=== PATIENT | female | born 1965 | race Caucasian/White ===

== ENCOUNTER 2017-12-08 08:32 | Emergency (ER) | payer OTHER ==
[2017-12-08] MEDS ORDERED: PROMETHAZINE 25 MG/ML VIAL ONE (09:28)
[2017-12-08] MEDS ORDERED: KETOROLAC 30 MG/ML INJ ONE (09:29)
--- NOTE | 2017-12-08 10:26 | EDPHYS ---
Physician Documentation [facility] Name: Maribel Soto Age: 52 yrs Sex: Female : 1965 Arrival Date: 12/08/2017 Time: 08:35 Bed 8 Private MD: out of town, doctor ED Physician Zaki Serra HPI: 12/08 09:43 This 52 yrs old Female presents to ER via Ambulatory with complaints of snw Headache. 09:43 The patient complains of pain to the right eye. The patient describes the headache as snw aching, pounding. Onset: The symptoms/episode began/occurred gradually, 5 day(s) ago, and became persistent. Associated signs and symptoms: Pertinent positives: malaise, Photophobia Pertinent negatives: fever, neck stiffness. Severity of symptoms: At its worst the pain was moderate, severe. Headache History: Other pt states this headache is more localized behind right eye than other migraines. Has used sumatriptan 2 times in past 24 hours. The patient has experienced similar episodes in the past. It is unknown whether or not the patient has recently seen a physician. sees Dr. Teixeira, pt with hx of lupus. 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 - Irregular menses hj Historical: - Allergies: 08:53 BACLOFEN; iw 08:53 Opana; iw 08:53 PENICILLINS; iw 08:53 Zofran; iw - Home Meds: 08:53 fentanyl 50 mcg/hr Topical pt72 1 patch every 72 hours [Active]; BuSpar 100mg Oral iw three times a day [Active]; lithium carbonate 450 mg Oral TbER 2 tabs nightly [Active]; Phenergan Oral 50 mg every 6 hours [Active]; sumatriptan succinate 6 mg/0.5 mL Sub-Q syrg as needed [Active]; gabapentin oral oral 3 times per day [Active]; naratriptan oral oral daily [Active]; Seroquel Oral [Active]; - PMHx: 08:53 Anxiety; Asthma; Chronic pain; Diverticulitis; Fibromyalgia; Lupus; Migraines; Ulcers; iw Bryce; - PSHx: 08:54 Unable to obtain; hj - Immunization history:: Adult Immunizations up to date. - Ebola Screening: : Patient negative for fever greater than or equal to 101.5 degrees Fahrenheit, and additional compatible Ebola Virus Disease symptoms Patient denies exposure to infectious person Patient denies travel to an Ebola-affected area in the 21 days before illness onset No symptoms or risks identified at this time. - Social history:: Smoking status: Patient uses tobacco products, Patient/guardian denies using alcohol. ROS: 09:42 Constitutional: Negative for fever, chills, and weight loss, Eyes: Negative for injury, snw pain, redness, and discharge, ENT: Negative for injury, pain, and discharge, Neck: Negative for injury, pain, and swelling, Cardiovascular: Negative for chest pain, palpitations, and edema, Respiratory: Negative for shortness of breath, cough, wheezing, and pleuritic chest pain, Abdomen/GI: Negative for abdominal pain, nausea, vomiting, diarrhea, and constipation, Back: Negative for injury and pain, : Negative for injury, bleeding, discharge, and swelling, MS/Extremity: Negative for injury and deformity, Skin: Negative for injury, rash, and discoloration. 09:42 Neuro: Positive for headache. Exam: 09:42 Constitutional: This is a well developed, well nourished patient who is awake, alert, snw and in no acute distress. 09:42 Eyes: Pupils equal round and reactive to light, extra-ocular motions intact. Lids and lashes normal. Conjunctiva and sclera are non-icteric and not injected. Cornea within normal limits. Periorbital areas with no swelling, redness, or edema. ENT: Nares patent. No nasal discharge, no septal abnormalities noted. Tympanic membranes are normal and external auditory canals are clear. Oropharynx with no redness, swelling, or masses, exudates, or evidence of obstruction, uvula midline. Mucous membranes moist. Neck: Trachea midline, no thyromegaly or masses palpated, and no cervical lymphadenopathy. Supple, full range of motion without nuchal rigidity, or vertebral point tenderness. No Meningismus. Chest/axilla: Normal chest wall appearance and motion. Nontender with no deformity. No lesions are appreciated. Cardiovascular: Regular rate and rhythm with a normal S1 and S2. No gallops, murmurs, or rubs. Normal PMI, no JVD. No pulse deficits. Respiratory: Lungs have equal breath sounds bilaterally, clear to auscultation and percussion. No rales, rhonchi or wheezes noted. No increased work of breathing, no retractions or nasal flaring. Abdomen/GI: Soft, non-tender, with normal bowel sounds. No distension or tympany. No guarding or rebound. No evidence of tenderness throughout. Back: No spinal tenderness. No costovertebral tenderness. Full range of motion. Skin: Warm, dry with normal turgor. Normal color with no rashes, no lesions, and no evidence of cellulitis. MS/ Extremity: Pulses equal, no cyanosis. Neurovascular intact. Full, normal range of motion. Psych: Awake, alert, with orientation to person, place and time. Behavior, mood, and affect are within normal limits. 09:42 Head/face: Noted is pallor. 09:42 Neuro: Orientation: is normal, Mentation: is normal, Motor: is normal, Sensation: is normal, seizure activity, is not displayed by the patient. Vital Signs: 08:55 BP 92 / 71; Pulse 84; Resp 16; Temp 98.2(O); Pulse Ox 98% on R/A; iw 10:06 BP 112 / 97; Pulse 80; Resp 18; Pulse Ox 98% on R/A; hj 10:24 BP 118 / 95; Pulse 75; Resp 18; Pulse Ox 100% on R/A; hj MDM: 08:45 Patient medically screened. [facility] 12/08 08:45 Order name: Urine Culture [facility] 12/08 08:45 Order name: Urine Microscopic Only [facility] 12/08 09:31 Order name: Urine Dipstick--Ancillary (enter results) 12/08 08:45 Order name: Urine Dipstick-Ancillary (obtain specimen); Complete Time: 09:31 snw Administered Medications: 08:52 CANCELLED (Duplicate Order): fentaNYL (PF) 50 mcg IM once snw 09:33 Drug: TORadol 60 mg Route: IM; Site: left deltoid; hj 10:31 Follow up: Response: No adverse reaction; Pain is decreased 09:33 Drug: Phenergan 25 mg Route: IM; Site: right deltoid; hj 10:31 Follow up: Response: No adverse reaction hj Disposition: 12/08/17 10:25 Discharged to Home. Impression: Migraine, unspecified, not intractable. - Condition is Stable. - Discharge Instructions: Migraine Headache, Rehydration, Adult. - Prescriptions for Diclofenac Sodium 75 mg Oral Tablet Sustained Release - take 1 tablet by ORAL route 2 times per day; 30 tablet. promethazine 25 mg Oral Tablet - take 1 tablet by ORAL route every 6 hours As needed; 20 tablet. - Medication Reconciliation Form, Thank You Letter, Antibiotic Education, Prescription Opioid Use form. - Follow up: Private Physician; When: 1 - 2 days; Reason: Recheck today's complaints, Continuance of care, Re-evaluation by your physician. Follow up: Emergency Department; When: As needed; Reason: Worsening of condition. Addendum: 12/11/2017 06:15 Co-signature as Attending Physician, Zaki Serra MD. g s Signatures: Dispatcher [employer] EDMS Yaima Izquierdo, ALIGNMENT MECHANIC-C ALIGNMENT MECHANIC-Csnw Hina Torrez, RN RN Art Martin RN RN Zaki Albarado MD MD gs Corrections: (The following items were deleted from the chart) 12/08 08:52 08:50 fentaNYL (PF) 50 mcg IM once ordered. snw snw 10:31 10:25 12/08/2017 10:25 Discharged to Home. Impression: Migraine, unspecified, not hj intractable. Condition is Stable. Forms are Medication Reconciliation Form, Thank You Letter, Antibiotic Education, Prescription Opioid Use. Follow up: Private Physician; When: 1 - 2 days; Reason: Recheck today's complaints, Continuance of care, Re-evaluation by your physician. Follow up: Emergency Department; When: As needed; Reason: Worsening of condition. snw
--- NOTE | 2017-12-08 10:26 | ER ---
Nurse's Notes [facility] Name: Maribel Soto Age: 52 yrs Sex: Female : 1965 Arrival Date: 12/08/2017 Time: 08:35 Bed 8 Private MD: out of town, doctor Diagnosis: Migraine, unspecified, not intractable Presentation: 12/08 08:54 Presenting complaint: Patient states: has had migraine since , +hx of iw migraines, has been taking home meds with no relief. Transition of care: patient was not received from another setting of care. Onset of symptoms was December 04, 2017. Risk Assessment: Do you want to hurt yourself or someone else? Patient reports no desire to harm self or others. Initial Sepsis Screen: Does the patient meet any 2 criteria? No. Patient's initial sepsis screen is negative. Does the patient have a suspected source of infection? No. Patient's initial sepsis screen is negative. Care prior to arrival: None. 08:54 Method Of Arrival: Ambulatory iw 08:54 Acuity: LILIAN 3 iw Triage Assessment: 08:54 General: Appears in no apparent distress. uncomfortable, Behavior is calm, cooperative, hj appropriate for age. Pain: Complains of pain in head Pain currently is 10 out of 10 on a pain scale. Pain began Also complains of nausea. EENT: No signs and/or symptoms were reported regarding the EENT system. Neuro: Level of Consciousness is awake, alert, obeys commands, Oriented to person, place, time, situation, Appropriate for age. Cardiovascular: Denies chest pain, Heart tones S1 S2 present Capillary refill < 3 seconds Patient's skin is warm and dry. Respiratory: Airway is patent Respiratory effort is even, unlabored, Respiratory pattern is regular, symmetrical. GI: No signs and/or symptoms were reported involving the gastrointestinal system. : No signs and/or symptoms were reported regarding the genitourinary system. Derm: No signs and/or symptoms reported regarding the dermatologic system. Musculoskeletal: No signs and/or symptoms reported regarding the musculoskeletal system. 08:54 Headache History: The patient has had previous headaches. 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 - Irregular menses hj Historical: - Allergies: 08:53 BACLOFEN; iw 08:53 Opana; iw 08:53 PENICILLINS; iw 08:53 Zofran; iw - Home Meds: 08:53 fentanyl 50 mcg/hr Topical pt72 1 patch every 72 hours [Active]; BuSpar 100mg Oral iw three times a day [Active]; lithium carbonate 450 mg Oral TbER 2 tabs nightly [Active]; Phenergan Oral 50 mg every 6 hours [Active]; sumatriptan succinate 6 mg/0.5 mL Sub-Q syrg as needed [Active]; gabapentin oral oral 3 times per day [Active]; naratriptan oral oral daily [Active]; Seroquel Oral [Active]; - PMHx: 08:53 Anxiety; Asthma; Chronic pain; Diverticulitis; Fibromyalgia; Lupus; Migraines; Ulcers; iw Bryce; - PSHx: 08:54 Unable to obtain; hj - Immunization history:: Adult Immunizations up to date. - Ebola Screening: : Patient negative for fever greater than or equal to 101.5 degrees Fahrenheit, and additional compatible Ebola Virus Disease symptoms Patient denies exposure to infectious person Patient denies travel to an Ebola-affected area in the 21 days before illness onset No symptoms or risks identified at this time. - Social history:: Smoking status: Patient uses tobacco products, Patient/guardian denies using alcohol. Screenin:54 Abuse screen: Denies threats or abuse. Denies injuries from another. Nutritional hj screening: No deficits noted. Tuberculosis screening: No symptoms or risk factors identified. Fall Risk None identified. Assessment: 09:00 Reassessment: see triage for assessment;. hj 09:53 Reassessment: Patient and/or family updated on plan of care and expected duration. Pain hj level reassessed. Patient is alert, oriented x 3, equal unlabored respirations, skin warm/dry/pink. Patient states feeling better. Patient states symptoms have improved. 10:30 Reassessment: Patient and/or family updated on plan of care and expected duration. Pain hj level reassessed. Vital Signs: 08:55 BP 92 / 71; Pulse 84; Resp 16; Temp 98.2(O); Pulse Ox 98% on R/A; iw 10:06 BP 112 / 97; Pulse 80; Resp 18; Pulse Ox 98% on R/A; hj 10:24 BP 118 / 95; Pulse 75; Resp 18; Pulse Ox 100% on R/A; hj ED Course: 08:35 Patient arrived in ED. mr 08:36 out of town, doctor is Private Physician. mr 08:43 Yaima Izquierdo FNP-C is [facility]. snw 08:43 Zaki Serra MD is Attending Physician. snw 08:54 Patient has correct armband on for positive identification. Bed in low position. Call hj light in reach. Side rails up X 1. 08:55 Triage completed. iw 08:55 Arm band placed on. iw 09:31 Urine collected: clean catch specimen, clear, claude colored. jb1 09:39 Art Garland, RN is Primary Nurse. hj 10:29 No provider procedures requiring assistance completed. Patient did not have IV access hj during this emergency room visit. Administered Medications: 08:52 CANCELLED (Duplicate Order): fentaNYL (PF) 50 mcg IM once snw 09:33 Drug: TORadol 60 mg Route: IM; Site: left deltoid; hj 10:31 Follow up: Response: No adverse reaction; Pain is decreased hj 09:33 Drug: Phenergan 25 mg Route: IM; Site: right deltoid; hj 10:31 Follow up: Response: No adverse reaction hj Outcome: 10:25 Discharge ordered by MD. snw 10:29 Discharged to home ambulatory. hj 10:29 Condition: stable 10:29 Discharge instructions given to patient, Instructed on discharge instructions, follow up and referral plans. medication usage, Demonstrated understanding of instructions, follow-up care, medications, Prescriptions given X 2. 10:31 Patient left the ED. hj Signatures: Jose Phillips jb1 Yaima Izquierdo FNP-C FNP-Venkat Adelia Schreiber Hina Torrez, RN RN iw Art Garland, RN RN
[2017-12-08 10:47] VITALS: TEMP 98.2
[2017-12-08 10:50] VITALS: BP 118/95; O2SAT 100
[2017-12-08 10:59] LABS: Urine Bacteria 20-50 /HPF (<20); Urine Culture Reflex Order NOT NEEDED; Urine RBC <5 /HPF (NONE SEEN)
[2017-12-08 15:45] LABS: Urine Blood NEGATIVE (NEG); Urine Glucose NEGATIVE (NEG); Urine Protein 1+ (NEG)
== END 2017-12-08 10:31 | disposition home or self-care (01) ==
LOC: ER 08:32
DX: G43.909 Migraine, unspecified, not intractable, without status migrainosus (principal); J45.909 Unspecified asthma, uncomplicated; M32.9 Systemic lupus erythematosus, unspecified; Z88.6 Allergy status to analgesic agent; Z88.0 Allergy status to penicillin; Z88.8 Allergy status to other drugs, medicaments and biological substances
CPT/HCPCS: 87086; 87088; 96372; 99283; J2550; 81003; 81015

== ENCOUNTER 2018-02-10 08:44 | Emergency (ER) | payer OTHER ==
--- NOTE | 2018-02-10 09:19 | EDPHYS ---
Physician Documentation [facility] Name: Maribel Soto Age: 52 yrs Sex: Female : 1965 Arrival Date: 02/10/2018 Time: 08:45 Bed 18 Private MD: Valeria Sawant ED Physician Kavon Mack HPI: 02/10 08:57 This 52 yrs old Female presents to ER via Unassigned with complaints of Fall jr8 Injury - FOOT. 08:57 Details of fall: The patient fell from an upright position. Onset: The symptoms/episode jr8 began/occurred acutely, 2 day(s) ago. Associated injuries: The patient sustained left foot. Severity of symptoms: At their worst the symptoms were moderate, in the emergency department the symptoms are unchanged. It is unknown whether or not the patient has had similar symptoms in the past. The patient has not recently seen a physician. Patient with history of seizures. Stated that she had one on Friday causing her to hurt her left foot. Pain since then that is not getting better . 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 - Hysterectomy sv Historical: - Allergies: 08:58 BACLOFEN; sv 08:58 Opana; sv 08:58 PENICILLINS; sv 08:58 Zofran; sv - Home Meds: 08:58 BuSpar 100mg Oral three times a day [Active]; fentanyl 50 mcg/hr Topical pt72 1 patch sv every 72 hours [Active]; gabapentin Oral 3 times per day [Active]; lithium carbonate 450 mg Oral TbER 2 tabs nightly [Active]; naratriptan Oral daily [Active]; Phenergan Oral 50 mg every 6 hours [Active]; Seroquel Oral [Active]; sumatriptan succinate 6 mg/0.5 mL Sub-Q syrg as needed [Active]; - PMHx: 08:58 Anxiety; Asthma; Chronic pain; Diverticulitis; Fibromyalgia; Bryce; Lupus; sv Migraines; Ulcers; - PSHx: 08:58 abdominal; sv - Immunization history:: Adult Immunizations unknown. - Social history:: Smoking status: unknown. - Ebola Screening: : No symptoms or risks identified at this time. ROS: 08:57 Eyes: Negative for injury, pain, redness, and discharge, ENT: Negative for injury, jr8 pain, and discharge, Neck: Negative for injury, pain, and swelling, Cardiovascular: Negative for chest pain, palpitations, and edema, Respiratory: Negative for shortness of breath, cough, wheezing, and pleuritic chest pain, Abdomen/GI: Negative for abdominal pain, nausea, vomiting, diarrhea, and constipation, Back: Negative for injury and pain, Skin: Negative for injury, rash, and discoloration, Neuro: Negative for headache, weakness, numbness, tingling, and seizure. 08:57 MS/extremity: Positive for abrasion, swelling, tenderness, of the left foot, blister. Exam: 08:57 Head/Face: Normocephalic, atraumatic. Eyes: Pupils equal round and reactive to light, jr8 extra-ocular motions intact. Lids and lashes normal. Conjunctiva and sclera are non-icteric and not injected. Cornea within normal limits. Periorbital areas with no swelling, redness, or edema. ENT: Nares patent. No nasal discharge, no septal abnormalities noted. Tympanic membranes are normal and external auditory canals are clear. Oropharynx with no redness, swelling, or masses, exudates, or evidence of obstruction, uvula midline. Mucous membranes moist. Neck: Trachea midline, no thyromegaly or masses palpated, and no cervical lymphadenopathy. Supple, full range of motion without nuchal rigidity, or vertebral point tenderness. No Meningismus. Chest/axilla: Normal chest wall appearance and motion. Nontender with no deformity. No lesions are appreciated. Cardiovascular: Regular rate and rhythm with a normal S1 and S2. No gallops, murmurs, or rubs. Normal PMI, no JVD. No pulse deficits. Respiratory: Lungs have equal breath sounds bilaterally, clear to auscultation and percussion. No rales, rhonchi or wheezes noted. No increased work of breathing, no retractions or nasal flaring. Abdomen/GI: Soft, non-tender, with normal bowel sounds. No distension or tympany. No guarding or rebound. No evidence of tenderness throughout. Back: No spinal tenderness. No costovertebral tenderness. Full range of motion. Skin: Warm, dry with normal turgor. Normal color with no rashes, no lesions, and no evidence of cellulitis. Neuro: Awake and alert, GCS 15, oriented to person, place, time, and situation. Cranial nerves II-XII grossly intact. Motor strength 5/5 in all extremities. Sensory grossly intact. Cerebellar exam normal. Normal gait. 08:57 Musculoskeletal/extremity: Extremities: grossly normal except: noted in the left foot: Patient has abrasion and tenderness to the MTP of the first toe. On lateral aspect of first toe is a blister with mild erythema present. Tender to palpation. No other trauma noted . Vital Signs: 08:59 BP 117 / 84; Pulse 103; Resp 20; Temp 97; Pulse Ox 98% ; Weight 92.99 kg; Height 5 ft. sv 9 in. (175.26 cm); Pain 8/10; 08:59 Body Mass Index 30.27 (92.99 kg, 175.26 cm) sv MDM: 08:56 Patient medically screened. jr8 09:17 Data reviewed: vital signs, nurses notes, radiologic studies, plain films, and as a jr8 result, I will discharge patient. Data interpreted: Pulse oximetry: on room air is 98 %. Interpretation: normal. Counseling: I had a detailed discussion with the patient and/or guardian regarding: the historical points, exam findings, and any diagnostic results supporting the discharge/admit diagnosis, radiology results, the need for outpatient follow up, a database marketing analyst, to return to the emergency department if symptoms worsen or persist or if there are any questions or concerns that arise at home. ED course: No acute fracture identified. Erythema noted where blister is. Will cover with antibiotics . 02/10 08:57 Order name: XRAY Foot LEFT 3 View jr8 02/10 08:57 Order name: Wound Care; Complete Time: 09:23 jr8 Administered Medications: No medications were administered Disposition: 10:06 Co-signature as Attending Physician, Kavon Mack MD. rn Disposition: 02/10/18 09:19 Discharged to Home. Impression: Contusion of left foot, Blister (nonthermal) of foot. - Condition is Stable. - Discharge Instructions: Foot Contusion. - Prescriptions for Keflex 500 mg Oral Capsule - take 1 capsule by ORAL route every 6 hours for 5 days; 20 capsule. - Medication Reconciliation Form, Thank You Letter, Antibiotic Education, Prescription Opioid Use form. - Follow up: Private Physician; When: 2 - 3 days; Reason: Recheck today's complaints, Continuance of care, Re-evaluation by your physician. - Problem is new. - Symptoms have improved. Signatures: Dispatcher [employer] Courtney Cancino RN RN Kavon Gonzáles MD MD rn Roszak, Josh, PA PA jr8 Juliana Childers RN RN ph Corrections: (The following items were deleted from the chart) 09:48 09:19 02/10/2018 09:19 Discharged to Home. Impression: Contusion of left foot; Blister ph (nonthermal) of foot. Condition is Stable. Forms are Medication Reconciliation Form, Thank You Letter, Antibiotic Education, Prescription Opioid Use. Follow up: Private Physician; When: 2 - 3 days; Reason: Recheck today's complaints, Continuance of care, Re-evaluation by your physician. Problem is new. Symptoms have improved. jr8
--- NOTE | 2018-02-10 09:19 | ER ---
Nurse's Notes [facility] Name: Maribel Soto Age: 52 yrs Sex: Female : 1965 Arrival Date: 02/10/2018 Time: 08:45 Bed 18 Private MD: Valeria Sawant Diagnosis: Contusion of left foot;Blister (nonthermal) of foot Presentation: 02/10 08:50 Presenting complaint: Patient states: fall onto gravel after a seizure on Friday. c/o sv left foot pain. Reports she attempted to take out the gravel of her left foot. Care prior to arrival: None. Mechanism of Injury: Fall from standing position. Trauma event details: Injury occurred in the [facility], Injury occurred: at home. Injury occurred: February 08, 2018. 08:50 Acuity: LILIAN 3 sv 08:50 Method Of Arrival: Wheelchair sv 08:50 Transition of care: patient was not received from another setting of care. Onset of sv symptoms was February 08, 2018. Risk Assessment: Do you want to hurt yourself or someone else? Patient reports no desire to harm self or others. 09:00 Initial Sepsis Screen: Does the patient meet any 2 criteria? No. Patient's initial ph sepsis screen is negative. Does the patient have a suspected source of infection? No. Patient's initial sepsis screen is negative. Triage Assessment: 19:28 General: Appears. 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 N/A - Hysterectomy sv Trauma Activation: Not Applicable Physician: ED Physician; Name: ; Notified At: ; Arrived At: Physician: General Surgeon; Name: ; Notified At: ; Arrived At: Physician: Radiology; Name: ; Notified At: ; Arrived At: Physician: Respiratory; Name: ; Notified At: ; Arrived At: Physician: Lab; Name: ; Notified At: ; Arrived At: Historical: - Allergies: 08:58 BACLOFEN; sv 08:58 Opana; sv 08:58 PENICILLINS; sv 08:58 Zofran; sv - Home Meds: 08:58 BuSpar 100mg Oral three times a day [Active]; fentanyl 50 mcg/hr Topical pt72 1 patch sv every 72 hours [Active]; gabapentin Oral 3 times per day [Active]; lithium carbonate 450 mg Oral TbER 2 tabs nightly [Active]; naratriptan Oral daily [Active]; Phenergan Oral 50 mg every 6 hours [Active]; Seroquel Oral [Active]; sumatriptan succinate 6 mg/0.5 mL Sub-Q syrg as needed [Active]; - PMHx: 08:58 Anxiety; Asthma; Chronic pain; Diverticulitis; Fibromyalgia; Bryce; Lupus; sv Migraines; Ulcers; - PSHx: 08:58 abdominal; sv - Immunization history:: Adult Immunizations unknown. - Social history:: Smoking status: unknown. - Ebola Screening: : No symptoms or risks identified at this time. Screenin:00 Abuse screen: Denies threats or abuse. Denies injuries from another. Nutritional ph screening: No deficits noted. Tuberculosis screening: No symptoms or risk factors identified. Fall Risk None identified. Assessment: 09:00 General: Appears in no apparent distress. comfortable, Behavior is calm, cooperative, ph appropriate for age. Pain: Complains of pain in left foot. Neuro: Level of Consciousness is awake, alert, obeys commands, Oriented to person, place, time, situation. Cardiovascular: Capillary refill < 3 seconds Patient's skin is warm and dry. Pulses are palpable in right dorsalis pedis artery and left dorsalis pedis artery. Respiratory: Airway is patent Respiratory effort is even, unlabored. GI: No signs and/or symptoms were reported involving the gastrointestinal system. Derm: Skin is healthy with good turgor, Skin is pink, warm \T\ dry. Musculoskeletal: Circulation, motion, and sensation intact. Range of motion: intact in all extremities. Injury Description: Abrasion sustained to left first toe and medial aspect of left toes. Vital Signs: 08:59 BP 117 / 84; Pulse 103; Resp 20; Temp 97; Pulse Ox 98% ; Weight 92.99 kg; Height 5 ft. sv 9 in. (175.26 cm); Pain 8/10; 08:59 Body Mass Index 30.27 (92.99 kg, 175.26 cm) sv ED Course: 08:45 Patient arrived in ED. sb2 08:46 Valeria Sawant MD is Private Physician. sb2 08:48 [facility] jr8 08:48 Kavon Mack MD is Attending Physician. jr8 08:50 Arm band placed on right wrist. Patient placed in an exam room, on a stretcher. sv 08:55 Nurse Practitioner and/or Physician Faucets Assembler to see patient. sv 08:57 Triage completed. sv 09:00 Patient has correct armband on for positive identification. Bed in low position. Call light in reach. 09:06 Juliana Childers, RN is Primary Nurse. ph 09:10 X-ray completed. Portable x-ray completed in exam room. jr1 09:10 XRAY Foot LEFT 3 View In Process Unspecified. EDMS 09:48 No provider procedures requiring assistance completed. Patient did not have IV access ph during this emergency room visit. Administered Medications: No medications were administered Outcome: 09:19 Discharge ordered by . jr8 09:48 Patient left the ED. ph 09:48 Discharged to home ambulatory. ph 09:48 Condition: good 09:48 Discharge instructions given to patient, Instructed on discharge instructions, follow up and referral plans. medication usage, Demonstrated understanding of instructions, follow-up care, medications, Prescriptions given X 1. Signatures: Dispatcher [employer] EDIN Courtney Hong, RN RN Chyna Herrera jr1 Federico Francois PA PA jr8 Juliana Childers, RN RN Susannah Arnett sb2
[2018-02-10 10:02] VITALS: BP 117/84; TEMP 97; O2SAT 98
--- NOTE | 2018-02-10 10:08 | RAD REPORT ---
EXAM DESCRIPTION: RAD - Foot Left 3 View - 02/10/2018 9:14 am CLINICAL HISTORY: Fall, foot pain, possible retained foreign bodies COMPARISON: None. FINDINGS: No fracture, dislocation or periosteal reaction. No acute or destructive bony process. Fa int lucency along the medial base fifth proximal phalanx on the AP projection is believed be volume a veraging affect rather than fracture. Small plantar spur is present. Mild degenerative change seen at the first MTP joint. Metatarsal head is slightly flattened with minimal spurring along the articular margins. No radiopaque foreign body is identifiable. No air in the soft tissues. IMPRESSION: No acute bone or joint finding. Minimal degenerative change at the first MTP joint. No identifiable foreign body.
== END 2018-02-10 09:48 | disposition home or self-care (01) ==
LOC: ER 08:44
DX: S90.32XA Contusion of left foot, initial encounter (principal); S90.822A Blister (nonthermal), left foot, initial encounter; W19.XXXA Unspecified fall, initial encounter; Y93.9 Activity, unspecified; Y92.9 Unspecified place or not applicable; Z88.0 Allergy status to penicillin; Z88.1 Allergy status to other antibiotic agents; Z88.8 Allergy status to other drugs, medicaments and biological substances; F41.9 Anxiety disorder, unspecified
CPT/HCPCS: 99283

== ENCOUNTER 2018-11-24 09:56 | Emergency (ER) | payer OTHER ==
--- NOTE | 2018-11-24 10:55 | EKG ---
Test Date: 2018-11-24 Test Time: 10:34:03 Nitroglycerin Separator Operator: ACE MEASUREMENT RESULTS: Intervals: Rate: 80 [place]: 178 QRSD: 86 QT: 384 QTc: 442 [place]: P: 41 [place]: 178 QRS: 23 T: 55 INTERPRETIVE STATEMENTS: Normal sinus rhythm Low voltage QRS Borderline ECG Compared to ECG 01/16/2016 10:13:16 Low QRS voltage now present Electronically Signed On 11-24-18 10:54:26 CDT by Tom Johnston
[2018-11-24] MEDS ORDERED: KETOROLAC 30 MG/ML INJ ONE (11:05)
[2018-11-24] MEDS ORDERED: dexAMETHasone 10 MG/ML VIAL ONE (11:05)
[2018-11-24 11:14] LABS: Basophils % 0.3 % (0-1.3); Eosinophils % 0.2 % (0-4.4); Hematocrit 45.6 % (36.0-45.0); Lymphocytes % 11.5 % (15.3-44.8); MPV 6.7 fL (7.6-11.3); Monocytes % 3.6 % (3.3-12.3); RBC Red Blood Cell Count 5.49 M/uL (3.86-4.86)
--- NOTE | 2018-11-24 11:15 | RAD REPORT ---
EXAM DESCRIPTION: RAD - Chest Single View - 11/24/2018 11:09 am CLINICAL HISTORY: CHEST PAIN Chest pain. COMPARISON: CHEST SINGLE VIEW dated 05/27/2015; CHEST PA AND LAT 2 VIEW dated 06/08/2014; CHEST SINGLE VIEW dated 09/03/2013; CHEST SINGLE VIEW dated 04/03/2013 FINDINGS: Portable technique limits examination quality. The lungs are grossly clear. The heart is normal in size. No displaced fractures.Left-sided port cath eter its tip in the SVC. IMPRESSION: No acute intrathoracic process suspected.
[2018-11-24 11:17] LABS: Protime INR 0.96
[2018-11-24] MEDS ORDERED: PROMETHAZINE 25 MG/ML VIAL ONE (11:23)
[2018-11-24 11:46] LABS: ALT/SGPT 16 U/L (12-78); AST/SGOT 11 U/L (15-37); Albumin 4.4 g/dL (3.4-5.0); Alkaline Phosphatase ND U/L (45-117); BUN Blood Urea Nitrogen 18 mg/dL (7-18); Bicarbonate 24 mmol/L (21-32); Bilirubin Direct 0.1 mg/dL (0-0.2); Bilirubin Total 0.5 mg/dL (0.2-1.0); Glucose Level 121 mg/dL (74-106); Magnesium 2.3 mg/dL (1.8-2.4); NT PRO-BNP 90 pg/mL (<125); Potassium 4.4 mmol/L (3.5-5.1); Protein, Total 8.2 g/dL (6.4-8.2); Sodium Level 138 mmol/L (136-145); Troponin (Emerg Dept Use Only) < 0.02 ng/mL (0.0-0.045)
[2018-11-24] MEDS ORDERED: PROMETHAZINE 12.5 MG/SUPP PR ONE (11:48)
--- NOTE | 2018-11-24 12:13 | EDPHYS ---
Physician Documentation [facility] Name: Maribel Soto Age: 53 yrs Sex: Female : 1965 Arrival Date: 11/24/2018 Time: 09:58 Bed 24 Private MD: ED Physician Baljit Rey HPI: 11/24 11:00 This 53 yrs old Female presents to ER via Wheelchair with complaints of jr8 Vomiting, Palpitations. 11:00 The patient presents to the emergency department with nausea, vomiting, abdominal pain, jr8 of the right upper quadrant and left upper quadrant. Onset: The symptoms/episode began/occurred gradually, 2 day(s) ago, and became worse and became persistent. Possible causes: unknown. The symptoms are aggravated by nothing. The symptoms are alleviated by nothing. Associated signs and symptoms: Pertinent positives: chest pain. Severity of symptoms: At their worst the symptoms were moderate in the emergency department the symptoms are unchanged. The patient has experienced similar episodes in the past, multiple times, chronically. The patient has not recently seen a physician. Patient with chronic pain, lupus, and fibromyalgia. History of n/v and chest pain amongst headaches and other musculoskeletal pain. Stated that she is having a flare up with worsening of pain. Has been taking her medications as prescribed . Historical: - Allergies: 10:20 BACLOFEN; sg 10:20 Opana; sg 10:20 PENICILLINS; sg 10:20 Zofran; sg - PMHx: 10:20 Anxiety; Asthma; Chronic pain; Diverticulitis; Fibromyalgia; Bryce; Lupus; sg Migraines; Ulcers; - PSHx: 10:20 abdominal; sg - Immunization history:: Adult Immunizations unknown. - Social history:: Smoking status: Patient/guardian denies using tobacco. - Ebola Screening: : Patient negative for fever greater than or equal to 101.5 degrees Fahrenheit, and additional compatible Ebola Virus Disease symptoms Patient denies exposure to infectious person Patient denies travel to an Ebola-affected area in the 21 days before illness onset No symptoms or risks identified at this time. ROS: 11:00 Eyes: Negative for injury, pain, redness, and discharge, ENT: Negative for injury, jr8 pain, and discharge, Respiratory: Negative for shortness of breath, cough, wheezing, and pleuritic chest pain, Back: Negative for injury and pain, MS/Extremity: Negative for injury and deformity, Skin: Negative for injury, rash, and discoloration, Neuro: Negative for headache, weakness, numbness, tingling, and seizure. 11:00 Neck: Positive for pain with movement, pain at rest, tenderness, Negative for bony tenderness. 11:00 Cardiovascular: Positive for chest pain, Negative for edema, orthopnea, palpitations, paroxysmal nocturnal dyspnea. 11:00 Abdomen/GI: Positive for abdominal pain, nausea and vomiting, Negative for diarrhea, constipation, abdominal cramps, abdominal distension, anorexia, dysphagia, hematemesis, black/tarry stool, rectal pain, rectal bleeding, bowel incontinence, flatulence. Exam: 11:00 Eyes: Pupils equal round and reactive to light, extra-ocular motions intact. Lids and jr8 lashes normal. Conjunctiva and sclera are non-icteric and not injected. Cornea within normal limits. Periorbital areas with no swelling, redness, or edema. ENT: Nares patent. No nasal discharge, no septal abnormalities noted. Tympanic membranes are normal and external auditory canals are clear. Oropharynx with no redness, swelling, or masses, exudates, or evidence of obstruction, uvula midline. Mucous membranes moist. Neck: Trachea midline, no thyromegaly or masses palpated, and no cervical lymphadenopathy. Supple, full range of motion without nuchal rigidity, or vertebral point tenderness. No Meningismus. Cardiovascular: Regular rate and rhythm with a normal S1 and S2. No gallops, murmurs, or rubs. Normal PMI, no JVD. No pulse deficits. Respiratory: Lungs have equal breath sounds bilaterally, clear to auscultation and percussion. No rales, rhonchi or wheezes noted. No increased work of breathing, no retractions or nasal flaring. Abdomen/GI: Soft, non-tender, with normal bowel sounds. No distension or tympany. No guarding or rebound. No evidence of tenderness throughout. Back: No spinal tenderness. No costovertebral tenderness. Full range of motion. Skin: Warm, dry with normal turgor. Normal color with no rashes, no lesions, and no evidence of cellulitis. MS/ Extremity: Pulses equal, no cyanosis. Neurovascular intact. Full, normal range of motion. Neuro: Awake and alert, GCS 15, oriented to person, place, time, and situation. Cranial nerves II-XII grossly intact. Motor strength 5/5 in all extremities. Sensory grossly intact. Cerebellar exam normal. Normal gait. 11:00 Chest/axilla: Inspection: normal, Palpation: tenderness, that is moderate, of the anterior aspect of left upper chest. Vital Signs: 10:19 BP 156 / 79; Pulse 92; Resp 17; Temp 97.6; Pulse Ox 100% on R/A; Weight 104.33 kg (R); sg Height 5 ft. 9 in. (175.26 cm); Pain 7/10; 12:13 BP 120 / 70; Pulse 84; Resp 16; Pulse Ox 100% on R/A; aj 10:19 Body Mass Index 33.96 (104.33 kg, 175.26 cm) sg MDM: 10:11 Patient medically screened. [facility] 12:11 Data reviewed: vital signs, nurses notes, lab test result(s), EKG, radiologic studies, [facility] plain films. Data interpreted: Pulse oximetry: on room air is 100 %. Interpretation: normal. Counseling: I had a detailed discussion with the patient and/or guardian regarding: the historical points, exam findings, and any diagnostic results supporting the discharge/admit diagnosis, lab results, radiology results, the need for outpatient follow up, a family practitioner, a electrostatic painter, to return to the emergency department if symptoms worsen or persist or if there are any questions or concerns that arise at home. Response to treatment: the patient's symptoms have markedly improved after treatment. ED course: No acute finding on labs, imagine, or ecg. Pain more then likely a sequela of her chronic pain. Recommended f/u with PCP. If worse to come back. Patient good with this plan . 11/24 10:35 Order name: Basic Metabolic Panel [facility] 11/24 10:35 Order name: CBC with Diff 11/24 10:35 Order name: LFT's; Complete Time: 11:48 [facility] 11/24 10:35 Order name: Magnesium; Complete Time: 11:48 [facility] 11/24 10:35 Order name: NT PRO-BNP; Complete Time: 11:48 [facility] 11/24 10:35 Order name: PT-INR; Complete Time: 11:31 [facility] 11/24 10:35 Order name: Troponin (emerg Dept Use Only); Complete Time: 11:48 11/24 10:35 Order name: XRAY Chest (1 view); Complete Time: 11:16 11/24 10:37 Order name: Basic Metabolic Panel; Complete Time: 11:48 EDMS 11/24 10:37 Order name: CBC with Automated Diff; Complete Time: 11:15 EDMS 11/24 10:35 Order name: EKG; Complete Time: 10:37 11/24 10:35 Order name: Cardiac monitoring; Complete Time: 11:12 11/24 10:35 Order name: EKG - Nurse/Tech; Complete Time: 11:12 11/24 10:35 Order name: IV Saline Lock; Complete Time: 11:12 11/24 10:35 Order name: Labs collected and sent; Complete Time: 11:12 11/24 10:35 Order name: O2 Per Protocol; Complete Time: 11:12 11/24 10:35 Order name: O2 Sat Monitoring; Complete Time: 11:12 Administered Medications: 11:13 Drug: TORadol - Ketorolac 15 mg Route: IVP; Site: right hand; aj 11:29 Follow up: Response: No adverse reaction aj 11:13 Drug: Decadron - Dexamethasone 10 mg Route: IVP; Site: right hand; aj 11:29 Follow up: Response: No adverse reaction aj 11:17 Drug: Phenergan 12.5 mg {Note: Half of intended dose was given as IV infiltrated upon aj administraion. Provider notified, route changed.} Route: IVP; Site: right hand; 12:20 Follow up: Response: No adverse reaction aj 11:35 Drug: Phenergan Suppository 12.5 mg Route: ME; aj 12:20 Follow up: Response: No adverse reaction aj Disposition: 11/25 09:42 Co-signature as Attending Physician, Baljit Rey MD I agree with the assessment and wa plan of care. Disposition: 11/24/18 12:13 Discharged to Home. Impression: Nausea, Chest pain, unspecified, Other chronic pain. - Condition is Stable. - Discharge Instructions: Nonspecific Chest Pain, Chest Wall Pain, Chronic Pain. - Prescriptions for promethazine 25 mg Rectal suppository - insert 1 suppository by RECTAL route every 6 hours; 12 suppository. - Medication Reconciliation Form, Thank You Letter, Antibiotic Education, Prescription Opioid Use form. - Follow up: Private Physician; When: 2 - 3 days; Reason: Recheck today's complaints, Continuance of care, Re-evaluation by your physician. - Problem is new. - Symptoms have improved. Signatures: Dispatcher [employer] EDMS Ike Nicole RN RN sg Myers, Amanda, RN RN aj Roszak, Josh, PA PA jr8 Baljit Rey MD MD wa Corrections: (The following items were deleted from the chart) 11/24 12:25 12:13 11/24/2018 12:13 Discharged to Home. Impression: Nausea; Chest pain, unspecified; aj Other chronic pain. Condition is Stable. Forms are Medication Reconciliation Form, Thank You Letter, Antibiotic Education, Prescription Opioid Use. Follow up: Private Physician; When: 2 - 3 days; Reason: Recheck today's complaints, Continuance of care, Re-evaluation by your physician. Problem is new. Symptoms have improved. jr8
--- NOTE | 2018-11-24 12:13 | ER ---
Nurse's Notes [facility] Name: Maribel Soto Age: 53 yrs Sex: Female : 1965 Arrival Date: 11/24/2018 Time: 09:58 Bed 24 Private MD: Diagnosis: Nausea;Chest pain, unspecified;Other chronic pain Presentation: 11/24 10:18 Presenting complaint: Patient states: Pain to the back of head and neck, reports having sg nausea and vomiting and experiencing palpitations this morning, reports a history of migraines but this pain is much different. Transition of care: patient was not received from another setting of care. Onset of symptoms was November 24, 2018. Risk Assessment: Do you want to hurt yourself or someone else? Patient reports no desire to harm self or others. Initial Sepsis Screen: Does the patient meet any 2 criteria? No. Patient's initial sepsis screen is negative. Does the patient have a suspected source of infection? No. Patient's initial sepsis screen is negative. Care prior to arrival: None. 10:18 Method Of Arrival: Wheelchair sg 10:18 Acuity: LILIAN 3 sg Historical: - Allergies: 10:20 BACLOFEN; sg 10:20 Opana; sg 10:20 PENICILLINS; sg 10:20 Zofran; sg - PMHx: 10:20 Anxiety; Asthma; Chronic pain; Diverticulitis; Fibromyalgia; Bryce; Lupus; sg Migraines; Ulcers; - PSHx: 10:20 abdominal; sg - Immunization history:: Adult Immunizations unknown. - Social history:: Smoking status: Patient/guardian denies using tobacco. - Ebola Screening: : Patient negative for fever greater than or equal to 101.5 degrees Fahrenheit, and additional compatible Ebola Virus Disease symptoms Patient denies exposure to infectious person Patient denies travel to an Ebola-affected area in the 21 days before illness onset No symptoms or risks identified at this time. Screenin:13 Abuse screen: Denies threats or abuse. Denies injuries from another. Nutritional aj screening: No deficits noted. Tuberculosis screening: No symptoms or risk factors identified. Fall Risk None identified. Assessment: 11:13 General: Appears in no apparent distress. comfortable, Behavior is calm, cooperative, aj appropriate for age. Pain: Complains of pain in back of neck. Neuro: Level of Consciousness is awake, alert, obeys commands, Oriented to person, place, time, situation, Appropriate for age. Respiratory: Airway is patent Respiratory effort is even, unlabored, Respiratory pattern is regular, symmetrical. GI: Abdomen is non-distended, obese. Derm: Skin is intact, is healthy with good turgor, Skin is pink, warm \T\ dry. normal. 12:17 Reassessment: Patient appears in no apparent distress at this time. No changes from aj previously documented assessment. Patient and/or family updated on plan of care and expected duration. Pain level reassessed. Patient is alert, oriented x 3, equal unlabored respirations, skin warm/dry/pink. Vital Signs: 10:19 BP 156 / 79; Pulse 92; Resp 17; Temp 97.6; Pulse Ox 100% on R/A; Weight 104.33 kg (R); sg Height 5 ft. 9 in. (175.26 cm); Pain 7/10; 12:13 BP 120 / 70; Pulse 84; Resp 16; Pulse Ox 100% on R/A; aj 10:19 Body Mass Index 33.96 (104.33 kg, 175.26 cm) ED Course: 09:58 Patient arrived in ED. mr 10:11 Federico Francois PA is PHCP. jr8 10:11 Baljit Rey MD is Attending Physician. jr8 10:19 Triage completed. sg 10:44 Inserted saline lock: 24 gauge in right hand, using aseptic technique. Blood collected. aj 10:47 Jaymie Jesus, RN is Primary Nurse. aj 10:52 EKG done, by computer hardware technician. reviewed by Federico PEARL. 3 11:08 X-ray completed. Portable x-ray completed in exam room. Patient tolerated procedure sw well. 11:10 XRAY Chest (1 view) In Process Unspecified. EDMS 11:13 Patient has correct armband on for positive identification. aj 11:15 IV discontinued, IV infiltrated as phenergan was being administered. aj 12:19 No provider procedures requiring assistance completed. aj 12:20 Arm band placed on. aj Administered Medications: 11:13 Drug: TORadol - Ketorolac 15 mg Route: IVP; Site: right hand; aj 11:29 Follow up: Response: No adverse reaction aj 11:13 Drug: Decadron - Dexamethasone 10 mg Route: IVP; Site: right hand; aj 11:29 Follow up: Response: No adverse reaction aj 11:17 Drug: Phenergan 12.5 mg {Note: Half of intended dose was given as IV infiltrated upon aj administraion. Provider notified, route changed.} Route: IVP; Site: right hand; 12:20 Follow up: Response: No adverse reaction aj 11:35 Drug: Phenergan Suppository 12.5 mg Route: CT; aj 12:20 Follow up: Response: No adverse reaction aj Outcome: 12:13 Discharge ordered by MD. connolly 12:19 Discharged to home ambulatory. aj 12:19 Condition: good 12:19 Discharge instructions given to patient, Instructed on discharge instructions, follow up and referral plans. medication usage, Demonstrated understanding of instructions, follow-up care, medications, Prescriptions given X 1. 12:25 Patient left the ED. john Signatures: Dispatcher [employer] EDIke Horton RN RN sg Myers, Amanda, RN RN aj Rivera, Mary mr Federico Francois, Cassie Hastings Shakira 3 Corrections: (The following items were deleted from the chart) 11:13 11:12 Phenergan 12.5 mg IVP in Port-a-cath john lopez
[2018-11-25 19:09] VITALS: BP 120/70; TEMP 97.6; O2SAT 100
== END 2018-11-24 12:25 | disposition home or self-care (01) ==
LOC: ER 09:56
DX: R07.9 Chest pain, unspecified (principal); G89.29 Other chronic pain; Z88.0 Allergy status to penicillin; Z88.1 Allergy status to other antibiotic agents; Z88.8 Allergy status to other drugs, medicaments and biological substances
CPT/HCPCS: 93005; 85025; 80048; 36415; 83735; 85610; 80076; 84484; 83880; 71045; 96375; 96374; 99284; J2550; J1100

== ENCOUNTER 2018-11-29 13:48 | Emergency (ER) | payer OTHER ==
[2018-11-29] MEDS ORDERED: LIDOCAINE 1% MPF 5 ML VIAL ONE (14:40)
--- NOTE | 2018-11-29 15:00 | EDPHYS ---
Physician Documentation [facility] Name: Maribel Soto Age: 53 yrs Sex: Female : 1965 Arrival Date: 11/29/2018 Time: 13:49 Bed 23 Private MD: ED Physician Reece Guadarrama HPI: 11/29 14:56 This 53 yrs old Female presents to ER via Ambulatory with complaints of Thumb ma2 laceration. 14:56 The patient or guardian reports a laceration. The complaints affect the MCP of left ma2 thumb. Onset: The symptoms/episode began/occurred suddenly, 1 hour(s) ago. Associated signs and symptoms: Pertinent negatives: fever, numbness distally, tingling distally. Severity of symptoms: At their worst the symptoms were very mild, in the emergency department the symptoms are unchanged. The patient has experienced similar episodes in the past. 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 - control method hj Historical: - Allergies: 13:52 BACLOFEN; la1 13:52 Opana; la1 13:52 PENICILLINS; la1 13:52 Zofran; la1 - Home Meds: 14:56 BuSpar 100mg Oral three times a day [Active]; fentanyl 50 mcg/hr Topical pt72 1 patch hj every 72 hours [Active]; gabapentin Oral 3 times per day [Active]; lithium carbonate 450 mg Oral TbER 2 tabs nightly [Active]; naratriptan Oral daily [Active]; Phenergan Oral 50 mg every 6 hours [Active]; Seroquel Oral [Active]; sumatriptan succinate 6 mg/0.5 mL Sub-Q syrg as needed [Active]; - PMHx: 13:52 Anxiety; Asthma; Chronic pain; Diverticulitis; Fibromyalgia; Bryce; Lupus; la1 Migraines; Ulcers; - Immunization history:: Last tetanus immunization: > 5 years. - Social history:: Smoking status: Patient/guardian denies using tobacco, Patient/guardian denies using alcohol, street drugs, The patient lives with family. - Ebola Screening: : No symptoms or risks identified at this time. - Family history:: not pertinent. ROS: 14:56 Constitutional: Negative for fever, chills, and weight loss. ma2 14:56 All other systems are negative. Exam: 14:56 Constitutional: This is a well developed, well nourished patient who is awake, alert, ma2 and in no acute distress. Back: No spinal tenderness. No costovertebral tenderness. Full range of motion. Skin: left thumb anterior laceration superficial linear and 1 cm long, otherwise skin Warm, dry with normal turgor. Normal color with no rashes, no lesions, and no evidence of cellulitis. MS/ Extremity: Pulses equal, no cyanosis. Neurovascular intact. Full, normal range of motion. Neuro: Awake and alert, GCS 15, oriented to person, place, time, and situation. Cranial nerves II-XII grossly intact. Motor strength 5/5 in all extremities. Sensory grossly intact. Cerebellar exam normal. Normal gait. Vital Signs: 13:52 Pulse 88; Resp 16; Temp 97.5; Pulse Ox 98% on R/A; Weight 104.33 kg; Height 5 ft. 8 in. la1 (172.72 cm); 13:54 BP 132 / 73; la1 15:04 BP 130 / 72; Pulse 87; Resp 18; Pulse Ox 100% on R/A; hj 13:52 Body Mass Index 34.97 (104.33 kg, 172.72 cm) la1 Laceration: 14:56 Wound Repair of 1cm ( 0.4in ) subcutaneous laceration to left hand. Linear shaped.. ma2 Distal neuro/vascular/tendon intact. Anesthesia: Local anesthetic administered with 5 mls of 1% lidocaine. Wound prep: Moderate cleansing. Skin closed with 1 2-0 Prolene using simple sutures and sterile technique. Skin closed with 1 2-0 Prolene. Dressed with Bacitracin. MDM: 13:54 Patient medically screened. ma2 14:56 Differential diagnosis: abrasion, tendonitis, laceration. Data reviewed: vital signs, ma2 nurses notes, lab test result(s). Counseling: I had a detailed discussion with the patient and/or guardian regarding: the historical points, exam findings, and any diagnostic results supporting the discharge/admit diagnosis, the presence of at least one elevated blood pressure reading (>120/80) during this emergency department visit, the need for outpatient follow up. Response to treatment: the patient's symptoms have resolved after treatment. 11/29 14:42 Order name: Prolene, Sutures; Complete Time: 14:43 11/29 14:42 Order name: Dressing - Wound; Complete Time: 14:43 11/29 14:42 Order name: Gloves, Sterile; Complete Time: 14:43 11/29 14:42 Order name: Setup Suture Tray; Complete Time: 14:43 Administered Medications: 14:43 Drug: Lidocaine (1 %) 5 mg Volume: 5 ml; Route: Infiltration; Disposition: 11/29/18 15:00 Discharged to Home. Impression: Laceration without foreign body of left hand. - Condition is Stable. - Discharge Instructions: Laceration Care, Adult. - Prescriptions for Bactrim DS 800- 160 mg Oral Tablet - take 1 tablet by ORAL route every 12 hours for 3 days; 6 tablet. - Medication Reconciliation Form, Thank You Letter, Antibiotic Education, Prescription Opioid Use form. - Follow up: Private Physician; When: Tomorrow; Reason: Continuance of care. Signatures: Bryan Smith RN RN la1 Art Garland RN RN Reece Guadarrama MD MD ma2 Corrections: (The following items were deleted from the chart) 15:08 15:00 11/29/2018 15:00 Discharged to Home. Impression: Laceration without foreign body hj of left hand. Condition is Stable. Forms are Medication Reconciliation Form, Thank You Letter, Antibiotic Education, Prescription Opioid Use. Follow up: Private Physician; When: Tomorrow; Reason: Continuance of care. ma2
--- NOTE | 2018-11-29 15:00 | ER ---
Nurse's Notes [facility] Name: Maribel Soto Age: 53 yrs Sex: Female : 1965 Arrival Date: 11/29/2018 Time: 13:49 Bed 23 Private MD: Diagnosis: Laceration without foreign body of left hand Presentation: 11/29 13:52 Presenting complaint: Patient states: I cut my left thumb with a kitchen knife about la1 one hour ago. Transition of care: patient was not received from another setting of care. Onset of symptoms was November 29, 2018. Risk Assessment: Do you want to hurt yourself or someone else? Patient reports no desire to harm self or others. Initial Sepsis Screen: Does the patient meet any 2 criteria? No. Patient's initial sepsis screen is negative. Does the patient have a suspected source of infection? No. Patient's initial sepsis screen is negative. Care prior to arrival: None. 13:52 Method Of Arrival: Ambulatory la1 13:52 Acuity: LILIAN 4 la1 Triage Assessment: 14:14 General: Appears in no apparent distress. uncomfortable, Behavior is calm, cooperative, hj appropriate for age. Pain: Complains of pain in chest. 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 hj Historical: - Allergies: 13:52 BACLOFEN; la1 13:52 Opana; la1 13:52 PENICILLINS; la1 13:52 Zofran; la1 - Home Meds: 14:56 BuSpar 100mg Oral three times a day [Active]; fentanyl 50 mcg/hr Topical pt72 1 patch hj every 72 hours [Active]; gabapentin Oral 3 times per day [Active]; lithium carbonate 450 mg Oral TbER 2 tabs nightly [Active]; naratriptan Oral daily [Active]; Phenergan Oral 50 mg every 6 hours [Active]; Seroquel Oral [Active]; sumatriptan succinate 6 mg/0.5 mL Sub-Q syrg as needed [Active]; - PMHx: 13:52 Anxiety; Asthma; Chronic pain; Diverticulitis; Fibromyalgia; Bryce; Lupus; la1 Migraines; Ulcers; - Immunization history:: Last tetanus immunization: > 5 years. - Social history:: Smoking status: Patient/guardian denies using tobacco, Patient/guardian denies using alcohol, street drugs, The patient lives with family. - Ebola Screening: : No symptoms or risks identified at this time. - Family history:: not pertinent. Screenin:52 Abuse screen: Denies threats or abuse. Denies injuries from another. Nutritional hj screening: No deficits noted. Tuberculosis screening: No symptoms or risk factors identified. Fall Risk None identified. Assessment: 15:07 General: Appears in no apparent distress. uncomfortable, Behavior is calm, cooperative, hj appropriate for age. Pain: Complains of pain in MCP of left thumb and chest. Neuro: Level of Consciousness is awake, alert, obeys commands, Oriented to person, place, time, situation, Appropriate for age. Cardiovascular: Capillary refill < 3 seconds Patient's skin is warm and dry. Respiratory: Airway is patent Respiratory effort is even, unlabored, Respiratory pattern is regular, symmetrical. GI: No signs and/or symptoms were reported involving the gastrointestinal system. : No signs and/or symptoms were reported regarding the genitourinary system. EENT: No signs and/or symptoms were reported regarding the EENT system. Derm: Wound noted MCP of left thumb. Musculoskeletal: No signs and/or symptoms reported regarding the musculoskeletal system. Vital Signs: 13:52 Pulse 88; Resp 16; Temp 97.5; Pulse Ox 98% on R/A; Weight 104.33 kg; Height 5 ft. 8 in. la1 (172.72 cm); 13:54 BP 132 / 73; la1 15:04 BP 130 / 72; Pulse 87; Resp 18; Pulse Ox 100% on R/A; hj 13:52 Body Mass Index 34.97 (104.33 kg, 172.72 cm) la1 ED Course: 13:49 Patient arrived in ED. mr 13:52 Triage completed. la1 13:52 Arm band placed on left wrist. la1 13:52 Patient has correct armband on for positive identification. Placed in gown. Bed in low hj position. Call light in reach. Side rails up X 1. Adult w/ patient. 13:54 Reece Guadarrama MD is Attending Physician. ma2 13:59 Art Garland, JAYDEN is Primary Nurse. hj 15:04 No provider procedures requiring assistance completed. Patient did not have IV access hj during this emergency room visit. Administered Medications: 14:43 Drug: Lidocaine (1 %) 5 mg Volume: 5 ml; Route: Infiltration; Outcome: 15:00 Discharge ordered by . sharonda 15:05 Discharged to home ambulatory. 15:05 Condition: stable 15:05 Discharge instructions given to patient, Instructed on discharge instructions, follow up and referral plans. Demonstrated understanding of instructions, follow-up care. 15:08 Patient left the ED. fabien Signatures: Snow Schreiber Lee RN RN la1 Art Garland RN RN hj Alzahri, Mohammad, MD MD ma2
[2018-11-29 15:44] VITALS: TEMP 97.5
[2018-11-29 15:47] VITALS: BP 130/72; O2SAT 100
== END 2018-11-29 15:08 | disposition home or self-care (01) ==
LOC: ER 13:48
PROC: 0JQK0ZZ Repair Left Hand Subcutaneous Tissue and Fascia, Open Approach (ICD-10-PCS; principal; 2018-11-29)
DX: S61.012A Laceration without foreign body of left thumb without damage to nail, initial encounter (principal); F41.9 Anxiety disorder, unspecified; J45.909 Unspecified asthma, uncomplicated; E06.3 Autoimmune thyroiditis; Z88.1 Allergy status to other antibiotic agents; Z88.0 Allergy status to penicillin
CPT/HCPCS: 99283

== ENCOUNTER 2018-12-02 14:09 | Emergency (ER) | payer OTHER ==
--- NOTE | 2018-12-02 16:05 | RAD REPORT ---
EXAM DESCRIPTION: CT - Head C Spine Mpr Wo Con - 12/02/2018 3:42 pm CLINICAL HISTORY: Seizure. Head and neck injury status post fall. Head and neck pain COMPARISON: 2011 and 2015 TECHNIQUE: Computed axial tomography of the head and cervical spine was obtained. Sagittal and coronal reconstruction was performed. All CT scans are performed using dose optimization technique as appropriate and may include automated exposure control or mA/KV adjustment according to patient size. FINDINGS: An intracranial bleed is not seen. The ventricles are normal in caliber. An extra-axial fl uid collection is not noted.Fluid within the visualized sinuses and mastoids is not seen Some images are degraded by patient motion artifact A cervical fracture is not visualized. No dislocation is noted. IMPRESSION: No acute intracranial abnormality is seen. Some of the images are degraded by patient motion artifact. A cervical fracture is not seen. If the patient continues to have symptoms to suggest intracranial /s ofelia cord pathology then MRI would be recommended
[2018-12-02] MEDS ORDERED: PROMETHAZINE 25 MG/ML VIAL ONE (16:28)
[2018-12-02] MEDS ORDERED: ACETAMINOPHEN 500 MG TAB ONE (16:29)
[2018-12-02 16:38] LABS: Potassium 4.1 mmol/L (3.5-5.1)
--- NOTE | 2018-12-02 17:07 | EDPHYS ---
Physician Documentation [facility] Name: Maribel Soto Age: 53 yrs Sex: Female : 1965 Arrival Date: 12/02/2018 Time: 14:15 Bed 26 Private MD: ED Physician Bakari Fairchild HPI: 12/02 15:20 This 53 yrs old Female presents to ER via EMS with complaints of Tremor, Fall kb Injury. 15:20 The patient presents after having a single isolated seizure. Character of seizure(s): kb Loss of consciousness: the patient experienced loss of consciousness, Motor activity: generalized, shaking all over. Seizure onset: just prior to arrival. Context: the seizure(s) was witnessed, by a friend, occurred at home, occurred while the patient was walking, Contributing factors: sleep deprivation. Seizure Hx: Original onset: longstanding, Last seizure: The patient's last seizure was approximately 1 month(s) ago. Associated injury: Neck: pain. Current symptoms: Currently, the patient is not experiencing any symptoms, the patient feels back to baseline, no decreased level of consciousness, no confusion, no dysphasia, no headache, no paralysis, no visual changes. The patient has experienced similar episodes in the past, multiple times. The patient has not recently seen a physician. 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 States she was walking outside and fell to the ground. Reports headache and neck pain. States she does not take anything for seizures because she is still going through testing to find the cause of them. Has history of tremors as well. STates she has been moving and hasn't slept in a couple of days so that is what caused this one. Last seizure was a month ago. . 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 - Social history:: Smoking status: Patient/guardian denies using tobacco. - Ebola Screening: : Patient negative for fever greater than or equal to 101.5 degrees Fahrenheit, and additional compatible Ebola Virus Disease symptoms Patient denies exposure to infectious person Patient denies travel to an Ebola-affected area in the 21 days before illness onset No symptoms or risks identified at this time. ROS: 15:18 Constitutional: Negative for fever, chills, and weight loss, ENT: Negative for injury, kb pain, and discharge, Cardiovascular: Negative for chest pain, palpitations, and edema, Respiratory: Negative for shortness of breath, cough, wheezing, and pleuritic chest pain, Abdomen/GI: Negative for abdominal pain, nausea, vomiting, diarrhea, and constipation, MS/Extremity: Negative for injury and deformity, Skin: Negative for injury, rash, and discoloration. 15:18 Neck: Positive for pain with movement, pain at rest. 15:18 Neuro: Positive for headache, seizure activity. Exam: 15:19 Constitutional: This is a well developed, well nourished patient who is awake, alert, kb and in no acute distress. Head/Face: Normocephalic, atraumatic. Eyes: Pupils equal round and reactive to light, extra-ocular motions intact. Lids and lashes normal. Conjunctiva and sclera are non-icteric and not injected. Cornea within normal limits. Periorbital areas with no swelling, redness, or edema. ENT: Nares patent. No nasal discharge, no septal abnormalities noted. Tympanic membranes are normal and external auditory canals are clear. Oropharynx with no redness, swelling, or masses, exudates, or evidence of obstruction, uvula midline. Mucous membranes moist. Neck: Trachea midline, no thyromegaly or masses palpated, and no cervical lymphadenopathy. Supple, full range of motion without nuchal rigidity, or vertebral point tenderness. No Meningismus. Chest/axilla: Normal chest wall appearance and motion. Nontender with no deformity. No lesions are appreciated. Cardiovascular: Regular rate and rhythm with a normal S1 and S2. No gallops, murmurs, or rubs. Normal PMI, no JVD. No pulse deficits. Respiratory: Lungs have equal breath sounds bilaterally, clear to auscultation and percussion. No rales, rhonchi or wheezes noted. No increased work of breathing, no retractions or nasal flaring. Abdomen/GI: Soft, non-tender, with normal bowel sounds. No distension or tympany. No guarding or rebound. No evidence of tenderness throughout. Skin: Warm, dry with normal turgor. Normal color with no rashes, no lesions, and no evidence of cellulitis. MS/ Extremity: Pulses equal, no cyanosis. Neurovascular intact. Full, normal range of motion. Neuro: Awake and alert, GCS 15, oriented to person, place, time, and situation. Cranial nerves II-XII grossly intact. Motor strength 5/5 in all extremities. Sensory grossly intact. Cerebellar exam normal. Normal gait. 15:19 Neuro: Vital Signs: 14:12 BP 119 / 89 RA (auto/reg); Pulse 88; Resp 18 S; Temp 98.3; Pulse Ox 100% ; Weight jp3 108.86 kg (R); Height 5 ft. 9 in. (175.26 cm) (R); Pain 8/10; 14:12 Body Mass Index 35.44 (108.86 kg, 175.26 cm) jp3 MDM: 14:56 Patient medically screened. kb 15:18 Data reviewed: vital signs, nurses notes. Data interpreted: Pulse oximetry: on room air kb is 100 %. Interpretation: normal. 16:50 Counseling: I had a detailed discussion with the patient and/or guardian regarding: the kb historical points, exam findings, and any diagnostic results supporting the discharge/admit diagnosis, lab results, radiology results, the need for outpatient follow up, a neurologist, to return to the emergency department if symptoms worsen or persist or if there are any questions or concerns that arise at home. 12/02 15:09 Order name: Basic Metabolic Panel; Complete Time: 16:45 kb 12/02 15:09 Order name: CT Head C Spine; Complete Time: 16:45 kb 12/02 15:09 Order name: IV Start; Complete Time: 16:14 kb Administered Medications: 16:19 Drug: Phenergan 12.5 mg Route: IVP; Site: left wrist; 16:20 Drug: Tylenol 1000 mg Route: PO; wh Disposition: 12/03 07:31 Co-signature as Attending Physician, Bakari Fairchild MD I agree with the assessment and kdr plan of care. Disposition: 12/02/18 16:53 Discharged to Home. Impression: Epilepsy and recurrent seizures. - Condition is Stable. - Discharge Instructions: Seizure, Adult, [id number]. - Medication Reconciliation Form, Thank You Letter, Antibiotic Education, Prescription Opioid Use form. - Follow up: Emergency Department; When: As needed; Reason: Worsening of condition. Follow up: Private Physician; When: 2 - 3 days; Reason: Recheck today's complaints, Continuance of care, Re-evaluation by your physician. Signatures: Dispatcher [employer] EDMS Nydia Wylie, CELL BIOLOGY SCIENTIST-C CELL BIOLOGY SCIENTIST-Ckb Bakari Fairchild MD MD kdr Williams, Irene, RN RN iw Ashok Bravo Corrections: (The following items were deleted from the chart) 12/02 17:13 16:53 12/02/2018 16:53 Discharged to Home. Impression: Epilepsy and recurrent seizures. iw Condition is Stable. Forms are Medication Reconciliation Form, Thank You Letter, Antibiotic Education, Prescription Opioid Use. Follow up: Emergency Department; When: As needed; Reason: Worsening of condition. Follow up: Private Physician; When: 2 - 3 days; Reason: Recheck today's complaints, Continuance of care, Re-evaluation by your physician. kb
--- NOTE | 2018-12-02 17:07 | ER ---
Nurse's Notes [facility] Name: Maribel Soto Age: 53 yrs Sex: Female : 1965 Arrival Date: 12/02/2018 Time: 14:15 Bed 26 Private MD: Diagnosis: Epilepsy and recurrent seizures Presentation: 12/02 14:16 Presenting complaint: EMS states: pt has hx of tremors, seizures, had some seizure like iw activity, fell from standing, EMS reports pt had no postictal period on scene, pt c/o headache, doesn't remember falling, pt A\T\O3, has been off her lithium and Seroquel for 3 months, hx of fibromyalgia, lupus, chronic migraines, pt states she has not been feeling well recently and has had increase headaches, also was moving out of her home today. Care prior to arrival: None. Mechanism of Injury: Fall. 14:16 Acuity: LILIAN 3 iw 14:16 Method Of Arrival: EMS: [facility] iw 14:18 Transition of care: patient was not received from another setting of care. Onset of iw symptoms was December 02, 2018. Risk Assessment: Do you want to hurt yourself or someone else? Patient reports no desire to harm self or others. Initial Sepsis Screen: Does the patient meet any 2 criteria? No. Patient's initial sepsis screen is negative. Does the patient have a suspected source of infection? No. Patient's initial sepsis screen is negative. Triage Assessment: 14:30 General: Appears in no apparent distress. Behavior is agitated, anxious. 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 - Social history:: Smoking status: Patient/guardian denies using tobacco. - Ebola Screening: : Patient negative for fever greater than or equal to 101.5 degrees Fahrenheit, and additional compatible Ebola Virus Disease symptoms Patient denies exposure to infectious person Patient denies travel to an Ebola-affected area in the 21 days before illness onset No symptoms or risks identified at this time. Screenin:00 Abuse screen: Denies threats or abuse. Denies injuries from another. Nutritional iw screening: No deficits noted. Tuberculosis screening: No symptoms or risk factors identified. Fall Risk Fall in past 12 months (25 points). Assessment: 14:30 General: Appears in no apparent distress. Behavior is cooperative, anxious. Pain: iw Complains of pain in face and neck Pain currently is 9 out of 10 on a pain scale. Neuro: Level of Consciousness is awake, alert, obeys commands, Oriented to person, place, time, situation, Moves all extremities. Reports dizziness, headache. Neuro: tremors noted in all 4 extremities. Cardiovascular: Patient's skin is warm and dry. Respiratory: Respiratory effort is even, unlabored, Respiratory pattern is regular. GI: No signs and/or symptoms were reported involving the gastrointestinal system. Abdomen is flat. Derm: Skin is intact, is healthy with good turgor. Musculoskeletal: Range of motion: intact in all extremities. 15:30 Reassessment: Patient appears in no apparent distress at this time. No changes from iw previously documented assessment. Patient and/or family updated on plan of care and expected duration. Pain level reassessed. Patient is alert, oriented x 3, equal unlabored respirations, skin warm/dry/pink. Vital Signs: 14:12 BP 119 / 89 RA (auto/reg); Pulse 88; Resp 18 S; Temp 98.3; Pulse Ox 100% ; Weight jp3 108.86 kg (R); Height 5 ft. 9 in. (175.26 cm) (R); Pain 8/10; 14:12 Body Mass Index 35.44 (108.86 kg, 175.26 cm) jp3 ED Course: 14:10 Patient has correct armband on for positive identification. Bed in low position. Call 3 light in reach. Side rails up X 1. Side rails up X2. Seizure precautions initiated. Warm blanket given. Verbal reassurance given. 14:10 Pulse ox on. NIBP on. jp3 14:15 Patient arrived in ED. iw 14:20 Arm band placed on. iw 14:21 Patient maintains SpO2 saturation greater than 95% on room air. jp3 14:23 Triage completed. iw 14:30 Hina Torrez, RN is Primary Nurse. iw 14:56 Nydia Wylie FNP-C is [facility]. kb 14:56 Bakari Fairchild MD is Attending Physician. kb 16:00 Initial lab(s) drawn, by me, sent to lab. Inserted saline lock: 24 gauge in right hand, iw using aseptic technique. 16:07 CT Head C Spine In Process Unspecified. EDMS 16:14 Basic Metabolic Panel Sent. wh 17:10 No provider procedures requiring assistance completed. IV discontinued, intact, iw bleeding controlled, No redness/swelling at site. Pressure dressing applied. Administered Medications: 16:19 Drug: Phenergan 12.5 mg Route: IVP; Site: left wrist; 16:20 Drug: Tylenol 1000 mg Route: PO; Outcome: 16:53 Discharge ordered by . kb 17:12 Discharged to home via wheelchair, with friend. iw 17:12 Condition: good 17:12 Discharge instructions given to patient, Instructed on discharge instructions, follow up and referral plans. Demonstrated understanding of instructions, follow-up care. 17:13 Patient left the ED. iw Signatures: Dispatcher [employer] EDMS Nydia Wylie FNP-C FNP-Hina Ang, RN RN Ashok Boone Jacob jp3
[2018-12-02 17:26] VITALS: BP 119/89; TEMP 98.3; O2SAT 100
== END 2018-12-02 17:13 | disposition home or self-care (01) ==
LOC: ER 14:09
DX: G40.802 Other epilepsy, not intractable, without status epilepticus (principal); Z88.0 Allergy status to penicillin; Z88.1 Allergy status to other antibiotic agents; Z88.8 Allergy status to other drugs, medicaments and biological substances
CPT/HCPCS: 80048; 36415; 70450; 72125; 96374; 99284; J2550

== ENCOUNTER 2018-12-26 12:31 | Emergency (ER) | payer OTHER ==
[2018-12-26 13:47] LABS: Absolute Lymphocytes (CBC) 1.3 K/uL (0.7-4.9); Basophils % 0.8 % (0-1.3); Hematocrit 38.4 % (36.0-45.0); Lymphocytes % 31.4 % (15.3-44.8); MPV 7.6 fL (7.6-11.3); RBC Red Blood Cell Count 4.56 M/uL (3.86-4.86)
[2018-12-26 13:55] LABS: Potassium 4.1 mmol/L (3.5-5.1)
[2018-12-26 13:57] LABS: Barbiturates NEGATIVE (NEGATIVE); Benzodiazepines NEGATIVE (NEGATIVE); Cocaine NEGATIVE (NEGATIVE); METHAMPHETAM NEGATIVE (NEGATIVE); Methadone NEGATIVE (NEGATIVE); Opiates POSITIVE (NEGATIVE); Phencyclidine NEGATIVE (NEGATIVE); THC Cannibis NEGATIVE (NEGATIVE)
[2018-12-26 14:17] LABS: Urine Blood NEGATIVE (NEG); Urine Glucose NEGATIVE (NEG); Urine Protein NEGATIVE (NEG); Urine pH 5.5 (5.0-7.0)
--- NOTE | 2018-12-26 15:10 | ER ---
Nurse's Notes 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 Patient aj fell and hit right occipital area on carpet. Patient had witnessed "seizure activity by EMS which patient was speaking and conscious during the event. Patient reports neck and head pain. Transition of care: patient was not received from another setting of care. Onset of symptoms was December 26, 2018. Risk Assessment: Do you want to hurt yourself or someone else? Patient reports no desire to harm self or others. Initial Sepsis Screen: Does the patient meet any 2 criteria? No. Patient's initial sepsis screen is negative. Does the patient have a suspected source of infection? No. Patient's initial sepsis screen is negative. Care prior to arrival: None. 12:33 Method Of Arrival: EMS: [facility] 12:33 Acuity: LILIAN 3 aj Triage Assessment: 12:37 General: Appears in no apparent distress. comfortable, Behavior is calm, cooperative, aj appropriate for age. Pain: Complains of pain in back of head and back of neck. Neuro: Level of Consciousness is awake, alert, obeys commands, Oriented to person, place, time, situation, Appropriate for age. Respiratory: Airway is patent Respiratory effort is even, unlabored, Respiratory pattern is regular, symmetrical. Derm: Skin is intact, is healthy with good turgor, Skin is pink, warm \\T\\ dry. normal. Historical: - Allergies: 12:37 BACLOFEN; aj 12:37 Opana; aj 12:37 PENICILLINS; aj 12:37 Zofran; aj 12:37 Bactrim; aj - Home Meds: 12:37 BuSpar 100mg Oral three times a day [Active]; fentanyl 50 mcg/hr Topical pt72 1 patch aj every 72 hours [Active]; gabapentin Oral 3 times per day [Active]; lithium carbonate 450 mg Oral TbER 2 tabs nightly [Active]; naratriptan Oral daily [Active]; Phenergan Oral 50 mg every 6 hours [Active]; Seroquel Oral [Active]; sumatriptan succinate 6 mg/0.5 mL Sub-Q syrg as needed [Active]; - PMHx: 12:37 Anxiety; Asthma; Chronic pain; Diverticulitis; Fibromyalgia; Bryce; Migraines; aj Lupus; Ulcers; - Immunization history:: Adult Immunizations up to date. - Social history:: Smoking status: Patient/guardian denies using tobacco. - Ebola Screening: : Patient negative for fever greater than or equal to 101.5 degrees Fahrenheit, and additional compatible Ebola Virus Disease symptoms Patient denies exposure to infectious person Patient denies travel to an Ebola-affected area in the 21 days before illness onset No symptoms or risks identified at this time. - Family history:: not pertinent. - Hospitalizations: : No recent hospitalization is reported. Screenin:34 Abuse screen: Denies threats or abuse. Denies injuries from another. Nutritional aj screening: No deficits noted. Tuberculosis screening: No symptoms or risk factors identified. Fall Risk None identified. Assessment: 13:34 Reassessment: Patient appears in no apparent distress at this time. No changes from aj previously documented assessment. Patient and/or family updated on plan of care and expected duration. Pain level reassessed. Patient is alert, oriented x 3, equal unlabored respirations, skin warm/dry/pink. 14:49 Reassessment: ALL CURRENT ORDERS COMPLETED, DISPO PENDING. bp Vital Signs: 12:37 BP 125 / 81; Pulse 74; Resp 14; Temp 97.5; Pulse Ox 100% on R/A; Weight 108.86 kg; aj Height 5 ft. 9 in. (175.26 cm); 13:34 BP 112 / 76; Pulse 70; Resp 18; Pulse Ox 98% on R/A; aj 14:48 BP 130 / 98; Pulse 81; Resp 24; Temp 97.5; Pulse Ox 98% ; bp 15:30 BP 124 / 81; Pulse 74; Resp 17; Pulse Ox 99% on R/A; aj 12:37 Body Mass Index 35.44 (108.86 kg, 175.26 cm) aj [place] Coma Score: 12:37 Eye Response: spontaneous(4). Verbal Response: oriented(5). Motor Response: obeys aj commands(6). Total: 15. ED Course: 12:33 Patient arrived in ED. aj 12:33 Kavon Mack MD is Attending Physician. rn 12:36 Triage completed. aj 12:37 Arm band placed on right wrist. Patient placed in an exam room, on a stretcher. aj 12:40 Jaymie Jesus RN is Primary Nurse. aj 13:34 Patient has correct armband on for positive identification. aj 15:30 No provider procedures requiring assistance completed. Patient did not have IV access aj during this emergency room visit. Administered Medications: No medications were administered Outcome: 15:09 Discharge ordered by . rn 15:30 Discharged to home via wheelchair, with family. aj 15:30 Condition: good 15:30 Discharge instructions given to patient, Instructed on discharge instructions, follow up and referral plans. Demonstrated understanding of instructions, follow-up care. 15:30 Patient left the ED. aj Signatures: Jaymie Jesus, RN RN Kavon Lake MD MD rn Peltier, Brian, RN RN bp Corrections: (The following items were deleted from the chart) 14:50 14:48 BP 130 / 98; Pulse 81bpm; Resp 24bpm; Pulse Ox 98%; bp bp
--- NOTE | 2018-12-26 15:10 | EDPHYS ---
Physician Documentation [facility] Name: Maribel Soto Age: 53 yrs Sex: Female : 1965 Arrival Date: 12/26/2018 Time: 12:33 Bed 8 Private MD: ED Physician Kavon aMck HPI: 12/26 14:08 This 53 yrs old Female presents to ER via EMS with complaints of Probable rn Seizure. 14:08 The patient presents after having a possible seizure episode. Character of seizure(s): rn Motor activity: generalized, Incontinence: none, Apnea: the patient did not experience apnea. Seizure onset: today. Associated injury: The patient did not suffer any apparent associated injury. Current symptoms: Currently, the patient is not experiencing any symptoms. The patient has experienced similar episodes in the past. The patient has been recently seen at the [facility] Emergency Department. Reports possible seizure today, is aware of them coming on, reports sees Dr. Ge for neurology, not on meds because unable to characterize type of seizure. Reports has tremors at baseline, no trauma, no chest pain/sob/abd pain. No fever. Reports seen here recently for this and told everything looked ok. Reports increase in frequency and began about a year ago. . Historical: - Allergies: 12:37 BACLOFEN; aj 12:37 Opana; aj 12:37 PENICILLINS; aj 12:37 Zofran; aj 12:37 Bactrim; aj - Home Meds: 12:37 BuSpar 100mg Oral three times a day [Active]; fentanyl 50 mcg/hr Topical pt72 1 patch aj every 72 hours [Active]; gabapentin Oral 3 times per day [Active]; lithium carbonate 450 mg Oral TbER 2 tabs nightly [Active]; naratriptan Oral daily [Active]; Phenergan Oral 50 mg every 6 hours [Active]; Seroquel Oral [Active]; sumatriptan succinate 6 mg/0.5 mL Sub-Q syrg as needed [Active]; - PMHx: 12:37 Anxiety; Asthma; Chronic pain; Diverticulitis; Fibromyalgia; Bryce; Migraines; aj Lupus; Ulcers; - Immunization history:: Adult Immunizations up to date. - Social history:: Smoking status: Patient/guardian denies using tobacco. - Ebola Screening: : Patient negative for fever greater than or equal to 101.5 degrees Fahrenheit, and additional compatible Ebola Virus Disease symptoms Patient denies exposure to infectious person Patient denies travel to an Ebola-affected area in the 21 days before illness onset No symptoms or risks identified at this time. - Family history:: not pertinent. - Hospitalizations: : No recent hospitalization is reported. ROS: 14:08 Constitutional: Negative for fever, chills, and weight loss, Eyes: Negative for injury, rn pain, redness, and discharge, Neck: Negative for injury, pain, and swelling, Cardiovascular: Negative for chest pain, palpitations, and edema, Respiratory: Negative for shortness of breath, cough, wheezing, and pleuritic chest pain, Abdomen/GI: Negative for abdominal pain, nausea, vomiting, diarrhea, and constipation, MS/Extremity: Negative for injury and deformity, Skin: Negative for injury, rash, and discoloration, Neuro: Negative for headache, weakness, numbness, tingling Exam: 14:08 Constitutional: This is a well developed, well nourished patient who is awake, alert, rn and in no acute distress. Head/Face: Normocephalic, atraumatic. Eyes: Pupils equal round and reactive to light, extra-ocular motions intact. Lids and lashes normal. Conjunctiva and sclera are non-icteric and not injected. Cornea within normal limits. Periorbital areas with no swelling, redness, or edema. ENT: MMM Cardiovascular: Regular rate and rhythm. No pulse deficits. Respiratory: Lungs have equal breath sounds bilaterally, clear to auscultation. No increased work of breathing, no retractions or nasal flaring. Abdomen/GI: soft, non-tender MS/ Extremity: Pulses equal, no cyanosis. Neurovascular intact. Full, normal range of motion. Equal circumference. Neuro: Awake and alert, GCS 15, oriented to person, place, time, and situation. Cranial nerves II-XII grossly intact. Motor strength 5/5 in all extremities. Sensory grossly intact. Vital Signs: 12:37 BP 125 / 81; Pulse 74; Resp 14; Temp 97.5; Pulse Ox 100% on R/A; Weight 108.86 kg; aj Height 5 ft. 9 in. (175.26 cm); 13:34 BP 112 / 76; Pulse 70; Resp 18; Pulse Ox 98% on R/A; aj 14:48 BP 130 / 98; Pulse 81; Resp 24; Temp 97.5; Pulse Ox 98% ; bp 15:30 BP 124 / 81; Pulse 74; Resp 17; Pulse Ox 99% on R/A; aj 12:37 Body Mass Index 35.44 (108.86 kg, 175.26 cm) aj [place] Coma Score: 12:37 Eye Response: spontaneous(4). Verbal Response: oriented(5). Motor Response: obeys aj commands(6). Total: 15. MDM: 12:34 Patient medically screened. rn 15:08 Differential diagnosis: drug overdose, cardiac arrhythmia, seizure. Data reviewed: rn vital signs, nurses notes, old medical records, lab test result(s), EKG, and as a result, I will discharge patient. Counseling: I had a detailed discussion with the patient and/or guardian regarding: the historical points, exam findings, and any diagnostic results supporting the discharge/admit diagnosis, lab results, the need for outpatient follow up, to return to the emergency department if symptoms worsen or persist or if there are any questions or concerns that arise at home. Response to treatment: the patient's symptoms have resolved after treatment, and as a result, I will discharge patient. Special discussion: I discussed with the patient/guardian in detail that at this point there is no indication for admission to the hospital. It is understood, however, that if the symptoms persist or worsen the patient needs to return immediately for re-evaluation. Based on the history and exam findings, there is no indication for further emergent testing or inpatient evaluation. I discussed with the patient/guardian the need to see the neurologist for further evaluation of the symptoms. ED course: NO acute findings, will dc home with neuro f/u. . 12/26 12:44 Order name: CBC with Diff; Complete Time: 15: rn 12/26 12:44 Order name: Basic Metabolic Panel; Complete Time: 15: rn 12/26 12:44 Order name: EKG; Complete Time: 12:44 rn 12/26 12:44 Order name: Urine Drug Screen; Complete Time: 15: rn 12/26 13:46 Order name: Urine Dipstick--Ancillary (enter results); Complete Time: 15: eb 12/26 13:46 Order name: Urine --Ancillary (enter results); Complete Time: 15:07 eb 12/26 12:44 Order name: EKG - Nurse/Tech; Complete Time: 13:37 rn 12/26 12:44 Order name: Urine Dipstick-Ancillary (obtain specimen); Complete Time: 13:28 rn Administered Medications: No medications were administered Disposition: 12/26/18 15:09 Discharged to Home. Impression: Epilepsy and recurrent seizures. - Condition is Stable. - Discharge Instructions: Seizure, Adult. - Medication Reconciliation Form, Thank You Letter, Antibiotic Education, Prescription Opioid Use form. - Follow up: Private Physician; When: As needed; Reason: Recheck today's complaints, Re-evaluation by your physician. - Problem is an ongoing problem. - Symptoms have improved. Signatures: Dispatcher [employer] Jaymie Bowman RN RN Kavon Lake MD MD hydrogen braze furnace operator: (The following items were deleted from the chart) 15:30 15:09 12/26/2018 15:09 Discharged to Home. Impression: Epilepsy and recurrent seizures. aj Condition is Stable. Forms are Medication Reconciliation Form, Thank You Letter, Antibiotic Education, Prescription Opioid Use. Follow up: Private Physician; When: As needed; Reason: Recheck today's complaints, Re-evaluation by your physician. Problem is an ongoing problem. Symptoms have improved. rn
[2018-12-26 15:35] VITALS: TEMP 97.5
[2018-12-26 15:39] VITALS: BP 124/81; O2SAT 99
--- NOTE | 2018-12-28 07:47 | EKG ---
Test Date: 2018-12-26 Test Time: 12:48:35 Distribution System Operator: BILL MEASUREMENT RESULTS: Intervals: Rate: 68 CT: 212 QRSD: 90 QT: 420 QTc: 446 Silas: P: 41 CT: 212 QRS: 15 T: 16 INTERPRETIVE STATEMENTS: Sinus rhythm with 1st degree AV block Otherwise normal ECG Compared to ECG 11/24/2018 10:34:03 First degree AV block now present Electronically Signed On 12-28-18 07:45:30 CDT by Tono Granados
== END 2018-12-26 15:30 | disposition home or self-care (01) ==
LOC: ER 12:31
DX: G40.802 Other epilepsy, not intractable, without status epilepticus (principal); F41.9 Anxiety disorder, unspecified; J45.909 Unspecified asthma, uncomplicated; Z88.0 Allergy status to penicillin; Z88.1 Allergy status to other antibiotic agents; Z88.8 Allergy status to other drugs, medicaments and biological substances
CPT/HCPCS: 36415; 80048; 80307; 81003; 81025; 85025; 93005; 99283

== ENCOUNTER 2019-03-24 11:48 | Emergency (ER) | payer OTHER ==
[2019-03-24] MEDS ORDERED: PROMETHAZINE 25 MG/ML VIAL ONE ×2 (13:13→17:08)
[2019-03-24] MEDS ORDERED: MORPHINE 4 MG/ML SYR ONE ×2 (13:14→17:08)
[2019-03-24] MEDS ORDERED: NA CHLORIDE 0.9% 1,000 ML ONE (13:14)
[2019-03-24 17:02] LABS: Absolute Lymphocytes (CBC) 1.2 K/uL (0.7-4.9); Basophils % 0.7 % (0-1.3); Hematocrit 42.5 % (36.0-45.0); Lymphocytes % 21.9 % (15.3-44.8); MPV 7.4 fL (7.6-11.3); RBC Red Blood Cell Count 4.97 M/uL (3.86-4.86)
[2019-03-24 17:05] LABS: Potassium 4.8 mmol/L (3.5-5.1)
--- NOTE | 2019-03-24 17:44 | RAD REPORT ---
EXAM DESCRIPTION: CT - Abdomen Pelvis W Contrast - 03/24/2019 5:36 pm CLINICAL HISTORY: ABD PAIN COMPARISON: CT study December 2014 TECHNIQUE: Biphasic, helical CT imaging of the abdomen and pelvis was performed following 100 ml non -ionic IV contrast. Oral contrast was given. All CT scans are performed using dose optimization technique as appropriate and may include automated exposure control or mA/KV adjustment according to patient size. FINDINGS: No suspicious findings in the lung bases. The liver, spleen, and pancreas show no suspicious findings. Gallbladder and biliary tree are also wi thout suspicious finding. Symmetric renal function is seen with no hydronephrosis or suspicious renal mass. No pyelonephritis o r acute parenchymal process. No bladder abnormalities. No adrenal abnormalities. Postsurgical changes are noted to the stomach similar to 2015. Small bowel surgical changes stable as well. Rectal anastomotic site also without clear change from comparison. Moderate stool volume scatt ered throughout most of the colon. Cecum is low-lying in the pelvis. No appendicitis findings. Uterus is absent. No ovarian acute finding. No free air, free fluid or inflammatory stranding. No hernia, mass or bulky lymphadenopathy. No suspicious bony findings. IMPRESSION: Contrast enhanced CT abdomen and pelvis showing no acute finding. Nonacute findings detailed in the body of the report. Findings are not significantly different from 2 015.
--- NOTE | 2019-03-24 18:06 | EDPHYS ---
Physician Documentation [facility] Name: Maribel Soto Age: 53 yrs Sex: Female : 1965 Arrival Date: 03/24/2019 Time: 11:49 Bed 16 Private MD: ED Physician Mj Camacho HPI: 03/24 16:49 This 53 yrs old Female presents to ER via Ambulatory with complaints of kb Abdominal Pain. 16:49 The symptoms do not radiate. Modifying factors: The symptoms are alleviated by nothing, kb the symptoms are aggravated by nothing. Severity of pain: At its worst the pain was moderate in the emergency department the pain is unchanged. The patient has not experienced similar symptoms in the past. The patient has not recently seen a physician. 16:49 The patient presents with abdominal pain in the left lower quadrant. Onset: The kb symptoms/episode began/occurred 1 week(s) ago. Associated signs and symptoms: Pertinent positives: nausea and vomiting. The symptoms are described as constant. Pt reports LLQ, nausea and vomiting for a week. States she hasn't been able to keep down her home pain medications (morphine).. 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 - Social history:: Smoking status: Patient/guardian denies using tobacco. - Ebola Screening: : No symptoms or risks identified at this time. ROS: 16:46 Constitutional: Negative for fever, chills, and weight loss, ENT: Negative for injury, kb pain, and discharge, Neck: Negative for injury, pain, and swelling, Cardiovascular: Negative for chest pain, palpitations, and edema, Respiratory: Negative for shortness of breath, cough, wheezing, and pleuritic chest pain, Back: Negative for injury and pain, : Negative for injury, bleeding, discharge, and swelling, MS/Extremity: Negative for injury and deformity, Skin: Negative for injury, rash, and discoloration, Neuro: Negative for headache, weakness, numbness, tingling, and seizure. 16:46 Abdomen/GI: Positive for abdominal pain, nausea, vomiting, and diarrhea. Exam: 16:46 Constitutional: This is a well developed, well nourished patient who is awake, alert, kb and in no acute distress. Head/Face: Normocephalic, atraumatic. Neck: Trachea midline, no thyromegaly or masses palpated, and no cervical lymphadenopathy. Supple, full range of motion without nuchal rigidity, or vertebral point tenderness. No Meningismus. Chest/axilla: Normal chest wall appearance and motion. Nontender with no deformity. No lesions are appreciated. Cardiovascular: Regular rate and rhythm with a normal S1 and S2. No gallops, murmurs, or rubs. Normal PMI, no JVD. No pulse deficits. Respiratory: Lungs have equal breath sounds bilaterally, clear to auscultation and percussion. No rales, rhonchi or wheezes noted. No increased work of breathing, no retractions or nasal flaring. Back: No spinal tenderness. No costovertebral tenderness. Full range of motion. Skin: Warm, dry with normal turgor. Normal color with no rashes, no lesions, and no evidence of cellulitis. MS/ Extremity: Pulses equal, no cyanosis. Neurovascular intact. Full, normal range of motion. Neuro: Awake and alert, GCS 15, oriented to person, place, time, and situation. Cranial nerves II-XII grossly intact. Motor strength 5/5 in all extremities. Sensory grossly intact. Cerebellar exam normal. Normal gait. 16:46 Abdomen/GI: Inspection: abdomen appears normal, Bowel sounds: normal, in all quadrants, Palpation: soft, in all quadrants, moderate abdominal tenderness, in all quadrants. Vital Signs: 12:28 BP 145 / 90; Pulse 88; Resp 18 S; Temp 97.5(TE); Pulse Ox 99% on R/A; Weight 113.4 kg aa5 (R); Height 5 ft. 9 in. (175.26 cm) (R); Pain 9/10; 13:30 BP 154 / 79; Pulse 76; Resp 16 S; Pulse Ox 96% on R/A; Pain 9/10; ca1 14:58 BP 129 / 99; Pulse 71; Resp 16 S; Pulse Ox 97% on R/A; ca1 16:09 BP 116 / 81; Pulse 72; Resp 16 S; Pulse Ox 99% on R/A; ca1 17:17 BP 112 / 82; Pulse 74; Resp 16 S; Pulse Ox 98% on R/A; Pain 8/10; ca1 18:12 BP 111 / 79; Pulse 71; Resp 16 S; Pulse Ox 99% on R/A; ca1 19:01 BP 116 / 84; Pulse 73; Resp 16 S; Pulse Ox 96% on R/A; ca1 12:28 Body Mass Index 36.92 (113.40 kg, 175.26 cm) aa5 MDM: 12:52 Patient medically screened. kb 16:49 Data reviewed: vital signs, nurses notes. Data interpreted: Pulse oximetry: on room air kb is 99 %. Interpretation: normal. 17:51 Counseling: I had a detailed discussion with the patient and/or guardian regarding: the kb historical points, exam findings, and any diagnostic results supporting the discharge/admit diagnosis, lab results, radiology results, the need for outpatient follow up, a family practitioner, a shorts sifter, to return to the emergency department if symptoms worsen or persist or if there are any questions or concerns that arise at home. 03/24 13:00 Order name: Basic Metabolic Panel; Complete Time: 17:07 kb 03/24 13:00 Order name: CBC with Diff; Complete Time: 17:41 kb 03/24 13:00 Order name: CT Abd/Pelvis - IV Contrast Only; Complete Time: 17:51 kb 03/24 13:00 Order name: IV Saline Lock; Complete Time: 13:33 kb 03/24 13:00 Order name: Labs collected and sent; Complete Time: 13:33 kb 03/24 15:09 Order name: Labs - recollect needed; Complete Time: 16:36 bd 03/24 17:52 Order name: PO challenge; Complete Time: 18:59 kb Administered Medications: 13:30 Drug: NS 0.9% 1000 ml Route: IV; Rate: 1000 ml; Site: left antecubital; ca1 14:59 Follow up: Urine output 120 ml; Response: No adverse reaction; IV Status: Completed ca1 infusion; IV Intake: 1000ml 13:30 Drug: Phenergan 12.5 mg Route: IVP; Site: left antecubital; ca1 14:59 Follow up: Response: No adverse reaction; Nausea is decreased ca1 13:34 Drug: morphine 4 mg {Note: RASS - 0.} Route: IVP; Site: left antecubital; ca1 15:00 Follow up: Response: No adverse reaction; Pain is decreased; RASS: Alert and Calm (0) ca1 17:25 Drug: morphine 4 mg {Note: RASS - 0.} Route: IVP; Site: left antecubital; ca1 19:00 Follow up: Response: No adverse reaction; Pain is decreased; RASS: Alert and Calm (0) ca1 17:25 Drug: Phenergan 12.5 mg Route: IVP; Site: left antecubital; ca1 18:59 Follow up: Response: No adverse reaction; Nausea is decreased ca1 Disposition: 03/25 07:30 Co-signature as Attending Physician, Mj Camacho MD I agree with the assessment and evelia plan of care. Disposition: 03/24/19 18:06 Discharged to Home. Impression: Nausea with vomiting, unspecified, Lower abdominal pain, unspecified. - Condition is Stable. - Discharge Instructions: Nausea and Vomiting, Adult, [id number], Abdominal Pain, Adult, [id number]. - Prescriptions for Phenergan 25 mg Rectal Suppository - insert 1 suppository by RECTAL route every 6 hours As needed; 12 suppository. - Medication Reconciliation Form, Thank You Letter, Antibiotic Education, Prescription Opioid Use form. - Follow up: Emergency Department; When: As needed; Reason: Worsening of condition. Follow up: Private Physician; When: 2 - 3 days; Reason: Recheck today's complaints, Continuance of care, Re-evaluation by your physician. Signatures: Dispatcher [employer] EDMS Nydia Wylie, ANNA-C VETERINARY POULTRY INSPECTOR-Funmi Arnold Corey, MD MD cha Calderon, Audri, RN RN aa5 Prabha Curtis, JAYDEN RN ca1 Corrections: (The following items were deleted from the chart) 03/24 19:03 18:06 03/24/2019 18:06 Discharged to Home. Impression: Nausea with vomiting, ca1 unspecified; Lower abdominal pain, unspecified. Condition is Stable. Forms are Medication Reconciliation Form, Thank You Letter, Antibiotic Education, Prescription Opioid Use. Follow up: Emergency Department; When: As needed; Reason: Worsening of condition. Follow up: Private Physician; When: 2 - 3 days; Reason: Recheck today's complaints, Continuance of care, Re-evaluation by your physician. kb
--- NOTE | 2019-03-24 18:06 | ER ---
Nurse's Notes [facility] Name: Maribel Soto Age: 53 yrs Sex: Female : 1965 Arrival Date: 03/24/2019 Time: 11:49 Bed 16 Private MD: Diagnosis: Nausea with vomiting, unspecified;Lower abdominal pain, unspecified Presentation: 03/24 12:25 Presenting complaint: Patient states: LLQ pain that began 2 weeks ago and aa5 nausea/vomiting x 1 week ago. Pt states "I haven't been able to keep my pain medicine down". Transition of care: patient was not received from another setting of care. Onset of symptoms was 2018. Risk Assessment: Do you want to hurt yourself or someone else? Patient reports no desire to harm self or others. Initial Sepsis Screen: Does the patient meet any 2 criteria? No. Patient's initial sepsis screen is negative. Does the patient have a suspected source of infection? No. Patient's initial sepsis screen is negative. Care prior to arrival: None. 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 - Social history:: Smoking status: Patient/guardian denies using tobacco. - Ebola Screening: : No symptoms or risks identified at this time. Screenin:30 Abuse screen: Denies threats or abuse. Denies injuries from another. Nutritional ca1 screening: No deficits noted. Tuberculosis screening: No symptoms or risk factors identified. Fall Risk IV access (20 points). Ambulatory Aid- Crutches/Cane/Walker (15 pts). Total Wooten Fall Scale indicates Low Risk Score (25-44 pts). Fall prevention measures have been instituted. Side Rails Up X 2. Assessment: 13:30 General: Appears in no apparent distress. comfortable, Behavior is calm, cooperative, ca1 appropriate for age. Pain: Complains of pain in left lower quadrant Pain does not radiate. Pain currently is 9 out of 10 on a pain scale. Quality of pain is described as sharp, Pain began few weeks ago Is continuous. Neuro: Level of Consciousness is awake, alert, obeys commands, Oriented to person, place, time, situation, Appropriate for age. Cardiovascular: Heart tones S1 S2 present Capillary refill < 3 seconds Patient's skin is warm and dry. Respiratory: Airway is patent Respiratory effort is even, unlabored, Respiratory pattern is regular, symmetrical, Breath sounds are clear bilaterally. GI: Abdomen is round non-distended, Bowel sounds present X 4 quads. Abd is soft X 4 quads Abdomen is tender to palpation in left lower quadrant Reports nausea. : No deficits noted. No signs and/or symptoms were reported regarding the genitourinary system. EENT: No deficits noted. No signs and/or symptoms were reported regarding the EENT system. Derm: Skin is intact, is healthy with good turgor, Skin is pink, warm \\T\\ dry. Musculoskeletal: Circulation, motion, and sensation intact. Capillary refill < 3 seconds, Range of motion: intact in all extremities. 14:58 Reassessment: Patient appears in no apparent distress at this time. Patient and/or ca1 family updated on plan of care and expected duration. Pain level reassessed. Patient is alert, oriented x 3, equal unlabored respirations, skin warm/dry/pink. 16:09 Reassessment: Patient appears in no apparent distress at this time. Patient is alert, ca1 oriented x 3, equal unlabored respirations, skin warm/dry/pink. Blood sent to lab was hemolyzed. Called lab for recollect, lab personnel was unsuccessful. Notified CN. 17:17 Reassessment: Patient appears in no apparent distress at this time. Patient is alert, ca1 oriented x 3, equal unlabored respirations, skin warm/dry/pink. Pt c/o abdominal pain and vomiting. Notified provider. Meds given. 18:00 Reassessment: Patient appears in no apparent distress at this time. Patient and/or ca1 family updated on plan of care and expected duration. Pain level reassessed. Patient is alert, oriented x 3, equal unlabored respirations, skin warm/dry/pink. 19:01 Reassessment: Patient appears in no apparent distress at this time. Patient is alert, ca1 oriented x 3, equal unlabored respirations, skin warm/dry/pink. Drink sips of water. No reports of nausea and vomiting at this time. Vital Signs: 12:28 BP 145 / 90; Pulse 88; Resp 18 S; Temp 97.5(TE); Pulse Ox 99% on R/A; Weight 113.4 kg aa5 (R); Height 5 ft. 9 in. (175.26 cm) (R); Pain 9/10; 13:30 BP 154 / 79; Pulse 76; Resp 16 S; Pulse Ox 96% on R/A; Pain 9/10; ca1 14:58 BP 129 / 99; Pulse 71; Resp 16 S; Pulse Ox 97% on R/A; ca1 16:09 BP 116 / 81; Pulse 72; Resp 16 S; Pulse Ox 99% on R/A; ca1 17:17 BP 112 / 82; Pulse 74; Resp 16 S; Pulse Ox 98% on R/A; Pain 8/10; ca1 18:12 BP 111 / 79; Pulse 71; Resp 16 S; Pulse Ox 99% on R/A; ca1 19:01 BP 116 / 84; Pulse 73; Resp 16 S; Pulse Ox 96% on R/A; ca1 12:28 Body Mass Index 36.92 (113.40 kg, 175.26 cm) aa5 ED Course: 11:49 Patient arrived in ED. mr 12:25 Arm band placed on. aa5 12:26 Triage completed. aa5 12:30 Prabha Curtis, JAYDEN is Primary Nurse. ca1 12:52 Nydia Wylie FNP-C is PHCP. kb 12:52 Mj Camacho MD is Attending Physician. kb 13:30 Patient has correct armband on for positive identification. Bed in low position. Call ca1 light in reach. Side rails up X 1. Pulse ox on. NIBP on. Warm blanket given. 13:30 No provider procedures requiring assistance completed. Inserted saline lock: 22 gauge ca1 in left antecubital area, using aseptic technique. 15:08 Radiology exam delayed due to lab results not completed at this time. (BUN/Creatinine). jj2 15:48 Radiology exam delayed due to lab results not completed at this time. (BUN/Creatinine). jj2 15:49 Note: Lab Recollect ordered, pending labs for CT. jj2 16:30 Lab(s) recollected, by me, sent to lab. ss 17:36 CT Abd/Pelvis - IV Contrast Only In Process Unspecified. EDMS 19:02 IV discontinued, intact, bleeding controlled, No redness/swelling at site. Pressure ca1 dressing applied. Administered Medications: 13:30 Drug: NS 0.9% 1000 ml Route: IV; Rate: 1000 ml; Site: left antecubital; ca1 14:59 Follow up: Urine output 120 ml; Response: No adverse reaction; IV Status: Completed ca1 infusion; IV Intake: 1000ml 13:30 Drug: Phenergan 12.5 mg Route: IVP; Site: left antecubital; ca1 14:59 Follow up: Response: No adverse reaction; Nausea is decreased ca1 13:34 Drug: morphine 4 mg {Note: RASS - 0.} Route: IVP; Site: left antecubital; ca1 15:00 Follow up: Response: No adverse reaction; Pain is decreased; RASS: Alert and Calm (0) ca1 17:25 Drug: morphine 4 mg {Note: RASS - 0.} Route: IVP; Site: left antecubital; ca1 19:00 Follow up: Response: No adverse reaction; Pain is decreased; RASS: Alert and Calm (0) ca1 17:25 Drug: Phenergan 12.5 mg Route: IVP; Site: left antecubital; ca1 18:59 Follow up: Response: No adverse reaction; Nausea is decreased ca1 Intake: 14:59 IV: 1000ml; Total: 1000ml. ca1 Output: 14:59 Urine: 120ml; Total: 120ml. ca1 Outcome: 18:06 Discharge ordered by . dez 19:02 Discharged to home via wheelchair, with friend. ca1 19:02 Condition: stable 19:02 Discharge instructions given to patient, Instructed on discharge instructions, follow up and referral plans. medication usage, Demonstrated understanding of instructions, follow-up care, medications, Prescriptions given X 1. 19:03 Patient left the ED. ca1 Signatures: Dispatcher [employer] EDMS Nydia Wylie, DERIK CASTILLO-Snow Clifford mr Tillman Edward jj2 Claribel Marshall, RN RN aa5 Viky Perez, RN RN ss Acob, Prabha, RN RN ca1
[2019-03-24 19:16] VITALS: TEMP 97.5
[2019-03-24 19:26] VITALS: BP 116/84; O2SAT 96
== END 2019-03-24 19:03 | disposition home or self-care (01) ==
LOC: ER 11:48
DX: R11.2 Nausea with vomiting, unspecified (principal); R10.30 Lower abdominal pain, unspecified; Z88.0 Allergy status to penicillin; Z88.1 Allergy status to other antibiotic agents; Z88.8 Allergy status to other drugs, medicaments and biological substances
CPT/HCPCS: 96361; 85025; 80048; 36415; 74177; 96375; 96374; 99284; Q9967; J2550 ×2; J7030

== ENCOUNTER 2019-03-25 07:48 | Emergency (ER) | payer OTHER ==
[2019-03-25] MEDS ORDERED: METOCLOPRAMIDE 10 MG/2mL INJ ONE (08:19)
[2019-03-25] MEDS ORDERED: NA CHLORIDE 0.9% 1,000 ML ONE (08:19)
[2019-03-25] MEDS ORDERED: DIPHENHYDRAMINE 50 MG/ML VIAL ONE (08:19)
[2019-03-25] MEDS ORDERED: PROMETHAZINE 25 MG/ML VIAL ONE ×2 (08:48→13:14)
[2019-03-25 09:01] LABS: Potassium 4.1 mmol/L (3.5-5.1)
[2019-03-25 09:04] LABS: Absolute Lymphocytes (CBC) 1.2 K/uL (0.7-4.9); Basophils % 1.3 % (0-1.3); Hematocrit 41.3 % (36.0-45.0); Lymphocytes % 20.8 % (15.3-44.8); MPV 7.1 fL (7.6-11.3)
--- NOTE | 2019-03-25 09:44 | RAD REPORT ---
EXAM DESCRIPTION: RAD - Abdomen 1 View (KUB) - 03/25/2019 9:22 am CLINICAL HISTORY: Abdomen pain. FINDINGS: The bowel gas pattern is unremarkable. Moderate to large amount of stool is present throughout the colon. Small pelvic calcifications probably phleboliths.
[2019-03-25] MEDS ORDERED: dexAMETHasone 10 MG/ML VIAL ONE (09:48)
[2019-03-25] MEDS ORDERED: KETOROLAC 30 MG/ML INJ ONE (09:48)
[2019-03-25] MEDS ORDERED: MORPHINE 4 MG/ML SYR ONE (10:54)
--- NOTE | 2019-03-25 11:34 | ER ---
Nurse's Notes [facility] Name: Maribel Soto Age: 53 yrs Sex: Female : 1965 Arrival Date: 03/25/2019 Time: 07:51 Bed 19 Private MD: Diagnosis: Constipation;Vomiting Presentation: 03/25 07:57 Presenting complaint: Patient states: Abdominal pain that began a couple days ago, was sg seen here and treated yesterday, reports this morning feeling worse with vomiting and not able to take her medications also reports a headache that started two days ago. Transition of care: patient was not received from another setting of care. Onset of symptoms was March 25, 2019. Risk Assessment: Do you want to hurt yourself or someone else? Patient reports no desire to harm self or others. Initial Sepsis Screen: Does the patient meet any 2 criteria? No. Patient's initial sepsis screen is negative. Does the patient have a suspected source of infection? No. Patient's initial sepsis screen is negative. Care prior to arrival: None. 07:57 Method Of Arrival: Ambulatory 07:57 Acuity: LILIAN 3 sg Historical: - Allergies: 08:05 BACLOFEN; sg 08:05 Bactrim; sg 08:05 Opana; sg 08:05 Zofran; sg 08:05 PENICILLINS; sg - PMHx: 08:05 Anxiety; Asthma; Chronic pain; Diverticulitis; Fibromyalgia; Bryce; Lupus; sg Migraines; Ulcers; - PSHx: 08:05 Colon resection; Hysterectomy; Appendectomy; sg - Immunization history:: Adult Immunizations up to date. - Social history:: Smoking status: Patient/guardian denies using tobacco. - Ebola Screening: : Patient negative for fever greater than or equal to 101.5 degrees Fahrenheit, and additional compatible Ebola Virus Disease symptoms Patient denies exposure to infectious person Patient denies travel to an Ebola-affected area in the 21 days before illness onset No symptoms or risks identified at this time. Screenin:00 Abuse screen: Denies threats or abuse. Denies injuries from another. Nutritional sg screening: No deficits noted. Tuberculosis screening: No symptoms or risk factors identified. Never had TB. Fall Risk None identified. Assessment: 08:00 General: Appears uncomfortable, ill, well groomed, well developed, well nourished, sg Behavior is cooperative, appropriate for age, crying. Pain: Complains of pain in head and abdomen Quality of pain is described as aching, throbbing. Neuro: Level of Consciousness is awake, alert, obeys commands, Oriented to person, place, time, situation, Speech is normal, Facial symmetry appears normal, Reports headache in entire frontal area, and top of scalp. Cardiovascular: Patient's skin is warm and dry. Chest pain is denied. Respiratory: Airway is patent Respiratory effort is even, unlabored, Respiratory pattern is regular, symmetrical. GI: Bowel sounds present X 4 quads. Abd is soft X 4 quads Abdomen is tender to palpation in right lower quadrant and left lower quadrant Reports nausea, vomiting. : No signs and/or symptoms were reported regarding the genitourinary system. EENT: No signs and/or symptoms were reported regarding the EENT system. Derm: Skin is pink, warm \T\ dry. Musculoskeletal: Circulation, motion, and sensation intact. Range of motion: intact in all extremities. Vital Signs: 07:57 BP 97 / 78; Pulse 83; Resp 17; Pulse Ox 99% on R/A; Pain 9/10; sg 09:00 BP 132 / 72; Pulse 70; Resp 18; Pulse Ox 100% on R/A; sg 12:22 BP 134 / 74; Pulse 67; Resp 17; Pulse Ox 98% on R/A; Pain 6/10; sg ED Course: 07:51 Patient arrived in ED. mr 07:56 Ike Nicole, RN is Primary Nurse. sg 07:57 Arm band placed on. sg 07:58 [facility]. jr8 07:58 Bakari Fairchild MD is Attending Physician. jr8 07:59 Triage completed. sg 08:20 Initial lab(s) drawn, by me, sent to lab. Accessed Port-a-Cath. using accessed w/ # 20 sg [place] needle, Clean \T\ dry. Good blood return. Flushes easily. 09:21 Abdomen 1 View (KUB) XRAY In Process Unspecified. EDMS 11:33 Baljit Joshi MD is Referral Physician. jr8 Administered Medications: 08:30 Drug: Benadryl 25 mg Route: IVP; Site: Port-a-cath; sg 08:30 Drug: Reglan 10 mg Route: IVP; Site: Port-a-cath; sg 08:30 Drug: NS 0.9% 1000 ml Route: IV; Rate: 1 bolus; Site: Port-a-cath; sg 08:54 Drug: Phenergan 12.5 mg Route: IVP; Site: Port-a-cath; sg 10:00 Drug: TORadol - Ketorolac 15 mg Route: IVP; Site: Port-a-cath; sg 10:00 Drug: Decadron - Dexamethasone 10 mg Route: IVP; Site: Port-a-cath; sg 10:55 Drug: morphine 4 mg Route: IVP; Site: Port-a-cath; sg 13:19 Drug: Phenergan 6.25 mg Route: IVP; Site: Port-a-cath; Outcome: 11:33 Discharge ordered by MD. connolly 13:38 Patient left the ED. sg Signatures: Dispatcher [employer] EDIke Horton RN RN [facility] mr Federico Francois PA PA jr8
--- NOTE | 2019-03-25 11:34 | EDPHYS ---
Physician Documentation [facility] Name: Maribel Soto Age: 53 yrs Sex: Female : 1965 Arrival Date: 03/25/2019 Time: 07:51 Bed 19 Private MD: ED Physician Bakari Fairchild HPI: 03/25 08:14 This 53 yrs old Female presents to ER via Ambulatory with complaints of jr8 Abdominal Pain, Vomiting, Headache. 08:14 The patient presents with abdominal pain in the lower abdomen. Onset: The jr8 symptoms/episode began/occurred 2 day(s) ago. The symptoms do not radiate. Associated signs and symptoms: Pertinent positives: nausea and vomiting. The symptoms are described as crampy, sharp. Severity of pain: At its worst the pain was moderate. pt reports lower abd pain, was seen in ED yesterday and had labs and CT without significant abnormal findings, states despite taking her suppository phenergan she is still vomiting and has a headache in addition to her abd pain persisting. Historical: - Allergies: 08:05 BACLOFEN; sg 08:05 Bactrim; sg 08:05 Opana; sg 08:05 Zofran; sg 08:05 PENICILLINS; sg - PMHx: 08:05 Anxiety; Asthma; Chronic pain; Diverticulitis; Fibromyalgia; Bryce; Lupus; sg Migraines; Ulcers; - PSHx: 08:05 Colon resection; Hysterectomy; Appendectomy; sg - Immunization history:: Adult Immunizations up to date. - Social history:: Smoking status: Patient/guardian denies using tobacco. - Ebola Screening: : Patient negative for fever greater than or equal to 101.5 degrees Fahrenheit, and additional compatible Ebola Virus Disease symptoms Patient denies exposure to infectious person Patient denies travel to an Ebola-affected area in the 21 days before illness onset No symptoms or risks identified at this time. ROS: 08:15 Constitutional: Negative for fever, chills, and weight loss, Eyes: Negative for injury, jr8 pain, redness, and discharge, ENT: Negative for injury, pain, and discharge, Neck: Negative for injury, pain, and swelling, Cardiovascular: Negative for chest pain, palpitations, and edema, Respiratory: Negative for shortness of breath, cough, wheezing, and pleuritic chest pain, Back: Negative for injury and pain, MS/Extremity: Negative for injury and deformity, Skin: Negative for injury, rash, and discoloration. 08:15 Abdomen/GI: Positive for abdominal pain, nausea, vomiting. 08:15 Neuro: Positive for headache. Exam: 08:15 Constitutional: This is a well developed, well nourished patient who is awake, alert, jr8 and in no acute distress. Head/Face: Normocephalic, atraumatic. Eyes: Pupils equal round and reactive to light, extra-ocular motions intact. Lids and lashes normal. Conjunctiva and sclera are non-icteric and not injected. Cornea within normal limits. Periorbital areas with no swelling, redness, or edema. ENT: Nares patent. No nasal discharge, no septal abnormalities noted. Tympanic membranes are normal and external auditory canals are clear. Oropharynx with no redness, swelling, or masses, exudates, or evidence of obstruction, uvula midline. Mucous membranes moist. Neck: Trachea midline, no thyromegaly or masses palpated, and no cervical lymphadenopathy. Supple, full range of motion without nuchal rigidity, or vertebral point tenderness. No Meningismus. Chest/axilla: Normal chest wall appearance and motion. Nontender with no deformity. No lesions are appreciated. Cardiovascular: Regular rate and rhythm with a normal S1 and S2. No gallops, murmurs, or rubs. Normal PMI, no JVD. No pulse deficits. Respiratory: Lungs have equal breath sounds bilaterally, clear to auscultation and percussion. No rales, rhonchi or wheezes noted. No increased work of breathing, no retractions or nasal flaring. 08:15 Abdomen/GI: Inspection: abdomen appears normal, obese Bowel sounds: normal, in all quadrants, Palpation: soft, in all quadrants, mild abdominal tenderness, in all quadrants. Vital Signs: 07:57 BP 97 / 78; Pulse 83; Resp 17; Pulse Ox 99% on R/A; Pain 9/10; sg 09:00 BP 132 / 72; Pulse 70; Resp 18; Pulse Ox 100% on R/A; sg 12:22 BP 134 / 74; Pulse 67; Resp 17; Pulse Ox 98% on R/A; Pain 6/10; sg MDM: 07:58 Patient medically screened. jr8 11:32 Data reviewed: vital signs, nurses notes, old medical records, lab test result(s), and jr8 as a result, I will discharge patient. Data interpreted: Pulse oximetry: on room air is 99 %. Interpretation: normal. 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 ED course: No acute changes on labs from yesterday. Plain film with normal bowel gas pattern. Still constipated. Feeling better after hydration and medicine. Will send home on Miralax. Needs to f/u with GI. 03/25 08:13 Order name: CBC with Diff; Complete Time: 09:18 jr8 03/25 08:13 Order name: BMP; Complete Time: 09:18 jr8 03/25 08:13 Order name: Abdomen 1 View (KUB) XRAY; Complete Time: 09:49 jr8 03/25 08:13 Order name: Misc. Order: access port; Complete Time: 08:54 jr8 Administered Medications: 08:30 Drug: Benadryl 25 mg Route: IVP; Site: Port-a-cath; sg 08:30 Drug: Reglan 10 mg Route: IVP; Site: Port-a-cath; sg 08:30 Drug: NS 0.9% 1000 ml Route: IV; Rate: 1 bolus; Site: Port-a-cath; sg 08:54 Drug: Phenergan 12.5 mg Route: IVP; Site: Port-a-cath; sg 10:00 Drug: TORadol - Ketorolac 15 mg Route: IVP; Site: Port-a-cath; sg 10:00 Drug: Decadron - Dexamethasone 10 mg Route: IVP; Site: Port-a-cath; sg 10:55 Drug: morphine 4 mg Route: IVP; Site: Port-a-cath; sg 13:19 Drug: Phenergan 6.25 mg Route: IVP; Site: Port-a-cath; sg Disposition: 03/26 09:08 Co-signature as Attending Physician, Bakari Fairchild MD I agree with the assessment and kdr plan of care. Disposition: 03/25/19 11:33 Discharged to Home. Impression: Constipation, Vomiting. - Condition is Stable. - Discharge Instructions: Constipation, Adult, Nausea and Vomiting, Adult. - Prescriptions for Miralax 17 gram/dose Oral - take 1 packet by ORAL route once daily dilute powder in 8 ounces of water or juice; 1 box. - Medication Reconciliation Form, Thank You Letter, Antibiotic Education, Prescription Opioid Use form. - Follow up: Baljit Joshi MD; When: 2 - 3 days; Reason: Recheck today's complaints, Continuance of care, Re-evaluation by your physician. - Problem is new. - Symptoms have improved. Signatures: Dispatcher [employer] EDMS Ike Nicole RN RN sg Bakari Fairchild MD MD kdr Federico Francois PA PA jr8 Corrections: (The following items were deleted from the chart) 03/25 13:38 11:33 03/25/2019 11:33 Discharged to Home. Impression: Constipation; Vomiting. sg Condition is Stable. Forms are Medication Reconciliation Form, Thank You Letter, Antibiotic Education, Prescription Opioid Use. Follow up: Baljit Joshi; When: 2 - 3 days; Reason: Recheck today's complaints, Continuance of care, Re-evaluation by your physician. Problem is new. Symptoms have improved. jr8
[2019-03-25 13:51] VITALS: BP 134/74; O2SAT 98
== END 2019-03-25 13:38 | disposition home or self-care (01) ==
LOC: ER 07:48
DX: K59.00 Constipation, unspecified (principal); R11.10 Vomiting, unspecified; Z88.1 Allergy status to other antibiotic agents; Z88.0 Allergy status to penicillin; Z88.8 Allergy status to other drugs, medicaments and biological substances
CPT/HCPCS: 85025; 80048; 36415; 74018; 96375; 96374; 99284; J2765; J2550 ×2; J1200; J1100; J7030

== ENCOUNTER 2019-04-06 09:41 | Emergency (ER) | payer OTHER ==
[2019-04-06] MEDS ORDERED: FUROSEMIDE 40 MG/4 ML VIAL ONE (10:38)
[2019-04-06] MEDS ORDERED: METHYLPREDNISOLONE 125 MG INJ ONE (10:38)
[2019-04-06] MEDS ORDERED: DIPHENHYDRAMINE 50 MG/ML VIAL ONE (10:38)
[2019-04-06 11:46] LABS: Urine Blood NEGATIVE (NEG); Urine Glucose NEGATIVE (NEG); Urine Protein NEGATIVE (NEG)
[2019-04-06 11:47] LABS: Absolute Lymphocytes (CBC) 0.8 K/uL (0.7-4.9); Basophils % 0.8 % (0-1.3); Hematocrit 31.4 % (36.0-45.0); Lymphocytes % 21.7 % (15.3-44.8); MPV 7.9 fL (7.6-11.3); RBC Red Blood Cell Count 3.63 M/uL (3.86-4.86)
[2019-04-06 12:18] LABS: C-Reactive Protein 9.04 mg/L (<3.00); Potassium 4.2 mmol/L (3.5-5.1)
--- NOTE | 2019-04-06 12:20 | RAD REPORT ---
EXAM DESCRIPTION: US - Extrem Venous W Compress Juan - 04/06/2019 12:14 pm CLINICAL HISTORY: SWELLING Bilateral leg edema and swelling. COMPARISON: EXT VENOUS W COMPRESSION JUAN dated 01/20/2011 TECHNIQUE: Real-time sonographic interrogation of the left and right lower extremity deep venous sys tems was performed. FINDINGS: Normal compressibility, flow augmentation, phasic flow and spontaneous flow is identified in both the left and right lower extremity deep venous systems. IMPRESSION: No sonographic evidence of left or right lower extremity deep venous thrombosis.
[2019-04-06 13:00] LABS: Protime INR 0.93
[2019-04-06] MEDS ORDERED: ACETAMINOPHEN 500 MG TAB ONE (13:06)
[2019-04-06] MEDS ORDERED: PROMETHAZINE 25 MG/ML VIAL ONE (13:06)
--- NOTE | 2019-04-06 13:06 | ER ---
Nurse's Notes [facility] Name: Maribel Soto Age: 54 yrs Sex: Female : 1965 Arrival Date: 04/06/2019 Time: 09:44 Bed 18 Private MD: Valeria Sawant Diagnosis: Localized swelling, mass and lump, lower limb, bilateral;Localized swelling, mass and lump, upper limb, bilateral Presentation: 04/06 09:46 Presenting complaint: Patient states: my hands and my feet have been swelling really tw2 bad, its been off and on for this past month, this morning it started going up my arm, their numb but they hurt, i have neuropathy , i have been getting hot flashes but i feel cold, i do have seizures. Transition of care: patient was not received from another setting of care. Onset of symptoms was April 06, 2019. Risk Assessment: Do you want to hurt yourself or someone else? Patient reports no desire to harm self or others. Initial Sepsis Screen: Does the patient meet any 2 criteria? No. Patient's initial sepsis screen is negative. Does the patient have a suspected source of infection? No. Patient's initial sepsis screen is negative. Care prior to arrival: None. 09:46 Method Of Arrival: Ambulatory tw2 09:46 Acuity: LILIAN 3 tw2 Triage Assessment: 09:48 General: Appears in no apparent distress. Behavior is cooperative. Pain: Complains of tw2 pain in B/L hands. Musculoskeletal: Reports swelling in b/l hands and feet. 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 tw2 Historical: - Allergies: 09:51 BACLOFEN; tw2 09:51 Bactrim; tw2 09:51 Opana; tw2 09:51 PENICILLINS; tw2 09:51 Zofran; tw2 - Home Meds: 09:51 oxymorphone oral oral [Active]; morphine 10 mg Oral CERP 1 cap every 12 hours [Active]; tw2 gabapentin Oral 3 times per day [Active]; naratriptan Oral daily [Active]; Phenergan Oral 50 mg every 6 hours [Active]; sumatriptan succinate 6 mg/0.5 mL Sub-Q syrg as needed [Active]; "inhaler" [Active]; - PMHx: 09:51 Ulcers; Migraines; Bryce; Fibromyalgia; Diverticulitis; Asthma; Chronic pain; tw2 Lupus; Anxiety; 09:52 Seizures; tw2 - PSHx: 09:51 Colon resection; Hysterectomy; Appendectomy; tw2 - Immunization history:: Adult Immunizations. - Social history:: Smoking status: . - Ebola Screening: : Patient denies travel to an Ebola-affected area in the 21 days before illness onset. Screenin:15 Abuse screen: Denies threats or abuse. Denies injuries from another. Nutritional jl7 screening: No deficits noted. Tuberculosis screening: No symptoms or risk factors identified. Fall Risk IV access (20 points). Gait- Weak (10 pts.). Total Wooten Fall Scale indicates Low Risk Score (25-44 pts). Fall prevention measures have been instituted. Side Rails Up X 2 Placed close to Nursing Station Frequent Obs/Assesments occuring As available Patient and Family Educated on Fall Prevention Program and strategies. Assessment: 10:15 General: Appears in no apparent distress. uncomfortable, Behavior is cooperative, jl7 appropriate for age, anxious, crying. Pain: Complains of pain in hands, legs and feet Pain currently is 8 out of 10 on a pain scale. Pain began years ago. Is continuous. Neuro: Level of Consciousness is awake, alert, obeys commands, Oriented to person, place, time, situation. Cardiovascular: Heart tones present Patient's skin is warm and dry. Respiratory: Airway is patent Respiratory effort is even, unlabored, Respiratory pattern is regular, symmetrical, Breath sounds are clear bilaterally. GI: Reports nausea. : Reports urinary frequency. EENT: No signs and/or symptoms were reported regarding the EENT system. Derm: Skin is pink, warm \\T\\ dry. Musculoskeletal: Swelling present in right hand, left hand, right ankle, dorsum of right foot, left lateral ankle and dorsum of left foot. 11:15 Reassessment: Patient appears in no apparent distress at this time. No changes from jl7 previously documented assessment. Patient and/or family updated on plan of care and expected duration. Pain level reassessed. Patient is alert, oriented x 3, equal unlabored respirations, skin warm/dry/pink. 13:03 Reassessment: Pt c/o CAPPS and nausea, rated 6/10, ERP notified see MAR for orders. jl7 13:05 Reassessment: Dr. Fairchild at bedside discussing results and plan of care. jl7 13:15 Reassessment: Pt on bedside commode, will be discharged once she's done. jl7 Vital Signs: 09:51 BP 156 / 117; Pulse 92; Resp 18; Temp 97.4(TE); Pulse Ox 97% on NC; Weight 115.67 kg; tw2 Height 5 ft. 9 in. (175.26 cm) (R); Pain 8/10; 11:38 BP 145 / 93; Pulse 76; Resp 14; Temp 98.2(O); Pulse Ox 99% on R/A; mh5 13:19 BP 143 / 96; Pulse 86; Resp 16; Temp 98.0(O); Pulse Ox 98% on R/A; mh5 09:51 Body Mass Index 37.66 (115.67 kg, 175.26 cm) tw2 ED Course: 09:44 Patient arrived in ED. ag5 09:44 Valeria Sawant MD is Private Physician. ag5 09:48 Triage completed. tw2 09:48 Arm band placed on. tw2 09:53 Elizabeth Bal RN is Primary Nurse. jl7 10:01 Bakari Fairchild MD is Attending Physician. kdr 10:15 Patient has correct armband on for positive identification. Placed in gown. Bed in low jl7 position. Call light in reach. Side rails up X 1. electronic device monitor on. Pulse ox on. NIBP on. Warm blanket given. 11:36 Initial lab(s) drawn, by me, sent to lab. Accessed Port-a-Cath. using accessed w/ # 20 jl7 Barroso needle, ,sterile technique, per hospital protocol. Clean \\T\\ dry. Dressing intact. Good blood return. Flushes easily. 12:15 US Extremity Venous W Compression Juan In Process Unspecified. EDMS 13:04 Valeria Sawant MD is Referral Physician. kdr 13:56 No provider procedures requiring assistance completed. port-a-cath access discontinued jl7 and flushed with 500 U Hep-Lock per protocol. Administered Medications: 11:25 Drug: SOLU-Medrol 125 mg Route: IVP; Site: Port-a-cath; jl7 12:00 Follow up: Response: No adverse reaction jl7 11:30 Drug: Lasix 40 mg Route: IVP; Site: Port-a-cath; jl7 12:00 Follow up: Response: No adverse reaction jl7 11:33 Drug: Benadryl 25 mg Route: IVP; Site: Port-a-cath; jl7 12:00 Follow up: Response: No adverse reaction jl7 13:10 Drug: Phenergan 12.5 mg Route: IVP; Site: Port-a-cath; jl7 13:30 Follow up: Response: No adverse reaction; Nausea is decreased jl7 13:10 Drug: Tylenol 1000 mg Route: PO; jl7 13:54 Follow up: Response: No adverse reaction; Pain is decreased jl7 Outcome: 13:05 Discharge ordered by . kdr 13:56 Discharged to home ambulatory. 7 13:56 Condition: stable 13:56 Discharge instructions given to patient, Instructed on discharge instructions, follow up and referral plans. medication usage, Demonstrated understanding of instructions, follow-up care, medications, Prescriptions given X 3. 13:57 Patient left the ED. jl7 Signatures: Dispatcher [employer] EDMS Bakari Fairchild MD MD kdr Wise, Tara, RN RN 2 Adelia Gomez 5 Elizabeth Bal RN RN jl7 Sheela Morales 5 Corrections: (The following items were deleted from the chart) 13:19 11:38 BP 145 / 93; Pulse 76bpm; Resp 14bpm; Pulse Ox 99% RA; mh5 mh5
--- NOTE | 2019-04-06 13:06 | EDPHYS ---
Physician Documentation [facility] Name: Maribel oSto Age: 54 yrs Sex: Female : 1965 Arrival Date: 04/06/2019 Time: 09:44 Bed 18 Private MD: Valeria Sawant ED Physician Bakari Fairchild HPI: 04/06 11:02 This 54 yrs old Female presents to ER via Ambulatory with complaints of Hand kdr Swelling, Feet Swelling, Arm Pain. 11:02 The patient has intermittent swelling to her hands and feet for the past month. She kdr does not know what may be causing it and has not had any significant changes in her medications or health. She has multiple medical problems including lupus. She has not been on steroids recently and has been otherwise stable with no CP or SOB.. Onset: The symptoms/episode began/occurred gradually, 1 month(s) ago. Severity of symptoms: At their worst the symptoms were mild moderate just prior to arrival, in the emergency department the symptoms are unchanged. The patient has not experienced similar symptoms in the past. The patient has not recently seen a physician. 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 tw2 Historical: - Allergies: 09:51 BACLOFEN; tw2 09:51 Bactrim; tw2 09:51 Opana; tw2 09:51 PENICILLINS; tw2 09:51 Zofran; tw2 - Home Meds: 09:51 oxymorphone oral oral [Active]; morphine 10 mg Oral CERP 1 cap every 12 hours [Active]; tw2 gabapentin Oral 3 times per day [Active]; naratriptan Oral daily [Active]; Phenergan Oral 50 mg every 6 hours [Active]; sumatriptan succinate 6 mg/0.5 mL Sub-Q syrg as needed [Active]; "inhaler" [Active]; - PMHx: 09:51 Ulcers; Migraines; Bryce; Fibromyalgia; Diverticulitis; Asthma; Chronic pain; tw2 Lupus; Anxiety; 09:52 Seizures; tw2 - PSHx: 09:51 Colon resection; Hysterectomy; Appendectomy; tw2 - Immunization history:: Adult Immunizations. - Social history:: Smoking status: . - Ebola Screening: : Patient denies travel to an Ebola-affected area in the 21 days before illness onset. ROS: 11:02 Constitutional: Negative for fever, chills, and weight loss, Eyes: Negative for injury, kdr pain, redness, and discharge, Neck: Negative for injury, pain, and swelling, Cardiovascular: Negative for chest pain, palpitations, and edema, Respiratory: Negative for shortness of breath, cough, wheezing, and pleuritic chest pain, Abdomen/GI: Negative for abdominal pain, nausea, vomiting, diarrhea, and constipation, Back: Negative for injury and pain, Skin: Negative for injury, rash, and discoloration, Neuro: Negative for headache, weakness, numbness, tingling, and seizure activity. Psych: Negative for depression, anxiety, suicide ideation, homicidal ideation, and hallucinations, Allergy/Immunology: Negative for hives, rash, and allergies, Endocrine: Negative for neck swelling, polydipsia, polyuria, polyphagia, and marked weight changes, Hematologic/Lymphatic: Negative for swollen nodes, abnormal bleeding, and unusual bruising. 11:02 MS/extremity: Positive for ecchymosis, swelling, tenderness, of the right arm, left arm, right leg, lateral aspect of left calf, left lateral ankle, lateral aspect of left foot, left calf, left Achilles, left heel, medial aspect of left calf, left medial ankle, medial aspect of left foot, left nixon, anterior aspect of left ankle and dorsum of left foot, Negative for injury or acute deformity, decreased range of motion, laceration. Exam: 11:02 Constitutional: This is a well developed, well nourished patient who is awake, alert, kdr and in no acute distress. Head/Face: Normocephalic, atraumatic. Eyes: Pupils equal round and reactive to light, extra-ocular motions intact. Lids and lashes normal. Conjunctiva and sclera are non-icteric and not injected. Cornea within normal limits. Periorbital areas with no swelling, redness, or edema. Neck: Trachea midline, no thyromegaly or masses palpated, and no cervical lymphadenopathy. Supple, full range of motion without nuchal rigidity, or vertebral point tenderness. No Meningismus. Chest/axilla: Normal chest wall appearance and motion. Nontender with no deformity. No lesions are appreciated. Cardiovascular: Regular rate and rhythm with a normal S1 and S2. No gallops, murmurs, or rubs. Normal PMI, no JVD. No pulse deficits. Respiratory: Lungs have equal breath sounds bilaterally, clear to auscultation and percussion. No rales, rhonchi or wheezes noted. No increased work of breathing, no retractions or nasal flaring. Abdomen/GI: Soft, non-tender, with normal bowel sounds. No distension or tympany. No guarding or rebound. No evidence of tenderness throughout. Back: No spinal tenderness. No costovertebral tenderness. Full range of motion. Neuro: Awake and alert, GCS 15, oriented to person, place, time, and situation. Cranial nerves II-XII grossly intact. Motor strength 5/5 in all extremities. Sensory grossly intact. Cerebellar exam normal. Normal gait. Psych: Awake, alert, with orientation to person, place and time. Behavior, mood, and affect are within normal limits. 11:02 Musculoskeletal/extremity: Sensation intact. 11:02 Skin: Appearance: Color: normal in color, ecchymosis, that are mild, and are scattered, of the right arm, left arm, right leg and left leg. Vital Signs: 09:51 BP 156 / 117; Pulse 92; Resp 18; Temp 97.4(TE); Pulse Ox 97% on NC; Weight 115.67 kg; tw2 Height 5 ft. 9 in. (175.26 cm) (R); Pain 8/10; 11:38 BP 145 / 93; Pulse 76; Resp 14; Temp 98.2(O); Pulse Ox 99% on R/A; mh5 13:19 BP 143 / 96; Pulse 86; Resp 16; Temp 98.0(O); Pulse Ox 98% on R/A; mh5 09:51 Body Mass Index 37.66 (115.67 kg, 175.26 cm) tw2 MDM: 13:05 Patient medically screened. kdr 16:15 Data reviewed: vital signs, nurses notes, lab test result(s), radiologic studies. kdr Counseling: I had a detailed discussion with the patient and/or guardian regarding: the historical points, exam findings, and any diagnostic results supporting the discharge/admit diagnosis, lab results, radiology results, the need for outpatient follow up. 04/06 10:27 Order name: CBC with Diff; Complete Time: 12:59 kdr 04/06 10:27 Order name: Chem 7; Complete Time: 12:32 kdr 04/06 10:27 Order name: PT-INR; Complete Time: 16:26 kdr 04/06 10:27 Order name: ESR; Complete Time: 12:59 kdr 04/06 10:27 Order name: CRP; Complete Time: 12:32 kdr 04/06 11:29 Order name: Urine Dipstick--Ancillary (enter results); Complete Time: 12:32 eb 04/06 10:27 Order name: US Extremity Venous W Compression Juan; Complete Time: 12:32 kdr 04/06 11:29 Order name: Urine --Ancillary (enter results); Complete Time: 12:32 eb Administered Medications: 11:25 Drug: SOLU-Medrol 125 mg Route: IVP; Site: Port-a-cath; jl7 12:00 Follow up: Response: No adverse reaction jl7 11:30 Drug: Lasix 40 mg Route: IVP; Site: Port-a-cath; jl7 12:00 Follow up: Response: No adverse reaction jl7 11:33 Drug: Benadryl 25 mg Route: IVP; Site: Port-a-cath; jl7 12:00 Follow up: Response: No adverse reaction jl7 13:10 Drug: Phenergan 12.5 mg Route: IVP; Site: Port-a-cath; jl7 13:30 Follow up: Response: No adverse reaction; Nausea is decreased jl7 13:10 Drug: Tylenol 1000 mg Route: PO; jl7 13:54 Follow up: Response: No adverse reaction; Pain is decreased jl7 Disposition: 04/06/19 13:05 Discharged to Home. Impression: Localized swelling, mass and lump, lower limb, bilateral, Localized swelling, mass and lump, upper limb, bilateral. - Condition is Stable. - Discharge Instructions: Edema, [id number], Nausea, Adult, [id number], Foot Pain, Hand Pain. - Prescriptions for Lasix 20 mg Oral Tablet - take 1 tablet by ORAL route every 12 hours; 6 tablet. Medrol (Jackson) 4 mg Oral Tablets, Dose Pack - take 1 tablet by ORAL route as directed - follow package instructions; 1 packet. promethazine 25 mg Oral Tablet - take 1 tablet by ORAL route every 6 hours As needed; 20 tablet. - Medication Reconciliation Form, Thank You Letter, Work release form form. - Follow up: Valeria Sawant MD; When: 2 - 3 days; Reason: If symptoms return, Further diagnostic work-up, Recheck today's complaints, Continuance of care, Re-evaluation by your physician. - Problem is an ongoing problem. - Symptoms have improved. Signatures: Dispatcher [employer] EDMS Bakari Fairchild MD MD kdr Sanjuana Hall RN RN tw2 Elizabeth Bal RN RN jl7 Corrections: (The following items were deleted from the chart) 13:57 13:05 04/06/2019 13:05 Discharged to Home. Impression: Localized swelling, mass and jl7 lump, lower limb, bilateral; Localized swelling, mass and lump, upper limb, bilateral. Condition is Stable. Forms are Medication Reconciliation Form, Thank You Letter, Antibiotic Education, Prescription Opioid Use. Follow up: Valeria Sawant; When: 2 - 3 days; Reason: If symptoms return, Further diagnostic work-up, Recheck today's complaints, Continuance of care, Re-evaluation by your physician. Problem is an ongoing problem. Symptoms have improved. kdr
[2019-04-06] MEDS ORDERED: HEPARIN 500 UNIT/5 ML SYR IV ONE (13:38)
[2019-04-06 14:18] VITALS: BP 143/96; TEMP 98; O2SAT 98
== END 2019-04-06 13:57 | disposition home or self-care (01) ==
LOC: ER 09:41
DX: R22.33 Localized swelling, mass and lump, upper limb, bilateral (principal); F41.9 Anxiety disorder, unspecified; E06.3 Autoimmune thyroiditis; J45.909 Unspecified asthma, uncomplicated; Z88.0 Allergy status to penicillin; Z88.1 Allergy status to other antibiotic agents; Z88.8 Allergy status to other drugs, medicaments and biological substances
CPT/HCPCS: 85025; 80048; 36415; 81025; 85610; 85652; 81003; 86140; 93970; 96375; 96374; 99285; J2550; J1200; J1940; J1642; J2930

== ENCOUNTER 2019-04-16 18:17 | Emergency (ER) | payer OTHER ==
[2019-04-16] MEDS ORDERED: PROMETHAZINE 25 MG/ML VIAL ONE (19:04)
[2019-04-16] MEDS ORDERED: FENTANYL CITR 100 MCG/2 ML ONE ×2 (19:05→22:24)
[2019-04-16] MEDS ORDERED: NA CHLORIDE 0.9% 1,000 ML ONE (19:05)
[2019-04-16 19:19] LABS: Urine Blood NEGATIVE (NEG); Urine Glucose NEGATIVE (NEG); Urine Protein 1+ (NEG); Urine Specific Gravity >1.030 (1.005-1.030)
--- NOTE | 2019-04-16 19:42 | RAD REPORT ---
EXAM DESCRIPTION: RAD - Chest Pa And Lat (2 Views) - 04/16/2019 7:26 pm CLINICAL HISTORY: DYSPNEAshortness of breath COMPARISON: November 2018 TECHNIQUE: PA and lateral views of the chest were obtained. FINDINGS: The lungs are clear. Lung markings are similar to comparison. Left subclavian Port-A-Cath remains in place. Heart size is normal and central vasculature is within normal limits. No pleural effusion or pneumothorax seen. No acute bony finding noted. No aortic abnormality. IMPRESSION: No acute cardiopulmonary process. No significant interval change.
[2019-04-16] MEDS ORDERED: LORazepam 2 MG/ML VIAL ONE (19:46)
[2019-04-16 20:07] LABS: Basophils % 0.6 % (0-1.3); Hematocrit 42.2 % (36.0-45.0); Lymphocytes % 27.5 % (15.3-44.8); MPV 7.4 fL (7.6-11.3); RBC Red Blood Cell Count 4.81 M/uL (3.86-4.86)
[2019-04-16] MEDS ORDERED: NA CHLORIDE 0.9% 100 ML IV ONE (20:07)
[2019-04-16 20:28] LABS: Albumin 4.1 g/dL (3.4-5.0); Bilirubin Direct 0.3 mg/dL (0-0.2); Bilirubin Total 0.7 mg/dL (0.2-1.0); Potassium 3.6 mmol/L (3.5-5.1); Protein, Total 7.4 g/dL (6.4-8.2)
--- NOTE | 2019-04-16 22:10 | ER ---
Nurse's Notes [facility] Name: Maribel Soto Age: 54 yrs Sex: Female : 1965 Arrival Date: 04/16/2019 Time: 18:19 Bed 27 Private MD: Diagnosis: Nausea and vomiting;Unspecified abdominal pain Presentation: 04/16 18:21 Presenting complaint: Patient states: n/v, generalized swelling, SOB, constant pain on sv the left ribcage area and is worse with deep breathing started 1 month ago. Transition of care: patient was not received from another setting of care. Onset of symptoms was February 2019. Care prior to arrival: None. 18:21 Method Of Arrival: Ambulatory sv 18:21 Acuity: LILIAN 2 sv 20:50 Risk Assessment: Do you want to hurt yourself or someone else? Patient reports no mg2 desire to harm self or others. Initial Sepsis Screen: Does the patient meet any 2 criteria? No. Patient's initial sepsis screen is negative. Does the patient have a suspected source of infection? No. Patient's initial sepsis screen is negative. Triage Assessment: 20:50 General: Appears in no apparent distress. comfortable. Respiratory: Onset: The mg2 symptoms/episode began/occurred. Respiratory: Reports shortness of breath the patient has mild shortness of breath. 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 Historical: - Allergies: 18:23 BACLOFEN; sv 18:23 Bactrim; sv 18:23 Opana; sv 18:23 PENICILLINS; sv 18:23 Zofran; sv - Home Meds: 20:52 "Inhaler" [Active]; gabapentin Oral 3 times per day [Active]; morphine 10 mg Oral CERP mg2 1 cap every 12 hours [Active]; naratriptan Oral daily [Active]; oxymorphone Oral [Active]; Phenergan Oral 50 mg every 6 hours [Active]; sumatriptan succinate 6 mg/0.5 mL Sub-Q syrg as needed [Active]; - PMHx: 18:23 Anxiety; Asthma; Chronic pain; Diverticulitis; Fibromyalgia; Bryce; Lupus; sv Migraines; Seizures; Ulcers; - PSHx: 18:23 Hysterectomy; Appendectomy; Colon resection; sv - Immunization history:: Adult Immunizations up to date. - Social history:: Smoking status: unknown. - Ebola Screening: : No symptoms or risks identified at this time. Screenin:02 Abuse screen: Denies threats or abuse. Denies injuries from another. Nutritional mg2 screening: No deficits noted. Tuberculosis screening: No symptoms or risk factors identified. Fall Risk Secondary diagnosis (15 points) seizures, IV access (20 points). Assessment: 18:30 General: Appears uncomfortable, Behavior is cooperative, appropriate for age. Pain: tr5 Complains of pain in abdomen. Neuro: Level of Consciousness is awake, alert, obeys commands, Oriented to person, place, time, [place] are equal bilaterally. Cardiovascular: Heart tones present Rhythm is regular. Respiratory: Airway is patent Respiratory effort is even, unlabored, Respiratory pattern is regular, symmetrical, Breath sounds are clear. GI: No signs and/or symptoms were reported involving the gastrointestinal system. : No signs and/or symptoms were reported regarding the genitourinary system. EENT: No signs and/or symptoms were reported regarding the EENT system. Derm: No signs and/or symptoms reported regarding the dermatologic system. Musculoskeletal: No signs and/or symptoms reported regarding the musculoskeletal system. 20:49 Reassessment: patient had a seizure for about 30 sec while im accessing her portacath. mg2 interventions done, seizure precaution initiated. 22:31 Reassessment: Patient appears in no apparent distress at this time. Patient and/or tr5 family updated on plan of care and expected duration. Pain level reassessed. Patient is alert, oriented x 3, equal unlabored respirations, skin warm/dry/pink. Vital Signs: 18:24 BP 134 / 121; Pulse 106; Resp 20; Temp 97.6(O); Pulse Ox 97% ; Weight 72.57 kg; Height sv 5 ft. 9 in. (175.26 cm); 20:14 BP 104 / 90; Pulse 82; Resp 18; Pulse Ox 96% on R/A; mg2 18:24 Body Mass Index 23.63 (72.57 kg, 175.26 cm) sv ED Course: 18:19 Patient arrived in ED. mr 18:22 [facility]-C [facility]. kb 18:22 Bakari Fairchild MD is Attending Physician. kb 18:23 Triage completed. sv 18:25 Arm band placed on. sv 18:30 Bed in low position. Call light in reach. Side rails up X 1. tr5 18:48 Lazaro Zamorano, RN is Primary Nurse. tr5 19:25 Chest Pa And Lat (2 Views) XRAY In Process Unspecified. EDMS 19:50 Radiology exam delayed due to lab results not completed at this time. (BUN/Creatinine). vm2 20:02 No provider procedures requiring assistance completed. Accessed Port-a-Cath. using mg2 accessed w/ # 20 Barroso needle, 20G Nexia IV catheter ,sterile technique, per hospital protocol. Clean \\T\\ dry. Dressing intact. Good blood return. Flushes easily. 20:06 Radiology exam delayed due to lab results not completed at this time. (BUN/Creatinine). nj 20:22 Radiology exam delayed due to lab results not completed at this time. (BUN/Creatinine). nj 21:01 Abdomen In Process Unspecified. EDMS 22:59 IV discontinued. tr5 Administered Medications: 19:53 Drug: NS 0.9% 1000 ml Route: IV; Rate: 1000 ml; Site: Port-a-cath; tr5 19:53 Drug: Ativan 2 mg Route: IVP; Site: Port-a-cath; tr5 20:30 Follow up: Response: Marked relief of symptoms tr5 19:54 Drug: Phenergan 12.5 mg Route: IVP; Site: Port-a-cath; tr5 19:54 Drug: fentaNYL (PF) 25 mcg {Note: RASS:0.} Route: IVP; Site: Port-a-cath; tr5 20:30 Follow up: Response: Pain is decreased; RASS: Alert and Calm (0) tr5 20:13 Drug: Fosphenytoin 1 grams Route: IVPB; Site: Port-a-cath; mg2 22:30 Drug: fentaNYL (PF) 50 mcg {Note: RASS:0.} Route: IVP; Site: Port-a-cath; tr5 22:58 Drug: HEParin Flush 500 units Route: IVP; Site: Port-a-cath; tr5 Outcome: 22:09 Discharge ordered by . dez 22:58 Discharged to home via wheelchair, with family. tr5 22:58 Condition: stable 22:58 Discharge instructions given to patient, family, Instructed on discharge instructions, follow up and referral plans. medication usage, Demonstrated understanding of instructions, follow-up care, medications, Prescriptions given X 1. 22:59 Patient left the ED. tr5 Signatures: Dispatcher [employer] EDNydia Farias, Courtney Purcell, RN RN Snow Schreiber, Bea Styles [facility] Catarino Anderson RN RN [facility] Lazaro Zamorano RN RN tr5 Corrections: (The following items were deleted from the chart) 18:25 18:21 Acuity: LILIAN 3 sv sv 18:25 18:24 Pulse 106bpm; Resp 20bpm; Pulse Ox 97%; Temp 97.6F Oral; 72.57 kg; Height 5 ft. 9 sv in.; BMI: 23.6; sv
--- NOTE | 2019-04-16 22:10 | EDPHYS ---
Physician Documentation [facility] Name: Maribel Soto Age: 54 yrs Sex: Female : 1965 Arrival Date: 04/16/2019 Time: 18:19 Bed 27 Private MD: ED Physician Bakari Fairchild HPI: 04/16 20:44 This 54 yrs old Female presents to ER via Ambulatory with complaints of Flank kb Pain, Breathing Difficulty. 20:49 The patient presents with abdominal pain in the left upper quadrant, in the left lower kb quadrant. Onset: The symptoms/episode began/occurred 1 month(s) ago. The symptoms do not radiate. Associated signs and symptoms: Pertinent positives: nausea, vomiting. The symptoms are described as constant. Modifying factors: The symptoms are alleviated by nothing, the symptoms are aggravated by nothing. Severity of pain: At its worst the pain was moderate in the emergency department the pain is unchanged. The patient has not experienced similar symptoms in the past. The patient has not recently seen a physician. Pt reports left abd pain, left flank pain that is worse with deep inspiration for a month. Reports nausea and vomiting for 2 days. Unable to keep meds down. 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 mg2 Historical: - Allergies: 18:23 BACLOFEN; sv 18:23 Bactrim; sv 18:23 Opana; sv 18:23 PENICILLINS; sv 18:23 Zofran; sv - Home Meds: 20:52 "Inhaler" [Active]; gabapentin Oral 3 times per day [Active]; morphine 10 mg Oral CERP mg2 1 cap every 12 hours [Active]; naratriptan Oral daily [Active]; oxymorphone Oral [Active]; Phenergan Oral 50 mg every 6 hours [Active]; sumatriptan succinate 6 mg/0.5 mL Sub-Q syrg as needed [Active]; - PMHx: 18:23 Anxiety; Asthma; Chronic pain; Diverticulitis; Fibromyalgia; Bryce; Lupus; sv Migraines; Seizures; Ulcers; - PSHx: 18:23 Hysterectomy; Appendectomy; Colon resection; sv - Immunization history:: Adult Immunizations up to date. - Social history:: Smoking status: unknown. - Ebola Screening: : No symptoms or risks identified at this time. ROS: 20:43 Constitutional: Negative for fever, chills, and weight loss, ENT: Negative for injury, kb pain, and discharge, Neck: Negative for injury, pain, and swelling, Cardiovascular: Negative for chest pain, palpitations, and edema, Respiratory: Negative for shortness of breath, cough, wheezing, and pleuritic chest pain, Back: Negative for injury and pain, : Negative for injury, bleeding, discharge, and swelling, MS/Extremity: Negative for injury and deformity, Skin: Negative for injury, rash, and discoloration. 20:43 Abdomen/GI: Positive for abdominal pain, nausea and vomiting. 20:43 Neuro: Positive for headache. Exam: 20:43 Constitutional: This is a well developed, well nourished patient who is awake, alert, kb and in no acute distress. Head/Face: Normocephalic, atraumatic. Chest/axilla: Normal chest wall appearance and motion. Nontender with no deformity. No lesions are appreciated. Cardiovascular: Regular rate and rhythm with a normal S1 and S2. No gallops, murmurs, or rubs. Normal PMI, no JVD. No pulse deficits. Respiratory: Lungs have equal breath sounds bilaterally, clear to auscultation and percussion. No rales, rhonchi or wheezes noted. No increased work of breathing, no retractions or nasal flaring. Skin: Warm, dry with normal turgor. Normal color with no rashes, no lesions, and no evidence of cellulitis. MS/ Extremity: Pulses equal, no cyanosis. Neurovascular intact. Full, normal range of motion. Neuro: Awake and alert, GCS 15, oriented to person, place, time, and situation. Cranial nerves II-XII grossly intact. Motor strength 5/5 in all extremities. Sensory grossly intact. Cerebellar exam normal. Normal gait. 20:43 Abdomen/GI: Inspection: abdomen appears normal, Bowel sounds: normal, in all quadrants, Palpation: soft, in all quadrants, moderate abdominal tenderness, in the left upper quadrant and left lower quadrant. 20:43 Back: CVA tenderness, that is moderate, is noted on the left. Vital Signs: 18:24 BP 134 / 121; Pulse 106; Resp 20; Temp 97.6(O); Pulse Ox 97% ; Weight 72.57 kg; Height sv 5 ft. 9 in. (175.26 cm); 20:14 BP 104 / 90; Pulse 82; Resp 18; Pulse Ox 96% on R/A; mg2 18:24 Body Mass Index 23.63 (72.57 kg, 175.26 cm) sv MDM: 18:26 Patient medically screened. kb 20:42 Data reviewed: vital signs, nurses notes. Data interpreted: Pulse oximetry: on room air kb is 96 %. Interpretation: normal. 22:09 Counseling: I had a detailed discussion with the patient and/or guardian regarding: the kb historical points, exam findings, and any diagnostic results supporting the discharge/admit diagnosis, lab results, radiology results, the need for outpatient follow up, a family practitioner, to return to the emergency department if symptoms worsen or persist or if there are any questions or concerns that arise at home. 04/16 18:41 Order name: Basic Metabolic Panel; Complete Time: 20:31 kb 04/16 18:41 Order name: CBC with Diff; Complete Time: 20:14 kb 04/16 18:41 Order name: Hepatic Function; Complete Time: 20:31 kb 04/16 18:41 Order name: Lipase; Complete Time: 20:31 kb 04/16 19:13 Order name: Urine Dipstick--Ancillary (enter results); Complete Time: 19:21 ar5 04/16 19:13 Order name: Urine --Ancillary (enter results); Complete Time: 19:21 ar5 04/16 18:41 Order name: Chest Pa And Lat (2 Views) XRAY; Complete Time: 19:48 kb 04/16 20:49 Order name: Abdomen EDMS 04/16 18:41 Order name: IV Saline Lock; Complete Time: 21:14 kb 04/16 18:41 Order name: Labs collected and sent; Complete Time: 21:14 kb 04/16 19:45 Order name: Seizure Precautions; Complete Time: 20:12 evelia 04/16 21:43 Order name: PO challenge; Complete Time: 22:07 kb Administered Medications: 19:53 Drug: NS 0.9% 1000 ml Route: IV; Rate: 1000 ml; Site: Port-a-cath; tr5 19:53 Drug: Ativan 2 mg Route: IVP; Site: Port-a-cath; tr5 20:30 Follow up: Response: Marked relief of symptoms tr5 19:54 Drug: Phenergan 12.5 mg Route: IVP; Site: Port-a-cath; tr5 19:54 Drug: fentaNYL (PF) 25 mcg {Note: RASS:0.} Route: IVP; Site: Port-a-cath; tr5 20:30 Follow up: Response: Pain is decreased; RASS: Alert and Calm (0) tr5 20:13 Drug: Fosphenytoin 1 grams Route: IVPB; Site: Port-a-cath; mg2 22:30 Drug: fentaNYL (PF) 50 mcg {Note: RASS:0.} Route: IVP; Site: Port-a-cath; tr5 22:58 Drug: HEParin Flush 500 units Route: IVP; Site: Port-a-cath; tr5 Disposition: 04/17 07:25 Co-signature as Attending Physician, Bakari Fairchild MD I agree with the assessment and kdr plan of care. Disposition: 04/16/19 22:09 Discharged to Home. Impression: Nausea and vomiting, Unspecified abdominal pain. - Condition is Stable. - Discharge Instructions: Nausea and Vomiting, Adult, [id number], Abdominal Pain, Adult, [id number]. - Prescriptions for Phenergan 25 mg Rectal Suppository - insert 1 suppository by RECTAL route every 8 hours As needed; 12 suppository. - Medication Reconciliation Form, Thank You Letter, Antibiotic Education, Prescription Opioid Use form. - Follow up: Emergency Department; When: As needed; Reason: Worsening of condition. Follow up: Private Physician; When: 2 - 3 days; Reason: Recheck today's complaints, Continuance of care, Re-evaluation by your physician. Signatures: Dispatcher [employer] EDKS Nydia Wylie, PSYCHIATRIC ATTENDANT-C PSYCHIATRIC ATTENDANT-Courtney Dixon, JAYDEN RN Mj Dupree MD MD cha Rittger, Kevin, MD MD kdr Gardose, Michele, RN RN mg2 Rodriguez, Tommie, RN RN tr5 Corrections: (The following items were deleted from the chart) 04/16 19:48 19:46 Head Brain Wo Cont+CT.RAD.BRZ ordered. EDKS EDMS 20:48 19:49 Abdomen Pelvis W Con+CT.RAD.BRZ ordered. EDKS EDMS 22:59 22:09 04/16/2019 22:09 Discharged to Home. Impression: Nausea and vomiting; Unspecified tr5 abdominal pain. Condition is Stable. Forms are Medication Reconciliation Form, Thank You Letter, Antibiotic Education, Prescription Opioid Use. Follow up: Emergency Department; When: As needed; Reason: Worsening of condition. Follow up: Private Physician; When: 2 - 3 days; Reason: Recheck today's complaints, Continuance of care, Re-evaluation by your physician. kb
[2019-04-16] MEDS ORDERED: HEPARIN 500 UNIT/5 ML SYR IV ONE (22:48)
[2019-04-16 23:09] VITALS: TEMP 97.6
[2019-04-16 23:10] VITALS: BP 104/90; O2SAT 96
--- NOTE | 2019-04-19 14:05 | RAD REPORT ---
EXAM DESCRIPTION: Abdominal pain. Nausea and vomiting. TECHNIQUE: CT scan of the abdomen and pelvis was performed without intravenous contrast. 5 mm axial images were obtained along with coronal and sagittal reformatted images. DOSE OPTIMIZATION: This facility uses dose optimization techniques as appropriate to perform exams, including at least one of the following techniques: 1. Automated exposure control. 2. Adjustment of the mA and/or kV according to patient size (this includes techniques or standardized protocols for targeted exams where dose is matched to the indication/reason for exam, i.e. extremiti es or head). 3. Use of iterative reconstructive technique. INTRAVENOUS CONTRAST: None. COMPARISON: 03/24/2019. FINDINGS: Lung Bases: Normal. Liver: Normal. Spleen: Normal. Pancreas: Normal. Gallbladder: Normal. Adrenal Glands: Normal. Kidneys: Normal. Retroperitoneal Structures: Normal. Bowel Survey: There is increased stool throughout the colon. The distal ileum is unremarkable. Post appendectomy changes are demonstrated. There is evidence of previous partial colectomy within th e mid sigmoid colon, stable. Post gastroplasty changes are again noted. Uterus and Adnexa: Absent Urinary Bladder: Normal. Peritoneal Cavity: Normal. Mesenteric Structures: Normal. Abdominal Wall: No hernia. Bony Structures: No suspicious lesions. IMPRESSION: 1. Increased stool throughout the colon. Electronically signed by: Jonn Berger MD 04/16/2019 9:23 PM [facility] Due to temporary technical issues with the PACS/Fluency reporting system, reports are being signed by the in house radiologist as a courtesy to ensure prompt reporting. The interpreting radiologist is f ully responsible for the content of the report.
== END 2019-04-16 22:59 | disposition home or self-care (01) ==
LOC: ER 18:17
DX: R10.9 Unspecified abdominal pain (principal); F41.9 Anxiety disorder, unspecified; E06.3 Autoimmune thyroiditis; G40.909 Epilepsy, unspecified, not intractable, without status epilepticus; Z88.0 Allergy status to penicillin; Z88.1 Allergy status to other antibiotic agents; Z88.8 Allergy status to other drugs, medicaments and biological substances
CPT/HCPCS: 85025; 80048; 36415; 81025; 80076; 81003; 83690; 74176; 71046; 96375; 96374; 99284; J1165; J2550; J3010 ×2; J1642; J7030

== ENCOUNTER 2019-07-07 15:07 | Emergency (ER) | payer OTHER ==
[2019-07-07] MEDS ORDERED: METOCLOPRAMIDE 10 MG/2mL INJ ONE (17:22)
[2019-07-07] MEDS ORDERED: FENTANYL CITR 100 MCG/2 ML ONE ×2 (17:25→19:17)
[2019-07-07] MEDS ORDERED: NA CHLORIDE 0.9% 200 ML IV ONE (17:26)
[2019-07-07] MEDS ORDERED: FAMOTIDINE 20 MG/2 ML VIAL IV ONE (17:26)
[2019-07-07] MEDS ORDERED: LORazepam 2 MG/ML VIAL ONE (17:54)
--- NOTE | 2019-07-07 18:13 | RAD REPORT ---
EXAM DESCRIPTION: CT - Abdomen Pelvis Wo Contrast - 07/07/2019 6:03 pm CLINICAL HISTORY: Abdominal pain. diarrhea;Abd pain;Nausea / vomiting COMPARISON: Abdomen Pelvis Wo Contrast dated 04/16/2019 TECHNIQUE: CT imaging of the abdomen and pelvis was performed without contrast. Solid organ, bowel a nd vascular assessment is limited due to lack of IV and oral contrast. All CT scans are performed using dose optimization technique as appropriate and may include automated exposure control or mA/KV adjustment according to patient size. FINDINGS: The lower lung coburn are clear.Postsurgical changes of a gastric bypass are noted. The liver, spleen, pancreas, adrenal glands and kidneys are within normal limits for a limited non-co ntrast examination. No bowel obstruction, free air, free fluid or abscess. Moderate diffuse wall thickening affects the c olon. Appendectomy. Hysterectomy. The osseous structures are within normal limits. IMPRESSION: Mild diffuse wall thickening of the colon suspicious for colitis. A limited non-contrast examination was performed as detailed.
[2019-07-07 18:15] LABS: Absolute Lymphocytes (CBC) 1.5 K/uL (0.7-4.9); Basophils % 0.4 % (0-1.3); Hematocrit 38.5 % (36.0-45.0); Lymphocytes % 26.4 % (15.3-44.8); MPV 8.5 fL (7.6-11.3); RBC Red Blood Cell Count 4.45 M/uL (3.86-4.86)
[2019-07-07 18:24] LABS: Albumin 3.3 g/dL (3.4-5.0); Bilirubin Direct 0.1 mg/dL (0-0.2); Bilirubin Total 0.4 mg/dL (0.2-1.0); Magnesium 2.1 mg/dL (1.8-2.4); Protein, Total 7.3 g/dL (6.4-8.2)
[2019-07-07 18:34] LABS: Blood Morphology Comment NOT SEEN (NOT SEEN); Platelet Estimate ADEQ
--- NOTE | 2019-07-07 19:13 | ER ---
Nurse's Notes [facility] Name: Maribel Soto Age: 54 yrs Sex: Female : 1965 Arrival Date: 07/07/2019 Time: 15:08 Bed 27 Private MD: Diagnosis: Infectious gastroenteritis and colitis, unspecified Presentation: 07/07 15:31 Presenting complaint: Patient states: Fever since Friday. I also have Stomach cramps, ca1 diarrhea, vomiting and bloody stool. I have a seizure disorder and I had a seizure yesterday. I am in Gabapentin for neuropathy and seizures. But I can't keep anything down for the past few days. Transition of care: patient was not received from another setting of care. Onset of symptoms was July 07, 2019. Risk Assessment: Do you want to hurt yourself or someone else? Patient reports no desire to harm self or others. Initial Sepsis Screen: Does the patient meet any 2 criteria? No. Patient's initial sepsis screen is negative. Does the patient have a suspected source of infection? No. Patient's initial sepsis screen is negative. Care prior to arrival: None. 15:31 Method Of Arrival: Wheelchair ca1 15:31 Acuity: LILIAN 3 ca1 Triage Assessment: 18:11 General: Appears in no apparent distress. uncomfortable, Behavior is cooperative, ch appropriate for age. 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 - Coronavirus screen:: The patient has NOT traveled to [place] in the past 14 days. The patient has NOT had contact with known/suspected case of Coronavirus?. - Social history:: Smoking status: Patient denies any tobacco usage or history of. - Ebola Screening: : Patient negative for fever greater than or equal to 101.5 degrees Fahrenheit, and additional compatible Ebola Virus Disease symptoms Patient denies exposure to infectious person Patient denies travel to an Ebola-affected area in the 21 days before illness onset No symptoms or risks identified at this time. Screenin:00 Abuse screen: Denies threats or abuse. Denies injuries from another. Nutritional ch screening: No deficits noted. Tuberculosis screening: No symptoms or risk factors identified. Fall Risk None identified. Assessment: 17:10 Reassessment: Hina assesses line, good patency but poor blood return. IV site is safe ch to use, but will not draw blood. pt states that has happened before. will infuse medications thru IV line, Hina and danna to look for peripheral access for IV and blood. 17:37 General: Appears in no apparent distress. comfortable, Behavior is cooperative, ch appropriate for age, anxious. Pain: Complains of pain in abdomen Pain currently is 8 out of 10 on a pain scale. Neuro: No deficits noted. Respiratory: Airway is patent Respiratory effort is even, unlabored, Breath sounds are clear bilaterally. GI: Bowel sounds present X 4 quads. Abd is soft X 4 quads Abdomen is tender to palpation X 4 quads. GI: Reports diarrhea, nausea, vomiting. Derm: Skin is intact, Skin is dry, Skin is normal, pale. 17:46 Reassessment: pt had an episode of shaking/jerking/stiffening throughout her body, iw lasted approx 30 sec, occurred while laboratory secretary was attempting blood draw, no post-ictal period noted, VSS, RYANNE Craig notified, verbal order for Ativan 0.5 mg IVP now. 17:48 Reassessment: Patient appears in no apparent distress at this time. Patient and/or ch family updated on plan of care and expected duration. Pain level reassessed. Patient is alert, oriented x 3, equal unlabored respirations, skin warm/dry/pink. lab in room to attempt to get blood from pt. pt states she is always a very difficult stick. missed attempts by Hina, myself, and Danna on cameron upper arms and hands. tips of IV cath are intact, skin is pale and warm, pressure dressings applied to locations. 18:30 Reassessment: Patient appears in no apparent distress at this time. Patient and/or ch family updated on plan of care and expected duration. Pain level reassessed. Patient is alert, oriented x 3, equal unlabored respirations, skin warm/dry/pink. pt oob to restroom, both urine sample and stool sample collected in sterile cups. nether sample is contaminated. Mj Gan checks stool for blood, negative. pt has stool that is very loose, with some the consistency of mucous. Patient states feeling better. Patient states symptoms have improved. 19:51 Reassessment: Patient appears in no apparent distress at this time. Patient and/or family updated on plan of care and expected duration. Pain level reassessed. Patient is alert, oriented x 3, equal unlabored respirations, skin warm/dry/pink. pt medicated per orders, awaiting flagyl to finish prior to discharge. Vital Signs: 15:35 BP 112 / 91; Pulse 94; Resp 16 S; Temp 98.3(O); Pulse Ox 100% on R/A; Weight 113.4 kg ca1 (R); Height 5 ft. 9 in. (175.26 cm) (R); 16:30 BP 120 / 70; Pulse 90; Resp 16; Temp 98.8; Pulse Ox 97% on R/A; Pain 8/10; ch 17:39 BP 115 / 68; Pulse 84; Pulse Ox 98% on R/A; Pain 8/10; ch 18:59 BP 119 / 76; Pulse 84; Resp 16; Temp 98.6(O); Pulse Ox 99% on R/A; Pain 8/10; ch 15:35 Body Mass Index 36.92 (113.40 kg, 175.26 cm) ca1 ED Course: 15:08 Patient arrived in ED. as 15:34 Triage completed. ca1 15:35 Arm band placed on right wrist. ca1 15:42 Chen Hdez, JAYDEN is Primary Nurse. ch 15:53 Mj Quintana PA is PHCP. cp 15:53 Bakari Fairchild MD is Attending Physician. cp 16:45 No apparent distress. Resting quietly. ch 16:45 Accessed Port-a-Cath. using accessed w/ # 20 [place] needle, ,sterile technique, per hospital protocol. Clean \T\ dry. Dressing intact. Flushes easily. no blood return when drawing. pt states she can taste it when I flush it. pt states before they have had this issue with it. charge nurse notified, Hina states she will assess the site and line. 17:00 Patient has correct armband on for positive identification. Placed in gown. Bed in low ch position. Call light in reach. Side rails up X2. Pulse ox on. NIBP on. Warm blanket given. Verbal reassurance given. 17:00 No provider procedures requiring assistance completed. ch 18:12 CT Abd/Pelvis - Without Contrast Sent. ch 19:11 Baljit Joshi MD is Referral Physician. cp 20:20 IV discontinued, intact, bleeding controlled, No redness/swelling at site. Pressure ch dressing applied, Pt port a cath hep locked per physician orders. then needle removed, pressure held, and gauze placed and taped down. 20:41 Urine Dipstick--Ancillary (enter results) Sent. ch Administered Medications: 17:20 Drug: fentaNYL (PF) 25 mcg Route: IVP; Site: Port-a-cath; ch 18:00 Follow up: Response: No adverse reaction; Pain is decreased ch 17:20 Drug: Reglan 10 mg Route: IVP; Site: Port-a-cath; ch 19:32 Follow up: Response: No adverse reaction ch 17:20 Drug: Pepcid 20 mg Route: IVP; Site: Port-a-cath; ch 19:32 Follow up: Response: No adverse reaction; Marked relief of symptoms ch 17:53 Drug: Ativan 0.5 mg Route: IVP; Site: Port-a-cath; iw 19:31 Follow up: Response: No adverse reaction; Marked relief of symptoms ch 19:10 Drug: Ciprofloxacin 500 mg Route: PO; ch 20:06 Follow up: Response: No adverse reaction ch 19:15 Drug: metroNIDAZOLE 500 mg Volume: 100 ml; Route: IVPB; Infused Over: 30 mins; Site: Port-a-cath; 20:06 Follow up: IV Status: Completed infusion; IV Intake: 100ml ch 19:30 Drug: fentaNYL (PF) 25 mcg Route: IVP; Site: Port-a-cath; ch 20:06 Follow up: Response: No adverse reaction ch 20:00 Drug: Phenergan 25 mg Route: PO; ch 20:20 Follow up: Response: No adverse reaction; Pain is decreased ch 20:00 Drug: Bentyl 20 mg Route: PO; ch 20:20 Follow up: Response: No adverse reaction; Pain is decreased ch Intake: 20:06 IV: 100ml; Total: 100ml. ch Outcome: 19:12 Discharge ordered by MD. cp 20:20 Discharged to home via wheelchair, with family. ch 20:20 Condition: improved 20:20 Discharge instructions given to patient, Instructed on discharge instructions, follow up and referral plans. no drinking with medication, no driving heavy equipment, medication usage, Demonstrated understanding of instructions, follow-up care, medications, Prescriptions given X 4. 20:24 Patient left the ED. aa1 Signatures: Chen Hdez RN RN Kylie Tracy RN RN aa1 Cheryl Gomez Irene RN RN iw Mj Quintana PA PA cp Acob, Cheryl RN RN ca1 Corrections: (The following items were deleted from the chart) 22:17 21:00 IV discontinued, intact, bleeding controlled, No redness/swelling at site. ch Pressure dressing applied, Pt port a cath hep locked per physician orders. then needle removed, pressure held, and gauze placed and taped down. ch
[2019-07-07 19:14] LABS: Urine Blood NEGATIVE (NEG); Urine Glucose NEGATIVE (NEG); Urine Protein 1+ (NEG); Urine Specific Gravity >1.030 (1.005-1.030)
--- NOTE | 2019-07-07 19:14 | EDPHYS ---
Physician Documentation [facility] Name: Maribel Soto Age: 54 yrs Sex: Female : 1965 Arrival Date: 07/07/2019 Time: 15:08 Bed 27 Private MD: ED Physician Bakari Fairchild HPI: 07/07 16:20 This 54 yrs old Female presents to ER via Wheelchair with complaints of cp Fever, Abdominal Pain. 16:20 The patient presents with abdominal pain. cp 16:20 Onset: The symptoms/episode began/occurred 5 day(s) ago. cp 16:20 Associated signs and symptoms: Pertinent positives: nausea and vomiting, blood in cp stools, diarrhea, fever. The patient reports fever, not measured (subjective). Associated signs and symptoms: Pertinent positives: abdominal pain, Pertinent negatives: chest pain. 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 - Coronavirus screen:: The patient has NOT traveled to [place] in the past 14 days. The patient has NOT had contact with known/suspected case of Coronavirus?. - Social history:: Smoking status: Patient denies any tobacco usage or history of. - Ebola Screening: : Patient negative for fever greater than or equal to 101.5 degrees Fahrenheit, and additional compatible Ebola Virus Disease symptoms Patient denies exposure to infectious person Patient denies travel to an Ebola-affected area in the 21 days before illness onset No symptoms or risks identified at this time. ROS: 16:25 Constitutional: Positive for chills, poor PO intake, Negative for fever. cp 16:25 Eyes: Negative for injury, pain, redness, and discharge. cp 16:25 ENT: Negative for drainage from ear(s), ear pain, sore throat, difficulty swallowing, difficulty handling secretions. 16:25 Cardiovascular: Negative for chest pain. 16:25 Respiratory: Negative for cough, shortness of breath, wheezing. 16:25 Abdomen/GI: Positive for abdominal pain, nausea, diarrhea, Negative for constipation, black/tarry stool. 16:25 : Negative for urinary symptoms, flank pain. 16:25 Skin: Negative for rash. 16:25 Neuro: Negative for altered mental status, headache, weakness. 16:25 All other systems are negative. Exam: 16:33 Constitutional: The patient appears in no acute distress, alert, awake, non-toxic, well cp developed, well nourished, uncomfortable. 16:33 Head/Face: Normocephalic, atraumatic. cp 16:33 Eyes: Periorbital structures: appear normal, Conjunctiva: normal, no exudate, no injection, Sclera: no appreciated abnormality, Lids and lashes: appear normal, bilaterally. 16:33 ENT: External ear(s): are unremarkable, Nose: is normal, Mouth: Lips: moist, Oral mucosa: pink and intact, moist, Posterior pharynx: is normal, airway is patent, no erythema, no exudate. 16:33 Chest/axilla: Inspection: normal, Palpation: is normal, no crepitus, no tenderness. 16:33 Cardiovascular: Rate: normal, Rhythm: regular. 16:33 Respiratory: the patient does not display signs of respiratory distress, Respirations: normal, no use of accessory muscles, labored breathing, is not present, Breath sounds: are clear throughout, no decreased breath sounds. 16:33 Abdomen/GI: Inspection: abdomen appears normal, Bowel sounds: active, all quadrants, Palpation: soft, in all quadrants, moderate abdominal tenderness, in all quadrants, rebound tenderness, is not appreciated, voluntary guarding, is elicited in all quadrants. 16:33 Back: pain, is absent, ROM is normal. 16:33 Neuro: Orientation: to person, place \T\ time. Mentation: is normal, Motor: moves all fours, strength is normal. Vital Signs: 15:35 BP 112 / 91; Pulse 94; Resp 16 S; Temp 98.3(O); Pulse Ox 100% on R/A; Weight 113.4 kg ca1 (R); Height 5 ft. 9 in. (175.26 cm) (R); 16:30 BP 120 / 70; Pulse 90; Resp 16; Temp 98.8; Pulse Ox 97% on R/A; Pain 8/10; ch 17:39 BP 115 / 68; Pulse 84; Pulse Ox 98% on R/A; Pain 8/10; ch 18:59 BP 119 / 76; Pulse 84; Resp 16; Temp 98.6(O); Pulse Ox 99% on R/A; Pain 8/10; ch 15:35 Body Mass Index 36.92 (113.40 kg, 175.26 cm) ca1 MDM: 16:04 Patient medically screened. cp 16:30 Differential diagnosis: gastroenteritis, diverticulitis, gastritis, GI Bleed, cp pancreatitis, colitis. 19:11 Data reviewed: vital signs, nurses notes, lab test result(s), radiologic studies, CT cp scan, and as a result, I will discharge patient. 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 Response to treatment: the patient's symptoms have markedly improved after treatment. 07/07 16:16 Order name: Basic Metabolic Panel 07/07 16:16 Order name: CBC with Diff cp 07/07 16:16 Order name: Creatinine for Radiology 07/07 16:16 Order name: Hepatic Function cp 07/07 16:16 Order name: Lipase cp 07/07 16:16 Order name: Urine Microscopic Only cp 07/07 16:16 Order name: Magnesium cp 07/07 18:18 Order name: CBC with Automated Diff; Complete Time: 18:45 EDMS 07/07 18:28 Interpretation: Normal except: MN% 15.7. cp 07/07 18:25 Order name: Basic Metabolic Panel; Complete Time: 18:28 EDMS 07/07 18:29 Interpretation: Normal except: CL 109; GLUC 114; GFR 50. cp 07/07 18:25 Order name: Liver (Hepatic) Function; Complete Time: 18:28 EDMS 07/07 18:29 Interpretation: Normal except: ALB 3.3; GLOB 4.0; A/G 0.8. 07/07 18:25 Order name: Magnesium; Complete Time: 18:28 EDND 07/07 18:25 Order name: Lipase; Complete Time: 18:28 EDND 07/07 18:31 Order name: Stool Culture 07/07 18:31 Order name: CDIFF 07/07 17:35 Order name: CT Abd/Pelvis - Without Contrast 07/07 18:21 Order name: CT; Complete Time: 18:28 EDND 07/07 18:30 Interpretation: Report reviewed. 07/07 18:35 Order name: Manual Differential; Complete Time: 18:45 EDND 07/07 18:45 Interpretation: Normal except: BANDS [F] 2; MONO 12. 07/07 18:53 Order name: Urine Dipstick--Ancillary (enter results) 07/07 19:16 Order name: Urine Dipstick-Ancillary [facility] 07/07 19:52 Order name: Urine Microscopic Only [facility] 07/07 20:23 Order name: Creatinine (Radiology Only) [facility] 07/07 16:16 Order name: IV Saline Lock; Complete Time: 18:13 cp 07/07 16:16 Order name: Labs collected and sent; Complete Time: 18:13 cp 07/07 18:56 Order name: PO challenge; Complete Time: 19:31 cp Administered Medications: 17:20 Drug: fentaNYL (PF) 25 mcg Route: IVP; Site: Port-a-cath; ch 18:00 Follow up: Response: No adverse reaction; Pain is decreased ch 17:20 Drug: Reglan 10 mg Route: IVP; Site: Port-a-cath; ch 19:32 Follow up: Response: No adverse reaction ch 17:20 Drug: Pepcid 20 mg Route: IVP; Site: Port-a-cath; ch 19:32 Follow up: Response: No adverse reaction; Marked relief of symptoms ch 17:53 Drug: Ativan 0.5 mg Route: IVP; Site: Port-a-cath; iw 19:31 Follow up: Response: No adverse reaction; Marked relief of symptoms ch 19:10 Drug: Ciprofloxacin 500 mg Route: PO; ch 20:06 Follow up: Response: No adverse reaction ch 19:15 Drug: metroNIDAZOLE 500 mg Volume: 100 ml; Route: IVPB; Infused Over: 30 mins; Site: Port-a-cath; 20:06 Follow up: IV Status: Completed infusion; IV Intake: 100ml 19:30 Drug: fentaNYL (PF) 25 mcg Route: IVP; Site: Port-a-cath; 20:06 Follow up: Response: No adverse reaction 20:00 Drug: Phenergan 25 mg Route: PO; ch 20:20 Follow up: Response: No adverse reaction; Pain is decreased ch 20:00 Drug: Bentyl 20 mg Route: PO; 20:20 Follow up: Response: No adverse reaction; Pain is decreased Disposition: 07/08 07:07 Co-signature as Attending Physician, Bakari Fairchild MD I agree with the assessment and kdr plan of care. Disposition: 07/07/19 19:12 Discharged to Home. Impression: Infectious gastroenteritis and colitis, unspecified. - Condition is Stable. - Discharge Instructions: Food Choices to Help Relieve Diarrhea, Adult, Diarrhea, Adult, Colitis. - Prescriptions for Bentyl 20 mg Oral Tablet - take 1 tablet by ORAL route every 6 hours As needed; 30 tablet. Cipro 500 mg Oral Tablet - take 1 tablet by ORAL route every 12 hours for 10 days; 20 tablet. Metronidazole 500 mg Oral Tablet - take 1 tablet by ORAL route every 8 hours; 30 tablet. promethazine 25 mg Oral Tablet - take 1 tablet by ORAL route every 6 hours As needed; 20 tablet. - SBAR form, Medication Reconciliation Form, Thank You Letter, Antibiotic Education, Prescription Opioid Use form. - Follow up: Baljit Joshi MD; When: 1 - 2 days; Reason: Recheck today's complaints. - Problem is new. - Symptoms have improved. Signatures: Dispatcher [employer] EDND Chen Hdez RN RN Kylie Ríos RN RN aa1 Bakari Fairchild MD MD [facility] Hina Torrez RN RN iw Mj Quintana PA PA cp Acob, Cheryl, RN RN ca1 Corrections: (The following items were deleted from the chart) 07/07 20:24 19:12 07/07/2019 19:12 Discharged to Home. Impression: Infectious gastroenteritis and aa1 colitis, unspecified. Condition is Stable. Forms are SBAR form, Medication Reconciliation Form, Thank You Letter, Antibiotic Education, Prescription Opioid Use. Follow up: Baljit Joshi; When: 1 - 2 days; Reason: Recheck today's complaints. Problem is new. Symptoms have improved. cp
[2019-07-07] MEDS ORDERED: CIPROFLOXACIN HCL 500 MG TAB ONE (19:16)
[2019-07-07] MEDS ORDERED: METRONIDAZOLE 500mg IVPB 500 MG/100 ML BAG IV ONE (19:17)
[2019-07-07 19:51] LABS: Urine Amorphous Sediment 1+ /HPF (NONE SEEN); Urine Bacteria <20 /HPF (<20); Urine Culture Reflex Order NOT NEEDED; Urine Mucus 2+ /HPF (NONE SEEN); Urine RBC <5 /HPF (NONE SEEN)
[2019-07-07] MEDS ORDERED: DICYCLOMINE HCL 10 MG CAP ONE (20:02)
[2019-07-07] MEDS ORDERED: PROMETHAZINE 25 MG TABLET ONE (20:02)
[2019-07-08 12:14] LABS: C.diff Antigen/Toxin Ag neg : Tox neg (NEG : NEG)
[2019-07-09 01:32] VITALS: BP 119/76; TEMP 98.6; O2SAT 99
== END 2019-07-07 20:24 | disposition home or self-care (01) ==
LOC: ER 15:07
DX: A09 Infectious gastroenteritis and colitis, unspecified (principal); Z88.0 Allergy status to penicillin; Z88.8 Allergy status to other drugs, medicaments and biological substances
CPT/HCPCS: 96365; 87045; 85025; 80048; 36415; 83735; 80076; 87046; 87324; 83690; 87449; 74176; 96375; 99284; J2765; J3010 ×2; 81003; 81015; Q0169

== ENCOUNTER 2019-08-31 23:54 | Observation (INO) | payer OTHER ==
[2019-09-01] MEDS ORDERED: PROMETHAZINE INJ 25 MG/ML AMP ONE (00:02)
[2019-09-01] MEDS ORDERED: NA CHLORIDE 0.9% 1,000 ML ONE (00:03)
[2019-09-01] MEDS ORDERED: MORPHINE 4 MG/ML SYR ONE ×2 (00:03→01:54)
[2019-09-01 00:42] LABS: Absolute Lymphocytes (CBC) 0.9 K/uL (0.7-4.9); Basophils % 0.2 % (0-1.3); Hematocrit 39.3 % (36.0-45.0); MPV 7.8 fL (7.6-11.3); RBC Red Blood Cell Count 4.41 M/uL (3.86-4.86)
[2019-09-01 00:43] LABS: Potassium 3.5 mmol/L (3.5-5.1); Sodium Level 139 mmol/L (136-145)
[2019-09-01 00:45] LABS: Albumin 4.2 g/dL (3.4-5.0); BUN Blood Urea Nitrogen 21 mg/dL (7-18); Bicarbonate 26 mmol/L (21-32); Glucose Level 138 mg/dL (74-106); Lipase 59 U/L (73-393)
[2019-09-01 00:48] LABS: ALT/SGPT 16 U/L (12-78); AST/SGOT 13 U/L (15-37); Bilirubin Direct < 0.1 mg/dL (0-0.2)
[2019-09-01 00:49] LABS: Bilirubin Total 0.3 mg/dL (0.2-1.0)
[2019-09-01 00:50] LABS: Alkaline Phosphatase 125 U/L (45-117)
[2019-09-01] MEDS ORDERED: METHYLPREDNISOLONE 125 MG INJ ONE (02:13)
--- NOTE | 2019-09-01 02:15 | ER ---
Nurse's Notes [facility] Name: Maribel Soto Age: 54 yrs Sex: Female : 1965 Arrival Date: 08/31/2019 Time: 23:55 Bed 16 Private MD: Diagnosis: Generalized abdominal pain-developing illeus;Nausea and vomiting Presentation: 08/30 23:56 Chief complaint: Patient states: Abdominal pain with constant N/V for a few hours ll1 today. Happens once monthly on average. Coronavirus screen: Proceed with normal triage. Patient denies a cough. Patient denies shortness of breath or difficulty breathing. Patient denies measured and/or subjective temperature greater than 100.4F prior to today's visit. Patient denies travel on a cruise ship or to a country the [facility] currently lists as an affected area. Patient denies contact with known and/or suspected case of COVID-19. Ebola Screen: Patient denies travel to an Ebola-affected area in the 21 days before illness onset. Initial Sepsis Screen:. Risk Assessment: Do you want to hurt yourself or someone else? Patient reports no desire to harm self or others. Onset of symptoms was August 31, 2019. 23:56 Method Of Arrival: EMS: [facility] ll1 23:56 Acuity: LILIAN 3 ll1 08/31 00:01 Chief complaint: EMS states: 22G L FA. Phenergan 12.5mg given twice en route. Vitals ll1 stable for EMS. 00:03 Initial Sepsis Screen: Does the patient meet any 2 criteria? No. Patient's initial ll1 sepsis screen is negative. 02:36 Initial Sepsis Screen: Does the patient have a suspected source of infection? No. rv Patient's initial sepsis screen is negative. Historical: - Allergies: 08/30 23:59 BACLOFEN; ll1 23:59 Opana; ll1 23:59 PENICILLINS; ll1 23:59 Bactrim; ll1 23:59 Zofran; ll1 - PMHx: 23:59 Ulcers; Anxiety; Asthma; Chronic pain; Diverticulitis; Fibromyalgia; Bryce; Lupus; ll1 Migraines; Seizures; - PSHx: 23:59 Appendectomy; Hysterectomy; ll1 - Immunization history:: Flu vaccine status is unknown. - Social history:: Patient/guardian denies using alcohol, street drugs, tobacco products, Smoking status: Patient denies any tobacco usage or history of. Screenin/08 00:02 Abuse screen: Denies threats or abuse. Nutritional screening: No deficits noted. ll1 Tuberculosis screening: No symptoms or risk factors identified. Fall Risk IV access (20 points). Ambulatory Aid- None/Bed Rest/Nurse Assist (0 pts). Gait- Weak (10 pts.). Total Wooten Fall Scale indicates Low Risk Score (25-44 pts). Fall prevention measures have been instituted. Side Rails Up X 2 Placed close to Nursing Station Frequent Obs/Assesments occuring As available Patient and Family Educated on Fall Prevention Program and strategies. Assessment: 01:00 General: Appears in no apparent distress. uncomfortable, Behavior is restless. rv 01:00 Pain: Complains of pain in abdomen. Neuro: Level of Consciousness is awake, alert, rv obeys commands, Oriented to person, place, time, situation. Cardiovascular: Patient's skin is warm and dry. Respiratory: Airway is patent. GI: Abdomen is round non-distended, Pt is actively vomiting bile, Bowel sounds present X 4 quads. Abdomen is tender to palpation X 4 quads. Derm: Skin is intact. 02:39 Reassessment: Patient appears in no apparent distress at this time. Patient and/or rv family updated on plan of care and expected duration. Pain level reassessed. Patient is alert, oriented x 3, equal unlabored respirations, skin warm/dry/pink. PATIENT UPDATED BY Mayra REGARDING TEST RESULTS AND THE PLAN OF CARE. PATIENT AGREED. Vital Signs: 08/30 23:56 Pain 10/10; ll1 08/31 00:03 BP 169 / 101; Pulse 75; Resp 19; Pulse Ox 99% ; Pain 10/10; ll1 01:00 BP 138 / 97; Pulse 90; Resp 17; Pulse Ox 97% on R/A; rv 02:00 BP 130 / 87; Pulse 86; Resp 16; Pulse Ox 98% on R/A; rv 03:00 BP 128 / 100; Pulse 87; Resp 18; Pulse Ox 98% on R/A; oe 04:00 BP 115 / 58; Pulse 95; Resp 16; Temp 98.5; Pulse Ox 100% ; rv ED Course: 08/30 23:55 Patient arrived in ED. ll1 23:55 [facility]yl[facility]C [facility] kb 23:55 Kavon Mack MD is Attending Physician. kb 23:55 Servando Joel, JAYDEN is Primary Nurse. rv 23:57 Triage completed. ll1 0408 00:00 Arm band placed on Patient placed in an exam room, on a stretcher, on monitor technician, ll1 on pulse oximetry. 00:15 Report given to JEREMY PEREZ RN. ll1 01:00 No provider procedures requiring assistance completed. Maintain EMS IV. Dressing rv intact. Good blood return noted. Site clean \T\ dry. Gauge \T\ site: G22 LEFT FA. 01:51 CT Abd/Pelvis - IV Contrast Only In Process Unspecified. EDMS 02:14 Reece Lr MD is Hospitalizing Provider. kb 02:36 Patient has correct armband on for positive identification. Pulse ox on. NIBP on. rv 04:30 IV is patent, with fluids infusing freely, with good blood return, Patient admitted, IV rv remains in place. Administered Medications: 00:10 Drug: morphine 4 mg Route: IVP; Site: left forearm; rv 02:36 Follow up: Response: No adverse reaction; Pain is decreased; RASS: Alert and Calm (0) rv 00:11 Drug: Phenergan 12.5 mg Route: IVP; Site: left forearm; rv 02:37 Follow up: Response: Nausea is decreased rv 00:12 Drug: NS 0.9% 1000 ml Route: IV; Rate: 1000 ml; Site: left forearm; rv 02:37 Follow up: IV Status: Completed infusion; IV Intake: 1000ml rv 01:55 Drug: morphine 4 mg Route: IVP; Site: left forearm; rv 02:37 Follow up: Response: No adverse reaction; Marked relief of symptoms; Pain is decreased; rv RASS: Drowsy (-1) 02:17 Drug: SOLU-Medrol 125 mg Route: IVP; Site: left forearm; rv 02:37 Follow up: Response: No adverse reaction rv Intake: 02:37 IV: 1000ml; Total: 1000ml. rv Outcome: 02:14 Decision to Hospitalize by Provider. kb 04:30 Admitted to Med/surg accompanied by tech, via wheelchair, room 221, with chart, Report rv called to ZOHREH CARPENTER 04:30 Condition: good 04:30 Instructed on the need for admit. 04:41 Patient left the ED. rv Signatures: Dispatcher [employer] EDMayra Farias, DERIK CASTILLO-Cj Mota Ronaldo, RN RN rv Compa Harrison RN RN ll1
--- NOTE | 2019-09-01 02:15 | EDPHYS ---
Physician Documentation [facility] Name: Maribel Soto Age: 54 yrs Sex: Female : 1965 Arrival Date: 08/31/2019 Time: 23:55 Bed 16 Private MD: ED Physician Kavon Mack HPI: 08/31 01:19 This 54 yrs old Female presents to ER via EMS with complaints of Abdominal kb Pain. 01:19 The patient presents with abdominal pain that is diffuse. Onset: The symptoms/episode kb began/occurred 3 hour(s) ago. The symptoms do not radiate. Associated signs and symptoms: Pertinent positives: nausea and vomiting, Pertinent negatives: fever. The symptoms are described as constant. Modifying factors: The symptoms are alleviated by nothing, the symptoms are aggravated by nothing. Severity of pain: At its worst the pain was moderate in the emergency department the pain is unchanged. The patient has experienced similar episodes in the past. The patient has not recently seen a physician. 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 Reports kb this occurs about once a month. Historical: - Allergies: 08/30 23:59 BACLOFEN; ll1 23:59 Opana; ll1 23:59 PENICILLINS; ll1 23:59 Bactrim; ll1 23:59 Zofran; ll1 - PMHx: 23:59 Ulcers; Anxiety; Asthma; Chronic pain; Diverticulitis; Fibromyalgia; Bryce; Lupus; ll1 Migraines; Seizures; - PSHx: 23:59 Appendectomy; Hysterectomy; ll1 - Immunization history:: Flu vaccine status is unknown. - Social history:: Patient/guardian denies using alcohol, street drugs, tobacco products, Smoking status: Patient denies any tobacco usage or history of. ROS: 08/31 01:18 Constitutional: Negative for fever, chills, and weight loss, ENT: Negative for injury, kb pain, and discharge, Neck: Negative for injury, pain, and swelling, Cardiovascular: Negative for chest pain, palpitations, and edema, Respiratory: Negative for shortness of breath, cough, wheezing, and pleuritic chest pain, Back: Negative for injury and pain, MS/Extremity: Negative for injury and deformity, Skin: Negative for injury, rash, and discoloration, Neuro: Negative for headache, weakness, numbness, tingling, and seizure. Abdomen/GI: Positive for abdominal pain, nausea and vomiting, Negative for diarrhea, constipation, abdominal cramps, abdominal distension, anorexia. Exam: 01:18 Constitutional: This is a well developed, well nourished patient who is awake, alert, kb and in no acute distress. Head/Face: Normocephalic, atraumatic. ENT: Nares patent. No nasal discharge, no septal abnormalities noted. Tympanic membranes are normal and external auditory canals are clear. Oropharynx with no redness, swelling, or masses, exudates, or evidence of obstruction, uvula midline. Mucous membranes moist. Neck: Trachea midline, no thyromegaly or masses palpated, and no cervical lymphadenopathy. Supple, full range of motion without nuchal rigidity, or vertebral point tenderness. No Meningismus. Chest/axilla: Normal chest wall appearance and motion. Nontender with no deformity. No lesions are appreciated. Cardiovascular: Regular rate and rhythm with a normal S1 and S2. No gallops, murmurs, or rubs. Normal PMI, no JVD. No pulse deficits. Respiratory: Lungs have equal breath sounds bilaterally, clear to auscultation and percussion. No rales, rhonchi or wheezes noted. No increased work of breathing, no retractions or nasal flaring. Back: No spinal tenderness. No costovertebral tenderness. Full range of motion. Skin: Warm, dry with normal turgor. Normal color with no rashes, no lesions, and no evidence of cellulitis. MS/ Extremity: Pulses equal, no cyanosis. Neurovascular intact. Full, normal range of motion. Neuro: Awake and alert, GCS 15, oriented to person, place, time, and situation. Cranial nerves II-XII grossly intact. Motor strength 5/5 in all extremities. Sensory grossly intact. Cerebellar exam normal. Normal gait. 01:54 Abdomen/GI: Inspection: obese Bowel sounds: normal, in all quadrants, Palpation: soft, kb in all quadrants, mild abdominal tenderness, in the left upper quadrant and right lower quadrant, moderate abdominal tenderness, in the left lower quadrant. Vital Signs: 08/30 23:56 Pain 10/10; ll1 08/31 00:03 BP 169 / 101; Pulse 75; Resp 19; Pulse Ox 99% ; Pain 10/10; ll1 01:00 BP 138 / 97; Pulse 90; Resp 17; Pulse Ox 97% on R/A; rv 02:00 BP 130 / 87; Pulse 86; Resp 16; Pulse Ox 98% on R/A; rv 03:00 BP 128 / 100; Pulse 87; Resp 18; Pulse Ox 98% on R/A; oe 04:00 BP 115 / 58; Pulse 95; Resp 16; Temp 98.5; Pulse Ox 100% ; rv MDM: 08/30 23:55 Patient medically screened. kb 08/31 01:18 Data reviewed: vital signs, nurses notes. Data interpreted: Pulse oximetry: on room air kb is 99 %. Interpretation: normal. 02:13 Counseling: I had a detailed discussion with the patient and/or guardian regarding: the kb historical points, exam findings, and any diagnostic results supporting the discharge/admit diagnosis, lab results, radiology results, the need for further work-up and treatment in the hospital. Physician consultation: Reeec Lr MD was called at 02:13, regarding admission, to the medical/surgical unit. patient's condition, and will see patient shortly. 08/30 23:55 Order name: Basic Metabolic Panel; Complete Time: 00:52 kb 08/30 23:55 Order name: CBC with Diff; Complete Time: 00:48 kb 08/30 23:55 Order name: Hepatic Function; Complete Time: 00:52 kb 08/30 23:55 Order name: Lipase; Complete Time: 00:52 kb 08/31 03:31 Order name: CBC with Automated Diff EDMS 08/31 03:31 Order name: CBC with Automated Diff EDMS 08/31 00:52 Order name: CT Abd/Pelvis - IV Contrast Only kb 08/31 03:31 Order name: Comprehensive Metabolic Panel EDMS 08/31 03:31 Order name: Comprehensive Metabolic Panel EDMS 08/30 23:55 Order name: IV Saline Lock; Complete Time: 01:39 kb 08/30 23:55 Order name: Labs collected and sent; Complete Time: 01:39 kb 08/31 03:31 Order name: CONS Pharmacy Consult EDND 08/31 03:31 Order name: NPO EDMS Administered Medications: 00:10 Drug: morphine 4 mg Route: IVP; Site: left forearm; rv 02:36 Follow up: Response: No adverse reaction; Pain is decreased; RASS: Alert and Calm (0) rv 00:11 Drug: Phenergan 12.5 mg Route: IVP; Site: left forearm; rv 02:37 Follow up: Response: Nausea is decreased rv 00:12 Drug: NS 0.9% 1000 ml Route: IV; Rate: 1000 ml; Site: left forearm; rv 02:37 Follow up: IV Status: Completed infusion; IV Intake: 1000ml rv 01:55 Drug: morphine 4 mg Route: IVP; Site: left forearm; rv 02:37 Follow up: Response: No adverse reaction; Marked relief of symptoms; Pain is decreased; rv RASS: Drowsy (-1) 02:17 Drug: SOLU-Medrol 125 mg Route: IVP; Site: left forearm; rv 02:37 Follow up: Response: No adverse reaction rv Disposition: 05:16 Co-signature as Attending Physician, Kavon Mack MD. rn Disposition: 09/01/19 02:14 Hospitalization ordered by Reece Lr for Observation. Preliminary diagnosis are Generalized abdominal pain - developing illeus, Nausea and vomiting. - Bed requested for Telemetry/MedSurg (observation). - Status is Observation. rv - Condition is Stable. - Problem is new. - Symptoms are unchanged. Signatures: Dispatcher [employer] EDMS Nydia Wylie, SUPERINTENDENT TRANSMISSION-C SUPERINTENDENT TRANSMISSION-Ckb Kavon Mack MD MD rn Lasagna, Tonya RN RN tl1 Servando Joel, RN RN Compa Walden, RN RN ll1 Corrections: (The following items were deleted from the chart) 04:10 02:14 Hospitalization Ordered by Reece Lr MD for Observation. Preliminary tl1 diagnosis is Generalized abdominal pain - developing illeus; Nausea and vomiting. Bed requested for Telemetry/MedSurg (observation). Status is Observation. Condition is Stable. Problem is new. Symptoms are unchanged. kb 04:12 04:10 09/01/2019 02:14 Hospitalization Ordered by Reece Lr MD for Observation. tl1 Preliminary diagnosis is Generalized abdominal pain - developing illeus; Nausea and vomiting. Bed requested for Telemetry/MedSurg (observation). Status is Observation. Condition is Stable. Problem is new. Symptoms are unchanged. tl1 04:41 04:12 09/01/2019 02:14 Hospitalization Ordered by Reece Lr MD for Observation. rv Preliminary diagnosis is Generalized abdominal pain - developing illeus; Nausea and vomiting. Bed requested for Telemetry/MedSurg (observation). Status is Observation. Condition is Stable. Problem is new. Symptoms are unchanged. tl1
[2019-09-01] MEDS ORDERED: ONDANSETRON 4 MG/2 ML VIAL IV PRN (03:29)
[2019-09-01] MEDS ORDERED: ACETAMINOPHEN 500 MG TAB PO PRN (03:29)
[2019-09-01] MEDS ORDERED: TEMAZEPAM 15 MG CAP PO PRN (04:04)
[2019-09-01 04:50] VITALS: BMI 36.3
[2019-09-01] MEDS: NA CHLORIDE 0.9% 1,000 ML IV SCH ×3 (05:49→16:23)
[2019-09-01] MEDS: MORPHINE 2 MG/ML SYR IV PRN ×5 (05:49→21:37)
--- NOTE | 2019-09-01 08:56 | RAD REPORT ---
EXAM DESCRIPTION: CT - Abdomen Pelvis W Contrast - 09/01/2019 5:20 am CLINICAL HISTORY: The patient is 54 years old and is Female; ABD PAIN TECHNIQUE: Axial computed tomography images of the abdomen and pelvis with intravenous contrast. S agittal and coronal reformatted images were created and reviewed. This CT exam was performed using one or more of the following dose reduction techniques: automated exposure control, adjustment of t he mA and/or kV according to patient size, and/or use of iterative reconstruction technique. COMPARISON: CT of the abdomen and pelvis July 07, 2019 FINDINGS: LUNG BASES: Unremarkable. No mass. No consolidation. MEDIASTINUM: Matter scarring a small hiatal hernia is present. ABDOMEN: LIVER: Unremarkable. No mass. GALLBLADDER AND BILE DUCTS: No calcified stones. No ductal dilation. PANCREAS: The pancreas is atrophic. SPLEEN: Unremarkable. ADRENALS: Unremarkable. No mass. KIDNEYS AND URETERS: Unremarkable. The kidneys enhance symmetrically. No obstructing renal or ur eteral calculus is seen. No hydronephrosis or hydroureter. No perinephric fluid or stranding. STOMACH AND BOWEL: Postsurgical changes the level of the GE junction is noted. Postsurgical ch javier at the level of the rectosigmoid colon is present. The stomach is decompressed. Multiple mid to distal small bowel loops are fluid-filled. Postsurgical change of the small bowel within the right ab domen is present. A moderate to large amount of stool is present throughout the colon. Questionable thickening at the level of the ileocecal valve is noted. PELVIS: APPENDIX: No findings to suggest acute appendicitis. BLADDER: The bladder is not well distended. REPRODUCTIVE: The patient is status post hysterectomy. ABDOMEN and PELVIS: INTRAPERITONEAL SPACE: Unremarkable. No free air. No significant fluid collection. BONES/JOINTS: No acute fracture. SOFT TISSUES: The soft tissues are normal. VASCULATURE: Unremarkable. No abdominal aortic aneurysm. LYMPH NODES: Unremarkable. No enlarged lymph nodes. IMPRESSION: 1. Fluid-filled and minimally prominent mid to distal small bowel loops which may be s econdary to an enteritis and developing ileus. 2. Fullness at the level of the ileocecal valve which may be secondary to fluid and food contents. A discrete underlying mass is not seen. Correlation with patient's laboratory values is recommended. Direct visualization could be considered. 3. Moderate stool burden. Electronically signed by: Yohana Cherry MD 09/01/2019 1:59 AM CDT Due to temporary technical issues with the PACS/Fluency reporting system, reports are being signed by the in house radiologist as a courtesy to ensure prompt reporting. The interpreting radiologist is f ully responsible for the content of the report.
[2019-09-01] MEDS ORDERED: INFLUENZA VACCINE (for 3y+) 0.5 ML DOSE IMVAC ONE (09:00)
[2019-09-01] MEDS: clonazePAM 1 MG TAB PO SCH ×3 (09:00→21:42)
[2019-09-01] MEDS: HYOSCYAMINE SULF 0.125 MG TAB PO SCH ×3 (09:00→21:42)
[2019-09-01] MEDS: HYDROXYCHLOROQUINE 200MG TAB PO SCH ×2 (09:00→21:42)
[2019-09-01 11:35] VITALS: O2SAT 96
--- NOTE | 2019-09-01 12:05 | P.HP ---
Certification for Inpatient Patient admitted to: Observation With expected LOS: <2 Midnights Patient will require the following post-hospital care: None Practitioner: I am a practitioner with admitting privileges, knowledge of patient current condition, hospital course, and medical plan of care. Services: Services provided to patient in accordance with Admission requirements found in Title 42 Section 412.3 of the Code of Federal Regulations Patient History Date of Service: 09/01/19 Reason for admission: Ileus History of Present Illness: Patient is a 54-year-old female came to the hospital with abdominal pain. Patient has had multiple abdominal surgeries including gastric bypass surgery and then partial colectomy. She also had a reanastomosis of her colon. Patient states she has been having abdominal distension. She has been having nausea and vomiting. She is had no bowel movements nor has she had any flatus. She came into the ER for evaluation. In the emergency room she was found have an ileus on her imaging studies. She will be admitted to the hospital and made NPO. Gently hydrate her. She has a history of narcotic use and she could have gastroparesis secondary to narcotic use as well as constipation. Will give her a laxative when she starts moving her bowels. Allergies Penicillins Allergy (Intermediate, Verified 07/23/11 12:28) Hives/Rash baclofen Allergy (Verified 07/20/12 08:13) Itching/Hives/Rash oxymorphone [From Opana] Allergy (Unverified 09/12/15 10:48) Unknown ondansetron HCl [From Zofran] Adverse Reaction (Mild, Verified 04/21/12 13:08) vomitting eggs Allergy (Mild, Uncoded 09/03/13 20:07) Nausea/Vomiting Zo Allergy (Uncoded 05/27/15 12:56) Unknown Zofran (as hydrochloride) Allergy (Uncoded 09/24/14 11:28) Unknown Home Medications: Promethazine Tab [Phenergan*] 50 mg PO QID 11/21/12 Hyoscyamine Sulfate 0.125 mg PO PRN 04/03/13 Naratriptan HCl [Amerge] 2.5 mg PO BID PRN 04/03/13 Diphenhydramine [Benadryl*] 1 cap PO BID PRN 09/04/13 Hydroxychloroquine [Plaquenil*] 200 mg PO DAILY 09/04/13 Gabapentin 600 mg PO BEDTIME 09/01/19 Hydromorphone [Dilaudid*] 4 mg PO Q4H 09/01/19 - Past Medical/Surgical History Has patient received pneumonia vaccine in the past: Yes Diabetic: No -: lupus -: diverticulitis -: fibromyalgia -: chronic fatigue -: Hashimotos's hypothyroidism -: anxiety, depression, bi-polar -: chronic migraines -: neuropathy -: asthma -: seizures -: partial hysterectomy -: gastric bypass -: appendectomy -: hernia repair x2 -: bleeding ulcer -: gastric bypass repair -: port a cath left chest - Family History Father Medical History: Hypertension, Other (see notes) Notes: Colitis Mother Medical History: Other (see notes) Notes: Bad back - Social History Smoking Status: Never smoker Alcohol use: No CD- Drugs: No Caffeine use: Yes Place of Residence: Home Review of Systems 10-point ROS is otherwise unremarkable Physical Examination - Vital Signs Temperature: 98.3 F Blood Pressure: 137/81 Pulse: 80 Respirations: 20 Pulse Ox (%): 96 - Physical Exam General: Alert, In no apparent distress, Oriented x3 HEENT: Atraumatic, PERRLA, Mucous membr. moist/pink, EOMI, Sclerae nonicteric Neck: Supple, 2+ carotid pulse no bruit, No LAD, Without JVD or thyroid abnormality Respiratory: Clear to auscultation bilaterally, Normal air movement Cardiovascular: Regular rate/rhythm, Normal S1 S2, No murmurs Gastrointestinal: Hypoactive, Distended, Tenderness Musculoskeletal: No clubbing, No swelling, No tenderness Integumentary: No rashes Neurological: Normal gait, Normal speech, Normal strength at 5/5 x4 extr, Normal tone, Sensation intact, Cranial nerves 3-12 intact, Normal affect Lymphatics: No axilla or inguinal lymphadenopathy - Studies Laboratory Data (last 24 hrs) 09/01/19 00:13: WBC 9.4, Hgb 13.2, Hct 39.3, Plt Count 277 09/01/19 00:13: Sodium 139, Potassium 3.5, BUN 21 H, Creatinine 1.16, Glucose 138 H, Total Bilirubin 0.3, AST 13 L, ALT 16, Alkaline Phosphatase 125 H, Lipase 59 L Assessment & Plan - Problems (Diagnosis) (1) Ileus Current Visit: Yes Status: Acute (2) H/O major abdominal surgery Current Visit: Yes Status: Acute (3) Abdominal pain Current Visit: No Status: Active (4) Hypothyroidism Current Visit: No Status: Active (5) Systemic lupus erythematosus Current Visit: No Status: Active - Plan plan: 1. NPO 2. IV hydration 3. Hold off on narcotic 4. Outpatient GI study including gastric emptying study 5. Laxative if patient has a bowel movement or starts having flatus 6. Monitor electrolytes closely 7. GI and DVT prophylaxis Discharge Plan: Home Plan to discharge in: 48 Hours - Advance Directives Does patient have a Living Will: No Does patient have a Durable POA for Healthcare: No - Code Status/Comfort Care Code Status Assessed: Yes Code Status: Full Code Critical Care: No Time Spent Managing PTS Care (In Minutes): 45
[2019-09-01] MEDS: PROMETHAZINE INJ 25 MG/ML AMP IV PRN ×3 (12:30→21:36)
[2019-09-01] MEDS ORDERED: SUMATRIPTAN SUCC 6MG/0.5ML VIAL SQ ONE (17:00)
[2019-09-02] MEDS: MORPHINE 2 MG/ML SYR IV PRN ×2 (02:39→06:30)
[2019-09-02] MEDS: NA CHLORIDE 0.9% 1,000 ML IV SCH ×2 (02:39→10:00)
[2019-09-02 04:46] LABS: Absolute Lymphocytes (CBC) 1.2 K/uL (0.7-4.9); Basophils % 0.3 % (0-1.3); Hematocrit 33.5 % (36.0-45.0); Lymphocytes % 21.4 % (15.3-44.8); MPV 7.6 fL (7.6-11.3); RBC Red Blood Cell Count 3.74 M/uL (3.86-4.86)
[2019-09-02 04:55] LABS: Albumin 3.1 g/dL (3.4-5.0); Bilirubin Total 0.4 mg/dL (0.2-1.0); Potassium 3.4 mmol/L (3.5-5.1)
[2019-09-02] MEDS: PROMETHAZINE INJ 25 MG/ML AMP IV PRN (05:06)
[2019-09-02] MEDS ORDERED: BISACODYL E.C. 5 MG TAB PO SCH (06:00)
[2019-09-02] MEDS ORDERED: MORPHINE 2 MG/ML SYR IV PRN (07:35)
[2019-09-02] MEDS: HYOSCYAMINE SULF 0.125 MG TAB PO SCH ×2 (08:48→13:52)
[2019-09-02] MEDS: clonazePAM 1 MG TAB PO SCH ×2 (08:48→13:52)
[2019-09-02] MEDS ORDERED: MAGNESIUM HYDROXIDE 8% 30 ML PO SCH (09:00)
[2019-09-02] MEDS: HYDROXYCHLOROQUINE 200MG TAB PO SCH (09:25)
[2019-09-02 14:46] VITALS: BP 129/71; TEMP 98.7
--- NOTE | 2019-09-03 11:53 | P.DS ---
Discharge Date: 09/02/19 Disposition: ROUTINE DISCHARGE Discharge Condition: GOOD Reason for Admission: Ileus Consultations: Surgery - Problems (1) Ileus Status: Acute (2) H/O major abdominal surgery Status: Acute (3) Abdominal pain Status: Active (4) Hypothyroidism Status: Active (5) Systemic lupus erythematosus Status: Active Brief History of Present Illness: Patient is a 54-year-old female came to the hospital with abdominal pain. Patient has had multiple abdominal surgeries including gastric bypass surgery and then partial colectomy. She also had a reanastomosis of her colon. Patient states she has been having abdominal distension. She has been having nausea and vomiting. She is had no bowel movements nor has she had any flatus. She came into the ER for evaluation. In the emergency room she was found have an ileus on her imaging studies. She will be admitted to the hospital and made NPO. Gently hydrate her. She has a history of narcotic use and she could have gastroparesis secondary to narcotic use as well as constipation. Will give her a laxative when she starts moving her bowels. Hospital Course: Patient had a BM, and she was tolerating her diet. She was given a laxative when helped her but the concern is that with her chronic use of narcotics she has developed gastroparesis related to the use of narcotic and chronic constipation. She will need this addressed per her pain specialist as well as her GI physician; otherwise this will be a chronic condition going forward. Vital Signs/Physical Exam: Temp Pulse Resp BP Pulse Ox 98.7 F 74 18 129/71 96 09/02/19 12:00 09/02/19 12:00 09/02/19 12:00 09/02/19 12:09/02/19 12:00 General: Alert, In no apparent distress, Oriented x3 Laboratory Data at Discharge: WBC 5.5 K/uL (4.3-10.9) D 09/02/19 04:20 Hgb 11.2 g/dL (12.0-15.0) L 09/02/19 04:20 Hct 33.5 % (36.0-45.0) L 09/02/19 04:20 Plt Count 253 K/uL (152-406) 09/02/19 04:20 Sodium 144 mmol/L (136-145) 09/02/19 04:20 Potassium 3.4 mmol/L (3.5-5.1) L 09/02/19 04:20 BUN 15 mg/dL (7-18) 09/02/19 04:20 Creatinine 0.82 mg/dL (0.55-1.3) 09/02/19 04:20 Glucose 94 mg/dL (74-106) 09/02/19 04:20 Total Bilirubin 0.4 mg/dL (0.2-1.0) 09/02/19 04:20 AST 13 U/L (15-37) L 09/02/19 04:20 ALT 11 U/L (12-78) L 09/02/19 04:20 Alkaline Phosphatase 86 U/L (45-117) 09/02/19 04:20 Lipase 59 U/L (73-393) L 09/01/19 00:13 Home Medications: Promethazine Tab [Phenergan*] 50 mg PO QID 11/21/12 Hyoscyamine Sulfate 0.125 mg PO PRN 04/03/13 Naratriptan HCl [Amerge] 2.5 mg PO BID PRN 04/03/13 Diphenhydramine [Benadryl*] 1 cap PO BID PRN 09/04/13 Hydroxychloroquine [Plaquenil*] 200 mg PO DAILY 09/04/13 Gabapentin 600 mg PO BEDTIME 09/01/19 Hydromorphone [Dilaudid*] 4 mg PO Q4H 09/01/19 Patient Discharge Instructions: OK TO DC IV AND DC HOME. FOLLOW-UP WITH PRIMARY CARE PROVIDER IN 1-2 WEEKS. FOLLOW-UP WITH CARDIOLOGY IN 1-2 WEEKS. RETURN TO THE ER IF SYMPTOMS WORSENS. CALL DR. STONE AT [phone] IF ANY QUESTIONS REGARDING HOSPITAL STAY. PLEASE CALL THE FLOOR AT [phone] IF ANY MEDICATION OR NURSING QUESTIONS. Diet: [place] Activity: Fall precautions Followup: Tom Johnston MD [ACTIVE - CAN ADMIT] - 1-2 Weeks Time spent managing pt's care (in minutes): 20
== END 2019-09-02 15:22 | disposition home or self-care (01) ==
LOC: ER 23:54 → ERHOLD 09-01 03:33 → 2ND 09-01 04:29
PROVIDERS: ADMIT Hospitalist; ATTEND Hospitalist
DX: K56.7 Ileus, unspecified (principal); M32.9 Systemic lupus erythematosus, unspecified; M79.7 Fibromyalgia; R53.82 Chronic fatigue, unspecified; E06.3 Autoimmune thyroiditis; G43.909 Migraine, unspecified, not intractable, without status migrainosus; G62.9 Polyneuropathy, unspecified; J45.909 Unspecified asthma, uncomplicated; R56.9 Unspecified convulsions; F41.9 Anxiety disorder, unspecified; F32.9 Major depressive disorder, single episode, unspecified; F31.9 Bipolar disorder, unspecified; Z98.0 Intestinal bypass and anastomosis status; Z90.49 Acquired absence of other specified parts of digestive tract; Z98.84 Bariatric surgery status; Z79.891 Long term (current) use of opiate analgesic; Z88.0 Allergy status to penicillin; Z88.6 Allergy status to analgesic agent; Z88.8 Allergy status to other drugs, medicaments and biological substances; Z91.012 Allergy to eggs; Z83.79 Family history of other diseases of the digestive system; Z82.49 Family history of ischemic heart disease and other diseases of the circulatory system
CPT/HCPCS: 36415; 74177; 80048; 80053; 80076; 83690; 85025; 96361; 96374; 96375; 99285; G0378; J2270; J2550; J2930; J3030; J7030; Q9967

== ENCOUNTER 2019-11-07 13:35 | Emergency (ER) | payer OTHER ==
--- NOTE | 2019-11-07 16:04 | RAD REPORT ---
EXAM DESCRIPTION: RAD - Chest Single View - 11/07/2019 3:12 pm CLINICAL HISTORY: MALAISE COMPARISON: Chest exam March 2019 TECHNIQUE: AP portable chest image was obtained 11/07/2019 3:12 pm . FINDINGS: Lung volumes are low. No peripheral mass or consolidation. No failure or volume overload s uspected. Interstitial pattern not substantially different from comparison when adjusting for the aff ects of low lung volumes. Right-sided Port-A-Cath has been placed since prior imaging. The left-side catheter was removed. Heart and vasculature are normal. No measurable pleural effusion and no pneumothorax. No acute bony abnormality seen. No acute aortic findings suspected. IMPRESSION: Low lung volume accentuates interstitial pattern. No worrisome change from prior imaging .
[2019-11-07] MEDS ORDERED: HYDROMORPHONE ORAL 4 MG TAB ONE (16:21)
[2019-11-07] MEDS ORDERED: CIPROFLOXACIN HCL 500 MG TAB ONE (16:22)
[2019-11-07] MEDS ORDERED: PROMETHAZINE INJ 25 MG/ML AMP ONE (16:27)
[2019-11-07 16:34] LABS: Urine Blood NEGATIVE (NEG); Urine Glucose NEGATIVE (NEG); Urine Protein NEGATIVE (NEG); Urine Specific Gravity 1.015 (1.005-1.030)
[2019-11-07] MEDS ORDERED: CLINDAMYCIN IV 150 MG/ML (4 mL) VIAL ONE (16:40)
[2019-11-07 17:26] LABS: Absolute Lymphocytes (CBC) 1.9 K/uL (0.7-4.9); Basophils % 0.5 % (0-1.3); Hematocrit 42.7 % (36.0-45.0); Lymphocytes % 21.8 % (15.3-44.8); MPV 8.3 fL (7.6-11.3); RBC Red Blood Cell Count 4.78 M/uL (3.86-4.86)
[2019-11-07 17:31] LABS: Albumin 4.1 g/dL (3.4-5.0); Bilirubin Total 0.3 mg/dL (0.2-1.0); Protein, Total 8.1 g/dL (6.4-8.2)
[2019-11-07 17:37] LABS: Potassium 4.4 mmol/L (3.5-5.1)
--- NOTE | 2019-11-07 17:53 | ER ---
Nurse's Notes [facility] Name: Maribel Soto Age: 54 yrs Sex: Female : 1965 Arrival Date: 11/07/2019 Time: 13:37 Bed 17 Private MD: Diagnosis: Cellulitis and acute lymphangitis of trunk-mild at port -a - cath site Presentation: 11/06 14:11 Chief complaint: Patient states: on Friday she had port-a-cath removed from left side iw of chest and a new one placed in right side of chest, has had pain, redness, mild swelling to area since then. Coronavirus screen: Proceed with normal triage. Patient denies a cough. Patient denies shortness of breath or difficulty breathing. Patient denies measured and/or subjective temperature greater than 100.4F prior to today's visit. Patient denies travel on a cruise ship or to a country the [facility] currently lists as an affected area. Patient denies contact with known and/or suspected case of COVID-19. Ebola Screen: Patient negative for fever greater than or equal to 101.5 degrees Fahrenheit, and additional compatible Ebola Virus Disease symptoms Patient denies exposure to infectious person. Patient denies travel to an Ebola-affected area in the 21 days before illness onset. No symptoms or risks identified at this time. Initial Sepsis Screen: Does the patient meet any 2 criteria? No. Patient's initial sepsis screen is negative. Does the patient have a suspected source of infection? No. Patient's initial sepsis screen is negative. Risk Assessment: Do you want to hurt yourself or someone else? Patient reports no desire to harm self or others. Onset of symptoms was November 05, 2019. 14:11 Method Of Arrival: Ambulatory iw 14:11 Acuity: LILIAN 3 iw Historical: - Allergies: 14:20 BACLOFEN; iw 14:20 Bactrim; iw 14:20 Opana; iw 14:20 PENICILLINS; iw 14:20 Zofran; iw - Home Meds: 14:20 zonisamide 100 mg oral cap 1 cap once daily [Active]; Plaquenil 200 mg Oral tab 2 times iw per day [Active]; promethazine 50 mg Oral tab 1 tab every 6 hours [Active]; naratriptan 2.5 mg oral tab 1 tab [Active]; sumatriptan succinate 6 mg/0.5 mL Sub-Q pnij [Active]; dicyclomine 20 mg Oral tab 1 tab 3 times per day [Active]; hydromorphone 4 mg Oral tab 1 tab every 4 hours [Active]; tizanidine 4 mg oral tab 1 tab every 8 hours [Active]; Lunesta 2 mg oral tab 1 tab once daily [Active]; hyoscyamine sulfate 0.125 mg/mL oral drop 1 mL 4 times per day [Active]; Flovent Inhl twice a day [Active]; furosemide 20 mg Oral tab 1 tab once daily [Active]; Synthroid 200 mcg Oral tab once daily [Active]; - PMHx: 14:20 Anxiety; Asthma; Chronic pain; Diverticulitis; Fibromyalgia; Bryce; Lupus; iw Migraines; Seizures; Ulcers; - PSHx: 14:20 Appendectomy; Hysterectomy; iw - Immunization history:: Adult Immunizations up to date. Screenin:06 Abuse screen: Denies threats or abuse. Nutritional screening: No deficits noted. rb1 Tuberculosis screening: No symptoms or risk factors identified. Fall Risk None identified. Assessment: 14:06 General: Appears in no apparent distress. comfortable, Behavior is calm, cooperative, rb1 Reports Had a port on the left anterior chest wall removed and had a new port placed on the right anterior chest wall on Friday. Denies fever. Pain: Complains of pain in anterior aspect of right upper chest Pain currently is 10 out of 10 on a pain scale. Pain began Friday. Neuro: Level of Consciousness is awake, alert, obeys commands, Oriented to person, place, time, situation. Cardiovascular: Capillary refill < 3 seconds. Respiratory: Airway is patent Respiratory effort is even, unlabored, Respiratory pattern is regular, symmetrical. GI: Reports nausea, vomiting. : No signs and/or symptoms were reported regarding the genitourinary system. Derm: Surgical incision noted to the right upper chest. Port was placed on Friday. Musculoskeletal: Range of motion: intact in all extremities. 15:10 Reassessment: Patient appears in no apparent distress at this time. No changes from rb1 previously documented assessment. 16:25 Reassessment: Pt. vomited after swallowing the medication, the Clindamycin 150 mg rb1 capsules x 2 and the Dilaudid 4 mg tablet was in the emesis. Received verbal order from Dr. Camacho for Phenergan 25 mg IM x 1. 17:10 Reassessment: Lab was here for blood draw. Labs were sent. rb1 17:21 Reassessment: Patient appears in no apparent distress at this time. Patient and/or rb1 family updated on plan of care and expected duration. Pain level reassessed. Patient is alert, oriented x 3, equal unlabored respirations, skin warm/dry/pink. 17:58 Reassessment: Pt. wants to speak with the provider. rb1 Vital Signs: 14:20 BP 91 / 72; Pulse 83; Resp 16; Pulse Ox 99% on R/A; iw 15:20 BP 127 / 79; Pulse 76; Resp 16; Pulse Ox 100% on R/A; rb1 16:20 BP 130 / 88; Pulse 79; Resp 18; Temp 98.4; Pulse Ox 98% on R/A; rb1 17:20 BP 116 / 81; Pulse 86; Resp 19; Temp 98.5(TE); Pulse Ox 98% ; rb1 18:11 BP 135 / 88; Pulse 82; Resp 17; Pulse Ox 99% on R/A; rb1 ED Course: 13:37 Patient arrived in ED. as 14:06 Patient has correct armband on for positive identification. Bed in low position. Call rb1 light in reach. Side rails up X 1. Pulse ox on. NIBP on. Warm blanket given. 14:06 Arm band placed on right wrist. rb1 14:07 Liset De Jesus, RN is Primary Nurse. rb1 14:11 Mj Camacho MD is Attending Physician. evelia 14:14 Triage completed. iw 15:10 called [phone] Miach Urias with Dr. Camacho for patient eb consultation. 15:12 Chest Single View XRAY In Process Unspecified. EDMS 18:20 No provider procedures requiring assistance completed. Patient did not have IV access rb1 during this emergency room visit. Administered Medications: 15:46 Not Given (Duplicate Order): Clindamycin 900 mg IVPB once over 30 mins; (mix in 50 mL) evelia 15:49 Not Given (provider changed order to PO meds): NS 0.9% 1000 ml IV at 1 bolus Per rb1 protocol; 1000 mL bolus 16:20 Drug: Cipro 500 mg Route: PO; rb1 16:26 Follow up: Pt. vomited right after taking the medication, but the pill was not in the rb1 emesis. Provider notified. 16:20 Drug: Clindamycin 300 mg Route: PO; rb1 16:26 Follow up: Pt. vomited right after she took the medication. Provider notified. rb1 16:24 Drug: Phenergan 25 mg Route: IM; Site: left deltoid; rb1 16:50 Follow up: Response: No adverse reaction; Nausea is decreased rb1 16:49 Drug: Clindamycin 600 mg {Note: and left gluteus.} Route: IM; Site: right gluteus; rb1 17:03 Follow up: Response: No adverse reaction rb1 18:12 Drug: Dilaudid 1 mg Route: IM; Site: right deltoid; rb1 18:13 Follow up: Response: Medication administered at discharge.; Pt. has transportation rb1 home, she is not driving Intake: Outcome: 17:52 Discharge ordered by . evelia 18:20 Patient left the ED. rb1 18:20 Discharged to home ambulatory, with family. rb1 18:20 Condition: stable 18:20 Discharge instructions given to patient, Instructed on discharge instructions, follow up and referral plans. medication usage, Demonstrated understanding of instructions, follow-up care, medications, Prescriptions given X 3. Signatures: Dispatcher [employer] EDMS Mj Camacho MD MD cha Martinez, Amelia as Williams, Irene, Liset Valdez RN, RN RN [facility] Brittney Mcdowell Corrections: (The following items were deleted from the chart) 17:28 16:20 BP 130 / 88; Pulse 79bpm; Resp 18bpm; Pulse Ox 98% RA; rb1 rb1 18:15 16:20 Clindamycin 300 mg PO rb1 rb1 18:15 18:13 Pt. vomited right after she took medication. Provider notified. rb1 rb1 18:22 18:20 Patient left the ED. rb1 rb1
--- NOTE | 2019-11-07 17:53 | EDPHYS ---
Physician Documentation [facility] Name: Maribel Soto Age: 54 yrs Sex: Female : 1965 Arrival Date: 11/07/2019 Time: 13:37 Bed 17 Private MD: ED Physician Mj Camacho HPI: 11/06 14:58 This 54 yrs old Female presents to ER via Ambulatory with complaints of evelia problem w/port. 14:58 The patient or guardian reports chest pain that is located primarily in the anterior evelia chest wall. Onset: The symptoms/episode began/occurred 3 day(s) ago. The pain does not radiate. Associated signs and symptoms: The patient has no apparent associated signs or symptoms. The chest pain is described as red , tender right chest wall. Duration: The patient or guardian reports a single episode, that is still ongoing, and worsening. Modifying factors: The symptoms are alleviated by remaining still, the symptoms are aggravated by movement, palpation of area. Severity of pain: At its worst the pain was mild moderate in the emergency department the pain is unchanged. The patient has not experienced similar symptoms in the past. Historical: - Allergies: 14:20 BACLOFEN; iw 14:20 Bactrim; iw 14:20 Opana; iw 14:20 PENICILLINS; iw 14:20 Zofran; iw - Home Meds: 14:20 zonisamide 100 mg oral cap 1 cap once daily [Active]; Plaquenil 200 mg Oral tab 2 times iw per day [Active]; promethazine 50 mg Oral tab 1 tab every 6 hours [Active]; naratriptan 2.5 mg oral tab 1 tab [Active]; sumatriptan succinate 6 mg/0.5 mL Sub-Q pnij [Active]; dicyclomine 20 mg Oral tab 1 tab 3 times per day [Active]; hydromorphone 4 mg Oral tab 1 tab every 4 hours [Active]; tizanidine 4 mg oral tab 1 tab every 8 hours [Active]; Lunesta 2 mg oral tab 1 tab once daily [Active]; hyoscyamine sulfate 0.125 mg/mL oral drop 1 mL 4 times per day [Active]; Flovent Inhl twice a day [Active]; furosemide 20 mg Oral tab 1 tab once daily [Active]; Synthroid 200 mcg Oral tab once daily [Active]; - PMHx: 14:20 Anxiety; Asthma; Chronic pain; Diverticulitis; Fibromyalgia; Bryce; Lupus; iw Migraines; Seizures; Ulcers; - PSHx: 14:20 Appendectomy; Hysterectomy; iw - Immunization history:: Adult Immunizations up to date. ROS: 14:59 Constitutional: Negative for fever, chills, and weight loss, Eyes: Negative for injury, evelia pain, redness, and discharge, ENT: Negative for injury, pain, and discharge, Neck: Negative for injury, pain, and swelling, Cardiovascular: Negative for chest pain, palpitations, and edema, Respiratory: Negative for shortness of breath, cough, wheezing, and pleuritic chest pain, Abdomen/GI: Negative for abdominal pain, nausea, vomiting, diarrhea, and constipation, Back: Negative for injury and pain, : Negative for injury, bleeding, discharge, and swelling, MS/Extremity: Negative for injury and deformity, Neuro: Negative for headache, weakness, numbness, tingling, and seizure, Psych: Negative for depression, anxiety, suicide ideation, homicidal ideation, and hallucinations, Allergy/Immunology: Negative for hives, rash, and allergies, Endocrine: Negative for neck swelling, polydipsia, polyuria, polyphagia, and marked weight changes, Hematologic/Lymphatic: Negative for swollen nodes, abnormal bleeding, and unusual bruising. 14:59 Skin: Positive for cellulitis, swelling, of the anterior aspect of right upper chest. Exam: 14:59 Constitutional: This is a well developed, well nourished patient who is awake, alert, evelia and in no acute distress. Head/Face: Normocephalic, atraumatic. Eyes: Pupils equal round and reactive to light, extra-ocular motions intact. Lids and lashes normal. Conjunctiva and sclera are non-icteric and not injected. Cornea within normal limits. Periorbital areas with no swelling, redness, or edema. ENT: Nares patent. No nasal discharge, no septal abnormalities noted. Tympanic membranes are normal and external auditory canals are clear. Oropharynx with no redness, swelling, or masses, exudates, or evidence of obstruction, uvula midline. Mucous membranes moist. Neck: Trachea midline, no thyromegaly or masses palpated, and no cervical lymphadenopathy. Supple, full range of motion without nuchal rigidity, or vertebral point tenderness. No Meningismus. Chest/axilla: Normal chest wall appearance and motion. Nontender with no deformity. No lesions are appreciated. Cardiovascular: Regular rate and rhythm with a normal S1 and S2. No gallops, murmurs, or rubs. Normal PMI, no JVD. No pulse deficits. Respiratory: Lungs have equal breath sounds bilaterally, clear to auscultation and percussion. No rales, rhonchi or wheezes noted. No increased work of breathing, no retractions or nasal flaring. Abdomen/GI: Soft, non-tender, with normal bowel sounds. No distension or tympany. No guarding or rebound. No evidence of tenderness throughout. Back: No spinal tenderness. No costovertebral tenderness. Full range of motion. MS/ Extremity: Pulses equal, no cyanosis. Neurovascular intact. Full, normal range of motion. Neuro: Awake and alert, GCS 15, oriented to person, place, time, and situation. Cranial nerves II-XII grossly intact. Motor strength 5/5 in all extremities. Sensory grossly intact. Cerebellar exam normal. Normal gait. Psych: Awake, alert, with orientation to person, place and time. Behavior, mood, and affect are within normal limits. 14:59 Skin: Appearance: normal except for affected area, Color: normal in color, Temperature: normal temperature, Moisture: normal moisture, petechiae, not noted, ecchymosis, not noted, flushing, not noted, cellulitis, that is mild, confluent, induration, that is moderate is noted, infected port a cath site, right chest wall, placed Friday by dr matthew abdi. Vital Signs: 14:20 BP 91 / 72; Pulse 83; Resp 16; Pulse Ox 99% on R/A; iw 15:20 BP 127 / 79; Pulse 76; Resp 16; Pulse Ox 100% on R/A; rb1 16:20 BP 130 / 88; Pulse 79; Resp 18; Temp 98.4; Pulse Ox 98% on R/A; rb1 17:20 BP 116 / 81; Pulse 86; Resp 19; Temp 98.5(TE); Pulse Ox 98% ; rb1 18:11 BP 135 / 88; Pulse 82; Resp 17; Pulse Ox 99% on R/A; rb1 MDM: 14:11 Patient medically screened. evelia 15:03 Differential diagnosis: Chest Wall Contusion. Data reviewed: vital signs, nurses notes, [facility] lab test result(s), radiologic studies, plain films. 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 Test interpretation: by ED physician or midlevel provider: plain radiologic studies. Counseling: I had a detailed discussion with the patient and/or guardian regarding: the historical points, exam findings, and any diagnostic results supporting the discharge/admit diagnosis, lab results, radiology results. 15:13 ED course: spoke dr matthew abdi, place on abx , cipro and clinda and will see in the [facility] am. 15:48 ED course: . [facility] 17:49 ED course: labs received and reviewed with the patient, pt knows to follow up with dr evelia abdi tomorrow, return if symptoms increase or persist. 11/06 14:57 Order name: CBC with Diff; Complete Time: 17:48 [facility] 11/06 14:57 Order name: Comprehensive Metabolic Panel; Complete Time: 17:48 [facility] 11/06 14:57 Order name: Procalcitonin [facility] 11/06 14:57 Order name: Chest Single View XRAY; Complete Time: 16:17 [facility] 11/06 15:26 Order name: Urine Dipstick--Ancillary (enter results); Complete Time: 17:20 11/06 14:57 Order name: Urine Dipstick-Ancillary (obtain specimen); Complete Time: 16:08 [facility] Administered Medications: 15:46 Not Given (Duplicate Order): Clindamycin 900 mg IVPB once over 30 mins; (mix in 50 mL) [facility] 15:49 Not Given (provider changed order to PO meds): NS 0.9% 1000 ml IV at 1 bolus Per rb1 protocol; 1000 mL bolus 16:20 Drug: Cipro 500 mg Route: PO; rb1 16:26 Follow up: Pt. vomited right after taking the medication, but the pill was not in the rb1 emesis. Provider notified. 16:20 Drug: Clindamycin 300 mg Route: PO; rb1 16:26 Follow up: Pt. vomited right after she took the medication. Provider notified. rb1 16:24 Drug: Phenergan 25 mg Route: IM; Site: left deltoid; rb1 16:50 Follow up: Response: No adverse reaction; Nausea is decreased rb1 16:49 Drug: Clindamycin 600 mg {Note: and left gluteus.} Route: IM; Site: right gluteus; rb1 17:03 Follow up: Response: No adverse reaction rb1 18:12 Drug: Dilaudid 1 mg Route: IM; Site: right deltoid; rb1 18:13 Follow up: Response: Medication administered at discharge.; Pt. has transportation rb1 home, she is not driving Disposition: 11/07/19 17:52 Discharged to Home. Impression: Cellulitis and acute lymphangitis of trunk - mild at port -a - cath site. - Condition is Stable. - Discharge Instructions: Cellulitis, Adult, Cellulitis, Adult, [id number]. - Prescriptions for Cipro 500 mg Oral Tablet - take 1 tablet by ORAL route every 12 hours for 7 days; 14 tablet. Clindamycin HCl 300 mg Oral Capsule - take 1 capsule by ORAL route every 6 hours for 7 days; 28 capsule. promethazine 25 mg Oral Tablet - take 1 tablet by ORAL route every 6 hours As needed; 14 tablet. - Medication Reconciliation Form, Thank You Letter, Antibiotic Education, Prescription Opioid Use form. - Follow up: Private Physician; When: Tomorrow; Reason: Recheck today's complaints, Continuance of care, Re-evaluation by your physician. - Problem is new. - Symptoms are unchanged. Signatures: Dispatcher [employer] EDMj Marsh MD MD cha Williams, Irene, RN RN iw Liset De Jesus RN RN rb1 Corrections: (The following items were deleted from the chart) 18:20 17:52 11/07/2019 17:52 Discharged to Home. Impression: Cellulitis and acute rb1 lymphangitis of trunk - mild at port -a - cath site. Condition is Stable. Discharge Instructions: Cellulitis, Adult, Cellulitis, Adult, [id number]. Prescriptions for Cipro 500 mg Oral Tablet - take 1 tablet by ORAL route every 12 hours for 7 days; 14 tablet, Clindamycin HCl 300 mg Oral Capsule - take 1 capsule by ORAL route every 6 hours for 7 days; 28 capsule, promethazine 25 mg Oral Tablet - take 1 tablet by ORAL route every 6 hours As needed; 14 tablet. and Forms are Medication Reconciliation Form, Thank You Letter, Antibiotic Education, Prescription Opioid Use. Follow up: Private Physician; When: Tomorrow; Reason: Recheck today's complaints, Continuance of care, Re-evaluation by your physician. Problem is new. Symptoms are unchanged. evelia
[2019-11-07] MEDS ORDERED: HYDROMORPHONE HCL 1 MG/ML INJ ONE (18:16)
[2019-11-07 18:26] VITALS: O2SAT 98
[2019-11-07 18:27] VITALS: BP 116/81; TEMP 98.5
== END 2019-11-07 18:20 | disposition home or self-care (01) ==
LOC: ER 13:35
DX: L03.319 Cellulitis of trunk, unspecified (principal); L03.329 Acute lymphangitis of trunk, unspecified; F41.9 Anxiety disorder, unspecified; J45.909 Unspecified asthma, uncomplicated; G40.909 Epilepsy, unspecified, not intractable, without status epilepticus; Z88.0 Allergy status to penicillin; Z88.1 Allergy status to other antibiotic agents; Z88.5 Allergy status to narcotic agent; Z88.8 Allergy status to other drugs, medicaments and biological substances
CPT/HCPCS: 85025; 36415; 81003; 80053; 84145; 71045; 96372; 99284; J2550; J1170; S0077

== ENCOUNTER 2020-09-17 14:29 | Observation (INO) | payer OTHER ==
--- OUTSIDE RECORDS SUMMARY | 2020-09-17 14:34 | XMS REPORT | Continuity of Care Document ---
:1965 Author Organization [facility] t Address [address] [place] [address] Care Team Providers Name Role Phone Radha Carver MD Primary Care Physician Cayla Jesus MD Attending Clinician Ki CANO Attending Clinician Unavailable Hamzah Franco DO Attending Clinician Juliocesar CANO Attending Clinician Unavailable Milan CANO Attending Clinician Unavailable Andreia Walsh Attending Clinician Andreia Walsh Admitting Clinician Payers Payer Name Policy Type Policy Effective Date Expiration Date Sour ce Number MEDICAREMEDICARE PART [id number] 2010 [place] AND 00:00:00 [place]oo [id number] 2010- [place] Condition Condition Condition Status Onset Resolution Last Treating Co mments Source Name Details Category Date Date Treatment Clinician Date VOMITING, Diagnosis Active 2013-09-13 Memoria WEAKNESS - 14:41:00 l 00:00: Holcomb VOMITING, 00 WEAKNESS Active 09/13/2013 [facility] ABDOMINAL Diagnosis Active 2013-09-14 Memoria PAIN - 09:19:00 l GASTRITIS 00:00: [place]comb ABDOMINAL 00 PAIN GASTRITIS Active 09/13/2013 [facility] ABDOMINAL Diagnosis Active 2011-12-04 Memoria PAIN,VOMIT 12-02 12:49:00 l ING 00:00: [place]comb ABDOMINAL 00 PAIN,VOMIT ING Active 12/03/2011 [facility] Asthma Problem Resolve 2013-09-26 Bipin bernardo (disorder) d 20:43:58 l Asthma Holcomb (disorder) Resolved Problem 09/26/2013 [facility] Chronic Problem Resolve 2013-09-26 Mem oria fatigue d 20:43:58 l syndrome Chronic Vani nn (disorder) fatigue syndrome (disorder) Resolved Problem 09/26/2013 [facility] Diverticul Problem Resolve 2013-09-26 Memoria ar disease d 20:43:58 l (disorder) Uday n Diverticul ar disease (disorder) Resolved Problem 09/26/2013 [facility] Fibromyosi Problem Resolve 2013-09-26 Memoria tis d 20:43:58 l (disorder) Uday n Fibromyosi tis (disorder) Resolved Problem 09/26/2013 [facility] Lupus Problem Resolve 2013-09-26 Bipin bernardo erythemato d 20:43:58 l chace Lupus Dre (disorder) erythemato chace (disorder) Resolved Problem 09/26/2013 [facility] Migraine Problem Resolve 2013-09-26 Me moria (disorder) d 20:43:58 l Migraine Uday n (disorder) Resolved Problem 09/26/2013 [facility] Ulcer Problem Resolve 2013-09-26 Bipin bernardo (disorder) d 20:43:58 l Ulcer Holcomb (disorder) Resolved Problem 09/26/2013 [facility] Headache Problem Active 2011-12-12 Mem oria 08:58:08 l Headache Uday n Active Problem 12/12/2011 [facility] Lupus Problem Active 2011-12-12 Memor ia 08:58:08 l Lupus Holcomb Active Problem 12/12/2011 [facility] Pain Problem Active 2011-12-12 Memor ia 08:58:08 l Pain Holcomb Active Problem 12/12/2011 [facility] Bipolar Problem Active 2013-09-26 Bipin bernardo disorder 20:43:58 l (disorder) Bipolar Her wallace disorder (disorder) Active Problem 09/26/2013 [facility] Headache Problem Active 2013-09-26 Mem oria (finding) 20:43:58 l Headache Uday n (finding) Active Problem 09/26/2013 [facility] Pain Problem Active 2013-09-26 Memor ia (finding) 20:43:58 l Pain Dre (finding) Active Problem 09/26/2013 [facility] ADMINISTRT Diagnosis Active 2011-12-04 Memoria VE ENCOUNT 12:49:00 l NOS Dre ADMINISTRT VE ENCOUNT NOS Active [facility] ABDMNAL Diagnosis Active 2013-09-14 Me moria PAIN 09:19:00 l UNSPCF ABDMNAL [place]comb SITE PAIN UNSPCF SITE Active [facility] GASTRITIS Diagnosis Active 2013-09-14 Memoria NEC 09:19:00 l [place]comb GASTRITIS NEC Active [facility] Anemia Problem Resolve 2013-09-26 Bipin bernardo (disorder) d 20:43:58 l Anemia Holcomb (disorder) Resolved Problem 09/26/2013 [facility] Allergies, Adverse Reactions, Alerts Allergy Allergy Status Severity Reaction(s) Onset Inactive Treating Comm ents Source Name Type Date Date Clinician Baclofen Propensi Active Swelling [place] to 1-13 Methodi adverse 00:00: st reaction 00 s to drug Penicill Propensi Active Unknown [place] to Reaction - Methodi adverse 00:00: st reaction 00 s to drug Ondanset Propensi Active GI [place] H[place] ty to Intolerance 06-07 Meth rita adverse 00:00: st reaction 00 s to drug Food Food Active Memoria Eggs Eggs l Dre penicill penicill Active Memori a ins ins l Dre Zofran Zofran Active Memoria l Dre baclofen baclofen Active Memori a l Dre Family History Family Member Diagnosis Comments Start Date Stop Date Source Natural father Hypertension [place] Voodoo Paternal grandmother Diabetes [place] Social History Social Habit Start Date Stop Date Quantity Comments Source History [facility] Meth odist Alcohol Std Drinks History [facility] Meth odist Alcohol Binge Tobacco use and 2019-12-03 2019-12-03 Never used [facility] ethodist exposure 00:00:00 00:00:00 Alcohol intake 2019-12-03 2019-12-03 Lifetime [place] Me thodist 00:00:00 00:00:00 non-drinker (finding) History [facility] 2019-06-07 2019-06-07 1 [place] Meth odist Alcohol Frequency 00:00:00 00:00:00 [birth year] [place] Jason ethodist 00:00:00 00:00:00 Smoking Status Start Date Stop Date Source Social History [facility] Medications Ordered Filled Start Stop Current Ordering Indication Dosage Frequency Signature Comments Components Source Medication Medication Date Date Medication? Clinician (SIG) Name Name zonisamide Yes Migraine TAKE THREE [place] (ZONEGRAN) 4-23 with aura (3) Meth rita 100 MG 00:00: and without CAPSULE(S) st capsule 00 status BY MOUTH migrainosus ONCE A , not DAY. intractable zonisamide 2020- No Migraine TAKE THREE [place] (ZONEGRAN) 3-26 04-23 with aura (3) Met hodi 100 MG 00:00: 00:00 and without CAPSULE(S) st capsule 00 :00 status BY MOUTH migrainosus ONCE A , not DAY. intractable zonisamide 2020- No Migraine TAKE THREE [place] (ZONEGRAN) 2-18 08- with aura (3) Met hodi 100 MG 00:00: 00:00 and without CAPSULE(S) st capsule 00 :00 status BY MOUTH migrainosus ONCE A , not DAY. intractable zonisamide 2020- No Migraine TAKE THREE [place] [facility] 06-25- with aura (3) Met hodi 100 MG 00:00: 00:00 and without CAPSULE(S) st capsule 00 :00 status BY MOUTH migrainosus ONCE A , not DAY. intractable [facility]isamide 2020- [facility]29 with aura THREE (3) Methodi 100 MG 00:00: 00:00 and without CAPSULE(S) st capsule 00 :00 status BY MOUTH migrainosus ONCE A , not DAY. intractable levothyroxi 2019-05- No 200ug QD Take 200 [facility] 07-03 mcg by Methodi (SYNTHROID) 12:47: 00:[address] 200 mcg 00 :00 daily. tablet galcanezuma 2019-05- No Migraine 240mg Inject 240 [place] b-gnlm 07-03- with aura mg under Met hodi (Emgality 00:00: 23:59 and without the skin [address] Syringe) 00 :00 status once for 1 120 mg/mL migrainosus dose. syringe , not intractable zonisamide 2019-05- No [facility] 06-24-04 with aura THREE (3) Methodi 100 MG 00:00: 00:00 and without CAPSULE(S) st capsule 00 :00 status BY MOUTH migrainosus ONCE A , not DAY. intractable levothyroxi 2019-05 Yes 75ug QD Take 75 Am[facility] ston ne 1-28 mcg by Methodi (SYNTHROID) 00:00: mouth st 75 mcg 00 every tablet morning. erythromyci 2019-05 Yes 250mg QD Take 250 [place] 1-02 mg by Methodi (E-MYCIN) 16:07: mouth st 250 MG 41 daily. tablet zonisamide 2019-05- No Migraine TAKE THREE Lui (ZONEGRAN) 05-27 with aura (3) Met hodi 100 MG 00:00: 00:00 and without CAPSULE(S) st capsule 00 :00 status BY MOUTH migrainosus ONCE A , not DAY. intractable SUMAtriptan 2019-05 Yes 6mg Inject 6 [place] succinate 0-27 mg under Method i (IMITREX 15:29: the skin. st STATDOSE) 6 22 mg/0.5 mL kit promethazin 2019-05 Yes 50mg Take 50 mg Lui e 0-27 by mouth. Methodi (PHENERGAN) 15:29: st 50 MG 22 tablet naratriptan 2019-05 Yes 2.5mg Take 2.5 [place] (AMERGE) 0-27 mg by Methodi 2.5 MG 15:29: mouth. st tablet 22 fluticasone 2019-05 Yes 1{puff} Inhale 1 Lui propionate 0-27 puff. Methodi (FLOVENT 15:29: st HFA) 44 22 mcg/actuati on inhaler hydroxychlo 2019-05 Yes 200mg Take 200 [place] roquine 0-27 mg by Methodi (PLAQUENIL) 15:29: mouth. st 200 mg 22 tablet eszopiclone 2019-05 Yes 2mg QD Take 2 mg [place] (LUNESTA) 2 0-27 by mouth Meth rita MG tablet 15:29: nightly. st 22 Take immediatel y before bedtime tiZANidine 2019-05 Yes 4mg Q8H Take 4 mg [place] (ZANAFLEX) 0-27 by mouth Metho di 4 MG tablet 15:29: every 8 st 22 (eight) hours as needed for muscle spasms. furosemide 2019-05 Yes 20mg Q.5D Take 20 mg [place] (LASIX) 20 0-27 by mouth 2 Met hodi mg tablet 15:29: (two) st 22 times a day. hydromorPHO 2019-05 Yes acute pain 4mg Q4H Take 4 mg [place] 0-27 by mouth Methodi (DILAUDID) 15:29: every 4 st 4 MG tablet 22 (four) hours as needed for moderate pain .acute pain. zonisamide 2019-05 2020- No Migraine TAKE THREE [place] (ZONEGRAN) 0-05 11-02 with aura (3) Met hodi 100 MG 00:00: 00:00 and without CAPSULE(S) st capsule 00 :00 status BY MOUTH migrainosus ONCE A , not DAY. intractable zonisamide 2020- No Migraine 300mg QD Take 3 [place] (Zonegran) 8-03 -05 with aura capsules Methodi 100 MG 00:00: 00:00 and without ([address] capsule 00 :00 status total) by migrainosus mouth , not daily. intractable zonisamide 2019- No Migraine 100mg QD Take 1 [place] (Zonegran) 519 - with aura capsule Methodi 100 MG 00:00: 00:00 and without ([address] capsule 00 :00 status total) by migrainosus mouth , not daily. intractable aspirin 2020- No 81mg QD Take 81 mg Amna ston (ECOTRIN) 10-10 05-18 by mouth Metho di 81 MG 16:43: 00:[address] enteric 23 :00 coated tablet gabapentin Yes Migraine 600mg [id number] Take 1 [place] (NEURONTIN) 09-23 with aura [id number] tablet Methodi 600 mg 00:00: and without 3D (600 mg s t tablet 00 status total) by migrainosus mouth 3 , not (three) intractable times a day. gabapentin 2020- No Neuropathy 600mg Q.5D Take 1 [place] (NEURONTIN) 1-13 05- tablet Metho di 600 mg 00:00: 00:00 ([address] tablet 00 :00 total) by mouth 2 (two) times a day. heparin Yes Notes: Memoria flush 09-24 (Same as: l 19:05: Heparin [place]comb 00 Lock Flush) heparin, No 500 unit, Bipin bernardo porcine 09-24 Route: IV, l 18:41: ONCE, Dre 00 Dosing Weight 72.727, kg, Start date: 09/24/13 13:41:00, Stop date: 09/24/13 13:41:00 Acetaminoph Yes 15 ml, PO, Memoria en 21.7 5-02 Q6H, for l MG/ML / 18:19: pain, # [place] Hydrocodone 00 240 mL, 0 Bitartrate Refill(s) 0.5 MG/ML Oral Solution [Hycet] Sucralfate No Notes: Memor ia 100 MG/ML 30 Enteral l Oral 23:00: feeds may Dre Suspension interfere with the absorption of this medication . Shake well. Take 1 hr before or 2 hrs after antacids, dairy pdt, minerals & meals. (Same As: Carafate) Ferrlecit No Notes: Memori a 09-22 (sodium l 14:33: ferric gluconate complex (elemental iron) 62.5 mg/5 ml INJ) "Limited stability. Use immediatel y after admixture" (Same as: Ferrlecit) Magnesium No 2 gm, 50 Bipin bernardo Sulfate 4-30 mL, Route: l 14:32: IVPB, Drug form: INJ, ONCE, Dosing Weight 72.727, kg, Total dose = 2 gm, Start date: 09/22/13 9:32:00, Duration: 1 doses or times, Stop date: 09/22/13 9:32:00 Ketorolac No 4 days Memor ia -28 l 23:00: Hydromorpho No 6 mg, 30 Me moria ne 4-28 mL, Route: l 22:30: IV, [employer] Dose: 0.2 mg, [employer] Lockout: 10 minutes, 4 Hour Limit (In MG): 6, Drug Form: INJ, Continuous , Start date: 09/20/13 17:30:00, Duration: 30 day, Stop date: 10/20/13 17:29:00 Naloxone No Notes: Memoria 09-20 Same as l 22:18: Narcan enalaprilat No Notes: Bipin bernardo 09-20 (Same as: l 22:18: Vasotec-IV ) Ondansetron No Notes: Bipin bernardo - (Same as: l 22:18: Zofran) Promethazin No Notes: Do M emoria e - not give l 22:18: IV push. Dre 00 (Same as: Phenergan) Calcium No 1,000 mL, Memor ia Chloride 09-20 Rate: 125 l 0.0014 22:18: ml/hr, Dre MEQ/ML / 00 Infuse Potassium over: 8 Chloride hr, Route: 0.004 IV, Dosing MEQ/ML / Weight Sodium 72.727 kg, Chloride Total 0.103 Volume: MEQ/ML / 1,000, Sodium Start Lactate date: 0.028 09/20/13 MEQ/ML 17:18:00, Injectable Duration: Solution 30 day, Stop date: 10/20/13 17:17:00 Ofirmev No Notes: Memoria 09-20 Infuse l 22:17: over 15 minutes Do not exceed 4gm/day of acetaminop hen Promethazin No Notes: Do M emoria e 09-20 not give l 20:54: IV push. (Same as: Phenergan) Meperidine No Notes: Memor ia 09-20 (Same As: l 20:54: Demerol) Flumazenil No Notes: Memor ia - (Same as: l 20:54: Romazicon) Naloxone No Notes: Memoria - Same as l 20:54: Narcan Labetalol No Notes: Memori a - (Same as: l 20:54: Normodyne, Trandate) Push over 2 minutes Give bolus over 2-3 minutes. Hydromorpho No Notes: Bipin bernardo ne 09-20 Same as: l 20:54: Dilaudid Morphine No Notes: Memoria 4- (Same l 20:54: as:MORPhin e Sulfate) Exparel No Notes: Memoria 4-28 (Same as: l 14:00: Exparel) NOT FOR IV use Postoperat yecenia analgesia: Infiltrati on (local): Dose is based on surgical site and volume required to cover the area (in general, the maximum total dose is 266 mg). Bunionecto my: 7 mL into the tissues surroundin g the osteotomy and 1 mL into the subcutaneo us tissue of the surgical site (total dose = 8 mL [106 mg]) Hemorrhoid ectomy: 30 mL (20 mL vial diluted with 10 mL NS) divided and administer ed as 6 injections of 5 mL each (total dose = 30 mL [266 mg]) NS 1,000 mL No 1,000 mL, M emoria 09-20 Rate: 100 l 05:00: ml/hr, Infuse over: 10 hr, Route: IV, Dosing Weight 72.727 kg, Total Volume: 1,000, Start date: 09/20/13 0:00:00, Duration: 30 day, Stop date: 10/19/13 23:59:00 Flintstones No 1 tab, Bipin bernardo with Iron 09-18 Route: l Chewable 14:00: CHEW, Drug Her Form: CHEWTAB, Dosing Weight 72.727, kg, Daily, Start date: 09/18/13 9:00:00, Duration: 30 day, Stop date: 10/17/13 9:00:00 multivitami No Notes: Bipin bernardo n 09-18 Non-Formul l 14:00: cecelia Drug Dre 00 - Give with Food (Same as:Poly-Vi -Greer Chewable) Relistor No Notes: Memoria 09-18 Same as: l 02:00: Relistor Restricted to Palliative Care Sodium No 1,000 mL, Memori a Chloride 09-17 Rate: 30 l 0.154 17:19: ml/hr, Dre MEQ/ML 00 Infuse Injectable over: 33.3 Solution hr, Route: IV, Dosing Weight 72.727 kg, Total Volume: 1,000, Start date: 09/17/13 12:19:00, Stop date: 09/20/13 0:00:00 Sumatriptan No Notes: Bipin bernardo 50 MG Oral 4-25 (Same As: l Tablet 16:50: Imitrex) Holcomb [Imitrex] 00 Tylenol No Notes: Do Memor ia 4-25 not exceed l 16:49: 4 gm/day. Holcomb 00 (Same as: Tylenol) Klonopin No Notes: Memoria 4-25 (Same As: l 14:00: KlonoPIN) Diphenhydra No Notes: Bipin bernardo mine 4-25 (Same as: l 11:00: Benadryl) Holcomb 00 Ketorolac No 4 days Memor ia 4-25 l 10:49: Dre 00 Sumatriptan No Notes: Bipin bernardo 50 MG Oral 4-25 (Same As: l Tablet 10:46: Imitrex) Dre [Imitrex] 00 Relistor No Notes: Memoria 4-25 Same as: l 02:00: Relistor Restricted to Palliative Care Miralax No Notes: Memoria 4-24 Dissolve l 14:00: in 8 oz of water or juice. (Same as: Miralax) Docusate No Notes: Memoria Sodium 100 4-23 (Same as: l MG Oral 22:00: Colace) Holcomb Capsule 00 (Do Not [Colace] Crush) Plaquenil No Notes: Memori a 4-23 (Same as: l 17:54: Plaquenil) Antioxidant No 30 mL, Bipin bernardo Multiple 4-23 Route: PO, l Vitamins 14:00: Dosing and Weight Minerals 72.727, oral liquid kg, Daily, Start date: 09/15/13 9:00:00, Duration: 30 day, Stop date: 10/14/13 9:00:00 Reglan No Notes: Memoria 4-22 (Same as: l 23:00: Reglan) Thiamine No Notes: Memoria 4-22 (Same As: l 15:00: Vitamin B1) multivitami No Notes: Bipin bernardo n 4-22 (Same as: l 14:26: Multi-Valeria Dre 00 n) Vitamin D3 No 2,000 Memori a 2000 intl 4-22 IntlUnit, l units oral 14:25: 2 tab, Vani nn tablet 00 Route: PO, Drug form: TAB, Daily, Dosing Weight 72.727, kg, Start date: 09/14/13 9:25:00, Duration: 30 day, Stop date: 10/14/13 9:00:00 Ferrlecit No Notes: Memori a - (sodium l 14:16: ferric gluconate complex (elemental iron) 62.5 mg/5 ml INJ) "Limited stability. Use immediatel y after admixture" (Same as: Ferrlecit) Vitamin B No Notes: Memori a 12 - (Same As: l 14:15: Vitamin B12) Temazepam No Notes: Memori a -22 (Same As: l 04:37: Restoril) Sodium No 1,000 mL, Memori a Chloride 09-14 Rate: 30 l 0.154 00:13: ml/hr, [place]comb MEQ/ML 00 Infuse Injectable over: 33.3 Solution hr, Route: IV, Dosing Weight 72.727 kg, Total Volume: 1,000, Start date: 09/13/13 19:13:00, Duration: 30 day, Stop date: 10/13/13 19:12:00 Saline No Notes: Memoria Flush 0.9% - (Same as: l 00:13: BD [place]comb 00 Posiflush) Acetaminoph No Notes: Max Memoria en - acetaminop l 00:13: hen = Dre 00 4000mg/day (4 gm/day). (Same as: Tylenol) Morphine No Notes: Memoria 4-22 (Same l 00:13: as:MORPhin e Sulfate) Phenergan No Notes: Do Mem oria 4-22 not give l 00:13: IV push. [place]comb 00 (Same as: Phenergan) Protonix No Notes: For Mem oria 4-22 IV push l 00:13: reconstitu Holcomb 00 te with 10 ml 0.9% sodium chloride and push over 2 minutes. (Same as: Protonix) Temazepam Yes 30 mg = 1 Mem oria 30 MG Oral 4-21 cap, PO, l Capsule 23:48: Bedtime, Uday n [Restoril] 00 Sleep, # 30 cap, 0 Refill(s) Sucralfate No 1 gm = 1 Mem oria 1000 MG 4-21 tab, PO, l Oral Tablet 23:47: TID, # 120 Dre [Carafate] 00 tab, 0 Refill(s) Sumatriptan Yes 6 mg = 0.5 Memoria 12 MG/ML 4-21 ml, SUB-Q, l Injectable 23:47: ONCE, as Her wallace Solution 00 needed [Imitrex] Headache, # 1, 0 Refill(s) naratriptan Yes 2.5 mg = 1 Memoria 2.5 MG Oral 4-21 tab, PO, l Tablet 23:46: BID, as [place]comb [Amerge] 00 needed for headache, 0 Refill(s) Morphine No 30 mg = 1 Bipin bernardo Sulfate 30 4-21 tab, PO, l MG Extended 23:45: Q12H, 0 Her wallace Release 00 Refill(s) Tablet [MS Contin] Diphenhydra Yes 50 mg = 2 M emoria mine 4-21 tab, PO, l Hydrochlori 23:44: BID, as Her wallace de 25 MG 00 needed for Oral Tablet itching, 0 [Benadryl] Refill(s) Lidocaine Yes 1 patch, Bipin bernardo Hydrochlori 4-21 TOP, l de 0.05 23:42: Daily, as Vani nn MG/MG 00 needed, 0 Transdermal Refill(s) Patch [Lidoderm] Hydroxychlo Yes 200 mg = 1 Memoria roquine 4-21 tab, PO, l Sulfate 200 23:42: BID, # 60 H ermann MG Oral 00 tab, 0 Tablet Refill(s) [Plaquenil] Carafate No Notes: Memoria 4-21 Enteral l 21:54: feeds may Dre 00 interfere with the absorption of this medication . Shake well. Take 1 hr before or 2 hrs after antacids, dairy pdt, minerals & meals. (Same As: Carafate) Reglan No Notes: Memoria 4-21 (Same as: l 19:30: Reglan) Protonix No Notes: For Mem oria - IV push l 19:19: reconstitu te with 10 ml 0.9% sodium chloride and push over 2 minutes. (Same as: Protonix) normal No 1,000 mL, Memori a saline 0.9% 09-13 Rate: l IV 1,000 mL 19:19: 1,000 Vani nn 00 ml/hr, Infuse over: 1 hr, Route: IV, Dosing Weight 72.727 kg, Total Volume: 1,000, Start date: 09/13/13 14:19:00, Duration: 1 doses or times, Stop date: 09/13/13 15:18:00 heparin Yes Garth P 500 unit, Me moria 7-17 Nico 5 mL, l 18:16: Route: IV, Drug form: SOLN, ONCE, Start date: 12/10/11 13:16:00, Stop date: 12/10/11 13:16:00 Lortab 500 Yes Jose 15 ml, PO, Memoria mg-7.5 7-17 Nico Q4H, PRN, l mg/15 mL 17:22: 200 mL, Uday n oral elixir 59 for pain, Substituti on Allowed, Soft Stop, ELIX Ambien 10 Yes Jose 10 mg, 1 Me moria mg oral 7-17 Nico tab, PO, l tablet 17:22: Bedtime, Dre 19 200 tab, Substituti on Allowed, TAB Tylenol No Garth P 650 mg, 2 Me moria 7-13 Nico tab, l 22:35: Route: PO, Dre 00 Drug form: TAB, Q4H, PRN Fever, Start date: 12/06/11 17:35:00, Duration: 30 day, Stop date: 01/05/12 17:34:00 calcium No Garth P 2,000 mg, Me moria gluconate + 7-13 Nico 20 mL, l Sodium 18:40: Route: IV, Vani nn Chloride 00 ONCE, 0.9% IV 100 Start mL date: 12/06/11 13:40:00, Stop date: 12/06/11 13:40:00 SoluCortef 2011-0 No Garth P 100 mg, 2 Memoria 7-13 Nico mL, Route: l 18:40: IV, Drug Dre 00 form: PDR/INJ, ONCE, Start date: 12/06/11 13:40:00, Stop date: 12/06/11 13:40:00 Benadryl 2011-0 No Garth P 25 mg, 0.5 Memoria 7-13 Nico mL, Route: l 18:39: IV, Drug Holcomb 00 form: INJ, ONCE, Start date: 12/06/11 13:39:00, Stop date: 12/06/11 13:39:00 Sodium 2011-0 No Garth P 2,000 mL, Mem oria Chloride 7-13 Nico Rate: x 1 l 0.9% IV 18:33: bolus, Holcomb 2,000 mL 00 Route: IV, Dosing Weight 74.545 kg, Total Volume: 2,000, Start date: 12/06/11 13:33:00, Duration: 1 doses or times, Stop date: 12/06/11 15:32:00 ketorolac 2011- No Garth P 30 mg, 1 M emoria 30 mg/mL 7-13 Nico mL, Route: l injectable 03:00: IV, Drug Her wallace solution 00 form: INJ, Q6H, Start date: 12/05/11 22:00:00, Duration: 8 doses or times, Stop date: 12/07/11 16:00:00 Reglan 2011-0 No Garth P 10 mg, 2 Bipin bernardo 7-13 Nico mL, Route: l 00:00: IVP, Drug Dre 00 form: INJ, Q6H, Start date: 12/05/11 19:00:00, Duration: 30 day, Stop date: 01/04/12 18:00:00 dexamethaso 2011-0 No Michael S 4 mg, 1 Memoria ne 7-12 [place] mL, Route: l 21:50: IVP, Drug Dre 00 form: INJ, ONCE, PRN Nausea & Vomiting, Start date: 12/05/11 16:50:00 promethazin 2012-0 No Michael S 6.25 mg, Memoria e + Sodium 7-12 [place] 0.25 mL, l Chloride 21:50: Route: Holcomb 0.9% IV 00 IVPB, mL ONCE, PRN Nausea & Vomiting, Start date: 12/05/11 16:50:00 midazolam No Michael S 2 mg, 2 M emoria 7-12 [place] mL, Route: l 21:50: IVP, Drug form: INJ, Q5Min, PRN Anxiety, Start date: 12/05/11 16:50:00, Duration: 2 doses or times, Stop date: Limited # of times hydromorpho No Michael S 0.5 mg, Memoria ne 7-12 [place] 0.25 mL, l 21:50: Route: Holcomb 00 IVP, Drug form: INJ, Q5Min, PRN Pain Score 4-6, Start date: 12/05/11 16:50:00, Duration: 5 doses or times, Stop date: Limited # of times fentanyl No Michael S 25 Memor ia 7-12 [place] microgram, l 21:50: 0.5 mL, Route: IVP, Drug form: INJ, Q5Min, PRN Pain Score 4-6, Start date: 12/05/11 16:50:00, Duration: 4 doses or times, Stop date: Limited # of times meperidine No Imchael S 12.5 mg, Memoria 7-12 [place] 0.25 mL, l 21:50: Route: IVP, Drug form: INJ, Q30Min, PRN Other -See Comment, For shivering, Start date: 12/05/11 16:50:00, Duration: 2 doses or times, Stop date: Limited # of times morphine No Michael S 2 mg, 1 Me moria Sulfate 7-12 [place] mL, Route: l 21:50: IVP, Drug form: INJ, Q5Min, PRN Pain Score 4-6, Start date: 12/05/11 16:50:00, Duration: 8 doses or times, Stop date: Limited # of times flumazenil No Gaston 0.2 mg, Memoria 7-12 [place] Route: l 21:50: IVP, PRN, PRN Benzodiaze pine Reversal, Initial dose, Start date: 12/05/11 16:50:00, Duration: 30 day, Stop date: 01/04/12 16:49:00 naloxone No Michael S 0.04 mg, M emoria 7-12 [place] 0.1 mL, l 21:50: Route: Holcomb 00 IVP, Drug form: INJ, Q2MIN, PRN Narcotic Reversal, Start date: 12/05/11 16:50:00, Duration: 8 doses or times, Stop date: Limited # of times acetaminoph No Michael S 1,000 mg, Memoria en 10 mg/mL 7-12 [place]owitz 100 mL, l intravenous 21:50: Route: IV, solution Drug form: INJ, ONCE, PRN Pain Score 4-6, Start date: 12/05/11 16:50:00, Duration: 1 doses or times, Stop date: Limited # of times, Infuse over 15 minutes (for patient weight 50 kg or greater)In fuse over 15 minutes (for patient weight 50 kg or greater) hydromorpho No Michael S 0.5 mg, Memoria ne 7-12 Minkowitz 0.25 mL, l 20:04: Route: IVP, Drug form: INJ, Q5Min, PRN Pain Score 4-6, Start date: 12/05/11 15:04:00, Duration: 5 doses or times, Stop date: Limited # of times morphine No Michael S 2 mg, 1 Me moria Sulfate 7-12 Minkowitz mL, Route: l 20:04: IVP, Drug form: INJ, Q5Min, PRN Pain Score 4-6, Start date: 12/05/11 15:04:00, Duration: 8 doses or times, Stop date: Limited # of times naloxone No Michael S 0.04 mg, M emoria 7-12 Minkowitz 0.1 mL, l 20:04: Route: IVP, Drug form: INJ, Q2MIN, PRN Narcotic Reversal, Start date: 12/05/11 15:04:00, Duration: 8 doses or times, Stop date: Limited # of times flumazenil No Michael S 0.2 mg, 2 Memoria 7-12 Minkowitz mL, Route: l 20:04: IVP, Drug form: INJ, PRN, PRN Benzodiaze pine Reversal, Initial dose, Start date: 12/05/11 15:04:00, Duration: 30 day, Stop date: 01/04/12 15:03:00 Fleet Enema 2011- No Garth P 133 mL, Memoria 7-12 Nico Route: [place], l 14:00: Drug Form: [place] TYSON, ONCE, Start date: 12/05/11 9:00:00, Stop date: 12/05/11 9:00:00 Fleet Enema 2011- No Garth P 133 mL, Memoria 7-11 Nico Route: [place], l 19:00: Drug Form: Dre 00 TYSON, ONCE, Start date: 12/04/11 14:00:00, Stop date: 12/04/11 14:00:00 Citrate of No Garth P 300 mL, M emoria Magnesia 7-11 Nico Route: PO, l 19:00: Drug Form: Dre 00 LIQ, ONCE, Start date: 12/04/11 14:00:00, Stop date: 12/04/11 14:00:00 Ambien No Garth P 10 mg, 1 Bipin bernardo 7-11 Nico tab, l 02:00: Route: PO, Drug form: TAB, Bedtime, Start date: 12/03/11 21:00:00, Duration: 30 day, Stop date: 01/01/12 21:00:00 Benadryl 2011- No Garth P 25 mg, 0.5 Memoria 7-10 Nico mL, Route: l 23:37: IVP, Drug form: INJ, Q6H, PRN Itching, Start date: 12/03/11 18:37:00, Duration: 30 day, Stop date: 01/02/12 18:36:00 Protonix + No Garth P 40 mg, Me moria Sodium 7-10 Nico Route: l Chloride 21:30: IVP, Dre 0.9% IV 10 00 Before mL Dinner, Start date: 12/03/11 16:30:00, Duration: 30 day, Stop date: 01/01/12 16:30:00 Floranex 2011-0 No Garth P 1 tab, Bipin bernardo 7-10 Nico Route: PO, l 18:00: Drug Form: [place] 00 TAB, Q8H, Start date: 12/03/11 13:00:00, Duration: 30 day, Stop date: 01/02/12 5:00:00 hyoscyamine 2011-0 Yes 0.125 mg, M emoria 0.125 mg 7-10 1 tab, PO, l oral tablet 17:53: TID, PRN, H ermann 09 40 tab, as needed for spasm, Substituti on Allowed, TAB levothyroxi 2011-0 Yes 150 Memori a ne 150 mcg 7-10 microgram, l (0.15 mg) 17:52: 1 tab, PO, He rmann oral tablet 41 Daily, 30 tab, Substituti on Allowed, IN AM, TABIN AM divalproex 2011-0 Yes 750 mg, Bipin bernardo sodium 7-10 PO, l 17:51: Bedtime, Dre 47 Substituti on Allowed, TAB Klonopin 1 2011-0 Yes 1 mg, 1 Bipin bernardo mg oral 7-10 tab, PO, l tablet 17:51: TID, Dre 38 Substituti on Allowed, TAB Ambien 10 2011-0 Yes 10 mg, 1 Bipin bernardo mg oral 7-10 tab, PO, l tablet 17:51: Bedtime, [place]comb 09 PRN, as needed for sleep, Substituti on Allowed, TAB Zanaflex 2012-0 Yes 8 mg, PO, Bipin bernardo 7-10 Bedtime, l 17:51: Substituti Dre 02 on Allowed, TAB Zanaflex 2 2012-0 Yes 2 mg, 1 Bipin bernardo mg oral 7-10 cap, PO, l capsule 17:50: TID, 180 Uday n 58 cap, Substituti on Allowed, CAP Phenergan 2012-0 Yes 50 mg, PO, Me moria 7-10 Q6H, l 17:50: Substituti Dre 39 on Allowed, TAB fentanyl 75 Yes 1 patch, Me moria mcg/hr 7-10 TOP, Q72H, l transdermal 17:50: Substituti Dre film, 06 on extended Allowed, release Soft Stop, ERFILM naloxone No Garth P 0.2 mg, Mem oria 7-10 Nico 0.5 mL, l 17:49: Route: Dre 00 IVP, Drug form: INJ, Q5Min, PRN Narcotic Reversal, Start date: 12/03/11 12:49:00, Duration: 30 day, Stop date: 01/02/12 12:48:00 M.V.I. No Garth P 102.24 Memori a Adult 10 mL 7-10 Nico ml/hr, l + folic 16:57: Route: IV, Herm hernandez acid 1 mg + 00 Drug Form: Vitamin B1 INJ, 100 mg + Daily, Sodium Start Chloride date: 0.9% IV 500 12/03/11 mL 11:57:00, Duration: 30 day, Stop date: 01/02/12 9:00:00 Vitamin D3 No Garth P 5,000 Mem oria 7-10 Nico IntlUnit, l 16:55: 5 tab, Dre 00 Route: PO, Drug form: TAB, Daily, Start date: 12/03/11 11:55:00, Duration: 30 day, Stop date: 01/02/12 9:00:00 hydromorpho No Garth P 6 mg, 30 Memoria ne 6 mg 7-10 Nico mL, Route: l 16:54: IV, Drug Dre 00 Form: INJ, Start date: 12/03/11 11:54:00, Stop date: 01/02/12 11:53:00 Phenergan + No Garth P 12.5 mg, Memoria Sodium 7-10 Nico 0.5 mL, l Chloride 16:53: Route: Dre 0.9% IV 50 00 IVPB, Q6H, mL PRN Nausea & Vomiting, Start date: 12/03/11 11:53:00, Duration: 30 day, Stop date: 01/02/12 11:52:00 ketorolac No Garth P 30 mg, 1 M emoria 30 mg/mL 7-10 Nico mL, Route: l injectable 16:53: IV, Drug Her wallace solution 00 form: INJ, Q6H, PRN Pain, Start date: 12/03/11 11:53:00, Duration: 4 day, Stop date: 12/07/11 11:52:00 Sodium 2011-0 No Garth P 25 mL, Memori a Chloride 7-10 Nico Route: IV, l 0.9% IV 16:52: Start Holcomb 00 date: 12/03/11 11:52:00, Duration: 30 day, Stop date: 01/02/12 11:51:00, PRN Line Flush BD Normal 2011-0 No Garth P 10 mL, Mem oria Saline 7-10 Nico Route: IV, l Flush 16:52: Drug Form: Uday n 00 INJ, PRN, PRN Line Flush, Start date: 12/03/11 11:52:00, Duration: 30 day, Stop date: 01/02/12 11:51:00 D5W 1/2NS + 2011-0 No Garth P 1,000 mL, Memoria KCL 20mEq/L 7-10 Nico Rate: 120 l 1000ml 16:52: ml/hr, Dre (Premix) 00 Infuse 1,000 mL over: 8.3 hr, Route: IV, Dosing Weight 74.545 kg, Total Volume: 1,000, Start date: 12/03/11 11:52:00, Duration: 30 day, Stop date: 01/02/12 11:51:00 Vital Signs Vital Name Observation Time Observation Value Comments Source Systolic blood 2020-05-02 12:49:00 126 mm[Hg] John n [facility] pressure Diastolic blood 2020-05-02 12:49:00 84 mm[Hg] Adrienne on [facility] pressure Heart rate 2020-05-02 12:49:00 86 /min Hu [facility] Respiratory rate 2020-05-02 12:49:00 14 /min Santy coelho [facility] Temperature Oral (F) 2013-09-24 17:18:00 98.2 F [facility] 2013-09-24 17:18:00 [facility] Respitory Rate 2013-09-24 17:18:00 Anne Obrien Systolic (mm Hg) 2013-09-24 17:18:00 Bipin rial Dre Diastolic (mm Hg) 2013-09-24 17:18:00 Mem orial Dre Diastolic (mm Hg) 2013-09-24 12:20:00 Mem orial Dre Systolic (mm Hg) 2013-09-24 12:20:00 Bipin rial [place] Respitory Rate 2013-09-24 12:20:00 Memori al [place] Heart Rate 2013-09-24 12:20:00 [facility] Dre Temperature Oral (F) 2013-09-24 12:20:00 98.6 F [facility] Dre Heart Rate 2013-09-24 09:00:00 [facility] [place] Systolic (mm Hg) 2013-09-24 09:00:00 Bipin rial [place] Diastolic (mm Hg) 2013-09-24 09:00:00 Mem orial Dre Respitory Rate 2013-09-24 09:00:00 Memori al [place] Temperature Oral (F) 2013-09-24 09:00:00 98.1 F [facility] [place] Height 2013-09-13 19:05:00 175.26 cm [facility] Dre Weight 2013-09-13 19:05:00 [facility] [place] BMI Calculated 2013-09-13 19:05:00 Memori al Dre Heart Rate 2011-12-10 17:00:00 [facility] Dre Temperature Oral (F) 2011-12-10 17:00:00 98.4 F [facility] [place] Diastolic (mm Hg) 2011-12-10 17:00:00 Mem orial [place] Systolic (mm Hg) 2011-12-10 17:00:00 Bipin rial Dre Respitory Rate 2011-12-10 17:00:00 Memori al [place] Heart Rate 2011-12-10 13:00:00 [facility] Dre Temperature Oral (F) 2011-12-10 13:00:00 97.9 F [facility] [place] Systolic (mm Hg) 2011-12-10 13:00:00 Bipin rial Dre Respitory Rate 2011-12-10 13:00:00 Memori al [place] Diastolic (mm Hg) 2011-12-10 13:00:00 Mem orial Dre Systolic (mm Hg) 2011-12-10 10:10:00 Bipin rial [place] Diastolic (mm Hg) 2011-12-10 10:10:00 Mem orial [place] Heart Rate 2011-12-10 10:10:00 [facility] Dre Respitory Rate 2011-12-10 10:10:00 Memori al Dre Temperature Oral (F) 2011-12-10 10:10:00 98.0 F [facility] Dre Height 2011-12-03 16:29:00 172.72 cm [facility] Dre Weight 2011-12-03 16:29:00 [facility] Procedures Procedure Date / Time Performed Performing Clinician Sour e Appendectomy [facility] Bariatric operative [facility] procedure<sup>1</sup> Colon [facility] operation<sup>3</sup> Partial hysterectomy [facility] Plan of Care Planned Activity Planned Date Details Comments Source Future Scheduled 2020-12-24 INFLUENZA VACCINE [place] [facility] 00:00:00 [code = INFLUENZA VACCINE] Future Scheduled 2017 BREAST CANCER [facility] Test 00:00:00 SCREENING [code = BREAST CANCER SCREENING] Future Scheduled 2017 COLONOSCOPY SCRE[place]ING [place] [facility] 00:00:00 [code = COLONOSCOPY SCREENING] Future Scheduled 2017 SHINGLES VACCINES [place] [facility] 00:00:00 (#1) [code = SHINGLES VACCINES (#1)] Future Scheduled 1988 Screening for [facility] Test 00:00:00 malignant neoplasm of cervix (procedure) [code = 483285410] Future Scheduled 1985 Hepatitis C screening [place] [facility] 00:00:00 (procedure) [code = 352130725] Future Scheduled 1983 COVID-19 VACCINE (1) [place] [facility] 00:00:00 [code = COVID-19 VACCINE (1)] Encounters Start End Encounter Admission Attending Care Care Encounter Source Date/Time Date/Time Type Type Clinicians Facility Department ID 2020-05-02 2020-05-02 Outpatient [facility] [id number] [address] [place] 00:00:00 00:00:00 JAVAD [address] 2020-03-21 2020-03-21 Outpatient [facility] [id number] [address] [place] 00:00:00 00:00:00 JAVAD [address] 2019-12-03 2019-12-03 Outpatient [facility] [id number] [address] [place] 00:00:00 00:00:00 JAVAD [address] 2019-10-12 2019-10-12 Outpatient CELSO [facility] [id number] [address] [place] 00:00:00 00:00:00 JAVAD [address] 2019-09-24 2019-09-24 Outpatient CELSO, [facility] [id number] [address] [place] 00:00:00 00:00:00 JAVAD [address] 2013-09-13 2013-09-24 Outpatient [facility] [id number] 075 13:43:00 14:55:00 Garth P 02 Results Test Test Test Results Result Source Description Time Comments Comments XR Chest 1 View 2019-10- Patient: IVAN MENESES Frontal 12 14:41:04 Date/Time11/05/2019 10:25 CDTReason for ExamLine placementReportLOCATION: [id number] 1 VIEWINDICATION: Line placementCOMPARISON: None availableFINDINGS: Right subclavian accessed chest port tip is at the mid SVC. The lungs are clear and well inflated. No pleural effusion or pneumothorax. The cardiomediastinal silhouette is unremarkable. The bony thorax is intact.IMPRESSION:Right subclavian chest port tip at mid SVC. Final Dictated by: MD Valenzuela Eniola FDictated DT/TM: 11/05/2019 2:40 pmSigned by: MD Valenzuela Eniola FSigned (Electronic Signature): 11/05/2019 2:41 pm XR Fluoroscopy 2019-10- Patient: IVAN MENESES in Imaging per 12 Hour 10:29:38 Date/Time11/05/2019 09:10 CDTReason for ExamsurgeryReportLocation R 16EXAM- Intraoperative FluoroscopyINDICATION- surgeryFINDINGS- See Impression.IMPRESSION:1. Single fluoroscopic image demonstrates NG tube. 2 central lines are seen superimposing the SVC.2. FLUORO TIME- less than 1 min3. Number of fluoroscopic images: 1Please refer to performing physician's notes for full details of this procedure. Final Dictated by: MD Valenzuela Eniola FDictated DT/TM: 11/05/2019 10:23 amSigned by: MD Nicolas, Mayra FSigned (Electronic Signature): 11/05/2019 10:29 am CHEM PANEL 2013-09-23.5 [facility] 01 Dre 09:50:00 CHEM PANEL [facility] 01 [place] 09:50:00 CHEM PANEL [facility] 01 [place] 09:50:00 CHEM PANEL 2013-09-26.2 [facility] 01 Dre 09:50:00 CHEM PANEL 2013-09-29.9 [facility] 01 [place] 09:50:00 CHEM PANEL [facility] 01 [place] 09:50:00 CHEM PANEL .7 [facility] 01 [place] 09:50:00 CHEM PANEL 2013-09-28 [facility] 01 [place] 09:50:00 CHEM PANEL [facility] 01 [place] 09:50:00 CHEM PANEL [facility] 01 [place] 09:50:00 CHEM PANEL .2 [facility] 01 [place] 09:50:00 HEMATOLOGY 60.8 [facility] 01 [place] 09:50:00 HEMATOLOGY 2013-09-24.6 [facility] 01 [place] 09:50:00 HEMATOLOGY .5 [facility] 01 Dre 09:50:00 HEMATOLOGY 3.6 [facility] 01 [place] 09:50:00 HEMATOLOGY .4 [facility] 01 [place] 09:50:00 HEMATOLOGY .7 [facility] 01 Dre 09:50:00 HEMATOLOGY 0.2 [facility] 01 Dre 09:50:00 HEMATOLOGY 0.6 [facility] 01 Dre 09:50:00 HEMATOLOGY 0.9 [facility] 01 [place] 09:50:00 HEMATOLOGY .3 [facility] 01 Dre 09:50:00 HEMATOLOGY 2013-09-30.0 [facility] 01 Dre 09:50:00 HEMATOLOGY [facility] 01 [place] 09:50:00 HEMATOLOGY 16.1 [facility] 01 Dre 09:50:00 HEMATOLOGY 35.0 [facility] 01 [place] 09:50:00 HEMATOLOGY 2013-09-26.3 [facility] 01 Dre 09:50:00 HEMATOLOGY 2013-09-30.2 [facility] 01 Dre 09:50:00 HEMATOLOGY 2013-09-24.66 [facility] [place] 09:50:00 HEMATOLOGY 2013-09-23 09:50:00 Test Item Value Reference Range Interpretation Comme nts MCH (test code = MCH) 30.6 pg 27.0-31.0 [facility] YftpbevAOQPBYBTDS4550-55-98 09:50:0087.5[facility]ann[facility]M PANEL 2013-09-22 09:30:003.1[facility] HermannCHEM GWRXA0926-17-42 09:30:001.3[facility] HermannCHEM HBOWZ1083-08-29 09:30:0077[facility] HermannCHEM GLOEU7590-88-94 09:30:000.9[facility] HermannCHEM IVIMF8086-10-68 09:30:0067[facility]annCHEM VUIQD5000-68-00 09:30:0011[facility] HermannCHEM SGOIP5181-33-83 09:30:0026 [facility]annCHE[facility] YMULV5534-33-36 09:30:0012.1[facility] HermannCHEM PANEL 2013-09-22 09:30:81354Xeztobnc HermannCHEM MDDRY6396-66-92 09:30:007.8[facility] HermannCHEM QOBWR5780-32-90 09:30:004.1[facility] HermannCHEM OWQOM1998-47-33 09:30:03908Fgpvldnn QraeockLYYCKXWXTF7467-26-96 09:30:0034.3[facility] [place] EJTQYTUPJD5778-35-17 09:30:0016.8[facility] RntrhtcUPZGACZLUK1726-10-36 09:30:00 88.6[facility] LhopkcfBSNIDNQBDE8574-28-69 09:30:002.80[facility] HermannHEMATOLOGY 2013-09-22 09:30:005.1[facility] HmpewceCBOIIWWVYZ5443-30-31 09:30:88166Bvzvwvlo KyzkucxRVQIQTSPHC5407-23-89 09:30:00 Test Item Value Reference Range Interpretation Comments MCH (test code = MCH) 30.4 pg 27.0-31.0 [facility] AqgnoviHQQHOSXAZE2611-35-68 09:30:008.5[facility] HermannHEMATOLOGY 2013-09-22 09:30:0024.8[facility] LfujlspRMTNRBFFHA6461-57-34 09:30:008.1[facility] AniuetcYHTWAZGLCW0012-36-96 09:30:000.0[facility] TufoolvICCYREWDHE1107-66-98 09:30:000.1[facility] KpeagugIWFWKGZLPM5367-97-86 09:30:000.6[facility] [place] VRNZNCFRUQ6711-95-59 09:30:001.4[facility] RbssqbpXRXHHVLAEA1473-56-00 09:30:001.0 [facility] HwalkvgIMGELCPTPN7876-89-46 09:30:003.3[facility] HermannHEMATOLOGY 2013-09-22 09:30:0065.3[facility] XqllpocYKUWXNFKWE3644-93-37 09:30:0020.6[facility] AjjbxpgRWNYVWCYLM5020-86-81 09:30:00Normal (09/22/13 4:30 AM)[facility] Dre BDAXWSCJBJ2412-01-99 09:30:000.3[facility] IhrmpfvMHRXTTEZKK8648-23-21 09:30:00 Normal (09/22/13 4:30 AM)[facility] UdhdtlcUMZGBXVGXE9905-52-49 09:30:0012.4 [facility] HermannCHEM LJRHE2169-97-60 10:00:07091Fmkmilie HermannCHEM PANEL 2013-09-21 10:00:000.7[facility] HermannCHEM TEAAM4119-61-02 10:00:88023Poigpmzz HermannCHEM FGOTG6134-11-57 10:00:009[facility] HermannCHEM WHGAC7795-19-60 10:00:004.5[facility] HermannCHEM NQSXP9636-57-31 10:00:18285Dyuirydi HermannCHEM FNOGB7972-28-62 10:00:008.2[facility] HermannCHEM BUHIO4662-87-86 10:00:0025 [facility]annCHEM BDRFP7445-16-06 10:00:0088[facility] HermannCHEM PANEL 2013-09-21 10:00:0014.5[facility] HzknbevKAFEUZJKHU4071-87-68 10:00:00Slight (09/21/13 5:00 AM)[facility] PjlkrxfIDLPWISDYP5234-55-77 10:00:000.1[facility] OxujvuwWZWHIFOGLL7371-83-76 10:00:006.1[facility] NmvfwtuAZQLKQGDQA1012-48-74 10:00:000.0[facility] FfdubkvVEKYUWIGHF8912-86-81 10:00:000.0[facility] Dre OJQAUEVRKP7563-89-93 10:00:000.0[facility] ModcxotTEIJMSRUIA0914-62-07 10:00:00 Slight (09/21/13 5:00 AM)[facility] ImtttimNNFUEHXAQI4665-80-66 10:00:000.7[facility] CsrxzrwXKNRYVMKJR9965-37-64 10:00:000.6[facility] ZmhyhwjMUYKIECPLP0343-73-57 10:00:009.3[facility] UjpjkmiNJHDOWVNBZ5161-33-37 10:00:008.4[facility] [place] MRARRCMWUL4676-77-96 10:00:00Normal (09/21/13 5:00 AM)[facility] HermannHEMATOLOGY 2013-09-21 10:00:0082.2[facility] MihpzqbNRERBVCZWF8736-63-54 10:00:003.01[facility] LkkerxqIMWXDQQKAO9302-42-99 10:00:007.4[facility] KcufkjkMFXDXFKLPL3025-29-18 10:00:00 Test Item Value Reference Range Interpretation Comments MCH (test code = MCH) 29.5 pg 27.0-31.0 [facility] GpnursoGQQQLEWOPH7653-02-84 10:00:008.9[facility] HermannHEMATOLOGY 2013-09-21 10:00:0088.1[facility] KzbvzfmMOUVEJHPQW6976-96-83 10:00:0026.5[facility] NzcgeevISYADPCOCY5056-53-23 10:00:0033.5[facility] IzrpzxjXEPYCSPRTP1731-43-85 10:00:75425Visumwmc ZfyewdbCPNFNBYAEW9884-35-82 10:00:0016.6[facility] Dre FSPICAFAXL3964-04-06 10:00:008.4[facility]annBLOOD BANK CYFDIUR6648-67-08 19:10:00Negative (09/20/13 2:10 PM)[facility] HermannCHEM THKYV8052-89-84 10:10:009 [facility] HermannCHEM XKQZB6346-88-78 10:10:002.7[facility] HermannCHEM PANEL 2013-09-19 10:10:005.1[facility] HermannCHEM PFGXB5616-73-89 10:10:0063[facility] HermannCHEM UOFIF5888-35-03 10:10:0011[facility] HermannCHEM JRZIC6199-94-05 10:10:000.7[facility] HermannCHEM BHXHI9924-72-52 10:10:009[facility] HermannCHEM WWPWT0999-13-00 10:10:002.4[facility] HermannCHEM SZZWT1238-50-61 10:10:001.1 [facility] PvqnwruKXMPKVTDJO7125-32-51 10:10:000.0[facility] HermannCHEM PANEL 2013-09-15 10:00:0010[facility] HermannCHEM YKHWH5737-30-01 10:00:0010[facility] HermannCHEM WGYPF0856-82-55 10:00:002.6[facility] HermannCHEM TJRGH8753-53-39 10:00:0058[facility] HermannCHEM RGONT3546-81-16 10:00:000.5[facility] HermannCHEM DIDPV7849-56-68 10:00:004.8[facility] HermannCHEM RIBRG6755-95-64 10:00:001.2 [facility] HermannCHEM FRNSB8910-13-64 10:00:002.2[facility] HermannCHEM PANEL 2013-09-15 10:00:007[facility] HermannCHEM MBZDP0038-73-68 10:00:003.8[facility] HermannCHEM SLRZN7195-51-26 10:00:001.5[facility] NspimoyBLGIGDZBIS1974-38-30 09:30:00Slight *ABN*(09/14/13 4:30 AM)[facility] QjmqpdlCFPLBYXVLU4546-92-80 09:30:00Slight (09/14/13 4:30 AM)[facility] OeuvwpzTZFXWAEWBA5163-07-78 09:30:00 Normal (09/14/13 4:30 AM)[facility]BL[facility] B[facility] MMIGZGP9033-98-97 00:30:00 Negative (09/13/13 7:30 PM)[facility]annURINE AND VYYQN6227-27-83 20:40:407 [facility] AND WLYUZ8260-73-88 20:40:408[facility]annUR[facility] AND XVYLK0547-36-73 20:40:40Negative *NA*(09/13/13 3:40 PM)[facility] AND QMEET0604-31-92 20:40:406.0[facility]annUR[facility] AND GWCTO7297-24-88 20:40:40 Small *ABN*(09/13/13 3:40 PM)[facility] AND JIHPK4306-54-44 20:40:40 Negative (09/13/13 3:40 PM)[facility] AND IRWPO9521-48-18 20:40:40 Negative (09/13/13 3:40 PM)[facility] AND IOCDJ3554-59-67 20:40:40 Yellow *NA*(09/13/13 3:40 PM)[facility] AND EIVVL9950-95-26 20:40:40 1.019[facility]annUR[facility] AND FESUL8705-21-51 20:40:40Slight *ABN*(09/13/13 3:40 PM)[facility] RioxvcaDGHGNYEHVT3081-51-88 20:40:18Negative (09/13/13 3:40 PM) [facility] HermannCHEM NJHSB3266-05-56 20:40:39616Urcuxhrt HermannCHEM PANEL 2013-09-13 20:40:001.2[facility] HermannCHEM TLFNG9378-31-96 20:40:002.5[facility] HermannCHEM QWVBM3445-04-99 20:40:009[facility] HermannCHEM ACAXI5301-14-58 20:40:0010[facility] HermannCHEM UJUOR0659-89-83 20:40:005.6[facility] HermannCHEM NLPVN5392-35-62 20:40:0010[facility] HermannCHEM WZVML7346-59-27 20:40:003.1 [facility]annCHEM TJGYP9975-21-30 20:40:0066[facility] HermannCHEM PANEL 2013-09-13 20:40:000.4[facility] SmfwotnLKUOWSQKUE9041-10-43 20:40:00 Test Item Value Reference Range Interpretation Comments PTT (test code = PTT) 34.7 s 22.9-35.8 [facility] FiysdyiDPMTVTDJSC4255-14-07 20:40:00 Test Item Value Reference Range Interpretation Comments PT (test code = PT) 12.8 s 12.0-14.7 [facility] YffatfuSZOPDCPWZY6393-24-46 20:40:000.97[facility]annURINE AND STOOL 2013-09-13 19:20:00Negative (09/13/13 2:20 PM)[facility] HermannHEMATOLOGY 2011-12-09 09:50:000.1[facility] HvxnotnIYZICDNLHT1066-29-93 09:50:003.8[facility] OpinassLZLKXPAQDO8109-35-46 09:50:001.3[facility] IhkacaoGPXUQGAUTS2480-03-64 09:50:000.5[facility] TpuqhmbILWMSXSKLN4214-69-53 09:50:0066.3[facility] [place] LVELPRNBQD1976-32-83 09:50:009.5[facility] VcgscnxCDCQPWDUPB6490-38-18 09:50:00 22.1[facility] OeyrckdMQLLOSRYHI7821-64-65 09:50:000.2[facility] HermannHEMATOLOGY 2011-12-09 09:50:001.9[facility] BzbttktTOPBUWNPSO7726-73-96 09:50:0088.9[facility] ZewvfffOOXGNRVDNC2029-82-84 09:50:0015.3[facility] CwkihajJKCZVLSYGM7386-82-92 09:50:0034.1[facility] YjukcqrPLMHFIRJYO0606-90-77 09:50:77400Hghpzmys Dre NNRSMUYATX1555-48-52 09:50:007.9[facility] MwgqyyzVXHFGQUMWE3072-16-49 09:50:00 Test Item Value Reference Range Interpretation Comments MCH (test code = MCH) 30.3 pg 27.0-31.0 N [facility] IcwsbboBTALUKNJJF2789-63-12 09:50:0030.0[facility] HermannHEMATOLOGY 2011-12-09 09:50:005.8[facility] FbepyxqECHXGEVQFY6405-81-93 09:50:0010.2[facility] NszqtgcTEIUJJBDLM9754-98-08 09:50:003.38[facility]annBLOOD BANK RESULTS 2011-12-08 17:54:00Product available (12/08/2011 12:54:00)[facility]annBL[facility] BANK QGEZNED4466-76-53 15:10:00Negative (12/08/2011 10:10:00)[facility] TUTMBWHHHH3898-14-12 10:00:008.0[facility] UpqhnbpOZFHEGHHNC4873-39-06 10:00:00 12.0[facility] OivjcfsJQTQVHDCRQ8655-50-28 10:00:00Normal (12/08/2011 05:00:00) [facility] TmqmccuIPYSUGEFUL7922-52-92 10:00:000.0[facility]annHEMATOLOGY 2011-12-08 10:00:004.0[facility] PlxvfcrQKWRSONSBH0068-49-67 10:00:00Slight *ABN*(12/08/2011 05:00:00)[facility] OuqmqwqMPUNUIOAWV4447-44-25 10:00:00Slight *ABN*(12/08/2011 05:00:00)[facility] QgaxuuhZIGLCGCPMS5848-71-77 10:00:00Slight (12/08/2011 05:00:00)[facility] UaandinHUJUHBGSMF7495-30-79 10:00:0076.0[facility] IepfsmyYBCTNMMJWE3119-76-46 10:00:007.3[facility] SsulkhaHUKCJVABQY4541-03-88 10:00:000.3[facility] ZtvogmgDAYZTQESSP9946-28-34 10:00:000.7[facility] TZPKGALBHH1961-46-26 10:00:002.91[facility] VqakyxrTCPUAGWDES8116-30-41 10:00:00 8.3[facility] SfoiisjZSLZUDGBDK0427-45-49 10:00:00 Test Item Value Reference Range Interpretation Comments MCH (test code = MCH) 30.3 pg 27.0-31.0 N [facility] YeizrluMFYPBVLXMW8652-34-54 10:00:0089.3[facility]annHEMATOLOGY 2011-12-08 10:00:0033.9[facility] YpbtnfyRKJLYGTMSD2887-20-88 10:00:0026.0[facility] BzvxmkvNFDLPWHFAZ0096-43-63 10:00:008.8[facility] VawxdtaJQWSONKWKB7810-38-28 10:00:70018Uqpaimpy SqtgyydQBDBSAJNFG9747-70-86 10:00:007.7[facility] GRGNSNFSAA0554-16-40 10:00:0015.8[facility] HajpvmuWXMCCXOER0608-29-52 14:33:002.2 [facility] QcgsqwaROTYRAUIW3162-96-62 14:33:004.0[facility] HermannCHEMISTRY 2011-12-07 14:33:08082Ocbknpln IemczaiYXTGUYSTB2420-34-19 14:33:99023Onkfplrz SylwcexVFFHYDVYQ3516-47-14 14:33:0022[facility] FabhpnuYOTDASLLI1039-78-07 14:33:007.6[facility] KanuyolNSWMQOXFL6742-68-34 14:33:001.0[facility] MIOMYBSRS1863-38-94 14:33:0016[facility] TdpvbneJPERBORJN2712-38-61 14:33:16071 [facility] ZjmeecySJIMIRTAJ5226-26-28 14:33:0015.0[facility] HermannCHEMISTRY 2011-12-07 14:33:001.3[facility] FjyggiiFEXIXTTEKG5728-62-68 14:33:00 Test Item Value Reference Range Interpretation Comments Tot Cell Ct (test code = Tot Cell Ct) 100 1 [facility] VzrsijaNDYLJRTLWB6281-35-75 14:33:00Normal (12/07/2011 09:33:00) [facility] SyvgchzLPAKOKDPJE4890-40-25 14:33:000.0[facility]annHEMATOLOGY 2011-12-07 14:33:001.0[facility] EnohstjXRGYURCVSA4963-03-08 14:33:008.0[facility] JuzaretUEQPJVMUZL3574-70-32 14:33:0017.0[facility] BqkbtksPTUKPYQWIC7510-78-51 14:33:0034.0[facility] NfjjvemHNUDFWIQWZ6168-70-03 14:33:0040.0[facility] UAXLMSSSAF7859-01-06 14:33:00Normal (12/07/2011 09:33:00)[facility] DHDVRLKCEM9182-22-38 14:33:000.8[facility] BtzdskdLLJBURURFU3256-26-79 14:33:007.2 [facility] WkbewguVOJKUFLSDZ4265-13-27 14:33:001.6[facility]annHEMATOLOGY 2011-12-07 14:33:0015.8[facility] OffcczyGPKFDLIRGU4491-28-48 14:33:0025.2[facility] YnidkkbSBHTAIVVZX1486-27-63 14:33:008.3[facility] QszujumWBXKOCQGBX8201-55-81 14:33:0088.5[facility] ZunherwMDFMQMKLPM9981-29-78 14:33:0032.8[facility] Dre VRWDCMHXDO2985-07-37 14:33:00 Test Item Value Reference Range Interpretation Comments MCH (test code = MCH) 29.0 pg 27.0-31.0 N [facility] MabkpipQWIEHDJINM8120-75-52 14:33:02296Dpjkdtnk HermannHEMATOLOGY 2011-12-07 14:33:007.6[facility] OgjzjzwTPVXKTAAWV5761-45-85 14:33:002.85[facility] BubttumDBVGVQVEJX3916-36-16 14:33:009.7[facility] WsgcfubWULUJOKERP7153-85-02 22:15:00Negative *NA*(12/06/2011 17:15:00)[facility] FghzwuhWELTBZJVMO0530-21-83 22:15:00Negative (12/06/2011 17:15:00)[facility] ZmzeirtXJZKUDJCUT5997-23-44 22:15:003[facility] ApjzeayFOSJFGCLQN0286-69-03 22:15:00Many /LPF *ABN*(12/06/2011 17:15:00)[facility] UcygobfOGCAPEORWD0358-29-98 22:15:00Negative (12/06/2011 17:15:00)[facility] CqroafsRSIQYFNKGU7706-40-47 22:15:00Occasional /LPF *NA*(12/06/2011 17:15:00)[facility] DkxmdarAASKEDPWQP2081-72-08 22:15:00Negative (12/06/2011 17:15:00)[facility] QhkfahqLDLDFZHQLW7379-82-01 22:15:0020 mg/dL *ABN*(12/06/2011 17:15:00)[facility] GbogqmdKDDHCHADVY4368-82-84 22:15:00Negative mg/dL *NA*(12/06/2011 17:15:00)[facility] PbxqqmyQQYZIJAZAO0633-08-00 22:15:00 Negative mg/dL *NA*(12/06/2011 17:15:00)[facility] QxxcblqVGKRSAMPIM2860-86-98 22:15:00Clear (12/06/2011 17:15:00)[facility] MxdbcqbYOYBRJWHIX3408-07-26 22:15:00 Yellow *NA*(12/06/2011 17:15:00)[facility] McngpofVJUWBHAOHX7197-03-15 22:15:005.5 [facility] MxypamhODGYBUAVNX6885-38-75 22:15:001.016[facility] HermannCHEMISTRY 2011-12-06 09:20:005[facility] IamfwyyBVJQWTMON2220-70-88 09:20:000.8[facility] PrnzzunTXOQVRJUB3991-96-89 09:20:42753Pqmgmexs NodogjeDXZDOTRDY0076-67-16 09:20:008.0[facility] JbaqtqvVXTKOCQFO2004-62-36 09:20:82380Uylhilpr Dre KNCXBRTOD7412-55-72 09:20:0025[facility] UuxzdomOGKPFRTVN7365-80-02 09:20:33424 [facility] CdtrychFKOZUKHTU2121-31-48 09:20:004.0[facility] HermannCHEMISTRY 2011-12-06 09:20:0014.0[facility] AutzbsbKGZBDQNXDJ1481-42-62 09:20:000.1[facility] HfnetldKVZITZCYEJ0397-39-36 09:20:000.0[facility] XpnjfyiQYZCPFNHUK5846-21-22 09:20:000.1[facility] JcoytzrNTHEUKSWLL2536-98-67 09:20:001.0[facility] Dre QPOQKMEHB0406-06-34 18:20:005.8[facility] BmwgrfiJPEDPWBGD0496-20-24 18:20:66294 [facility] TcxakxyKSOPODHKH4708-68-97 18:20:65123.6[facility] HermannCHEMISTRY 2011-12-03 18:20:003.27[facility] DjmejlsAELFTFWKN8814-11-30 18:20:11031Egakwpmx YtndomiHDUCLMOGD8683-41-25 18:20:47766Qbebnxul KdoctpiXOZQOEMGZ7873-07-26 18:20:0062[facility] TgsjgwvLYDSZMOHR0456-73-33 18:20:0064[facility] Dre EDLQETIXX5869-49-59 18:20:28724Bhaadkzf SnbyjltUBIVJMWUD9992-33-27 18:20:96911 [facility] MozuhfaBKQKXFPHR8895-55-66 18:20:0033[facility] HermannCHEMISTRY 2011-12-03 18:20:00670Ftzrpdyd TtwmxcuIZTCBVWVO9052-78-33 18:20:006.3[facility] JhtcucwUEYDXQZKQ0405-45-80 18:20:001.600[facility] RnkdjjmBFMLRREUT7341-60-39 18:20:00<4[facility] ZznhqriHGBRBLJSH3489-09-16 18:20:0013[facility] Dre LPNWZZVGM9922-61-45 18:20:0013[facility] IcdowviQHFXMMYUB8145-17-21 18:20:0041 [facility] OcjmmfmKOQYSXJYF0611-35-78 18:20:0019.3[facility] HermannCHEMISTRY 2011-12-03 18:20:09186Gprypgfk PluxdjyYJSZEYCGI8751-69-27 18:20:47295Ufvbprai HbrozdiKLCWQJLPR2834-06-86 18:20:35578Peihqybc SvlvjvkKFGOWJRTF6525-32-26 18:20:003.6[facility] PfljzwnAJMMRQGTK2764-50-35 18:20:001.9[facility] Dre CRIVICWCY8800-13-76 18:20:002.8[facility] UlprjntPZVVTBRHC3503-73-58 18:20:001.2 [facility] YhnnhznJVAZJKKIC9313-85-11 18:20:0012.2[facility] HermannCHEMISTRY 2011-12-03 18:20:0014[facility] LqlsuwlHJXLMUBKS9220-50-43 18:20:000.3[facility] PgbqbxkDOMBSQADQ1785-35-36 18:20:007[facility] VmxolwnUYZYMVXRQ4747-15-99 18:20:00 3.5[facility] ZqktbrlVERRWRRWB7058-24-55 18:20:007[facility] HermannCHEMISTRY 2011-12-03 18:20:0054[facility] LoyruwoSAIXLECKF9958-65-30 18:20:006.3[facility] MzfsecyKHVQAIJPI3064-14-72 18:20:0026[facility] UjqmxlzRMEDPTOYL1746-34-36 18:20:008.7[facility] PeifxiaEPFTMCJPJ0740-52-83 18:20:18531Jobrracs Dre QZFJOLKGI9702-47-01 18:20:004.2[facility] BphltonWOEVUBDFD9328-90-32 18:20:54924 [facility] UjlvjgjGOEODFTCB3823-62-91 18:20:40526Fgxiqmmt HermannCHEMISTRY 2011-12-03 18:20:0011[facility] JvukqglBLILWAVMZ4133-97-43 18:20:000.8[facility] KkpfdmkADTAZYMMCD5471-71-17 18:20:000.7[facility] FwnjmuuXXIEEXWUGH0689-88-08 18:20:000.1[facility] EfalpvqUVKFWXYNMW1524-52-64 18:20:000.0[facility] Dre UTZQLZCUQR9271-05-64 18:20:000.0[facility] AjrbrxdVIXDEMQRKK7113-21-32 18:20:00 0.92Me[facility] HospitalAztpnqdAAKDBACMND9728-89-69 18:20:00 Test Item Value Reference Range Interpretation Comments PT (test code = PT) 12.4 s 12.0-14.7 N [facility] CenterErkebtaZWWBSICZUG1567-66-66 18:20:0019.9[facility]
[2020-09-17] MEDS ORDERED: METOCLOPRAMIDE 10 MG/2mL INJ ONE (15:45)
[2020-09-17] MEDS ORDERED: LORazepam 2 MG/ML VIAL ONE (15:46)
[2020-09-17] MEDS ORDERED: DIPHENHYDRAMINE 50 MG/ML VIAL ONE (15:47)
[2020-09-17] MEDS ORDERED: NA CHLORIDE 0.9% 250 ML ONE (15:47)
--- NOTE | 2020-09-17 15:48 | RAD REPORT ---
EXAM DESCRIPTION: CT - Ct Stroke Brain Wo Cont - 09/17/2020 3:30 pm CLINICAL HISTORY: Confusion/alteration of awareness COMPARISON: 2015 TECHNIQUE: Computed axial tomography of the head was obtained. All CT scans are performed using dose optimization technique as appropriate and may include automated exposure control or mA/KV adjustment according to patient size. FINDINGS: An intracranial bleed is not seen . The ventricles are normal in caliber. No extra-axial fluid collection is noted. Fluid within the sinuses/ mastoids is not seen. IMPRESSION: No acute intracranial abnormality is seen. If patient's symptoms persist MRI of the bra in would be recommended. Nael of the emergency room was notified at approximately 3:10 p.m. on September 18, 2019
[2020-09-17 15:56] LABS: Absolute Lymphocytes (CBC) 0.9 K/uL (0.7-4.9); Basophils % 0.7 % (0-1.3); Hematocrit 38.4 % (36.0-45.0); Lymphocytes % 23.8 % (15.3-44.8); MPV 7.9 fL (7.6-11.3); RBC Red Blood Cell Count 4.24 M/uL (3.86-4.86)
--- NOTE | 2020-09-17 16:01 | RAD REPORT ---
EXAM DESCRIPTION: Hernandez Single View09/17/2020 3:38 pm CLINICAL HISTORY: Chest pain COMPARISON: 2019 FINDINGS: The lungs appear clear of acute infiltrate. The heart is normal size. A central venous li ne has its tip in the superior vena cava IMPRESSION: No acute abnormalities displayed
[2020-09-17 16:03] LABS: Protime INR 1.08
[2020-09-17 16:15] LABS: ALT/SGPT 16 U/L (12-78); AST/SGOT 11 U/L (15-37); Albumin 3.7 g/dL (3.4-5.0); Alkaline Phosphatase 124 U/L (45-117); BUN Blood Urea Nitrogen 14 mg/dL (7-18); Bicarbonate 24 mmol/L (21-32); Bilirubin Direct < 0.1 mg/dL (0-0.2); Bilirubin Total 0.3 mg/dL (0.2-1.0); Glucose Level 97 mg/dL (74-106); Magnesium 2.2 mg/dL (1.8-2.4); NT PRO-BNP 157 pg/mL (<125); Potassium 4.3 mmol/L (3.5-5.1); Sodium Level 140 mmol/L (136-145); Troponin (Emerg Dept Use Only) < 0.02 ng/mL (0.0-0.045)
--- NOTE | 2020-09-17 16:22 | RAD REPORT ---
EXAM DESCRIPTION: CT - C Spine Wo Con - 09/17/2020 4:06 pm CLINICAL HISTORY: Fall with neck injury COMPARISON: 2011 TECHNIQUE: Computed axial tomography of the cervical spine were obtained with sagittal and coronal r econstruction images generated and reviewed. All CT scans are performed using dose optimization technique as appropriate and may include automated exposure control or mA/KV adjustment according to patient size. FINDINGS: A cervical fracture is not seen. No dislocation. A high-grade stenosis is not seen. IMPRESSION: A cervical fracture is not seen. If the patient continues have symptoms to suggest spinal cord/spinal canal pathology then MRI would b e recommended.
--- NOTE | 2020-09-17 18:26 | ER ---
Nurse's Notes [facility] Name: Maribel Soto Age: 55 yrs Sex: Female : 1965 Arrival Date: 09/17/2020 Time: 14:33 Bed 4 Private MD: Diagnosis: Altered mental status, unspecified;Ataxia, unspecified Presentation: 09/17 14:47 Chief complaint: Patient states: Not walking well, trouble getting the words out, 3 ll1 falls yesterday. Both hands jerking today. No fever. Coronavirus screen: Client denies travel out of the [place] in the last 14 days. At this time, the client does not indicate any symptoms associated with coronavirus-19. Ebola Screen: Patient denies travel to an Ebola-affected area in the 21 days before illness onset. Initial Sepsis Screen: Does the patient meet any 2 criteria? HR > 90 bpm. Does the patient have a suspected source of infection? No. Patient's initial sepsis screen is negative. Risk Assessment: Do you want to hurt yourself or someone else? Patient reports no desire to harm self or others. Onset of symptoms was September 16, 2020. 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 - Social history:: Smoking status: Patient denies any tobacco usage or history of. Screenin:41 Abuse screen: Denies threats or abuse. Denies injuries from another. Nutritional hb screening: No deficits noted. Tuberculosis screening: No symptoms or risk factors identified. Fall Risk Total Wooten Fall Scale indicates Low Risk Score (25-44 pts). Fall prevention measures have been instituted. Side Rails Up X 2 Frequent Obs/Assesments occuring As available Patient and Family Educated on Fall Prevention Program and strategies. Assessment: 15:30 General: Appears in no apparent distress. Behavior is calm, cooperative. Pain: Pain hb currently is 8 out of 10 on a pain scale. Neuro: Level of Consciousness is awake, alert, obeys commands, Oriented to person, place, time, situation, Reports dizziness, headache. Cardiovascular: Patient's skin is warm and dry. Rhythm is regular. Respiratory: Respiratory effort is even, unlabored, Respiratory pattern is regular, symmetrical. GI: No signs and/or symptoms were reported involving the gastrointestinal system. : No signs and/or symptoms were reported regarding the genitourinary system. EENT: No signs and/or symptoms were reported regarding the EENT system. Derm: Skin is pink, warm \T\ dry. Musculoskeletal: Reports upper back/neck pain. 16:30 Reassessment: Patient appears in no apparent distress at this time. Patient and/or hb family updated on plan of care and expected duration. Pain level reassessed. Patient is alert, oriented x 3, equal unlabored respirations, skin warm/dry/pink. 17:10 Reassessment: Patient appears in no apparent distress at this time. Patient and/or hb family updated on plan of care and expected duration. Pain level reassessed. Patient is alert, oriented x 3, equal unlabored respirations, skin warm/dry/pink. 17:57 Reassessment: Ambulated patient as ordered, pt noted to be very unsteady and assisted hb back to bed. RYANNE Mack notified. 18:27 Reassessment: Patient appears in no apparent distress at this time. Patient and/or hb family updated on plan of care and expected duration. Pain level reassessed. Patient is alert, oriented x 3, equal unlabored respirations, skin warm/dry/pink. Admission ordered, awaiting hospitalist at this time. 20:00 Reassessment: Patient appears in no apparent distress at this time. Patient and/or wh family updated on plan of care and expected duration. Pain level reassessed. Patient is alert, oriented x 3, equal unlabored respirations, skin warm/dry/pink. Vital Signs: 14:47 BP 73 / 56; Pulse 97; Resp 18; Temp 97.6; Pulse Ox 100% ; Weight 108.86 kg; Height 5 ll1 ft. 9 in. (175.26 cm); Pain 8/10; 15:14 BP 124 / 85; Pulse 76; Resp 14; Pulse Ox 100% on R/A; mt 16:51 BP 99 / 69; Pulse 68; Resp 15; Pulse Ox 100% ; hb 17:44 BP 114 / 74; Pulse 62; Resp 12; Pulse Ox 97% ; sv 18:40 BP 129 / 93; Pulse 65; Resp 14; Pulse Ox 99% on R/A; hb 21:00 BP 123 / 73; Pulse 64; Resp 18; Pulse Ox 99% on R/A; wh 14:47 Body Mass Index 35.44 (108.86 kg, 175.26 cm) ll1 ED Course: 14:33 Patient arrived in ED. mr 14:50 Triage completed. ll1 14:51 Arm band placed on. ll1 15:09 Frederick Sullivan PA is PHCP. jmm 15:09 Rishabh Bonilla MD is Attending Physician. jmm 15:30 CT Stroke Brain w/o Contrast In Process Unspecified. EDMS 15:31 Desirae Hernandez, JAYDEN is Primary Nurse. hb 15:38 XRAY Chest (1 view) In Process Unspecified. EDMS 15:45 Initial lab(s) drawn, by vt, sent to lab. X-ray(s) taken. Inserted saline lock: 22 jp3 gauge in left wrist, using aseptic technique. Blood collected. 15:45 Patient maintains SpO2 saturation greater than 95% on room air. jp3 15:51 Bed in low position. Call light in reach. Side rails up X2. Warm blanket given. Verbal jp3 reassurance given. Diet: Patient is NPO. hospital monitor on. Pulse ox on. NIBP on. 16:00 EKG done, by ED staff, reviewed by Frederick PEARL. jp3 16:06 CT C Spine In Process Unspecified. EDMS 18:25 Reece Lr MD is Hospitalizing Provider. jmm 18:29 COVID swab sent to lab. jp3 21:27 No provider procedures requiring assistance completed. Patient admitted, IV remains in place. Administered Medications: 15:59 Drug: Ativan (LORazepam) 1 mg Route: IVP; Site: left wrist; hb 16:30 Follow up: Response: No adverse reaction hb 15:59 Drug: diphenhydrAMINE 12.5 mg Route: IVP; Site: left wrist; hb 16:30 Follow up: Response: No adverse reaction hb 16:00 Drug: Reglan (metoCLOPramide) 10 mg Route: IVP; Site: left wrist; hb 16:30 Follow up: Response: No adverse reaction hb Outcome: 18:25 Decision to Hospitalize by Provider. shae 21:27 Admitted to Tele accompanied by tech, via stretcher, room 422, with chart, Report called to Jannet Joel RN 21:27 Condition: stable 21:27 Instructed on the need for admit. 21:30 Patient left the ED. Signatures: Dispatcher [employer] Courtney Cancino, Frederick Cartagena RN, PA PA jmm Rivera, Mary mr Baxter, Heather, RN RN hb Thompson, Moriah mt Habalo, Winsy, RN RN Moses Mike jp3 Compa Harrison RN RN ll1
--- NOTE | 2020-09-17 18:26 | EDPHYS ---
Physician Documentation [facility] Name: Maribel Soto Age: 55 yrs Sex: Female : 1965 Arrival Date: 09/17/2020 Time: 14:33 Bed 4 Private MD: ED Physician Rishabh Bonilla HPI: 09/17 15:31 This 55 yrs old Female presents to ER via Wheelchair with complaints of Fall jmm Injury. 15:31 The patient's problem is reported as seizure, speech changes. Onset: The jmm symptoms/episode began/occurred acutely, last night. The symptoms are alleviated by nothing. The symptoms are aggravated by nothing. This is a 55 year old female with a history of seizures, fibromyalgia that presents to the ED with increased seizure frequency over the past 3 days along with episodes of sleep walking which are new. Patient states last night having a fall, hitting the right side of her head and neck. Patient states after the episode she had difficulty finding words which is new. Patient states she also suffers from complex migraines and states having an aura prior to episodes. . 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 - Social history:: Smoking status: Patient denies any tobacco usage or history of. ROS: 15:31 Constitutional: Negative for fever, chills, and weight loss, Cardiovascular: Negative jmm for chest pain, palpitations, and edema, Respiratory: Negative for shortness of breath, cough, wheezing, and pleuritic chest pain. 15:31 Neuro: Positive for seizure activity, speech changes. 15:31 All other systems are negative. Exam: 15:31 Radiologist reports: Negative jmm 15:31 Constitutional: This is a well developed, well nourished patient who is awake, alert, and in no acute distress. Head/Face: atraumatic. Eyes: EOMI, no conjunctival erythema appreciated ENT: Moist Mucus Membranes Neck: Trachea midline, Supple Chest/axilla: Normal chest wall appearance and motion. Cardiovascular: Regular rate and rhythm. No edema appreciated Respiratory: Normal respirations, no respiratory distress appreciated Abdomen/GI: Non distended, soft Back: Normal ROM Skin: General appearance color normal MS/ Extremity: Moves all extremities, no obvious deformities appreciated, no edema noted to the lower extremities Neuro: Awake and alert, normal gait Psych: Behavior is normal, Mood is normal, Patient is cooperative and pleasant Vital Signs: 14:47 BP 73 / 56; Pulse 97; Resp 18; Temp 97.6; Pulse Ox 100% ; Weight 108.86 kg; Height 5 ll1 ft. 9 in. (175.26 cm); Pain 8/10; 15:14 BP 124 / 85; Pulse 76; Resp 14; Pulse Ox 100% on R/A; mt 16:51 BP 99 / 69; Pulse 68; Resp 15; Pulse Ox 100% ; hb 17:44 BP 114 / 74; Pulse 62; Resp 12; Pulse Ox 97% ; sv 18:40 BP 129 / 93; Pulse 65; Resp 14; Pulse Ox 99% on R/A; hb 21:00 BP 123 / 73; Pulse 64; Resp 18; Pulse Ox 99% on R/A; wh 14:47 Body Mass Index 35.44 (108.86 kg, 175.26 cm) ll1 MDM: 15:14 Patient medically screened. [facility] 18:23 Data reviewed: vital signs, nurses notes. Counseling: I had a detailed discussion with [facility] the patient and/or guardian regarding: the historical points, exam findings, and any diagnostic results supporting the discharge/admit diagnosis, lab results, radiology results, the need for further work-up and treatment in the hospital. ED course: Patient has an unsteady gait. Will admit for further evaluation. I discussed the patient with Benjy Gamboa whom accepted the patient for admission. . 09/17 15:11 Order name: Basic Metabolic Panel [facility] 09/17 15:11 Order name: CBC with Diff [facility] 09/17 15:11 Order name: LFT's [facility] 09/17 15:11 Order name: Magnesium [facility] 09/17 15:11 Order name: NT PRO-BNP; Complete Time: 16:16 [facility] 09/17 15:11 Order name: PT-INR; Complete Time: 16:06 [facility] 09/17 15:08 Order name: CT Stroke Brain w/o Contrast; Complete Time: 15:54 09/17 15:11 Order name: Troponin (emerg Dept Use Only); Complete Time: 16:16 [facility] 09/17 15:12 Order name: Basic Metabolic Panel; Complete Time: 16:16 [facility] 09/17 15:12 Order name: CBC with Automated Diff; Complete Time: 16:06 [facility] 09/17 15:12 Order name: Liver (Hepatic) Function; Complete Time: 16:16 [facility] 09/17 15:12 Order name: Magnesium; Complete Time: 16:16 [facility] 09/17 19:14 Order name: SARS-COV-2 RT PCR; Complete Time: 19:18 [facility] 09/17 15:11 Order name: XRAY Chest (1 view); Complete Time: 16:06 [facility] 09/17 15:11 Order name: EKG; Complete Time: 15:12 [facility] 09/17 15:11 Order name: Cardiac monitoring; Complete Time: 15:52 [facility] 09/17 15:11 Order name: EKG - Nurse/Tech; Complete Time: 15:52 [facility] 09/17 15:11 Order name: IV Saline Lock; Complete Time: 15:52 [facility] 09/17 15:11 Order name: Labs collected and sent; Complete Time: 15:52 [facility] 09/17 15:11 Order name: O2 Per Protocol; Complete Time: 15:52 [facility] 09/17 15:11 Order name: O2 Sat Monitoring; Complete Time: 15:52 [facility] 09/17 15:29 Order name: CT C Spine; Complete Time: 16:25 [facility] 09/17 17:13 Order name: Misc. Order; Complete Time: 17:56 [facility] 09/17 17:13 Order name: Misc. Order: ambulate patient; Complete Time: 17:56 [facility] 09/17 19:26 Order name: CONS Physician Consult EDUT Administered Medications: 15:59 Drug: Ativan (LORazepam) 1 mg Route: IVP; Site: left wrist; hb 16:30 Follow up: Response: No adverse reaction hb 15:59 Drug: diphenhydrAMINE 12.5 mg Route: IVP; Site: left wrist; hb 16:30 Follow up: Response: No adverse reaction hb 16:00 Drug: Reglan (metoCLOPramide) 10 mg Route: IVP; Site: left wrist; hb 16:30 Follow up: Response: No adverse reaction hb Disposition: 09/17/20 18:25 Hospitalization ordered by Reece Lr for Observation. Preliminary diagnosis are Altered mental status, unspecified, Ataxia, unspecified. - Bed requested for Telemetry/MedSurg (observation). - Status is Observation. - Condition is Stable. - Problem is new. - Symptoms are unchanged. Addendum: 09/20/2020 17:32 Co-signature as Attending Physician, Rishabh Bonilla MD. crow wilcox Signatures: Dispatcher [employer] [facility] Bonita Collazo, RN JAYDEN Rishabh Bonilla MD MD pkl Mickail, Joel, PA PA [facility] Desirae Hernandez, RN JAYDEN Ashok Bravo, RN JAYDEN Compa Harrison, RN RN ll1 Corrections: (The following items were deleted from the chart) 09/17 18:24 17:59 CORONAVIRUS+MR.LAB.BRZ ordered. [facility] EDUT 19:36 18:25 Hospitalization Ordered by Reece Lr MD for Observation. Preliminary diagnosis is Altered mental status, unspecified; Ataxia, unspecified. Bed requested for Telemetry/MedSurg (observation). Status is Observation. Condition is Stable. Problem is new. Symptoms are unchanged. [facility] 21:30 19:36 09/17/2020 18:25 Hospitalization Ordered by Reece Lr MD for Observation. Preliminary diagnosis is Altered mental status, unspecified; Ataxia, unspecified. Bed requested for Telemetry/MedSurg (observation). Status is Observation. Condition is Stable. Problem is new. Symptoms are unchanged. dw
--- NOTE | 2020-09-17 20:52 | P.HP ---
Certification for Inpatient Patient admitted to: Observation With expected LOS: <2 Midnights Patient will require the following post-hospital care: None Practitioner: I am a practitioner with admitting privileges, knowledge of patient current condition, hospital course, and medical plan of care. Services: Services provided to patient in accordance with Admission requirements found in Title 42 Section 412.3 of the Code of Federal Regulations Patient History Date of Service: 09/17/20 Primary Care Provider: Capo Reason for admission: seizures History of Present Illness: Ms. Soto is a 55 yo F with history of seizures, fibromyalgia, SLE, Bryce's and gastroparesis here today for reported seizure yesterday. She said she fell while she was in the bathroom and hit her head. She reports dizziness, headaches, word finding difficulty, weakness, confusion, numbness in her feet, sleepwalking. She denies hemiparesis, aphasia, changes in vision. At presentation has an unsteady gait, AOx4, able to answer questions and use her cell phone. At baseline, walks with a walker. Not on current medication for seizures. CT Head, CXR wnl. Allergies Penicillins Allergy (Intermediate, Verified 07/23/11 12:28) Hives/Rash baclofen Allergy (Verified 07/20/12 08:13) Itching/Hives/Rash oxymorphone [From Opana] Allergy (Unverified 09/12/15 10:48) Unknown ondansetron HCl [From Zofran] Adverse Reaction (Mild, Verified 04/21/12 13:08) vomitting eggs Allergy (Mild, Uncoded 09/03/13 20:07) Nausea/Vomiting Zo Allergy (Uncoded 05/27/15 12:56) Unknown Zofran (as hydrochloride) Allergy (Uncoded 09/24/14 11:28) Unknown Home Medications: Promethazine Tab [Phenergan*] 50 mg PO QID 11/21/12 Hyoscyamine Sulfate 0.125 mg PO PRN 04/03/13 Naratriptan HCl [Amerge] 2.5 mg PO BID PRN 04/03/13 Diphenhydramine [Benadryl*] 1 cap PO BID PRN 09/04/13 Hydroxychloroquine [Plaquenil*] 200 mg PO DAILY 09/04/13 Gabapentin 600 mg PO BEDTIME 09/01/19 Hydromorphone [Dilaudid*] 4 mg PO Q4H 09/01/19 - Past Medical/Surgical History Diabetic: No -: lupus -: diverticulitis -: fibromyalgia -: chronic fatigue -: Hashimotos's hypothyroidism -: anxiety, depression, bi-polar -: chronic migraines -: neuropathy -: asthma -: seizures -: partial hysterectomy -: gastric bypass -: appendectomy -: hernia repair x2 -: bleeding ulcer -: gastric bypass repair -: port a cath left chest - Family History Father -: Hypertension, Other (see notes) Notes: Colitis Mother -: Other (see notes) Notes: Bad back - Social History Smoking Status: Never smoker Alcohol use: No CD- Drugs: No Caffeine use: Yes Place of Residence: Home Review of Systems General: Weakness, As per HPI Eyes: Unremarkable ENT: Unremarkable Respiratory: Unremarkable Cardiovascular: Unremarkable Gastrointestinal: Unremarkable Genitourinary: Unremarkable Musculoskeletal: Unremarkable Integumentary: Unremarkable Neurological: Weakness, Numbness, Incoordination, Confusion, Seizures, As per HPI Lymphatics: Unremarkable Physical Examination - Physical Exam General: Alert, In no apparent distress, Oriented x3, Cooperative HEENT: Atraumatic, Normocephalic, PERRLA, Mucous membr. moist/pink, EOMI, Sclerae nonicteric Neck: Supple, 2+ carotid pulse no bruit, JVD not distended, No Thyromegaly, No LAD Respiratory: Clear to auscultation bilaterally, Normal air movement Cardiovascular: No edema, Normal pulses, Regular rate/rhythm, Normal S1 S2, No gallops, No rubs, No murmurs Capillary refill: <2 Seconds Gastrointestinal: Normal bowel sounds, Soft and benign, Non-distended, No ascites, No tenderness, No masses, No rebound, No guarding Musculoskeletal: No clubbing, No swelling, No contractures, No erythema, No tenderness, No warmth Integumentary: No rashes, No breakdown, No significant lesion, No tenderness/swelling, No erythema, No warmth, No cyanosis Neurological: Normal speech, Normal strength at 5/5 x4 extr, Normal tone, Sensation intact, Cranial nerves 3-12 intact, Abnormal gait Lymphatics: No axilla or inguinal lymphadenopathy - Studies Laboratory Data (last 24 hrs) 09/17/20 15:43: PT 12.4, INR 1.08 09/17/20 15:43: WBC 3.80 L, Hgb 12.9, Hct 38.4, Plt Count 252 09/17/20 15:43: Sodium 140, Potassium 4.3, BUN 14, Creatinine 1.16, Glucose 97, Magnesium 2.2, Total Bilirubin 0.3, AST 11 L, ALT 16, Alkaline Phosphatase 124 H Assessment and Plan - Plan Assessment Reported weakness and unsteady gait, History of seizures Fibromyalgia SLE Bryce's hypothyroidism Gastroparesis Plan neurology consulted, MRI w/wo scheduled for the AM, possible EEG. Neurologist is Dr. Franco, last MRI and EEG done 07/2019. UDS pending Ativan PRN for seizures will restart home medications Discharge Plan: Home Plan to discharge in: 24 Hours - Advance Directives Does patient have a Living Will: No Does patient have a Durable POA for Healthcare: No - Code Status/Comfort Care Code Status Assessed: Yes (full code) Critical Care: No Time Spent Managing Pts Care (In Minutes): 70
[2020-09-17] MEDS ORDERED: ACETAMINOPHEN 500 MG TAB PO PRN (22:58)
[2020-09-18 00:15] LABS: Thyroid Stimulating Hormone 2.5 uIU/mL (0.360-3.740)
[2020-09-18] MEDS ORDERED: HYDROMORPHONE ORAL 4 MG TAB PO PRN (00:56)
[2020-09-18] MEDS ORDERED: PROMETHAZINE 25 MG TABLET PO PRN (00:56)
[2020-09-18 01:45] VITALS: BMI 35.4
[2020-09-18] MEDS ORDERED: HYOSCYAMINE SULF 0.125 MG TAB PO PRN (02:00)
[2020-09-18 02:48] LABS: Barbiturates NEGATIVE (NEGATIVE); Benzodiazepines NEGATIVE (NEGATIVE); Cocaine NEGATIVE (NEGATIVE); METHAMPHETAM NEGATIVE (NEGATIVE); Methadone NEGATIVE (NEGATIVE); Opiates NEGATIVE (NEGATIVE); Phencyclidine NEGATIVE (NEGATIVE); THC Cannibis NEGATIVE (NEGATIVE)
[2020-09-18] MEDS: LORazepam 2 MG/ML VIAL IV PRN ×2 (03:58→14:48)
[2020-09-18 04:04] LABS: Absolute Lymphocytes (CBC) 1.1 K/uL (0.7-4.9); Hematocrit 38.5 % (36.0-45.0); Lymphocytes % 30.7 % (15.3-44.8); RBC Red Blood Cell Count 4.22 M/uL (3.86-4.86)
[2020-09-18 04:06] LABS: Urine Appearance CLEAR (Clear); Urine Bilirubin NEGATIVE (Negataive); Urine Blood NEGATIVE (Negative); Urine Color YELLOW (Yellow); Urine Glucose NEGATIVE (Negative); Urine Protein NEGATIVE (Negative); Urine Urobilinogen 0.2 mg/dL (0.2-1.0)
[2020-09-18 04:25] LABS: Albumin 3.4 g/dL (3.4-5.0); Bilirubin Total 0.4 mg/dL (0.2-1.0); Magnesium 2.2 mg/dL (1.8-2.4); Phosphorus 2.8 mg/dL (2.5-4.9); Protein, Total 6.4 g/dL (6.4-8.2)
[2020-09-18 04:28] LABS: Urine Microscopic Reflex ORDER UMIC
[2020-09-18] MEDS ORDERED: TIZANIDINE 4 MG TABLET PO PRN (05:28)
[2020-09-18 05:51] LABS: Urine Bacteria <20 /HPF (<20); Urine RBC <5 /HPF (NONE SEEN); Urine Urothelial Cells <5 /HPF (NONE SEEN)
[2020-09-18] MEDS: GABAPENTIN 300 MG CAP PO SCH ×2 (08:01→13:57)
[2020-09-18] MEDS ORDERED: ENOXAPARIN 40 MG/0.4 ML SQ SCH (09:00)
[2020-09-18] MEDS ORDERED: TIZANIDINE 4 MG TABLET PO SCH (09:00)
--- NOTE | 2020-09-18 09:19 | P.DS ---
Admission Date: 09/17/20 Discharge Date: 09/18/20 Primary Care Provider: Dr. Scanlon; Neurology-Dr. Appiah Disposition: ROUTINE DISCHARGE Discharge Condition: GOOD Reason for Admission: seizures Consultations: Neurology-Dr. Laboy Procedures: COVID: Negative CT Brain: FINDINGS: An intracranial bleed is not seen . The ventricles are normal in caliber. No extra-axial fluid collection is noted. Fluid within the sinuses/ mastoids is not seen. IMPRESSION: No acute intracranial abnormality is seen. CT Neck: FINDINGS: A cervical fracture is not seen. No dislocation. A high-grade stenosis is not seen. IMPRESSION: A cervical fracture is not seen. MRI Brain: FINDINGS: Several small areas of increased signal are again demonstrated within prominently deep and subcortical white matter without significant change. No abnormality hippocampal gyri seen The ventricles are normal in caliber. Diffusion-weighted/ ADC mapping sequences do not demonstrate evidence of an acute infarction. No abnormal enhancement within the brain is seen. An extra-axial fluid collection is not noted. Fluid within the sinuses/mastoids is not seen IMPRESSION: Several small areas increased signal within deep and subcortical white matter bilaterally may be secondary to ischemic changes secondary to small vessel disease, migraines or vasculitis Medical Problem List: Weakness, unsteady gait with history of seizures Fibromyalgia Lupus Bryce's Gastroparesis Migraine headaches Chronic pain Brief History of Present Illness: 55 yo female with history of seizures, fibromyalgia, lupus, Bryce and gastroparesis. Patient presented with seizure. Some weakness noted. She denies any hemiparesis, aphasia, or change in vision. Patient was admitted for observation. Hospital Course: Patient presented with weakness, unsteady gait. Patient with history of seizures, fibromyalgia, lupus, chronic headaches and chronic pain. Patient takes multiple medications including Dilaudid, zonisamide, Zanaflex, gabapentin, and medication for insomnia. Patient was seen and evaluated. CT head unremarkable. MRI brain also unremarkable for acute stroke. No further intervention required. Patient will be discharged home. Patient will continue with her home medications. Recommend follow-up with neurology as directed. Recommend follow-up with PCP in 1 week to follow-up hospitalization. Patient with history of chronic pain. Patient takes Dilaudid 4 mg every 4 hours and Zanaflex 4 mg 3 times a day. Drug screen was negative. Compliance with medication address in detail. Recommend follow-up with pain management to further address and monitor. Medications may need to be further adjusted. May need to wean off medication in the future. This can be further addressed by her resin painter. Vital Signs/Physical Exam: Temp Pulse Resp BP Pulse Ox 97.2 F 78 16 124/68 96 09/18/20 08:00 09/18/20 08:00 09/18/20 08:00 09/18/20 08:00 09/18/20 08:00 General: Alert, In no apparent distress, Oriented x3, Cooperative HEENT: Atraumatic Neck: Supple Respiratory: Clear to auscultation bilaterally, Normal air movement Cardiovascular: Normal pulses, Regular rate/rhythm Gastrointestinal: Normal bowel sounds, No tenderness, No masses, No rebound, No guarding Musculoskeletal: No erythema, No tenderness, No warmth Integumentary: No tenderness/swelling Neurological: Normal speech, Normal strength at 5/5 x4 extr, Normal tone, Normal affect Laboratory Data at Discharge: WBC 3.50 K/uL (4.3-10.9) L 09/18/20 03:33 Hgb 12.7 g/dL (12.0-15.0) 09/18/20 03:33 Hct 38.5 % (36.0-45.0) 09/18/20 03:33 Plt Count 230 K/uL (152-406) 09/18/20 03:33 PT 12.4 SECONDS (9.5-12.5) 09/17/20 15:43 INR 1.08 09/17/20 15:43 Sodium 142 mmol/L (136-145) 09/18/20 03:33 Potassium 4.0 mmol/L (3.5-5.1) 09/18/20 03:33 BUN 13 mg/dL (7-18) 09/18/20 03:33 Creatinine 1.05 mg/dL (0.55-1.3) 09/18/20 03:33 Glucose 86 mg/dL (74-106) 09/18/20 03:33 Phosphorus 2.8 mg/dL (2.5-4.9) 09/18/20 03:33 Magnesium 2.2 mg/dL (1.8-2.4) 09/18/20 03:33 Total Bilirubin 0.4 mg/dL (0.2-1.0) 09/18/20 03:33 AST 15 U/L (15-37) 09/18/20 03:33 ALT 16 U/L (12-78) 09/18/20 03:33 Alkaline Phosphatase 117 U/L (45-117) 09/18/20 03:33 Home Medications: Promethazine Tab [Phenergan*] 50 mg PO Q4HP PRN 11/21/12 Hyoscyamine Sulfate 0.125 mg PO PRN 04/03/13 Naratriptan HCl [Amerge] 2.5 mg PO BIDP PRN 04/03/13 Gabapentin 600 mg PO TID 09/01/19 Hydromorphone [Dilaudid*] 4 mg PO Q4H 09/01/19 Eszopiclone 2 mg PO BEDTIME 09/18/20 Tizanidine HCl 4 mg PO TID 09/18/20 Zonisamide 100 mg PO TID 09/18/20 Physician Discharge Instructions: Patient presented with weakness, unsteady gait. Patient with history of seizures, fibromyalgia, lupus, chronic headaches and chronic pain. Patient takes multiple medications including Dilaudid, zonisamide, Zanaflex, gabapentin, and medication for insomnia. Patient was seen and evaluated. CT head unremarkable. MRI brain also unremarkable. No further intervention required. Patient will be discharged home. Patient will continue with her home medications. Recommend follow-up with neurology as directed. Recommend follow- up with PCP in 1 week to follow-up hospitalization. Patient with history of chronic pain. Patient takes Dilaudid 4 mg every 4 hours and Zanaflex 4 mg 3 times a day. Drug screen was negative. Compliance with medication address in detail. Recommend follow-up with pain management to further address and monitor. Medications may need to be further adjusted. May need to wean off medication in the future. This can be further addressed by her resin painter. Diet: AHA Activity: Fall precautions Followup: OOT,OOT [Primary Care Provider] - Time spent managing pt's care (in minutes): 55
--- NOTE | 2020-09-18 10:48 | EKG ---
Test Date: 2020-09-17 Test Time: 15:58:03 Coverage Specialist: CLARISA MEASUREMENT RESULTS: Intervals: Rate: 75 MS: 186 QRSD: 88 QT: 394 QTc: 439 [place]: P: 23 MS: 186 QRS: 2 T: 30 INTERPRETIVE STATEMENTS: Normal sinus rhythm Normal ECG Compared to ECG 12/26/2018 12:48:35 First degree AV block no longer present Electronically Signed On 09-18-20 10:46:42 CDT by Tom Johnston
--- NOTE | 2020-09-18 15:53 | RAD REPORT ---
EXAM DESCRIPTION: MRI - Brain W/Wo Cont - 09/18/2020 3:42 pm CLINICAL HISTORY: Seizure COMPARISON: 2019 TECHNIQUE: Axial, sagittal, and coronal magnetic images of the brain were obtained. 20 cc MultiHance administered intravenously FINDINGS: Several small areas of increased signal are again demonstrated within prominently deep and subcortical white matter without significant change. No abnormality hippocampal gyri seen The ventricles are normal in caliber. Diffusion-weighted/ ADC mapping sequences do not demonstrate evidence of an acute infarction. No abnormal enhancement within the brain is seen. An extra-axial fluid collection is not noted. Fluid within the sinuses/mastoids is not seen IMPRESSION: Several small areas increased signal within deep and subcortical white matter bilaterall y may be secondary to ischemic changes secondary to small vessel disease, migraines or vasculitis
[2020-09-18 17:23] VITALS: BP 116/67; TEMP 97.3
[2020-09-18 18:36] VITALS: O2SAT 97
[2020-09-18] MEDS ORDERED: ESZOPICLONE 1 MG TAB PO SCH (21:00)
== END 2020-09-18 20:24 | disposition home or self-care (01) ==
LOC: ER 14:29 → ERHOLD 19:33 → 4TH 21:58
PROVIDERS: ADMIT Family Medicine; ATTEND Family Medicine
DX: R53.1 Weakness (principal); R26.81 Unsteadiness on feet; Z20.822 Contact with and (suspected) exposure to COVID-19; M79.7 Fibromyalgia; M32.9 Systemic lupus erythematosus, unspecified; E06.3 Autoimmune thyroiditis; K31.84 Gastroparesis; G89.29 Other chronic pain; F31.9 Bipolar disorder, unspecified; J45.909 Unspecified asthma, uncomplicated; Z98.84 Bariatric surgery status
CPT/HCPCS: 93005; 87088; 85025 ×2; 87086; 80048; 36415; 83735 ×2; 84100; 85610; 82947 ×2; 80076; 80307 ×8; 84443; 84484; 84439; 80053; 83880; 72125; 70450; 71045; 70553; 94760 ×2; 96375; 96374; 99285; U0003; A9577; J2765; J1200; J1650; J7050; 81003; 81015; G0378; Q0169

== ENCOUNTER 2020-10-30 19:54 | Emergency (ER) | payer OTHER ==
--- OUTSIDE RECORDS SUMMARY | 2020-10-30 20:00 | XMS REPORT | Continuity of Care Document ---
:1965 Author Organization [facility] t Address [address] [place] [address] Care Team Providers Name Role Phone Radha Carver MD Primary Care Physician aCyla Jesus MD Attending Clinician Shad GRIFFITH Attending Clinician Ki CANO Attending Clinician Unavailable Hamzah Franco DO Attending Clinician Juliocesar CANO Attending Clinician Unavailable Andreia Walsh Attending Clinician Andreia Walsh Admitting Clinician Payers Payer Name Policy Type Policy Effective Date Expiration Date Sour ce Number MEDICAREMEDICARE PART [id number] 2010 T[place] liz [place] AND 00:00:00 Mormonism [id number]/05/2010- [place] Condition Condition Condition Status Onset Resolution Last Treating Co mments Source Name Details Category Date Date Treatment Clinician Date ABDOMINAL Diagnosis Active 2013-09-14 Memoria PAIN 09-13 09:19:00 l GASTRITIS 00:00: Dre ABDOMINAL 00 PAIN GASTRITIS Active 09/13/2013 [facility] VOMITING, Diagnosis Active 2013-09-13 Memoria WEAKNESS 09-13 14:41:00 l 00:00: [place] VOMITING, 00 WEAKNESS Active 09/13/2013 [facility] ABDOMINAL Diagnosis Active 2011-12-04 Memoria PAIN,VOMIT - 12:49:00 l ING 00:00: Dre ABDOMINAL 00 PAIN,VOMIT ING Active 12/03/2011 [facility] Asthma Problem Resolve 2013-09-26 Bipin bernardo (disorder) d 20:43:58 l Asthma [place] (disorder) Resolved Problem 09/26/2013 [facility] Chronic Problem Resolve 2013-09-26 Mem oria fatigue d 20:43:58 l syndrome Chronic Vani nn (disorder) fatigue syndrome (disorder) Resolved Problem 09/26/2013 [facility] Diverticul Problem Resolve 2013-09-26 Memoria ar disease d 20:43:58 l (disorder) Uday n Diverticul ar disease (disorder) Resolved Problem 09/26/2013 [facility] Fibromyosi Problem Resolve 2013-09-26 Memoria tis d 20:43:58 l (disorder) Uday n Fibromyosi tis (disorder) Resolved Problem 09/26/2013 [facility] Lupus Problem Resolve 2013-09-26 Bipin bernardo erythemato d 20:43:58 l chace Lupus [place] (disorder) erythemato chace (disorder) Resolved Problem 09/26/2013 [facility] Migraine Problem Resolve 2013-09-26 Me moria (disorder) d 20:43:58 l Migraine Uday n (disorder) Resolved Problem 09/26/2013 [facility] Ulcer Problem Resolve 2013-09-26 Bipin bernardo (disorder) d 20:43:58 l Ulcer [place] (disorder) Resolved Problem 09/26/2013 [facility] Headache Problem Active 2011-12-12 Mem oria 08:58:08 l Headache Uday n Active Problem 12/12/2011 [facility] Lupus Problem Active 2011-12-12 Memor ia 08:58:08 l Lupus Dre Active Problem 12/12/2011 [facility] Pain Problem Active 2011-12-12 Memor ia 08:58:08 l Pain [place] Active Problem 12/12/2011 [facility] Bipolar Problem Active 2013-09-26 Bipin bernardo disorder 20:43:58 l (disorder) Bipolar Her wallace disorder (disorder) Active Problem 09/26/2013 [facility] Headache Problem Active 2013-09-26 Mem oria (finding) 20:43:58 l Headache Uday n (finding) Active Problem 09/26/2013 [facility] Pain Problem Active 2013-09-26 Memor ia (finding) 20:43:58 l Pain Dre (finding) Active Problem 09/26/2013 [facility] ADMINISTRT Diagnosis Active 2011-12-04 Memoria VE ENCOUNT 12:49:00 l NOS Dre ADMINISTRT VE ENCOUNT NOS Active [facility] ABDMNAL Diagnosis Active 2013-09-14 Me moria PAIN 09:19:00 l UNSPCF ABDMNAL [place] SITE PAIN UNSPCF SITE Active [facility] GASTRITIS Diagnosis Active 2013-09-14 Memoria NEC 09:19:00 l Dre GASTRITIS NEC Active [facility] Anemia Problem Resolve 2013-09-26 Bipin bernardo (disorder) d 20:43:58 l Anemia Dre (disorder) Resolved Problem 09/26/2013 [facility] Allergies, Adverse Reactions, Alerts Allergy Allergy Status Severity Reaction(s) Onset Inactive Treating Comm ents Source Name Type Date Date Clinician Baclofen Propensi Active Swelling 2019- [place] to - Methodi adverse 00:00: st reaction 00 s to drug Penicill Propensi Active Unknown [place] ty to Reaction 06-07 Methodi adverse 00:00: st reaction 00 s to drug Ondanset Propensi Active GI [place] [facility] ty to Intolerance 06-07 Meth rita adverse 00:00: st reaction 00 s to drug Food Food Active Memoria Eggs Eggs l [place] penicill penicill Active Memori a ins ins l Dre Zofran Zofran Active Memoria l Dre baclofen baclofen Active Memori a l [place] Family History Family Member Diagnosis Comments Start Date Stop Date Source Natural father Hypertension [place] [employer] Paternal grandmother Diabetes [place] [employer] Social History Social Habit Start Date Stop Date Quantity Comments Source History [facility] Meth odist Alcohol Std Drinks History [facility] Meth od[facility] Alcohol Binge Tobacco use and 2019-12-03 2019-12-03 Never used [facility] ethodist exposure 00:00:00 00:00:00 Alcohol intake 2019-12-03 2019-12-03 Lifetime [place] Me thodist 00:00:00 00:00:00 non-drinker (finding) History SDOH 2019-06-07 2019-06-07 1 [place] Meth odist Alcohol Frequency 00:00:00 00:00:00 [birth year] [facility] ethodist 00:00:00 00:00:00 Smoking Status Start Date Stop Date Source Never smoker [place] Abilio t Medications Ordered Filled Start Stop Current Ordering Indication Dosage Frequency Signature Comments Components Source Medication Medication Date Date Medication? Clinician (SIG) Name Name zonisamide Yes Migraine TAKE THREE [place] (ZONEGRAN) 4-23 with aura (3) Meth rita 100 MG 00:00: and without CAPSULE(S) st capsule 00 status BY MOUTH migrainosus ONCE A , not DAY. intractable zonisamide 2020- No Migraine TAKE THREE [place] (ZONEGRAN) 3-26 04-23 with aura (3) Met hodi 100 MG 00:00: 00:00 and without CAPSULE(S) st capsule 00 :00 status BY MOUTH migrainosus ONCE A , not DAY. intractable zonisamide 2020- No Migraine TAKE THREE [place] (ZONEGRAN) 2- 03- with aura (3) Met hodi 100 MG 00:00: 00:00 and without CAPSULE(S) st capsule 00 :00 status BY MOUTH migrainosus ONCE A , not DAY. intractable zonisamide 2020- No Migraine TAKE THREE [place] [facility] 06-25- with aura (3) Met hodi 100 MG 00:00: 00:00 and without CAPSULE(S) st capsule 00 :00 status BY MOUTH migrainosus ONCE A , not DAY. intractable zonisamide 2020- No [facility] ([facility] 05-29 with aura THREE (3) Methodi 100 MG 00:00: 00:00 and without CAPSULE(S) st capsule 00 :00 status BY MOUTH migrainosus ONCE A , not DAY. intractable levothyroxi 2019-05- No 200ug QD Take 200 [place] ne 07-03 mcg by Methodi (SYNTHROID) 12:47: 00:[address] 200 mcg 00 :00 daily. tablet galcanez[place] 2019-05- No Migraine 240mg Inject 240 [place] b-gnlm 07-03- with aura mg under Met hodi (Emgality 00:00: 23:[address] skin [address] Syringe) 00 :00 status once for 1 120 mg/mL migrainosus dose. syringe , not intractable zonisamide 2019-05- No Migraine TAKE [place] (ZONEGRAN) 06-24- with aura THREE (3) Methodi 100 MG [...] st 250 MG 41 daily. tablet zonisamide 2019-05 2020- No Migraine TAKE THREE [facility] (ZONEGRAN) 05-27 [...] promethazin 2019-05 Yes 50mg Take 50 mg [place] e 0-27 by mouth. Methodi (PHENERGAN) 15:29: [...] acute pain 4mg Q4H Take 4 mg Lui NE 0-27 by mouth Methodi (DILAUDID) 15:29: every 4 st 4 MG tablet 22 (four) hours as needed for moderate pain .acute pain. zonisamide 2019-05- No Migraine TAKE THREE [place] (ZONEGRAN) 0-05 03-27 with aura (3) Met hodi 100 MG 00:00: 00:00 and without CAPSULE(S) st capsule 00 :00 status BY MOUTH migrainosus ONCE A , not DAY. intractable zonisamide 2019- No Migraine 300mg QD Take 3 [place] (Zonegran) 8-02-27 with aura capsules Methodi 100 MG 00:00: 00:00 and without ([address] capsule 00 :00 status total) by migrainosus mouth , not daily. intractable zonisamide 2019- No Migraine 100mg QD Take 1 [place] ([facility] Br[facility]ong[facility]) 10-11 with aura capsule Methodi 100 MG 00:00: 00:00 and without ([address] capsule 00 :00 status total) by migrainosus mouth , not daily. intractable gabapentin Yes Migraine 600mg [id number] Take 1 [place] (NEURONTIN) 09-23 with aura [id number] tablet Methodi 600 mg 00:00: and without 3D (600 mg s t tablet 00 status total) by migrainosus mouth 3 , not (three) intractable times a day. heparin Yes Notes: Memoria flush 09-24 (Same as: l 19:05: Heparin Lock Flush) heparin, No 500 unit, Bipin bernardo porcine 09-24 Route: IV, l 18:41: ONCE, Dosing Weight 72.727, kg, Start date: 09/24/13 13:41:00, Stop date: 09/24/13 13:41:00 Acetaminoph Yes 15 ml, PO, Memoria en 21.7 02 Q6H, for l MG/ML / 18:19: pain, # Dre Hydrocodone 00 240 mL, 0 Bitartrate Refill(s) 0.5 MG/ML Oral Solution [Hycet] Sucralfate No Notes: Memor ia 100 MG/ML 09-22 Enteral l Oral 23:00: feeds may interfere with the absorption of this medication [...] 9:32:00 Ketorolac No 4 days Memor ia - l 23:00: Hydromorpho No 6 mg, 30 Me moria ne 4-28 mL, Route: l 22:30: IV, BASE REMOVER Dose: 0.2 mg, BASE REMOVER Lockout: 10 minutes, 4 Hour Limit (In MG): 6, Drug Form: INJ, Continuous , Start date: 09/20/13 17:30:00, Duration: 30 day, Stop date: 10/20/13 17:29:00 Naloxone No Notes: Memoria 09-20 Same as l 22:18: Narcan enalaprilat No Notes: Bipin bernardo 09-20 (Same as: l 22:18: Vasotec-IV ) Ondansetron No Notes: Bipin bernardo 09-20 (Same as: l 22:18: Zofran) Promethazin No Notes: Do M emoria e 09-20 not give l 22:18: IV push. (Same as: Phenergan) Calcium No 1,000 mL, Memor ia Chloride 09-20 Rate: 125 l 0.0014 22:18: ml/hr, [place] MEQ/ML / 00 Infuse Potassium over: 8 Chloride hr, Route: 0.004 IV, Dosing MEQ/ML / Weight Sodium 72.727 kg, Chloride Total 0.103 Volume: MEQ/ML / 1,000, Sodium Start Lactate date: 0.028 09/20/13 MEQ/ML 17:18:00, Injectable Duration: Solution 30 day, Stop date: 10/20/13 17:17:00 Ofirmev No Notes: Memoria - Infuse l 22:17: over 15 Dre 00 minutes Do not exceed 4gm/day of acetaminop hen Promethazin No Notes: Do M emoria e 09-20 not give l 20:54: IV push. (Same as: Phenergan) Meperidine No Notes: Memor ia 09-20 (Same As: l 20:54: Demerol) Flumazenil No Notes: Memor ia 09-20 (Same as: l 20:54: Romazicon) Naloxone No Notes: Memoria - Same as l 20:54: Narcan Labetalol No Notes: Memori a 09-20 (Same as: l 20:54: Normodyne, Trandate) Push over 2 minutes Give bolus over 2-3 minutes. Hydromorpho No Notes: Bipin bernardo ne 09-20 Same as: l 20:54: Dilaudid Morphine No Notes: Memoria 09-20 (Same l 20:54: as:MORPhin e Sulfate) Exparel No Notes: Memoria - (Same as: l 14:00: Exparel) NOT FOR [...] emoria 09-20 Rate: 100 l 05:00: ml/hr, Dre 00 Infuse over: 10 hr, Route: IV, Dosing [...] n 09-18 Non-Formul l 14:00: cecelia Drug [place] - Give with Food (Same as:Poly-Vi -Greer [...] No Notes: Bipin bernardo 50 MG Oral 25 (Same As: l Tablet 16:50: Imitrex) Dre [Imitrex] 00 Tylenol No Notes: Do Memor ia 4-25 not exceed l 16:49: 4 gm/day. Dre (Same as: Tylenol) Klonopin No Notes: Memoria 4-25 (Same As: l 14:00: KlonoPIN) Diphenhydra No Notes: Bipin bernardo mine 4-25 (Same as: l 11:00: Benadryl) Ketorolac No 4 days Memor ia 4-25 l 10:49: [place] 00 Sumatriptan No Notes: Bipin bernardo 50 MG Oral 4-25 (Same As: l Tablet 10:46: Imitrex) Dre [Imitrex] 00 Relistor No Notes: Memoria 4-25 Same as: l 02:00: Relistor Restricted to Palliative Care Miralax No Notes: Memoria 4-24 Dissolve l 14:00: in 8 oz of water or juice. (Same as: Miralax) Docusate No Notes: Memoria Sodium 100 -23 (Same as: l MG Oral 22:00: Colace) Capsule (Do Not [Colace] Crush) Plaquenil No Notes: Memori a 4-23 (Same as: l 17:54: Plaquenil) Antioxidant No 30 mL, Bipin bernardo Multiple - Route: PO, l Vitamins 14:00: Dosing and Weight Minerals 72.727, oral liquid kg, Daily, Start date: 09/15/13 9:00:00, Duration: 30 day, Stop date: 10/14/13 9:00:00 Reglan No Notes: Memoria 4- (Same as: l 23:00: Reglan) Thiamine No Notes: Memoria 4-22 (Same As: l 15:00: Vitamin B1) multivitami No Notes: Bipin bernardo n -22 (Same as: l 14:26: Multi-Valeria n) Vitamin D3 No 2,000 Memori a 2000 intl - IntlUnit, l units oral 14:25: 2 tab, Vani nn tablet 00 Route: PO, Drug form: TAB, Daily, Dosing Weight 72.727, kg, Start date: 09/14/13 9:25:00, Duration: 30 day, Stop date: 05/22/14 9:00:00 Ferrlecit No Notes: Memori a 4-22 (sodium l 14:16: ferric gluconate complex (elemental iron) 62.5 mg/5 ml INJ) "Limited stability. Use immediatel y after admixture" (Same as: Ferrlecit) Vitamin B No Notes: Memori a 12 4-22 (Same As: l 14:15: Vitamin B12) Temazepam No Notes: Memori a 4-22 (Same As: l 04:37: Restoril) Dre 00 Sodium No 1,000 mL, Memori a Chloride 09-14 Rate: 30 l 0.154 00:13: ml/hr, [place] MEQ/ML 00 Infuse Injectable over: 33.3 Solution hr, Route: IV, Dosing Weight 72.727 kg, Total Volume: 1,000, Start date: 09/13/13 19:13:00, Duration: 30 day, Stop date: 10/13/13 19:12:00 Saline No Notes: Memoria Flush 0.9% 4-22 (Same as: l 00:13: BD [place] 00 Posiflush) Acetaminoph No Notes: Max Memoria en -22 acetaminop l 00:13: hen = Dre 00 4000mg/day (4 gm/day). (Same as: Tylenol) Morphine No Notes: Memoria 4-22 (Same l 00:13: as:MORPhin Dre 00 e Sulfate) Phenergan No Notes: Do Mem oria 4-22 not give l 00:13: IV push. Dre 00 (Same as: Phenergan) Protonix No Notes: For Mem oria 4-22 IV push l 00:13: reconstitu [place] 00 te with 10 ml 0.9% sodium [...] tab, PO, l Tablet 23:46: BID, as Dre [Amerge] 00 needed for headache, 0 Refill(s) [...] Memoria 4-21 Enteral l 21:54: feeds may interfere with the absorption of this medication . Shake well. Take 1 hr before or 2 hrs after antacids, dairy pdt, minerals & meals. (Same As: Carafate) Reglan No Notes: Memoria 4-21 (Same as: l 19:30: Reglan) Protonix No Notes: For Mem oria -21 IV push l 19:19: reconstitu te with 10 ml 0.9% sodium chloride and push over 2 minutes. (Same as: Protonix) normal No 1,000 mL, Memori a saline 0.9% 21 Rate: l IV 1,000 mL 19:19: 1,000 Vani nn 00 ml/hr, Infuse over: 1 hr, Route: IV, Dosing Weight 72.727 kg, Total Volume: 1,000, Start date: 09/13/13 14:19:00, Duration: 1 doses or times, Stop date: 09/13/13 15:18:00 heparin 2011- Yes Garth P 500 unit, Me moria 7-17 Nico 5 mL, l 18:16: Route: IV, [place] Drug form: SOLN, ONCE, Start date: 12/10/11 [...] 7-13 Nico tab, l 22:35: Route: PO, [place] 00 Drug form: TAB, Q4H, PRN Fever, Start date: 12/06/11 17:35:00, Duration: 30 day, Stop date: 01/05/12 17:34:00 calcium 2011- No Garth P 2,000 mg, Me moria gluconate + 7-13 Nico 20 mL, l Sodium 18:40: Route: IV, Vani nn Chloride 00 ONCE, 0.9% IV 100 Start mL date: 12/06/11 13:40:00, Stop date: 12/06/11 13:40:00 SoluCortef No Garth P 100 mg, 2 Memoria 7-13 Nico mL, Route: l 18:40: IV, Drug form: PDR/INJ, ONCE, Start date: 12/06/11 13:40:00, Stop date: 12/06/11 13:40:00 Benadryl 2011-0 No Garth P 25 mg, 0.5 Memoria 7-13 Nico mL, Route: l 18:39: IV, Drug Dre 00 form: INJ, ONCE, Start date: 12/06/11 13:39:00, Stop date: 12/06/11 13:39:00 Sodium 2011-0 No Garth P 2,000 mL, Mem oria Chloride 7-13 Nico Rate: x 1 l 0.9% IV 18:33: bolus, [place] 2,000 mL 00 Route: IV, Dosing Weight 74.545 kg, Total Volume: 2,000, Start date: 12/06/11 13:33:00, Duration: 1 doses or times, Stop date: 12/06/11 15:32:00 ketorolac 2011-0 No Garth P 30 mg, 1 M [...] Michael S 4 mg, 1 Memoria ne -12 Minkowitz mL, Route: l 21:50: IVP, Drug [place] 00 form: INJ, ONCE, PRN Nausea & Vomiting, Start date: 12/05/11 16:50:00 promethazin 2011-0 No Michael S 6.25 mg, Memoria e + Sodium 7-12 Minkowitz 0.25 mL, l Chloride 21:50: Route: [place] 0.9% IV 50 00 IVPB, mL ONCE, PRN Nausea & Vomiting, Start date: 12/05/11 16:50:00 midazolam 2011-0 No Michael S 2 mg, 2 M emoria 7-12 [place] mL, Route: l 21:50: IVP, Drug form: INJ, Q5Min, PRN Anxiety, Start date: 12/05/11 16:50:00, Duration: 2 doses or times, Stop date: Limited # of times hydromorpho No Michael S 0.5 mg, Memoria ne 7-12 [place] 0.25 mL, l 21:50: Route: IVP, Drug form: INJ, Q5Min, PRN [...] date: Limited # of times meperidine No Michael S 12.5 mg, Memoria 7-12 [place] 0.25 [...] flumazenil No [place] 0.2 mg, Memoria 7-12 Tamazight Route: l 21:50: IVP, PRN, PRN Benzodiaze pine Reversal, Initial dose, Start date: 12/05/11 16:50:00, Duration: 30 day, Stop date: 01/04/12 16:49:00 naloxone No Michael S 0.04 mg, M emoria 7-12 [place] 0.1 mL, l 21:50: Route: Dre IVP, Drug form: INJ, Q2MIN, PRN Narcotic Reversal, Start date: 12/05/11 16:50:00, Duration: 8 doses or times, Stop date: Limited # of times acetaminoph No Michael S 1,000 mg, Memoria en 10 mg/mL 7-12 [place]owitz 100 mL, l intravenous 21:50: Route: IV, [place] solution Drug form: INJ, ONCE, PRN Pain [...] day, Stop date: 01/04/12 15:03:00 Fleet Enema 2011-0 No Garth P 133 mL, Memoria - Nico Route: [place], l 14:00: Drug Form: Dre 00 TYSON, ONCE, Start date: 12/05/11 9:00:00, Stop date: 12/05/11 9:00:00 Fleet Enema 0 No Garth P 133 mL, Memoria 12-03 Nico Route: [place], l 19:00: Drug Form: Dre 00 TYSON, ONCE, Start date: 12/04/11 14:00:00, Stop date: 12/04/11 14:00:00 Citrate of No Garth P 300 mL, M srinivas Vazesia 12-03 Nico Route: PO, l 19:00: Drug Form: [place] 00 LIQ, ONCE, Start date: 12/04/11 14:00:00, Stop date: 12/04/11 14:00:00 Ambien No Garth P 10 mg, 1 Bipin bernardo -11 Nico tab, l 02:00: Route: PO, [place] 00 Drug form: TAB, Bedtime, Start date: 12/03/11 21:00:00, Duration: 30 day, Stop date: 01/01/12 21:00:00 Benadryl 0 No Garth P 25 mg, 0.5 Memoria 7-10 Nico mL, Route: l 23:37: IVP, Drug [place] 00 form: INJ, Q6H, PRN Itching, Start date: 12/03/11 18:37:00, Duration: 30 day, Stop date: 01/02/12 18:36:00 Protonix + 0 No Garth P 40 mg, Me moria Sodium 7-10 Nico Route: l Chloride 21:30: IVP, Dre 0.9% IV 10 00 Before mL Dinner, Start date: 12/03/11 16:30:00, Duration: 30 day, Stop date: 01/01/12 16:30:00 Floranex 2011-0 No Garth P 1 tab, Bipin bernardo 7-10 Nico Route: PO, l 18:00: Drug Form: [place] 00 TAB, Q8H, Start date: 12/03/11 13:00:00, Duration: 30 day, Stop date: 01/02/12 5:00:00 hyoscyamine 2011-0 Yes 0.125 mg, M emoria 0.125 mg 7-10 1 tab, PO, l oral tablet 17:53: TID, PRN, H ermann 09 40 tab, as needed for spasm, Substituti on Allowed, TAB levothyroxi 2011- Yes 150 Memori a ne 150 mcg 7-10 microgram, l (0.15 mg) 17:52: 1 tab, PO, He rmann oral tablet 41 Daily, 30 tab, Substituti on Allowed, IN AM, TABIN AM divalproex 2011-0 Yes 750 mg, Bipin bernardo sodium 7-10 PO, l 17:51: Bedtime, Dre 47 Substituti on Allowed, TAB Klonopin 1 2011- Yes 1 mg, 1 Bipin bernardo mg oral 7-10 tab, PO, l tablet 17:51: TID, Dre 38 Substituti on Allowed, TAB Ambien 10 2011-0 Yes 10 mg, 1 Bipin bernardo mg oral 7-10 tab, PO, l tablet 17:51: Bedtime, Dre 09 PRN, as needed for sleep, Substituti on Allowed, TAB Zanaflex 2011-0 Yes 8 mg, PO, Bipin bernardo 7-10 Bedtime, l 17:51: Substituti Dre 02 on Allowed, TAB Zanaflex 2 2011-0 Yes 2 mg, 1 Bipin bernardo mg oral 7-10 cap, PO, l capsule 17:50: TID, 180 Uday n 58 cap, Substituti on Allowed, CAP Phenergan 2011-0 Yes 50 mg, PO, Me moria 7-10 Q6H, l 17:50: Substituti rDe 39 on Allowed, TAB fentanyl 75 2011-0 Yes 1 patch, Me moria mcg/hr 7-10 TOP, Q72H, l transdermal 17:50: Substituti Dre film, 06 on extended Allowed, release Soft Stop, ERFILM naloxone 2011- No Garth P 0.2 mg, Mem oria 7-10 Nico 0.5 mL, l 17:49: Route: Dre IVP, Drug form: INJ, Q5Min, PRN Narcotic Reversal, Start date: 12/03/11 12:49:00, Duration: 30 day, Stop date: 01/02/12 12:48:00 M.V.I. 2011- No Garth P 102.24 Memori a Adult 10 mL 7-10 Nico ml/hr, l + folic 16:57: Route: IV, Herm hernandez acid 1 mg + 00 Drug Form: Vitamin B1 INJ, 100 mg + Daily, Sodium Start Chloride date: 0.9% IV 500 12/03/11 mL 11:57:00, Duration: 30 day, Stop date: 01/02/12 9:00:00 Vitamin D3 2011- No Garth P 5,000 Mem oria 7-10 Nico IntlUnit, l 16:55: 5 tab, [place] 00 Route: PO, Drug form: TAB, Daily, Start date: 12/03/11 11:55:00, Duration: 30 day, Stop date: 01/02/12 9:00:00 hydromorpho 2011- No Garth P 6 mg, 30 Memoria ne 6 mg 7-10 Nico mL, Route: l 16:54: IV, Drug [place] 00 Form: INJ, Start date: 12/03/11 11:54:00, Stop date: 01/02/12 11:53:00 Phenergan + 0 No Garth P 12.5 mg, Memoria Sodium 7-10 Nico 0.5 mL, l Chloride 16:53: Route: Dre 0.9% IV 50 00 IVPB, Q6H, mL PRN Nausea & Vomiting, Start date: 12/03/11 11:53:00, Duration: 30 day, Stop date: 01/02/12 11:52:00 ketorolac 2011- No Garth P 30 mg, 1 M emoria 30 mg/mL 7-10 Nico mL, Route: l injectable 16:53: IV, Drug Her wallace solution 00 form: INJ, Q6H, PRN Pain, Start date: 12/03/11 11:53:00, Duration: 4 day, Stop date: 12/07/11 11:52:00 Sodium 2011-0 No Garth P 25 mL, Memori a Chloride 7-10 Nico Route: IV, l 0.9% IV 16:52: Start [place] 00 date: 12/03/11 11:52:00, Duration: 30 day, Stop date: 01/02/12 11:51:00, PRN Line Flush BD Normal 2011- No Garth P 10 mL, Mem oria Saline 7-10 Nico Route: IV, l Flush 16:52: Drug Form: Uday n 00 INJ, PRN, PRN Line Flush, Start date: 12/03/11 11:52:00, Duration: 30 day, Stop date: 01/02/12 11:51:00 D5W 1/2NS + No Garth P 1,000 mL, Memoria KCL 20mEq/L 7-10 Nico Rate: 120 l 1000ml 16:52: ml/hr, [place] (Premix) 00 Infuse 1,000 mL over: 8.3 hr, Route: IV, Dosing Weight 74.545 kg, Total Volume: 1,000, Start date: 12/03/11 11:52:00, Duration: 30 day, Stop date: 01/02/12 11:51:00 Vital Signs Vital Name Observation Time Observation Value Comments Source Systolic blood 2020-05-02 12:49:00 126 mm[Hg] John n [employer] pressure Diastolic blood 2020-05-02 12:49:00 84 mm[Hg] Adrienne henao [employer] pressure Heart rate 2020-05-02 12:49:00 86 /min [place] [facility] Respiratory rate 2020-05-02 12:49:00 14 /min Santy coelho [employer] Temperature Oral (F) 2013-09-24 17:18:00 98.2 F [facility] Dre Heart Rate 2013-09-24 17:18:00 [facility] Dre Respitory Rate 2013-09-24 17:18:00 Memori al [place] Systolic (mm Hg) 2013-09-24 17:18:00 Bipin rial Dre Diastolic (mm Hg) 2013-09-24 17:18:00 Mem orial [place] Diastolic (mm Hg) 2013-09-24 12:20:00 Mem orial Dre Systolic (mm Hg) 2013-09-24 12:20:00 Bipin rial Dre Respitory Rate 2013-09-24 12:20:00 Memori al Dre Heart Rate 2013-09-24 12:20:00 [facility] [place] Temperature Oral (F) 2013-09-24 12:20:00 98.6 F [facility] [place] Heart Rate 2013-09-24 09:00:00 [facility] [place] Systolic (mm Hg) 2013-09-24 09:00:00 Bipin rial Dre Diastolic (mm Hg) 2013-09-24 09:00:00 Mem orial [place] Respitory Rate 2013-09-24 09:00:00 Memori al Dre Temperature Oral (F) 2013-09-24 09:00:00 98.1 F [facility] [place] Height 2013-09-13 19:05:00 175.26 cm [facility] [place] Weight 2013-09-13 19:05:00 [facility] Dre BMI Calculated 2013-09-13 19:05:00 Memori al Dre Heart Rate 2011-12-10 17:00:00 [facility] [place] Temperature Oral (F) 2011-12-10 17:00:00 98.4 F [facility] [place] Diastolic (mm Hg) 2011-12-10 17:00:00 Mem orial [place] Systolic (mm Hg) 2011-12-10 17:00:00 Bipin rial [place] Respitory Rate 2011-12-10 17:00:00 Memori al [place] Heart Rate 2011-12-10 13:00:00 [facility] [place] Temperature Oral (F) 2011-12-10 13:00:00 97.9 F [facility] [place] Systolic (mm Hg) 2011-12-10 13:00:00 Bipin rial [place] Respitory Rate 2011-12-10 13:00:00 Memori al [place] Diastolic (mm Hg) 2011-12-10 13:00:00 Mem orial Dre Systolic (mm Hg) 2011-12-10 10:10:00 [facility]in [facility] [place] Diastolic (mm Hg) 2011-12-10 10:10:00 [facility] [place] Heart Rate 2011-12-10 10:10:00 [facility] [place] Respitory Rate 2011-12-10 10:10:00 [facility] Temperature Oral (F) 2011-12-10 10:10:00 98.0 F [facility] [place] Height 2011-12-03 16:29:00 172.72 cm [facility] Weight 2011-12-03 16:29:00 [facility] Procedures Procedure Date / Time Performed Performing Clinician Sourc e Appendectomy [facility] Bariatric operative [facility] procedure<sup>1</sup> Colon [facility] operation<sup>3</sup> Partial hysterectomy [facility] Plan of Care Planned Activity Planned Date Details Comments Source Future Scheduled 2020-12-24 [place] VACCINE [place] [facility] 00:00:00 [code = INFLUENZA VACCINE] Future Scheduled 2017 BREAST CANCER [place] [facility] 00:00:00 SCREENING [code = BREAST CANCER SCREENING] Future Scheduled 2017 COLONOSCOPY [place]CRE[place] [facility] 00:00:00 [code = COLONOSCOPY SCREENING] Future Scheduled 2017 SHINGLES VACCINES [place] [facility] 00:00:00 (#1) [code = SHINGLES VACCINES (#1)] Future Scheduled 1988 Screening for [facility]ist Test 00:00:00 malignant neoplasm of cervix (procedure) [code = 385172404] Future Scheduled 1985 Hepatitis C screening [place] [facility] Test 00:00:00 (procedure) [code = 911699365] Future Scheduled 1979 COVID-19 VACCINE (1) [place] [facility] Test 00:00:00 [code = COVID-19 VACCINE (1)] Encounters Start End Encounter Admission Attending Care Care Encounter Source Date/Time Date/Time Type Type Clinicians Facility Department ID 2020-05-02 2020-05-02 Outpatient [facility] [id number] [place] 00:00:00 00:00:00 JAVAD [address] 2020-03-21 2020-03-21 Outpatient [facility] [id number] [place] 00:00:00 00:00:00 JAVAD [address] 2019-12-03 2019-12-03 Outpatient [facility] [id number] [place] 00:00:00 00:00:00 JAVAD [address] 2019-10-12 2019-10-12 Outpatient [facility] [id number] [place] 00:00:00 00:00:00 JAVAD [address] 2019-09-24 2019-09-24 Outpatient [facility] [id number] [place] 00:00:00 00:00:00 JAVAD [address] 2013-09-13 2013-09-24 Outpatient [facility] [id number] 13:43:00 14:55:00 Garth P 02 Results Test Test Test Results Result Source Description Time Comments Comments XR Chest 1 View 2019-10- Patient: IVAN MENESES Frontal 12 14:41:04 Date/Time11/05/2019 10:25 CDTReason for ExamLine placementReportLOCATION: B16CNTKR 1 VIEWINDICATION: Line placementCOMPARISON: None availableFINDINGS: Right [...] FDictated DT/TM: 11/05/2019 10:23 amSigned by: MD Valenzuela Eniola FSigned (Electronic Signature): 11/05/2019 10:29 am CHEM PANEL 2013-09-23.5 [place] [id number] [place] 09:50:00 CHEM PANEL [facility] [place] 09:50:00 CHEM PANEL 2014-05- 104 [facility] [place] 09:50:00 CHEM PANEL 2013-09-26.2 [facility] [place] 09:50:00 CHEM PANEL 7.9 [facility] 01 [place] 09:50:00 CHEM PANEL [facility] 01 [place] 09:50:00 CHEM PANEL 0.7 [facility] [place] 09:50:00 CHEM PANEL 2013-09-28 [facility] 01 [place] 09:50:00 CHEM PANEL [facility] 01 [place] 09:50:00 CHEM PANEL [facility] [place] 09:50:00 CHEM PANEL .2 [facility] [place] 09:50:00 HEMATOLOGY 60.8 [facility] 01 [place] 09:50:00 HEMATOLOGY 2013-09-24.6 [facility] 01 [place] 09:50:00 HEMATOLOGY .5 [facility] 01 [place] 09:50:00 HEMATOLOGY 2013-09-25.6 [facility] 01 [place] 09:50:00 HEMATOLOGY .4 [facility] 01 [place] 09:50:00 HEMATOLOGY .7 [facility] 01 [place] 09:50:00 HEMATOLOGY .2 [facility] 01 [place] 09:50:00 HEMATOLOGY 0.6 [facility] 01 [place] 09:50:00 HEMATOLOGY .9 [facility] 01 [place] 09:50:00 HEMATOLOGY .3 [facility] 01 [place] 09:50:00 HEMATOLOGY 2013-09-30.0 [facility] 01 [place] 09:50:00 HEMATOLOGY [facility] 01 [place] 09:50:00 HEMATOLOGY .1 [facility] 01 [place] 09:50:00 HEMATOLOGY 35.0 [facility] 01 [place] 09:50:00 HEMATOLOGY 2013-09-26.3 [facility] 01 [place] 09:50:00 HEMATOLOGY 2013-09-30.2 [facility] 01 [place] 09:50:00 HEMATOLOGY 2013-09-24.66 [facility] 01 [place] 09:50:00 HEMATOLOGY 2013-09-23 09:50:00 Test Item Value Reference Range Interpretation Comme nts MCH (test code = MCH) 30.6 pg 27.0-31.0 [facility] GtkmecbITSGQBUKCH5555-14-44 09:50:0087.5[facility]annCHEM PANEL 2013-09-22 09:30:003.1[facility] HermannCHEM ZSINO1014-38-69 09:30:001.3[facility] HermannCHEM YEAWA4261-39-07 09:30:0077[facility]annCHEM ULMKE9909-67-28 09:30:000.9[facility]annCHEM BXZHL1905-22-79 09:30:0067[facility]annCHEM XFLME2371-55-28 09:30:0011[facility]annCHEM DWOCA9637-10-26 09:30:0026 [facility]annCHEM NVPCI1197-65-35 09:30:0012.1[facility] HermannCHEM PANEL 2013-09-22 09:30:75143Fkoeixwe HermannCHEM BPJIF2520-22-47 09:30:007.8[facility]annCHEM PTHZB6246-49-03 09:30:004.1[facility]annCHEM XJQYY9182-37-71 09:30:16921Gyfjfpqc OstpjxxOXRCVNTXGS9850-12-90 09:30:0034.3[facility] RPFFKRDTQF1529-58-21 09:30:0016.8[facility] AzgsywyUDXPZJIOED2771-46-18 09:30:00 88.6[facility] KqccvtxMODXTIHTYV3945-08-87 09:30:002.80[facility] HermannHEMATOLOGY 2013-09-22 09:30:005.1[facility] CavtripFPLTIOYDBH4207-69-76 09:30:17729Dccqqkxk JgfgtgsSFZPVJMVOT6752-36-96 09:30:00 Test Item Value Reference Range Interpretation Comments MCH (test code = MCH) 30.4 pg 27.0-31.0 [facility] GjdrpjiARXQFVMFNU0258-65-18 09:30:008.5[facility] HermannHEMATOLOGY 2013-09-22 09:30:0024.8[facility] OhiznejDVAADMTSJL6370-92-95 09:30:008.1[facility] SfaosjxLWYSFAXLFZ4159-95-17 09:30:000.0[facility] QuabmtgKEOEGOSBWV3940-97-89 09:30:000.1[facility] IicvymnXOIDXKWQKS2004-99-69 09:30:000.6[facility] [place] UQZQZZFUQR9635-91-73 09:30:001.4[facility] BwwndvaMJTKGHFECC2817-42-88 09:30:001.0 [facility] KnbvmjwWFNAOUINST8502-25-06 09:30:003.3[facility] HermannHEMATOLOGY 2013-09-22 09:30:0065.3[facility] AvawoncOVCVKUFHDI1775-19-28 09:30:0020.6[facility] QwpgyfcPCQEHQLDSA3802-32-43 09:30:00Normal (09/22/13 4:30 AM)[facility] AHSEBXDHRI4518-15-37 09:30:000.3[facility] HlnlhuuZYRASYADXQ1358-37-78 09:30:00 Normal (09/22/13 4:30 AM)[facility] ZehudcqLAYAQQXVKL4865-63-89 09:30:0012.4 [facility] HermannCHEM UJUTL4895-18-38 10:00:01152Abbylpdk HermannCHEM PANEL 2013-09-21 10:00:000.7[facility] HermannCHEM SJHOE7956-72-25 10:00:33096Fnatceeg HermannCHEM QABCB2134-15-10 10:00:009[facility]annCHEM TYYEM7162-12-88 10:00:004.5[facility]annCHEM SASBN7258-93-76 10:00:06397Vzffatri HermannCHEM LXIZX0037-06-29 10:00:008.2[facility] HermannCHEM UXTRJ0011-19-14 10:00:0025 [facility]annCHEM TPFGV5572-08-49 10:00:0088[facility] HermannCHEM PANEL 2013-09-21 10:00:0014.5[facility] NwggxxkBAJBMKDWBZ4935-71-72 10:00:00Slight (09/21/13 5:00 AM)[facility] HyqzhmvVKOECFVTKM7045-08-25 10:00:000.1[facility] KkhbuinTJZZILMXWX1165-05-26 10:00:006.1[facility] TjhvwcrAHEWEOFUAG7828-37-06 10:00:000.0[facility] SmcqcnpCNIHPBOGTA5784-76-23 10:00:000.0[facility] [place] XLYWXSIGME4435-47-24 10:00:000.0[facility] PlqqwofMHPHDOCEJL7886-21-44 10:00:00 Slight (09/21/13 5:00 AM)[facility] FdkstjcVUMTAVAHSE6743-30-75 10:00:000.7[facility] ZxylwtcUYJMHOEVUG0118-57-86 10:00:000.6[facility] OnqfmbbYPKZTYGBOF6569-71-15 10:00:009.3[facility] SbxbwvxGWMNYJLHFO1337-14-66 10:00:008.4[facility] MHQEVUFHIG2816-23-86 10:00:00Normal (09/21/13 5:00 AM)[facility] HermannHEMATOLOGY 2013-09-21 10:00:0082.2[facility] YpsafvkWMFEHQVZBX0930-27-52 10:00:003.01[facility] GhxyfmjNIGHOYCIGY6381-08-51 10:00:007.4[facility] FljeemoOVCFVFWOJJ5511-09-36 10:00:00 Test Item Value Reference Range Interpretation Comments MCH (test code = MCH) 29.5 pg 27.0-31.0 [facility] YdnzxhjDZFDTXQVXW1820-19-81 10:00:008.9[facility] HermannHEMATOLOGY 2013-09-21 10:00:0088.1[facility] JharfupVYPCVLYEDH7449-90-34 10:00:0026.5[facility] ZprlxhcAKTOONXFZT2921-77-41 10:00:0033.5[facility] PnualiqAYLHOPCHVA4420-83-54 10:00:74786Tbddnryh TdguoyfPCZFGQJNWW6710-81-06 10:00:0016.6[facility] OYTCGVPNLZ4753-19-73 10:00:008.4[facility] HermannBLOOD BANK SQRLUUV1423-05-69 19:10:00Negative (09/20/13 2:10 PM)[facility]annCHEM UQXEY1236-16-24 10:10:009 [facility]annCHEM UAUBE8418-85-98 10:10:002.7[facility] HermannCHEM PANEL 2013-09-19 10:10:005.1[facility] HermannCHEM KVPUZ2013-85-72 10:10:0063[facility] HermannCHEM HILJB0694-35-46 10:10:0011[facility] HermannCHEM EMJBT2359-24-25 10:10:000.7[facility] HermannCHEM WPDHW4162-15-40 10:10:009[facility]annCHEM OJEZN7987-47-65 10:10:002.4[facility]annCHEM HHLTR8545-72-95 10:10:001.1 [facility] UjgnqvbEUTPJBEWAG9270-35-65 10:10:000.0[facility] HermannCHEM PANEL 2013-09-15 10:00:0010[facility] HermannCHEM QKGCW6428-50-21 10:00:0010[facility]annCHEM NHLZT1648-73-86 10:00:002.6[facility]annCHEM ARYHQ8429-56-73 10:00:0058[facility]annCHEM CIMKH6438-06-83 10:00:000.5[facility]annCHEM PYRJU0663-04-74 10:00:004.8[facility]annCHEM TZEGO1067-25-81 10:00:001.2 [facility]annCHEM BLDRS1248-58-80 10:00:002.2[facility] HermannCHEM PANEL 2013-09-15 10:00:007[facility] HermannCHEM KQQJI8443-31-75 10:00:003.8[facility] HermannCHEM QJNTK9307-69-86 10:00:001.5[facility] IsfzblzLGGXWPIDPK9796-35-91 09:30:00Slight *ABN*(09/14/13 4:30 AM)[facility] IcqcktsPNEWIIALOY9804-27-18 09:30:00Slight (09/14/13 4:30 AM)[facility] IhzuvteRLAYUVDHNI2937-86-46 09:30:00 Normal (09/14/13 4:30 AM)[facility]BL[facility]OD B[facility] BWZVLBP6788-66-57 00:30:00 Negative (09/13/13 7:30 PM)[facility]annUR[facility] AND QCSED6358-35-08 20:40:407 [facility]annUR[facility] AND MDTJW8699-44-16 20:40:408[facility]UR[facility] AND TFFYX8979-02-60 20:40:40Negative *NA*(09/13/13 3:40 PM)[facility] PKYGU6769-05-60 20:40:406.0[facility] AND ZNDLR1340-36-10 20:40:40 Small *ABN*(09/13/13 3:40 PM)[facility] JUQBD7630-71-81 20:40:40 Negative (09/13/13 3:40 PM)[facility] UGULQ5668-89-91 20:40:40 Negative (09/13/13 3:40 PM)[facility] FQONZ0446-13-74 20:40:40 Yellow *NA*(09/13/13 3:40 PM)[facility] XZJBA7804-16-59 20:40:40 1.019[facility]ann[facility] AND BRXPU5728-94-32 20:40:40Slight *ABN*(09/13/13 3:40 PM)[facility] QqzcxirCTKLXHRCIU2319-35-21 20:40:18Negative (09/13/13 3:40 PM) [facility]annCHEM PLDII6953-72-49 20:40:70033Yfjogfoo HermannCHEM PANEL 2013-09-13 20:40:001.2[facility] HermannCHEM NUZBH9629-02-97 20:40:002.5[facility] HermannCHEM YSIKR5553-29-76 20:40:009[facility] HermannCHEM RJNHQ3788-02-79 20:40:0010[facility]annCHEM SBPYJ0279-91-92 20:40:005.6[facility] HermannCHEM ZEBNU5822-86-26 20:40:0010[facility] HermannCHEM QVOSQ0652-04-07 20:40:003.1 [facility]annCHEM KVEPM9314-02-34 20:40:0066[facility] HermannCHEM PANEL 2013-09-13 20:40:000.4[facility] BjbpczsZMDSLPRAJD1035-67-67 20:40:00 Test Item Value Reference Range Interpretation Comments PTT (test code = PTT) 34.7 s 22.9-35.8 [facility] YvlfqezLJRCWRJSSK3984-26-59 20:40:00 Test Item Value Reference Range Interpretation Comments PT (test code = PT) 12.8 s 12.0-14.7 [facility] DslxxefAHUBJFVPJE7251-50-00 20:40:000.97[facility]annURINE AND STOOL 2013-09-13 19:20:00Negative (09/13/13 2:20 PM)[facility]annHEMATOLOGY 2011-12-09 09:50:000.1[facility] LdpluxxKQWSFNPNGL1549-36-62 09:50:003.8[facility] SwrucccTKQZLTTBCX6258-58-22 09:50:001.3[facility] MuegbjhXHRSKOBDTA2476-67-33 09:50:000.5[facility] ZqfjcucKKVABNGQFK4508-95-86 09:50:0066.3[facility] QACWRFVQMG5770-69-78 09:50:009.5[facility] MrzimzeGFQGHAGTLD3972-23-15 09:50:00 22.1[facility] NtwjgwgHJEGRIOBRO7116-41-56 09:50:000.2[facility] HermannHEMATOLOGY 2011-12-09 09:50:001.9[facility] ScutlakXABWQGKFSL5139-01-68 09:50:0088.9[facility] EsrulfdAWRTEHAYPR7968-53-79 09:50:0015.3[facility] BujoosgQULQZMBABY9758-04-92 09:50:0034.1[facility] MsehrrsAZXSWNVBFG5862-89-57 09:50:08519Soeqmfav Dre IAGSFDCRMN7711-75-69 09:50:007.9[facility] LhllqvkMNLOAGDMJN9598-47-29 09:50:00 Test Item Value Reference Range Interpretation Comments MCH (test code = MCH) 30.3 pg 27.0-31.0 N [facility] WgvxxfgCHVAFQUPOW8675-68-43 09:50:0030.0[facility] HermannHEMATOLOGY 2011-12-09 09:50:005.8[facility] WeydjybCXQJWINCKN8039-46-97 09:50:0010.2[facility] YgrkfdcMYVOXRXHYW2375-03-01 09:50:003.38[facility] HermannBLOOD BANK RESULTS 2011-12-08 17:54:00Product available (12/08/2011 12:54:00)[facility] VNWZEFJ0735-99-13 15:10:00Negative (12/08/2011 10:10:00)[facility] YNPJSYUQPX0749-32-05 10:00:008.0[facility] VhabuipWSDYXBNGTH6588-16-50 10:00:00 12.0[facility] HagmxrgKVRXLOTPNZ0830-02-75 10:00:00Normal (12/08/2011 05:00:00) [facility] UllxnonHKPUDTJBBU0706-54-06 10:00:000.0[facility] HermannHEMATOLOGY 2011-12-08 10:00:004.0[facility] IpllkuzCDHHJYSXFT4749-13-41 10:00:00Slight *ABN*(12/08/2011 05:00:00)[facility] BvdldmgNHMFEQULMT4429-72-02 10:00:00Slight *ABN*(12/08/2011 05:00:00)[facility] WkarqfuGRKBXPFVAE9130-89-30 10:00:00Slight (12/08/2011 05:00:00)[facility] FzezraxBUKTKLMIUI6058-52-25 10:00:0076.0[facility] QavciqyVTRFAPALNK2095-36-93 10:00:007.3[facility] YaelsscPZWKPDDAZA2130-43-80 10:00:000.3[facility] FhwtpysUGAIVVUUYP1570-95-23 10:00:000.7[facility] [place] NEZMOZVSAN7944-27-24 10:00:002.91[facility] JnbtrzhKTLSVEXZGU4430-91-90 10:00:00 8.3[facility] GfjeomvOCABWLNPNO4346-72-74 10:00:00 Test Item Value Reference Range Interpretation Comments MCH (test code = MCH) 30.3 pg 27.0-31.0 N [facility] CykcwcgTAQVQIQPVR8363-05-31 10:00:0089.3[facility] HermannHEMATOLOGY 2011-12-08 10:00:0033.9[facility] JqmsqmxSMRYKCRDEY1438-61-91 10:00:0026.0[facility] MdxpizgLYJOEXWIHD5644-98-71 10:00:008.8[facility] VxcfzxxRULTTQGYGC8464-69-40 10:00:44504Emtlhszj IhxtfthSAHQEFOMQU7470-43-27 10:00:007.7[facility] [place] GOITMPLKSJ7962-80-23 10:00:0015.8[facility] ErmmyniJHDJQTZWK7033-81-84 14:33:002.2 [facility] WmteovrQHNNYJVMG1056-45-23 14:33:004.0[facility] HermannCHEMISTRY 2011-12-07 14:33:13526Ukknkyil ZvwnxjvRUSZZHKZQ4148-80-68 14:33:63315Ombywqeu KosqebaKYJCKHWDW3562-77-40 14:33:0022[facility] QlnrnwlVBSNKWXUC5563-35-36 14:33:007.6[facility] ZixlgzoZYOMNGRYU2204-07-55 14:33:001.0[facility] YAILCMMLP1504-10-28 14:33:0016[facility] HlgqtbmXRAWOHYMF1526-07-68 14:33:52099 [facility] ErklefpWVVLWOMET6439-20-87 14:33:0015.0[facility] HermannCHEMISTRY 2011-12-07 14:33:001.3[facility] CztszalJDYDTBWWUQ1326-55-87 14:33:00 Test Item Value Reference Range Interpretation Comments Tot Cell Ct (test code = Tot Cell Ct) 100 1 [facility] AiwvshzEEARQZCOUE2352-51-98 14:33:00Normal (12/07/2011 09:33:00) [facility] RtpwdxjLBTIZOUPUC8818-29-35 14:33:000.0[facility] HermannHEMATOLOGY 2011-12-07 14:33:001.0[facility] CtirojaKXMTMQMVMS5585-07-69 14:33:008.0[facility] RsstvkuMZFGVEOYPW5821-58-24 14:33:0017.0[facility] BrwajauYMMGCYYXLO9240-92-52 14:33:0034.0[facility] NsfdzofZSESZLAGID1830-74-83 14:33:0040.0[facility] YHISUIROSY8066-55-59 14:33:00Normal (12/07/2011 09:33:00)[facility] JKTBKKDKHP8009-60-97 14:33:000.8[facility] LrolfofSNIWRXCHCT9072-10-38 14:33:007.2 [facility] FoojnvfLRJRUINNZF8015-70-07 14:33:001.6[facility] HermannHEMATOLOGY 2011-12-07 14:33:0015.8[facility] FypyuyeYGCYSIYZSK5920-88-30 14:33:0025.2[facility] BnefcybFKPVCOTVZS0828-79-45 14:33:008.3[facility] LktqsihLRMJVPQQPS2750-43-12 14:33:0088.5[facility] DgoxrrkALXLGJSKQO8470-27-24 14:33:0032.8[facility] [place] NKAGYVVQCR5086-71-08 14:33:00 Test Item Value Reference Range Interpretation Comments MCH (test code = MCH) 29.0 pg 27.0-31.0 N [facility] UeskndfZRLKVCMESI5891-75-09 14:33:99320Feqhmszi HermannHEMATOLOGY 2011-12-07 14:33:007.6[facility] TittccjRXFNQOHEPB3160-65-38 14:33:002.85[facility] UszhgwnOOIVAVTABM1718-21-66 14:33:009.7[facility] AfdjchbQHVAGPLMQZ7741-22-27 22:15:00Negative *NA*(12/06/2011 17:15:00)[facility] RvqfwvbJOURLUVFKA0330-17-82 22:15:00Negative (12/06/2011 17:15:00)[facility] NxloljeADCYINFTXZ7441-03-10 22:15:003[facility] VmoytcrJBBKLZTWAI5737-00-55 22:15:00Many /LPF *ABN*(12/06/2011 17:15:00)[facility] VwqbormBNIFYCAQQW5231-22-13 22:15:00Negative (12/06/2011 17:15:00)[facility] DxihxhcUNDRAHOOYM6971-62-96 22:15:00Occasional /LPF *NA*(12/06/2011 17:15:00)[facility] LhvfhfwNOOWWETESQ4843-54-16 22:15:00Negative (12/06/2011 17:15:00)[facility] QpslnabVXGOHJAMGD6858-40-35 22:15:0020 mg/dL *ABN*(12/06/2011 17:15:00)[facility] LdqolukXHRXRRYZWH5449-31-42 22:15:00Negative mg/dL *NA*(12/06/2011 17:15:00)[facility] SqnxqpsGGUZUUOIAN6898-10-18 22:15:00 Negative mg/dL *NA*(12/06/2011 17:15:00)[facility] SvlrgwbKXIKPGNCIG0415-26-57 22:15:00Clear (12/06/2011 17:15:00)[facility] YhgfxmaONJOJLNHZM1044-34-72 22:15:00 Yellow *NA*(12/06/2011 17:15:00)[facility] AlpnxugKLGAJFHMVF5407-15-37 22:15:005.5 [facility] HqdptkbJHHTKTOEZQ0519-00-86 22:15:001.016[facility]annCHEMISTRY 2011-12-06 09:20:005[facility] QgkrzbwCFQEFZQAD6649-71-91 09:20:000.8[facility] KrbncltYGUAMUHHL8256-91-00 09:20:90870Rxntrmjd QozmaneMSWNNBLGE6871-09-93 09:20:008.0[facility] FzelvdaPAPTIMZWN2715-47-51 09:20:22640Qxosrrph Dre UVCMEARBC4920-73-23 09:20:0025[facility] XkzepjoKAGLPPZEY4047-76-91 09:20:51167 [facility] FusiuzxIIGGEDPEI1057-30-75 09:20:004.0[facility] HermannCHEMISTRY 2011-12-06 09:20:0014.0[facility] AtiytocEEAFXQXGBX3815-39-24 09:20:000.1[facility] ItaynwsWKVSAXXPEL9985-05-03 09:20:000.0[facility] CzctsglRJJQUYDFKO7973-06-44 09:20:000.1[facility] RzvylrbUECAASFGKU4448-31-32 09:20:001.0[facility] [place] MAMXVGQYL3539-66-14 18:20:005.8[facility] YoavqeoQBAZNAKEE6804-36-77 18:20:01274 [facility] SpijfwnYZZDYYFHD2714-32-29 18:20:77607.6[facility] HermannCHEMISTRY 2011-12-03 18:20:003.27[facility] BsphdruKYYIEEPFV8753-80-17 18:20:60718Rdoyrmle AzuuhjySNRKHVNAZ5461-92-84 18:20:15347Iwxascuw JkflzffVYXHCKPXZ8224-40-84 18:20:0062[facility] IjeuvfnBNPYWVMED2087-39-11 18:20:0064[facility] ZCVTAGSWJ5774-03-34 18:20:33223Nsfzremg TbpsauwCUAAHNXVF4878-56-52 18:20:93263 [facility] NcfuvesNOEWQEILY5074-79-74 18:20:0033[facility] HermannCHEMISTRY 2011-12-03 18:20:88253Eezipuqv KyegdbsAJZWLQLVJ5669-38-51 18:20:006.3[facility] QnklubsRMRDFQUYR5650-46-80 18:20:001.600[facility] DujwytjFCLUNHWOD7262-55-53 18:20:00<4[facility] OaolkknEFZSKMJZS4505-93-93 18:20:0013[facility] [place] EQMMXYLMI7488-11-80 18:20:0013[facility] LilyggaTXPEAQAZL7570-35-50 18:20:0041 [facility] EtgzziiLQPJXYFKM5220-84-15 18:20:0019.3[facility] HermannCHEMISTRY 2011-12-03 18:20:11244Lmcjkvsb HufjgtgDWZZZYBDJ7916-62-63 18:20:94248Xdqzdudf CwrazlxSYPHDYUJE8041-70-04 18:20:67983Dxqvztei ZatxeqtFNVCDOGMM8398-28-00 18:20:003.6[facility] SwtuczxIYDKGYAKO2921-91-16 18:20:001.9[facility] DENWIGXZR1808-13-02 18:20:002.8[facility] YrwzgbiGFWVTRZFT2932-75-39 18:20:001.2 [facility] XafbatgRJJOIUVEO7174-52-74 18:20:0012.2[facility] HermannCHEMISTRY 2011-12-03 18:20:0014[facility] AyosdaqBLRXCBOKK1511-92-37 18:20:000.3[facility] LjycxyeJYJIEHLDK0243-21-75 18:20:007[facility] YijsmrmUJUYJPHRB8173-38-74 18:20:00 3.5[facility] VltuibrESOSMNTSW9877-08-71 18:20:007[facility] HermannCHEMISTRY 2011-12-03 18:20:0054[facility] GqvduofXPEOKZRXD6199-28-95 18:20:006.3[facility] JelvqajCLZWHOXLY7523-90-55 18:20:0026[facility] QqtndsdECEADYZWE7554-41-29 18:20:008.7[facility] AekvaulHGYXIFPTA4874-45-72 18:20:31643Xhvnaksq Dre HALHQRKHB4882-85-02 18:20:004.2[facility] OkpzstoFERURXYRO4523-40-04 18:20:67124 [facility] VeutwvmTTSDEOIBO5833-08-70 18:20:15329Bhcdkegx HermannCHEMISTRY 2011-12-03 18:20:0011[facility] RchlwpiVGVWJSESN4571-02-59 18:20:000.8[facility] EzmuovuXKDNCOCLRE1173-29-16 18:20:000.7[facility] IblehfuPCRTNSERTP7186-08-27 18:20:000.1[facility] GsiprqdYBYUHGTAXK9472-48-10 18:20:000.0[facility] ILOIQLWBHD9558-78-41 18:20:000.0[facility] LxgldgrXSSLNWJFUU9839-94-55 18:20:00 0.92[facility] SevfdpvZZBYBIBHQS5439-62-48 18:20:00 Test Item Value Reference Range Interpretation Comments PT (test code = PT) 12.4 s 12.0-14.7 N [facility] GmrffmmVVUQDQICUZ3186-92-85 18:20:0019.9[facility]
--- NOTE | 2020-10-30 20:17 | RAD REPORT ---
EXAM DESCRIPTION: CT - Ct Stroke Brain Wo Cont - 10/30/2020 8:04 pm CLINICAL HISTORY: ams Headache, drowsiness, CVA symptomology COMPARISON: Ct Stroke Brain Wo Cont dated 09/17/2020; Head Brain Wo Cont dated 01/16/2016 TECHNIQUE: All CT scans are performed using dose optimization technique as appropriate and may inclu de automated exposure control or mA/KV adjustment according to patient size. FINDINGS: No intracranial hemorrhage, hydrocephalus or extra-axial fluid collection.No areas of brai n edema or evidence of midline shift. The paranasal sinuses and mastoids are clear. The calvarium is intact. IMPRESSION: No acute intracranial abnormality. The findings were discussed with Dr. Camacho in the ER On 10/30/2020 at 8 p.m. by telephone.
[2020-10-30 20:35] LABS: Potassium 4.1 mmol/L (3.5-5.1)
[2020-10-30 21:08] LABS: ALT/SGPT 16 U/L (12-78); AST/SGOT 20 U/L (15-37); Albumin 4.1 g/dL (3.4-5.0); Alkaline Phosphatase 126 U/L (45-117); Bilirubin Direct 0.1 mg/dL (0-0.2); Bilirubin Total 0.3 mg/dL (0.2-1.0); Protein, Total 7.4 g/dL (6.4-8.2)
[2020-10-30] MEDS ORDERED: ASPIRIN 81 MG CHEWABLE TABLET ONE (21:13)
[2020-10-30] MEDS ORDERED: FOLIC ACID 5 MG/ML VIAL ONE (21:13)
[2020-10-30] MEDS ORDERED: NA CHLORIDE 0.9% 1,000 ML ONE (21:14)
--- NOTE | 2020-10-30 21:20 | RAD REPORT ---
EXAM DESCRIPTION: RAD - Chest Single View - 10/30/2020 9:12 pm CLINICAL HISTORY: stroke protocol Chest pain. COMPARISON: Chest Single View dated 09/17/2020; Chest Single View dated 11/07/2019; Chest Pa And Lat ( 2 Views) dated 04/16/2019; Abdomen 1 View (KUB) dated 03/25/2019 FINDINGS: Portable technique limits examination quality. The lungs are grossly clear. The heart is normal in size. No displaced fractures.Right-sided venous c atheter has tip in the SVC. IMPRESSION: No acute intrathoracic process suspected.
--- NOTE | 2020-10-30 21:21 | RAD REPORT ---
EXAM DESCRIPTION: RAD - Hip Left 2 View - 10/30/2020 9:13 pm CLINICAL HISTORY: PAIN COMPARISON: No comparisons FINDINGS: No fracture or dislocation seen. No evidence of AVN.
--- NOTE | 2020-10-30 21:23 | RAD REPORT ---
EXAM DESCRIPTION: RAD - Pelvis - 10/30/2020 9:13 pm CLINICAL HISTORY: PAIN COMPARISON: No comparisons FINDINGS: Moderate stool is present in the rectum. No acute fracture, dislocation or AVN.
[2020-10-30 21:37] LABS: Absolute Lymphocytes (CBC) 0.8 K/uL (0.7-4.9); Basophils % 0.3 % (0-1.3); Lymphocytes % 8.6 % (15.3-44.8); MPV 7.6 fL (7.6-11.3); RBC Red Blood Cell Count 4.57 M/uL (3.86-4.86)
[2020-10-30 21:45] LABS: Protime INR 0.96
[2020-10-30 22:22] LABS: Blood Morphology Comment NOT SEEN (NOT SEEN); Platelet Estimate ADEQ
--- NOTE | 2020-10-30 22:53 | ER ---
Nurse's Notes [facility] Name: Maribel Soto Age: 55 yrs Sex: Female : 1965 Arrival Date: 10/30/2020 Time: 19:55 Bed 5 Private MD: Diagnosis: Anxiety disorder, unspecified;Altered mental status, unspecified-resolved;Pain in left hip Presentation: 10/30 19:55 Chief complaint: EMS states: she was found on floor between table and cabinet rr5 unresponsive confused, not oriented to event or time. last seen normal an hour ago. Coronavirus screen: unable to obatin. Ebola Screen: Unable to complete the Ebola screening because:. 19:55 Method Of Arrival: EMS: [facility] rr5 19:55 Initial Sepsis Screen: Does the patient meet any 2 criteria? No. Patient's initial ss sepsis screen is negative. Does the patient have a suspected source of infection? No. Patient's initial sepsis screen is negative. Risk Assessment: Do you want to hurt yourself or someone else? Patient reports no desire to harm self or others. 19:55 Acuity: LILIAN 3 ss 19:55 Onset of symptoms was October 30, 2020 at 18:55. 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 CLERK: 21:00 unrecalled rr5 Historical: - Allergies: 20:00 BACLOFEN; rr5 20:00 Bactrim; rr5 20:00 Opana; rr5 20:00 PENICILLINS; rr5 20:00 Zofran; rr5 - Home Meds: 21:31 dicyclomine 20 mg Oral tab 1 tab 3 times per day [Active]; Flovent Inhl twice a day rr5 [Active]; furosemide 20 mg Oral tab 1 tab once daily [Active]; gabapentin Oral 3 times per day [Active]; hydromorphone 4 mg Oral tab 1 tab every 4 hours [Active]; hyoscyamine sulfate 0.125 mg/mL Oral drop 1 mL 4 times per day [Active]; naratriptan Oral daily [Active]; naratriptan 2.5 mg Oral tab 1 tab [Active]; morphine 10 mg Oral CERP 1 cap every 12 hours [Active]; oxymorphone Oral [Active]; Plaquenil 200 mg Oral tab 2 times per day [Active]; Lunesta 2 mg Oral tab 1 tab once daily [Active]; zonisamide 100 mg Oral cap 1 cap once daily [Active]; Synthroid 200 mcg Oral tab once daily [Active]; sumatriptan succinate 6 mg/0.5 mL Sub-Q pnij [Active]; tizanidine 4 mg Oral tab 1 tab every 8 hours [Active]; sumatriptan succinate 6 mg/0.5 mL Sub-Q syrg as needed [Active]; promethazine 50 mg Oral tab 1 tab every 6 hours [Active]; Phenergan Oral 50 mg every 6 hours [Active]; "Inhaler" [Active]; - PMHx: 20:00 Anxiety; Asthma; Chronic pain; Diverticulitis; Fibromyalgia; Bryce; Lupus; rr5 Migraines; Seizures; Ulcers; - Immunization history:: Adult Immunizations up to date. - Social history:: Smoking status: unknown. - Family history:: not pertinent. Screenin:00 Fall Risk Secondary diagnosis (15 points) seizures, IV access (20 points). Gait- rr5 Impaired (20 pts.). Mental Status- Overestimates/Forgets Limitations (15 pts.). Total Wooten Fall Scale indicates No Risk (0-24 pts). 20:35 VAN Screening: Arm Drift: Patient shows no arm weakness. Patient is VAN negative. rr5 21:20 Patient has been NPO before screening. The patient is alert, able to follow commands. rr5 The patient does not exhibit slurred or garbled speech The patient is not exhibiting difficulty speaking. The patient does not exhibit difficulty understanding words. The patient is able to swallow own secretions with no drooling or need for suction. Patient tolerated one teaspoon of water. No drooling, immediate coughing, gurgling, or clearing of the throat was noted. The patient tolerated 90mL of water. No drooling, immediate coughing, gurgling, or clearing of the throat was noted. The patient passed the bedside swallow screening. Oral medications may be given as ordered. Contact Physician for further diet orders. 22:10 Abuse screen: Denies threats or abuse. Denies injuries from another. Nutritional rr5 screening: No deficits noted. Tuberculosis screening: No symptoms or risk factors identified. Assessment: 19:51 Reassessment: Code stroke called at 1950. 19:53 Reassessment: Pt to CT VIA stretcher accompanied by JAYDEN Hernandez. ss 20:00 General: Appears in no apparent distress. Behavior is drowsy. Pain: Unable to use pain rr5 scale. Patient appears confused. Neuro: Level of Consciousness is awake, confused, Oriented to person, Facial symmetry appears normal. Cardiovascular: Capillary refill < 3 seconds Patient's skin is warm and dry. Respiratory: Airway is patent Respiratory effort is even, unlabored, Respiratory pattern is regular, symmetrical. GI: No signs and/or symptoms were reported involving the gastrointestinal system. : No signs and/or symptoms were reported regarding the genitourinary system. EENT: No signs and/or symptoms were reported regarding the EENT system. Derm: No signs and/or symptoms reported regarding the dermatologic system. Musculoskeletal: Capillary refill < 3 seconds, Reports pain in left hip. 20:38 Reassessment: Mother: Kalyani Marquis [phone]. ss 21:00 Reassessment: Patient appears in no apparent distress at this time. Patient states rr5 feeling better. 21:48 Reassessment: Patient appears in no apparent distress at this time. drowsy, able to rr5 answer questions x3. 23:05 Reassessment: Ride called for patient at this time. [email or web address] 23:29 Reassessment: Patient appears in no apparent distress at this time. Patient is alert, rr5 oriented x 3, equal unlabored respirations, skin warm/dry/pink. discharge instruction given and explained without complaints made Patient states feeling better. Patient states symptoms have improved. Vital Signs: 19:55 BP 132 / 82; Pulse 84; Resp 16; Temp 98; Pulse Ox 98% ; rr5 21:00 BP 121 / 74; Pulse 79; Resp 17; Pulse Ox 99% ; rr5 21:39 BP 125 / 70; Pulse 80; Resp 19; Pulse Ox 98% ; rr5 22:30 BP 112 / 69; Pulse 89; Resp 17; Temp 98; Pulse Ox 99% ; rr5 23:30 BP 110 / 70; Pulse 85; Resp 16; Pulse Ox 99% ; rr5 Mac Coma Score: 21:00 Eye Response: spontaneous(4). Verbal Response: confused(4). Motor Response: obeys rr5 commands(6). Total: 14. 22:00 Eye Response: spontaneous(4). Verbal Response: oriented(5). Motor Response: obeys rr5 commands(6). Total: 15. 23:30 Eye Response: spontaneous(4). Verbal Response: oriented(5). Motor Response: obeys rr5 commands(6). Total: 15. NIH Stroke Scale Scores: 21:15 NIHSS Score: 0 rr5 ED Course: 19:55 Patient arrived in ED. ss 20:00 Patient has correct armband on for positive identification. Placed in gown. Bed in low rr5 position. Call light in reach. Side rails up X2. Seizure precautions initiated. application design engineer on. Pulse ox on. NIBP on. 20:00 Arm band placed on right wrist. rr5 20:03 CT Stroke Brain w/o Contrast In Process Unspecified. EDMS 20:07 Mj Camacho MD is Attending Physician. evelia 20:29 David Gomez RN is Primary Nurse. rr5 20:30 Accessed Port-a-Cath. using accessed w/ # 20 [place] needle, ,sterile technique, per 5 hospital protocol. Clean \\T\\ dry. Dressing intact. Good blood return. Flushes easily. 20:40 Inserted saline lock: 22 gauge in right hand, using aseptic technique. Blood collected. rr5 21:00 EKG done, by ED staff, reviewed by Mj Camacho MD. rr5 21:12 Stroke CXR 1 View In Process Unspecified. EDMS 21:12 Pelvis XRAY In Process Unspecified. EDMS 21:12 Hip Left 2 View XRAY In Process Unspecified. EDMS 22:52 Ernesto Laboy MD is Referral Physician. evelia 23:12 Triage completed. ss 23:31 No provider procedures requiring assistance completed. IV discontinued, intact, rr5 bleeding controlled, No redness/swelling at site. Pressure dressing applied. Administered Medications: 21:00 Drug: NS 0.9% 1000 ml Route: IV; Rate: 1 bolus; Site: Port-a-cath; rr5 22:00 Follow up: Response: No adverse reaction; IV Status: Completed infusion; IV Intake: rr5 1000ml 21:00 Drug: foLIC Acid 1 mg Route: IVPB; Site: Port-a-cath; rr5 22:00 Follow up: Response: No adverse reaction; IV Status: Completed infusion; IV Intake: rr5 1000ml 21:20 Drug: Aspirin Chewable Tablet 324 mg Route: PO; rr5 22:20 Follow up: Response: No adverse reaction rr5 23:20 Drug: HEParin Flush (100 units/mL) 500 units Route: IVP; Site: Port-a-cath; rr5 23:29 Follow up: Response: Medication administered at discharge. rr5 Intake: 22:00 IV: 1000ml; Total: 1000ml. rr5 22:00 IV: 1000ml; Total: 2000ml. rr5 Outcome: 22:52 Discharge ordered by . evelia 23:32 Discharged to home via wheelchair, with family. rr5 23:32 Condition: stable 23:32 Discharge instructions given to patient, family, Instructed on discharge instructions, follow up and referral plans. Demonstrated understanding of instructions, follow-up care. 23:34 Patient left the ED. rr5 NIH Stroke Scale - NIH Stroke Score Date: 10/30/2020 Time: 21:15 Total Score = 0 1a. Level of Consciousness (LOC) - 0(Alert) 1b. Level of Consciousness (LOC) (Year \\T\\ Age) - 0(Both) 1c. LOC Commands (Open \\T\\ Closes Eyes/Cement Fittings Maker) - 0(Both) 2. Best Gaze (Lateral Gaze Paresis) - 0(Normal) 3. Visual Field Loss - 0(No visual loss) 4. Facial Palsy - 0(Normal) 5a. Left Arm: Motor (10-second hold) - 0(No drift) 5b. Right Arm: Motor (10-second hold) - 0(No drift) 6a. Left Leg: Motor (5-second hold - always test supine) - 0(No drift) 6b. Right Leg: Motor (5-second hold - always test supine) - 0(No drift) 7. Limb Ataxia (finger/nose \\T\\ heel/nixon - test with eyes open) - 0(Absent) 8. Sensory Loss (pinprick arms/legs/face) - 0(Normal) 9. Best Language: Aphasia (description/naming/reading) - 0(No aphasia) 10. Dysarthria (speech clarity - read or repeat words) - 0(Normal) 11. Extinction and Inattention (visual/tactile/auditory/spatial/personal) - 0(No abnormality) Initials: rr5 Signatures: Dispatcher [employer] Mj Montague MD MD cha Smirch, Shelby, RN RN David Gomez RN RN rr5 Isidro Martinez RN RN [email or web address] Corrections: (The following items were deleted from the chart) 19:57 19:56 Reassessment: Code stroke called at 1950 [facility] 20:47 19:40 Chief complaint: EMS states: she was found on floor between table and 5 cabinet unresponsive confused, not oriented to event or time. last seen normal an hour ago [facility] 20:47 19:40 Coronavirus screen: unable to obatin [facility] 20:47 19:40 Ebola Screen: Unable to complete the Ebola screening because: [place] [id number] 20:47 19:40 Method Of Arrival: EMS: [facility] 20:47 19:40 BP 132 / 82; Pulse 84bpm; Resp 16bpm; Pulse Ox 98%; Temp 98F; rr5 rr5
--- NOTE | 2020-10-30 22:53 | EDPHYS ---
Physician Documentation [facility] Name: Maribel Soto Age: 55 yrs Sex: Female : 1965 Arrival Date: 10/30/2020 Time: 19:55 Bed 5 Private MD: ED Physician Mj Camacho HPI: 10/30 20:17 This 55 yrs old Female presents to ER via Unassigned with complaints of evelia Altered Mental Status. 20:17 The patient presents with confusion, trouble concentrating. Onset: The symptoms/episode evelia began/occurred today. Possible causes: unknown. Associated signs and symptoms: The patient has no apparent associated signs or symptoms. Current symptoms: In the emergency department the patient's symptoms have improved, mildly. Patient's baseline: Neuro: alert and fully oriented. It is unknown whether or not the patient has had similar symptoms in the past. SURFACE HYDROLOGIST: 21:00 unrecalled rr5 Historical: - Allergies: 20:00 BACLOFEN; rr5 20:00 Bactrim; rr5 20:00 Opana; rr5 20:00 PENICILLINS; rr5 20:00 Zofran; rr5 - Home Meds: 21:31 dicyclomine 20 mg Oral tab 1 tab 3 times per day [Active]; Flovent Inhl twice a day rr5 [Active]; furosemide 20 mg Oral tab 1 tab once daily [Active]; gabapentin Oral 3 times per day [Active]; hydromorphone 4 mg Oral tab 1 tab every 4 hours [Active]; hyoscyamine sulfate 0.125 mg/mL Oral drop 1 mL 4 times per day [Active]; naratriptan Oral daily [Active]; naratriptan 2.5 mg Oral tab 1 tab [Active]; morphine 10 mg Oral CERP 1 cap every 12 hours [Active]; oxymorphone Oral [Active]; Plaquenil 200 mg Oral tab 2 times per day [Active]; Lunesta 2 mg Oral tab 1 tab once daily [Active]; zonisamide 100 mg Oral cap 1 cap once daily [Active]; Synthroid 200 mcg Oral tab once daily [Active]; sumatriptan succinate 6 mg/0.5 mL Sub-Q pnij [Active]; tizanidine 4 mg Oral tab 1 tab every 8 hours [Active]; sumatriptan succinate 6 mg/0.5 mL Sub-Q syrg as needed [Active]; promethazine 50 mg Oral tab 1 tab every 6 hours [Active]; Phenergan Oral 50 mg every 6 hours [Active]; "Inhaler" [Active]; - PMHx: 20:00 Anxiety; Asthma; Chronic pain; Diverticulitis; Fibromyalgia; Bryce; Lupus; rr5 Migraines; Seizures; Ulcers; - Immunization history:: Adult Immunizations up to date. - Social history:: Smoking status: unknown. - Family history:: not pertinent. ROS: 20:18 Constitutional: Negative for fever, chills, and weight loss, Eyes: Negative for injury, evelia pain, redness, and discharge, ENT: Negative for injury, pain, and discharge, Neck: Negative for injury, pain, and swelling, Cardiovascular: Negative for chest pain, palpitations, and edema, Respiratory: Negative for shortness of breath, cough, wheezing, and pleuritic chest pain, Abdomen/GI: Negative for abdominal pain, nausea, vomiting, diarrhea, and constipation, Back: Negative for injury and pain, : Negative for injury, bleeding, discharge, and swelling, MS/Extremity: Negative for injury and deformity, Skin: Negative for injury, rash, and discoloration, Neuro: Negative for headache, weakness, numbness, tingling, and seizure, Psych: Negative for depression, anxiety, suicide ideation, homicidal ideation, and hallucinations, Allergy/Immunology: Negative for hives, rash, and allergies, Endocrine: Negative for neck swelling, polydipsia, polyuria, polyphagia, and marked weight changes, Hematologic/Lymphatic: Negative for swollen nodes, abnormal bleeding, and unusual bruising. Exam: 20:18 Constitutional: This is a well developed, well nourished patient who is awake, alert, evelia and in no acute distress. Head/Face: Normocephalic, atraumatic. Eyes: Pupils equal round and reactive to light, extra-ocular motions intact. Lids and lashes normal. Conjunctiva and sclera are non-icteric and not injected. Cornea within normal limits. Periorbital areas with no swelling, redness, or edema. ENT: Nares patent. No nasal discharge, no septal abnormalities noted. Tympanic membranes are normal and external auditory canals are clear. Oropharynx with no redness, swelling, or masses, exudates, or evidence of obstruction, uvula midline. Mucous membranes moist. Neck: Trachea midline, no thyromegaly or masses palpated, and no cervical lymphadenopathy. Supple, full range of motion without nuchal rigidity, or vertebral point tenderness. No Meningismus. Chest/axilla: Normal chest wall appearance and motion. Nontender with no deformity. No lesions are appreciated. Cardiovascular: Regular rate and rhythm with a normal S1 and S2. No gallops, murmurs, or rubs. Normal PMI, no JVD. No pulse deficits. Respiratory: Lungs have equal breath sounds bilaterally, clear to auscultation and percussion. No rales, rhonchi or wheezes noted. No increased work of breathing, no retractions or nasal flaring. Abdomen/GI: Soft, non-tender, with normal bowel sounds. No distension or tympany. No guarding or rebound. No evidence of tenderness throughout. Back: No spinal tenderness. No costovertebral tenderness. Full range of motion. Female : Normal external genitalia. Skin: Warm, dry with normal turgor. Normal color with no rashes, no lesions, and no evidence of cellulitis. MS/ Extremity: Pulses equal, no cyanosis. Neurovascular intact. Full, normal range of motion. Psych: Awake, alert, with orientation to person, place and time. Behavior, mood, and affect are within normal limits. 20:18 Neuro: Orientation: to person, place, Not oriented to time, situation, Mentation: slow to respond, confused, Memory: immediate memory is impaired, remote memory is impaired, recent memory is impaired, Cranial nerves: grossly normal, is grossly normal based on the patient's age, no acute changes, Cerebellar function: is grossly normal, is grossly normal based on the patient's age, Motor: is normal, is grossly normal based on the patient's age, Sensation: is normal, no obvious gross deficits, appropriate no acute changes, Gait: not tested. Babinski testing is normal, seizure activity, is not displayed by the patient. 21:10 ECG was reviewed by the Attending Physician. evelia Vital Signs: 19:55 BP 132 / 82; Pulse 84; Resp 16; Temp 98; Pulse Ox 98% ; rr5 21:00 BP 121 / 74; Pulse 79; Resp 17; Pulse Ox 99% ; rr5 21:39 BP 125 / 70; Pulse 80; Resp 19; Pulse Ox 98% ; rr5 22:30 BP 112 / 69; Pulse 89; Resp 17; Temp 98; Pulse Ox 99% ; rr5 23:30 BP 110 / 70; Pulse 85; Resp 16; Pulse Ox 99% ; rr5 NIH Stroke Scale Scores: 21:15 NIHSS Score: 0 rr5 Mac Coma Score: 21:00 Eye Response: spontaneous(4). Verbal Response: confused(4). Motor Response: obeys rr5 commands(6). Total: 14. 22:00 Eye Response: spontaneous(4). Verbal Response: oriented(5). Motor Response: obeys rr5 commands(6). Total: 15. 23:30 Eye Response: spontaneous(4). Verbal Response: oriented(5). Motor Response: obeys rr5 commands(6). Total: 15. MDM: 20:07 Patient medically screened. eevlia 20:21 Differential Diagnosis: electrolyte abnormality, alcohol intoxication, hypoglycemia, evelia overdose, TIA, UTI, volume depletion. Data reviewed: vital signs, nurses notes, lab test result(s), EKG, radiologic studies, CT scan, plain films. Data interpreted: business development assistant: rate is 80 beats/min, rhythm is Pulse oximetry: on room air is 98 %. Test interpretation: by ED physician or midlevel provider: ECG, plain radiologic studies. Counseling: I had a detailed discussion with the patient and/or guardian regarding: the historical points, exam findings, and any diagnostic results supporting the discharge/admit diagnosis, the presence of at least one elevated blood pressure reading (>120/80) during this emergency department visit, lab results, radiology results. 10/30 19:56 Order name: Basic Metabolic Panel 10/30 19:56 Order name: CBC with Diff; Complete Time: 22:47 10/30 19:56 Order name: Protime (+inr); Complete Time: 22:47 10/30 19:56 Order name: Ptt, Activated; Complete Time: 22:47 10/30 19:56 Order name: Basic Metabolic Panel; Complete Time: 20:59 EDMS 10/30 20:15 Order name: Acetaminophen; Complete Time: 21:30 evelia 10/30 19:56 Order name: CT Stroke Brain w/o Contrast; Complete Time: 20:59 ss 10/30 19:56 Order name: Stroke CXR 1 View; Complete Time: 21:30 10/30 20:15 Order name: ETOH Level; Complete Time: 21:30 [facility] 10/30 20:15 Order name: Hepatic Function; Complete Time: 21:30 [facility] 10/30 20:15 Order name: Salicylate; Complete Time: 20:59 [facility] 10/30 20:15 Order name: Glucose, Ancillary Testing; Complete Time: 20:59 EDMS 10/30 21:46 Order name: Manual Differential; Complete Time: 22:47 EDMS 10/30 19:56 Order name: EKG; Complete Time: 19:57 ss 10/30 19:56 Order name: Accucheck; Complete Time: 21:35 10/30 19:56 Order name: Cardiac monitoring; Complete Time: 21:36 10/30 19:56 Order name: EKG - Nurse/Tech; Complete Time: 21:35 10/30 19:56 Order name: IV Saline Lock; Complete Time: 21:35 10/30 19:56 Order name: Labs collected and sent; Complete Time: 21:35 10/30 19:56 Order name: NPO; Complete Time: 21:35 10/30 19:56 Order name: O2 Per Protocol; Complete Time: 21:36 10/30 19:56 Order name: O2 Sat Monitoring; Complete Time: 21:36 10/30 19:56 Order name: Stroke Swallow Screen; Complete Time: 21:38 10/30 20:15 Order name: Pelvis XRAY; Complete Time: 21:30 [facility] 10/30 20:15 Order name: Hip Left 2 View XRAY; Complete Time: 21:30 [facility] 10/30 20:15 Order name: Urine Dipstick-Ancillary (obtain specimen); Complete Time: 21:35 [facility] 10/30 20:43 Order name: Labs - recollect needed; Complete Time: 21:34 ss EC:10 Rate is 77 beats/min. Rhythm is regular. QRS [place] is Normal. MI interval is normal. QRS evelia interval is normal. QT interval is normal. No Q waves. T waves are Normal. No ST changes noted. Clinical impression: Normal ECG and No evidence of ischemia. Interpreted by me. Reviewed by me. Administered Medications: 21:00 Drug: NS 0.9% 1000 ml Route: IV; Rate: 1 bolus; Site: Port-a-cath; rr5 22:00 Follow up: Response: No adverse reaction; IV Status: Completed infusion; IV Intake: rr5 1000ml 21:00 Drug: foLIC Acid 1 mg Route: IVPB; Site: Port-a-cath; rr5 22:00 Follow up: Response: No adverse reaction; IV Status: Completed infusion; IV Intake: rr5 1000ml 21:20 Drug: Aspirin Chewable Tablet 324 mg Route: PO; rr5 22:20 Follow up: Response: No adverse reaction rr5 23:20 Drug: HEParin Flush (100 units/mL) 500 units Route: IVP; Site: Port-a-cath; rr5 23:29 Follow up: Response: Medication administered at discharge. rr5 Disposition: 10/30/20 22:52 Discharged to Home. Impression: Anxiety disorder, unspecified, Altered mental status, unspecified - resolved, Pain in left hip. - Condition is Stable. - Discharge Instructions: Nonepileptic Seizures, Seizure, Adult, [id number], Aspirin and Your Heart, Generalized Anxiety Disorder. - Medication Reconciliation Form, Thank You Letter, Antibiotic Education, Prescription Opioid Use form. - Follow up: Private Physician; When: 2 - 3 days; Reason: Recheck today's complaints, Continuance of care, Re-evaluation by your physician. Follow up: Ernesto Laboy MD; When: 2 - 3 days; Reason: Recheck today's complaints, Continuance of care, Re-evaluation by your physician. - Problem is new. - Symptoms have improved. NIH Stroke Scale - NIH Stroke Score Date: 10/30/2020 Time: 21:15 Total Score = 0 1a. Level of Consciousness (LOC) - 0(Alert) 1b. Level of Consciousness (LOC) (Year \\T\\ Age) - 0(Both) 1c. LOC Commands (Open \\T\\ Closes Eyes/Scudding Inspector) - 0(Both) 2. Best Gaze (Lateral Gaze Paresis) - 0(Normal) 3. Visual Field Loss - 0(No visual loss) 4. Facial Palsy - 0(Normal) 5a. Left Arm: Motor (10-second hold) - 0(No drift) 5b. Right Arm: Motor (10-second hold) - 0(No drift) 6a. Left Leg: Motor (5-second hold - always test supine) - 0(No drift) 6b. Right Leg: Motor (5-second hold - always test supine) - 0(No drift) 7. Limb Ataxia (finger/nose \\T\\ heel/nixon - test with eyes open) - 0(Absent) 8. Sensory Loss (pinprick arms/legs/face) - 0(Normal) 9. Best Language: Aphasia (description/naming/reading) - 0(No aphasia) 10. Dysarthria (speech clarity - read or repeat words) - 0(Normal) 11. Extinction and Inattention (visual/tactile/auditory/spatial/personal) - 0(No abnormality) Initials: rr5 Signatures: Dispatcher [employer] EDMS Mj Camacho MD MD cha Smirch, Shelby, RN RN David Barrios RN RN rr5 Corrections: (The following items were deleted from the chart) 23:34 22:52 10/30/2020 22:52 Discharged to Home. Impression: Anxiety disorder, rr5 unspecified; Altered mental status, unspecified - resolved; Pain in left hip. Condition is Stable. Forms are Medication Reconciliation Form, Thank You Letter, Antibiotic Education, Prescription Opioid Use. Follow up: Private Physician; When: 2 - 3 days; Reason: Recheck today's complaints, Continuance of care, Re-evaluation by your physician. Follow up: Ernesto Laboy; When: 2 - 3 days; Reason: Recheck today's complaints, Continuance of care, Re-evaluation by your physician. Problem is new. Symptoms have improved. evelia
[2020-10-30] MEDS ORDERED: HEPARIN 500 UNIT/5 ML SYR IV ONE (23:37)
[2020-10-30 23:42] VITALS: TEMP 98
[2020-10-30 23:46] VITALS: O2SAT 99
[2020-10-30 23:48] VITALS: BP 110/70
--- NOTE | 2020-11-01 07:28 | EKG ---
Test Date: 2020-10-30 Test Time: 21:05:46 Detective Private Eye: RR MEASUREMENT RESULTS: Intervals: Rate: 77 CO: 190 QRSD: 88 QT: 410 QTc: 463 [place]: P: 43 CO: 190 QRS: 41 T: 49 INTERPRETIVE STATEMENTS: Normal sinus rhythm Normal ECG Compared to ECG 09/17/2020 15:58:03 No significant changes Electronically Signed On 11-01-20 07:26:40 CDT by Tom Johnston
== END 2020-10-30 23:34 | disposition home or self-care (01) ==
LOC: ER 19:54
DX: R41.82 Altered mental status, unspecified (principal); F41.9 Anxiety disorder, unspecified; M25.552 Pain in left hip; J45.909 Unspecified asthma, uncomplicated; M79.7 Fibromyalgia; M32.9 Systemic lupus erythematosus, unspecified; E06.3 Autoimmune thyroiditis; G89.29 Other chronic pain
CPT/HCPCS: 96365; 93005; 85025; 80048; 36415; 80320; 80329 ×2; 85610; 82947; 80076; 85730; 70450; 71045; 72170; 73502; 96375; 99285; J1642; J7030

== ENCOUNTER 2021-06-10 16:14 | Emergency (ER) | payer OTHER ==
--- OUTSIDE RECORDS SUMMARY | 2021-06-10 16:17 | XMS REPORT | Continuity of Care Document ---
:1965 Author Organization [facility] t Address [address] [place] [address] Dr. Cheng [address] [place] [address] Care Team Providers Name Role Phone CELSO Attending Clinician Unavailable Problems This patient has no known problems. Allergies, Adverse Reactions, Alerts This patient has no known allergies or adverse reactions. Medications This patient has no known medications. Procedures This patient has no known procedures. Encounters Start End Encounter Admission Attending Care Care Encounter Source Date/Time Date/Time Type Type Clinicians Facility Department ID 2020-05-02 2020-05-02 Outpatient [facility] [id number] 00:00:00 00:00:00 JAVAD [address] 2020-03-21 2020-03-21 Outpatient [facility] [id number] 00:00:00 00:00:00 JAVAD [address] 2019-12-03 2019-12-03 Outpatient [facility] [id number] 00:00:00 00:00:00 JAVAD [address] 2019-10-12 2019-10-12 Outpatient [facility] [id number] 00:00:00 00:00:00 JAVAD [address] 2019-09-24 2019-09-24 Outpatient [facility] [id number] 00:00:00 00:00:00 JAVAD [address] Results Test Description Test Time Test Results Result Source Comments Comments XR Chest 1 View 2019-10-25 Patient: IVAN MENESES Frontal 2 14:41:04 Date/Time11/05/2019 10:25 CDTReason for ExamLine placementReportLOCATION: [id number] VIEWINDICATION: Line placementCOMPARISON: None availableFINDINGS: Right [...] (Electronic Signature): 11/05/2019 2:41 pm XR Fluoroscopy 2019-10-25 Patient: IVAN MENESES in Imaging per 2 Hour 10:29:38 Date/Time11/05/2019 09:10 CDTReason for ExamsurgeryReportLocation [...]
[2021-06-10] MEDS ORDERED: FENTANYL CITR 100 MCG/2 ML ONE (18:35)
[2021-06-10] MEDS ORDERED: ONDANSETRON 4 MG/2 ML VIAL ONE (18:36)
[2021-06-10] MEDS ORDERED: PROMETHAZINE INJ 25 MG/ML AMP ONE (18:55)
[2021-06-10 19:16] LABS: Absolute Lymphocytes (CBC) 1.3 K/uL (0.7-4.9); Hematocrit 35.9 % (36.0-45.0); Lymphocytes % 22.1 % (15.3-44.8); MPV 7.8 fL (7.6-11.3)
[2021-06-10 19:25] LABS: Potassium 4.2 mmol/L (3.5-5.1)
[2021-06-10 19:30] LABS: Urine Blood Negative (Negative); Urine Glucose Negative (Negative); Urine Protein Negative (Negative)
--- NOTE | 2021-06-10 19:36 | RAD REPORT ---
EXAM DESCRIPTION: CT - Spine Lumbar Wo Con - 06/10/2021 7:24 pm CLINICAL HISTORY: Radiculopathy. PAIN COMPARISON: No comparisons TECHNIQUE: Axial noncontrast CT imaging of the lumbar spine was performed with coronal and sagittal re-formatted images. All CT scans are performed using dose optimization technique as appropriate and may include automated exposure control or mA/KV adjustment according to patient size. FINDINGS: No acute lumbar spine fracture seen. No aggressive marrow pattern or malalignment. Paraspinal tissues are normal in thickness. No paraspinal abscess or hematoma seen. Posterior disc bulges are present lower lumbar levels. Possible disc herniation seen at L5-S1. IMPRESSION: No acute lumbar spine abnormality. Degenerative spondylosis is present lower lumbar levels, most notable at L5-S1. Follow-up MR imaging would be recommended on a nonemergent basis.
--- NOTE | 2021-06-10 20:43 | RAD REPORT ---
EXAM DESCRIPTION: CTAbdomen Pelvis W Contrast - 06/10/2021 8:25 pm CLINICAL HISTORY: Abdominal pain. Abd pain;Flank pain COMPARISON: Abdomen Pelvis W Contrast dated 09/01/2019; Abdomen Pelvis W Contrast dated 03/24/2019 ; CT ABD PELVIS W CONTRAST dated 12/28/2014; CT ABD PELVIS W CONTRAST dated 04/03/2013 TECHNIQUE: Biphasic CT imaging of the abdomen and pelvis was performed with 100 ml non-ionic IV cont rast. All CT scans are performed using dose optimization technique as appropriate and may include automated exposure control or mA/KV adjustment according to patient size. FINDINGS: The lung bases are clear.Postsurgical changes about the stomach. The liver, spleen, pancreas, adrenal glands and kidneys are within normal limits. No bowel obstruction, free air, free fluid or abscess. Moderate stool is present throughout the colon . The appendix is not identified as a discrete structure, however, no secondary findings of appendici tis are identified. No evidence of significant lymphadenopathy. No suspicious bony findings. IMPRESSION: No acute intra-abdominal or pelvic finding.
--- NOTE | 2021-06-10 21:17 | EDPHYS ---
Physician Documentation [facility] Name: Maribel Soto Age: 56 yrs Sex: Female : 1965 Arrival Date: 06/10/2021 Time: 16:19 Bed 17 Private MD: ED Physician Ilya Carpenter HPI: 06/10 19:47 This 56 yrs old Female presents to ER via Ambulatory with complaints of Hip Pain, Back mh7 Pain. 19:47 The patient presents with pain that is acute. The symptoms are located in the low back. mh7 Onset: The symptoms/episode began/occurred 3 day(s) ago. The pain radiates to the Left hip. Associated signs and symptoms: Pertinent positives: dysuria, nausea, Pertinent negatives: abdominal pain, chest pain, constipation, fever, headache, hematuria, incontinence, numbness, tingling, urinary retention, vomiting, weakness. The problem was sustained when bending over, when lifting heavy object. Modifying factors: The patient symptoms are alleviated by nothing, the patient symptoms are aggravated by movement, standing. Severity of symptoms: At their worst the symptoms were moderate, 2 day(s) ago, in the emergency department the symptoms are unchanged, despite home interventions. MARKETING PR INTERN: 16:46 LMP N/A - Hysterectomy jh5 Historical: - Allergies: 16:46 Baclofen; jh5 16:46 Bactrim; jh5 16:46 Opana; jh5 16:46 PENICILLINS; jh5 16:46 Zofran; jh5 - PMHx: 16:46 Anxiety; Fibromyalgia; Lupus; Migraines; Asthma; Diverticulitis; Chronic pain; jh5 Seizures; Bryce; Ulcers; - Immunization history:: Adult Immunizations up to date. - Social history:: Smoking status: Patient/guardian denies using tobacco, Patient uses. ROS: 19:47 Constitutional: Negative for fever, chills, and weight loss, Eyes: Negative for injury, mh7 pain, redness, and discharge, ENT: Negative for injury, pain, and discharge, Neck: Negative for injury, pain, and swelling, Cardiovascular: Negative for chest pain, palpitations, and edema, Respiratory: Negative for shortness of breath, cough, wheezing, and pleuritic chest pain, Skin: Negative for injury, rash, and discoloration, Neuro: Negative for headache, weakness, numbness, tingling, and seizure, Psych: Negative for depression, anxiety, suicide ideation, homicidal ideation, and hallucinations, Allergy/Immunology: Negative for hives, rash, and allergies, Endocrine: Negative for neck swelling, polydipsia, polyuria, polyphagia, and marked weight changes, Hematologic/Lymphatic: Negative for swollen nodes, abnormal bleeding, and unusual bruising. Exam: 19:47 Head/Face: Normocephalic, atraumatic. Eyes: Pupils equal round and reactive to light, mh7 extra-ocular motions intact. Lids and lashes normal. Conjunctiva and sclera are non-icteric and not injected. Cornea within normal limits. Periorbital areas with no swelling, redness, or edema. Neck: Trachea midline, no thyromegaly or masses palpated, and no cervical lymphadenopathy. Supple, full range of motion without nuchal rigidity, or vertebral point tenderness. No Meningismus. Chest/axilla: Normal chest wall appearance and motion. Nontender with no deformity. No lesions are appreciated. Cardiovascular: Regular rate and rhythm with a normal S1 and S2. No gallops, murmurs, or rubs. Normal PMI, no JVD. No pulse deficits. Respiratory: Lungs have equal breath sounds bilaterally, clear to auscultation and percussion. No rales, rhonchi or wheezes noted. No increased work of breathing, no retractions or nasal flaring. Skin: Warm, dry with normal turgor. Normal color with no rashes, no lesions, and no evidence of cellulitis. MS/ Extremity: Pulses equal, no cyanosis. Neurovascular intact. Full, normal range of motion. 19:47 Psych: Awake, alert, with orientation to person, place and time. Behavior, mood, and affect are within normal limits. 19:47 Constitutional: The patient appears in no acute distress, alert, awake, uncomfortable. 19:47 Neuro: Orientation: is normal, Mentation: is normal, Memory: is normal, Cranial nerves: grossly normal, Cerebellar function: is grossly normal, Motor: is normal, Sensation: is normal, Gait: not tested. Deep tendon reflexes are normal, Babinski testing is normal, seizure activity, is not displayed by the patient, Abnormal movements: there are no abnormal movements. 19:47 Abdomen/GI: Inspection: obese Bowel sounds: normal, in all quadrants, Palpation: mh7 moderate abdominal tenderness, in the suprapubic area and left lower quadrant, mass, is not appreciated, rebound tenderness, is not appreciated, voluntary guarding, is not appreciated, involuntary guarding, is not appreciated, no appreciated organomegaly, Rectal exam: the exam is deferred, because of patient request, Indicators: McBurney's point is not tender, Palomares's sign is negative, Rovsing's sign is negative, Obturator sign is negative, Psoas sign is negative, Liver: no appreciated palpable abnormalities, Hernia: not appreciated. 19:47 Back: pain, that is mild, of the lumbar area, ROM is painful, with all movement, mh7 normal spinal alignment noted, CVA tenderness, that is mild, is noted on the left, vertebral tenderness, is appreciated at Lumbar, muscle spasm, is appreciated in the lumbar area, Straight leg raises: left lower extremity illicits pain, at 30 degrees. Vital Signs: 16:43 BP 112 / 89; Pulse 98; Resp 18; Temp 98.1; Pulse Ox 99% ; Weight 113.4 kg; Height 5 ft. jh5 9 in. (175.26 cm); Pain 10/10; 19:40 BP 137 / 86 LA Supine (auto/reg); Pulse 74 MON; Resp 20 S; Temp 98.3(O); Pulse Ox 97% tk1 on R/A; Pain 10/10; 16:43 Body Mass Index 36.92 (113.40 kg, 175.26 cm) jh5 Oxford Coma Score: 19:40 Eye Response: spontaneous(4). Verbal Response: oriented(5). Motor Response: obeys tk1 commands(6). Total: 15. MDM: 21:11 Differential diagnosis: arthritis, chronic back pain, Fracture Neoplasm Osteoarthritis mh7 Osteoporosis Pyelonephritis ruptured disc, Ureterolithiasis vertebral fracture. Data reviewed: vital signs, nurses notes, old medical records, lab test result(s), CBC, electrolytes, urinalysis, radiologic studies, CT scan. Data interpreted: Pulse oximetry: on room air is 97 %. Interpretation: normal. Counseling: I had a detailed discussion with the patient and/or guardian regarding: the historical points, exam findings, and any diagnostic results supporting the discharge/admit diagnosis, the presence of at least one elevated blood pressure reading (>120/80) during this emergency department visit, lab results, radiology results, the need for outpatient follow up, to return to the emergency department if symptoms worsen or persist or if there are any questions or concerns that arise at home. Response to treatment: the patient's symptoms have markedly improved after treatment, patient is well hydrated. 21:16 Patient medically screened. [facility] 06/10 17:51 Order name: CBC with Diff [facility] 06/10 17:51 Order name: Chem 7 [facility] 06/10 17:51 Order name: Urine Culture [facility] 06/10 17:51 Order name: CBC with Automated Diff; Complete Time: 19:30 [facility] 06/10 17:52 Order name: Basic Metabolic Panel; Complete Time: 20:27 [facility] 06/10 17:52 Order name: Urine Culture [facility] 06/10 17:51 Order name: CT Lumbar Spine Wo Con; Complete Time: 19:37 [facility] 06/10 19:29 Order name: Urine Dipstick-Ancillary; Complete Time: 19:37 [facility] 06/10 19:54 Order name: CT Abd/Pelvis - IV Contrast Only; Complete Time: 21:04 [facility] 06/10 17:51 Order name: Bladder Scanner; Complete Time: 18:30 [facility] 06/10 17:52 Order name: Misc. Order: Scan the patient's bladder with the bladder scanner then have kdr the patient attempt to void. Post void rescan the bladder. Record amount out with the cath; Complete Time: 18:30 06/10 18:02 Order name: IV Start; Complete Time: 19:05 2 06/10 19:06 Order name: Ricci; Complete Time: 19:18 tw2 Administered Medications: 19:00 Drug: Phenergan (promethazine) 25 mg Route: IVP; Site: Port-a-cath; tw2 19:02 Drug: fentaNYL (PF) 100 mcg Route: IVP; Site: Port-a-cath; tw2 19:06 Not Given (pt allergicc): Zofran (Ondansetron) 4 mg IVP once; over 2 minutes tw2 21:18 Drug: HEParin Flush (100 units/mL) 500 units Route: IVP; Site: right subclavian; tk1 Disposition Summary: 06/10/21 21:16 Discharge Ordered Location: Home mh7 Problem: an acute exacerbation mh7 Symptoms: have improved mh7 Condition: Stable [facility] Diagnosis - Low back pain - Degenerative disc, bulging disc 7 - Constipation, unspecified [facility] Followup: [facility] - With: Private Physician - When: 1 - 2 days - Reason: Worsening of condition, Recheck today's complaints, Continuance of care, Re-evaluation by your physician Discharge Instructions: - Discharge Summary Sheet 7 - Acute Back Pain, Adult 7 - Chronic Back Pain [facility] - Musculoskeletal Pain [facility] - Constipation, Adult, [id number] [facility] Forms: - Medication Reconciliation Form [facility] - Thank You Letter [facility] - Antibiotic Education [facility] - Prescription Opioid Use [facility] Prescriptions: - Dulcolax (bisacodyl) 10 mg Rectal suppository - insert 1 suppository by RECTAL route once daily As needed as needed for [facility] constipation; 5 suppository; Refills: 0, Product Selection Permitted - Colace 100 mg Oral Tablet - take 1 tablet by ORAL route every 12 hours; 14 tablet; Refills: 0, Product [facility] Selection Permitted - Lactulose 10 gram/15 mL Oral Solution - take 30 milliliters by ORAL route once daily As needed; 150 milliliter; [facility] Refills: 0, Product Selection Permitted Signatures: Dispatcher [employer] Bakari Torres MD MD [facility] Sanjuana Hall RN RN tw2 Ilya Carpenter MD MD 7 Nga Hernández RN RN jh5 Joanna Toscano 1
--- NOTE | 2021-06-10 21:17 | ER ---
Nurse's Notes [facility] Name: Maribel Soto Age: 56 yrs Sex: Female : 1965 Arrival Date: 06/10/2021 Time: 16:19 Bed 17 Private MD: Diagnosis: Low back pain-Degenerative disc, bulging disc;Constipation, unspecified Presentation: 06/10 16:43 Chief complaint: Patient states: severe back pain and trouble urinating x2 days. [facility] Coronavirus screen: Vaccine status: Patient reports being unvaccinated. Client denies travel out of the [place] in the last 14 days. Ebola Screen: Patient negative for fever greater than or equal to 101.5 degrees Fahrenheit, and additional compatible Ebola Virus Disease symptoms Patient denies exposure to infectious person. Patient denies travel to an Ebola-affected area in the 21 days before illness onset. Initial Sepsis Screen: Does the patient meet any 2 criteria? No. Patient's initial sepsis screen is negative. Does the patient have a suspected source of infection? No. Patient's initial sepsis screen is negative. Risk Assessment: Do you want to hurt yourself or someone else? Patient reports no desire to harm self or others. Onset of symptoms was June 08, 2021. 16:43 Method Of Arrival: Ambulatory [facility] 16:43 Acuity: LILIAN 3 [facility] Triage Assessment: 16:46 General: Appears in no apparent distress. uncomfortable, obese, well developed, well 5 nourished, Behavior is calm, cooperative, appropriate for age. Pain: Complains of pain in back. Musculoskeletal: Circulation, motion, and sensation intact. Capillary refill < 3 seconds. FASHION MODEL: 16:46 LMP N/A - Hysterectomy [facility] Historical: - Allergies: 16:46 Baclofen; [facility] 16:46 Bactrim; [facility] 16:46 Opana; [facility] 16:46 PENICILLINS; [facility] 16:46 Zofran; [facility] - PMHx: 16:46 Anxiety; Fibromyalgia; Lupus; Migraines; Asthma; Diverticulitis; Chronic pain; [facility] Seizures; Bryce; Ulcers; - Immunization history:: Adult Immunizations up to date. - Social history:: Smoking status: Patient/guardian denies using tobacco, Patient uses. Screenin:53 Abuse screen: Denies threats or abuse. Nutritional screening: No deficits noted. tw2 Tuberculosis screening: No symptoms or risk factors identified. Fall Risk Secondary diagnosis (15 points) impaired mobility, Ambulatory Aid- Crutches/Cane/Walker (15 pts). Assessment: 17:50 Reassessment: provider at bedside at this time. General: Appears in no apparent tw2 distress. obese, well groomed, Behavior is calm, cooperative, appropriate for age. Pain: Complains of pain in back. Neuro: Level of Consciousness is awake, alert, obeys commands, Oriented to person, place, time, situation. Cardiovascular: Patient's skin is warm and dry. Respiratory: Airway is patent Respiratory effort is even, unlabored, Respiratory pattern is regular, symmetrical. GI: No signs and/or symptoms were reported involving the gastrointestinal system. Musculoskeletal: Range of motion: intact in all extremities, Reports pain in back. 19:52 Reassessment: No changes from previously documented assessment. Patient states symptoms tk1 have not improved. Pain: Complains of pain in back Pain does not radiate. Pain currently is 10 out of 10 on a pain scale. Quality of pain is described as sharp, Pain began 1 day ago. Is continuous, Alleviated by medications, Aggravated by Noted to be restless, Also complains of no other associated symptoms. Current management is with Goal of pain control is to be pain free, sleep comfortably. Neuro: Level of Consciousness is awake, alert, obeys commands, Oriented to person, place, time, situation. Cardiovascular: Capillary refill < 3 seconds in right in left in bilateral fingers Patient's skin is warm and dry. Respiratory: Airway is patent Respiratory effort is even, unlabored, Respiratory pattern is regular, symmetrical. GI: No signs and/or symptoms were reported involving the gastrointestinal system. Musculoskeletal: Range of motion: intact in all extremities. 21:00 Reassessment: Patient continues to C/O no improvement of pain after medication given. tk1 Patient also asking when will nobles cath be discontinued. Dr. Carpenter updated. Dr. Carpenter stated, patient can have it out whenever she wants it. Flushed right upper chest mediport with 20 cc [address] saline after CT with contrast. Patient states symptoms have not improved. 21:00 Reassessment: 10 mls removed from nobles balloon. D/C'd nobles cath without incident. tk1 Vital Signs: 16:43 BP 112 / 89; Pulse 98; Resp 18; Temp 98.1; Pulse Ox 99% ; Weight 113.4 kg; Height 5 ft. jh5 9 in. (175.26 cm); Pain 10/10; 19:40 BP 137 / 86 LA Supine (auto/reg); Pulse 74 MON; Resp 20 S; Temp 98.3(O); Pulse Ox 97% tk1 on R/A; Pain 10/10; 16:43 Body Mass Index 36.92 (113.40 kg, 175.26 cm) jh5 Mac Coma Score: 19:40 Eye Response: spontaneous(4). Verbal Response: oriented(5). Motor Response: obeys tk1 commands(6). Total: 15. ED Course: 16:19 Patient arrived in ED. mr 16:46 Triage completed. jh5 16:46 Arm band placed on right wrist. jh5 17:03 Bakari Fairchild MD is Attending Physician. kdr 17:35 Bed in low position. Call light in reach. Pulse ox on. NIBP on. tw2 17:53 Sanjuana Hall, RN is Primary Nurse. tw2 18:16 Bladder scan completed. 130mL. Difficult to scan due to anatomy. Patient tolerated well.mb4 18:17 Assisted to bathroom. mb4 18:29 Bladder scan completed. 29mL post void. Patient tolerated well. mb4 19:03 Primary Nurse role handed off by Sanjuana Hall, RN 2 19:07 Attending Physician role handed off by Bakari Fairchild MD 7 19:07 Ilya Carpenter MD is Attending Physician. 7 19:09 Nobles cath inserted, using sterile technique, 18 Fr., by nv, balloon inflated, to tw2 gravity drainage, returned clear yellow urine. Patient tolerated well. vincent Lugo at bedside as auto body builder apprentice. 19:23 CT Lumbar Spine Wo Con In Process Unspecified. EDMS 19:25 No provider procedures requiring assistance completed. IV is patent, is intact. tk1 19:39 Joanna Toscano is Primary Nurse. tk1 19:57 X-ray(s) taken. tk1 20:25 CT Abd/Pelvis - IV Contrast Only In Process Unspecified. EDMS Administered Medications: 19:00 Drug: Phenergan (promethazine) 25 mg Route: IVP; Site: Port-a-cath; tw2 19:02 Drug: fentaNYL (PF) 100 mcg Route: IVP; Site: Port-a-cath; tw2 19:06 Not Given (pt allergicc): Zofran (Ondansetron) 4 mg IVP once; over 2 minutes tw2 21:18 Drug: HEParin Flush (100 units/mL) 500 units Route: IVP; Site: right subclavian; tk1 Output: 19:40 Urine: 75ml (Nobles); Total: 75ml. tk1 21:19 Urine: 1100ml (Nobles); Total: 1175ml. tk1 Outcome: 21:16 Discharge ordered by . 7 21:40 Discharged to home via wheelchair. tk1 21:40 Condition: stable 21:40 Discharge instructions given to patient, Instructed on discharge instructions, follow up and referral plans. medication usage, Demonstrated understanding of instructions, follow-up care, medications, Prescriptions given X 2. 21:46 Patient left the ED. tk1 Signatures: Dispatcher [employer] EDMS Bakari Fairchild MD MD [facility] Abdoul Snow mr Sanjuana Hall, RN RN tw2 Lilian Rob mw2 Brittney Hernandez mb4 Ilya Carpenter MD MD 7 Nga Hernández, RN RN 5 Joanna Toscano tk1 Corrections: (The following items were deleted from the chart) 19:20 19:08 Nobles cath inserted, using sterile technique, 18 Fr., by ED staff, balloon tw2 inflated, to gravity drainage, clamped. returned cloudy urine. Patient tolerated well. 4 19:56 19:40 Reassessment: tk1 tk1
[2021-06-10] MEDS ORDERED: HEPARIN 500 UNIT/5 ML SYR IV ONE (21:18)
[2021-06-10 22:07] VITALS: BP 137/86; TEMP 98.3; O2SAT 97
== END 2021-06-10 21:46 | disposition home or self-care (01) ==
LOC: ER 16:14
DX: M51.36 Other intervertebral disc degeneration, lumbar region (principal); M47.896 Other spondylosis, lumbar region; R19.7 Diarrhea, unspecified
CPT/HCPCS: 87088; 85025; 87086; 80048; 36415; 82565; 81003; 72131; 74177; 51702; 99284; Q9967; J2550; J3010; J1642; J2405

== ENCOUNTER 2022-01-19 05:15 | Emergency (ER) | payer OTHER ==
--- OUTSIDE RECORDS SUMMARY | 2022-01-19 05:24 | XMS REPORT | Continuity of Care Document ---
:1965 Author Organization [facility] t Address [address] [place] [address] Care Team Providers Name Role Phone Juliana Carver MD Primary Care Physician [phone] Robert Kruger Attending Clinician JAVAD HOUSTON Attending Clinician Unavailable Deep Walsh Attending Clinician Deep Walsh Admitting Clinician Payers Payer Name Policy Type Policy Number Effective Date Expiration Date S ource Problems Condition Condition Condition Status Onset Resolution Last Treating Co mments Source Name Details Category Date Date Treatment Clinician Date ABDOMINAL ABDOMINAL Diagnosis Active 2013-09-14 Memoria PAIN PAIN 09-13 09:19:00 l GASTRITIS GASTRITIS 00:00: Herm hernandez Active 00 09/13/2013 [facility] VOMITING, VOMITING, Diagnosis Active 2013-09-13 Memoria WEAKNESS WEAKNESS 09-13 14:41:00 l Active 00:00: [place] 09/13/2013 [facility] ABDOMINAL ABDOMINAL Diagnosis Active 2011-12-04 Memoria PAIN,VOMIT PAIN,VOMIT 12-02 12:49:00 l ING ING Active 00:00: Uday n 12/03/2011 [facility] Anemia Anemia Problem Resolve 2021-09-02 Mem oria (disorder) (disorder) d 21:39:08 l Resolved [place] Problem 09/02/2021 [facility] Asthma Asthma Problem Resolve 2021-09-02 Mem oria (disorder) (disorder) d 21:39:08 l Resolved [place] Problem 09/02/2021 [facility] Chronic Chronic Problem Resolve 2021-09-02 M emoria fatigue fatigue d 21:39:08 l syndrome syndrome Uday n (disorder) (disorder) Resolved Problem 09/02/2021 [facility] Diverticul Diverticu Problem Resolve 2021-09-02 Memoria ar disease lar d 21:39:08 l (disorder) disease Vani nn (disorder) Resolved Problem 09/02/2021 [facility] Fibromyosi Problem Resolve 2021-09-02 Memoria tis Fibromyosi d 21:39:08 l (disorder) tis Uday n (disorder) Resolved Problem 09/02/2021 [facility] Migraine Migraine Problem Resolve 2021-09-02 Memoria (disorder) (disorder) d 21:39:08 l Resolved Dre Problem 09/02/2021 [facility] Ulcer Ulcer Problem Resolve 2021-09-02 Bipin bernardo (disorder) (disorder) d 21:39:08 l Resolved Dre Problem 09/02/2021 [facility] Headache Headache Problem Active 2021-09-02 Memoria (finding) (finding) 21:39:08 l Active Dre Problem 09/02/2021 [facility] Lupus Lupus Problem Active 2021-09-02 Memor ia erythemato erythemato 21:39:08 l chace chace [place] (disorder) (disorder) Active Problem 09/02/2021 [facility] Pain Pain Problem Active 2021-09-02 Memor ia (finding) (finding) 21:39:08 l Active Dre Problem 09/02/2021 [facility] Anxiety Anxiety Problem Active 2021-09-02 Me moria (finding) (finding) 21:39:08 l Active [place] Problem 09/02/2021 [facility] Diabetes Diabetes Problem Active 2021-09-02 Memoria mellitus mellitus 21:39:08 l (disorder) (disorder) He rmann Active Problem 09/02/2021 [facility] Problem Active 2021-09-02 Memoria sis esis 21:39:08 l (disorder) (disorder) He rmann Active Problem 09/02/2021 [facility] Hand pain Hand pain Problem Active 2021-09-02 Memoria (finding) (finding) 21:39:08 l Active Dre Problem 09/02/2021 [facility] Hypothyroi Problem Active 2021-09-02 M emoria dism Hypothyroi 21:39:08 l (disorder) dism Uday n (disorder) Active Problem 09/02/2021 [facility] Insomnia Insomnia Problem Active 2021-09-02 Memoria (disorder) (disorder) 21:39:08 l Active Dre Problem 09/02/2021 [facility] Irritable Irritable Problem Active 2021-09-02 Memoria colon colon 21:39:08 l (disorder) (disorder) He rmann Active Problem 09/02/2021 [facility] Migraine Migraine Problem Active 2021-09-02 Memoria without without 21:39:08 l aura aura [place] (disorder) (disorder) Active Problem 09/02/2021 [facility] Seizure Seizure Problem Active 2021-09-02 Me moria (finding) (finding) 21:39:08 l Active [place] Problem 09/02/2021 [facility] Weakness Weakness Problem Active 2021-09-02 Memoria of hand of hand 21:39:08 l (finding) (finding) Herm hernandez Active Problem 09/02/2021 [facility] Headache Headache Problem Active 2011-12-12 Memoria Active 08:58:08 l Problem [place] 12/12/2011 [facility] Lupus Lupus Problem Active 2011-12-12 Memor ia Active 08:58:08 l Problem [place] 12/12/2011 [facility] Pain Pain Problem Active 2011-12-12 Memor ia Active 08:58:08 l Problem [place] 12/12/2011 [facility] ABDMNAL ABDMNAL Diagnosis Active 2013-09-14 Memoria PAIN PAIN 09:19:00 l UNSPCF UNSPCF [place] SITE SITE Active [facility] GASTRITIS GASTRITIS Diagnosis Active 2013-09-14 Memoria NEC NEC Active 09:19:00 l [facility] ADMINISTRT ADMINISTR Diagnosis Active 2011-12-04 Memoria VE ENCOUNT TVE 12:49:00 l NOS ENCOUNT [place] NOS Active [facility] Bipolar Bipolar Problem Resolve 2014-0 2021-09-02 2021-09-02 Memoria disorder disorder d - 21:39:08 21:39:08 l (disorder) (disorder) 00:00: He rmann Resolved 00 09/14/2013 Problem 09/02/2021 [facility] Allergies, Adverse Reactions, Alerts Allergy Allergy Status Severity Reaction(s) Onset Inactive Treating Comm ents Source Name Type Date Date Clinician Baclofen Propensi Active Swelling 0 Meth rita ty to - st adverse 00:00: Hospita reaction 00 l s to drug Penicill Propensi Active Unknown 0 Metho di ins ty to Reaction - adverse 00:00: Hospita reaction 00 l s to drug Ondanset Propensi Active GI 0 Method i sj Hcl ty to Intolerance 06-07 adverse 00:00: Hospita reaction 00 l s to drug penicill Drug Active 72582 [facility] Zofran Drug Active 76231 [facility] Opana ER Drug Active rash [facility] penicill Drug Active 66832 [facility] Zofran Drug Active 29936 [facility] Opana ER Drug Active rash [facility] penicill Drug Active 61096 [facility] Zofran Drug Active 30384 [facility] Opana ER Drug Active rash [facility] penicill Drug Active 90877 [facility] Zofran Drug Active 99613 [facility] Opana ER Drug Active rash [facility] penicill Drug Active 78921 [facility] Zofran Drug Active 61419 [facility] Opana ER Drug Active rash [facility] penicill Drug Active 82917 [facility] Zofran Drug Active 44365 [facility] Opana ER Drug Active rash [facility] penicill Drug Active 04174 [facility] penicill penicill Active Memori a ins ins l [place] baclofen baclofen Active Memori a l Dre Zofran Zofran Active Memoria l Dre Food Food Active Memoria Eggs Eggs l Dre Zofran Drug Active 73131 [facility] Opana ER Drug Active rash [facility] penicill Drug Active 25678 [facility] Zofran Drug Active 23095 [facility] Opana ER Drug Active rash [facility] Family History Family Member Diagnosis Comments Start Date Stop Date Source [facility] Hy[facility] Social [facility] Social Habit Start Date Stop Date Quantity Comments Source History SDIL Spiritism Alcohol Std Hospital Drinks History [facility] Alcohol Binge Hospital Social History 2021-06-06 2021-06-06 [facility] ermann 15:50:01 15:50:01 Alcohol intake 2019-12-03 2019-12-03 Lifetime Spiritism 00:00:00 00:00:00 non-drinker Hospital (finding) History [facility] 2019-06-07 2019-06-07 1 Spiritism Alcohol Frequency 00:00:00 00:00:00 Hospita l Tobacco use and 2019-06-07 2019-06-07 Smokeless tobacco Me thodist exposure 00:00:00 00:00:00 non-user Hospital Sex Assigned At [birth year] Spiritism 00:00:00 00:00:00 Hospital Smoking Status Start Date Stop Date Source Social History [facility] Medications Ordered Filled Start Stop Current Ordering Indication Dosage Frequency Signature Comments Components Source Medication Medication Date Date Medication? Clinician (SIG) Name Name naratriptan Yes See Memori a 2.5 mg oral 4-07 Instructio l tablet 14:51: ns, TAKE [place] 00 ONE (1) TABLET(S) BY MOUTH AT ONSET OF HEADACHE. MAY REPEAT IN 2 HOURS NEEDED (MAX DOSE OF 2 TABLETS DAILY)., # 9 ea, 1 Refill(s), Pharmacy: [facility], 170.18, cm, 06/06/21 9:33:00 [employer], Height, 111.364, kg, 06/06/21 9:33:00 [employer]... naratriptan Yes See Memori a 2.5 mg oral 1-24 Instructio l tablet 14:43: ns, TAKE [place] 00 ONE (1) TABLET(S) BY MOUTH AT ONSET OF HEADACHE. MAY REPEAT IN 2 HOURS NEEDED (MAX DOSE OF 2 TABLETS DAILY)., # 9 ea, 2 Refill(s), Pharmacy: [facility] [id number], 170.18, cm, 06/06/21 9:33:00 [employer], Height, 111.364, kg, 06/06/21 9:33:00 CS... Rimegepant 0 Yes 75 mg = 1 Me moria 75 MG 1-12 tab, PO, l Disintegrat 16:32: Q48H, # 15 Dre ing Oral 00 tab, 1 Tablet [facility], 170.18, cm, 06/06/21 9:33:00 [employer], Height, 111.364, kg, 06/06/21 9:33:00 [employer], Weight naratriptan Yes 2.5 mg = 1 Memoria 2.5 mg oral 1-12 tab, PO, l tablet 16:31: PRN, PRN Dre 00 migraine, TAKE ONE (1) TABLET(S) BY MOUTH AT ONSET OF HEADACHE. MAY REPEAT IN 2 HOURS NEEDED. MAX DOSE OF 2 TABLETS DAILY., # 9 tab, 1 Refill(s), Pharmacy: [facility], 170.18, cm, 06/06/21 9:33:00 [employer]ACH[employer], He... naratriptan No TAKE ONE Me moria 2.5 mg oral 1-12 (1) l tablet 16:03: TABLET(S) Uday n 00 BY MOUTH AT ONSET OF HEADACHE. MAY REPEAT IN 2 HOURS NEEDED. MAX DOSE OF 2 TABLETS DAILY. promethazin Yes TAKE ONE Me moria e 50 mg 1-12 (1) l oral tablet 16:03: TABLET(S) H ermann 00 BY MOUTH FOUR TIMES A DAY. eszopiclone Yes TAKE ONE Me moria 2 mg oral 1-12 (1) l tablet 16:03: TABLET(S) Uday n 00 BY MOUTH AT BEDTIME. hyoscyamine Yes TAKE ONE Me moria 0.125 mg 1-12 (1) TO TWO l oral 16:03: (2) [place] tablet, 00 TABLET(S) disintegrat BY MOUTH ing EVERY FOUR TO SIX HOURS. hydromorpho 2021-0 Yes 4 mg = 1 Me moria ne 4 mg 1-12 tab, PO, l oral tablet 16:02: Q4H, PRN He rmann 00 Pain, 0 Refill(s) omeprazole 0 Yes 40 mg = 1 Me moria 40 mg oral 1-12 cap, PO, l delayed 16:02: Daily, # Uday n release 00 30 cap, 0 capsule Refill(s) zonisamide 0 Yes [id number] TAKE THREE [facility] (ZONEGRAN) 4-23 (3) st 100 MG 00:00: CAPSULE(S) Hospi ta capsule 00 BY MOUTH l ONCE A DAY. levothyroxi 2019-05 Yes 75ug QD Take 75 Met hodi ne 1-[address] (SYNTHROID) 00:00: mouth Hospi ta 75 mcg 00 every l tablet morning. erythromyci 2019-05 Yes 250mg QD Take 250 M ethodi n base 1-[address] (E-MYCIN) 16:07: mouth Hospita 250 MG 41 daily. l tablet SUMAtriptan 2019-05 Yes 6mg Inject 6 Me thodi succinate 0-[address] (IMITREX 15:29: the skin. Hosp jolly STATDOSE) 6 22 l mg/0.5 mL kit promethazin 2019-05 Yes 50mg Take 50 mg [facility] e 0-[address] (PHENERGAN) 15:29: Hospit a 50 MG 22 l tablet naratriptan 2019-05 Yes 2.5mg Take 2.5 M ethodi (AMERGE) 0-[address] 2.5 MG 15:29: mouth. Hospita tablet 22 l fluticasone 2019-05 Yes 1{puff} Inhale 1 [facility] propionate 0-[address] (FLOVENT 15:29: Hospita HFA) 44 22 l mcg/actuati on inhaler hydroxychlo 2019-05 Yes 200mg Take 200 M ethodi roquine 0-[address] (PLAQUENIL) 15:29: mouth. Hosp jolly 200 mg 22 l tablet eszopiclone 2019-05 Yes 2mg QD Take 2 mg M ethodi (LUNESTA) 2 0-[address] MG tablet 15:29: nightly. Hosp jolly 22 Take l immediatel y before bedtime tiZANidine 2019-05 Yes 4mg Q8H Take 4 mg Me thodi (ZANAFLEX) 0-[address] 4 MG tablet 15:29: every 8 Hos katrina 22 (eight) l hours as needed for muscle spasms. furosemide 2019-05 Yes 20mg Q.5D Take 20 mg M ethodi (LASIX) 20 0-[address] mg tablet 15:29: (two) Hospita 22 times a l day. hydromorPHO 2019-05 Yes [id number] 4mg Q4H Take 4 mg [facility] NE 0-[address] (DILAUDID) 15:29: every 4 Hosp jolly 4 MG tablet 22 (four) l hours as needed for moderate pain .acute pain. gabapentin Yes [id number] 600mg Q.[id number] Take 1 [facility] (NEURONTIN) 09-[id number] 600 mg 00:00: 3D (600 mg Hospita tablet 00 total) by l mouth 3 (three) times a day. heparin Yes Notes: Memoria [...] l Oral 23:00: feeds may Dre Suspension 00 interfere with the absorption of this medication . Shake well. Take 1 hr before or 2 hrs after antacids, dairy pdt, minerals & meals. (Same As: Carafate) Ferrlecit No Notes: Memori a -30 (sodium l 14:33: ferric gluconate complex (elemental [...] 4 days Memor ia -28 l 23:00: [place] 00 Hydromorpho No 6 mg, 30 Me moria ne 4-28 mL, Route: l 22:30: IV, PLANER OFFBEARER Dose: 0.2 mg, PLANER OFFBEARER Lockout: 10 minutes, 4 Hour Limit (In [...] l 20:54: Romazicon) Naloxone No Notes: Memoria 09-20 Same as l 20:54: Narcan Labetalol No Notes: Memori a 09-20 (Same as: l 20:54: Normodyne, Trandate) Push over 2 minutes Give bolus over 2-3 minutes. Hydromorpho No Notes: Bipin bernardo ne 09-20 Same as: l 20:54: Dilaudid Morphine No Notes: Memoria 09-20 (Same l 20:54: as:MORPhin e Sulfate) Exparel No Notes: Memoria 09-20 (Same as: l 14:00: Exparel) NOT FOR [...] 30 day, Stop date: 10/19/13 23:59:00 Flintstones 2014-0 No 1 tab, Bipin bernardo with Iron 09-18 Route: l Chewable 14:00: CHEW, Drug Her walalce 00 Form: CHEWTAB, Dosing Weight 72.727, kg, Daily, Start date: 09/18/13 9:00:00, Duration: 30 day, Stop date: 10/17/13 9:00:00 multivitami No Notes: Bipin bernardo n - Non-Formul l 14:00: cecelia Drug - Dre Give with Food (Same as:Poly-Vi -Greer Chewable) Relistor No Notes: Memoria 4- Same as: l 02:00: Relistor [place] 00 Restricted to Palliative Care Sodium No 1,000 mL, Memori a Chloride 09-17 Rate: 30 l 0.154 17:19: ml/hr, Dre MEQ/ML 00 Infuse Injectable over: 33.3 Solution hr, Route: IV, Dosing Weight 72.727 kg, Total Volume: 1,000, Start date: 09/17/13 12:19:00, Stop date: 09/20/13 0:00:00 Sumatriptan No Notes: Bipin bernardo 50 MG Oral 4-25 (Same As: l Tablet 16:50: Imitrex) Dre [Imitrex] Tylenol No Notes: Do Memor ia 4-25 not exceed l 16:49: 4 gm/day. [place] 00 (Same as: Tylenol) Klonopin No Notes: Memoria 4-25 (Same As: l 14:00: KlonoPIN) Diphenhydra No Notes: Bipin bernardo mine 4-25 (Same as: l 11:00: Benadryl) Ketorolac No 4 days Memor ia 4-25 l 10:49: [place] Sumatriptan No Notes: Bipin bernardo 50 MG Oral 4-25 (Same As: l Tablet 10:46: Imitrex) [place] [Imitrex] 00 Relistor No Notes: Memoria 4-25 Same as: l 02:00: Relistor [place] 00 Restricted to Palliative Care Miralax No Notes: Memoria 4-24 Dissolve l 14:00: in 8 oz of Dre 00 water or juice. (Same as: Miralax) Docusate No Notes: Memoria Sodium 100 4-23 (Same as: l MG Oral 22:00: Colace) Dre Capsule 00 (Do Not [Colace] Crush) Plaquenil No Notes: Memori a 4-23 (Same as: l 17:54: Plaquenil) Dre 00 Antioxidant No 30 mL, Bipin bernardo Multiple 23 Route: PO, l Vitamins 14:00: Dosing Dre and 00 Weight Minerals 72.727, oral liquid kg, Daily, Start date: 09/15/13 9:00:00, Duration: 30 day, Stop date: 10/14/13 9:00:00 Reglan No Notes: Memoria 4-22 (Same as: l 23:00: Reglan) Dre 00 Thiamine No Notes: Memoria 4-22 (Same As: [...] 10/14/13 9:00:00 Ferrlecit No Notes: Memori a -22 (sodium l 14:16: ferric gluconate complex (elemental iron) 62.5 mg/5 ml INJ) "Limited stability. Use immediatel y after admixture" (Same as: Ferrlecit) Vitamin B No Notes: Memori a 12 -22 (Same As: l 14:15: Vitamin B12) Temazepam No Notes: Memori a 4-22 (Same As: l 04:37: Restoril) [place] 00 Sodium No 1,000 mL, Memori a Chloride 09-14 Rate: 30 l 0.154 00:13: ml/hr, [place] MEQ/ML 00 Infuse Injectable over: 33.3 Solution hr, Route: IV, Dosing Weight 72.727 kg, Total Volume: 1,000, Start date: 09/13/13 19:13:00, Duration: 30 day, Stop date: 10/13/13 19:12:00 Saline No Notes: Memoria Flush 0.9% -22 (Same as: l 00:13: BD [place] 00 Posiflush) Acetaminoph No Notes: Max Memoria en -22 acetaminop l 00:13: hen = [place] 00 4000mg/day (4 gm/day). (Same as: Tylenol) Morphine No Notes: Memoria 4-22 (Same l 00:13: as:MORPhin e Sulfate) Phenergan No Notes: Do Mem oria 4-22 not give l 00:13: IV push. Dre 00 (Same as: Phenergan) Protonix No Notes: For Mem oria 4-22 IV push l 00:13: reconstitu Dre 00 te with 10 ml 0.9% sodium chloride and push over 2 minutes. (Same as: Protonix) Temazepam Yes 30 mg = 1 Mem oria 30 MG Oral 4-21 cap, PO, l Capsule 23:48: Bedtime, Uday multani [Restoril] 00 Sleep, # 30 cap, 0 [...] Memoria 4-21 (Same as: l 19:30: Reglan) [place] Protonix No Notes: For Mem oria -21 [...] Nico 5 mL, l 18:16: Route: IV, [place] 00 Drug form: SOLN, ONCE, Start date: 12/10/11 [...] P 2,000 mg, Me moria gluconate + 7- Nico 20 mL, l Sodium 18:40: Route: IV, Vani nn Chloride 00 ONCE, 0.9% IV 100 Start mL date: 12/06/11 13:40:00, Stop date: 12/06/11 13:40:00 SoluCortef No Garth P 100 mg, 2 Memoria 7-13 Nico mL, Route: l 18:40: IV, Drug form: PDR/INJ, ONCE, Start date: 12/06/11 13:40:00, Stop date: 12/06/11 13:40:00 Benadryl No Garth P 25 mg, 0.5 Memoria 7-13 Nico mL, Route: l 18:39: IV, Drug form: INJ, ONCE, Start date: 12/06/11 13:39:00, Stop date: 12/06/11 13:39:00 Sodium 2011- No Garth P 2,000 mL, Mem oria Chloride 7-13 Nico Rate: x 1 l 0.9% IV 18:33: bolus, [place] 2,000 mL 00 Route: IV, Dosing Weight [...] or times, Stop date: 12/07/11 16:00:00 Reglan 2011- No Garth P 10 mg, 2 Bipin bernardo 7-13 Nico mL, Route: l 00:00: IVP, Drug [place] form: INJ, Q6H, Start date: 12/05/11 19:00:00, Duration: 30 day, Stop date: 01/04/12 18:00:00 dexamethaso No Michael S 4 mg, 1 Memoria ne 7-12 Minkowitz mL, Route: l 21:50: IVP, Drug Dre form: INJ, ONCE, PRN Nausea & Vomiting, Start date: 12/05/11 16:50:00 promethazin No Michael S 6.25 mg, Memoria e + Sodium 7-12 Minkowitz 0.25 mL, l Chloride 21:50: Route: [place] 0.9% IV 50 00 IVPB, mL ONCE, PRN Nausea & Vomiting, Start date: 12/05/11 16:50:00 midazolam No Michael S 2 mg, 2 M emoria 7-12 Minkowitz mL, Route: l 21:50: IVP, Drug [place] form: INJ, Q5Min, PRN Anxiety, Start date: 12/05/11 16:50:00, Duration: 2 doses or times, Stop date: Limited # of times hydromorpho No Michael S 0.5 mg, Memoria ne 7-12 Minkowitz 0.25 mL, l 21:50: Route: Dre 00 IVP, Drug form: INJ, [...] flumazenil No Gaston 0.2 mg, Memoria 7-12 Yoruba Route: l 21:50: IVP, PRN, PRN Benzodiaze pine Reversal, Initial dose, Start date: 12/05/11 16:50:00, Duration: 30 day, Stop date: 01/04/12 16:49:00 naloxone No Michael S 0.04 mg, M emoria 7-12 Minkowitz 0.1 mL, l 21:50: Route: IVP, Drug form: INJ, Q2MIN, PRN Narcotic Reversal, Start date: 12/05/11 16:50:00, Duration: 8 doses or times, Stop date: Limited # of times acetaminoph No Michael S 1,000 mg, Memoria en 10 mg/mL 7-12 Minkowitz 100 mL, l intravenous 21:50: Route: IV, [place] solution Drug form: INJ, ONCE, PRN Pain Score 4-6, Start date: 12/05/11 16:50:00, Duration: 1 doses or times, Stop date: Limited # of times, Infuse over 15 minutes (for patient weight 50 kg or greater)In fuse over 15 minutes (for patient weight 50 kg or greater) hydromorpho No Michael S 0.5 mg, Memoria ne 7-12 [place]owitz 0.25 mL, l 20:04: Route: Dre 00 IVP, Drug form: INJ, [...] 7-12 Minkowitz 0.1 mL, l 20:04: Route: [place] IVP, Drug form: INJ, Q2MIN, PRN Narcotic [...] 2011-0 No Garth P 133 mL, Memoria 7-12 Nico Route: [place], l 14:00: Drug Form: [place] 00 TYSON, ONCE, Start date: 12/05/11 9:00:00, Stop date: 12/05/11 9:00:00 Fleet Enema 2011-0 No Garth P 133 mL, Memoria 7-11 Nico Route: [place], l 19:00: Drug Form: [place] 00 TYSON, ONCE, Start date: 12/04/11 14:00:00, Stop date: 12/04/11 14:00:00 Citrate of No Garth P 300 mL, M emoria Magnesia 7-11 Nico Route: PO, l 19:00: Drug Form: [place] 00 LIQ, ONCE, Start date: 12/04/11 14:00:00, Stop date: 12/04/11 14:00:00 Ambien No Garth P 10 mg, 1 Bipin bernardo 7-11 Nico tab, l 02:00: Route: PO, Dre Drug form: TAB, Bedtime, Start date: 12/03/11 21:00:00, Duration: 30 day, Stop date: 01/01/12 21:00:00 Benadryl No Garth P 25 mg, 0.5 Memoria [...] 30 day, Stop date: 01/01/12 16:30:00 Floranex 2011- No Garth P 1 tab, Bipin bernardo 7-10 Nico Route: PO, l 18:00: Drug Form: [place] TAB, Q8H, Start date: 12/03/11 13:00:00, Duration: 30 day, Stop date: 01/02/12 5:00:00 hyoscyamine Yes 0.125 mg, M emoria 0.125 mg 7-10 1 tab, PO, l oral tablet 17:53: TID, PRN, H ermann 09 40 tab, as needed for spasm, Substituti on Allowed, TAB levothyroxi Yes 150 Memori a ne 150 mcg 7-10 microgram, l (0.15 mg) 17:52: 1 tab, PO, He rmann oral tablet 41 Daily, 30 tab, Substituti on Allowed, IN AM, TABIN AM divalproex Yes 750 mg, Bipin bernardo sodium 7-10 [...] Dre 02 on Allowed, TAB Zanaflex 2 0 Yes 2 mg, 1 Bipin bernardo mg oral 7-10 cap, PO, l capsule 17:50: TID, 180 Uday n 58 cap, Substituti on Allowed, CAP Phenergan Yes 50 mg, PO, Me moria 7-10 Q6H, l 17:50: Substituti Dre 39 on Allowed, TAB fentanyl 75 2011-0 [...] 7-10 Nico IntlUnit, l 16:55: 5 tab, [place] 00 Route: PO, Drug form: TAB, Daily, Start date: 12/03/11 11:55:00, Duration: 30 day, Stop date: 01/02/12 9:00:00 hydromorpho No Garth P 6 mg, 30 Memoria ne 6 mg 7-10 Nico mL, Route: l 16:54: IV, Drug [place] 00 Form: INJ, Start date: 12/03/11 11:54:00, [...] 4 day, Stop date: 12/07/11 11:52:00 Sodium No Garth P 25 mL, Memori a Chloride 7-10 Nico Route: IV, l 0.9% IV 16:52: Start [place] 00 date: 12/03/11 11:52:00, Duration: 30 day, Stop date: 01/02/12 11:51:00, PRN Line Flush BD Normal No Garth P 10 mL, Mem oria Saline 7-10 Nico Route: IV, l Flush 16:52: Drug Form: Uday n 00 INJ, PRN, PRN Line Flush, Start date: 12/03/11 11:52:00, Duration: 30 day, Stop date: 01/02/12 11:51:00 D5W 1/2NS + No Garth P 1,000 mL, Memoria KCL 20mEq/L 7-10 Nico Rate: 120 l 1000ml 16:52: ml/hr, [place] (Premix) 00 Infuse 1,000 mL over: 8.3 hr, Route: IV, Dosing Weight 74.545 kg, Total Volume: 1,000, Start date: 12/03/11 11:52:00, Duration: 30 day, Stop date: 01/02/12 11:51:00 Vital Signs Vital Name Observation Time Observation Value Comments Source Height/Length 2021-06-12 10:51:14 176 cm Measured Weight Dosing 2021-06-12 10:51:14 113.5 kg Height/Length 2021-06-12 10:50:45 176 cm Measured Weight Dosing 2021-06-12 10:50:45 113.5 kg Height/Length 2019-11-05 06:19:41 Measured Weight Dosing 2019-11-05 06:19:41 Systolic (mm Hg) 2021-06-06 15:33:00 Bipin rial Dre Diastolic (mm Hg) 2021-06-06 15:33:00 Mem orial [place] Heart Rate 2021-06-06 15:33:00 Memorial Dre Respitory Rate 2021-06-06 15:33:00 Memori al Dre Height 2021-06-06 15:33:00 170.18 cm [facility] [place] Weight 2021-06-06 15:33:00 [facility] Dre BMI Calculated 2021-06-06 15:33:00 Memori al Dre Temperature Oral (F) 2013-09-24 17:18:00 98.2 F [facility] [place] Heart Rate 2013-09-24 17:18:00 [facility] Dre Respitory Rate 2013-09-24 17:18:00 Memori al [place] Systolic (mm Hg) 2013-09-24 17:18:00 Bipin rial Dre Diastolic (mm Hg) 2013-09-24 17:18:00 Mem orial Dre Diastolic (mm Hg) 2013-09-24 12:20:00 Mem orial [place] Systolic (mm Hg) 2013-09-24 12:20:00 Bipin rial [place] Respitory Rate 2013-09-24 12:20:00 Memori al [place] Heart Rate 2013-09-24 12:20:00 [facility] Dre Temperature Oral (F) 2013-09-24 12:20:00 98.6 F [facility] Dre Heart Rate 2013-09-24 09:00:00 [facility] [place] Systolic (mm Hg) 2013-09-24 09:00:00 Bipin rial [place] Diastolic (mm Hg) 2013-09-24 09:00:00 Mem orial [place] Respitory Rate 2013-09-24 09:00:00 Memori al Dre Temperature Oral (F) 2013-09-24 09:00:00 98.1 F [facility] Dre Height 2013-09-13 19:05:00 175.26 cm [facility] [place] Weight 2013-09-13 19:05:00 [facility] [place] BMI Calculated 2013-09-13 19:05:00 Memori al Dre Heart Rate 2011-12-10 17:00:00 [facility] [place] Temperature Oral (F) 2011-12-10 17:00:00 98.4 F [facility] Diastolic (mm Hg) 2011-12-10 17:00:00 [facility] Systolic (mm Hg) 2011-12-10 17:00:00 Bipin rial [place] Respitory Rate 2011-12-10 17:00:00 [facility] Heart Rate 2011-12-10 13:00:00 [facility] [place] Temperature Oral (F) 2011-12-10 13:00:00 97.9 F [facility] [place] Systolic (mm Hg) 2011-12-10 13:00:00 Bipin rial Dre Respitory Rate 2011-12-10 13:00:00 [facility] Diastolic (mm Hg) 2011-12-10 13:00:00 Mem o[facility] [place] Systolic (mm Hg) 2011-12-10 10:10:00 Bipin rial [place] Diastolic (mm Hg) 2011-12-10 10:10:00 [facility] Heart Rate 2011-12-10 10:10:00 [facility] [place] Respitory Rate 2011-12-10 10:10:00 [facility] [place] Temperature Oral (F) 2011-12-10 10:10:00 98.0 F [facility] [place] Height 2011-12-03 16:29:00 172.72 cm [facility] Weight 2011-12-03 16:29:00 [facility] [place] Procedures Procedure Date / Time Performed Performing Clinician Sourc e Colon [facility] operation<sup>3</sup> Bariatric operative Dante wallace procedure<sup>1</sup> Partial hysterectomy [facility] Manny hernandez Appendectomy [facility] Dre Plan of Care Planned Activity Planned Date Details Comments Source Future Scheduled 2022-01-16 HEPATITIS B VACCINES Met [facility] Test 22:14:06 (1 of 3 - 3-dose series) [code = HEPATITIS B VACCINES (1 of 3 - 3-dose series)] Future Scheduled 2022-01-16 COVID-19 VACCINE (#1) [facility] Test 22:14:06 [code = COVID-19 VACCINE (#1)] Future Scheduled 2022-01-16 Hepatitis C screening [facility] Test 22:14:06 (procedure) [code = 400812396] Future Scheduled 2022-01-16 Screening for [facility] Test 22:14:06 malignant neoplasm of cervix (procedure) [code = 859754670] Future Scheduled 2022-01-16 BREAST CANCER [facility] Test 22:14:06 SCREENING [code = BREAST CANCER SCREENING] Future Scheduled 2022-01-16 COLONOSCOPY SCREENING [facility] Test 22:14:06 [code = COLONOSCOPY SCREENING] Future Scheduled 2022-01-16 SHINGLES VACCINES (1 Met [facility] Test 22:14:06 of 2) [code = SHINGLES VACCINES (1 of 2)] Future Scheduled 2022-01-16 INFLUENZA VACCINE Method [facility] Test 22:14:06 [code = INFLUENZA VACCINE] Encounters Start End Encounter Admission Attending Care Care Encounter Source Date/Time Date/Time Type Type Clinicians Facility Department ID 2019-10-28 Inpatient [facility] [id number] S t. 15:30:00 [facility] 2021-08-30 2021-08-31 Between nullFlavo MNA [id number] [facility] 14:51:16 14:51:16 Visit r Neurology 04 carlene Erickson 2021-08-30 2021-08-31 Outpatient MHMISCHER MHMISCHER [id number] 09:51:16 09:51:16 04 2021-07-18 2021-07-18 Ambulatory nullFlavo MNA [id number] [facility] 19:15:00 19:15:00 Pre-Reg r Neurology 02 l Venu Erickson 2021-07-18 2021-07-18 Outpatient MHIE MHIE [id number] [facility] 13:15:00 13:15:00 02 carlene Erickson 2021-07-18 2021-07-18 Outpatient PRANAY KrugerSCHER MHMISCHER [id number] 13:15:00 13:15:00 Robert 02 Baljit 2021-06-06 2021-06-07 Outpatient nullFlavo MNA [id number] [facility] 15:30:00 05:59:59 r Neurology 01 l Venu Erickson 2021-06-06 2021-06-06 Outpatient PRANAY KrugerSCHER MHMISCHER [id number] 09:30:00 23:59:59 Robert Baljit 2021-06-06 2021-06-06 Outpatient MHIE MHIE [id number] [facility] 09:30:00 09:30:00 01 carlene Erickson 2021-04-12 2021-04-12 Ambulatory nullFlavo MNA [id number] [facility] 22:00:00 22:00:00 Pre-Reg r Neurology 00 l [place] 2021-04-12 2021-04-12 Outpatient MHIE MHIE [id number] [facility] 16:00:00 16:00:00 00 carlene Erickson 2021-04-12 2021-04-12 Outpatient PRANAY KrugerSCHJOSE MHMISCHER [id number] 16:00:00 16:00:00 Robert 00 Baljit 2020-05-02 2020-05-02 Outpatient [facility] [id number] [place] 00:00:00 00:00:00 JAVAD 736 Method i 2020-03-21 2020-03-21 Outpatient [facility] [id number] [place] 00:00:00 00:00:[address] JAVAD [address] 2019-12-03 2019-12-03 Outpatient [facility] [id number] [place] 00:00:00 00:00:00 JAVAD [address] 2019-11-05 2019-11-05 Outpatient 3 [facility] [id number] 05:50:00 05:50:00 [id number] [facility] 2019-10-12 2019-10-12 Outpatient [facility] [id number] [place] 00:00:00 00:00:00 JAVAD [address] 2019-09-24 2019-09-24 [facility]patient [facility] [id number] [place] 00:00:00 00:00:00 JAVAD [address] 2013-09-13 2013-09-24 Inpatient [facility] [id number] [facility] 18:43:00 19:55:00 r [place] 02 l [facility] 2013-09-13 2013-09-24 Outpatient Nico [id number] 13:43:00 14:55:00 Garth P [id number] [id number] 2011-12-10 Inpatient [facility] [id number] [facility] 10:48:00 14:30:[address] Results Test Description Test Time Test Results Result Source Comments Comments XR Chest 1 View 2019-10-25 Patient: IVAN MENESES MRN: Frontal 2 [id number] 14:41:04 Date/Time11/05/2019 10:25 CDTReason for ExamLine placementReportLOCATION: [id number] VIEWINDICATION: Line placementCOMPARISON: None availableFINDINGS: Right subclavian accessed chest port tip is at the mid SVC. The lungs are clear and well inflated. No pleural effusion or pneumothorax. The cardiomediastinal silhouette is unremarkable. The bony thorax is intact.IMPRESSION:Right subclavian chest port tip at mid SVC. Final Dictated by: MD Nicolas, Mayra FDictated DT/TM: 11/05/2019 2:40 pmSigned by: MD Valenzuela Eniola FSigned (Electronic Signature): 11/05/2019 2:41 pm XR Fluoroscopy 2019-10-25 Patient: IVAN MENESES MRN: in Imaging per 2 [id number] Hour 10:29:38 Date/Time11/05/2019 09:10 CDTReason for ExamsurgeryReportLocation R 16EXAM- Intraoperative FluoroscopyINDICATION- surgeryFINDINGS- See Impression.IMPRESSION:1. Single fluoroscopic image demonstrates NG tube. 2 central lines are seen superimposing the SVC.2. FLUORO TIME- less than 1 min3. Number of fluoroscopic images: 1Please refer to performing physician's notes for full details of this procedure. Final Dictated by: MD Nicolas, Mayra FDictated DT/TM: 11/05/2019 10:23 amSigned by: MD Nicolas, Mayra FSigned (Electronic Signature): 11/05/2019 10:29 am CHEM PANEL 2013-09-23 09:50:00 Test Item Value Reference Range Interpretation Comme nts Magnesium Lvl (test code = Magnesium Lvl) 1.5 1.8-2.4 [facility]2014-05-01 09:50:00 Test Item Value Reference Range Interpretation Comments eGFR (test code = eGFR) 104 [facility]2014-05-01 09:50:00 Test Item Value Reference Range Interpretation Comments Chloride Lvl (test code = Chloride Lvl) 104 95-109 [facility]2014-05-01 09:50:00 Test Item Value Reference Range Interpretation Comments Potassium Lvl (test code = Potassium 4.2 3.5-5.1 Lvl) [facility]2014-05-01 09:50:00 Test Item Value Reference Range Interpretation Comments Calcium Lvl (test code = Calcium Lvl) 7.9 8.5-10.5 [facility]2014-05-01 09:50:00 Test Item Value Reference Range Interpretation Comments CO2 (test code = CO2) 27 24-32 [facility]2014-05-01 09:50:00 Test Item Value Reference Range Interpretation Comments Creatinine Lvl (test code = Creatinine 0.7 0.5-1.4 Lvl) [facility]2014-05-01 09:50:00 Test Item Value Reference Range Interpretation Comments BUN (test code = BUN) 6 7-22 [facility]2014-05-01 09:50:00 Test Item Value Reference Range Interpretation Comments Glucose Lvl (test code = Glucose Lvl) 71 70-99 [facility]2014-05-01 09:50:00 Test Item Value Reference Range Interpretation Comments Sodium Lvl (test code = Sodium Lvl) 139 135-145 [facility]2014-05-01 09:50:00 Test Item Value Reference Range Interpretation Comments AGAP (test code = AGAP) 12.2 10.0-20.0 [facility]UzxjthvNVMDEBKBFU2380-56-58 09:50:00 Test Item Value Reference Range Interpretation Comments Segs (test code = Segs) 60.8 45.0-75.0 [facility] CenterPlojxalKYARKIDTVP9317-58-16 09:50:00 Test Item Value Reference Range Interpretation Comments Segs-Bands # (test code = Segs-Bands #) 2.6 1.5-8.1 [facility] CenterJtywmafIZIIFJFLJY0336-61-03 09:50:00 Test Item Value Reference Range Interpretation Comments Basophils (test code = 0.5 See_Comment [Aut omated message] The Basophils) system which ge nerated this result tra nsmitted reference range : <=1.0. The reference r javier was not used to int erpret this result as normal/abnormal . [facility] CenterVvdkczqVLLYYIRCVH5472-96-88 09:50:00 Test Item Value Reference Range Interpretation Comments Eosinophils (test code = 3.6 See_Comment [A utomated message] The Eosinophils) system which ge nerated this result tra nsmitted reference range : <=4.0. The reference r javier was not used to int erpret this result as normal/abnormal . [facility] CenterLwnyljaAXXICOLLOW5733-23-79 09:50:00 Test Item Value Reference Range Interpretation Comments Monocytes (test code = Monocytes) 13.4 2.0-12.0 [facility] CenterKicirfgGMJVOOUYPG9778-78-12 09:50:00 Test Item Value Reference Range Interpretation Comments Lymphocytes (test code = Lymphocytes) 21.7 20.0-40.0 [facility] CenterTbbhpqfOEYPGYOMPK5513-81-71 09:50:00 Test Item Value Reference Range Interpretation Comments Eosinophils # (test code 0.2 See_Comment [A utomated message] The = Eosinophils #) system [facility] h generated this result tra nsmitted reference range : <=0.5. The reference r javier was not used to int erpret this result as normal/abnormal . [facility] CenterXutobmyBHLWXFTAUV8769-00-47 09:50:00 Test Item Value Reference Range Interpretation Comments Monocytes # (test code 0.6 See_Comment [Aut omated message] The = Monocytes #) system which generated this result tra nsmitted reference range : <=0.8. The reference r javier was not used to int erpret this result as normal/abnormal . [facility] CenterBhywoehEILJYFMRUN7401-06-51 09:50:00 Test Item Value Reference Range Interpretation Comments Lymphocytes # (test code = Lymphocytes 0.9 1.0-5.5 #) [facility] CenterRhuejktCJDCCVQIIR5989-66-40 09:50:00 Test Item Value Reference Range Interpretation Comments Hct (test code = Hct) 23.3 36.0-48.0 [facility] CenterVcqmaszSUKPIGLDSO5662-45-10 09:50:00 Test Item Value Reference Range Interpretation Comments MPV (test code = MPV) 8.0 7.4-10.4 [facility] CenterZtdxscfNXENICVDDC4020-08-22 09:50:00 Test Item Value Reference Range Interpretation Comments Platelet (test code = Platelet) 177 133-450 [facility] CenterVhzsuimVXRGFKRJBC4194-18-00 09:50:00 Test Item Value Reference Range Interpretation Comments RDW (test code = RDW) 16.1 11.5-14.5 [facility] CenterNgybhzbFORQKUCCBJ6150-18-66 09:50:00 Test Item Value Reference Range Interpretation Comments MCHC (test code = MCHC) 35.0 32.0-36.0 [facility] CenterNizuatuCUVOXMRNJP3657-14-32 09:50:00 Test Item Value Reference Range Interpretation Comments WBC (test code = WBC) 4.3 3.7-10.4 [facility] CenterKjfemjxPKAGGIDJVZ3728-69-39 09:50:00 Test Item Value Reference Range Interpretation Comments Hgb (test code = Hgb) 8.2 12.0-16.0 [facility] CenterUcaddqwFFBVBTOTTV8156-29-55 09:50:00 Test Item Value Reference Range Interpretation Comments RBC (test code = RBC) 2.66 4.20-5.40 [facility] CenterDfudqorOJVAKUZVDK2697-25-23 09:50:00 Test Item Value Reference Range Interpretation Comments MCH (test code = MCH) 30.6 pg 27.0-31.0 [facility] CenterIjilafaIOSMSBKJWH0776-13-53 09:50:00 Test Item Value Reference Range Interpretation Comments MCV (test code = MCV) 87.5 81.0-99.0 [facility]2014-04-30 09:30:00 Test Item Value Reference Range Interpretation Comments Phosphorus (test code = Phosphorus) 3.1 2.5-4.5 [facility]2014-04-30 09:30:00 Test Item Value Reference Range Interpretation Comments Magnesium Lvl (test code = Magnesium 1.3 1.8-2.4 Lvl) [facility]2014-04-30 09:30:00 Test Item Value Reference Range Interpretation Comments eGFR (test code = eGFR) 77 [facility]2014-04-30 09:30:00 Test Item Value Reference Range Interpretation Comments Creatinine Lvl (test code = Creatinine 0.9 0.5-1.4 Lvl) [facility]2014-04-30 09:30:00 Test Item Value Reference Range Interpretation Comments Glucose Lvl (test code = Glucose Lvl) 67 70-99 [facility]2014-04-30 09:30:00 Test Item Value Reference Range Interpretation Comments BUN (test code = BUN) 11 7-22 [facility]2014-04-30 09:30:00 Test Item Value Reference Range Interpretation Comments CO2 (test code = CO2) 26 24-32 [facility]2014-04-30 09:30:00 Test Item Value Reference Range Interpretation Comments AGAP (test code = AGAP) 12.1 10.0-20.0 [facility]2014-04-30 09:30:00 Test Item Value Reference Range Interpretation Comments Chloride Lvl (test code = Chloride Lvl) 104 95-109 [facility]2014-04-30 09:30:00 Test Item Value Reference Range Interpretation Comments Calcium Lvl (test code = Calcium Lvl) 7.8 8.5-10.5 [facility]2014-04-30 09:30:00 Test Item Value Reference Range Interpretation Comments Potassium Lvl (test code = Potassium 4.1 3.5-5.1 Lvl) [facility]2014-04-30 09:30:00 Test Item Value Reference Range Interpretation Comments Sodium Lvl (test code = Sodium Lvl) 138 135-145 [facility]GnjauddHLXQLLGXOK3601-20-66 09:30:00 Test Item Value Reference Range Interpretation Comments MCHC (test code = MCHC) 34.3 32.0-36.0 [facility] CenterTfslqgcRPBBJIIHWZ6082-92-23 09:30:00 Test Item Value Reference Range Interpretation Comments RDW (test code = RDW) 16.8 11.5-14.5 [facility] CenterLpgjbasMUTHXCMFSU4801-31-93 09:30:00 Test Item Value Reference Range Interpretation Comments MCV (test code = MCV) 88.6 81.0-99.0 [facility] CenterOoenaefTMUVOHVKIO9959-68-07 09:30:00 Test Item Value Reference Range Interpretation Comments RBC (test code = RBC) 2.80 4.20-5.40 [facility] CenterGydtwjhZMHTFOTOCU9482-21-41 09:30:00 Test Item Value Reference Range Interpretation Comments WBC (test code = WBC) 5.1 3.7-10.4 [facility] CenterXxddyuuJHMFCXQWRW9248-66-31 09:30:00 Test Item Value Reference Range Interpretation Comments Platelet (test code = Platelet) 166 133-450 [facility] CenterYznrasaSRBUOENFVP3743-83-41 09:30:00 Test Item Value Reference Range Interpretation Comments MCH (test code = MCH) 30.4 pg 27.0-31.0 [facility] CenterJdiaoewFDIGAQFGYZ4751-02-29 09:30:00 Test Item Value Reference Range Interpretation Comments Hgb (test code = Hgb) 8.5 12.0-16.0 [facility] CenterDoxnnhuFVJAWLTVPY6394-91-92 09:30:00 Test Item Value Reference Range Interpretation Comments Hct (test code = Hct) 24.8 36.0-48.0 [facility] CenterJfkucetSPQWFIJXDW6157-78-12 09:30:00 Test Item Value Reference Range Interpretation Comments MPV (test code = MPV) 8.1 7.4-10.4 [facility] CenterDvgktdxBHKSMBNBFW8748-10-14 09:30:00 Test Item Value Reference Range Interpretation Comments Basophils # (test code 0.0 See_Comment [Aut omated message] The = Basophils #) system which generated this result tra nsmitted reference range : <=0.2. The reference r javier was not used to int erpret this result as normal/abnormal . [facility] CenterNxczumbKZMGBMLQSO3371-43-08 09:30:00 Test Item Value Reference Range Interpretation Comments Eosinophils # (test code 0.1 See_Comment [A utomated message] The = Eosinophils #) system whic h generated this result tra nsmitted reference range : <=0.5. The reference r javier was not used to int erpret this result as normal/abnormal . [facility] CenterOxgdzsrKDGZZTMGZP9855-46-60 09:30:00 Test Item Value Reference Range Interpretation Comments Monocytes # (test code 0.6 See_Comment [Aut omated message] The = Monocytes #) system which generated this result tra nsmitted reference range : <=0.8. The reference r javier was not used to int erpret this result as normal/abnormal . [facility] CenterKoerihgYOGQUGXHVK3811-37-88 09:30:00 Test Item Value Reference Range Interpretation Comments Eosinophils (test code = 1.4 See_Comment [A utomated message] The Eosinophils) system which ge nerated this result tra nsmitted reference range : <=4.0. The reference r javier was not used to int erpret this result as normal/abnormal . [facility] CenterPddbkpkBHDNNARORD0031-59-45 09:30:00 Test Item Value Reference Range Interpretation Comments Lymphocytes # (test code = Lymphocytes 1.0 1.0-5.5 #) [facility] CenterLyciuvlMUEWOBDXSB5494-90-70 09:30:00 Test Item Value Reference Range Interpretation Comments Segs-Bands # (test code = Segs-Bands #) 3.3 1.5-8.1 [facility] CenterDcftuafWYBFHNKBNE4170-08-93 09:30:00 Test Item Value Reference Range Interpretation Comments Segs (test code = Segs) 65.3 45.0-75.0 [facility] CenterOkiqwslRFUORZRJYH4133-39-48 09:30:00 Test Item Value Reference Range Interpretation Comments Lymphocytes (test code = Lymphocytes) 20.6 20.0-40.0 [facility] CenterYwtyapuVJEDBEYLPX2905-40-97 09:30:00 Test Item Value Reference Range Interpretation Comments RBC Morph (test code = Normal (09/22/13 4:30 RBC Morph) AM) [facility] CenterGnfnsjmGWMTASBVUG3807-59-47 09:30:00 Test Item Value Reference Range Interpretation Comments Basophils (test code = 0.3 See_Comment [Aut omated message] The Basophils) system which ge nerated this result tra nsmitted reference range : <=1.0. The reference r javier was not used to int erpret this result as normal/abnormal . [facility] CenterLemsilwXSFBUAPCWR6547-78-41 09:30:00 Test Item Value Reference Range Interpretation Comments Plt Morph (test code = Normal (09/22/13 4:30 Plt Morph) AM) [facility] CenterWdvtiwqFCIXTZMAEE3128-22-28 09:30:00 Test Item Value Reference Range Interpretation Comments Monocytes (test code = Monocytes) 12.4 2.0-12.0 [facility]2014-04-29 10:00:00 Test Item Value Reference Range Interpretation Comments eGFR (test code = eGFR) 104 [facility]2014-04-29 10:00:00 Test Item Value Reference Range Interpretation Comments Creatinine Lvl (test code = Creatinine 0.7 0.5-1.4 Lvl) [facility]2014-04-29 10:00:00 Test Item Value Reference Range Interpretation Comments Sodium Lvl (test code = Sodium Lvl) 138 135-145 [facility]2014-04-29 10:00:00 Test Item Value Reference Range Interpretation Comments BUN (test code = BUN) 9 7-22 [facility]2014-04-29 10:00:00 Test Item Value Reference Range Interpretation Comments Potassium Lvl (test code = Potassium 4.5 3.5-5.1 Lvl) [facility]2014-04-29 10:00:00 Test Item Value Reference Range Interpretation Comments Chloride Lvl (test code = Chloride Lvl) 103 95-109 [facility]2014-04-29 10:00:00 Test Item Value Reference Range Interpretation Comments Calcium Lvl (test code = Calcium Lvl) 8.2 8.5-10.5 [facility]2014-04-29 10:00:00 Test Item Value Reference Range Interpretation Comments CO2 (test code = CO2) 25 24-32 [facility]2014-04-29 10:00:00 Test Item Value Reference Range Interpretation Comments Glucose Lvl (test code = Glucose Lvl) 88 70-99 [facility]2014-04-29 10:00:00 Test Item Value Reference Range Interpretation Comments AGAP (test code = AGAP) 14.5 10.0-20.0 [facility] CenterHrsedkaCGFDXGWJBG3905-05-16 10:00:00 Test Item Value Reference Range Interpretation Comments Polychrom (test code = Slight (09/21/13 5:00 Polychrom) AM) [facility] CenterDfynochHOSGQROBRL3569-44-07 10:00:00 Test Item Value Reference Range Interpretation Comments Eosinophils (test code = 0.1 See_Comment [A utomated message] The Eosinophils) system which ge nerated this result tra nsmitted reference range : <=4.0. The reference r javier was not used to int erpret this result as normal/abnormal . [facility] CenterQulbuxhILLQWCNFQG4092-23-62 10:00:00 Test Item Value Reference Range Interpretation Comments Segs-Bands # (test code = Segs-Bands #) 6.1 1.5-8.1 [facility] CenterWjqpoyjPXSXGEDWBT8729-12-06 10:00:00 Test Item Value Reference Range Interpretation Comments Basophils (test code = 0.0 See_Comment [Aut omated message] The Basophils) system which ge nerated this result tra nsmitted reference range : <=1.0. The reference r javier was not used to int erpret this result as normal/abnormal . [facility] CenterKhjhqdjBDYVDFZVKY9850-81-11 10:00:00 Test Item Value Reference Range Interpretation Comments Basophils # (test code 0.0 See_Comment [Aut omated message] The = Basophils #) system which generated this result tra nsmitted reference range : <=0.2. The reference r javier was not used to int erpret this result as normal/abnormal . [facility] CenterWmjxeexXQHDJFJNAR9693-76-68 10:00:00 Test Item Value Reference Range Interpretation Comments Eosinophils # (test code 0.0 See_Comment [A utomated message] The = Eosinophils #) system whic h generated this result tra nsmitted reference range : <=0.5. The reference r javier was not used to int erpret this result as normal/abnormal . [facility] CenterNznlwzbUOEZMOSNAT2968-91-22 10:00:00 Test Item Value Reference Range Interpretation Comments Hypochrom (test code = Slight (09/21/13 5:00 Hypochrom) AM) [facility] CenterFkhecapXGXFNCTLXS8697-90-60 10:00:00 Test Item Value Reference Range Interpretation Comments Lymphocytes # (test code = Lymphocytes 0.7 1.0-5.5 #) [facility] CenterMdprgtwWZRYXDZRMC8175-55-96 10:00:00 Test Item Value Reference Range Interpretation Comments Monocytes # (test code 0.6 See_Comment [Aut omated message] The = Monocytes #) system which generated this result tra nsmitted reference range : <=0.8. The reference r javier was not used to int erpret this result as normal/abnormal . [facility] CenterNndsqvaATNTQKJQVC4416-07-29 10:00:00 Test Item Value Reference Range Interpretation Comments Lymphocytes (test code = Lymphocytes) 9.3 20.0-40.0 [facility] CenterTnbbcsxLEVYXJUXTQ3651-05-07 10:00:00 Test Item Value Reference Range Interpretation Comments Monocytes (test code = Monocytes) 8.4 2.0-12.0 [facility] CenterZcjdmnrXDEBCMZNAZ4249-46-32 10:00:00 Test Item Value Reference Range Interpretation Comments Plt Morph (test code = Normal (09/21/13 5:00 Plt Morph) AM) [facility] CenterKptelyhCSOWNYPOAO7884-60-04 10:00:00 Test Item Value Reference Range Interpretation Comments Segs (test code = Segs) 82.2 45.0-75.0 [facility] CenterHwcujybJMKXZSOCEI7131-15-26 10:00:00 Test Item Value Reference Range Interpretation Comments RBC (test code = RBC) 3.01 4.20-5.40 [facility] CenterPxtttpjZLBVHZBCGQ7740-21-49 10:00:00 Test Item Value Reference Range Interpretation Comments WBC (test code = WBC) 7.4 3.7-10.4 [facility] CenterCclxsicMYHXSMDWLV2456-11-23 10:00:00 Test Item Value Reference Range Interpretation Comments MCH (test code = MCH) 29.5 pg 27.0-31.0 [facility] CenterKdztzrjKUBACIKTZQ6104-88-97 10:00:00 Test Item Value Reference Range Interpretation Comments Hgb (test code = Hgb) 8.9 12.0-16.0 [facility] CenterDsxqxfzUZJIBQEWNG7004-52-83 10:00:00 Test Item Value Reference Range Interpretation Comments MCV (test code = MCV) 88.1 81.0-99.0 [facility] CenterArdofhdOHPCNIEWAP2354-18-20 10:00:00 Test Item Value Reference Range Interpretation Comments Hct (test code = Hct) 26.5 36.0-48.0 [facility] CenterZqihvhfHNIAAEXCUY0698-03-95 10:00:00 Test Item Value Reference Range Interpretation Comments MCHC (test code = MCHC) 33.5 32.0-36.[address] [facility] CenterRrrmainHJTIFXTZZQ9853-18-79 10:00:00 Test Item Value Reference Range Interpretation Comments Platelet (test code = Platelet) 204 133-450 [facility] DrrhcptIKMCSCQSMT9086-57-75 10:00:00 Test Item Value Reference Range Interpretation Comments RDW (test code = RDW) 16.6 11.5-14.5 [facility] CenterEwdgwnfDWLHTZVRQX8451-78-92 10:00:00 Test Item Value Reference Range Interpretation Comments MPV (test code = MPV) 8.4 7.4-10.4 [facility] [employer] [id number] 19:10:00 Test Item Value Reference Range Interpretation Comments ABO/Rh (test code = ABO/Rh) B NEG [facility]7 [employer] [id number] 19:10:00 Test Item Value Reference Range Interpretation Comments Antibody Scrn (test Negative (09/20/13 2:10 code = Antibody Scrn) PM) [facility] CenterCoolIT Systems [id number] 10:10:00 Test Item Value Reference Range Interpretation Comments AST (test code = AST) 9 See_Comment [Auto mated message] The system which ge nerated this result transmit max reference range : <=37. The reference range was not used to interpr et this result as luis l/abnormal. [facility] [id number] 10:10:00 Test Item Value Reference Range Interpretation Comments Albumin Lvl (test code = Albumin Lvl) 2.7 3.5-5.0 [facility] [id number] 10:10:00 Test Item Value Reference Range Interpretation Comments Total Protein (test code = Total 5.1 6.4-8.4 Protein) [facility] [id number] 10:10:00 Test Item Value Reference Range Interpretation Comments Alk Phos (test code = Alk Phos) 63 39-[address] [facility] CenterCoolIT Systems [id number] 10:10:00 Test Item Value Reference Range Interpretation Comments ALT (test code = ALT) 11 See_Comment [Auto mated message] The system which ge nerated this result transmit max reference range : <=65. The reference range was not used to interpr et this result as luis l/abnormal. [facility]2014-04-27 10:10:00 Test Item Value Reference Range Interpretation Comments Bili Total (test code = Bili Total) 0.7 0.2-1.3 [facility]2014-04-27 10:10:00 Test Item Value Reference Range Interpretation Comments B/C Ratio (test code = B/C Ratio) 9 6-25 [facility]2014-04-27 10:10:00 Test Item Value Reference Range Interpretation Comments Globulin (test code = Globulin) 2.4 2.0-4.0 [facility]2014-04-27 10:10:00 Test Item Value Reference Range Interpretation Comments A/G Ratio (test code = A/G Ratio) 1.1 0.7-1.6 [facility] [id number] 10:10:00 Test Item Value Reference Range Interpretation Comments Basophils # (test code 0.0 See_Comment [Aut omated message] The = Basophils #) system which generated this result tra nsmitted reference range : <=0.2. The reference r javier was not used to int erpret this result as normal/abnormal . [facility]2014-04-23 10:00:00 Test Item Value Reference Range Interpretation Comments AST (test code = AST) 10 See_Comment [Auto mated message] The system which ge nerated this result transmit max reference range : <=37. The reference range was not used to interpr et this result as luis l/abnormal. [facility]2014-04-23 10:00:00 Test Item Value Reference Range Interpretation Comments ALT (test code = ALT) 10 See_Comment [Auto mated message] The system which ge nerated this result transmit max reference range : <=65. The reference range was not used to interpr et this result as luis l/abnormal. [facility]2014-04-23 10:00:00 Test Item Value Reference Range Interpretation Comments Albumin Lvl (test code = Albumin Lvl) 2.6 3.5-5.0 [facility]2014-04-23 10:00:00 Test Item Value Reference Range Interpretation Comments Alk Phos (test code = Alk Phos) 58 39-136 [facility]2014-04-23 10:00:00 Test Item Value Reference Range Interpretation Comments Bili Total (test code = Bili Total) 0.5 0.2-1.[address] [facility] [address] CenterCoolIT Systems [id number] 10:00:00 Test Item Value Reference Range Interpretation Comments Total Protein (test code = Total 4.8 6.4-8.4 Protein) [facility]2014-04-23 10:00:00 Test Item Value Reference Range Interpretation Comments A/G Ratio (test code = A/G Ratio) 1.2 0.7-1.6 [facility]2014-04-23 10:00:00 Test Item Value Reference Range Interpretation Comments Globulin (test code = Globulin) 2.2 2.0-4.[address] [facility] [address] CenterCool[facility] Systems [id number] 10:00:00 Test Item Value Reference Range Interpretation Comments B/C Ratio (test code = B/C Ratio) 7 6-25 [facility]2014-04-23 10:00:00 Test Item Value Reference Range Interpretation Comments Phosphorus (test code = Phosphorus) 3.8 2.5-4.[address] [facility] [address] [facility] CenterCool[facility] [id number] 10:00:00 Test Item Value Reference Range Interpretation Comments Magnesium Lvl (test code = Magnesium 1.5 1.8-2.4 Lvl) [facility] [id number] 09:30:00 Test Item Value Reference Range Interpretation Comments Elliptocyte (test code = Slight *ABN*(09/14/13 Elliptocyte) 4:30 AM) [facility] CenterIzhqclwUAOSJSJVTY6856-20-14 09:30:00 Test Item Value Reference Range Interpretation Comments Hypochrom (test code = Slight (09/14/13 4:30 Hypochrom) AM) [facility] CenterIboirdrWIZTSXPBDD8967-73-97 09:30:00 Test Item Value Reference Range Interpretation Comments Plt Morph (test code = Normal (09/14/13 4:30 Plt Morph) AM) [facility]Game[facility] [id number] 00:30:00 Test Item Value Reference Range Interpretation Comments ABO/Rh (test code = ABO/Rh) B NEG [facility] [employer] [id number] 00:30:00 Test Item Value Reference Range Interpretation Comments Antibody Scrn (test Negative (09/13/13 7:30 code = Antibody Scrn) PM) [facility] AND [id number] 20:40:40 Test Item Value Reference Range Interpretation Comments UA Urobilinogen (test code = UA <=1.0 mg/dL 0.1-1.0 Urobilinogen) [facility] AND [id number] 20:40:40 Test Item Value Reference Range Interpretation Comments UA Ketones (test code = UA Ketones) TR [facility] AND [id number] 20:40:40 Test Item Value Reference Range Interpretation Comments UA Bacteria (test code = UA Occasional /HPF Bacteria) [facility] AND [id number] 20:40:40 Test Item Value Reference Range Interpretation Comments UA Mucus (test code = UA Mucus) Many /LPF [facility] AND [id number] 20:40:40 Test Item Value Reference Range Interpretation Comments UA RBC (test code = 7 See_Comment [Automa max message] The UA RBC) system which ge nerated this result transmit max reference range : <=2. The reference range was not used to interpr et this result as luis l/abnormal. [facility] AND [id number] 20:40:40 Test Item Value Reference Range Interpretation Comments UA WBC (test code = 8 See_Comment [Automa max message] The UA WBC) system which ge nerated this result transmit max reference range : <=5. The reference range was not used to interpr et this result as luis l/abnormal. [facility] AND [id number] 20:40:40 Test Item Value Reference Range Interpretation Comments UA Glucose (test code = UA Negative mg/dL Glucose) [facility] AND [id number] 20:40:40 Test Item Value Reference Range Interpretation Comments UA Bili (test code = Negative *NA*(09/13/13 UA Bili) 3:40 PM) [facility] AND [id number] 20:40:40 Test Item Value Reference Range Interpretation Comments UA pH (test code = UA pH) 6.0 5.0-8.0 [facility] AND [id number] 20:40:40 Test Item Value Reference Range Interpretation Comments UA Leuk Est (test code Small *ABN*(09/13/13 = UA Leuk Est) 3:40 PM) [facility] [id number] 20:40:40 Test Item Value Reference Range Interpretation Comments UA Sq Epi (test code = UA Sq Moderate /LPF Epi) [facility] [id number] 20:40:40 Test Item Value Reference Range Interpretation Comments UA Protein (test code = UA Protein) 30 mg/dL [facility] [id number] 20:40:40 Test Item Value Reference Range Interpretation Comments UA Blood (test code = Negative (09/13/13 3:40 UA Blood) PM) [facility] [id number] 20:40:40 Test Item Value Reference Range Interpretation Comments UA Nitrite (test code Negative (09/13/13 3:40 = UA Nitrite) PM) [facility] [id number] 20:40:40 Test Item Value Reference Range Interpretation Comments UA Color (test code = Yellow *NA*(09/13/13 UA Color) 3:40 PM) [facility] [id number] 20:40:40 Test Item Value Reference Range Interpretation Comments UA Spec Grav (test code = UA Spec Grav) 1.019 [facility] [id number] 20:40:40 Test Item Value Reference Range Interpretation Comments UA Turbidity (test code Slight *ABN*(09/13/13 = UA Turbidity) 3:40 PM) [facility] [id number] 20:40:18 Test Item Value Reference Range Interpretation Comments CDC HIV 4th GEN (test Negative (09/13/13 3:40 code = CDC HIV 4th PM) GEN) [facility] [id number] 20:40:00 Test Item Value Reference Range Interpretation Comments Lipase Lvl (test code = Lipase Lvl) 123 73-393 [facility]CHE[facility] [id number] 20:40:00 Test Item Value Reference Range Interpretation Comments A/G Ratio (test code = A/G Ratio) 1.2 0.7-1.6 [facility]annCHE[facility] [id number] 20:40:00 Test Item Value Reference Range Interpretation Comments Globulin (test code = Globulin) 2.5 2.0-4.0 [facility] [id number] 20:40:00 Test Item Value Reference Range Interpretation Comments B/C Ratio (test code = B/C Ratio) 9 6-25 [facility] [id number] 20:40:00 Test Item Value Reference Range Interpretation Comments AST (test code = AST) 10 See_Comment [Auto mated message] The system which ge nerated this result transmit max reference range : <=37. The reference range was not used to interpr et this result as luis l/abnormal. [facility]2014-04-21 20:40:00 Test Item Value Reference Range Interpretation Comments Total Protein (test code = Total 5.6 6.4-8.4 Protein) [facility]2014-04-21 20:40:00 Test Item Value Reference Range Interpretation Comments ALT (test code = ALT) 10 See_Comment [Auto mated message] The system which ge nerated this result transmit max reference range : <=65. The reference range was not used to interpr et this result as luis l/abnormal. [facility]2014-04-21 20:40:00 Test Item Value Reference Range Interpretation Comments Albumin Lvl (test code = Albumin Lvl) 3.1 3.5-5.0 [facility]2014-04-21 20:40:00 Test Item Value Reference Range Interpretation Comments Alk Phos (test code = Alk Phos) 66 39-136 [facility]2014-04-21 20:40:00 Test Item Value Reference Range Interpretation Comments Bili Total (test code = Bili Total) 0.4 0.2-1.3 [facility] Cent[id number] 20:40:00 Test Item Value Reference Range Interpretation Comments PTT (test code = PTT) 34.7 s 22.9-35.8 [facility] CenterZdtzpynDKCFHUCSMY8236-15-34 20:40:00 Test Item Value Reference Range Interpretation Comments PT (test code = PT) 12.8 s 12.0-14.7 [facility] CenterElszrwaGGGWGKWXRD9907-69-89 20:40:00 Test Item Value Reference Range Interpretation Comments INR (test code = INR) 0.97 0.85-1.17 [facility] AND [id number] 19:20:00 Test Item Value Reference Range Interpretation Comments Occult Bld Stl (test Negative (09/13/13 2:20 code = Occult Bld Stl) PM) [facility] CenterTpciugrYRPWPOOJSW0814-91-78 09:50:00 Test Item Value Reference Range Interpretation Comments Eosinophils # (test code 0.1 See_Comment N [A utomated message] The = Eosinophils #) system whic h generated this result tra nsmitted reference range : <=0.5. The reference r javier was not used to int erpret this result as normal/abnormal . [facility] CenterHempeyvUASZCXIQEW1681-28-96 09:50:00 Test Item Value Reference Range Interpretation Comments Segs-Bands # (test code = Segs-Bands #) 3.8 1.5-8.1 N [facility] CenterLbzudtdTMMJMOXMBI9190-97-67 09:50:00 Test Item Value Reference Range Interpretation Comments Lymphocytes # (test code = Lymphocytes 1.3 1.0-5.5 N #) [facility] CenterDprashuXNVJEAKYYX0693-78-77 09:50:00 Test Item Value Reference Range Interpretation Comments Monocytes # (test code 0.5 See_Comment N [Aut omated message] The = Monocytes #) system which generated this result tra nsmitted reference range : <=0.8. The reference r javier was not used to int erpret this result as normal/abnormal . [facility] CenterIwhvkxkMMCMZFIESX1707-37-26 09:50:00 Test Item Value Reference Range Interpretation Comments Segs (test code = Segs) 66.3 45.0-75.0 N [facility] CenterQfwcidgIRYHFMAKJJ7734-02-44 09:50:00 Test Item Value Reference Range Interpretation Comments Monocytes (test code = Monocytes) 9.5 2.0-12.0 N [facility] CenterGvnxmtzBKOTAEEAOI7665-60-54 09:50:00 Test Item Value Reference Range Interpretation Comments Lymphocytes (test code = Lymphocytes) 22.1 20.0-40.0 N [facility] CenterObhxojvNTSUNFYIXN0613-26-10 09:50:00 Test Item Value Reference Range Interpretation Comments Basophils (test code = 0.2 See_Comment N [Aut omated message] The Basophils) system which ge nerated this result tra nsmitted reference range : <=1.0. The reference r javier was not used to int erpret this result as normal/abnormal . [facility] CenterJkolliuJXZTDDMCFP3547-24-21 09:50:00 Test Item Value Reference Range Interpretation Comments Eosinophils (test code = 1.9 See_Comment N [A utomated message] The Eosinophils) system which ge nerated this result tra nsmitted reference range : <=4.0. The reference r javier was not used to int erpret this result as normal/abnormal . [facility] CenterGtlnkuiTSHGMLVPNQ3390-68-51 09:50:00 Test Item Value Reference Range Interpretation Comments MCV (test code = MCV) 88.9 81.0-99.0 N [facility] CenterDcuxlxeWNTCEHWQIH9442-10-69 09:50:00 Test Item Value Reference Range Interpretation Comments RDW (test code = RDW) 15.3 11.5-14.5 H [facility] CenterNttjfngNYBNKDIXON4335-64-73 09:50:00 Test Item Value Reference Range Interpretation Comments MCHC (test code = MCHC) 34.1 32.0-36.0 N [facility] CenterQigidatQHRCJOYRPB9372-59-83 09:50:00 Test Item Value Reference Range Interpretation Comments Platelet (test code = Platelet) 161 133-450 N [facility] CenterZoteusxINOCSBLHFF5962-49-27 09:50:00 Test Item Value Reference Range Interpretation Comments MPV (test code = MPV) 7.9 7.4-10.4 N [facility] CenterZtdbvxyOPEDONCLPI8977-70-70 09:50:00 Test Item Value Reference Range Interpretation Comments MCH (test code = MCH) 30.3 pg 27.0-31.0 N [facility] CenterAfdkqewKIGHFZSJLR5761-29-45 09:50:00 Test Item Value Reference Range Interpretation Comments Hct (test code = Hct) 30.0 36.0-48.0 L [facility] CenterPmviiaqVTAUAZQLSQ4833-08-84 09:50:00 Test Item Value Reference Range Interpretation Comments WBC (test code = WBC) 5.8 3.7-10.4 N [facility] CenterIdrqlafSBKUMUBRAK1142-40-09 09:50:00 Test Item Value Reference Range Interpretation Comments Hgb (test code = Hgb) 10.2 12.0-16.0 L [facility] CenterJwwxrzoZAVYJJBRUT9566-93-39 09:50:00 Test Item Value Reference Range Interpretation Comments RBC (test code = RBC) 3.38 4.20-5.[address] [facility] [id number] 17:54:00 Test Item Value Reference Range Interpretation Comments RBC product (test code Product available N = RBC product) (12/08/2011 12:54:00) [facility] BANK [id number] 15:10:00 Test Item Value Reference Range Interpretation Comments Antibody Scrn (test Negative (12/08/2011 N code = Antibody Scrn) 10:10:00) [facility] BANK [id number] 15:10:00 Test Item Value Reference Range Interpretation Comments ABO/Rh (test code = ABO/Rh) B NEG [facility] CenterImnluwlXKMETVPKWH1744-48-72 10:00:00 Test Item Value Reference Range Interpretation Comments Lymphocytes (test code = Lymphocytes) 8.0 20.0-40.0 L [facility] CenterNcptxwsOTVRIAGPVE1781-65-90 10:00:00 Test Item Value Reference Range Interpretation Comments Bands (test code = 12.0 See_Comment H [Automat ed message] The Bands) system which ge nerated this result transmit max reference range : <=11.0. The reference r javier was not used to interpr et this result as luis l/abnormal. [facility] CenterJuduiusPZVAUXOEYC4554-88-24 10:00:00 Test Item Value Reference Range Interpretation Comments Plt Morph (test code = Normal (12/08/2011 N Plt Morph) 05:00:00) [facility] CenterEixdtchYLBSUOPEIN5374-57-43 10:00:00 Test Item Value Reference Range Interpretation Comments Atypical Lymphs (test code = Atypical 0.0 N Lymphs) [facility] CenterSktzfwoAKSKJKUFDC4413-32-11 10:00:00 Test Item Value Reference Range Interpretation Comments Monocytes (test code = Monocytes) 4.0 2.0-12.0 N [facility] CenterWowfeejLNEKFOXPBW2026-47-92 10:00:00 Test Item Value Reference Range Interpretation Comments Elliptocyte (test code = Slight A Elliptocyte) *ABN*(12/08/2011 05:00:00) [facility] CenterEzjebxmOGPSQMUDFF4621-27-83 10:00:00 Test Item Value Reference Range Interpretation Comments Toxic Gran (test code Slight *ABN*(12/08/2011 A = Toxic Gran) 05:00:00) [facility] CenterIsmkshfSHZYRDKVOR8057-34-09 10:00:00 Test Item Value Reference Range Interpretation Comments Polychrom (test code = Slight (12/08/2011 N Polychrom) 05:00:00) [facility] CenterIigbrpePIOPWTLBSD3131-33-74 10:00:00 Test Item Value Reference Range Interpretation Comments Segs (test code = Segs) 76.0 45.0-75.0 H [facility] CenterJmkcbqwRLQFWUYBJW2491-97-92 10:00:00 Test Item Value Reference Range Interpretation Comments Segs-Bands # (test code = Segs-Bands #) 7.3 1.5-8.1 N [facility] CenterNhaswhhJRVRYWUXSY1917-55-57 10:00:00 Test Item Value Reference Range Interpretation Comments Monocytes # (test code 0.3 See_Comment N [Aut omated message] The = Monocytes #) system which generated this result tra nsmitted reference range : <=0.8. The reference r javier was not used to int erpret this result as normal/abnormal . [facility] CenterLxpbbiaRLMQPEIJDC3084-31-11 10:00:00 Test Item Value Reference Range Interpretation Comments Lymphocytes # (test code = Lymphocytes 0.7 1.0-5.5 L #) [facility] CenterMuqvxoiPVPGVLLRKG1060-04-78 10:00:00 Test Item Value Reference Range Interpretation Comments RBC (test code = RBC) 2.91 4.20-5.40 L [facility] CenterBkiabthSMTQBIWJFC8806-18-15 10:00:00 Test Item Value Reference Range Interpretation Comments WBC (test code = WBC) 8.3 3.7-10.4 N [facility] CenterQzknqizRHTDLKNHBR2829-21-26 10:00:00 Test Item Value Reference Range Interpretation Comments MCH (test code = MCH) 30.3 pg 27.0-31.0 N [facility] CenterBnvdopeVHMPJKDBTG6778-63-97 10:00:00 Test Item Value Reference Range Interpretation Comments MCV (test code = MCV) 89.3 81.0-99.0 N [facility] CenterNriffhfMJJYOPGHWD5949-74-27 10:00:00 Test Item Value Reference Range Interpretation Comments MCHC (test code = MCHC) 33.9 32.0-36.0 N [facility] CenterSedrfkqJSXSIWOGLM8420-66-33 10:00:00 Test Item Value Reference Range Interpretation Comments Hct (test code = Hct) 26.0 36.0-48.0 L [facility] CenterWdpzrfyANLQMSJFFJ3651-25-34 10:00:00 Test Item Value Reference Range Interpretation Comments Hgb (test code = Hgb) 8.8 12.0-16.0 L [facility] CenterAlpjsmlONGWHMWVSO5252-40-68 10:00:00 Test Item Value Reference Range Interpretation Comments Platelet (test code = Platelet) 195 133-450 N [facility] CenterXvaqmadTMFPKIKTVF9490-29-09 10:00:00 Test Item Value Reference Range Interpretation Comments MPV (test code = MPV) 7.7 7.4-10.4 N [facility] CenterIddrcfhUPAEFKLOKH0212-34-76 10:00:00 Test Item Value Reference Range Interpretation Comments RDW (test code = RDW) 15.8 11.5-14.[address] [facility] HospitalUwqofrhYJVEXVAWL7224-53-87 14:33:00 Test Item Value Reference Range Interpretation Comments Phosphorus (test code = Phosphorus) 2.2 2.5-4.[address] [facility] HospitalPvlfelyPUWOZXEMF9359-29-41 14:33:00 Test Item Value Reference Range Interpretation Comments Potassium Lvl (test code = Potassium 4.0 3.5-5.1 N Lvl) [facility] HospitalCcmdxrfQWASTRADP2889-53-70 14:33:00 Test Item Value Reference Range Interpretation Comments Sodium Lvl (test code = Sodium Lvl) 143 135-[address] [facility] [facility] HospitalLwnvthxSAPUKOXAV0841-34-44 14:33:00 Test Item Value Reference Range Interpretation Comments Chloride Lvl (test code = Chloride Lvl) 110 95-[address] [facility] HospitalZrreiqrRFEUMUOAD0715-66-96 14:33:00 Test Item Value Reference Range Interpretation Comments CO2 (test code = CO2) 22 24-[address] [facility] HospitalLnnqziuTREWDEQBQ0834-83-68 14:33:00 Test Item Value Reference Range Interpretation Comments Calcium Lvl (test code = Calcium Lvl) 7.6 8.5-10.[address] [facility] HospitalOmfiliuDSUFUIATD7021-48-41 14:33:00 Test Item Value Reference Range Interpretation Comments Creatinine Lvl (test code = Creatinine 1.0 0.5-1.4 N Lvl) [facility] HospitalZunfmpbTXUJIFYSJ5887-54-60 14:33:00 Test Item Value Reference Range Interpretation Comments BUN (test code = BUN) 16 7-[address] [facility] HospitalSrixrvuADEFETOPV3540-47-33 14:33:00 Test Item Value Reference Range Interpretation Comments Glucose Lvl (test code = Glucose Lvl) 115 70-[address] [facility] HospitalFtzsjccJTJFKKVIF8470-29-90 14:33:00 Test Item Value Reference Range Interpretation Comments AGAP (test code = AGAP) 15.0 10.0-20.[address] [facility] HospitalVxfqcvpWKXGSWZOO6165-04-55 14:33:00 Test Item Value Reference Range Interpretation Comments Magnesium Lvl (test code = Magnesium 1.3 1.8-2.4 L Lvl) [facility] CenterYrbxgidKJGDJPEDIY6342-47-02 14:33:00 Test Item Value Reference Range Interpretation Comments Tot Cell Ct (test code = Tot Cell Ct) 100 1 [facility] CenterSsmhmweTGNMBUAIWT0663-80-40 14:33:00 Test Item Value Reference Range Interpretation Comments Plt Morph (test code = Normal (12/07/2011 N Plt Morph) 09:33:00) [facility] CenterWpifnrbRLILPFTNQS9804-16-81 14:33:00 Test Item Value Reference Range Interpretation Comments Atypical Lymphs (test code = Atypical 0.0 N Lymphs) [facility] CenterYpuzwjzUYASMEGLDA1759-78-29 14:33:00 Test Item Value Reference Range Interpretation Comments Metamyelocytes (test code 1.0 See_Comment N [ Automated message] = Metamyelocytes) The system which generated this result transmitted ref erence range: <=1.0. T he reference range was not used to int erpret this result as normal/abnormal . [facility]JtdlzoxQXPZTGWQGP4433-22-82 14:33:00 Test Item Value Reference Range Interpretation Comments Monocytes (test code = Monocytes) 8.0 2.0-12.0 N [facility] CenterBnkqvwlQSECDLIQJR6588-86-22 14:33:00 Test Item Value Reference Range Interpretation Comments Lymphocytes (test code = Lymphocytes) 17.0 20.0-40.0 L [facility] CenterUhwphtsPQYYNIQPSF5558-96-14 14:33:00 Test Item Value Reference Range Interpretation Comments Segs (test code = Segs) 34.0 45.0-75.0 L [facility] CenterWsekwsgMQFRSZFPCD2587-20-66 14:33:00 Test Item Value Reference Range Interpretation Comments Bands (test code = 40.0 See_Comment H [Automat ed message] The Bands) system which ge nerated this result transmit max reference range : <=11.0. The reference r javier was not used to interpr et this result as luis l/abnormal. [facility] CenterMxkfeytCODFQSBKMY3691-48-33 14:33:00 Test Item Value Reference Range Interpretation Comments RBC Morph (test code = Normal (12/07/2011 N RBC Morph) 09:33:00) [facility] CenterUjrlzwyTZJZCUNGLT7729-46-22 14:33:00 Test Item Value Reference Range Interpretation Comments Monocytes # (test code 0.8 See_Comment N [Aut omated message] The = Monocytes #) system which generated this result tra nsmitted reference range : <=0.8. The reference r javier was not used to int erpret this result as normal/abnormal . [facility] CenterJlvrlabVHZWMKQHCZ1544-19-95 14:33:00 Test Item Value Reference Range Interpretation Comments Segs-Bands # (test code = Segs-Bands #) 7.2 1.5-8.1 N [facility] CenterPbqieekBQRZCUINUG2398-65-27 14:33:00 Test Item Value Reference Range Interpretation Comments Lymphocytes # (test code = Lymphocytes 1.6 1.0-5.5 N #) [facility] CenterOhlmcobZDPOFKXZJI7919-97-99 14:33:00 Test Item Value Reference Range Interpretation Comments RDW (test code = RDW) 15.8 11.5-14.5 H [facility] CenterPmzmzmsXUBKISFIDE0263-53-55 14:33:00 Test Item Value Reference Range Interpretation Comments Hct (test code = Hct) 25.2 36.0-48.0 L [facility] CenterCukbdmyYRURKSXNAX1033-00-50 14:33:00 Test Item Value Reference Range Interpretation Comments Hgb (test code = Hgb) 8.3 12.0-16.0 L [facility] CenterErwnkwjBGPQDNTIKB2133-58-70 14:33:00 Test Item Value Reference Range Interpretation Comments MCV (test code = MCV) 88.5 81.0-99.0 N [facility] CenterIvgbfhqCRFFYZEZHY7375-20-74 14:33:00 Test Item Value Reference Range Interpretation Comments MCHC (test code = MCHC) 32.8 32.0-36.0 N [facility] CenterRwvbhscQQJPNDZCAE2089-41-15 14:33:00 Test Item Value Reference Range Interpretation Comments MCH (test code = MCH) 29.0 pg 27.0-31.0 N [facility] CenterCbnyyrhSKWDYVVDOF0947-21-85 14:33:00 Test Item Value Reference Range Interpretation Comments Platelet (test code = Platelet) 165 133-450 N [facility] CenterUffooldZXWSOEOVSH8687-54-06 14:33:00 Test Item Value Reference Range Interpretation Comments MPV (test code = MPV) 7.6 7.4-10.4 N [facility] CenterTxbykfrERQEHRWZQX9964-94-93 14:33:00 Test Item Value Reference Range Interpretation Comments RBC (test code = RBC) 2.85 4.20-5.40 L [facility] CenterCdtjavgTFEPJSQRUO2594-23-54 14:33:00 Test Item Value Reference Range Interpretation Comments WBC (test code = WBC) 9.7 3.7-10.4 N [facility]inteUhrfumxTecyicpnvdru8082-60-23 22:45:00 Test Item Value Reference Range Interpretation Comments Culture: Blood (test code = Culture: Blood) [facility] PointeScglymoKyrwegrcsufu5575-54-79 22:30:00 Test Item Value Reference Range Interpretation Comments Culture: Blood (test code = Culture: Blood) [facility]CnkokwlBJHPCTJPTR1509-12-03 22:15:00 Test Item Value Reference Range Interpretation Comments UA Bili (test code = Negative *NA*(12/06/2011 UA Bili) 17:15:00) [facility] CentralYvdmzkzTDGFWQBCFR7139-40-80 22:15:00 Test Item Value Reference Range Interpretation Comments UA Nitrite (test code Negative (12/06/2011 N = UA Nitrite) 17:15:00) [facility] CentralWmvdzvpTHYZNRNHXP7811-04-54 22:15:00 Test Item Value Reference Range Interpretation Comments UA WBC (test code = 3 See_Comment N [Automa max message] The UA WBC) system which ge nerated this result transmit max reference range : <=5. The reference range was not used to interpr et this result as luis l/abnormal. [facility] CentralBplbgwxMKDHABHMZR2419-69-85 22:15:00 Test Item Value Reference Range Interpretation Comments UA Mucus (test code = Many /LPF A UA Mucus) *ABN*(12/06/2011 17:15:00) [facility] CentralTfkheggXHLTYGUXPA5221-80-77 22:15:00 Test Item Value Reference Range Interpretation Comments UA Leuk Est (test Negative (12/06/2011 N code = UA Leuk Est) 17:15:00) [facility] CentralZlwohxjNBZJENGPGT6594-57-24 22:15:00 Test Item Value Reference Range Interpretation Comments UA Sq Epi (test code Occasional /LPF = UA Sq Epi) *NA*(12/06/2011 17:15:00) [facility]IhoahnvBCWRGHYSTN8646-15-00 22:15:00 Test Item Value Reference Range Interpretation Comments UA Blood (test code = Negative (12/06/2011 N UA Blood) 17:15:00) [facility] CentralJfakhtnMTFJELDLSS1273-80-44 22:15:00 Test Item Value Reference Range Interpretation Comments UA Urobilinogen (test code *NA*(12/06/2011 0.1-1.0 = UA Urobilinogen) 17:15:00) [facility]wayOiervybHSHKKPXQHX1140-94-61 22:15:00 Test Item Value Reference Range Interpretation Comments UA Protein (test code = 20 mg/dL A UA Protein) *ABN*(12/06/2011 17:15:00) [facility] CentralEruumsiUSMRRHDJQC9488-78-96 22:15:00 Test Item Value Reference Range Interpretation Comments UA Ketones (test code Negative mg/dL = UA Ketones) *NA*(12/06/2011 17:15:00) [facility] CentralVwozgksFTVKNWVNDJ2758-24-70 22:15:00 Test Item Value Reference Range Interpretation Comments UA Glucose (test code Negative mg/dL = UA Glucose) *NA*(12/06/2011 17:15:00) [facility] CentralHjxorlmBGLCXOQDHG7305-76-96 22:15:00 Test Item Value Reference Range Interpretation Comments UA Turbidity (test code = Clear (12/06/2011 N UA Turbidity) 17:15:00) [facility] CentralJoqrlunGBQJVNSFYC3327-51-87 22:15:00 Test Item Value Reference Range Interpretation Comments UA Color (test code = Yellow *NA*(12/06/2011 UA Color) 17:15:00) [facility] CentralWzhxlcvNXVBXIVEVT4888-18-60 22:15:00 Test Item Value Reference Range Interpretation Comments UA pH (test code = UA pH) 5.5 5.0-8.0 N [facility] CentralCtisxkgDQNPXKWQTS7626-66-73 22:15:00 Test Item Value Reference Range Interpretation Comments UA Spec Grav (test code = UA Spec Grav) 1.[address] [facility] CenterPsthnqmBHFSGKITO8100-00-73 09:20:00 Test Item Value Reference Range Interpretation Comments BUN (test code = BUN) 5 7-[address] [facility] HospitalUyyalyqFQAZYYIAL1720-80-32 09:20:00 Test Item Value Reference Range Interpretation Comments Creatinine Lvl (test code = Creatinine 0.8 0.5-1.4 N Lvl) [facility] HospitalUcpmgvdRUKXSSDSL1869-49-68 09:20:00 Test Item Value Reference Range Interpretation Comments Glucose Lvl (test code = Glucose Lvl) 108 70-[address] [facility] HospitalYnjuqcaOCSDZPRBG8235-14-80 09:20:00 Test Item Value Reference Range Interpretation Comments Calcium Lvl (test code = Calcium Lvl) 8.0 8.5-10.[address] [facility] HospitalEpjcoawXUJBIDJDT0890-65-75 09:20:00 Test Item Value Reference Range Interpretation Comments Chloride Lvl (test code = Chloride Lvl) 107 95-[address] [facility] HospitalLrfmzidJFGMUYOLM6215-09-11 09:20:00 Test Item Value Reference Range Interpretation Comments CO2 (test code = CO2) 25 24-[address] [facility] [facility] HospitalFoenaazPVYHPSKQO2012-62-28 09:20:00 Test Item Value Reference Range Interpretation Comments Sodium Lvl (test code = Sodium Lvl) 142 135-[address] [facility] [facility] HospitalFlcydahMCWSZHVRP5952-46-03 09:20:00 Test Item Value Reference Range Interpretation Comments Potassium Lvl (test code = Potassium 4.0 3.5-5.1 N Lvl) [facility] HospitalQxbahcaBOWBJWGLI3090-67-45 09:20:00 Test Item Value Reference Range Interpretation Comments AGAP (test code = AGAP) 14.0 10.0-20.0 N [facility] CenterBtdetrmCURINMDWCQ5593-79-68 09:20:00 Test Item Value Reference Range Interpretation Comments Eosinophils # (test code 0.1 See_Comment N [A utomated message] The = Eosinophils #) system whic h generated this result tra nsmitted reference range : <=0.5. The reference r javier was not used to int erpret this result as normal/abnormal . [facility] CenterUdwmmovMEMVWCSQCE2567-57-82 09:20:00 Test Item Value Reference Range Interpretation Comments Basophils # (test code 0.0 See_Comment N [Aut omated message] The = Basophils #) system which generated this result tra nsmitted reference range : <=0.2. The reference r javier was not used to int erpret this result as normal/abnormal . [facility] CenterGoxrgsqZMXTCULEEE1702-83-10 09:20:00 Test Item Value Reference Range Interpretation Comments Basophils (test code = 0.1 See_Comment N [Aut omated message] The Basophils) system which ge nerated this result tra nsmitted reference range : <=1.0. The reference r javier was not used to int erpret this result as normal/abnormal . [facility] CenterUrkjrkfSNTRVTYVHS7209-80-57 09:20:00 Test Item Value Reference Range Interpretation Comments Eosinophils (test code = 1.0 See_Comment N [A utomated message] The Eosinophils) system which ge nerated this result tra nsmitted reference range : <=4.0. The reference r javier was not used to int erpret this result as normal/abnormal . [facility] HospitalLqlnjmsHWJCORWUZ8116-45-67 18:20:00 Test Item Value Reference Range Interpretation Comments Hgb A1C (test code = Hgb A1C) 5.8 [facility] HospitalJknicqjCAQSQTTXJ6094-01-17 18:20:00 Test Item Value Reference Range Interpretation Comments Selenium Lvl (test code = Selenium Lvl) 130 [facility] HospitalDtemvbrHDZQRIBZI1059-92-43 18:20:00 Test Item Value Reference Range Interpretation Comments PTH Intact (test code = PTH Intact) 227.6 11.1-79.[address] [facility] HospitalWkeltfhRIPMTJPCT7311-26-15 18:20:00 Test Item Value Reference Range Interpretation Comments CHD Risk (test code = CHD Risk) 3.27 3.90-5.[address] [facility] HospitalQwmbqfrPTXTSKVTL2799-37-26 18:20:00 Test Item Value Reference Range Interpretation Comments LDL (test code = LDL) 128 See_Comment N [Auto mated message] The system which ge nerated this result transmit max reference range : <=129. The reference range was not used to interpr et this result as luis l/abnormal. [facility] HospitalKvqmlfwYKJHQYRBR5433-07-81 18:20:00 Test Item Value Reference Range Interpretation Comments Chol (test code = Chol) 203 120-[address] [facility] [facility] HospitalXudxgiqYIUKIYAUJ4377-21-12 18:20:00 Test Item Value Reference Range Interpretation Comments HDL (test code = HDL) [address] [facility] HospitalTgtyluaFHOFRHYZK5372-21-99 18:20:00 Test Item Value Reference Range Interpretation Comments Trig (test code = 64 See_Comment N [Automate d message] The Trig) system which ge nerated this result transmit max reference range : <=200. The reference range was not used to interpr et this result as luis l/abnormal. [facility] HospitalKuqqzyrLJVVFONNL2055-43-57 18:20:00 Test Item Value Reference Range Interpretation Comments TIBC (test code = TIBC) 412 228-[address] [facility] [facility] HospitalSaqobkcBSNGDHDNY5441-80-69 18:20:00 Test Item Value Reference Range Interpretation Comments Iron (test code = Iron) 138 30-[address] [facility] [facility] HospitalXzmkksuQYMGDUTNF5179-73-51 18:20:00 Test Item Value Reference Range Interpretation Comments % Satur Fe (test code = % Satur Fe) 33 12-[address] [facility] [facility] HospitalMmecgpsFDQYIKOJF9168-02-96 18:20:00 Test Item Value Reference Range Interpretation Comments UIBC (test code = UIBC) 274 110-[address] [facility] HospitalAwfaprwFABXMGPSL8764-37-91 18:20:00 Test Item Value Reference Range Interpretation Comments T4 (test code = T4) 6.3 4.7-13.[address] [facility] HospitalUpcbzpuZVSUFULYH7332-50-30 18:20:00 Test Item Value Reference Range Interpretation Comments TSH (test code = TSH) 1.600 0.360-3.[address] [facility] HospitalRubazkrXYJVPEBAB4651-51-72 18:20:00 Test Item Value Reference Range Interpretation Comments Vitamin D2 25-OH (test code = Vitamin no gt D2 25-OH) [facility] HospitalDlrsqjlDPJSUCURW4515-68-43 18:20:00 Test Item Value Reference Range Interpretation Comments Vitamin D3 25-OH (test code = Vitamin 13 D3 25-OH) [facility] HospitalUyghcxeTHAAESAGK1124-23-15 18:20:00 Test Item Value Reference Range Interpretation Comments Vitamin D, 25-OH, Total (test code = 13 30-100 L Vitamin D, 25-OH, Total) [facility] HospitalFvtxpouVHZFBGSAY5429-43-59 18:20:00 Test Item Value Reference Range Interpretation Comments Vitamin A (test code = Vitamin A) 41 38-98 [facility] HospitalDuymfvnUYDLDGPVM2160-76-53 18:20:00 Test Item Value Reference Range Interpretation Comments Folate Lvl (test code = Folate Lvl) 19.[address] [facility] HospitalBsckkibPPACNHBGE3968-14-46 18:20:00 Test Item Value Reference Range Interpretation Comments Vitamin B1 (test code = Vitamin B1) 122 87-280 [facility] HospitalPmvwguhEEFICSPPE7837-91-00 18:20:00 Test Item Value Reference Range Interpretation Comments Copper Lvl (test code = Copper Lvl) 121 70-175 [facility] HospitalIaqotfqSLJIFTISW0891-71-95 18:20:00 Test Item Value Reference Range Interpretation Comments Vitamin B12 Lvl (test code = Vitamin 591 211-911 N B12 Lvl) [facility] HospitalHnthfxiZRMGAXLQX1943-96-94 18:20:00 Test Item Value Reference Range Interpretation Comments Phosphorus (test code = Phosphorus) 3.6 2.5-4.[address] [facility] HospitalXacrvacRDKJQZQFR6577-26-14 18:20:00 Test Item Value Reference Range Interpretation Comments Magnesium Lvl (test code = Magnesium 1.9 1.8-2.4 N Lvl) [facility] HospitalAobvmcgYGLMKQHAA3038-07-55 18:20:00 Test Item Value Reference Range Interpretation Comments Globulin (test code = Globulin) 2.8 2.0-4.[address] [facility] HospitalSaucpmrWCBSAOAWL6976-94-11 18:20:00 Test Item Value Reference Range Interpretation Comments A/G Ratio (test code = A/G Ratio) 1.2 0.7-1.[address] [facility] HospitalDrcjwozKHRJTYNOG4742-41-49 18:20:00 Test Item Value Reference Range Interpretation Comments AGAP (test code = AGAP) 12.2 10.0-20.[address] [facility] HospitalHycqbraNYJKUTRJA5682-71-10 18:20:00 Test Item Value Reference Range Interpretation Comments B/C Ratio (test code = B/C Ratio) 14 6-[address] [facility] HospitalZqltnlgRTRKGVRDK4428-79-67 18:20:00 Test Item Value Reference Range Interpretation Comments Bili Total (test code = Bili Total) 0.3 0.2-1.[address] [facility] HospitalBjaffovTDCRYCVLL5364-17-61 18:20:00 Test Item Value Reference Range Interpretation Comments AST (test code = AST) 7 See_Comment N [Auto mated message] The system which ge nerated this result transmit max reference range : <=37. The reference range was not used to interpr et this result as luis l/abnormal. [facility] HospitalAgrhfzjIBYBGMYRD6526-87-67 18:20:00 Test Item Value Reference Range Interpretation Comments Albumin Lvl (test code = Albumin Lvl) 3.5 3.5-5.[address] [facility] HospitalXxkhmouBLTOULPSC2402-19-89 18:20:00 Test Item Value Reference Range Interpretation Comments ALT (test code = ALT) 7 See_Comment N [Auto mated message] The system which ge nerated this result transmit max reference range : <=65. The reference range was not used to interpr et this result as luis l/abnormal. [facility] HospitalKnllbhhCHNECFKGY0040-80-84 18:20:00 Test Item Value Reference Range Interpretation Comments Alk Phos (test code = Alk Phos) 54 39-[address] [facility] HospitalTdrgofdVZFUYRTMO6910-77-22 18:20:00 Test Item Value Reference Range Interpretation Comments Total Protein (test code = Total 6.3 6.4-8.4 L Protein) [facility] HospitalWrregjiTXRRLIODC1083-89-69 18:20:00 Test Item Value Reference Range Interpretation Comments CO2 (test code = CO2) 26 24-[address] [facility] [facility] HospitalUjooufqQBLTLPNFR8489-06-70 18:20:00 Test Item Value Reference Range Interpretation Comments Calcium Lvl (test code = Calcium Lvl) 8.7 8.5-10.[address] [facility] HospitalWioboonRKRJRLTLK2110-14-24 18:20:00 Test Item Value Reference Range Interpretation Comments Sodium Lvl (test code = Sodium Lvl) 139 135-[address] [facility] [facility] HospitalEwecgsqRLKTYXEJK0363-98-26 18:20:00 Test Item Value Reference Range Interpretation Comments Potassium Lvl (test code = Potassium 4.2 3.5-5.1 N Lvl) [facility] HospitalNgjacooLOZUBLKHF0131-52-56 18:20:00 Test Item Value Reference Range Interpretation Comments Chloride Lvl (test code = Chloride Lvl) 105 95-[address] [facility] HospitalSmcwzhoVVBGELYUM2573-05-45 18:20:00 Test Item Value Reference Range Interpretation Comments Glucose Lvl (test code = Glucose Lvl) 111 70-[address] [facility] HospitalZwzksoxUFROKNDIH6690-92-49 18:20:00 Test Item Value Reference Range Interpretation Comments BUN (test code = BUN) 11 7-[address] [facility] HospitalTcnknutVKNIQYECU7945-43-00 18:20:00 Test Item Value Reference Range Interpretation Comments Creatinine Lvl (test code = Creatinine 0.8 0.5-1.4 N Lvl) [facility] CenterTtvwfgpSYOIOBHRKK9077-51-70 18:20:00 Test Item Value Reference Range Interpretation Comments Eosinophils (test code = 0.7 See_Comment N [A utomated message] The Eosinophils) system which ge nerated this result tra nsmitted reference range : <=4.0. The reference r javier was not used to int erpret this result as normal/abnormal . [facility] CenterMsdoxdaCHQUBWICXC8941-72-19 18:20:00 Test Item Value Reference Range Interpretation Comments Basophils (test code = 0.1 See_Comment N [Aut omated message] The Basophils) system which ge nerated this result tra nsmitted reference range : <=1.0. The reference r javier was not used to int erpret this result as normal/abnormal . [facility] CenterVjmjkdrBBIRCAULVL3971-40-30 18:20:00 Test Item Value Reference Range Interpretation Comments Eosinophils # (test code 0.0 See_Comment N [A utomated message] The = Eosinophils #) system wh h generated this result tra nsmitted reference range : <=0.5. The reference r javier was not used to int erpret this result as normal/abnormal . [facility] CenterSdhslawPROVALRBCI5748-12-08 18:20:00 Test Item Value Reference Range Interpretation Comments Basophils # (test code 0.0 See_Comment N [Aut omated message] The = Basophils #) system which generated this result tra nsmitted reference range : <=0.2. The reference r javier was not used to int erpret this result as normal/abnormal . [facility] CenterNxwfdyqDWUQEASKEI2587-46-98 18:20:00 Test Item Value Reference Range Interpretation Comments INR (test code = INR) 0.92 0.85-1.17 N [facility] CenterMfoojdeCZKJBBZYLK3467-08-65 18:20:00 Test Item Value Reference Range Interpretation Comments PT (test code = PT) 12.4 s 12.0-14.[address] CenterMurfgpsOXEDALIFUS6431-75-52 18:20:00 Test Item Value Reference Range Interpretation Comments Prealbumin (test code = Prealbumin) 19.9 18.0-45.[address] [facility]
--- NOTE | 2022-01-19 07:44 | RAD REPORT ---
EXAM DESCRIPTION: RAD - Ankle Left 3 View - 01/19/2022 6:28 am CLINICAL HISTORY: PAIN COMPARISON: Ankle Left 3 View dated 03/24/2020 FINDINGS/IMPRESSION: No acute fracture. No malalignment. No significant focal degenerative changes.
--- NOTE | 2022-01-19 07:44 | RAD REPORT ---
EXAM DESCRIPTION: RAD - Knee Left 3 View - 01/19/2022 6:28 am CLINICAL HISTORY: PAIN COMPARISON: Knee Left 3 view dated 11/08/2012 FINDINGS: No acute fracture. No malalignment. No significant focal degenerative changes. IMPRESSION: No acute osseous abnormality involving the left knee.
--- NOTE | 2022-01-19 07:50 | ER ---
Nurse's Notes [facility] Name: Maribel Soto Age: 56 yrs Sex: Female : 1965 Arrival Date: 01/19/2022 Time: 05:20 Bed 15 Private MD: Diagnosis: Pain in left knee;Pain in left ankle and joints of left foot;Elevated blood-pressure reading, without diagnosis of hypertension Presentation: 01/19 05:38 Chief complaint: Patient states: Was getting grocery's out of car around 1 PM yesterday ll3 when got dizzy and fell, states "everything went sideways and I heard a popping sound", c/o left knee and ankle pain 10/10. Coronavirus screen: Vaccine status: Patient reports being unvaccinated. At this time, the client does not indicate any symptoms associated with coronavirus-19. Ebola Screen: No symptoms or risks identified at this time. Initial Sepsis Screen: Does the patient meet any 2 criteria? No. Patient's initial sepsis screen is negative. Does the patient have a suspected source of infection? No. Patient's initial sepsis screen is negative. Risk Assessment: Do you want to hurt yourself or someone else? Patient reports no desire to harm self or others. Onset of symptoms was January 18, 2022 at 13:00. 05:38 Method Of Arrival: Wheelchair ll3 05:38 Acuity: LILIAN 3 ll3 Triage Assessment: 05:42 General: Appears uncomfortable, Behavior is calm, cooperative. Pain: Complains of pain ll3 in Left knee and ankle Pain does not radiate. Pain currently is 10 out of 10 on a pain scale. Quality of pain is described as sharp, Pain began 1 day ago. Is continuous, Alleviated by rest, Aggravated by increased activity, weight bearing. Neuro: Level of Consciousness is awake, alert, obeys commands, Oriented to person, place, time, situation. Respiratory: Respiratory effort is even, unlabored, Respiratory pattern is regular, symmetrical. Musculoskeletal: Circulation, motion, and sensation intact. Reports pain in left leg since 1300. Pain is 10 out of 10 on a pain scale. Injury Description: Pt states she fell yesterday after getting dizzy, c/o L knee and ankle pain 10/10. 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 - Social history:: Smoking status: Patient denies any tobacco usage or history of. Screenin:42 Abuse screen: Denies threats or abuse. Nutritional screening: No deficits noted. ja4 Tuberculosis screening: No symptoms or risk factors identified. Fall Risk Ambulatory Aid- Crutches/Cane/Walker (15 pts). Gait- Impaired (20 pts.). Assessment: 05:42 General: Appears uncomfortable, Behavior is calm, cooperative, appropriate for age. ja4 Pain: Complains of pain in left lateral ankle and anterior aspect of left ankle Pain currently is 9 out of 10 on a pain scale. Quality of pain is described as aching, Pain began 1 day ago. Musculoskeletal: Tenderness Reports. 07:15 Reassessment: Patient appears in no apparent distress at this time. Patient and/or jg9 family updated on plan of care and expected duration. Pain level reassessed. Patient is alert, oriented x 3, equal unlabored respirations, skin warm/dry/pink. Vital Signs: 05:38 BP 153 / 81; Pulse 95; Resp 18; Temp 98.7(O); Pulse Ox 100% on R/A; Weight 113.4 kg ll3 (R); Height 5 ft. 9 in. (175.26 cm) (R); Pain 10/10; 07:15 BP 121 / 88; Pulse 76; Resp 17 S; Pulse Ox 96% ; jg9 05:38 Body Mass Index 36.92 (113.40 kg, 175.26 cm) ll3 ED Course: 05:20 Patient arrived in ED. ja2 05:23 Rich Reyes DO is Attending Physician. ms3 05:29 Maverick Woodson, JAYDEN is Primary Nurse. ja4 05:42 Triage completed. ll3 05:42 Arm band placed on Patient placed in an exam room, on a stretcher, on pulse oximetry. ll3 05:42 Patient has correct armband on for positive identification. Bed in low position. Call ja4 light in reach. 05:42 No provider procedures requiring assistance completed. ja4 06:30 Knee Left 3 View XRAY In Process Unspecified. EDMS 06:30 Ankle Left 3 View XRAY In Process Unspecified. EDMS 07:48 Marcelino Arguello MD is Referral Physician. ms3 08:14 Patient did not have IV access during this emergency room visit. jg9 Administered Medications: No medications were administered Medication: 05:42 VIS not applicable for this client. ja4 Outcome: 07:49 Discharge ordered by . ms3 08:13 Discharged to home via wheelchair. jg9 08:13 Condition: stable 08:13 Discharge instructions given to patient, Instructed on discharge instructions, follow up and referral plans. Demonstrated understanding of instructions, follow-up care, crutch walking, knee immobilizer use 08:14 Patient left the ED. jg9 Signatures: Dispatcher [employer] EDMS Rich Reyes DO DO ms3 Nga Feldman ja2 Luci Resendez, RN RN ll3 Chyna Rubio RN RN jg9 Maverick Woodson RN RN ja4
--- NOTE | 2022-01-19 07:50 | EDPHYS ---
Physician Documentation [facility] Name: Maribel Soto Age: 56 yrs Sex: Female : 1965 Arrival Date: 01/19/2022 Time: 05:20 Bed 15 Private MD: ED Physician Rich Reyes HPI: 01/19 05:39 This 56 yrs old Female presents to ER via Unassigned with complaints of Leg Injury. ms3 05:39 The patient presents with pain, that is acute. The complaints affect the left knee, ms3 left ankle. Context: The problem was sustained resulted from a mis-step, the patient is not able to bear weight, the patient is not able to ambulate. Onset: The symptoms/episode began/occurred acutely, yesterday. Modifying factors: The symptoms are alleviated by nothing. the symptoms are aggravated by nothing. Associated signs and symptoms: The patient has no apparent associated signs or symptoms. Treatment prior to arrival includes: 4mg Hydromorphone. Severity of symptoms: At their worst the symptoms were severe, in the emergency department the symptoms are unchanged. Patient states yesterday while walking she became off balance and her left leg went laterally and she heard a pop in her knee and ankle.. 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 - Social history:: Smoking status: Patient denies any tobacco usage or history of. ROS: 05:39 Constitutional: Negative for fever, and chills. Neck: Negative for injury, pain, and ms3 swelling, Cardiovascular: Negative for chest pain, and palpitations. Respiratory: Negative for shortness of breath, cough, wheezing, and pleuritic chest pain, Abdomen/GI: Negative for abdominal pain, nausea, vomiting, diarrhea, and constipation, MS/Extremity: Negative for injury and deformity, Skin: Negative for injury, rash, and discoloration, Psych: Negative for depression, anxiety, suicide ideation, homicidal ideation, and hallucinations. 05:39 All other systems are negative. Exam: 05:39 Constitutional: This is a well developed, well nourished patient who is awake, alert, ms3 and in no acute distress. Head/Face: Normocephalic, atraumatic. Neck: Trachea midline, no cervical lymphadenopathy. Supple, full range of motion without nuchal rigidity, or vertebral point tenderness. No Meningismus. Chest/axilla: Normal chest wall appearance and motion. Nontender with no deformity. Cardiovascular: Regular rate and rhythm with a normal S1 and S2. No gallops, murmurs, or rubs. Normal PMI, no JVD. No pulse deficits. Respiratory: Lungs have equal breath sounds bilaterally, clear to auscultation and percussion. No rales, rhonchi or wheezes noted. No increased work of breathing, no retractions or nasal flaring. Abdomen/GI: Soft, non-tender, with normal bowel sounds. No distension or tympany. No guarding or rebound. No evidence of tenderness throughout. Skin: Warm, dry with normal turgor. Normal color with no rashes, no lesions, and no evidence of cellulitis. 05:39 Musculoskeletal/extremity: Extremities: noted in the left knee: pain, swelling, tenderness, noted in the left ankle: pain, swelling, tenderness. Vital Signs: 05:38 BP 153 / 81; Pulse 95; Resp 18; Temp 98.7(O); Pulse Ox 100% on R/A; Weight 113.4 kg ll3 (R); Height 5 ft. 9 in. (175.26 cm) (R); Pain 10/10; 07:15 BP 121 / 88; Pulse 76; Resp 17 S; Pulse Ox 96% ; jg9 05:38 Body Mass Index 36.92 (113.40 kg, 175.26 cm) ll3 MDM: 05:38 Patient medically screened. ms3 05:39 Differential diagnosis: closed fracture, contusion, sprain/ strain. ms3 07:50 Data reviewed: vital signs, nurses notes, radiologic studies, and as a result, I will ms3 discharge patient. Counseling: I had a detailed discussion with the patient and/or guardian regarding: the historical points, exam findings, and any diagnostic results supporting the discharge/admit diagnosis, radiology results, the need for outpatient follow up, to return to the emergency department if symptoms worsen or persist or if there are any questions or concerns that arise at home. Special discussion: I discussed with the patient/guardian in detail that at this point there is no indication for admission to the hospital. It is understood, however, that if the symptoms persist or worsen the patient needs to return immediately for re-evaluation. ED course: No signs of compartment syndrome present. Patient to follow up with Dr. Arguello in 2 to 3 days. Patient stands agrees plan. All questions were answered. Return precautions discussed include worsening symptoms, or any other concerns.. 01/19 05:37 Order name: Knee Left 3 View XRAY; Complete Time: 07:50 ms3 01/19 05:37 Order name: Ankle Left 3 View XRAY; Complete Time: 07:50 ms3 01/19 07:50 Order name: Knee Immobilizer; Complete Time: 08:02 ms3 01/19 08:14 Order name: Crutches; Complete Time: 08:14 jg9 Administered Medications: No medications were administered Disposition Summary: 01/19/22 07:49 Discharge Ordered Location: Home ms3 Condition: Stable ms3 Diagnosis - Pain in left knee ms3 - Pain in left ankle and joints of left foot ms3 - Elevated blood-pressure reading, without diagnosis of hypertension ms3 Followup: ms3 - With: Marcelino Arguello MD - When: 2 - 3 days - Reason: Recheck today's complaints Discharge Instructions: - Discharge Summary Sheet ms3 - How to Use a Knee Brace ms3 - Musculoskeletal Pain ms3 - Acute Knee Pain, Adult ms3 - How to Use Cold Therapy, [id number] ms3 Forms: - Medication Reconciliation Form ms3 - Thank You Letter ms3 - Antibiotic Education ms3 - Prescription Opioid Use ms3 Signatures: Dispatcher [employer] EDMS Rich Reyes DO DO ms3 Luci Resendez RN RN ll3 Chyna Rubio RN RN jg9
[2022-01-19 08:38] VITALS: BP 153/81; TEMP 98.7; O2SAT 100
== END 2022-01-19 08:14 | disposition home or self-care (01) ==
LOC: ER 05:15
DX: M25.562 Pain in left knee (principal); M25.572 Pain in left ankle and joints of left foot; R03.0 Elevated blood-pressure reading, without diagnosis of hypertension; Z88.0 Allergy status to penicillin; Z88.1 Allergy status to other antibiotic agents; Z88.8 Allergy status to other drugs, medicaments and biological substances
CPT/HCPCS: 99283

== ENCOUNTER 2022-09-30 17:42 | Emergency (ER) | payer OTHER ==
--- OUTSIDE RECORDS SUMMARY | 2022-09-30 17:52 | XMS REPORT | Continuity of Care Document ---
:1965 Author Organization [facility] t Address [address] [facility] [address] [place] [address] Care Team Providers Name Role Phone Juliana Carver MD Primary Care Physician [phone] Robert Kruger Attending Clinician JAVAD HOUSTON Attending [...] GASTRITIS 00:00: Herm hernandez Active 00 09/13/2013 [facility] VOMITING, VOMITING, Diagnosis Active 2013-09-13 Memoria WEAKNESS WEAKNESS 09-13 14:41:00 l Active 00:00: Dre 09/13/2013 00 [facility] ABDOMINAL ABDOMINAL Diagnosis Active 2011-12-04 Memoria PAIN,VOMIT PAIN,VOMIT 12-02 12:49:00 l ING ING Active 00:00: Uday n 12/03/2011 00 [facility] Anxiety Anxiety Problem Active 2022-07-06 Me moria (finding) (finding) 23:42:30 l Active Dre Problem 07/06/2022 [facility] Diabetes Diabetes Problem Active 2022-07-06 Memoria mellitus mellitus 23:42:30 l (disorder) (disorder) He rmann Active Problem 07/06/2022 [facility] Problem Active 2022-07-06 Memoria sis esis 23:42:30 l (disorder) (disorder) He ann Active Problem 07/06/2022 [facility] Hand pain Hand pain Problem Active 2022-07-06 Memoria (finding) (finding) 23:42:30 l Active Dre Problem 07/06/2022 [facility] Headache Headache Problem Active 2022-07-06 Memoria (finding) (finding) 23:42:30 l Active [place] Problem 07/06/2022 [facility] Hypothyroi Hypothyro Problem Active 2022-07-06 Memoria dism idism 23:42:30 l (disorder) (disorder) He ann Active Problem 07/06/2022 [facility] Insomnia Insomnia Problem Active 2022-07-06 Memoria (disorder) (disorder) 23:42:30 l Active [place] Problem 07/06/2022 [facility] Irritable Irritable Problem Active 2022-07-06 Memoria colon colon 23:42:30 l (disorder) (disorder) He ann Active Problem 07/06/2022 [facility] Lupus Lupus Problem Active 2022-07-06 Memor ia erythemato erythemato 23:42:30 l chace chace [place] (disorder) (disorder) Active Problem 07/06/2022 [facility] Migraine Migraine Problem Active 2022-07-06 Memoria without without 23:42:30 l aura aura Dre (disorder) (disorder) Active Problem 07/06/2022 [facility] Pain Pain Problem Active 2022-07-06 Memor ia (finding) (finding) 23:42:30 l Active [place] Problem 07/06/2022 [facility] Seizure Seizure Problem Active 2022-07-06 Me moria (finding) (finding) 23:42:30 l Active [place] Problem 07/06/2022 [facility] Weakness Weakness Problem Active 2022-07-06 Memoria of hand of hand 23:42:30 l (finding) (finding) Herm hernandez Active Problem 07/06/2022 [facility] Anemia Anemia Problem Resolve 2021-09-02 Mem oria (disorder) (disorder) d 21:39:08 l Resolved Dre Problem 09/02/2021 [facility] Asthma Asthma Problem Resolve 2021-09-02 Me moria (disorder) (disorder) d 21:39:08 l Resolved Dre Problem 09/02/2021 [facility] Chronic Chronic Problem Resolve 2021-09-02 M emoria fatigue fatigue d 21:39:08 l syndrome syndrome Uday n (disorder) (disorder) Resolved Problem 09/02/2021 [facility] Diverticul Diverticu Problem Resolve 2021-09-02 Memoria ar disease lar d 21:39:08 l (disorder) disease Vani nn (disorder) Resolved Problem 09/02/2021 [facility] Fibromyosi Fibromyos Problem Resolve 2021-09-02 Memoria tis itis d 21:39:08 l (disorder) (disorder) He rmann Resolved Problem 09/02/2021 [facility] Migraine Migraine Problem Resolve 2021-09-02 Memoria (disorder) (disorder) d 21:39:08 l Resolved Dre Problem 09/02/2021 [facility] Ulcer Ulcer Problem Resolve 2021-09-02 Mem oria (disorder) (disorder) d 21:39:08 l Resolved Dre Problem 09/02/2021 [facility] Headache Headache Problem Active 2011-12-12 Memoria Active 08:58:08 l Problem Dre 12/12/2011 [facility] Lupus Lupus Problem Active 2011-12-12 Memor ia Active 08:58:08 l Problem [place] 12/12/2011 [facility] Pain Pain Problem Active 2011-12-12 Memor ia Active 08:58:08 l Problem [place] 12/12/2011 [facility] ABDMNAL ABDMNAL Diagnosis Active 2013-09-14 Memoria PAIN PAIN 09:19:00 l UNSPCF UNSPCF Dre SITE SITE Active [facility] GASTRITIS GASTRITIS Diagnosis Active 2013-09-14 Memoria NEC NEC 09:19:00 l Active [facility] ADMINISTRT ADMINISTR Diagnosis Active 2011-12-04 Memoria VE ENCOUNT TVE 12:49:00 l NOS ENCOUNT [place] NOS Active [facility] Bipolar Bipolar Problem Resolve 2021-09-02 2021-09-02 Memoria disorder disorder d - 21:39:08 21:39:08 l (disorder) (disorder) 00:00: He rmann Resolved 00 09/14/2013 Problem 09/02/2021 [facility] Allergies, Adverse Reactions, Alerts Allergy Allergy Status Severity Reaction(s) Onset Inactive Treating Comm ents Source Name Type Date Date Clinician Baclofen Propensi Active Swelling 0 Meth rita ty to -13 st adverse 00:00: Hospita reaction 00 l s to drug Penicill Propensi Active Unknown Metho di ins ty to Reaction 06-07 adverse 00:00: Hospita reaction 00 l s to drug Ondanset Propensi Active GI Method i sj Hcl ty to Intolerance 06-07 adverse 00:00: Hospita reaction 00 l s to drug penicill penicill Active Memori a ins ins l [place] penicill Drug Active 43607 [facility] Zofran Drug Active 70076 [facility] Opana ER Drug Active rash [facility] penicill Drug Active 79083 [facility] Zofran Drug Active 13050 [facility] Opana ER Drug Active rash [facility] penicill Drug Active 84178 [facility] Zofran Drug Active 32211 [facility] Opana ER Drug Active rash [facility] penicill Drug Active 61343 [facility] Zofran Drug Active 45292 [facility] Opana ER Drug Active rash [facility] penicill Drug Active 80147 [facility] Zofran Drug Active 96893 [facility] Opana ER Drug Active rash [facility] penicill Drug Active 20205 [facility] Zofran Drug Active 85250 [facility] Opana ER Drug Active rash [facility] penicill Drug Active 96243 [facility] Zofran Drug Active 27382 [facility] Opana ER Drug Active rash [facility] penicill Drug Active 14449 [facility] Zofran Drug Active 68118 [facility] Opana ER Drug Active rash [facility] penicill penicill Active Memori a ins ins l [place] baclofen baclofen Active Memori a l Dre Zofran Zofran Active Memoria l Dre Food Food Active Memoria Eggs Eggs l Dre Family History Family Member Diagnosis Comments Start Date Stop Date Source Natural father Hypert[facility] Paternal grandmother Diabetes Meth odist [facility] Social History Social Habit Start Date Stop Date Quantity Comments Source Gender identity 2022-08-06 Identifies as Method ist 10:19:15 female gender Hospital (finding) History [facility] Bahai Alcohol Std Drinks Hospit al History [facility] Sexual orientation Method ist [facility] Social History 2021-06-06 2021-06-06 [facility] 15:50:01 15:50:01 History of Social 2019-12-03 2019-12-[address] function 00:00:00 00:00:00 Hospital Alcohol intake 2019-12-03 2019-12-03 Lifetime [facility] 00:00:00 00:00:00 non-drinker Hospital (finding) Tobacco use and 2019-06-07 2019-06-07 Smokeless tobacco Me thodist exposure 00:00:00 00:00:00 non-user Hospital History SDMA 2019-06-07 2019-06-07 1 [facility] Alcohol Frequency 00:00:00 00:00:00 Hospita l Sex Ass[birth year] At [birth year] F Bahai 00:00:00 00:00:00 Hospital Smoking Status Start Date Stop Date Source Tobacco smoking status [facility] Medications Ordered Filled Start Stop Current Ordering Indication Dosage Frequency Signature Comments Components Source Medication Medication Date Date Medication? Clinician (SIG) Name Name naratriptan Yes See Memori a 2.5 mg oral 08-30 Instructio l tablet 14:51: ns, TAKE [place] 00 ONE (1) TABLET(S) BY MOUTH AT ONSET OF HEADACHE. 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 naratriptan 2021-0 Yes See Memori a 2.5 mg oral 4-07 Instructio l tablet 14:51: ns, TAKE [place] 00 ONE (1) TABLET(S) BY MOUTH AT ONSET OF HEADACHE. 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 naratriptan 2021-0 Yes See Memori a 2.5 mg oral 1-24 Instructio l tablet 14:43: ns, TAKE Dre 00 ONE (1) TABLET(S) BY MOUTH AT ONSET OF HEADACHE. 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 naratriptan 2021-0 Yes See Memori a 2.5 mg oral 1-24 Instructio l tablet 14:43: ns, TAKE Dre 00 ONE (1) TABLET(S) BY MOUTH AT ONSET OF HEADACHE. 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 Rimegepant 2021-0 Yes 75 mg = 1 Me moria 75 MG 1-12 tab, PO, l Disintegrat 16:32: Q48H, # 15 Dre ing Oral 00 tab, 1 Tablet Refill(s), [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 MAY REPEAT IN 2 HOURS NEEDED. MAX DOSE OF 2 TABLETS DAILY., # 9 tab, 1 Refill(s), Pharmacy: [facility], 170.18, cm, 06/06/21 9:33:00 OFF[employer] MACH[employer]ES SALES REPRESENTATIVE, He... naratriptan 2021-0 Yes 2.5 mg = 1 Memoria 2.5 mg oral 1-12 tab, PO, l tablet 16:31: PRN, PRN Dre 00 migraine, TAKE ONE (1) TABLET(S) BY MOUTH AT ONSET OF HEADACHE. MAY REPEAT IN 2 HOURS NEEDED. 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 naratriptan 2021-0 No TAKE ONE Me moria 2.5 mg oral 1-12 (1) l tablet 16:03: TABLET(S) Uday n 00 BY MOUTH AT ONSET OF HEADACHE. MAY REPEAT IN 2 HOURS NEEDED. MAX DOSE OF 2 TABLETS DAILY. promethazin 2021-0 Yes TAKE ONE Me moria e 50 mg 1-12 (1) l oral tablet 16:03: TABLET(S) H ermann 00 BY MOUTH FOUR TIMES A DAY. eszopiclone 2021-0 Yes TAKE ONE Me moria 2 mg oral 1-12 (1) l tablet 16:03: TABLET(S) Uday n 00 BY MOUTH AT BEDTIME. hyoscyamine 2021-0 Yes TAKE ONE Me moria 0.125 mg 1-12 (1) TO TWO l oral 16:03: (2) Dre tablet, 00 TABLET(S) disintegrat BY MOUTH ing EVERY FOUR TO SIX HOURS. naratriptan 2021-0 No TAKE ONE Me moria 2.5 mg oral 1-12 (1) l tablet 16:03: TABLET(S) Uday n 00 BY MOUTH AT ONSET OF HEADACHE. MAY REPEAT IN 2 HOURS NEEDED. MAX DOSE OF 2 TABLETS DAILY. promethazin 2021-0 Yes TAKE ONE Me moria e 50 mg 1-12 (1) l oral tablet 16:03: TABLET(S) H ermann 00 BY MOUTH FOUR TIMES A DAY. eszopiclone 2021-0 Yes TAKE ONE Me moria 2 mg oral 1-12 (1) l tablet 16:03: TABLET(S) Uday n 00 BY MOUTH AT BEDTIME. hyoscyamine 2021-0 Yes TAKE ONE Me moria 0.125 mg 1-12 (1) TO TWO l oral 16:03: (2) [place] tablet, 00 TABLET(S) disintegrat BY MOUTH ing EVERY FOUR TO SIX HOURS. hydromorpho 2-0 Yes 4 mg = 1 Me moria ne 4 mg 1-12 tab, PO, l oral tablet 16:02: Q4H, PRN He rmann 00 Pain, 0 Refill(s) omeprazole 2-0 Yes 40 mg = 1 Me moria 40 mg oral 1-12 cap, PO, l delayed 16:02: Daily, # Uday n release 00 30 cap, 0 capsule Refill(s) hydromorpho Yes 4 mg = 1 Me moria ne 4 mg 1-12 tab, PO, l oral tablet 16:02: Q4H, PRN He rmann 00 Pain, 0 Refill(s) omeprazole Yes 40 mg = 1 Me moria 40 mg oral 1-12 cap, PO, l delayed 16:02: Daily, # Uday n release 00 30 cap, 0 capsule Refill(s) zonisamide Yes [id number] TAKE THREE [facility] (ZONEGRAN) 4-23 (3) st 100 MG 00:00: CAPSULE(S) Hospi ta capsule 00 BY MOUTH l ONCE A DAY. zonisamide Yes [id number] TAKE THREE [facility] (ZONEGRAN) 4-23 (3) st 100 MG 00:00: CAPSULE(S) Hospi ta capsule 00 BY MOUTH l ONCE A DAY. levothyroxi 2019-05 Yes 75ug QD Take 75 Met hodi ne 1-[address] (SYNTHROID) 00:00: mouth Hospi ta 75 mcg 00 every l tablet morning. levothyroxi 2019-05 Yes 75ug QD Take 75 Met hodi ne 1-[address] (SYNTHROID) 00:00: mouth Hospi ta 75 mcg 00 every l tablet morning. erythromyci 2019-05 Yes 250mg QD Take 250 M ethodi n base 1-[address] (E-MYCIN) 16:07: mouth Hospita 250 MG 41 daily. l tablet erythromyci 2019-05 Yes 250mg QD Take 250 [...] times a l day. hydromorPHO 2019-05 Yes [id number] 4mg Q4H Take 4 mg [facility] NE 0-[address] (DILAUDID) 15:29: every 4 Hosp jolly 4 MG tablet 22 (four) l hours as needed for moderate pain .acute pain. SUMAtriptan 2019-05 Yes 6mg Inject 6 Me [...] mouth st MG tablet 15:29: nightly. Hosp ojlly 22 Take l immediatel y before bedtime [...] times a l day. hydromorPHO 2019-05 Yes [id number] 4mg Q4H Take 4 mg [facility] NE 0-[address] (DILAUDID) 15:29: every 4 Hosp jolly 4 MG tablet 22 (four) l hours as needed for moderate pain .acute pain. gabapentin Yes [id number] 600mg Q.[id number] Take 1 [facility] (NEURONTIN) 5- [id number] tablet st 600 mg 00:00: 3D (600 mg Hospita tablet 00 total) by l mouth 3 (three) times a day. gabapentin Yes [id number] 600mg Q.[id number] Take 1 [facility] (NEURONTIN) 5-[id number] 600 mg 00:00: 3D (600 mg Hospita tablet 00 total) by l mouth 3 (three) times a day. heparin Yes Notes: Memoria flush 09-24 (Same as: l 19:05: Heparin Dre 00 Lock Flush) heparin Yes Notes: Memoria flush 09-24 (Same as: l 19:05: Heparin Dre 00 Lock Flush) heparin, No 500 unit, Bipin bernardo porcine 09-24 Route: IV, l 18:41: ONCE, Dre 00 Dosing Weight 72.727, kg, Start date: 09/24/13 13:41:00, Stop date: 09/24/13 13:41:00 heparin, No 500 unit, Bipin bernardo porcine 09-24 Route: IV, l 18:41: ONCE, [place] 00 Dosing Weight 72.727, kg, Start date: 09/24/13 13:41:00, Stop date: 09/24/13 13:41:00 Acetaminoph 2013- Yes 15 ml, PO, Memoria en 21.7 5-02 Q6H, for l MG/ML / 18:19: pain, # [place] Hydrocodone 00 240 mL, 0 Bitartrate Refill(s) 0.5 MG/ML Oral Solution [Hycet] Acetaminoph Yes 15 ml, PO, Memoria en 21.7 5-02 Q6H, for l MG/ML / 18:19: pain, # [place] Hydrocodone 00 240 mL, 0 Bitartrate Refill(s) 0.5 MG/ML Oral Solution [Hycet] Sucralfate No Notes: Memor ia 100 MG/ML 4-30 Enteral l Oral 23:00: feeds may [place] Suspension 00 interfere with the absorption of this medication . Shake well. Take 1 hr before or 2 hrs after antacids, dairy pdt, minerals & meals. (Same As: Carafate) Sucralfate No Notes: Memor ia 100 MG/ML 4-30 Enteral l Oral 23:00: feeds may Dre Suspension 00 interfere with the absorption of this medication . Shake well. Take 1 hr before or 2 hrs after antacids, dairy pdt, minerals & meals. (Same As: Carafate) Ferrlecit No Notes: Memori a 4-30 (sodium l 14:33: ferric Dre 00 gluconate complex (elemental iron) 62.5 mg/5 ml INJ) "Limited stability. Use immediatel y after admixture" (Same as: Ferrlecit) Ferrlecit No Notes: Memori a 4-30 (sodium l 14:33: ferric Dre 00 gluconate complex (elemental iron) 62.5 mg/5 ml INJ) "Limited stability. Use immediatel y after admixture" (Same as: Ferrlecit) Magnesium No 2 gm, 50 Bipin bernardo Sulfate 4-30 mL, Route: l 14:32: IVPB, Drug form: INJ, ONCE, Dosing Weight 72.727, kg, Total dose = 2 gm, Start date: 09/22/13 9:32:00, Duration: 1 doses or times, Stop date: 09/22/13 9:32:00 Magnesium 2013- No 2 gm, 50 Bipin bernardo Sulfate 4-30 mL, Route: l 14:32: IVPB, Drug form: INJ, ONCE, Dosing Weight 72.727, kg, Total dose = 2 gm, Start date: 09/22/13 9:32:00, Duration: 1 doses or times, Stop date: 09/22/13 9:32:00 Ketorolac No 4 days Memor ia 4-28 l 23:00: Ketorolac No 4 days Memor ia 4-28 l 23:00: Hydromorpho No 6 mg, 30 Me moria ne 4-28 mL, Route: l 22:30: IV, [employer] Dose: 0.2 mg, [employer] Lockout: 10 minutes, 4 Hour Limit (In MG): 6, Drug Form: INJ, Continuous , Start date: 09/20/13 17:30:00, Duration: 30 day, Stop date: 10/20/13 17:29:00 Hydromorpho No 6 mg, 30 Me moria ne 4-28 mL, Route: l 22:30: IV, [employer] Dre 00 Dose: 0.2 mg, [employer] Lockout: 10 minutes, 4 Hour Limit (In MG): 6, Drug Form: INJ, Continuous , Start date: 09/20/13 17:30:00, Duration: 30 day, Stop date: 10/20/13 17:29:00 Naloxone No Notes: Memoria 09-20 Same as l 22:18: Narcan enalaprilat No Notes: Bipin bernardo 09-20 (Same as: l 22:18: Vasotec-IV ) Ondansetron No Notes: Bipin bernardo - (Same as: l 22:18: Zofran) Promethazin No Notes: Do Jason emoria e 09-20 not give l 22:18: IV push. Dre [...] Solution 30 day, Stop date: 10/20/13 17:17:00 Naloxone No Notes: Memoria 09-20 Same as l 22:18: Narcan enalaprilat No Notes: Bipin bernardo 09-20 (Same as: l 22:18: Vasotec-IV ) Ondansetron No Notes: Bipin bernardo 09-20 (Same as: l 22:18: Zofran) Promethazin No Notes: Do Jason cresporia e 09-20 not give l 22:18: IV push. Dre [...] Memoria 09-20 Infuse l 22:17: over 15 [place] 00 minutes Do not exceed 4gm/day of acetaminop hen Ofirmev No Notes: Memoria 09-20 Infuse l 22:17: over 15 Dre 00 minutes Do not exceed 4gm/day of acetaminop hen Promethazin No Notes: Do M emoria e 4-28 not give l 20:54: IV push. [place] 00 (Same as: Phenergan) Meperidine No Notes: Memor ia 4-28 (Same As: l 20:54: Demerol) Dre 00 Flumazenil No Notes: Memor ia 4-28 (Same as: l 20:54: Romazicon) Dre 00 Naloxone No Notes: Memoria 4-28 Same as l 20:54: Narcan Dre 00 Labetalol No Notes: Memori a 4-28 (Same as: l 20:54: Normodyne, Dre 00 Trandate) Push over 2 minutes Give bolus over 2-3 minutes. Hydromorpho No Notes: Bipin bernardo ne 4-28 Same as: l 20:54: Dilaudid [place] Morphine No Notes: Memoria 4-28 (Same l 20:54: as:MORPhin Dre 00 e Sulfate) Promethazin No Notes: Do M emoria e 4-28 not give l 20:54: IV push. Dre 00 (Same as: Phenergan) Meperidine No Notes: Memor ia 4-28 (Same As: l 20:54: Demerol) Dre 00 Flumazenil No Notes: Memor ia 4-28 (Same as: l 20:54: Romazicon) [place] 00 Naloxone No Notes: Memoria 4-28 Same as l 20:54: Narcan Dre 00 Labetalol No Notes: Memori a 4-28 (Same as: l 20:54: Normodyne, Dre 00 Trandate) Push over 2 minutes Give bolus over 2-3 minutes. Hydromorpho No Notes: Bipin bernardo ne 4-28 Same as: l 20:54: Dilaudid Dre Morphine No Notes: Memoria 4-28 (Same l 20:54: as:MORPhin Dre 00 e Sulfate) Exparel No Notes: Memoria 4-28 (Same as: l 14:00: Exparel) Dre 00 NOT FOR IV use Postoperat yecenia analgesia: [...] (total dose = 30 mL [266 mg]) Exparel No Notes: Memoria 09-20 (Same as: l 14:00: Exparel) [place] 00 NOT FOR IV use Postoperat yecenia analgesia: [...] Duration: 30 day, Stop date: 10/19/13 23:59:00 NS 1,000 mL No 1,000 mL, M emoria 09-20 Rate: 100 l 05:00: ml/hr, [place] 00 Infuse over: 10 hr, Route: IV, Dosing Weight 72.727 kg, Total Volume: 1,000, Start date: 09/20/13 0:00:00, Duration: 30 day, Stop date: 10/19/13 23:59:00 Oriana No 1 tab, Bipin bernardo with Iron 09-18 Route: l Chewable 14:00: CHEW, Drug Form: CHEWTAB, Dosing Weight 72.727, kg, Daily, Start date: 09/18/13 9:00:00, Duration: 30 day, Stop date: 10/17/13 9:00:00 multivitami No Notes: Bipin bernardo n 09-18 Non-Formul l 14:00: cecelia Drug - Dre 00 Give with Food (Same as:Poly-Vi -Greer Chewable) Flintstones No 1 tab, Bipin bernardo with Iron 09-18 Route: l Chewable 14:00: CHEW, Drug Her wallace Form: CHEWTAB, Dosing Weight 72.727, kg, Daily, Start date: 09/18/13 9:00:00, Duration: 30 day, Stop date: 10/17/13 9:00:00 multivitami No Notes: Bipin bernardo n 09-18 Non-Formul l 14:00: cec[facility] Drug - [place] 00 Give with Food (Same as:Poly-Vi -Greer Chewable) Relistor No Notes: Memoria 09-18 Same as: l 02:00: Relistor Dre 00 Restricted to Palliative Care Relistor No Notes: Memoria 09-18 Same as: l 02:00: Relistor Dre 00 Restricted to Palliative Care Sodium No 1,000 mL, Memori a Chloride 4-25 Rate: 30 l 0.154 17:19: ml/hr, [place] MEQ/ML 00 Infuse Injectable over: 33.3 Solution hr, Route: IV, Dosing Weight 72.727 kg, Total Volume: 1,000, Start date: 09/17/13 12:19:00, Stop date: 09/20/13 0:00:00 Sodium No 1,000 mL, Memori a Chloride 4-25 Rate: 30 l 0.154 17:19: ml/hr, [place] MEQ/ML 00 Infuse Injectable over: 33.3 Solution hr, Route: IV, Dosing Weight 72.727 kg, Total Volume: 1,000, Start date: 09/17/13 12:19:00, Stop date: 09/20/13 0:00:00 Sumatriptan No Notes: Bipin bernardo 50 MG Oral 4-25 (Same As: l Tablet 16:50: Imitrex) Dre [Imitrex] 00 Sumatriptan No Notes: Ibpin bernardo 50 MG Oral 4-25 (Same As: l Tablet 16:50: Imitrex) [place] [Imitrex] 00 Tylenol No Notes: Do Memor ia 4-25 not exceed l 16:49: 4 gm/day. [place] 00 (Same as: Tylenol) Tylenol No Notes: Do Memor ia 4-25 not exceed l 16:49: 4 gm/day. Dre 00 (Same as: Tylenol) Klonopin No Notes: Memoria 4-25 (Same As: l 14:00: KlonoPIN) Dre 00 Klonopin No Notes: Memoria 4-25 (Same As: l 14:00: KlonoPIN) [place] 00 Diphenhydra No Notes: Bipin bernardo mine 4-25 (Same as: l 11:00: Benadryl) [place] 00 Diphenhydra No Notes: Bipin bernardo mine 4-25 (Same as: l 11:00: Benadryl) Dre 00 Ketorolac No 4 days Memor ia 4-25 l 10:49: [place] 00 Ketorolac No 4 days Memor ia 4-25 l 10:49: Dre 00 Sumatriptan No Notes: Bipin bernardo 50 MG Oral 4-25 (Same As: l Tablet 10:46: Imitrex) Dre [Imitrex] 00 Sumatriptan No Notes: Bipin bernardo 50 MG Oral 4-25 (Same As: l Tablet 10:46: Imitrex) [place] [Imitrex] 00 Relistor No Notes: Memoria 4-25 Same as: l 02:00: Relistor Dre 00 Restricted to Palliative Care Relistor No Notes: Memoria 4-25 Same as: l 02:00: Relistor [place] 00 Restricted to Palliative Care Miralax No Notes: Memoria 4-24 Dissolve l 14:00: in 8 oz of Dre water or juice. (Same as: Miralax) Miralax No Notes: Memoria 4-24 Dissolve l 14:00: in 8 oz of [place] 00 water or juice. (Same as: Miralax) Docusate No Notes: Memoria Sodium 100 4-23 (Same as: l MG Oral 22:00: Colace) Dre Capsule 00 (Do Not [Colace] Crush) Docusate No Notes: Memoria Sodium 100 4-23 (Same as: l MG Oral 22:00: Colace) Dre Capsule 00 (Do Not [Colace] Crush) Plaquenil No Notes: Memori a 4-23 (Same as: l 17:54: Plaquenil) [place] Plaquenil No Notes: Memori a 4-23 (Same as: l 17:54: Plaquenil) Dre Antioxidant No 30 mL, Bipin bernardo Multiple 4-23 Route: PO, l Vitamins 14:00: Dosing [place] and Weight Minerals 72.727, oral liquid kg, Daily, Start date: 09/15/13 9:00:00, Duration: 30 day, Stop date: 10/14/13 9:00:00 Antioxidant No 30 mL, Bipin bernardo Multiple 4-23 Route: PO, l Vitamins 14:00: Dosing [place] and 00 Weight Minerals 72.727, oral liquid kg, Daily, Start date: 09/15/13 9:00:00, Duration: 30 day, Stop date: 10/14/13 9:00:00 Reglan No Notes: Memoria 4-22 (Same as: l 23:00: Reglan) Dre 00 Reglan No Notes: Memoria 4-22 (Same as: l 23:00: Reglan) [place] 00 Thiamine No Notes: Memoria 4-22 (Same As: l 15:00: Vitamin [place] 00 B1) Thiamine No Notes: Memoria 4-22 (Same As: l 15:00: Vitamin [place] 00 B1) multivitami No Notes: Bipin bernardo n 4-22 (Same as: l 14:26: Multi-Valeria Dre 00 n) multivitami No Notes: Bipin bernardo n 4-22 (Same as: l 14:26: Multi-Valeria [place] 00 n) Vitamin D3 No 2,000 Memori a 2000 intl 4-22 IntlUnit, l units oral 14:25: 2 tab, Vani nn tablet 00 Route: PO, Drug form: TAB, Daily, Dosing Weight 72.727, kg, Start date: 09/14/13 9:25:00, Duration: 30 day, Stop date: 10/14/13 9:00:00 Vitamin D3 No 2,000 Memori a 2000 intl 4-22 IntlUnit, l units oral 14:25: 2 tab, Vani nn tablet 00 Route: PO, Drug form: TAB, Daily, Dosing Weight 72.727, kg, Start date: 09/14/13 9:25:00, Duration: 30 day, Stop date: 10/14/13 9:00:00 Ferrlecit No Notes: Memori a 4-22 (sodium l 14:16: ferric Dre 00 gluconate complex (elemental iron) 62.5 mg/5 ml INJ) "Limited stability. Use immediatel y after admixture" (Same as: Ferrlecit) Ferrlecit No Notes: Memori a 4-22 (sodium l 14:16: ferric Dre 00 gluconate complex (elemental iron) 62.5 mg/5 ml INJ) "Limited stability. Use immediatel y after admixture" (Same as: Ferrlecit) Vitamin B No Notes: Memori a 12 4-22 (Same As: l 14:15: Vitamin Dre 00 B12) Vitamin B No Notes: Memori a 12 4-22 (Same As: l 14:15: Vitamin Dre 00 B12) Temazepam No Notes: Memori a 4-22 (Same As: l 04:37: Restoril) [place] 00 Temazepam No Notes: Memori a 4-22 (Same As: l 04:37: Restoril) [place] 00 Sodium No 1,000 mL, Memori a Chloride 09-14 Rate: 30 l 0.154 00:13: ml/hr, [place] MEQ/ML 00 Infuse Injectable over: 33.3 Solution hr, Route: IV, Dosing Weight 72.727 kg, Total Volume: 1,000, Start date: 09/13/13 19:13:00, Duration: 30 day, Stop date: 10/13/13 19:12:00 Saline No Notes: Memoria Flush 0.9% 4-22 (Same as: l 00:13: BD Dre 00 Posiflush) Acetaminoph No Notes: Max Memoria en 4-22 acetaminop l 00:13: hen = [place] 00 4000mg/day (4 gm/day). (Same as: Tylenol) Morphine No Notes: Memoria 4-22 (Same l 00:13: as:MORPhin [place] 00 e Sulfate) Phenergan No Notes: Do Mem oria 4-22 not give l 00:13: IV push. Dre 00 (Same as: Phenergan) Protonix No Notes: For Mem oria 4-22 IV push l 00:13: reconstitu Dre 00 te with 10 ml 0.9% sodium chloride and push over 2 minutes. (Same as: Protonix) Acetaminoph No Notes: Max Memoria en 4-22 acetaminop l 00:13: hen = [place] 00 4000mg/day (4 gm/day). (Same as: Tylenol) Morphine No Notes: Memoria 4-22 (Same l 00:13: as:MORPhin [place] 00 e Sulfate) Phenergan No Notes: Do Mem oria 4-22 not give l 00:13: IV push. [place] 00 (Same as: Phenergan) Protonix No Notes: For Mem oria 4-22 IV push l 00:13: reconstitu [place] 00 te with 10 ml 0.9% sodium chloride and push over 2 minutes. (Same as: Protonix) Sodium No 1,000 mL, Memori a Chloride 22 Rate: 30 l 0.154 00:13: ml/hr, [place] MEQ/ML 00 Infuse Injectable over: 33.3 Solution hr, Route: IV, Dosing Weight 72.727 kg, Total Volume: 1,000, Start date: 09/13/13 19:13:00, Duration: 30 day, Stop date: 10/13/13 19:12:00 Saline No Notes: Memoria Flush 0.9% 22 (Same as: l 00:13: BD [place] 00 Posiflush) Temazepam Yes 30 mg = 1 Mem oria 30 MG Oral 4-21 cap, PO, l Capsule 23:48: Bedtime, Uday n [Restoril] 00 Sleep, # 30 cap, 0 Refill(s) Temazepam Yes 30 mg = 1 Mem [...] needed [Imitrex] Headache, # 1, 0 Refill(s) Imitrex 6 Yes 6 mg = 0.5 Me moria mg/0.5 mL 4-21 ml, SUB-Q, l subcutaneou 23:47: ONCE, as He rmann s solution 00 needed Headache, # 1, 0 Refill(s) Sucralfate No 1 gm = 1 Mem oria 1000 MG 4-21 tab, PO, l Oral Tablet 23:47: TID, # 120 [place] [Carafate] 00 tab, 0 Refill(s) Sumatriptan Yes 6 mg = 0.5 Memoria 12 MG/ML 4-21 ml, SUB-Q, l Injectable 23:47: ONCE, as Her wallace Solution 00 needed [Imitrex] Headache, # 1, 0 Refill(s) naratriptan Yes 2.5 mg = 1 Memoria 2.5 MG Oral 4-21 tab, PO, l Tablet 23:46: BID, as [place] [Amerge] 00 needed for headache, 0 Refill(s) naratriptan Yes 2.5 mg = 1 [facility]oria 2.5 MG Oral 4-21 tab, PO, l Tablet 23:46: BID, as [place] [Amerge] 00 needed for headache, 0 Refill(s) Morphine No 30 mg = 1 Bipin bernardo Sulfate 30 4-21 tab, PO, l MG Extended 23:45: Q12H, 0 Her wallace Release 00 Refill(s) Tablet [MS Contin] Morphine No 30 mg = 1 Bipin bernardo Sulfate 30 4-21 tab, PO, l MG Extended 23:45: Q12H, 0 Her wallace Release 00 Refill(s) Tablet [MS Contin] Diphenhydra Yes 50 mg = 2 M emoria mine 4-21 tab, PO, l Hydrochlori 23:44: BID, as Her wallace de 25 MG 00 needed for Oral Tablet itching, 0 [Benadryl] Refill(s) Diphenhydra Yes 50 mg = 2 M [...] Oral 00 tab, 0 Tablet Refill(s) [Plaquenil] Lidocaine Yes 1 patch, Bipin bernardo Hydrochlori [...] pdt, minerals & meals. (Same As: Carafate) Carafate No Notes: Memoria 4-21 Enteral l 21:54: feeds may interfere with the absorption of this medication . Shake well. Take 1 hr before or 2 hrs after antacids, dairy pdt, minerals & meals. (Same As: Carafate) Reglan No Notes: Memoria 4-21 (Same as: l 19:30: Reglan) Dre Reglan No Notes: Memoria 4-21 (Same as: l 19:30: Reglan) Dre 00 Protonix No Notes: For Mem oria 4-21 IV push l 19:19: reconstitu Dre 00 te with 10 ml 0.9% sodium chloride and push over 2 minutes. (Same as: Protonix) normal No 1,000 mL, Memori a saline 0.9% 4-21 Rate: l IV 1,000 mL 19:19: 1,000 Vani nn 00 ml/hr, Infuse over: 1 hr, Route: IV, Dosing Weight 72.727 kg, Total Volume: 1,000, Start date: 09/13/13 14:19:00, Duration: 1 doses or times, Stop date: 09/13/13 15:18:00 Protonix No Notes: For Mem oria 4-21 IV push l 19:19: reconstitu [place] 00 te with 10 ml 0.9% sodium chloride and push over 2 minutes. (Same as: Protonix) normal No 1,000 mL, Memori a saline 0.9% -21 Rate: l IV 1,000 mL 19:19: 1,000 [...] date: 12/10/11 13:16:00, Stop date: 12/10/11 13:16:00 heparin Yes Garth P 500 unit, Me moria 7-17 Nico 5 mL, l 18:16: Route: IV, Dre Drug form: SOLN, ONCE, Start date: 12/10/11 13:16:00, Stop date: 12/10/11 13:16:00 Lortab 500 2011- Yes Jose 15 ml, PO, Memoria mg-7.5 7-17 Nico Q4H, PRN, l mg/15 mL 17:22: 200 mL, Uday n oral elixir 59 for pain, Substituti on Allowed, Soft Stop, ELIX Lortab 500 2011- Yes Jose 15 ml, PO, Memoria mg-7.5 7-17 Nico Q4H, PRN, l mg/15 mL 17:22: 200 mL, Uday n oral elixir 59 for pain, Substituti on Allowed, Soft Stop, ELIX Ambien 10 Yes Jose 10 mg, 1 Me moria mg oral 7-17 Nico tab, PO, l tablet 17:22: Bedtime, [place] 19 200 tab, Substituti on Allowed, TAB Ambien 10 Yes Jose 10 mg, 1 Me moria mg oral 7-17 Nico tab, PO, l tablet 17:22: Bedtime, [place] 19 200 tab, Substituti on Allowed, TAB Tylenol No Garth P 650 mg, 2 Me moria 7-13 Nico tab, l 22:35: Route: PO, Dre 00 Drug form: TAB, Q4H, PRN Fever, Start date: 12/06/11 17:35:00, Duration: 30 day, Stop date: 01/05/12 17:34:00 Tylenol 2011-0 No Garth P 650 mg, 2 Me moria 7-13 Nico tab, l 22:35: Route: PO, Drug form: TAB, Q4H, PRN Fever, Start date: 12/06/11 17:35:00, Duration: 30 day, Stop date: 01/05/12 17:34:00 calcium 2011-0 No Garth P 2,000 mg, Me moria [...] date: 12/06/11 13:40:00, Stop date: 12/06/11 13:40:00 calcium 2011-0 No Garth P 2,000 mg, Me moria gluconate + 7-13 Nico 20 mL, l Sodium 18:40: Route: IV, Vain nn Chloride 00 ONCE, 0.9% IV 100 Start mL date: 12/06/11 13:40:00, Stop date: 12/06/11 13:40:00 SoluCortef 2011-0 No Garth P 100 mg, 2 Memoria 7-13 Nico mL, Route: l 18:40: IV, Drug [place] 00 form: PDR/INJ, ONCE, Start date: 12/06/11 13:40:00, Stop date: 12/06/11 13:40:00 Benadryl 2011-0 No Garth P 25 mg, 0.5 Memoria 7-13 Nico mL, Route: l 18:39: IV, Drug Dre 00 form: INJ, ONCE, Start date: 12/06/11 13:39:00, Stop date: 12/06/11 13:39:00 Benadryl 2011-0 No Garth P 25 mg, 0.5 Memoria 7-13 Nico mL, Route: l 18:39: IV, Drug Dre 00 form: INJ, ONCE, Start date: 12/06/11 13:39:00, Stop date: 12/06/11 13:39:00 Sodium 2011-0 No Garth P 2,000 mL, Mem oria Chloride 7-13 Nico Rate: x 1 l 0.9% IV 18:33: bolus, Dre 2,000 mL 00 Route: IV, Dosing Weight 74.545 kg, Total Volume: 2,000, Start date: 12/06/11 13:33:00, Duration: 1 doses or times, Stop date: 12/06/11 15:32:00 Sodium 2011-0 No Garth P 2,000 mL, Mem oria Chloride 7-13 Nico Rate: x 1 l 0.9% IV 18:33: bolus, [place] 2,000 mL 00 Route: IV, Dosing Weight 74.545 kg, Total Volume: 2,000, Start date: 12/06/11 13:33:00, Duration: 1 doses or times, Stop date: 12/06/11 15:32:00 ketorolac 2011-0 No Garth P 30 mg, 1 M emoria 30 mg/mL 7-13 Nico mL, Route: l injectable 03:00: IV, Drug wallace solution 00 form: INJ, Q6H, Start date: 12/05/11 22:00:00, Duration: 8 doses or times, Stop date: 12/07/11 16:00:00 ketorolac 2011-0 No Garth P 30 mg, [...] Duration: 30 day, Stop date: 01/04/12 18:00:00 Reglan 2012-0 No Garth P 10 mg, 2 Bipin bernardo 7-13 Nico mL, Route: l 00:00: IVP, Drug [place] 00 form: INJ, Q6H, Start date: 12/05/11 19:00:00, Duration: 30 day, Stop date: 01/04/12 18:00:00 dexamethaso 2011-0 No Michael S 4 mg, 1 Memoria ne 7-12 Minkowitz mL, Route: l 21:50: IVP, Drug [place] 00 form: INJ, ONCE, PRN Nausea & Vomiting, Start date: 12/05/11 16:50:00 promethazin 2011-0 No Michael S 6.25 mg, Memoria e + Sodium 7-12 [place] 0.25 mL, l Chloride 21:50: Route: Dre 0.9% IV 00 IVPB, mL ONCE, PRN [...] flumazenil No Gaston 0.2 mg, Memoria 7-12 [place] Route: l 21:50: IVP, PRN, PRN Benzodiaze pine Reversal, Initial dose, Start date: 12/05/11 16:50:00, Duration: 30 day, Stop date: 01/04/12 16:49:00 naloxone 2011- No Michael S 0.04 mg, M emoria 7-12 [place] 0.1 mL, l 21:50: Route: IVP, Drug form: INJ, Q2MIN, PRN Narcotic Reversal, Start date: 12/05/11 16:50:00, Duration: 8 doses or times, Stop date: Limited # of times acetaminoph No Michael S 1,000 mg, Memoria en 10 mg/mL 7-12 Minkowitz 100 mL, l intravenous 21:50: Route: IV, Dre solution Drug form: INJ, ONCE, PRN Pain Score 4-6, Start date: 12/05/11 16:50:00, Duration: 1 doses or times, Stop date: Limited # of times, Infuse over 15 minutes (for patient weight 50 kg or greater)In fuse over 15 minutes (for patient weight 50 kg or greater) dexamethaso No Michael S 4 mg, 1 Memoria ne 7-12 [place] mL, Route: l 21:50: IVP, Drug form: INJ, ONCE, PRN Nausea & Vomiting, Start date: 12/05/11 16:50:00 promethazin No Michael S 6.25 mg, Memoria e + Sodium 7-12 Minkowitz 0.25 mL, l Chloride 21:50: Route: Dre 0.9% IV 50 00 IVPB, mL ONCE, [...] flumazenil No [place] 0.2 mg, Memoria 7-12 [place] Route: l 21:50: IVP, PRN, PRN Benzodiaze [...] 100 mL, l intravenous 21:50: Route: IV, Dre solution 00 Drug form: INJ, ONCE, PRN Pain Score 4-6, Start date: 12/05/11 16:50:00, Duration: 1 doses or times, Stop date: Limited # of times, Infuse over 15 minutes (for patient weight 50 kg or greater)In fuse over 15 minutes (for patient weight 50 kg or greater) hydromorpho No Michael S 0.5 mg, Memoria ne 7-12 [place] 0.25 mL, l 20:04: Route: Dre IVP, Drug form: INJ, Q5Min, PRN Pain [...] 7-12 Minkowitz 0.1 mL, l 20:04: Route: [place] 00 IVP, Drug form: INJ, Q2MIN, PRN Narcotic Reversal, Start date: 12/05/11 15:04:00, Duration: 8 doses or times, Stop date: Limited # of times flumazenil No Michael S 0.2 mg, 2 Memoria 7-12 Minkowitz mL, Route: l 20:04: IVP, Drug Dre 00 form: INJ, PRN, PRN Benzodiaze pine Reversal, Initial dose, Start date: 12/05/11 15:04:00, Duration: 30 day, Stop date: 01/04/12 15:03:00 hydromorpho No Michael S 0.5 mg, Memoria ne 7-12 Mink[place] 0.25 mL, l 20:04: Route: [place] 00 IVP, Drug form: INJ, Q5Min, PRN [...] 7-12 Minkowitz 0.1 mL, l 20:04: Route: Dre IVP, Drug form: INJ, Q2MIN, [...] 2011-0 No Garth P 133 mL, Memoria 7- Nico Route: DE, l 14:00: Drug Form: Dre 00 TYSON, ONCE, Start date: 12/05/11 9:00:00, Stop date: 12/05/11 9:00:00 Fleet Enema 2011-0 No Garth P 133 mL, Memoria 7- Nico Route: DE, l 14:00: Drug Form: Dre 00 TYSON, ONCE, Start date: 12/05/11 9:00:00, Stop date: 12/05/11 9:00:00 Fleet Enema 2011-0 No Garth P 133 mL, Memoria 7- Nico Route: DE, l 19:00: Drug Form: Dre 00 TYSON, ONCE, Start date: 12/04/11 14:00:00, Stop date: 12/04/11 14:00:00 Citrate of 0 No Garth P 300 mL, Jason hymana Milindesia 7-11 Nico Route: PO, l 19:00: Drug Form: Dre 00 LIQ, ONCE, Start date: 12/04/11 14:00:00, Stop date: 12/04/11 14:00:00 Flesonya Ramsay 2011-0 No Garth P 133 mL, Memoria 7-11 Nico Route: DE, l 19:00: Drug Form: [place] 00 TYSON, ONCE, Start date: 12/04/11 14:00:00, Stop date: 12/04/11 14:00:00 Citrate of No Garth P 300 mL, Jason Vazesia 7- Nico Route: PO, l 19:00: Drug Form: Dre 00 LIQ, ONCE, Start date: 12/04/11 14:00:00, Stop date: 12/04/11 14:00:00 Ambien 0 No Garth P 10 mg, 1 Bipin bernardo 7-11 Nico tab, l 02:00: Route: PO, Dre 00 Drug form: TAB, Bedtime, Start date: 12/03/11 21:00:00, Duration: 30 day, Stop date: 01/01/12 21:00:00 Ambien 2011-0 No Garth P 10 mg, 1 Bipin bernardo 7-11 Nico tab, l 02:00: Route: PO, Dre 00 Drug form: TAB, Bedtime, Start date: 12/03/11 21:00:00, Duration: 30 day, Stop date: 01/01/12 21:00:00 Benadryl 2011-0 No Garth P 25 mg, 0.5 Memoria 7-10 Nico mL, Route: l 23:37: IVP, Drug [place] 00 form: INJ, Q6H, PRN Itching, Start date: 12/03/11 18:37:00, Duration: 30 day, Stop date: 01/02/12 18:36:00 Benadryl 2011-0 No Garth P 25 mg, 0.5 Memoria 7-10 Nico mL, Route: l 23:37: IVP, Drug [place] 00 form: INJ, Q6H, PRN Itching, Start date: 12/03/11 18:37:00, Duration: 30 day, Stop date: 01/02/12 18:36:00 Protonix + 2011-0 No Garth P 40 mg, Me moria Sodium 7-10 Nico Route: l Chloride 21:30: IVP, [place] 0.9% IV 10 00 Before mL Dinner, Start date: 12/03/11 16:30:00, Duration: 30 day, Stop date: 01/01/12 16:30:00 Protonix + 2011-0 No Garth P 40 mg, Me moria Sodium 7-10 Nico Route: l Chloride 21:30: IVP, Dre 0.9% IV 10 00 Before mL Dinner, Start date: 12/03/11 16:30:00, Duration: 30 day, Stop date: 01/01/12 16:30:00 Floranex 2012-0 No Garth P 1 tab, Bipin bernardo 7-10 Nico Route: PO, l 18:00: Drug Form: Dre 00 TAB, Q8H, Start date: 12/03/11 13:00:00, Duration: 30 day, Stop date: 01/02/12 5:00:00 Floranex 2012-0 No Garth P 1 tab, Bipin bernardo 7-10 Nico Route: PO, l 18:00: Drug Form: [place] 00 TAB, Q8H, Start date: 12/03/11 13:00:00, Duration: 30 day, Stop date: 01/02/12 5:00:00 hyoscyamine 2012-0 Yes 0.125 mg, M emoria 0.125 mg 7-10 1 tab, PO, l oral tablet 17:53: TID, PRN, H ermann 09 40 tab, as needed for spasm, Substituti on Allowed, TAB hyoscyamine 2011-0 Yes 0.125 mg, M emoria [...] Substituti on Allowed, IN AM, TABIN AM levothyroxi 2012-0 Yes 150 Memori a ne 150 mcg 7-10 microgram, l (0.15 mg) 17:52: 1 tab, PO, He rmann oral tablet 41 Daily, 30 tab, Substituti on Allowed, IN AM, TABIN AM divalproex 2011-0 Yes 750 mg, Bipin bernardo sodium 7-10 PO, l 17:51: Bedtime, Dre 47 Substituti on Allowed, TAB divalproex 2012-0 Yes 750 mg, Bipin bernardo sodium 7-10 PO, l 17:51: Bedtime, Dre 47 Substituti on Allowed, TAB Klonopin 1 2012-0 Yes 1 mg, 1 Bipin bernardo mg oral 7-10 tab, PO, l tablet 17:51: TID, Dre 38 Substituti on Allowed, TAB Klonopin 1 2012-0 Yes 1 mg, 1 Bipin bernardo mg oral 7-10 tab, PO, l tablet 17:51: TID, Dre 38 Substituti on Allowed, TAB Ambien 10 2012-0 Yes 10 mg, 1 Bipin bernardo mg oral 7-10 tab, PO, l tablet 17:51: Bedtime, Dre 09 PRN, as needed for sleep, Substituti on Allowed, TAB Ambien 10 2012-0 Yes 10 mg, 1 Bipin bernardo mg oral 7-10 tab, PO, l tablet 17:51: Bedtime, [place] 09 PRN, as needed for sleep, Substituti on Allowed, TAB Zanaflex 2012-0 Yes 8 mg, PO, Bipin bernardo 7-10 Bedtime, l 17:51: Substituti [place] 02 on Allowed, TAB Zanaflex 2012-0 Yes 8 mg, PO, Bipin bernardo 7-10 Bedtime, l 17:51: Substituti Dre 02 on Allowed, TAB Zanaflex 2 2012-0 Yes 2 mg, 1 Bipin bernardo mg oral 7-10 cap, PO, l capsule 17:50: TID, 180 Uday n 58 cap, Substituti on Allowed, CAP Zanaflex 2 2012-0 Yes 2 mg, 1 Bipin bernardo mg oral 7-10 cap, PO, l capsule 17:50: TID, 180 Uday n 58 cap, Substituti on Allowed, CAP Phenergan 2012-0 Yes 50 mg, PO, Me moria 7-10 Q6H, l 17:50: Substituti Dre 39 on Allowed, TAB Phenergan Yes 50 mg, PO, Me moria 7-10 Q6H, l 17:50: Substituti [place] 39 on Allowed, TAB fentanyl 75 Yes 1 patch, Me moria mcg/hr 7-10 TOP, Q72H, l transdermal 17:50: Substituti [place] film, 06 on extended Allowed, release Soft Stop, ERFILM fentanyl 75 Yes 1 patch, Me moria mcg/hr 7-10 TOP, Q72H, l transdermal 17:50: Substituti [place] film, 06 on extended Allowed, release Soft Stop, ERFILM naloxone No Garth P 0.2 mg, Mem oria 7-10 Nico 0.5 mL, l 17:49: Route: Dre 00 IVP, Drug form: INJ, Q5Min, PRN Narcotic Reversal, Start date: 12/03/11 12:49:00, Duration: 30 day, Stop date: 01/02/12 12:48:00 naloxone No Garth P 0.2 mg, Mem [...] Duration: 30 day, Stop date: 01/02/12 9:00:00 M.V.I. No Garth P 102.24 Memori a Adult 10 mL 7-10 Nico ml/hr, l + folic 16:57: Route: IV, Herm hernandez acid 1 mg + 00 Drug Form: Vitamin B1 INJ, 100 mg + Daily, Sodium Start Chloride date: 0.9% IV 500 12/03/11 mL 11:57:00, Duration: 30 day, Stop date: 01/02/12 9:00:00 Vitamin D3 2011-0 No Garth P 5,000 Mem oria 7-10 Nico IntlUnit, l 16:55: 5 tab, [place] Route: PO, Drug form: TAB, Daily, Start date: 12/03/11 11:55:00, Duration: 30 day, Stop date: 01/02/12 9:00:00 Vitamin D3 2011-0 No Garth P 5,000 Mem oria 7-10 Nico IntlUnit, l 16:55: 5 tab, Dre Route: PO, Drug form: TAB, Daily, Start date: 12/03/11 11:55:00, Duration: 30 day, Stop date: 01/02/12 9:00:00 hydromorpho 2011-0 No Garth P 6 mg, 30 Memoria ne 6 mg 7-10 Nico mL, Route: l 16:54: IV, Drug Dre Form: INJ, Start date: 12/03/11 11:54:00, Stop date: 01/02/12 11:53:00 hydromorpho 2011-0 No Garth P 6 mg, 30 Memoria ne 6 mg 7-10 Nico mL, Route: l 16:54: IV, Drug [place] 00 Form: INJ, Start date: 12/03/11 11:54:00, Stop date: 01/02/12 11:53:00 Phenergan + 2011-0 No Garth P 12.5 mg, Memoria Sodium 7-10 Nico 0.5 mL, l Chloride 16:53: Route: [place] 0.9% IV 50 00 IVPB, Q6H, mL PRN Nausea & Vomiting, Start date: 12/03/11 11:53:00, Duration: 30 day, Stop date: 01/02/12 11:52:00 ketorolac 2011-0 No Garth P 30 mg, 1 M emoria 30 mg/mL 7-10 Nico mL, Route: l injectable 16:53: IV, Drug Her wallace solution 00 form: INJ, Q6H, PRN Pain, Start date: 12/03/11 11:53:00, Duration: 4 day, Stop date: 12/07/11 11:52:00 Phenergan + 2011-0 No Garth P 12.5 mg, Memoria Sodium 7-10 Nico 0.5 mL, l Chloride 16:53: Route: [place] 0.9% IV 50 00 IVPB, Q6H, mL [...] Route: IV, l 0.9% IV 16:52: Start Dre 00 date: 12/03/11 11:52:00, Duration: 30 day, Stop date: 01/02/12 11:51:00, PRN Line Flush BD Normal 2011-0 No Garth P 10 mL, Mem oria Saline 7-10 Nico Route: IV, l Flush 16:52: Drug Form: Uday n 00 INJ, PRN, PRN Line Flush, Start date: 12/03/11 11:52:00, Duration: 30 day, Stop date: 01/02/12 11:51:00 D5W 1/2NS + 2011- No Garth P 1,000 mL, Memoria KCL 20mEq/L 7-10 Nico Rate: 120 l 1000ml 16:52: ml/hr, Dre (Premix) 00 Infuse 1,000 mL over: 8.3 hr, Route: IV, Dosing Weight 74.545 kg, Total Volume: 1,000, Start date: 12/03/11 11:52:00, Duration: 30 day, Stop date: 01/02/12 11:51:00 Sodium 2011-0 No Garth P 25 mL, Memori a Chloride 7-10 Nico Route: IV, l 0.9% IV 16:52: Start Dre date: 12/03/11 11:52:00, Duration: 30 day, Stop [...] Nico Rate: 120 l 1000ml 16:52: ml/hr, [place] (Premix) 00 Infuse 1,000 mL over: 8.3 [...] 06:19:41 Systolic (mm Hg) 2021-06-06 15:33:00 Bipin codey Dre Diastolic (mm Hg) 2021-06-06 15:33:00 [facility] orial [place] Heart Rate 2021-06-06 15:33:00 [facility] Dre Respitory Rate 2021-06-06 15:33:00 Memori al Dre Height 2021-06-06 15:33:00 170.18 cm [facility] [place] Weight 2021-06-06 15:33:00 [facility] [place] BMI Calculated 2021-06-06 15:33:00 Anne al [place] Temperature Oral (F) 2013-09-24 17:18:00 98.2 F [facility] Dre Heart Rate 2013-09-24 17:18:00 [facility] [place] Respitory Rate 2013-09-24 17:18:00 Memori al [place] Systolic (mm Hg) 2013-09-24 17:18:00 Bipin rial [place] Diastolic (mm Hg) 2013-09-24 17:18:00 Mem orial Dre Diastolic (mm Hg) 2013-09-24 12:20:00 Mem orial [place] Systolic (mm Hg) 2013-09-24 12:20:00 Bipin rial [place] Respitory Rate 2013-09-24 12:20:00 Memori al Dre Heart Rate 2013-09-24 12:20:00 [facility] Dre Temperature Oral (F) 2013-09-24 12:20:00 98.6 F [facility] Dre Heart Rate 2013-09-24 09:00:00 [facility] [place] Systolic (mm Hg) 2013-09-24 09:00:00 Bipin rial Dre Diastolic (mm Hg) 2013-09-24 09:00:00 Mem orial Dre Respitory Rate 2013-09-24 09:00:00 Memori al Dre Temperature Oral (F) 2013-09-24 09:00:00 98.1 F [facility] [place] Height 2013-09-13 19:05:00 175.26 cm [facility] Dre Weight 2013-09-13 19:05:00 [facility] Dre BMI Calculated 2013-09-13 19:05:00 Memori al [place] Heart Rate 2011-12-10 17:00:00 [facility] [place] Temperature Oral (F) 2011-12-10 17:00:00 98.4 F [facility] Dre Diastolic (mm Hg) 2011-12-10 17:00:00 Mem orial Dre Systolic (mm Hg) 2011-12-10 17:00:00 Bipin rial Dre Respitory Rate 2011-12-10 17:00:00 Memori al [place] Heart Rate 2011-12-10 13:00:00 [facility] Dre Temperature Oral (F) 2011-12-10 13:00:00 97.9 F [facility] Dre Systolic (mm Hg) 2011-12-10 13:00:00 Bipin rial [place] Respitory Rate 2011-12-10 13:00:00 Memori al [place] Diastolic (mm Hg) 2011-12-10 13:00:00 Mem [facility] [place] Systolic (mm Hg) 2011-12-10 10:10:00 Bipin alegre Dre Diastolic (mm Hg) 2011-12-10 10:10:00 Mem [facility] [place] [facility] Rate 2011-12-10 10:10:00 [facility] [place] Respitory Rate 2011-12-10 10:10:00 Anne nava Dre Temperature Oral (F) 2011-12-10 10:10:00 98.0 F [facility] Height 2011-12-03 16:29:00 [facility] 2011-12-03 16:29:00 [facility] Procedures Procedure Date / Time Performed Performing Clinician Skyler e Appendectomy [facility] Partial hysterectomy [facility] Colon [facility] operation<sup>3</sup> Bariatric operative [facility] wallace procedure<sup>1</sup> Plan of Care Planned Activity Planned Date Details Comments Source Future Scheduled 2022-08-29 COVID-19 VACCINE (#1) [facility] Test 05:01:03 [code = COVID-19 VACCINE (#1)] Future Scheduled 2022-08-29 Hepatitis C screening [facility] Test 05:01:03 (procedure) [code = [id number]] Future Scheduled 2022-08-29 Screening for [facility] Test 05:01:03 malignant neoplasm of cervix (procedure) [code = [id number]] Future Scheduled 2022-08-29 BREAST CANCER [facility] Test 05:01:03 SCREENING [code = BREAST CANCER SCREENING] Future Scheduled 2022-08-29 COLONOSCOPY SCREENING [facility] Test 05:01:03 [code = COLONOSCOPY SCREENING] Future Scheduled 2022-08-29 SHINGLES VACCINES ([address] [facility] Test 05:01:03 of 2) [code = SHINGLES VACCINES (1 of 2)] Future Scheduled 2022-08-29 INFLUENZA VACCINE Method [facility] Test 05:01:03 [code = INFLUENZA VACCINE] Future Scheduled 2022-01-16 HEPATITIS B VACCINES Met [facility] Test 22:14:06 (1 of 3 - 3-dose series) [code = HEPATITIS B VACCINES (1 of 3 - 3-dose series)] Future Scheduled 2022-01-16 COVID-19 VACCINE (#1) [facility] Test 22:14:06 [code = COVID-19 VACCINE (#1)] Future Scheduled 2022-01-16 Hepatitis C screening [facility] Test 22:14:06 (procedure) [code = [id number]] Future Scheduled 2022-01-16 Screening for [facility] Test 22:14:06 malignant neoplasm of cervix (procedure) [code = [id number]] Future Scheduled 2022-01-16 BREAST CANCER [facility] Test 22:14:06 SCREENING [code = BREAST CANCER SCREENING] Future Scheduled 2022-01-16 COLONOSCOPY SCREENING [facility] Test 22:14:06 [code = COLONOSCOPY SCREENING] Future Scheduled 2022-01-16 SHINGLES VACCINES ([address] [facility] Test 22:14:06 of 2) [code = SHINGLES VACCINES (1 of 2)] Future Scheduled 2022-01-16 INFLUENZA VACCINE Method [facility] Test 22:14:06 [code = INFLUENZA VACCINE] Encounters Start End Encounter Admission Attending Care Care Encounter Source Date/Time Date/Time Type Type Clinicians Facility Department ID 2019-10-28 Inpatient [facility] [id number] S t. 15:30:00 [facility] 2022-07-04 2022-07-04 Ambulatory MHIE MNA [id number] [place] 16:15:00 16:15:00 Pre-Reg Neurology 03 carlene Mabryann 2022-07-04 2022-07-04 Outpatient MHIE MHIE [id number] [place] 10:15:00 10:15:00 Ramone Erickson 2022-07-04 2022-07-04 Outpatient PRANAY KrugerSCHJOSE QUIROGAMISCHJOSE [id number] 10:15:00 10:15:00 Robert Smiley 2021-08-30 2021-08-31 Between nullFlavo MNA [id number] [facility]oria 14:51:16 14:51:16 Visit r Neurology 04 carlene Erickson 2021-08-30 2021-08-31 Between nullFlavo MNA [id number] [place] 14:51:16 14:51:16 Visit r Neurology 04 carlene Mabryann 2021-08-30 2021-08-31 Outpatient MHMISCHER MHMISCHER [id number] 09:51:16 09:51:16 2021-07-18 2021-07-18 Ambulatory nullFlavo MNA [id number] Memoria 19:15:00 19:15:00 Pre-Reg r Neurology 02 l Venu Erickson 2021-07-18 2021-07-18 Ambulatory nullFlavo MNA [id number] Memoria 19:15:00 19:15:00 Pre-Reg r Neurology 02 l Venu Erickson 2021-07-18 2021-07-18 Outpatient MHIE MHIE [id number] [place] 13:15:00 13:15:00 02 carlene Erickson 2021-07-18 2021-07-18 [facility] [id number] 13:15:00 13:15:00 Robert 02 Baljit 2021-06-06 2021-06-07 Outpatient nullFlavo MNA [id number] Memoria 15:30:00 05:59:59 r Neurology 01 carlene Erickson 2021-06-06 2021-06-07 Outpatient nullFlavo MNA [id number] Memoria 15:30:00 05:59:59 r Neurology 01 carlene Erickson 2021-06-06 2021-06-06 Outpatient JUNAID Kru[facility]KSFR[facility] [id number] 09:30:00 23:59:59 Robert Baljit 2021-06-06 2021-06-06 Outpatient MHIE MHIE [id number] [place] 09:30:00 09:30:00 01 carlene Erickson 2021-04-12 2021-04-12 Ambulatory nullFlavo MNA [id number] Mem[facility] 22:00:00 22:00:00 Pre-Reg r Neurology 00 l Venu Erickson 2021-04-12 2021-04-12 Ambulatory nullFlavo MNA [id number] Memoria 22:00:00 22:00:00 Pre-Reg r Neurology 00 l Venu Erickson 2021-04-12 2021-04-12 Outpatient MHIE MHIE [id number] [place] 16:00:00 16:00:00 00 carlene Erickson 2021-04-12 2021-04-12 [id number] 16:00:00 16:00:00 Robert 00 Baljit 2020-05-02 2020-05-02 Outpatient [facility] [id number] [place] [address] 00:00:00 00:00:00 JAVAD [address] 2020-03-21 2020-03-21 Outpatient [facility] [id number] [place] 00:00:00 00:00:00 JAVAD [address] 2019-12-03 2019-12-03 Outpatient [facility] [id number] [place] 00:00:00 00:00:00 JAVAD [address] 2019-11-05 2019-11-05 Outpatient 3 [facility] [id number] 05:50:00 05:50:00 [id number] [facility] 2019-10-12 2019-10-12 Outpatient CEL[facility], [facility] [id number] [place] 00:00:00 00:00:00 JAVAD [address] 2019-09-24 2019-09-24 Outpatient [facility] [id number] [place] 00:00:00 00:00:00 JAVAD 950 Method i 2013-09-13 2013-09-24 Inpatient [facility] [id number] Memoria 18:43:00 19:55:[address] 2013-09-13 2013-09-24 Inpatient [facility] [id number] Mem[place] 18:43:00 19:55:[address] 2013-09-13 2013-09-24 Outpatient Malinda [id number] 13:43:00 14:55:00 [place] [id number] 4781-07-10 2011-12-10 Inpatient nullFlavo [facility] 39 [id number] Memoria 10:48:00 14:30:[address] 2011-12-03 2011-12-10 Inpatient nullFlavo [facility] 39 [id number] Memoria 10:48:00 14:30:[address] Results Test Description Test Time Test Results Result Source Comments Comments XR Chest 1 View 2019-10-25 Patient: IVAN MENESES MRN: Frontal 2 [id number] 14:41:04 Date/Time11/05/2019 10:25 CDTReason for ExamLine placementReportLOCATION: [id number] VIEWINDICATION: Line placementCOMPARISON: None availableFINDINGS: Right [...] IVAN MENESES MRN: in Imaging per 2 [id number] Hour 10:29:38 Date/Time11/05/2019 09:10 CDTReason for ExamsurgeryReportLocation [...] (test code = Magnesium Lvl) 1.5 1.8-2.4 [facility] In [id number] 09:50:00 Test Item Value Reference Range Interpretation Comments eGFR (test code = eGFR) 104 [facility] [id number] 09:50:00 Test Item Value Reference Range Interpretation Comments Chloride Lvl (test code = Chloride Lvl) 104 95-109 [facility] [id number] 09:50:00 Test Item Value Reference Range Interpretation Comments Potassium Lvl (test code = Potassium 4.2 3.5-5.1 Lvl) [facility]2014-05-01 09:50:00 Test Item Value Reference Range Interpretation Comments Calcium Lvl (test code = Calcium Lvl) 7.9 8.5-10.5 [facility]2014-05-01 09:50:00 Test Item Value Reference Range Interpretation Comments CO2 (test code = CO2) 27 24-32 [place] 663054-05-01 09:50:00 Test Item Value Reference Range Interpretation Comments Creatinine Lvl (test code = Creatinine 0.7 0.5-1.4 Lvl) [facility]2014-05-01 09:50:00 Test Item Value Reference Range Interpretation Comments BUN (test code = BUN) 6 7-22 [place] 663054-05-01 09:50:00 Test Item Value Reference Range Interpretation Comments Glucose Lvl (test code = Glucose Lvl) 71 70-99 [facility]2014-05-01 09:50:00 Test Item Value Reference Range Interpretation Comments Sodium Lvl (test code = Sodium Lvl) 139 135-145 [facility]2014-05-01 09:50:00 Test Item Value Reference Range Interpretation Comments AGAP (test code = AGAP) 12.2 10.0-20.0 [id number] 09:50:00 Test Item Value Reference Range Interpretation Comments Segs (test code = Segs) 60.8 45.0-75.0 [facility] CampusQvvzutvMKQEIWNGMP2991-63-11 09:50:00 Test Item Value Reference Range Interpretation Comments Segs-Bands # (test code = Segs-Bands #) 2.6 1.5-8.1 [facility] CampusDzdhqkhZSEHSUKHGJ4501-49-81 09:50:00 Test Item Value Reference Range Interpretation Comments Basophils (test code = 0.5 See_Comment [Aut omated message] The Basophils) system which ge nerated this result tra nsmitted reference range : <=1.0. The reference r javier was not used to int erpret this result as normal/abnormal . [facility] CampusJrphmmoYVNQVVQAWD4045-11-63 09:50:00 Test Item Value Reference Range Interpretation Comments Eosinophils (test code = 3.6 See_Comment [A utomated message] The Eosinophils) system which ge nerated this result tra nsmitted reference range : <=4.0. The reference r javier was not used to int erpret this result as normal/abnormal . [facility] CampusYvcyswaJKIQZHKNHF7119-71-06 09:50:00 Test Item Value Reference Range Interpretation Comments Monocytes (test code = Monocytes) 13.4 2.0-12.0 [facility] CampusYgizhzeIJSILVRTZQ6996-85-87 09:50:00 Test Item Value Reference Range Interpretation Comments Lymphocytes (test code = Lymphocytes) 21.7 20.0-40.0 [facility] CampusToxdaewCLOHHNZHRO2412-38-08 09:50:00 Test Item Value Reference Range Interpretation Comments Eosinophils # (test code 0.2 See_Comment [A utomated message] The = Eosinophils #) system whic h generated this result tra nsmitted reference range : <=0.5. The reference r javier was not used to int erpret this result as normal/abnormal . [facility] CampusFibpymfQCOOBQLELJ9725-81-70 09:50:00 Test Item Value Reference Range Interpretation Comments Monocytes # (test code 0.6 See_Comment [Aut omated message] The = Monocytes #) system which generated this result tra nsmitted reference range : <=0.8. The reference r javier was not used to int erpret this result as normal/abnormal . [facility] CampusKdkrobjBVHVQTCIOH2766-47-76 09:50:00 Test Item Value Reference Range Interpretation Comments Lymphocytes # (test code = Lymphocytes 0.9 1.0-5.5 #) [facility] CampusEzbaaynYOKHERUZPU8676-26-99 09:50:00 Test Item Value Reference Range Interpretation Comments Hct (test code = Hct) 23.3 36.0-48.0 [facility] CampusVcftxkhGYDRUMZBOS1253-85-35 09:50:00 Test Item Value Reference Range Interpretation Comments MPV (test code = MPV) 8.0 7.4-10.4 [facility] CampusFsfpmnaNUVHNDCMKH1091-74-49 09:50:00 Test Item Value Reference Range Interpretation Comments Platelet (test code = Platelet) 177 133-450 [facility] CampusQkhmlfhQXJPETBVXE7141-24-90 09:50:00 Test Item Value Reference Range Interpretation Comments RDW (test code = RDW) 16.1 11.5-14.5 [facility] CampusTijrioaGQZSKGVPRM3628-49-41 09:50:00 Test Item Value Reference Range Interpretation Comments MCHC (test code = MCHC) 35.0 32.0-36.0 [facility] CampusBitwrynVSFNFUUZRW6629-18-87 09:50:00 Test Item Value Reference Range Interpretation Comments WBC (test code = WBC) 4.3 3.7-10.4 [facility] CampusWwdetlgVRGMRHHILY2948-46-88 09:50:00 Test Item Value Reference Range Interpretation Comments Hgb (test code = Hgb) 8.2 12.0-16.0 [facility] CampusDzubkchQNJSLAHJWW7078-23-19 09:50:00 Test Item Value Reference Range Interpretation Comments RBC (test code = RBC) 2.66 4.20-5.40 [facility] CampusNypgydhIELWAUQYMB6571-70-40 09:50:00 Test Item Value Reference Range Interpretation Comments MCH (test code = MCH) 30.6 pg 27.0-31.0 [facility] CampusBumfcxdQXKLJMXDIV9603-20-04 09:50:00 Test Item Value Reference Range Interpretation Comments MCV (test code = MCV) 87.5 81.0-99.0 [facility]2014-05-01 09:50:00 Test Item Value Reference Range Interpretation Comments Magnesium Lvl (test code = Magnesium 1.5 1.8-2.4 Lvl) [facility]2014-05-01 09:50:00 Test Item Value Reference Range Interpretation Comments eGFR (test code = eGFR) 104 [facility]2014-05-01 09:50:00 Test Item Value Reference Range Interpretation Comments Chloride Lvl (test code = Chloride Lvl) 104 95-109 [facility]2014-05-01 09:50:00 Test Item Value Reference Range Interpretation Comments Potassium Lvl (test code = Potassium 4.2 3.5-5.1 Lvl) [facility]2014-05-01 09:50:00 Test Item Value Reference Range Interpretation Comments Calcium Lvl (test code = Calcium Lvl) 7.9 8.5-10.5 [facility]2014-05-01 09:50:00 Test Item Value Reference Range Interpretation Comments CO2 (test code = CO2) 27 24-32 [facility]2014-05-01 09:50:00 Test Item Value Reference Range Interpretation Comments Creatinine Lvl (test code = Creatinine 0.7 0.5-1.4 Lvl) [facility]2014-05-01 09:50:00 Test Item Value Reference Range Interpretation Comments BUN (test code = BUN) 6 7-22 [place] 663054-05-01 09:50:00 Test Item Value Reference Range Interpretation Comments Glucose Lvl (test code = Glucose Lvl) 71 70-99 [facility]2014-05-01 09:50:00 Test Item Value Reference Range Interpretation Comments Sodium Lvl (test code = Sodium Lvl) 139 135-145 [facility]2014-05-01 09:50:00 Test Item Value Reference Range Interpretation Comments AGAP (test code = AGAP) 12.2 10.0-20.0 [facility] [id number] 09:50:00 Test Item Value Reference Range Interpretation Comments Segs (test code = Segs) 60.8 45.0-75.0 [facility] CampusXsiprwsXEGYFNGOIJ6155-68-79 09:50:00 Test Item Value Reference Range Interpretation Comments Segs-Bands # (test code = Segs-Bands #) 2.6 1.5-8.1 [place] [id number] 09:50:00 Test Item Value Reference Range Interpretation Comments Basophils (test code = 0.5 See_Comment [Aut omated message] The Basophils) system which ge nerated this result tra nsmitted reference range : <=1.0. The reference r javier was not used to int erpret this result as normal/abnormal . [facility] CampusKtoymanZUBIMFFXCX7699-27-53 09:50:00 Test Item Value Reference Range Interpretation Comments Eosinophils (test code = 3.6 See_Comment [A utomated message] The Eosinophils) system which ge nerated this result tra nsmitted reference range : <=4.0. The reference r javier was not used to int erpret this result as normal/abnormal . [facility] CampusPsqgkmrSMIOTMUUGP7779-28-49 09:50:00 Test Item Value Reference Range Interpretation Comments Monocytes (test code = Monocytes) 13.4 2.0-12.0 [facility] CampusXebbmulVCDBQLISHD7322-36-64 09:50:00 Test Item Value Reference Range Interpretation Comments Lymphocytes (test code = Lymphocytes) 21.7 20.0-40.0 [facility] CampusByqwxnePZBDBCEINU8191-37-08 09:50:00 Test Item Value Reference Range Interpretation Comments Eosinophils # (test code 0.2 See_Comment [A utomated message] The = Eosinophils #) system whic h generated this result tra nsmitted reference range : <=0.5. The reference r javier was not used to int erpret this result as normal/abnormal . [facility] CampusQejygagNXCUISWAGZ5727-17-23 09:50:00 Test Item Value Reference Range Interpretation Comments Monocytes # (test code 0.6 See_Comment [Aut omated message] The = Monocytes #) system which generated this result tra nsmitted reference range : <=0.8. The reference r javier was not used to int erpret this result as normal/abnormal . [facility] CampusOwjfvshCLSXUGWOUN8874-72-58 09:50:00 Test Item Value Reference Range Interpretation Comments Lymphocytes # (test code = Lymphocytes 0.9 1.0-5.5 #) [facility] CampusHwlckalJIUCORJQEL1710-02-04 09:50:00 Test Item Value Reference Range Interpretation Comments Hct (test code = Hct) 23.3 36.0-48.0 [facility] CampusTowfjwlTDMFEEENGZ7949-49-65 09:50:00 Test Item Value Reference Range Interpretation Comments MPV (test code = MPV) 8.0 7.4-10.4 [facility] CampusTenvusoUEWGAIKCEC0074-91-30 09:50:00 Test Item Value Reference Range Interpretation Comments Platelet (test code = Platelet) 177 133-450 [facility] CampusKiiabbmRQFPXWOQKN5049-83-09 09:50:00 Test Item Value Reference Range Interpretation Comments RDW (test code = RDW) 16.1 11.5-14.5 [facility] CampusAudofpzIMMQDQXCCR4238-38-98 09:50:00 Test Item Value Reference Range Interpretation Comments MCHC (test code = MCHC) 35.0 32.0-36.0 [facility] CampusEggoqjgGBWSBSTAVN3808-90-61 09:50:00 Test Item Value Reference Range Interpretation Comments WBC (test code = WBC) 4.3 3.7-10.4 [facility] CampusBwledqwLIVAABNTUA4950-94-78 09:50:00 Test Item Value Reference Range Interpretation Comments Hgb (test code = Hgb) 8.2 12.0-16.0 [facility] CampusOzkhypzZPMVQSTCDX0186-30-31 09:50:00 Test Item Value Reference Range Interpretation Comments RBC (test code = RBC) 2.66 4.20-5.40 [facility] CampusIdnrywrCEJBFCWXXX4216-31-37 09:50:00 Test Item Value Reference Range Interpretation Comments MCH (test code = MCH) 30.6 pg 27.0-31.0 [facility] CampusYrokdbwITTGZSKZVH4409-57-74 09:50:00 Test Item Value Reference Range Interpretation Comments MCV (test code = MCV) 87.5 81.0-99.0 [facility]2014-04-30 09:30:00 Test Item Value Reference Range Interpretation Comments Phosphorus (test code = Phosphorus) 3.1 2.5-4.5 [facility]2014-04-30 09:30:00 Test Item Value Reference Range Interpretation Comments Magnesium Lvl (test code = Magnesium 1.3 1.8-2.4 Lvl) [facility]2014-04-30 09:30:00 Test Item Value Reference Range Interpretation Comments eGFR (test code = eGFR) 77 [facility]2014-04-30 09:30:00 Test Item Value Reference Range Interpretation Comments Creatinine Lvl (test code = Creatinine 0.9 0.5-1.4 Lvl) [facility]2014-04-30 09:30:00 Test Item Value Reference Range Interpretation Comments Glucose Lvl (test code = Glucose Lvl) 67 70-99 [facility]2014-04-30 09:30:00 Test Item Value Reference Range Interpretation Comments BUN (test code = BUN) 11 7-22 [facility]2014-04-30 09:30:00 Test Item Value Reference Range Interpretation Comments CO2 (test code = CO2) 26 24-32 [facility]2014-04-30 09:30:00 Test Item Value Reference Range Interpretation Comments AGAP (test code = AGAP) 12.1 10.0-20.0 [facility]2014-04-30 09:30:00 Test Item Value Reference Range Interpretation Comments Chloride Lvl (test code = Chloride Lvl) 104 95-109 [facility]2014-04-30 09:30:00 Test Item Value Reference Range Interpretation Comments Calcium Lvl (test code = Calcium Lvl) 7.8 8.5-10.5 [facility]2014-04-30 09:30:00 Test Item Value Reference Range Interpretation Comments Potassium Lvl (test code = Potassium 4.1 3.5-5.1 Lvl) [facility]2014-04-30 09:30:00 Test Item Value Reference Range Interpretation Comments Sodium Lvl (test code = Sodium Lvl) 138 135-145 [facility] CampusTfcjzztGSXJAFTESB9027-22-15 09:30:00 Test Item Value Reference Range Interpretation Comments MCHC (test code = MCHC) 34.3 32.0-36.0 [facility] CampusIdnyphySPAJCMEHFL8980-91-57 09:30:00 Test Item Value Reference Range Interpretation Comments RDW (test code = RDW) 16.8 11.5-14.5 [facility] CampusRvvdusqECMGARBUHA6612-80-99 09:30:00 Test Item Value Reference Range Interpretation Comments MCV (test code = MCV) 88.6 81.0-99.0 [facility] CampusImwtbfuNYMRIHEQTJ4639-29-08 09:30:00 Test Item Value Reference Range Interpretation Comments RBC (test code = RBC) 2.80 4.20-5.40 [facility] CampusSopphrnQPTBOMMEAO9249-60-53 09:30:00 Test Item Value Reference Range Interpretation Comments WBC (test code = WBC) 5.1 3.7-10.4 [facility] CampusNrlcvzuRPLUWWNKVG2224-71-04 09:30:00 Test Item Value Reference Range Interpretation Comments Platelet (test code = Platelet) 166 133-450 [facility] CampusSbwgfmvGWOLOZNYYD5418-25-91 09:30:00 Test Item Value Reference Range Interpretation Comments MCH (test code = MCH) 30.4 pg 27.0-31.0 [facility] CampusBtpqpwpSGEVENFRKI8983-19-15 09:30:00 Test Item Value Reference Range Interpretation Comments Hgb (test code = Hgb) 8.5 12.0-16.0 [facility] CampusHeruhzjQKUPXCZJXT6996-72-56 09:30:00 Test Item Value Reference Range Interpretation Comments Hct (test code = Hct) 24.8 36.0-48.0 [facility] CampusVokihdkVVPVCARYTY0595-84-39 09:30:00 Test Item Value Reference Range Interpretation Comments MPV (test code = MPV) 8.1 7.4-10.4 [facility] CampusXxxsgwvDXMADAXMPG8915-08-45 09:30:00 Test Item Value Reference Range Interpretation Comments Basophils # (test code 0.0 See_Comment [Aut omated message] The = Basophils #) system which generated this result tra nsmitted reference range : <=0.2. The reference r javier was not used to int erpret this result as normal/abnormal . [facility] CampusUjrpxbxAHVSTGFNBA4115-77-88 09:30:00 Test Item Value Reference Range Interpretation Comments Eosinophils # (test code 0.1 See_Comment [A utomated message] The = Eosinophils #) system whic h generated this result tra nsmitted reference range : <=0.5. The reference r javier was not used to int erpret this result as normal/abnormal . [facility] CampusYmioawyBBAGWSXSOI5250-51-11 09:30:00 Test Item Value Reference Range Interpretation Comments Monocytes # (test code 0.6 See_Comment [Aut omated message] The = Monocytes #) system which generated this result tra nsmitted reference range : <=0.8. The reference r javier was not used to int erpret this result as normal/abnormal . [facility] CampusTyvawyvBITCEBMZME6865-55-17 09:30:00 Test Item Value Reference Range Interpretation Comments Eosinophils (test code = 1.4 See_Comment [A utomated message] The Eosinophils) system which ge nerated this result tra nsmitted reference range : <=4.0. The reference r javier was not used to int erpret this result as normal/abnormal . [facility] CampusQfhaesoJIWJXRXNTL2426-77-25 09:30:00 Test Item Value Reference Range Interpretation Comments Lymphocytes # (test code = Lymphocytes 1.0 1.0-5.5 #) [facility] CampusNrbjpngTAYKNCEZLF1872-22-93 09:30:00 Test Item Value Reference Range Interpretation Comments Segs-Bands # (test code = Segs-Bands #) 3.3 1.5-8.1 [facility] CampusWtjhaesBUXUDUVFXX1427-55-32 09:30:00 Test Item Value Reference Range Interpretation Comments Segs (test code = Segs) 65.3 45.0-75.0 [facility] CampusMvcqqesCJBXXYUGOT9699-71-66 09:30:00 Test Item Value Reference Range Interpretation Comments Lymphocytes (test code = Lymphocytes) 20.6 20.0-40.0 [facility] CampusXljupudFESMYKOEXT1584-16-93 09:30:00 Test Item Value Reference Range Interpretation Comments RBC Morph (test code = Normal (09/22/13 4:30 RBC Morph) AM) [facility] CampusYocwtqjPPYOGWRCRD1212-19-62 09:30:00 Test Item Value Reference Range Interpretation Comments Basophils (test code = 0.3 See_Comment [Aut omated message] The Basophils) system which ge nerated this result tra nsmitted reference range : <=1.0. The reference r javier was not used to int erpret this result as normal/abnormal . [facility] CampusKcczbcpJTLDYVMVWW3832-25-84 09:30:00 Test Item Value Reference Range Interpretation Comments Plt Morph (test code = Normal (09/22/13 4:30 Plt Morph) AM) [facility] CampusZ[id number] 09:30:00 Test Item Value Reference Range Interpretation Comments Monocytes (test code = Monocytes) 12.4 2.0-12.0 [facility]2014-04-30 09:30:00 Test Item Value Reference Range Interpretation Comments Phosphorus (test code = Phosphorus) 3.1 2.5-4.5 [place] [id number] 09:30:00 Test Item Value Reference Range Interpretation Comments Magnesium Lvl (test code = Magnesium 1.3 1.8-2.4 Lvl) [facility]2014-04-30 09:30:00 Test Item Value Reference Range Interpretation Comments eGFR (test code = eGFR) 77 [facility]2014-04-30 09:30:00 Test Item Value Reference Range Interpretation Comments Creatinine Lvl (test code = Creatinine 0.9 0.5-1.4 Lvl) [facility]2014-04-30 09:30:00 Test Item Value Reference Range Interpretation Comments Glucose Lvl (test code = Glucose Lvl) 67 70-99 [facility]2014-04-30 09:30:00 Test Item Value Reference Range Interpretation Comments BUN (test code = BUN) 11 7-22 [facility]2014-04-30 09:30:00 Test Item Value Reference Range Interpretation Comments CO2 (test code = CO2) 26 24-32 [place] [id number] 09:30:00 Test Item Value Reference Range Interpretation Comments AGAP (test code = AGAP) 12.1 10.0-20.0 [facility]2014-04-30 09:30:00 Test Item Value Reference Range Interpretation Comments Chloride Lvl (test code = Chloride Lvl) 104 95-109 [facility]2014-04-30 09:30:00 Test Item Value Reference Range Interpretation Comments Calcium Lvl (test code = Calcium Lvl) 7.8 8.5-10.5 [facility]2014-04-30 09:30:00 Test Item Value Reference Range Interpretation Comments Potassium Lvl (test code = Potassium 4.1 3.5-5.1 Lvl) [facility]2014-04-30 09:30:00 Test Item Value Reference Range Interpretation Comments Sodium Lvl (test code = Sodium Lvl) 138 135-145 [facility] CampusTesppmdKYBGZOZRSG6108-64-72 09:30:00 Test Item Value Reference Range Interpretation Comments MCHC (test code = MCHC) 34.3 32.0-36.0 [facility] CampusUyceyacCEBLZCFZFP6523-11-49 09:30:00 Test Item Value Reference Range Interpretation Comments RDW (test code = RDW) 16.8 11.5-14.5 [facility] CampusRqkdelkVVDQANGSJP3923-23-41 09:30:00 Test Item Value Reference Range Interpretation Comments MCV (test code = MCV) 88.6 81.0-99.0 [facility] CampusGvszckrDNCWYTWLPK7741-39-44 09:30:00 Test Item Value Reference Range Interpretation Comments RBC (test code = RBC) 2.80 4.20-5.40 [facility] CampusWyevagoWKZXSKICNW5358-06-32 09:30:00 Test Item Value Reference Range Interpretation Comments WBC (test code = WBC) 5.1 3.7-10.4 [facility] CampusUdxhlykQXBYIAKGEP0567-94-89 09:30:00 Test Item Value Reference Range Interpretation Comments Platelet (test code = Platelet) 166 133-450 [facility] CampusPkomzajCIAAGJRQJO9344-71-04 09:30:00 Test Item Value Reference Range Interpretation Comments MCH (test code = MCH) 30.4 pg 27.0-31.0 [facility] CampusPggwwckULIAGXRHKU1730-86-86 09:30:00 Test Item Value Reference Range Interpretation Comments Hgb (test code = Hgb) 8.5 12.0-16.0 [facility] CampusGjunxmmSBKTEFLXXF9202-16-42 09:30:00 Test Item Value Reference Range Interpretation Comments Hct (test code = Hct) 24.8 36.0-48.0 [facility] CampusAnmajozTSTDRDLTHN6011-67-23 09:30:00 Test Item Value Reference Range Interpretation Comments MPV (test code = MPV) 8.1 7.4-10.4 [facility] CampusMevpbrhWOAFSIAVMB3388-02-49 09:30:00 Test Item Value Reference Range Interpretation Comments Basophils # (test code 0.0 See_Comment [Aut omated message] The = Basophils #) system which generated this result tra nsmitted reference range : <=0.2. The reference r javier was not used to int erpret this result as normal/abnormal . [facility] CampusGacfpfhUOZHIOXHKR7368-31-50 09:30:00 Test Item Value Reference Range Interpretation Comments Eosinophils # (test code 0.1 See_Comment [A utomated message] The = Eosinophils #) system whic h generated this result tra nsmitted reference range : <=0.5. The reference r javier was not used to int erpret this result as normal/abnormal . [facility] CampusZdivvhpVMVNHUGSHS1740-92-76 09:30:00 Test Item Value Reference Range Interpretation Comments Monocytes # (test code 0.6 See_Comment [Aut omated message] The = Monocytes #) system which generated this result tra nsmitted reference range : <=0.8. The reference r javier was not used to int erpret this result as normal/abnormal . [facility] CampusFeclancEWCGYTRFLC1555-58-17 09:30:00 Test Item Value Reference Range Interpretation Comments Eosinophils (test code = 1.4 See_Comment [A utomated message] The Eosinophils) system which ge nerated this result tra nsmitted reference range : <=4.0. The reference r javier was not used to int erpret this result as normal/abnormal . [facility] CampusJqoaceaOBVGODKXZU8076-97-30 09:30:00 Test Item Value Reference Range Interpretation Comments Lymphocytes # (test code = Lymphocytes 1.0 1.0-5.5 #) [facility] CampusUyjltvkUHCBMFTOGX9884-27-88 09:30:00 Test Item Value Reference Range Interpretation Comments Segs-Bands # (test code = Segs-Bands #) 3.3 1.5-8.1 [facility] CampusUavigqrPATAESLORO2081-31-02 09:30:00 Test Item Value Reference Range Interpretation Comments Segs (test code = Segs) 65.3 45.0-75.0 [facility] CampusVymlelmSLAKAWXSZJ9479-43-16 09:30:00 Test Item Value Reference Range Interpretation Comments Lymphocytes (test code = Lymphocytes) 20.6 20.0-40.0 [facility] CampusYzipwtcBYBWYFAMBF8254-90-10 09:30:00 Test Item Value Reference Range Interpretation Comments RBC Morph (test code = Normal (09/22/13 4:30 RBC Morph) AM) [facility] CampusWpojycpASPVAKBDIX6611-21-28 09:30:00 Test Item Value Reference Range Interpretation Comments Basophils (test code = 0.3 See_Comment [Aut omated message] The Basophils) system which ge nerated this result tra nsmitted reference range : <=1.0. The reference r javier was not used to int erpret this result as normal/abnormal . [facility] CampusEhafetqYQGPSNCHWF7863-99-63 09:30:00 Test Item Value Reference Range Interpretation Comments Plt Morph (test code = Normal (09/22/13 4:30 Plt Morph) AM) [facility] CampusOjfitjpXZYPETZSWM9817-47-29 09:30:00 Test Item Value Reference Range Interpretation Comments Monocytes (test code = Monocytes) 12.4 2.0-12.0 [facility]2014-04-29 10:00:00 Test Item Value Reference Range Interpretation Comments eGFR (test code = eGFR) 104 [facility]2014-04-29 10:00:00 Test Item Value Reference Range Interpretation Comments Creatinine Lvl (test code = Creatinine 0.7 0.5-1.4 Lvl) [facility]2014-04-29 10:00:00 Test Item Value Reference Range Interpretation Comments Sodium Lvl (test code = Sodium Lvl) 138 135-145 [facility]2014-04-29 10:00:00 Test Item Value Reference Range Interpretation Comments BUN (test code = BUN) 9 7-22 [facility]2014-04-29 10:00:00 Test Item Value Reference Range Interpretation Comments Potassium Lvl (test code = Potassium 4.5 3.5-5.1 Lvl) [facility]2014-04-29 10:00:00 Test Item Value Reference Range Interpretation Comments Chloride Lvl (test code = Chloride Lvl) 103 95-109 [facility]2014-04-29 10:00:00 Test Item Value Reference Range Interpretation Comments Calcium Lvl (test code = Calcium Lvl) 8.2 8.5-10.5 [facility]2014-04-29 10:00:00 Test Item Value Reference Range Interpretation Comments CO2 (test code = CO2) 25 24-32 [facility]2014-04-29 10:00:00 Test Item Value Reference Range Interpretation Comments Glucose Lvl (test code = Glucose Lvl) 88 70-99 [facility]2014-04-29 10:00:00 Test Item Value Reference Range Interpretation Comments AGAP (test code = AGAP) 14.5 10.0-20.0 [facility] CampusJjbrwjoLDKPTMEUPR0639-96-73 10:00:00 Test Item Value Reference Range Interpretation Comments Polychrom (test code = Slight (09/21/13 5:00 Polychrom) AM) [facility] [id number] 10:00:00 Test Item Value Reference Range Interpretation Comments Eosinophils (test code = 0.1 See_Comment [A utomated message] The Eosinophils) system which ge nerated this result tra nsmitted reference range : <=4.0. The reference r javier was not used to int erpret this result as normal/abnormal . [facility] CampusIiukocfNHLSURPNNY8996-18-69 10:00:00 Test Item Value Reference Range Interpretation Comments Segs-Bands # (test code = Segs-Bands #) 6.1 1.5-8.1 [facility] CampusByjfudwFGORRPZFMD7221-80-33 10:00:00 Test Item Value Reference Range Interpretation Comments Basophils (test code = 0.0 See_Comment [Aut omated message] The Basophils) system which ge nerated this result tra nsmitted reference range : <=1.0. The reference r javier was not used to int erpret this result as normal/abnormal . [facility] CampusBxsbvesTWFADYEMNA4415-15-16 10:00:00 Test Item Value Reference Range Interpretation Comments Basophils # (test code 0.0 See_Comment [Aut omated message] The = Basophils #) system which generated this result tra nsmitted reference range : <=0.2. The reference r javier was not used to int erpret this result as normal/abnormal . [facility] CampusV[id number] 10:00:00 Test Item Value Reference Range Interpretation Comments Eosinophils # (test code 0.0 See_Comment [A utomated message] The = Eosinophils #) system whic h generated this result tra nsmitted reference range : <=0.5. The reference r javier was not used to int erpret this result as normal/abnormal . [facility] CampusRexxgacOHCUAVUDNI1183-43-02 10:00:00 Test Item Value Reference Range Interpretation Comments Hypochrom (test code = Slight (09/21/13 5:00 Hypochrom) AM) [facility] CampusLgssyuqMMARWXSGMR3270-98-39 10:00:00 Test Item Value Reference Range Interpretation Comments Lymphocytes # (test code = Lymphocytes 0.7 1.0-5.5 #) [facility] CampusFnaamqyWFRCLJIFTU7725-42-61 10:00:00 Test Item Value Reference Range Interpretation Comments Monocytes # (test code 0.6 See_Comment [Aut omated message] The = Monocytes #) system which generated this result tra nsmitted reference range : <=0.8. The reference r javier was not used to int erpret this result as normal/abnormal . [facility] CampusQadkanzIEAOOXFEVR8728-84-15 10:00:00 Test Item Value Reference Range Interpretation Comments Lymphocytes (test code = Lymphocytes) 9.3 20.0-40.0 [facility] CampusZrzwylrWXGSIMJHXU6613-42-44 10:00:00 Test Item Value Reference Range Interpretation Comments Monocytes (test code = Monocytes) 8.4 2.0-12.0 [facility] CampusHapktdaMLVVPMIJJU1044-44-20 10:00:00 Test Item Value Reference Range Interpretation Comments Plt Morph (test code = Normal (09/21/13 5:00 Plt Morph) AM) [facility] CampusHpkubsbATSTVEODXY3335-23-31 10:00:00 Test Item Value Reference Range Interpretation Comments Segs (test code = Segs) 82.2 45.0-75.0 [facility] CampusDwlyeqwSGZSQGKFBV9841-22-11 10:00:00 Test Item Value Reference Range Interpretation Comments RBC (test code = RBC) 3.01 4.20-5.40 [facility] CampusCykcpxpKCRPKJWTBF5848-05-98 10:00:00 Test Item Value Reference Range Interpretation Comments WBC (test code = WBC) 7.4 3.7-10.4 [facility] CampusTqkxbfkPJJKGDNSIY5759-82-05 10:00:00 Test Item Value Reference Range Interpretation Comments MCH (test code = MCH) 29.5 pg 27.0-31.0 [facility] CampusXkjcsbkLBMTFDGYRK0444-77-46 10:00:00 Test Item Value Reference Range Interpretation Comments Hgb (test code = Hgb) 8.9 12.0-16.0 [facility] CampusXsipsmwHATBDAEXBI5846-43-12 10:00:00 Test Item Value Reference Range Interpretation Comments MCV (test code = MCV) 88.1 81.0-99.0 [facility] CampusPvytapeGLMCTMMPHZ9657-39-93 10:00:00 Test Item Value Reference Range Interpretation Comments Hct (test code = Hct) 26.5 36.0-48.0 [facility] CampusKdniiflHAATIQEEXP6204-05-57 10:00:00 Test Item Value Reference Range Interpretation Comments MCHC (test code = MCHC) 33.5 32.0-36.0 [facility] CampusWictejsRPGCRETYLL2437-70-72 10:00:00 Test Item Value Reference Range Interpretation Comments Platelet (test code = Platelet) 204 133-450 [facility] CampusYlcosufWGWFEUXSXS8944-70-53 10:00:00 Test Item Value Reference Range Interpretation Comments RDW (test code = RDW) 16.6 11.5-14.5 [facility] CampusOfmxyjlARMHWOZPJM1275-16-82 10:00:00 Test Item Value Reference Range Interpretation Comments MPV (test code = MPV) 8.4 7.4-10.4 [facility]2014-04-29 10:00:00 Test Item Value Reference Range Interpretation Comments eGFR (test code = eGFR) 104 [facility]2014-04-29 10:00:00 Test Item Value Reference Range Interpretation Comments Creatinine Lvl (test code = Creatinine 0.7 0.5-1.4 Lvl) [facility]2014-04-29 10:00:00 Test Item Value Reference Range Interpretation Comments Sodium Lvl (test code = Sodium Lvl) 138 135-145 [facility]2014-04-29 10:00:00 Test Item Value Reference Range Interpretation Comments BUN (test code = BUN) 9 7-22 [facility]2014-04-29 10:00:00 Test Item Value Reference Range Interpretation Comments Potassium Lvl (test code = Potassium 4.5 3.5-5.1 Lvl) [facility]2014-04-29 10:00:00 Test Item Value Reference Range Interpretation Comments Chloride Lvl (test code = Chloride Lvl) 103 95-109 [facility]2014-04-29 10:00:00 Test Item Value Reference Range Interpretation Comments Calcium Lvl (test code = Calcium Lvl) 8.2 8.5-10.5 [facility]2014-04-29 10:00:00 Test Item Value Reference Range Interpretation Comments CO2 (test code = CO2) 25 24-32 [facility]2014-04-29 10:00:00 Test Item Value Reference Range Interpretation Comments Glucose Lvl (test code = Glucose Lvl) 88 70-99 [facility]2014-04-29 10:00:00 Test Item Value Reference Range Interpretation Comments AGAP (test code = AGAP) 14.5 10.0-20.0 [facility] CampusOeimpetVKLXBLJSNE9515-98-24 10:00:00 Test Item Value Reference Range Interpretation Comments Polychrom (test code = Slight (09/21/13 5:00 Polychrom) AM) [facility] CampusRpyiejnGHYOVJISWE1145-76-15 10:00:00 Test Item Value Reference Range Interpretation Comments Eosinophils (test code = 0.1 See_Comment [A utomated message] The Eosinophils) system which ge nerated this result tra nsmitted reference range : <=4.0. The reference r javier was not used to int erpret this result as normal/abnormal . [facility] CampusUfjnprhQKVFBLUPXZ6169-94-54 10:00:00 Test Item Value Reference Range Interpretation Comments Segs-Bands # (test code = Segs-Bands #) 6.1 1.5-8.1 [facility] CampusDsstqpxOYQTXWVLNO6509-50-04 10:00:00 Test Item Value Reference Range Interpretation Comments Basophils (test code = 0.0 See_Comment [Aut omated message] The Basophils) system which ge nerated this result tra nsmitted reference range : <=1.0. The reference r javier was not used to int erpret this result as normal/abnormal . [facility] CampusPhzznjwMVEAMGLVWE9473-36-21 10:00:00 Test Item Value Reference Range Interpretation Comments Basophils # (test code 0.0 See_Comment [Aut omated message] The = Basophils #) system which generated this result tra nsmitted reference range : <=0.2. The reference r javier was not used to int erpret this result as normal/abnormal . [facility] CampusTxmasgaAQTUVGXSCL3042-93-24 10:00:00 Test Item Value Reference Range Interpretation Comments Eosinophils # (test code 0.0 See_Comment [A utomated message] The = Eosinophils #) system whic h generated this result tra nsmitted reference range : <=0.5. The reference r javier was not used to int erpret this result as normal/abnormal . [facility] CampusDogwhggIYJIXESIOL9279-50-16 10:00:00 Test Item Value Reference Range Interpretation Comments Hypochrom (test code = Slight (09/21/13 5:00 Hypochrom) AM) [facility] CampusBcnpaxtSYWSVUYFSS2537-94-00 10:00:00 Test Item Value Reference Range Interpretation Comments Lymphocytes # (test code = Lymphocytes 0.7 1.0-5.5 #) [facility] CampusBjmfmmaQDHLIXMRVJ6629-95-03 10:00:00 Test Item Value Reference Range Interpretation Comments Monocytes # (test code 0.6 See_Comment [Aut omated message] The = Monocytes #) system which generated this result tra nsmitted reference range : <=0.8. The reference r javier was not used to int erpret this result as normal/abnormal . [facility] CampusYzlgsrvQIVGLVIEGS9256-79-87 10:00:00 Test Item Value Reference Range Interpretation Comments Lymphocytes (test code = Lymphocytes) 9.3 20.0-40.0 [facility] CampusQzvfwbfMEVZMMKOKV5031-52-56 10:00:00 Test Item Value Reference Range Interpretation Comments Monocytes (test code = Monocytes) 8.4 2.0-12.0 [facility] CampusDmcmzzrYAIKSDIRLO9150-37-29 10:00:00 Test Item Value Reference Range Interpretation Comments Plt Morph (test code = Normal (09/21/13 5:00 Plt Morph) AM) [facility] CampusHlhtlhtFLDYLVLGVX6489-49-29 10:00:00 Test Item Value Reference Range Interpretation Comments Segs (test code = Segs) 82.2 45.0-75.0 [facility] CampusNluofypNQVFZGJXKL5213-23-67 10:00:00 Test Item Value Reference Range Interpretation Comments RBC (test code = RBC) 3.01 4.20-5.40 [facility] CampusOjeejsbEYTFWWRUOR5562-27-92 10:00:00 Test Item Value Reference Range Interpretation Comments WBC (test code = WBC) 7.4 3.7-10.4 [facility] CampusIjefadhUCSMJIWCUV2230-63-06 10:00:00 Test Item Value Reference Range Interpretation Comments MCH (test code = MCH) 29.5 pg 27.0-31.0 [facility] CampusNybaftoAVWZTEMBCM3788-07-02 10:00:00 Test Item Value Reference Range Interpretation Comments Hgb (test code = Hgb) 8.9 12.0-16.0 [facility] Camp[id number] 10:00:00 Test Item Value Reference Range Interpretation Comments MCV (test code = MCV) 88.1 81.0-99.0 [facility] CampusAjgmnocBZJMHPDBOM5748-46-69 10:00:00 Test Item Value Reference Range Interpretation Comments Hct (test code = Hct) 26.5 36.0-48.0 [facility] CampusNnvsyfcNEDLXJNCXX5860-85-12 10:00:00 Test Item Value Reference Range Interpretation Comments MCHC (test code = MCHC) 33.5 32.0-36.0 [facility] CampusIaeojwwUPNDQLTKUF3552-88-61 10:00:00 Test Item Value Reference Range Interpretation Comments Platelet (test code = Platelet) 204 133-450 [facility] CampusBlbibpnQCIYBWBHTT7839-76-74 10:00:00 Test Item Value Reference Range Interpretation Comments RDW (test code = RDW) 16.6 11.5-14.5 [facility] CampusQuifdllPYWIRYDYWA0481-62-21 10:00:00 Test Item Value Reference Range Interpretation Comments MPV (test code = MPV) 8.4 7.4-10.4 [facility] [id number] 19:10:00 Test Item Value Reference Range Interpretation Comments Antibody Scrn (test Negative (09/20/13 2:10 code = Antibody Scrn) PM) [facility] [id number] 19:10:00 Test Item Value Reference Range Interpretation Comments ABO/Rh (test code = ABO/Rh) B NEG [facility] [id number] 19:10:00 Test Item Value Reference Range Interpretation Comments Antibody Scrn (test Negative (09/20/13 2:10 code = Antibody Scrn) PM) [facility] [id number] 19:10:00 Test Item Value Reference Range Interpretation Comments ABO/Rh (test code = ABO/Rh) B NEG [facility] [id number] 10:10:00 Test Item Value Reference Range Interpretation Comments AST (test code = AST) 9 See_Comment [Auto mated message] The system which ge nerated this result transmit max reference range : <=37. The reference range was not used to interpr et this result as luis l/abnormal. [facility] [id number] 10:10:00 Test Item Value Reference Range Interpretation Comments Albumin Lvl (test code = Albumin Lvl) 2.7 3.5-5.0 [facility]2014-04-27 10:10:00 Test Item Value Reference Range Interpretation Comments Total Protein (test code = Total 5.1 6.4-8.4 Protein) [facility]2014-04-27 10:10:00 Test Item Value Reference Range Interpretation Comments Alk Phos (test code = Alk Phos) 63 39-136 [facility] [id number] 10:10:00 Test Item Value Reference Range Interpretation Comments ALT (test code = ALT) 11 See_Comment [Auto mated message] The system which ge nerated this result transmit max reference range : <=65. The reference range was not used to interpr et this result as luis l/abnormal. [facility] [id number] 10:10:00 Test Item Value Reference Range Interpretation Comments Bili Total (test code = Bili Total) 0.7 0.2-1.3 [facility]2014-04-27 10:10:00 Test Item Value Reference Range Interpretation Comments B/C Ratio (test code = B/C Ratio) 9 6-25 [facility] [id number] 10:10:00 Test Item Value Reference Range Interpretation Comments Globulin (test code = Globulin) 2.4 2.0-4.0 [facility]2014-04-27 10:10:00 Test Item Value Reference Range Interpretation Comments A/G Ratio (test code = A/G Ratio) 1.1 0.7-1.6 [id number] 10:10:00 Test Item Value Reference Range Interpretation Comments Basophils # (test code 0.0 See_Comment [Aut omated message] The = Basophils #) system which generated this result tra nsmitted reference range : <=0.2. The reference r javier was not used to int erpret this result as normal/abnormal . [facility] [id number] 10:10:00 Test Item Value Reference Range Interpretation Comments AST (test code = AST) 9 See_Comment [Auto mated message] The system which ge nerated this result transmit max reference range : <=37. The reference range was not used to interpr et this result as luis l/abnormal. [facility] [id number] 10:10:00 Test Item Value Reference Range Interpretation Comments Albumin Lvl (test code = Albumin Lvl) 2.7 3.5-5.0 [facility] [id number] 10:10:00 Test Item Value Reference Range Interpretation Comments Total Protein (test code = Total 5.1 6.4-8.4 Protein) [facility]2014-04-27 10:10:00 Test Item Value Reference Range Interpretation Comments Alk Phos (test code = Alk Phos) 63 39-136 [facility] [id number] 10:10:00 Test Item Value Reference Range Interpretation Comments ALT (test code = ALT) 11 See_Comment [Auto mated message] The system which ge nerated this result transmit max reference range : <=65. The reference range was not used to interpr et this result as luis l/abnormal. [facility] [id number] 10:10:00 Test Item Value Reference Range Interpretation Comments Bili Total (test code = Bili Total) 0.7 0.2-1.3 [facility] [id number] 10:10:00 Test Item Value Reference Range Interpretation Comments B/C Ratio (test code = B/C Ratio) 9 6-25 [facility] [id number] 10:10:00 Test Item Value Reference Range Interpretation Comments Globulin (test code = Globulin) 2.4 2.0-4.0 [facility] [id number] 10:10:00 Test Item Value Reference Range Interpretation Comments A/G Ratio (test code = A/G Ratio) 1.1 0.7-1.6 [facility] [id number] 10:10:00 Test Item Value Reference Range Interpretation Comments Basophils # (test code 0.0 See_Comment [Aut omated message] The = Basophils #) system which generated this result tra nsmitted reference range : <=0.2. The reference r javier was not used to int erpret this result as normal/abnormal . [facility]2014-04-23 10:00:00 Test Item Value Reference Range Interpretation Comments AST (test code = AST) 10 See_Comment [Auto mated message] The system which ge nerated this result transmit max reference range : <=37. The reference range was not used to interpr et this result as luis l/abnormal. [facility]2014-04-23 10:00:00 Test Item Value Reference Range Interpretation Comments ALT (test code = ALT) 10 See_Comment [Auto mated message] The system which ge nerated this result transmit max reference range : <=65. The reference range was not used to interpr et this result as luis l/abnormal. [facility]2014-04-23 10:00:00 Test Item Value Reference Range Interpretation Comments Albumin Lvl (test code = Albumin Lvl) 2.6 3.5-5.0 [facility]2014-04-23 10:00:00 Test Item Value Reference Range Interpretation Comments Alk Phos (test code = Alk Phos) 58 39-136 [facility]2014-04-23 10:00:00 Test Item Value Reference Range Interpretation Comments Bili Total (test code = Bili Total) 0.5 0.2-1.3 [facility]2014-04-23 10:00:00 Test Item Value Reference Range Interpretation Comments Total Protein (test code = Total 4.8 6.4-8.4 Protein) [facility]2014-04-23 10:00:00 Test Item Value Reference Range Interpretation Comments A/G Ratio (test code = A/G Ratio) 1.2 0.7-1.6 [facility]2014-04-23 10:00:00 Test Item Value Reference Range Interpretation Comments Globulin (test code = Globulin) 2.2 2.0-4.0 [facility]2014-04-23 10:00:00 Test Item Value Reference Range Interpretation Comments B/C Ratio (test code = B/C Ratio) 7 6-25 [facility]2014-04-23 10:00:00 Test Item Value Reference Range Interpretation Comments Phosphorus (test code = Phosphorus) 3.8 2.5-4.5 [facility]2014-04-23 10:00:00 Test Item Value Reference Range Interpretation Comments Magnesium Lvl (test code = Magnesium 1.5 1.8-2.4 Lvl) [facility]2014-04-23 10:00:00 Test Item Value Reference Range Interpretation Comments AST (test code = AST) 10 See_Comment [Auto mated message] The system which ge nerated this result transmit max reference range : <=37. The reference range was not used to interpr et this result as luis l/abnormal. [facility]2014-04-23 10:00:00 Test Item Value Reference Range Interpretation Comments ALT (test code = ALT) 10 See_Comment [Auto mated message] The system which ge nerated this result transmit max reference range : <=65. The reference range was not used to interpr et this result as luis l/abnormal. [facility]2014-04-23 10:00:00 Test Item Value Reference Range Interpretation Comments Albumin Lvl (test code = Albumin Lvl) 2.6 3.5-5.0 [facility]2014-04-23 10:00:00 Test Item Value Reference Range Interpretation Comments Alk Phos (test code = Alk Phos) 58 39-136 [facility]2014-04-23 10:00:00 Test Item Value Reference Range Interpretation Comments Bili Total (test code = Bili Total) 0.5 0.2-1.3 [facility]2014-04-23 10:00:00 Test Item Value Reference Range Interpretation Comments Total Protein (test code = Total 4.8 6.4-8.4 Protein) [facility]2014-04-23 10:00:00 Test Item Value Reference Range Interpretation Comments A/G Ratio (test code = A/G Ratio) 1.2 0.7-1.6 [facility]2014-04-23 10:00:00 Test Item Value Reference Range Interpretation Comments Globulin (test code = Globulin) 2.2 2.0-4.0 [facility]2014-04-23 10:00:00 Test Item Value Reference Range Interpretation Comments B/C Ratio (test code = B/C Ratio) 7 6-25 [facility]2014-04-23 10:00:00 Test Item Value Reference Range Interpretation Comments Phosphorus (test code = Phosphorus) 3.8 2.5-4.5 [facility]2014-04-23 10:00:00 Test Item Value Reference Range Interpretation Comments Magnesium Lvl (test code = Magnesium 1.5 1.8-2.4 Lvl) [facility] [id number] 09:30:00 Test Item Value Reference Range Interpretation Comments Elliptocyte (test code = Slight *ABN*(09/14/13 Elliptocyte) 4:30 AM) [facility] [id number] 09:30:00 Test Item Value Reference Range Interpretation Comments Hypochrom (test code = Slight (09/14/13 4:30 Hypochrom) AM) [facility] [id number] 09:30:00 Test Item Value Reference Range Interpretation Comments Plt Morph (test code = Normal (09/14/13 4:30 Plt Morph) AM) [facility] [id number] 09:30:00 Test Item Value Reference Range Interpretation Comments Elliptocyte (test code = Slight *ABN*(09/14/13 Elliptocyte) 4:30 AM) [facility] [id number] 09:30:00 Test Item Value Reference Range Interpretation Comments Hypochrom (test code = Slight (09/14/13 4:30 Hypochrom) AM) [facility] [id number] 09:30:00 Test Item Value Reference Range Interpretation Comments Plt Morph (test code = Normal (09/14/13 4:30 Plt Morph) AM) [facility]Whistle[facility] [id number] 00:30:00 Test Item Value Reference Range Interpretation Comments ABO/Rh (test code = ABO/Rh) B NEG [facility]WowOwow [id number] 00:30:00 Test Item Value Reference Range Interpretation Comments Antibody Scrn (test Negative (09/13/13 7:30 code = Antibody Scrn) PM) [facility] [place] [place] [id number] 00:30:00 Test Item Value Reference Range Interpretation Comments ABO/Rh (test code = ABO/Rh) B NEG [facility] [place] [place] [id number] 00:30:00 Test Item Value Reference Range Interpretation Comments Antibody Scrn (test Negative (09/13/13 7:30 code = Antibody Scrn) PM) [facility] AND [id number] 20:40:40 Test Item Value Reference Range Interpretation Comments UA Urobilinogen (test code = UA <=1.0 mg/dL 0.1-1.0 Urobilinogen) [facility] AND [id number] 20:40:40 Test Item Value Reference Range Interpretation Comments UA Ketones (test code = UA Ketones) TR [facility] AND [id number] 20:40:40 Test Item Value Reference Range Interpretation Comments UA Bacteria (test code = UA Occasional /HPF Bacteria) [facility] AND [id number] 20:40:40 Test Item Value Reference Range Interpretation Comments UA Mucus (test code = UA Mucus) Many /LPF [facility] AND [id number] 20:40:40 Test Item Value Reference Range Interpretation Comments UA RBC (test code = 7 See_Comment [Automa max message] The UA RBC) system which ge nerated this result transmit max reference range : <=2. The reference range was not used to interpr et this result as luis l/abnormal. [facility] AND [id number] 20:40:40 Test Item Value Reference Range Interpretation Comments UA WBC (test code = 8 See_Comment [Automa max message] The UA WBC) system which ge nerated this result transmit max reference range : <=5. The reference range was not used to interpr et this result as luis l/abnormal. [facility] AND [id number] 20:40:40 Test Item Value Reference Range Interpretation Comments UA Glucose (test code = UA Negative mg/dL Glucose) [facility] AND [id number] 20:40:40 Test Item Value Reference Range Interpretation Comments UA Bili (test code = Negative *NA*(4/21/14 UA Bili) 3:40 PM) [facility] AND [id number] 20:40:40 Test Item Value Reference Range Interpretation Comments UA pH (test code = UA pH) 6.0 5.0-8.0 [facility] AND [id number] 20:40:40 Test Item Value Reference Range Interpretation Comments UA Leuk Est (test code Small *ABN*(09/13/13 = UA Leuk Est) 3:40 PM) [facility] AND [id number] 20:40:40 Test Item Value Reference Range Interpretation Comments UA Sq Epi (test code = UA Sq Moderate /LPF Epi) [facility] AND [id number] 20:40:40 Test Item Value Reference Range Interpretation Comments UA Protein (test code = UA Protein) 30 mg/dL [facility] AND [id number] 20:40:40 Test Item Value Reference Range Interpretation Comments UA Blood (test code = Negative (09/13/13 3:40 UA Blood) PM) [facility] AND [id number] 20:40:40 Test Item Value Reference Range Interpretation Comments UA Nitrite (test code Negative (09/13/13 3:40 = UA Nitrite) PM) [facility] AND [id number] 20:40:40 Test Item Value Reference Range Interpretation Comments UA Color (test code = Yellow *NA*(09/13/13 UA Color) 3:40 PM) [facility] AND [id number] 20:40:40 Test Item Value Reference Range Interpretation Comments UA Spec Grav (test code = UA Spec Grav) 1.019 [facility] AND [id number] 20:40:40 Test Item Value Reference Range Interpretation Comments UA Turbidity (test code Slight *ABN*(09/13/13 = UA Turbidity) 3:40 PM) [facility] AND [id number] 20:40:40 Test Item Value Reference Range Interpretation Comments UA Urobilinogen (test code = UA <=1.0 mg/dL 0.1-1.0 Urobilinogen) [facility] AND [id number] 20:40:40 Test Item Value Reference Range Interpretation Comments UA Ketones (test code = UA Ketones) TR [facility] AND [id number] 20:40:40 Test Item Value Reference Range Interpretation Comments UA Bacteria (test code = UA Occasional /HPF Bacteria) [facility] AND [id number] 20:40:40 Test Item Value Reference Range Interpretation Comments UA Mucus (test code = UA Mucus) Many /LPF [facility] AND [id number] 20:40:40 Test Item Value Reference Range Interpretation Comments UA RBC (test code = 7 See_Comment [Automa max message] The UA RBC) system which ge nerated this result transmit max reference range : <=2. The reference range was not used to interpr et this result as luis l/abnormal. [facility] AND [id number] 20:40:40 Test Item Value Reference Range Interpretation Comments UA WBC (test code = 8 See_Comment [Automa max message] The UA WBC) system which ge nerated this result transmit max reference range : <=5. The reference range was not used to interpr et this result as luis l/abnormal. [facility] AND [id number] 20:40:40 Test Item Value Reference Range Interpretation Comments UA Glucose (test code = UA Negative mg/dL Glucose) [facility] AND [id number] 20:40:40 Test Item Value Reference Range Interpretation Comments UA Bili (test code = Negative *NA*(09/13/13 UA Bili) 3:40 PM) [facility] AND [id number] 20:40:40 Test Item Value Reference Range Interpretation Comments UA pH (test code = UA pH) 6.0 5.0-8.0 [facility] AND [id number] 20:40:40 Test Item Value Reference Range Interpretation Comments UA Leuk Est (test code Small *ABN*(09/13/13 = UA Leuk Est) 3:40 PM) [facility] AND [id number] 20:40:40 Test Item Value Reference Range Interpretation Comments UA Sq Epi (test code = UA Sq Moderate /LPF Epi) [facility] AND [id number] 20:40:40 Test Item Value Reference Range Interpretation Comments UA Protein (test code = UA Protein) 30 mg/dL [facility] AND [id number] 20:40:40 Test Item Value Reference Range Interpretation Comments UA Blood (test code = Negative (09/13/13 3:40 UA Blood) PM) [facility] [id number] 20:40:40 Test Item Value Reference Range Interpretation Comments UA Nitrite (test code Negative (09/13/13 3:40 = UA Nitrite) PM) [facility] [id number] 20:40:40 Test Item Value Reference Range Interpretation Comments UA Color (test code = Yellow *NA*(09/13/13 UA Color) 3:40 PM) [facility] [id number] 20:40:40 Test Item Value Reference Range Interpretation Comments UA Spec Grav (test code = UA Spec Grav) 1.019 [facility] AND [id number] 20:40:40 Test Item Value Reference Range Interpretation Comments UA Turbidity (test code Slight *ABN*(09/13/13 = UA Turbidity) 3:40 PM) [facility] [id number] 20:40:18 Test Item Value Reference Range Interpretation Comments [facility] HIV 4th GEN (test Negative (09/13/13 3:40 code = CDC HIV 4th PM) GEN) [id number] 20:40:18 Test Item Value Reference Range Interpretation Comments [facility] HIV 4th GEN (test Negative (09/13/13 3:40 code = CDC HIV 4th PM) GEN) [facility] [id number] 20:40:00 Test Item Value Reference Range Interpretation Comments Lipase Lvl (test code = Lipase Lvl) 123 73-393 [facility] [id number] 20:40:00 Test Item Value Reference Range Interpretation Comments A/G Ratio (test code = A/G Ratio) 1.2 0.7-1.6 [facility] [id number] 20:40:00 Test Item Value Reference Range Interpretation Comments Globulin (test code = Globulin) 2.5 2.0-4.0 [facility] [id number] 20:40:00 Test Item Value Reference Range Interpretation Comments B/C Ratio (test code = B/C Ratio) 9 6-25 [facility] [id number] 20:40:00 Test Item Value Reference Range Interpretation Comments AST (test code = AST) 10 See_Comment [Auto mated message] The system which ge nerated this result transmit max reference range : <=37. The reference range was not used to interpr et this result as luis l/abnormal. [facility]2014-04-21 20:40:00 Test Item Value Reference Range Interpretation Comments Total Protein (test code = Total 5.6 6.4-8.4 Protein) [facility]2014-04-21 20:40:00 Test Item Value Reference Range Interpretation Comments ALT (test code = ALT) 10 See_Comment [Auto mated message] The system which ge nerated this result transmit max reference range : <=65. The reference range was not used to interpr et this result as luis l/abnormal. [facility]2014-04-21 20:40:00 Test Item Value Reference Range Interpretation Comments Albumin Lvl (test code = Albumin Lvl) 3.1 3.5-5.0 [facility]2014-04-21 20:40:00 Test Item Value Reference Range Interpretation Comments Alk Phos (test code = Alk Phos) 66 39-136 [facility]2014-04-21 20:40:00 Test Item Value Reference Range Interpretation Comments Bili Total (test code = Bili Total) 0.4 0.2-1.3 [facility] [id number] 20:40:00 Test Item Value Reference Range Interpretation Comments PTT (test code = PTT) 34.7 s 22.9-35.8 [facility] [id number] 20:40:00 Test Item Value Reference Range Interpretation Comments PT (test code = PT) 12.8 s 12.0-14.7 [facility] [id number] 20:40:00 Test Item Value Reference Range Interpretation Comments INR (test code = INR) 0.97 0.85-1.17 [facility]2014-04-21 20:40:00 Test Item Value Reference Range Interpretation Comments Lipase Lvl (test code = Lipase Lvl) 123 73-393 [facility]2014-04-21 20:40:00 Test Item Value Reference Range Interpretation Comments A/G Ratio (test code = A/G Ratio) 1.2 0.7-1.6 [place] [id number] 20:40:00 Test Item Value Reference Range Interpretation Comments Globulin (test code = Globulin) 2.5 2.0-4.0 [facility]2014-04-21 20:40:00 Test Item Value Reference Range Interpretation Comments B/C Ratio (test code = B/C Ratio) 9 6-25 [facility]2014-04-21 20:40:00 Test Item Value Reference Range Interpretation Comments AST (test code = AST) 10 See_Comment [Auto mated message] The system which ge nerated this result transmit max reference range : <=37. The reference range was not used to interpr et this result as luis l/abnormal. [facility]2014-04-21 20:40:00 Test Item Value Reference Range Interpretation Comments Total Protein (test code = Total 5.6 6.4-8.4 Protein) [facility]2014-04-21 20:40:00 Test Item Value Reference Range Interpretation Comments ALT (test code = ALT) 10 See_Comment [Auto mated message] The system which ge nerated this result transmit max reference range : <=65. The reference range was not used to interpr et this result as luis l/abnormal. [facility]2014-04-21 20:40:00 Test Item Value Reference Range Interpretation Comments Albumin Lvl (test code = Albumin Lvl) 3.1 3.5-5.0 [facility]2014-04-21 20:40:00 Test Item Value Reference Range Interpretation Comments Alk Phos (test code = Alk Phos) 66 39-136 [facility]2014-04-21 20:40:00 Test Item Value Reference Range Interpretation Comments Bili Total (test code = Bili Total) 0.4 0.2-1.3 [facility] [id number] 20:40:00 Test Item Value Reference Range Interpretation Comments PTT (test code = PTT) 34.7 s 22.9-35.8 [facility] [id number] 20:40:00 Test Item Value Reference Range Interpretation Comments PT (test code = PT) 12.8 s 12.0-14.7 [facility] CampusByqrsvaKOBILZVDKT3626-06-84 20:40:00 Test Item Value Reference Range Interpretation Comments INR (test code = INR) 0.97 0.85-1.17 [facility] AND [id number] 19:20:00 Test Item Value Reference Range Interpretation Comments Occult Bld Stl (test Negative (09/13/13 2:20 code = Occult Bld Stl) PM) [facility] AND [id number] 19:20:00 Test Item Value Reference Range Interpretation Comments Occult Bld Stl (test Negative (09/13/13 2:20 code = Occult Bld Stl) PM) [facility] [id number] 09:50:00 Test Item Value Reference Range Interpretation Comments Eosinophils # (test code 0.1 See_Comment N [A utomated message] The = Eosinophils #) system whic h generated this result tra nsmitted reference range : <=0.5. The reference r javier was not used to int erpret this result as normal/abnormal . [facility] [id number] 09:50:00 Test Item Value Reference Range Interpretation Comments Segs-Bands # (test code = Segs-Bands #) 3.8 1.5-8.1 N [facility] [id number] 09:50:00 Test Item Value Reference Range Interpretation Comments Lymphocytes # (test code = Lymphocytes 1.3 1.0-5.5 N #) [facility] [id number] 09:50:00 Test Item Value Reference Range Interpretation Comments Monocytes # (test code 0.5 See_Comment N [Aut omated message] The = Monocytes #) system which generated this result tra nsmitted reference range : <=0.8. The reference r javier was not used to int erpret this result as normal/abnormal . [facility] [id number] 09:50:00 Test Item Value Reference Range Interpretation Comments Segs (test code = Segs) 66.3 45.0-75.0 N [facility] [id number] 09:50:00 Test Item Value Reference Range Interpretation Comments Monocytes (test code = Monocytes) 9.5 2.0-12.0 N [facility] [id number] 09:50:00 Test Item Value Reference Range Interpretation Comments Lymphocytes (test code = Lymphocytes) 22.1 20.0-40.0 N [facility] [id number] 09:50:00 Test Item Value Reference Range Interpretation Comments Basophils (test code = 0.2 See_Comment N [Aut omated message] The Basophils) system which ge nerated this result tra nsmitted reference range : <=1.0. The reference r javier was not used to int erpret this result as normal/abnormal . [facility] [id number] 09:50:00 Test Item Value Reference Range Interpretation Comments Eosinophils (test code = 1.9 See_Comment N [A utomated message] The Eosinophils) system which ge nerated this result tra nsmitted reference range : <=4.0. The reference r javier was not used to int erpret this result as normal/abnormal . [facility] [id number] 09:50:00 Test Item Value Reference Range Interpretation Comments MCV (test code = MCV) 88.9 81.0-99.0 N [facility] CampusLfbscgaVDCXMLBGFX7570-88-01 09:50:00 Test Item Value Reference Range Interpretation Comments RDW (test code = RDW) 15.3 11.5-14.5 H [facility] [facility] CampusAeukeskZMSMHISCEO7860-93-04 09:50:00 Test Item Value Reference Range Interpretation Comments MCHC (test code = MCHC) 34.1 32.0-36.0 N [facility] CampusErnyliyWADJZGTONT9045-48-89 09:50:00 Test Item Value Reference Range Interpretation Comments Platelet (test code = Platelet) 161 133-450 N [facility] CampusDzqwmnsXTMFPZAIIQ0000-27-39 09:50:00 Test Item Value Reference Range Interpretation Comments MPV (test code = MPV) 7.9 7.4-10.4 N [facility] CampusJgkprniFPEBTSCMRH6619-16-23 09:50:00 Test Item Value Reference Range Interpretation Comments MCH (test code = MCH) 30.3 pg 27.0-31.0 N [facility] CampusNorbpzwLCIYGYTUKP7271-35-29 09:50:00 Test Item Value Reference Range Interpretation Comments Hct (test code = Hct) 30.0 36.0-48.0 L [facility] CampusEhzlpghVVLWZMUFLP7000-41-52 09:50:00 Test Item Value Reference Range Interpretation Comments WBC (test code = WBC) 5.8 3.7-10.4 N [facility] CampusXrzgvueLNZCSJJNEO3878-15-32 09:50:00 Test Item Value Reference Range Interpretation Comments Hgb (test code = Hgb) 10.2 12.0-16.0 L [facility] CampusAwomsdlANPSOAQFHW2583-22-81 09:50:00 Test Item Value Reference Range Interpretation Comments RBC (test code = RBC) 3.38 4.20-5.40 L [facility] CampusFftcmnvEIWUPRRUID5099-24-49 09:50:00 Test Item Value Reference Range Interpretation Comments Eosinophils # (test code 0.1 See_Comment N [A utomated message] The = Eosinophils #) system whic h generated this result tra nsmitted reference range : <=0.5. The reference r javier was not used to int erpret this result as normal/abnormal . [facility] CampusGjqowejDLZZBEOFZE8681-42-20 09:50:00 Test Item Value Reference Range Interpretation Comments Segs-Bands # (test code = Segs-Bands #) 3.8 1.5-8.1 N [facility] CampusFgwxnhcCPMBPUBARE5034-12-98 09:50:00 Test Item Value Reference Range Interpretation Comments Lymphocytes # (test code = Lymphocytes 1.3 1.0-5.5 N #) [facility] CampusBasgtveNXNNJPNFDR7921-53-51 09:50:00 Test Item Value Reference Range Interpretation Comments Monocytes # (test code 0.5 See_Comment N [Aut omated message] The = Monocytes #) system which generated this result tra nsmitted reference range : <=0.8. The reference r javier was not used to int erpret this result as normal/abnormal . [facility] CampusVadgrsvPWEDNAQPGA5594-07-66 09:50:00 Test Item Value Reference Range Interpretation Comments Segs (test code = Segs) 66.3 45.0-75.0 N [facility] CampusXyteqefTYKOVJKNES7077-86-32 09:50:00 Test Item Value Reference Range Interpretation Comments Monocytes (test code = Monocytes) 9.5 2.0-12.0 N [facility] CampusGuuemtjLAQYOTYDOM3060-50-55 09:50:00 Test Item Value Reference Range Interpretation Comments Lymphocytes (test code = Lymphocytes) 22.1 20.0-40.0 N [facility] CampusIkvceixNCZUEXOPDX9683-32-86 09:50:00 Test Item Value Reference Range Interpretation Comments Basophils (test code = 0.2 See_Comment N [Aut omated message] The Basophils) system which ge nerated this result tra nsmitted reference range : <=1.0. The reference r javier was not used to int erpret this result as normal/abnormal . [facility] CampusAatqwelXBVLUWUSVG4057-02-06 09:50:00 Test Item Value Reference Range Interpretation Comments Eosinophils (test code = 1.9 See_Comment N [A utomated message] The Eosinophils) system which ge nerated this result tra nsmitted reference range : <=4.0. The reference r javier was not used to int erpret this result as normal/abnormal . [facility] CampusDtyxwwlENLEZYSGBQ4416-24-40 09:50:00 Test Item Value Reference Range Interpretation Comments MCV (test code = MCV) 88.9 81.0-99.0 N [facility] CampusEyrajxbUOLTSOMXMY5878-61-31 09:50:00 Test Item Value Reference Range Interpretation Comments RDW (test code = RDW) 15.3 11.5-14.5 H [facility] CampusSlxnpinFFNCQUQQEY4562-38-35 09:50:00 Test Item Value Reference Range Interpretation Comments MCHC (test code = MCHC) 34.1 32.0-36.0 N [facility] CampusOlzmfewZLAZDILRPR5996-28-85 09:50:00 Test Item Value Reference Range Interpretation Comments Platelet (test code = Platelet) 161 133-450 N [facility] CampusJsfjcrcKQSVIKVVGF7249-82-10 09:50:00 Test Item Value Reference Range Interpretation Comments MPV (test code = MPV) 7.9 7.4-10.4 N [facility] CampusDmkarphQXZTBLOWKH0165-62-12 09:50:00 Test Item Value Reference Range Interpretation Comments MCH (test code = MCH) 30.3 pg 27.0-31.0 N [facility] CampusDmgchhtGIKMFLYGNN4855-84-11 09:50:00 Test Item Value Reference Range Interpretation Comments Hct (test code = Hct) 30.0 36.0-48.0 L [facility] CampusLhyoocrFHMZJELONY7030-10-97 09:50:00 Test Item Value Reference Range Interpretation Comments WBC (test code = WBC) 5.8 3.7-10.4 N [facility] CampusYqabczeLQTWSUMPIY7592-46-03 09:50:00 Test Item Value Reference Range Interpretation Comments Hgb (test code = Hgb) 10.2 12.0-16.0 L [facility] CampusGmbemvdFHIWJCPSDI3083-55-97 09:50:00 Test Item Value Reference Range Interpretation Comments RBC (test code = RBC) 3.38 4.20-5.[address] [facility] [place] [place] BANK [id number] 17:54:00 Test Item Value Reference Range Interpretation Comments RBC product (test code Product available N = RBC product) (12/08/2011 12:54:00) [facility] [place] [place] BANK [id number] 17:54:00 Test Item Value Reference Range Interpretation Comments RBC product (test code Product available N = RBC product) (12/08/2011 12:54:00) [facility] [place] [place] [employer] [id number] 15:10:00 Test Item Value Reference Range Interpretation Comments Antibody Scrn (test Negative (12/08/2011 N code = Antibody Scrn) 10:10:00) [facility] [id number] 15:10:00 Test Item Value Reference Range Interpretation Comments ABO/Rh (test code = ABO/Rh) B NEG [facility] [id number] 15:10:00 Test Item Value Reference Range Interpretation Comments Antibody Scrn (test Negative (12/08/2011 N code = Antibody Scrn) 10:10:00) [facility] [place] [place] [employer] [id number] 15:10:00 Test Item Value Reference Range Interpretation Comments ABO/Rh (test code = ABO/Rh) B NEG [facility] CampusXpozwnzSPWZQWDDSW9499-27-59 10:00:00 Test Item Value Reference Range Interpretation Comments Lymphocytes (test code = Lymphocytes) 8.0 20.0-40.0 L [facility] CampusIpwahhlDYYKRYUGQV3780-73-25 10:00:00 Test Item Value Reference Range Interpretation Comments Bands (test code = 12.0 See_Comment H [Automat ed message] The Bands) system which ge nerated this result transmit max reference range : <=11.0. The reference r javier was not used to interpr et this result as luis l/abnormal. [facility] CampusSqpnncrCAZJWAHYJX5866-96-37 10:00:00 Test Item Value Reference Range Interpretation Comments Plt Morph (test code = Normal (12/08/2011 N Plt Morph) 05:00:00) [facility] CampusTcocjurBXEHNEJXAC7628-87-23 10:00:00 Test Item Value Reference Range Interpretation Comments Atypical Lymphs (test code = Atypical 0.0 N Lymphs) [facility] CampusWhmjvdrWQHKDPYWUH6214-11-20 10:00:00 Test Item Value Reference Range Interpretation Comments Monocytes (test code = Monocytes) 4.0 2.0-12.0 N [facility] CampusVtgihlvETLFKAZWQH0334-21-68 10:00:00 Test Item Value Reference Range Interpretation Comments Elliptocyte (test code = Slight A Elliptocyte) *ABN*(12/08/2011 05:00:00) [facility] CampusMbxqixkYPQCEOYPEB9642-58-69 10:00:00 Test Item Value Reference Range Interpretation Comments Toxic Gran (test code Slight *ABN*(12/08/2011 A = Toxic Gran) 05:00:00) [facility] CampusPgrvnomVWPSMLLFVW7020-41-15 10:00:00 Test Item Value Reference Range Interpretation Comments Polychrom (test code = Slight (12/08/2011 N Polychrom) 05:00:00) [facility] CampusHfpmscgOOMPOMRKBS0788-33-90 10:00:00 Test Item Value Reference Range Interpretation Comments Segs (test code = Segs) 76.0 45.0-75.0 H [facility] CampusVsxcakzFRGLHFAZFQ8593-36-34 10:00:00 Test Item Value Reference Range Interpretation Comments Segs-Bands # (test code = Segs-Bands #) 7.3 1.5-8.1 N [facility] CampusZapwzgaWENNEHAUTV6829-51-63 10:00:00 Test Item Value Reference Range Interpretation Comments Monocytes # (test code 0.3 See_Comment N [Aut omated message] The = Monocytes #) system which generated this result tra nsmitted reference range : <=0.8. The reference r javier was not used to int erpret this result as normal/abnormal . [facility] CampusDncalgwDYDCQOOMAL3419-08-20 10:00:00 Test Item Value Reference Range Interpretation Comments Lymphocytes # (test code = Lymphocytes 0.7 1.0-5.5 L #) [facility] CampusPuftwhtQJEHYZYXZV6022-38-44 10:00:00 Test Item Value Reference Range Interpretation Comments RBC (test code = RBC) 2.91 4.20-5.40 L [facility] CampusUdeasbyOEOZWDTKSJ5238-72-51 10:00:00 Test Item Value Reference Range Interpretation Comments WBC (test code = WBC) 8.3 3.7-10.4 N [facility] CampusHlqlereBIYGEZZAAA8914-43-78 10:00:00 Test Item Value Reference Range Interpretation Comments MCH (test code = MCH) 30.3 pg 27.0-31.0 N [facility] CampusYtdzyvbJXXKPVSMAW5607-95-22 10:00:00 Test Item Value Reference Range Interpretation Comments MCV (test code = MCV) 89.3 81.0-99.0 N [facility] CampusRbakjiiXXLEIRHTSG5780-09-04 10:00:00 Test Item Value Reference Range Interpretation Comments MCHC (test code = MCHC) 33.9 32.0-36.0 N [facility] CampusZrdsdufYWNBZCPKNV9952-95-83 10:00:00 Test Item Value Reference Range Interpretation Comments Hct (test code = Hct) 26.0 36.0-48.0 L [facility] CampusMyiujrxKODMPQJCIZ0216-72-25 10:00:00 Test Item Value Reference Range Interpretation Comments Hgb (test code = Hgb) 8.8 12.0-16.0 L [facility] CampusNgwncchFCOSQEMFBA8858-23-56 10:00:00 Test Item Value Reference Range Interpretation Comments Platelet (test code = Platelet) 195 133-450 N [facility] CampusMtvskhcSZZVXJSKMK8023-34-14 10:00:00 Test Item Value Reference Range Interpretation Comments MPV (test code = MPV) 7.7 7.4-10.4 N [facility] CampusKlqchxgFAKDXJSLFP1636-66-50 10:00:00 Test Item Value Reference Range Interpretation Comments RDW (test code = RDW) 15.8 11.5-14.5 H [facility] CampusUfprideLMKVYJNNOK6247-25-22 10:00:00 Test Item Value Reference Range Interpretation Comments Lymphocytes (test code = Lymphocytes) 8.0 20.0-40.0 L [facility] CampusJbkvhowIRWYYPUVKN8643-05-52 10:00:00 Test Item Value Reference Range Interpretation Comments Bands (test code = 12.0 See_Comment H [Automat ed message] The Bands) system which ge nerated this result transmit max reference range : <=11.0. The reference r javier was not used to interpr et this result as luis l/abnormal. [facility] CampusPhnxhibQDVIQEIEDH8869-00-59 10:00:00 Test Item Value Reference Range Interpretation Comments Plt Morph (test code = Normal (12/08/2011 N Plt Morph) 05:00:00) [facility] CampusUlwirznIHIJUBFYWS9155-18-52 10:00:00 Test Item Value Reference Range Interpretation Comments Atypical Lymphs (test code = Atypical 0.0 N Lymphs) [facility] CampusXqewivqYIURRBOQII9627-34-54 10:00:00 Test Item Value Reference Range Interpretation Comments Monocytes (test code = Monocytes) 4.0 2.0-12.0 N [facility] CampusXfwmlfqOLWPPSLVPI1205-75-74 10:00:00 Test Item Value Reference Range Interpretation Comments Elliptocyte (test code = Slight A Elliptocyte) *ABN*(12/08/2011 05:00:00) [facility] CampusZjqwvjkCTYVGVZSTI9197-01-89 10:00:00 Test Item Value Reference Range Interpretation Comments Toxic Gran (test code Slight *ABN*(12/08/2011 A = Toxic Gran) 05:00:00) [facility] CampusDinukleJUCZJUSKMC0896-24-98 10:00:00 Test Item Value Reference Range Interpretation Comments Polychrom (test code = Slight (12/08/2011 N Polychrom) 05:00:00) [facility] CampusMybjunjRZPXVEELXP2861-45-12 10:00:00 Test Item Value Reference Range Interpretation Comments Segs (test code = Segs) 76.0 45.0-75.0 H [facility] CampusEthmjhrRTDPLZDJTT6495-01-19 10:00:00 Test Item Value Reference Range Interpretation Comments Segs-Bands # (test code = Segs-Bands #) 7.3 1.5-8.1 N [facility] CampusWphknpsBCPRSGHWEW3999-51-02 10:00:00 Test Item Value Reference Range Interpretation Comments Monocytes # (test code 0.3 See_Comment N [Aut omated message] The = Monocytes #) system which generated this result tra nsmitted reference range : <=0.8. The reference r javier was not used to int erpret this result as normal/abnormal . [facility] CampusTotwfbxYTXAEHPHIJ6890-67-90 10:00:00 Test Item Value Reference Range Interpretation Comments Lymphocytes # (test code = Lymphocytes 0.7 1.0-5.5 L #) [facility] CampusTqkfuquOXNRMBFSHQ7375-32-57 10:00:00 Test Item Value Reference Range Interpretation Comments RBC (test code = RBC) 2.91 4.20-5.40 L [facility] CampusNctaqoaKGGFGPQAJD0281-37-21 10:00:00 Test Item Value Reference Range Interpretation Comments WBC (test code = WBC) 8.3 3.7-10.4 N [facility] CampusHylmictNQZYSNANMW0447-87-35 10:00:00 Test Item Value Reference Range Interpretation Comments MCH (test code = MCH) 30.3 pg 27.0-31.0 N [facility] CampusTmfmoygDVNLRGTBIZ1022-94-35 10:00:00 Test Item Value Reference Range Interpretation Comments MCV (test code = MCV) 89.3 81.0-99.0 N [facility] CampusOvdnenhANZOIPEPOZ9281-49-70 10:00:00 Test Item Value Reference Range Interpretation Comments MCHC (test code = MCHC) 33.9 32.0-36.0 N [facility] CampusKsoatgxSSCRAUOWPU9991-48-10 10:00:00 Test Item Value Reference Range Interpretation Comments Hct (test code = Hct) 26.0 36.0-48.0 L [facility] CampusLzexmtwFCTVOLPAVF5622-27-44 10:00:00 Test Item Value Reference Range Interpretation Comments Hgb (test code = Hgb) 8.8 12.0-16.0 L [facility] CampusLylyhlySOYGVRMMUF9245-88-25 10:00:00 Test Item Value Reference Range Interpretation Comments Platelet (test code = Platelet) 195 133-450 N [facility] CampusVefvlukZVLSABYJPZ2412-73-33 10:00:00 Test Item Value Reference Range Interpretation Comments MPV (test code = MPV) 7.7 7.4-10.4 N [facility] CampusYndnyfwLRPKVUNZQM3706-16-78 10:00:00 Test Item Value Reference Range Interpretation Comments RDW (test code = RDW) 15.8 11.5-14.5 H [facility]TzvujnfZJAWIRJNX3134-96-60 14:33:00 Test Item Value Reference Range Interpretation Comments Phosphorus (test code = Phosphorus) 2.2 2.5-4.5 L [facility]ieBrcuyywYZRMYPCPA7198-29-63 14:33:00 Test Item Value Reference Range Interpretation Comments Potassium Lvl (test code = Potassium 4.0 3.5-5.1 N Lvl) [facility]ieRhbclxsQLLMTGADE6214-40-13 14:33:00 Test Item Value Reference Range Interpretation Comments Sodium Lvl (test code = Sodium Lvl) 143 135-145 N [facility]ieDltfqkpOTRKSLWBR1086-57-67 14:33:00 Test Item Value Reference Range Interpretation Comments Chloride Lvl (test code = Chloride Lvl) 110 95-109 H [facility]ieAospvmoFZOXDMSBP5181-44-28 14:33:00 Test Item Value Reference Range Interpretation Comments CO2 (test code = CO2) 22 24-32 L [facility]ieXrhhtgqVKOAVUQCW3632-39-68 14:33:00 Test Item Value Reference Range Interpretation Comments Calcium Lvl (test code = Calcium Lvl) 7.6 8.5-10.5 L [facility]ieWikiayqTZWRSNRNK7790-68-46 14:33:00 Test Item Value Reference Range Interpretation Comments Creatinine Lvl (test code = Creatinine 1.0 0.5-1.4 N Lvl) [facility]iePjhdtxoIURXREFAA7318-34-68 14:33:00 Test Item Value Reference Range Interpretation Comments BUN (test code = BUN) 16 7-22 N [facility]ieHmlghpjJSAWIIGDO4901-15-13 14:33:00 Test Item Value Reference Range Interpretation Comments Glucose Lvl (test code = Glucose Lvl) 115 70-99 H [facility]ieJcwzqylZCWLXASDI9702-26-42 14:33:00 Test Item Value Reference Range Interpretation Comments AGAP (test code = AGAP) 15.0 10.0-20.0 N [facility]ieIkdinlaSXFVTQNHE4074-54-76 14:33:00 Test Item Value Reference Range Interpretation Comments Magnesium Lvl (test code = Magnesium 1.3 1.8-2.4 L Lvl) [facility] CampusYhaelyqZJAAESFNQC5464-13-32 14:33:00 Test Item Value Reference Range Interpretation Comments Tot Cell Ct (test code = Tot Cell Ct) 100 1 [facility] CampusGnbmjvmXWGOITGAIT5805-38-08 14:33:00 Test Item Value Reference Range Interpretation Comments Plt Morph (test code = Normal (12/07/2011 N Plt Morph) 09:33:00) [facility] CampusHalrcviRVZTERNUVG0279-25-97 14:33:00 Test Item Value Reference Range Interpretation Comments Atypical Lymphs (test code = Atypical 0.0 N Lymphs) [facility] CampusHulbjvxHUIPGXOYJF3154-36-21 14:33:00 Test Item Value Reference Range Interpretation Comments Metamyelocytes (test code 1.0 See_Comment N [ Automated message] = Metamyelocytes) The system which generated this result transmitted ref erence range: <=1.0. T he reference range was not used to int erpret this result as normal/abnormal . [facility] CampusZuktoebZMXBIQDBKA4981-06-51 14:33:00 Test Item Value Reference Range Interpretation Comments Monocytes (test code = Monocytes) 8.0 2.0-12.0 N [facility] CampusBvvemodBHQQSXCALF5711-50-01 14:33:00 Test Item Value Reference Range Interpretation Comments Lymphocytes (test code = Lymphocytes) 17.0 20.0-40.0 L [facility] CampusUxtcpaqZOVWVNYWGP7490-72-96 14:33:00 Test Item Value Reference Range Interpretation Comments Segs (test code = Segs) 34.0 45.0-75.0 L [facility] CampusCdkvbwfLUCDXUBAVF0861-27-66 14:33:00 Test Item Value Reference Range Interpretation Comments Bands (test code = 40.0 See_Comment H [Automat ed message] The Bands) system which ge nerated this result transmit max reference range : <=11.0. The reference r javier was not used to interpr et this result as luis l/abnormal. [facility] CampusFprumcsRLAOEATTUF3877-97-71 14:33:00 Test Item Value Reference Range Interpretation Comments RBC Morph (test code = Normal (12/07/2011 N RBC Morph) 09:33:00) [facility] CampusEukwtkhLVSWCANUYS3569-55-05 14:33:00 Test Item Value Reference Range Interpretation Comments Monocytes # (test code 0.8 See_Comment N [Aut omated message] The = Monocytes #) system which generated this result tra nsmitted reference range : <=0.8. The reference r javier was not used to int erpret this result as normal/abnormal . [facility] CampusNzqfhuoSWHQVMXEZT0804-51-07 14:33:00 Test Item Value Reference Range Interpretation Comments Segs-Bands # (test code = Segs-Bands #) 7.2 1.5-8.1 N [facility] CampusWfmrcrlDXBCMEPAGV4213-57-95 14:33:00 Test Item Value Reference Range Interpretation Comments Lymphocytes # (test code = Lymphocytes 1.6 1.0-5.5 N #) [facility] CampusAevvwruNUYHVGBKSZ5010-37-40 14:33:00 Test Item Value Reference Range Interpretation Comments RDW (test code = RDW) 15.8 11.5-14.5 H [facility] CampusUryvzzrXUWUPAXWCL5716-66-97 14:33:00 Test Item Value Reference Range Interpretation Comments Hct (test code = Hct) 25.2 36.0-48.0 L [facility] CampusXkgbprsSOPNKZBDSW2445-41-25 14:33:00 Test Item Value Reference Range Interpretation Comments Hgb (test code = Hgb) 8.3 12.0-16.0 L [facility] CampusRrnbdcyANGZHKGAIG8376-12-04 14:33:00 Test Item Value Reference Range Interpretation Comments MCV (test code = MCV) 88.5 81.0-99.0 N [facility] CampusRqioldwHJMCLHTMZR0978-54-36 14:33:00 Test Item Value Reference Range Interpretation Comments MCHC (test code = MCHC) 32.8 32.0-36.0 N [facility] CampusWsoiaaqKQBZLKZLDA5136-42-07 14:33:00 Test Item Value Reference Range Interpretation Comments MCH (test code = MCH) 29.0 pg 27.0-31.0 N [facility] CampusZppjypsGHTDXEDKDW6213-31-93 14:33:00 Test Item Value Reference Range Interpretation Comments Platelet (test code = Platelet) 165 133-450 N [facility] CampusWlxuipgSCONWJKHAJ0027-82-48 14:33:00 Test Item Value Reference Range Interpretation Comments MPV (test code = MPV) 7.6 7.4-10.4 N [facility] CampusBhgfkkgVEJEYBBHMS0853-55-41 14:33:00 Test Item Value Reference Range Interpretation Comments RBC (test code = RBC) 2.85 4.20-5.40 L [facility] CampusTccvpumURKWYGGCRY0109-14-62 14:33:00 Test Item Value Reference Range Interpretation Comments WBC (test code = WBC) 9.7 3.7-10.4 N [facility]ieSduxdukOYEGBDOCM5457-08-24 14:33:00 Test Item Value Reference Range Interpretation Comments Phosphorus (test code = Phosphorus) 2.2 2.5-4.5 L [facility]ieFbdkvnhXBFHUQSYJ0324-01-11 14:33:00 Test Item Value Reference Range Interpretation Comments Potassium Lvl (test code = Potassium 4.0 3.5-5.1 N Lvl) [facility]ieVkgveeqZBUVETNWC5660-58-18 14:33:00 Test Item Value Reference Range Interpretation Comments Sodium Lvl (test code = Sodium Lvl) 143 135-145 N [facility]ieXboczneROCDOBFFA5582-94-19 14:33:00 Test Item Value Reference Range Interpretation Comments Chloride Lvl (test code = Chloride Lvl) 110 95-109 H [facility]ieSnfpxciXTPBMOESZ7838-45-50 14:33:00 Test Item Value Reference Range Interpretation Comments CO2 (test code = CO2) 22 24-32 L [facility]ieBcavfkkMHBVYOGIZ1836-70-59 14:33:00 Test Item Value Reference Range Interpretation Comments Calcium Lvl (test code = Calcium Lvl) 7.6 8.5-10.5 L [facility]ieOiqttpcXKLADOKZD5368-79-31 14:33:00 Test Item Value Reference Range Interpretation Comments Creatinine Lvl (test code = Creatinine 1.0 0.5-1.4 N Lvl) [facility]ieIzzwgvuCJNDSMYEY1117-99-44 14:33:00 Test Item Value Reference Range Interpretation Comments BUN (test code = BUN) 16 7-22 N [facility]ieKotjhpzFPSNNDEQY3145-29-03 14:33:00 Test Item Value Reference Range Interpretation Comments Glucose Lvl (test code = Glucose Lvl) 115 70-99 H [facility]iePahwmflQCBVUQLUP2480-69-52 14:33:00 Test Item Value Reference Range Interpretation Comments AGAP (test code = AGAP) 15.0 10.0-20.0 N [facility]ieEosaisbFFTDHFAES5353-08-49 14:33:00 Test Item Value Reference Range Interpretation Comments Magnesium Lvl (test code = Magnesium 1.3 1.8-2.4 L Lvl) [facility] CampusEmpxujaFEVRZCTHDO1218-35-70 14:33:00 Test Item Value Reference Range Interpretation Comments Tot Cell Ct (test code = Tot Cell Ct) 100 1 [facility] CampusGptndejHHFAYXKMUP7439-62-06 14:33:00 Test Item Value Reference Range Interpretation Comments Plt Morph (test code = Normal (12/07/2011 N Plt Morph) 09:33:00) [facility] CampusFkezxfqFYDBXJKJXA3488-99-97 14:33:00 Test Item Value Reference Range Interpretation Comments Atypical Lymphs (test code = Atypical 0.0 N Lymphs) [facility] CampusQxkypkeDDCGGYNSCH0940-84-55 14:33:00 Test Item Value Reference Range Interpretation Comments Metamyelocytes (test code 1.0 See_Comment N [ Automated message] = Metamyelocytes) The system which generated this result transmitted ref erence range: <=1.0. T he reference range was not used to int erpret this result as normal/abnormal . [facility] CampusUjnlwofSSDJKCUNID2617-99-51 14:33:00 Test Item Value Reference Range Interpretation Comments Monocytes (test code = Monocytes) 8.0 2.0-12.0 N [facility] CampusXmugnnkMRGSHNUDNP4872-79-86 14:33:00 Test Item Value Reference Range Interpretation Comments Lymphocytes (test code = Lymphocytes) 17.0 20.0-40.0 L [facility] CampusPibhgsmPJLXMFGKAK1682-81-48 14:33:00 Test Item Value Reference Range Interpretation Comments Segs (test code = Segs) 34.0 45.0-75.0 L [facility] CampusUzgilaoAFLWAIPFDW0350-08-63 14:33:00 Test Item Value Reference Range Interpretation Comments Bands (test code = 40.0 See_Comment H [Automat ed message] The Bands) system which ge nerated this result transmit max reference range : <=11.0. The reference r javier was not used to interpr et this result as luis l/abnormal. [facility] CampusWstqlqwAXQKBMOSVV8422-78-60 14:33:00 Test Item Value Reference Range Interpretation Comments RBC Morph (test code = Normal (12/07/2011 N RBC Morph) 09:33:00) [facility] CampusNuadwezAWTFQQOIHJ9836-02-54 14:33:00 Test Item Value Reference Range Interpretation Comments Monocytes # (test code 0.8 See_Comment N [Aut omated message] The = Monocytes #) system which generated this result tra nsmitted reference range : <=0.8. The reference r javier was not used to int erpret this result as normal/abnormal . [facility] CampusDtlyipeUPWJFHBMPN0542-40-69 14:33:00 Test Item Value Reference Range Interpretation Comments Segs-Bands # (test code = Segs-Bands #) 7.2 1.5-8.1 N [facility] CampusXzqcqvgFCQOXPRYAR3070-08-23 14:33:00 Test Item Value Reference Range Interpretation Comments Lymphocytes # (test code = Lymphocytes 1.6 1.0-5.5 N #) [facility] CampusUrljzlpQHIJASFMVR7455-31-58 14:33:00 Test Item Value Reference Range Interpretation Comments RDW (test code = RDW) 15.8 11.5-14.5 H [facility] CampusItvgzoqIXYXBHUGTK4719-42-14 14:33:00 Test Item Value Reference Range Interpretation Comments Hct (test code = Hct) 25.2 36.0-48.0 L [facility] CampusOaicireTXTMARSKTH4994-67-43 14:33:00 Test Item Value Reference Range Interpretation Comments Hgb (test code = Hgb) 8.3 12.0-16.0 L [facility] CampusCuzvrvxXWBVJDNIIV1862-22-82 14:33:00 Test Item Value Reference Range Interpretation Comments MCV (test code = MCV) 88.5 81.0-99.0 N [facility] CampusCtzaifsTCIPLOUXPI3005-00-61 14:33:00 Test Item Value Reference Range Interpretation Comments MCHC (test code = MCHC) 32.8 32.0-36.0 N [facility] CampusSgfhodpPOPIVFQOUS1173-11-01 14:33:00 Test Item Value Reference Range Interpretation Comments MCH (test code = MCH) 29.0 pg 27.0-31.0 N [facility] CampusTmzitvvDZFGZPQXLM4723-80-47 14:33:00 Test Item Value Reference Range Interpretation Comments Platelet (test code = Platelet) 165 133-450 N [facility] CampusKegcmwlCOSVRNNALP5785-05-54 14:33:00 Test Item Value Reference Range Interpretation Comments MPV (test code = MPV) 7.6 7.4-10.4 N [facility] CampusSjadqrgEYCOXANZPC4357-92-67 14:33:00 Test Item Value Reference Range Interpretation Comments RBC (test code = RBC) 2.85 4.20-5.40 L [facility] CampusIhsbtlzWCOUXRSJAY0529-74-63 14:33:00 Test Item Value Reference Range Interpretation Comments WBC (test code = WBC) 9.7 3.7-10.4 N [facility]HruupuuUucxmugaybtb5576-09-38 22:45:00 Test Item Value Reference Range Interpretation Comments Culture: Blood (test code = Culture: Blood) [facility]cosRcymfkiGmgabuplykun6538-08-04 22:45:00 Test Item Value Reference Range Interpretation Comments Culture: Blood (test code = Culture: Blood) [facility]cosGjtlnjoSczcxwuesolk6246-74-57 22:30:00 Test Item Value Reference Range Interpretation Comments Culture: Blood (test code = Culture: Blood) [facility]cosHbokqysNoumnolxhced4889-40-82 22:30:00 Test Item Value Reference Range Interpretation Comments Culture: Blood (test code = Culture: Blood) [facility]WyclbbnBZGDDSQCVG1208-20-62 22:15:00 Test Item Value Reference Range Interpretation Comments UA Bili (test code = Negative *NA*(12/06/2011 UA Bili) 17:15:00) [facility]UmqquhwRRULAVLTLS0671-94-69 22:15:00 Test Item Value Reference Range Interpretation Comments UA Nitrite (test code Negative (12/06/2011 N = UA Nitrite) 17:15:00) [facility] CenterSjxwpdmKAEJYOXTAZ5878-56-83 22:15:00 Test Item Value Reference Range Interpretation Comments UA WBC (test code = 3 See_Comment N [Automa max message] The UA WBC) system which ge nerated this result transmit max reference range : <=5. The reference range was not used to interpr et this result as luis l/abnormal. [facility] CenterUprqhtmNOONQNHIIK1501-00-89 22:15:00 Test Item Value Reference Range Interpretation Comments UA Mucus (test code = Many /LPF A UA Mucus) *ABN*(12/06/2011 17:15:00) [facility] CenterIueqohlTPUFAEOSBQ5635-09-18 22:15:00 Test Item Value Reference Range Interpretation Comments UA Leuk Est (test Negative (12/06/2011 N code = UA Leuk Est) 17:15:00) [facility] CenterVvvbrwjNFSYHIHRQF1989-68-74 22:15:00 Test Item Value Reference Range Interpretation Comments UA Sq Epi (test code Occasional /LPF = UA Sq Epi) *NA*(12/06/2011 17:15:00) [facility] CenterYxrlbyvZYEZOPGBPN8698-97-55 22:15:00 Test Item Value Reference Range Interpretation Comments UA Blood (test code = Negative (12/06/2011 N UA Blood) 17:15:00) [facility] CenterLzjvbsgKYJCOAUAPI8825-10-17 22:15:00 Test Item Value Reference Range Interpretation Comments UA Urobilinogen (test code *NA*(12/06/2011 0.1-1.0 = UA Urobilinogen) 17:15:00) [facility] CenterRvhawgvGKUYTMMQQL3381-07-92 22:15:00 Test Item Value Reference Range Interpretation Comments UA Protein (test code = 20 mg/dL A UA Protein) *ABN*(12/06/2011 17:15:00) [facility] HospitalQsmklnjIKFEVPRWQC9429-23-71 22:15:00 Test Item Value Reference Range Interpretation Comments UA Ketones (test code Negative mg/dL = UA Ketones) *NA*(12/06/2011 17:15:00) [facility] CenterZwxvykxQSTFCAUTQJ7553-96-70 22:15:00 Test Item Value Reference Range Interpretation Comments UA Glucose (test code Negative mg/dL = UA Glucose) *NA*(12/06/2011 17:15:00) [facility] CenterYvlacxmOVGMRXQTFS5141-35-97 22:15:00 Test Item Value Reference Range Interpretation Comments UA Turbidity (test code = Clear (12/06/2011 N UA Turbidity) 17:15:00) [facility] CenterPyvvoipHWNKADDOIC9285-08-22 22:15:00 Test Item Value Reference Range Interpretation Comments UA Color (test code = Yellow *NA*(12/06/2011 UA Color) 17:15:00) [facility] CenterKcbnqvvVXVLIEJALS2663-92-18 22:15:00 Test Item Value Reference Range Interpretation Comments UA pH (test code = UA pH) 5.5 5.0-8.0 N [facility] CenterRvpmypjKMHDTBNYSX2717-48-65 22:15:00 Test Item Value Reference Range Interpretation Comments UA Spec Grav (test code = UA Spec Grav) 1.016 N [facility] CenterKxvcubtSXEILYONPI9987-25-65 22:15:00 Test Item Value Reference Range Interpretation Comments UA Bili (test code = Negative *NA*(12/06/2011 UA Bili) 17:15:00) [facility] CenterLeqjinkVPMBJAVCWL4157-89-07 22:15:00 Test Item Value Reference Range Interpretation Comments UA Nitrite (test code Negative (12/06/2011 N = UA Nitrite) 17:15:00) [facility] CenterXabraerLJQGMNEHTC2149-27-14 22:15:00 Test Item Value Reference Range Interpretation Comments UA WBC (test code = 3 See_Comment N [Automa max message] The UA WBC) system which ge nerated this result transmit max reference range : <=5. The reference range was not used to interpr et this result as luis l/abnormal. [facility] CenterXknhxizSQXPCVCKAO2555-66-72 22:15:00 Test Item Value Reference Range Interpretation Comments UA Mucus (test code = Many /LPF A UA Mucus) *ABN*(12/06/2011 17:15:00) [facility] CenterBvghstaLREFYMJBTW6955-77-86 22:15:00 Test Item Value Reference Range Interpretation Comments UA Leuk Est (test Negative (12/06/2011 N code = UA Leuk Est) 17:15:00) [facility] CenterRrpzetbSESIGQSFTH8233-78-12 22:15:00 Test Item Value Reference Range Interpretation Comments UA Sq Epi (test code Occasional /LPF = UA Sq Epi) *NA*(12/06/2011 17:15:00) [facility] CenterAwjnwdjQTAZVRWJYU0176-62-23 22:15:00 Test Item Value Reference Range Interpretation Comments UA Blood (test code = Negative (12/06/2011 N UA Blood) 17:15:00) [facility] CenterKmjvzryVOBXNOHBKD8000-18-78 22:15:00 Test Item Value Reference Range Interpretation Comments UA Urobilinogen (test code *NA*(12/06/2011 0.1-1.0 = UA Urobilinogen) 17:15:00) [facility] CenterDfthpdyLZPBXAEETC4597-04-83 22:15:00 Test Item Value Reference Range Interpretation Comments UA Protein (test code = 20 mg/dL A UA Protein) *ABN*(12/06/2011 17:15:00) [facility] CenterBrqvlufWSTVEIENCU2405-63-64 22:15:00 Test Item Value Reference Range Interpretation Comments UA Ketones (test code Negative mg/dL = UA Ketones) *NA*(12/06/2011 17:15:00) [facility] CenterOfwtoknETTPIGVQAG4955-61-21 22:15:00 Test Item Value Reference Range Interpretation Comments UA Glucose (test code Negative mg/dL = UA Glucose) *NA*(12/06/2011 17:15:00) [facility] CenterUyxezebGCFNIYZXRM8832-37-41 22:15:00 Test Item Value Reference Range Interpretation Comments UA Turbidity (test code = Clear (12/06/2011 N UA Turbidity) 17:15:00) [facility] CenterUykcvcbHLEKHDSTYL8041-50-80 22:15:00 Test Item Value Reference Range Interpretation Comments UA Color (test code = Yellow *NA*(12/06/2011 UA Color) 17:15:00) [facility] CenterCpuoecvOBKMMZKAJX1864-71-96 22:15:00 Test Item Value Reference Range Interpretation Comments UA pH (test code = UA pH) 5.5 5.0-8.0 N [facility]FefmzydEZQEGFEMRA1479-09-11 22:15:00 Test Item Value Reference Range Interpretation Comments UA Spec Grav (test code = UA Spec Grav) 1.016 N [facility]ieItceavyLKEPYKLAO4913-18-64 09:20:00 Test Item Value Reference Range Interpretation Comments BUN (test code = BUN) 5 7-22 L [facility]ieWgwvglbOHCFXKZMW2143-33-21 09:20:00 Test Item Value Reference Range Interpretation Comments Creatinine Lvl (test code = Creatinine 0.8 0.5-1.4 N Lvl) [facility]ieBqloairIYDILOKBA8283-45-84 09:20:00 Test Item Value Reference Range Interpretation Comments Glucose Lvl (test code = Glucose Lvl) 108 70-99 H [facility]ieXxolpftKFRLJOPTS7695-31-45 09:20:00 Test Item Value Reference Range Interpretation Comments Calcium Lvl (test code = Calcium Lvl) 8.0 8.5-10.5 L [facility]ieBtgvmigWLXKGBAII0028-64-15 09:20:00 Test Item Value Reference Range Interpretation Comments Chloride Lvl (test code = Chloride Lvl) 107 95-109 N [facility]ieCxbqlgmSGDEDIJGK9612-39-68 09:20:00 Test Item Value Reference Range Interpretation Comments CO2 (test code = CO2) 25 24-32 N [facility]ieRszvpmlTIKJWYRJA5105-55-96 09:20:00 Test Item Value Reference Range Interpretation Comments Sodium Lvl (test code = Sodium Lvl) 142 135-145 N [facility]ieAfxsmmhNVIJHKLRF6483-42-01 09:20:00 Test Item Value Reference Range Interpretation Comments Potassium Lvl (test code = Potassium 4.0 3.5-5.1 N Lvl) [facility]ieBeuhufuEMUOUMHGP9836-77-77 09:20:00 Test Item Value Reference Range Interpretation Comments AGAP (test code = AGAP) 14.0 10.0-20.0 N [facility]HnlqxfoUWSYPLDIGE7521-61-65 09:20:00 Test Item Value Reference Range Interpretation Comments Eosinophils # (test code 0.1 See_Comment N [A utomated message] The = Eosinophils #) system whic h generated this result tra nsmitted reference range : <=0.5. The reference r javier was not used to int erpret this result as normal/abnormal . [facility] CampusOuskazjKQPPTSFPPT5985-04-74 09:20:00 Test Item Value Reference Range Interpretation Comments Basophils # (test code 0.0 See_Comment N [Aut omated message] The = Basophils #) system which generated this result tra nsmitted reference range : <=0.2. The reference r javier was not used to int erpret this result as normal/abnormal . [facility] CampusMkybzaxCKQCFSWQUM0877-19-57 09:20:00 Test Item Value Reference Range Interpretation Comments Basophils (test code = 0.1 See_Comment N [Aut omated message] The Basophils) system which ge nerated this result tra nsmitted reference range : <=1.0. The reference r javier was not used to int erpret this result as normal/abnormal . [facility] CampusSydfmzjPMOHMALNNZ9626-20-87 09:20:00 Test Item Value Reference Range Interpretation Comments Eosinophils (test code = 1.0 See_Comment N [A utomated message] The Eosinophils) system which ge nerated this result tra nsmitted reference range : <=4.0. The reference r javier was not used to int erpret this result as normal/abnormal . [facility]ieMyzhznhTHIQTNKEL4292-97-14 09:20:00 Test Item Value Reference Range Interpretation Comments BUN (test code = BUN) 5 7-22 L [facility]iePlhukzvANHXRNFOP5280-13-10 09:20:00 Test Item Value Reference Range Interpretation Comments Creatinine Lvl (test code = Creatinine 0.8 0.5-1.4 N Lvl) [facility]ieLtgrawrNGOMODFMZ5104-33-18 09:20:00 Test Item Value Reference Range Interpretation Comments Glucose Lvl (test code = Glucose Lvl) 108 70-99 H [facility]ieEniketkDEPNJJDSL6299-97-20 09:20:00 Test Item Value Reference Range Interpretation Comments Calcium Lvl (test code = Calcium Lvl) 8.0 8.5-10.5 L [facility]ieCtudwglJAUXOWXCP7490-21-31 09:20:00 Test Item Value Reference Range Interpretation Comments Chloride Lvl (test code = Chloride Lvl) 107 95-109 N [facility]ieMaricpcVDAZWBYUR5723-93-48 09:20:00 Test Item Value Reference Range Interpretation Comments CO2 (test code = CO2) 25 24-32 N [facility]ieCqfzsqrOGEGAKXAD2749-08-30 09:20:00 Test Item Value Reference Range Interpretation Comments Sodium Lvl (test code = Sodium Lvl) 142 135-145 N [facility]ieNzidjczNWVEPDYHL6302-06-75 09:20:00 Test Item Value Reference Range Interpretation Comments Potassium Lvl (test code = Potassium 4.0 3.5-5.1 N Lvl) [facility]ieAjopikiDCHOOTJNH8866-75-09 09:20:00 Test Item Value Reference Range Interpretation Comments AGAP (test code = AGAP) 14.0 10.0-20.0 N [facility] CampusNcyukmzHJYHXMYEKS8435-30-34 09:20:00 Test Item Value Reference Range Interpretation Comments Eosinophils # (test code 0.1 See_Comment N [A utomated message] The = Eosinophils #) system whic h generated this result tra nsmitted reference range : <=0.5. The reference r javier was not used to int erpret this result as normal/abnormal . [facility] CampusCofcglvKKMZWFXQAZ5903-77-92 09:20:00 Test Item Value Reference Range Interpretation Comments Basophils # (test code 0.0 See_Comment N [Aut omated message] The = Basophils #) system which generated this result tra nsmitted reference range : <=0.2. The reference r javier was not used to int erpret this result as normal/abnormal . [facility] CampusKgdxpoeLTLEPRDWFC4577-06-34 09:20:00 Test Item Value Reference Range Interpretation Comments Basophils (test code = 0.1 See_Comment N [Aut omated message] The Basophils) system which ge nerated this result tra nsmitted reference range : <=1.0. The reference r javier was not used to int erpret this result as normal/abnormal . [facility] CampusBazuvdgDPADKHXIVQ1890-59-33 09:20:00 Test Item Value Reference Range Interpretation Comments Eosinophils (test code = 1.0 See_Comment N [A utomated message] The Eosinophils) system which ge nerated this result tra nsmitted reference range : <=4.0. The reference r javier was not used to int erpret this result as normal/abnormal . [facility]ieGyflghgCUYRAWUOO3008-59-58 18:20:00 Test Item Value Reference Range Interpretation Comments Hgb A1C (test code = Hgb A1C) 5.8 [facility]ieIprpsveWHBYWUQWV1317-15-51 18:20:00 Test Item Value Reference Range Interpretation Comments Selenium Lvl (test code = Selenium Lvl) 130 [facility]ieZcyvwfyPBZLOMJLO4736-53-88 18:20:00 Test Item Value Reference Range Interpretation Comments PTH Intact (test code = PTH Intact) 227.6 11.1-79.5 H [facility]ieWohylliKVMHALVSK6932-52-90 18:20:00 Test Item Value Reference Range Interpretation Comments CHD Risk (test code = CHD Risk) 3.27 3.90-5.80 L [facility]ieDozmcfgXXUYAIEWM0469-18-35 18:20:00 Test Item Value Reference Range Interpretation Comments LDL (test code = LDL) 128 See_Comment N [Auto mated message] The system which ge nerated this result transmit max reference range : <=129. The reference range was not used to interpr et this result as luis l/abnormal. [facility]ieFtunfwtEVEQSRWBS1944-01-20 18:20:00 Test Item Value Reference Range Interpretation Comments Chol (test code = Chol) 203 120-200 H [facility]ieFpihygfMVYOCHXDY5926-67-13 18:20:00 Test Item Value Reference Range Interpretation Comments HDL (test code = HDL) 62 N [facility]ieGzuurnjLTUTTTLXP1291-67-41 18:20:00 Test Item Value Reference Range Interpretation Comments Trig (test code = 64 See_Comment N [Automate d message] The Trig) system which ge nerated this result transmit max reference range : <=200. The reference range was not used to interpr et this result as luis l/abnormal. [facility]ieGiyaznuITNEFGFMH9454-99-80 18:20:00 Test Item Value Reference Range Interpretation Comments TIBC (test code = TIBC) 412 228-428 N [facility]ieEemjphsAMAWOKPRR3461-12-28 18:20:00 Test Item Value Reference Range Interpretation Comments Iron (test code = Iron) 138 30-160 N [facility]ieFpvmaktHLFNUKMQU9631-75-59 18:20:00 Test Item Value Reference Range Interpretation Comments % Satur Fe (test code = % Satur Fe) 33 12-57 N [facility]iePerkguwJYNIGSFJN7789-85-90 18:20:00 Test Item Value Reference Range Interpretation Comments UIBC (test code = UIBC) 274 110-370 N [facility]ieLqzhzsaDWEVVHXEA7941-32-98 18:20:00 Test Item Value Reference Range Interpretation Comments T4 (test code = T4) 6.3 4.7-13.3 N [facility]ieNaqqrgjYBCPHVWMA2223-11-66 18:20:00 Test Item Value Reference Range Interpretation Comments TSH (test code = TSH) 1.600 0.360-3.740 N [facility]iePqqazqiJWEIMFAZT1089-36-24 18:20:00 Test Item Value Reference Range Interpretation Comments Vitamin D2 25-OH (test code = Vitamin no gt D2 25-OH) [facility]ieGwazyljCXBKFVTDW5375-30-98 18:20:00 Test Item Value Reference Range Interpretation Comments Vitamin D3 25-OH (test code = Vitamin 13 D3 25-OH) [facility]ieRyadxicWOWFXAVXS2466-83-83 18:20:00 Test Item Value Reference Range Interpretation Comments Vitamin D, 25-OH, Total (test code = 13 30-100 L Vitamin D, 25-OH, Total) [facility]ieRyqweiyTFAHARDRM7613-83-79 18:20:00 Test Item Value Reference Range Interpretation Comments Vitamin A (test code = Vitamin A) 41 38-98 [facility]ieEbnoxkcMEAIRGTUL1347-93-11 18:20:00 Test Item Value Reference Range Interpretation Comments Folate Lvl (test code = Folate Lvl) 19.3 N [facility]ieCkfjbluSAWNREZAL7280-54-39 18:20:00 Test Item Value Reference Range Interpretation Comments Vitamin B1 (test code = Vitamin B1) 122 87-280 [facility]ieCzibezqYYVSVJBLP9682-20-84 18:20:00 Test Item Value Reference Range Interpretation Comments Copper Lvl (test code = Copper Lvl) 121 70-175 [facility]ieSdekdgmRLUBBAUCB5359-80-85 18:20:00 Test Item Value Reference Range Interpretation Comments Vitamin B12 Lvl (test code = Vitamin 591 211-911 N B12 Lvl) [facility]ieXramnimKQDXGEAHD4987-00-83 18:20:00 Test Item Value Reference Range Interpretation Comments Phosphorus (test code = Phosphorus) 3.6 2.5-4.5 N [facility]ieIdnqrnhPLUYTJXAD8705-05-28 18:20:00 Test Item Value Reference Range Interpretation Comments Magnesium Lvl (test code = Magnesium 1.9 1.8-2.4 N Lvl) [facility]ieYmlqrdmCNKFANPIK9658-35-49 18:20:00 Test Item Value Reference Range Interpretation Comments Globulin (test code = Globulin) 2.8 2.0-4.0 N [facility]ieLvimtksZYUNWXVPD4173-75-84 18:20:00 Test Item Value Reference Range Interpretation Comments A/G Ratio (test code = A/G Ratio) 1.2 0.7-1.6 N [facility]ieZbtlrbzRKJNTOBTG8031-79-72 18:20:00 Test Item Value Reference Range Interpretation Comments AGAP (test code = AGAP) 12.2 10.0-20.0 N [facility]ieUagfocxWJWOKOGCU7093-22-13 18:20:00 Test Item Value Reference Range Interpretation Comments B/C Ratio (test code = B/C Ratio) 14 6-25 N [facility]ieOmgrbhwICMDGEMST5990-66-77 18:20:00 Test Item Value Reference Range Interpretation Comments Bili Total (test code = Bili Total) 0.3 0.2-1.3 N [facility]ieWmatzmpLWFDIXFDI4491-49-31 18:20:00 Test Item Value Reference Range Interpretation Comments AST (test code = AST) 7 See_Comment N [Auto mated message] The system which ge nerated this result transmit max reference range : <=37. The reference range was not used to interpr et this result as luis l/abnormal. [facility]ieJukkqcrQXCQVEUCW4235-72-10 18:20:00 Test Item Value Reference Range Interpretation Comments Albumin Lvl (test code = Albumin Lvl) 3.5 3.5-5.0 N [facility]ieHebtpezGFGEAUJPW1973-14-76 18:20:00 Test Item Value Reference Range Interpretation Comments ALT (test code = ALT) 7 See_Comment N [Auto mated message] The system which ge nerated this result transmit max reference range : <=65. The reference range was not used to interpr et this result as luis l/abnormal. [facility]ieDgbgdgxAOSGOMVKN2457-68-32 18:20:00 Test Item Value Reference Range Interpretation Comments Alk Phos (test code = Alk Phos) 54 39-136 N [facility]ieSlqmtrbJJIHTPBLF5366-35-95 18:20:00 Test Item Value Reference Range Interpretation Comments Total Protein (test code = Total 6.3 6.4-8.4 L Protein) [facility]ieSkpmoysBSUMRAUTA2602-93-41 18:20:00 Test Item Value Reference Range Interpretation Comments CO2 (test code = CO2) 26 24-32 N [facility]ieKesxhduJROHVKQDB7672-89-25 18:20:00 Test Item Value Reference Range Interpretation Comments Calcium Lvl (test code = Calcium Lvl) 8.7 8.5-10.5 N [facility]ieLalkajzXGHYTQEXJ4081-67-84 18:20:00 Test Item Value Reference Range Interpretation Comments Sodium Lvl (test code = Sodium Lvl) 139 135-145 N [facility]ieAtvbfmwSQBPLVTMW6467-70-44 18:20:00 Test Item Value Reference Range Interpretation Comments Potassium Lvl (test code = Potassium 4.2 3.5-5.1 N Lvl) [facility]ieNopcuncNIJHIRZNS1924-35-33 18:20:00 Test Item Value Reference Range Interpretation Comments Chloride Lvl (test code = Chloride Lvl) 105 95-109 N [facility]ieDfltijeUREXJRJMZ7685-02-88 18:20:00 Test Item Value Reference Range Interpretation Comments Glucose Lvl (test code = Glucose Lvl) 111 70-99 H [facility]ieAeysyazLVPGZCKAI6571-27-37 18:20:00 Test Item Value Reference Range Interpretation Comments BUN (test code = BUN) 11 7-22 N [facility]ieClzcbvgQYPRHSMOD4913-17-86 18:20:00 Test Item Value Reference Range Interpretation Comments Creatinine Lvl (test code = Creatinine 0.8 0.5-1.4 N Lvl) [facility] CampusVpkjzheWIGQQHHMAY9612-22-42 18:20:00 Test Item Value Reference Range Interpretation Comments Eosinophils (test code = 0.7 See_Comment N [A utomated message] The Eosinophils) system which ge nerated this result tra nsmitted reference range : <=4.0. The reference r javier was not used to int erpret this result as normal/abnormal . [facility] CampusNjemqkyKXLBEWUKFH2205-60-43 18:20:00 Test Item Value Reference Range Interpretation Comments Basophils (test code = 0.1 See_Comment N [Aut omated message] The Basophils) system which ge nerated this result tra nsmitted reference range : <=1.0. The reference r javier was not used to int erpret this result as normal/abnormal . [facility] CampusTicdfwqOQWDDTPBBG7713-90-81 18:20:00 Test Item Value Reference Range Interpretation Comments Eosinophils # (test code 0.0 See_Comment N [A utomated message] The = Eosinophils #) system wh h generated this result tra nsmitted reference range : <=0.5. The reference r javier was not used to int erpret this result as normal/abnormal . [facility] CampusVnmukgaJRTJBYHORT8025-05-68 18:20:00 Test Item Value Reference Range Interpretation Comments Basophils # (test code 0.0 See_Comment N [Aut omated message] The = Basophils #) system which generated this result tra nsmitted reference range : <=0.2. The reference r javier was not used to int erpret this result as normal/abnormal . [facility] CampusDmndwprCMDCKEXHZM3059-74-82 18:20:00 Test Item Value Reference Range Interpretation Comments INR (test code = INR) 0.92 0.85-1.17 N [facility] CampusHdqlkmnMTANORAHIW3137-64-95 18:20:00 Test Item Value Reference Range Interpretation Comments PT (test code = PT) 12.4 s 12.0-14.7 N [facility] DallasNyyijsiXCTFEFOQKI8142-45-78 18:20:00 Test Item Value Reference Range Interpretation Comments Prealbumin (test code = Prealbumin) 19.9 18.0-45.0 N [facility]ieAsmupknTDWLQBWGF8908-83-64 18:20:00 Test Item Value Reference Range Interpretation Comments Hgb A1C (test code = Hgb A1C) 5.8 [facility]ieOkbgtznJZGKIAAQD2821-66-99 18:20:00 Test Item Value Reference Range Interpretation Comments Selenium Lvl (test code = Selenium Lvl) 130 [facility]ieOqikccpXPTMTIPZX9638-75-49 18:20:00 Test Item Value Reference Range Interpretation Comments PTH Intact (test code = PTH Intact) 227.6 11.1-79.5 H [facility]ieGvnottnYRNLYRVGO8900-11-95 18:20:00 Test Item Value Reference Range Interpretation Comments CHD Risk (test code = CHD Risk) 3.27 3.90-5.80 L [facility]ieIiydptaFQZSXUSHB5391-22-12 18:20:00 Test Item Value Reference Range Interpretation Comments LDL (test code = LDL) 128 See_Comment N [Auto mated message] The system which ge nerated this result transmit max reference range : <=129. The reference range was not used to interpr et this result as luis l/abnormal. [facility]ieJlwuhahGMQQNOKFC8535-02-21 18:20:00 Test Item Value Reference Range Interpretation Comments Chol (test code = Chol) 203 120-200 H [facility]ieQsjylgcSHISFRITV6468-10-26 18:20:00 Test Item Value Reference Range Interpretation Comments HDL (test code = HDL) 62 N [facility]ieHcwzdmvLHXCONMPC6534-82-42 18:20:00 Test Item Value Reference Range Interpretation Comments Trig (test code = 64 See_Comment N [Automate d message] The Trig) system which ge nerated this result transmit max reference range : <=200. The reference range was not used to interpr et this result as luis l/abnormal. [facility]ieCcynpbcJDMXVADTD1261-21-76 18:20:00 Test Item Value Reference Range Interpretation Comments TIBC (test code = TIBC) 412 228-428 N [facility]ieSdwaiikLQTIGVDSJ7202-50-51 18:20:00 Test Item Value Reference Range Interpretation Comments Iron (test code = Iron) 138 30-160 N [facility]ieWdoifueCIFDARTBC2645-27-32 18:20:00 Test Item Value Reference Range Interpretation Comments % Satur Fe (test code = % Satur Fe) 33 12-57 N [facility]ieQoiufluALDRSBQZI8820-25-05 18:20:00 Test Item Value Reference Range Interpretation Comments UIBC (test code = UIBC) 274 110-370 N [facility]iePwhkwflEQZSGHCIJ1228-55-47 18:20:00 Test Item Value Reference Range Interpretation Comments T4 (test code = T4) 6.3 4.7-13.3 N [facility]ieKqpfnehRNURKKUZE1975-06-94 18:20:00 Test Item Value Reference Range Interpretation Comments TSH (test code = TSH) 1.600 0.360-3.740 N [facility]iePakptqwUBRVYGOAB9588-96-31 18:20:00 Test Item Value Reference Range Interpretation Comments Vitamin D2 25-OH (test code = Vitamin no gt D2 25-OH) [facility]ieLvwhtztVIZQIZLOX6222-14-93 18:20:00 Test Item Value Reference Range Interpretation Comments Vitamin D3 25-OH (test code = Vitamin 13 D3 25-OH) [facility]ieHcgavmvIASKGCSMV8298-00-90 18:20:00 Test Item Value Reference Range Interpretation Comments Vitamin D, 25-OH, Total (test code = 13 30-100 L Vitamin D, 25-OH, Total) [facility]ieAmfpkfbBVPKRNPCT6667-84-30 18:20:00 Test Item Value Reference Range Interpretation Comments Vitamin A (test code = Vitamin A) 41 38-98 [facility]ieZppvxckRZWMHDIXM2427-15-26 18:20:00 Test Item Value Reference Range Interpretation Comments Folate Lvl (test code = Folate Lvl) 19.3 N [facility]ieAbkogabCHVKJTHWE9561-52-19 18:20:00 Test Item Value Reference Range Interpretation Comments Vitamin B1 (test code = Vitamin B1) 122 87-280 [facility]ieObvgcrrJDTHMHVOS5540-66-28 18:20:00 Test Item Value Reference Range Interpretation Comments Copper Lvl (test code = Copper Lvl) 121 70-175 [facility]ieDgmhnmySDDHQOVRC3133-63-02 18:20:00 Test Item Value Reference Range Interpretation Comments Vitamin B12 Lvl (test code = Vitamin 591 211-911 N B12 Lvl) [facility]ieDupernoHCPNJMAZN9704-05-53 18:20:00 Test Item Value Reference Range Interpretation Comments Phosphorus (test code = Phosphorus) 3.6 2.5-4.5 N [facility]ieDvfsbnsKHCQYCMZB2386-83-56 18:20:00 Test Item Value Reference Range Interpretation Comments Magnesium Lvl (test code = Magnesium 1.9 1.8-2.4 N Lvl) [facility]ieFntihehKNIOPWGQP1359-58-05 18:20:00 Test Item Value Reference Range Interpretation Comments Globulin (test code = Globulin) 2.8 2.0-4.0 N [facility]iePdinddqZOMUJOVDQ4914-83-64 18:20:00 Test Item Value Reference Range Interpretation Comments A/G Ratio (test code = A/G Ratio) 1.2 0.7-1.6 N [facility]ieFwrjncoGRWNXMOXH7962-66-45 18:20:00 Test Item Value Reference Range Interpretation Comments AGAP (test code = AGAP) 12.2 10.0-20.0 N [facility]ieLlrueoqFBRZADECO3211-27-27 18:20:00 Test Item Value Reference Range Interpretation Comments B/C Ratio (test code = B/C Ratio) 14 6-25 N [facility]ieUrcozymYISOTOSNN7512-46-70 18:20:00 Test Item Value Reference Range Interpretation Comments Bili Total (test code = Bili Total) 0.3 0.2-1.3 N [facility]ieOkfwyqmAYJOUPZXD4455-94-27 18:20:00 Test Item Value Reference Range Interpretation Comments AST (test code = AST) 7 See_Comment N [Auto mated message] The system which ge nerated this result transmit max reference range : <=37. The reference range was not used to interpr et this result as luis l/abnormal. [facility]ieCceheclUFKMADQVG5691-54-91 18:20:00 Test Item Value Reference Range Interpretation Comments Albumin Lvl (test code = Albumin Lvl) 3.5 3.5-5.0 N [facility]ieEiwxvinPSXOYZRCX4174-94-63 18:20:00 Test Item Value Reference Range Interpretation Comments ALT (test code = ALT) 7 See_Comment N [Auto mated message] The system which ge nerated this result transmit max reference range : <=65. The reference range was not used to interpr et this result as luis l/abnormal. [facility]ieCkjicgfUJFRIDTRC0915-79-73 18:20:00 Test Item Value Reference Range Interpretation Comments Alk Phos (test code = Alk Phos) 54 39-136 N [facility]ieWtqygfhVFYNFGTFS8774-60-69 18:20:00 Test Item Value Reference Range Interpretation Comments Total Protein (test code = Total 6.3 6.4-8.4 L Protein) [facility]ieUnsbejbEAWHSKNCW3792-85-08 18:20:00 Test Item Value Reference Range Interpretation Comments CO2 (test code = CO2) 26 24-32 N [facility]ieNsmjngdBBBVATLVF6946-30-15 18:20:00 Test Item Value Reference Range Interpretation Comments Calcium Lvl (test code = Calcium Lvl) 8.7 8.5-10.5 N [facility]ieBiadjnjLDASLCKBE3345-40-46 18:20:00 Test Item Value Reference Range Interpretation Comments Sodium Lvl (test code = Sodium Lvl) 139 135-145 N [facility]ieLbaffdlNJWGNONZZ0780-07-27 18:20:00 Test Item Value Reference Range Interpretation Comments Potassium Lvl (test code = Potassium 4.2 3.5-5.1 N Lvl) [facility]ieNaherfaSWNQTIWOO8401-20-88 18:20:00 Test Item Value Reference Range Interpretation Comments Chloride Lvl (test code = Chloride Lvl) 105 95-109 N [facility]ieRuqejvkCCYNNHVWK8732-37-28 18:20:00 Test Item Value Reference Range Interpretation Comments Glucose Lvl (test code = Glucose Lvl) 111 70-99 H [facility]ieSbrqhuiUQEEMJTWG9213-02-49 18:20:00 Test Item Value Reference Range Interpretation Comments BUN (test code = BUN) 11 7-22 N [facility]ieFncphjrIOUJRVNLK2901-49-30 18:20:00 Test Item Value Reference Range Interpretation Comments Creatinine Lvl (test code = Creatinine 0.8 0.5-1.4 N Lvl) [facility] CampusBhzeksdJTQKOGSREN2906-61-00 18:20:00 Test Item Value Reference Range Interpretation Comments Eosinophils (test code = 0.7 See_Comment N [A utomated message] The Eosinophils) system which ge nerated this result tra nsmitted reference range : <=4.0. The reference r javier was not used to int erpret this result as normal/abnormal . [facility] CampusZwvupjfAPOBXQGJJT0978-50-42 18:20:00 Test Item Value Reference Range Interpretation Comments Basophils (test code = 0.1 See_Comment N [Aut omated message] The Basophils) system which ge nerated this result tra nsmitted reference range : <=1.0. The reference r javier was not used to int erpret this result as normal/abnormal . [facility] CampusStdojlaTKJNVTXVKP1869-83-48 18:20:00 Test Item Value Reference Range Interpretation Comments Eosinophils # (test code 0.0 See_Comment N [A utomated message] The = Eosinophils #) system whic h generated this result tra nsmitted reference range : <=0.5. The reference r javier was not used to int erpret this result as normal/abnormal . [facility] CampusRgmzysbCSJBUVXAXK7074-11-49 18:20:00 Test Item Value Reference Range Interpretation Comments Basophils # (test code 0.0 See_Comment N [Aut omated message] The = Basophils #) system which generated this result tra nsmitted reference range : <=0.2. The reference r javier was not used to int erpret this result as normal/abnormal . [facility] CampusLeypgbbXVKOEFKAZL8388-23-41 18:20:00 Test Item Value Reference Range Interpretation Comments INR (test code = INR) 0.92 0.85-1.17 N [facility] CampusJvlgphzETBXYTQCFX9673-43-85 18:20:00 Test Item Value Reference Range Interpretation Comments PT (test code = PT) 12.4 s 12.0-14.7 N [facility] DallasZpjvqnlRVCNMYEWBW1603-79-22 18:20:00 Test Item Value Reference Range Interpretation Comments Prealbumin (test code = Prealbumin) 19.9 18.0-45.0 Cindy Erickson
[2022-09-30] MEDS ORDERED: NA CHLORIDE 0.9% 2,000 ML ONE (19:50)
--- NOTE | 2022-09-30 20:57 | RAD REPORT ---
EXAM DESCRIPTION: CT - Abdomen Pelvis Wo Contrast - 09/30/2022 7:58 pm CLINICAL HISTORY: ABD PAIN COMPARISON: Abdomen Pelvis W Contrast dated 06/10/2021; Abdomen Pelvis W Contrast dated 09/01/2019; Abdomen Pelvis Wo Contrast dated 07/07/2019; Abdomen Pelvis Wo Contrast dated 04/16/2019 TECHNIQUE: Thin cut axial CT imaging of the abdomen and pelvis was performed without IV contrast. Mu ltiplanar reformats were generated and reviewed. All CT scans are performed using dose optimization technique as appropriate and may include automated exposure control or mA/KV adjustment according to patient size. FINDINGS: No suspicious findings in the lung bases. The liver, spleen, and pancreas show no suspicious findings. Gallbladder and biliary tree are also wi thout suspicious finding. Symmetric renal contour, without suspicious parenchymal findings within limits of noncontrast techniq ue. No evidence of radiopaque calculi or hydroureteronephrosis. Sequelae of gastric bypass surgery and distal partial colectomy. Moderate to large stool burden throu ghout the colon. No dilated bowel loops or bowel wall thickening. No free air, free fluid or inflamma tory stranding. No hernia, mass or bulky lymphadenopathy. The urinary bladder is without significant finding. No suspicious bony findings. IMPRESSION: No acute intra-abdominal process. Moderate to large stool burden throughout the colon. Postsurgical changes as above.
[2022-09-30 21:12] LABS: Absolute Lymphocytes (CBC) 1.1 K/uL (0.7-4.9); Hematocrit 38.4 % (36.0-45.0); Lymphocytes % 13.6 % (15.3-44.8); MCV 88.7 fL (80-100); MPV 7.6 fL (7.6-11.3); RBC Red Blood Cell Count 4.33 M/uL (3.86-4.86)
[2022-09-30 21:13] LABS: Protime INR 0.97
--- NOTE | 2022-09-30 21:14 | RAD REPORT ---
EXAM DESCRIPTION: RADChest Single View09/30/2022 7:40 pm CLINICAL HISTORY: ABDOMINAL DISTENTION COMPARISON: Chest Single View dated 10/30/2020; Chest Single View dated 09/17/2020; Chest Single View d ated 11/07/2019; Chest Pa And Lat (2 Views) dated 04/16/2019 TECHNIQUE: Portable AP view of the chest. FINDINGS: Right chest wall medication port. The lungs are clear. No pneumothorax or effusion. The ca rdiomediastinal contours are unremarkable. IMPRESSION: No acute cardiopulmonary process.
[2022-09-30 21:32] LABS: ALT/SGPT 20 U/L (13-56); AST/SGOT 18 U/L (15-37); Albumin 3.6 g/dL (3.4-5.0); Alkaline Phosphatase 111 U/L (45-117); BUN Blood Urea Nitrogen 23 mg/dL (7-18); Bicarbonate 26 mEq/L (21-32); Bilirubin Total 0.2 mg/dL (0.2-1.0); Glomerular Filtration Rate 74 ml/min (=/>90); Glucose Level 125 mg/dL (74-106); Lipase 42 U/L (13-75); Magnesium 2.2 mg/dL (1.6-2.4); NT PRO-BNP 139 pg/mL (<125); Potassium 4.5 mEq/L (3.5-5.1); Protein, Total 7.2 g/dL (6.4-8.2); Sodium Level 136 mEq/L (136-145); Troponin High Sensitivity 12.4 pg/mL (<58.9)
[2022-09-30 21:33] LABS: Bilirubin Direct < 0.1 mg/dL (0-0.2)
[2022-09-30] MEDS ORDERED: PROMETHAZINE INJ 25 MG/ML AMP ONE (21:33)
--- NOTE | 2022-09-30 21:45 | ER ---
Nurse's Notes [facility] Name: Maribel Soto Age: 57 yrs Sex: Female : 1965 Arrival Date: 09/30/2022 Time: 17:42 Bed 15 Private MD: Diagnosis: Vomiting;Dehydration;Intractable nausea and vomiting, mild dehydration, constipation Presentation: 09/30 17:57 Chief complaint: EMS states: patient complained of continued vomiting for one day but ap3 has been feeling bad for approx one week. EMS administered 25mg Phenergan IM in route which helped alleviate the patients symptoms. Onset of symptoms was September 29, 2022. Care prior to arrival: Medication(s) given: Phenergan, IM. 17:57 Method Of Arrival: EMS: [facility] ap3 18:03 Coronavirus screen: At this time, the client does not indicate any symptoms associated ap3 with coronavirus-19. Ebola Screen: No symptoms or risks identified at this time. Initial Sepsis Screen: Does the patient meet any 2 criteria? No. Patient's initial sepsis screen is negative. Does the patient have a suspected source of infection? No. Patient's initial sepsis screen is negative. Risk Assessment: Do you want to hurt yourself or someone else? Patient reports no desire to harm self or others. 18:03 Acuity: LILIAN 3 ap3 Triage Assessment: 18:04 General: Appears uncomfortable, Behavior is calm, cooperative, appropriate for age. ap3 Pain: Complains of pain in abdomen Pain began 2-3 days ago. Neuro: Level of Consciousness is awake, alert, obeys commands, Oriented to person, place, time, situation. Cardiovascular: Patient's skin is warm and dry. Respiratory: Airway is patent Respiratory effort is even, unlabored, Respiratory pattern is regular, symmetrical. GI: Reports lower abdominal pain, upper abdominal pain, nausea, vomiting. 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 - Social history:: Smoking status: Patient denies any tobacco usage or history of. Screenin:05 Abuse screen: Denies threats or abuse. Nutritional screening: No deficits noted. ap3 Tuberculosis screening: No symptoms or risk factors identified. 21:56 [facility] ED Fall Risk Assessment (Adult) Score/Fall Risk Level 0 - 2 = Low Risk. as6 Assessment: 21:00 GI: Reports nausea. as6 22:08 Reassessment: Patient appears in no apparent distress at this time. Patient states as6 feeling better. Vital Signs: 18:03 Pulse 96; Resp 17; Temp 98.6; Pulse Ox 97% ; Weight 113.4 kg; ap3 18:06 BP 120 / 99; ap3 19:30 BP 135 / 93; Pulse 85; Resp 18 S; Pulse Ox 98% on R/A; as6 20:30 BP 135 / 98; Pulse 82; Resp 20 S; Pulse Ox 100% on R/A; as6 21:55 BP 132 / 87; Pulse 77; Resp 13 S; Pulse Ox 99% on R/A; as6 ED Course: 17:57 Patient arrived in ED. ap3 18:04 Triage completed. ap3 18:05 Arm band placed on right wrist. ap3 19:05 Mj Camacho MD is Attending Physician. evelia 19:29 John Anaya, RN is Primary Nurse. as6 19:42 XRAY Chest (1 view) In Process Unspecified. EDMS 20:01 CT Abd/Pelvis - Without Contrast In Process Unspecified. EDMS 20:03 Attending Physician role handed off by Mj Camacho MD sp4 20:03 David Coronel MD is Attending Physician. sp4 21:00 Accessed Port-a-Cath. using accessed w/ # 20 [place] needle, ,sterile technique, per [facility] protocol. Clean \T\ dry. Dressing intact. Good blood return. Flushes easily. 21:53 No provider procedures requiring assistance completed. as6 21:55 Placed in gown. Bed in low position. Call light in reach. Side rails up X2. as6 22:08 IV discontinued, intact, bleeding controlled, No redness/swelling at site. Pressure as6 dressing applied. Administered Medications: 20:56 Drug: NS 0.9% IV 1000 ml Route: IV; Rate: 1 bolus; Site: Port-a-cath; kd3 22:07 Follow up: Response: No adverse reaction; IV Status: Completed infusion; IV Intake: as6 1000ml 20:57 Drug: NS 0.9% IV 1000 ml Route: IV; Rate: 1 bolus; Site: Port-a-cath; kd3 22:07 Follow up: Response: No adverse reaction; IV Status: Completed infusion; IV Intake: as6 1000ml 21:33 Drug: Promethazine IM 25 mg Route: IM; Site: right deltoid; as6 22:07 Follow up: Response: No adverse reaction as6 Medication: 21:56 VIS not applicable for this client. as6 Intake: 22:07 IV: 1000ml; Total: 1000ml. as6 22:07 IV: 1000ml; Total: 2000ml. as6 Outcome: 21:45 Discharge ordered by . sp4 21:56 Discharged to home ambulatory. as6 21:56 Condition: stable 22:07 Discharge instructions given to patient, Instructed on discharge instructions, follow as6 up and referral plans. medication usage, Demonstrated understanding of instructions, follow-up care, medications, Prescriptions given X 2. 22:08 Patient left the ED. as6 Signatures: Dispatcher [employer] EDMS Mj Camacho MD MD cha Prokisch, Amanda, RN RN ap3 Slawson, Ashby, RN RN as6 Paulette Fairbanks RN RN kd3 David Coronel MD MD sp4
--- NOTE | 2022-09-30 21:46 | EDPHYS ---
Physician Documentation [facility] Name: Maribel Soto Age: 57 yrs Sex: Female : 1965 Arrival Date: 09/30/2022 Time: 17:42 Bed 15 Private MD: ED Physician David Coronel HPI: 09/30 19:34 This 57 yrs old Female presents to ER via EMS with complaints of evelia Nausea/Vomiting. 19:34 The patient presents to the emergency department with nausea, vomiting, that is evelia continuous. Onset: The symptoms/episode began/occurred 2 day(s) ago. Possible causes: unknown. The symptoms are aggravated by nothing. The symptoms are alleviated by nothing. Associated signs and symptoms: Pertinent positives: abdominal pain, nausea, vomiting. Severity of symptoms: At their worst the symptoms were mild in the emergency department the symptoms are unchanged. The patient has experienced similar episodes in the past, several times. 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 - Social history:: Smoking status: Patient denies any tobacco usage or history of. ROS: 19:35 Constitutional: Negative for fever, chills, and weight loss, Eyes: Negative for injury, evelia pain, redness, and discharge, ENT: Negative for injury, pain, and discharge, Neck: Negative for injury, pain, and swelling, Cardiovascular: Negative for chest pain, palpitations, and edema, Respiratory: Negative for shortness of breath, cough, wheezing, and pleuritic chest pain, Back: Negative for injury and pain, : Negative for injury, bleeding, discharge, and swelling, MS/Extremity: Negative for injury and deformity, Skin: Negative for injury, rash, and discoloration, Neuro: Negative for headache, weakness, numbness, tingling, and seizure, Psych: Negative for depression, anxiety, suicide ideation, homicidal ideation, and hallucinations, Allergy/Immunology: Negative for hives, rash, and allergies, Endocrine: Negative for neck swelling, polydipsia, polyuria, polyphagia, and marked weight changes, Hematologic/Lymphatic: Negative for swollen nodes, abnormal bleeding, and unusual bruising. 19:35 Abdomen/GI: Positive for abdominal pain, nausea and vomiting, diarrhea. Exam: 19:35 Constitutional: This is a well developed, well nourished patient who is awake, alert, evelia and in no acute distress. Head/Face: Normocephalic, atraumatic. Eyes: Pupils equal round and reactive to light, extra-ocular motions intact. Lids and lashes normal. Conjunctiva and sclera are non-icteric and not injected. Cornea within normal limits. Periorbital areas with no swelling, redness, or edema. ENT: Nares patent. No nasal discharge, no septal abnormalities noted. Tympanic membranes are normal and external auditory canals are clear. Oropharynx with no redness, swelling, or masses, exudates, or evidence of obstruction, uvula midline. Mucous membranes moist. Neck: Trachea midline, no thyromegaly or masses palpated, and no cervical lymphadenopathy. Supple, full range of motion without nuchal rigidity, or vertebral point tenderness. No Meningismus. Chest/axilla: Normal chest wall appearance and motion. Nontender with no deformity. No lesions are appreciated. Cardiovascular: Regular rate and rhythm with a normal S1 and S2. No gallops, murmurs, or rubs. Normal PMI, no JVD. No pulse deficits. Respiratory: Lungs have equal breath sounds bilaterally, clear to auscultation and percussion. No rales, rhonchi or wheezes noted. No increased work of breathing, no retractions or nasal flaring. Back: No spinal tenderness. No costovertebral tenderness. Full range of motion. Female : Normal external genitalia. Skin: Warm, dry with normal turgor. Normal color with no rashes, no lesions, and no evidence of cellulitis. MS/ Extremity: Pulses equal, no cyanosis. Neurovascular intact. Full, normal range of motion. Neuro: Awake and alert, GCS 15, oriented to person, place, time, and situation. Cranial nerves II-XII grossly intact. Motor strength 5/5 in all extremities. Sensory grossly intact. Cerebellar exam normal. Normal gait. Psych: Awake, alert, with orientation to person, place and time. Behavior, mood, and affect are within normal limits. 19:35 Abdomen/GI: Inspection: abdomen appears normal, Bowel sounds: active, Palpation: mild abdominal tenderness, in all quadrants, Liver: no appreciated palpable abnormalities, Hernia: not appreciated. 20:00 ECG was reviewed by the Attending Physician. [facility] Vital Signs: 18:03 Pulse 96; Resp 17; Temp 98.6; Pulse Ox 97% ; Weight 113.4 kg; ap3 18:06 BP 120 / 99; ap3 19:30 BP 135 / 93; Pulse 85; Resp 18 S; Pulse Ox 98% on R/A; as6 20:30 BP 135 / 98; Pulse 82; Resp 20 S; Pulse Ox 100% on R/A; as6 21:55 BP 132 / 87; Pulse 77; Resp 13 S; Pulse Ox 99% on R/A; as6 MDM: 19:05 Patient medically screened. [facility] 19:36 Differential diagnosis: Nonspecific abd pain, gastritis, pancreatitis, diverticulitis, evelia viral gastroenteritis, gastroenteritis. Data reviewed: vital signs, nurses notes, EMS record, lab test result(s), EKG, radiologic studies, CT scan, plain films. Consideration of Admission/Observation Escalation of care including admission/observation considered. I considered the following discharge prescriptions or medication management in the emergency department Medications were administered in the Emergency Department. See MAR. Test considered but Not performed: MRI: NO MRI ABDOMEN /PELVIS. Historians other than the Patient: EMS: DW WITH EMS. Care significantly affected by the following chronic conditions: Obesity, ANXIETY ASTHMA, CHRONIC PAIN, FIBROMYALGIA. Counseling: I had a detailed discussion with the patient and/or guardian regarding: the historical points, exam findings, and any diagnostic results supporting the discharge/admit diagnosis, lab results, radiology results, the need for further work-up and treatment in the hospital. 21:42 ED course: Patient care assumed from Dr. Camacho. Patient's labs revealed mild sp4 elevation in blood glucose 125, otherwise no signs of renal failure,. Additionally CBC is normal, LFTs are normal, lipase is normal, troponin is normal, coagulation panel is normal. CT revealed no acute intra-abdominal process, moderate to large stool burden in the colon. There is sequela of gastric bypass surgery and distal partial colectomy. No sign of bowel obstruction, no free air, no inflammatory stranding, no hernia or mass.. 09/30 19:05 Order name: Basic Metabolic Panel; Complete Time: 21:37 [facility] 09/30 19:05 Order name: CBC with Diff; Complete Time: 21:37 [facility] 09/30 19:05 Order name: LFT's; Complete Time: 21:37 [facility] 09/30 19:05 Order name: Magnesium; Complete Time: 21:37 [facility] 09/30 19:05 Order name: NT PRO-BNP; Complete Time: 21:37 [facility] 09/30 19:05 Order name: PT-INR; Complete Time: 21:37 [facility] 09/30 19:05 Order name: Troponin HS; Complete Time: 21:37 [facility] 09/30 19:06 Order name: Lipase; Complete Time: 21:37 [facility] 09/30 19:05 Order name: XRAY Chest (1 view); Complete Time: 21:37 [facility] 09/30 19:13 Order name: CT Abd/Pelvis - Without Contrast; Complete Time: 21:37 [facility] 09/30 19:05 Order name: EKG; Complete Time: 19:06 [facility] 08 19:05 Order name: Cardiac monitoring; Complete Time: 20:42 [facility] 09/30 19:05 Order name: EKG - Nurse/Tech; Complete Time: 20:05 [facility] 09/30 19:05 Order name: IV Saline Lock; Complete Time: 20:57 [facility] 09/30 19:05 Order name: Labs collected and sent; Complete Time: 20:57 [facility] 08 19:05 Order name: O2 Per Protocol; Complete Time: 20:43 [facility] 09/30 19:05 Order name: O2 Sat Monitoring; Complete Time: 20:43 [facility] EC:00 Rate is 84 beats/min. Rhythm is regular. QRS Hollister is Normal. ID interval is normal. QRS evelia interval is normal. QT interval is normal. No Q waves. T waves are Normal. No ST changes noted. Clinical impression: NSR w/ Non-specific ST/T Changes and No evidence of ischemia. Interpreted by me. Reviewed by me. Administered Medications: 20:56 Drug: NS 0.9% IV 1000 ml Route: IV; Rate: 1 bolus; Site: Port-a-cath; kd3 22:07 Follow up: Response: No adverse reaction; IV Status: Completed infusion; IV Intake: as6 1000ml 20:57 Drug: NS 0.9% IV 1000 ml Route: IV; Rate: 1 bolus; Site: Port-a-cath; kd3 22:07 Follow up: Response: No adverse reaction; IV Status: Completed infusion; IV Intake: as6 1000ml 21:33 Drug: Promethazine IM 25 mg Route: IM; Site: right deltoid; as6 22:07 Follow up: Response: No adverse reaction as6 Disposition Summary: 09/30/22 21:45 Discharge Ordered Location: Home sp4 Problem: new sp4 Symptoms: have improved sp4 Condition: Stable sp4 Diagnosis - Vomiting sp4 - Dehydration sp4 - Intractable nausea and vomiting, mild dehydration, constipation sp4 Followup: evelia - With: Private Physician - When: 2 - 3 days - Reason: Recheck today's complaints, Continuance of care, Re-evaluation by your physician Discharge Instructions: - Discharge Summary Sheet evelia - Vomiting, Adult evelia Prescriptions: - promethazine 25 mg Oral Tablet - take 1 tablet by ORAL route every 6 hours As needed; 20 tablet; Refills: 0, evelia Product Selection Permitted - promethazine 12.5 mg Rectal suppository - insert 2 suppository by RECTAL route every 6 hours; 24 suppository; Refills: 0, sp4 Product Selection Permitted Signatures: Dispatcher [employer] Mj Montague MD MD cha Prokisch, Amanda RN JAYDEN [email or web address] John Anaya RN RN as6 Paulette Fairbanks RN RN kd3 David Coronel MD MD sp4
[2022-09-30 23:00] VITALS: TEMP 98.6
[2022-09-30 23:07] VITALS: BP 132/87; O2SAT 99
--- NOTE | 2022-10-02 16:01 | EKG ---
Test Date: 2022-09-30 Test Time: 19:49:19 [employer]ician [employer]: ÁNGEL MEASUREMENT RESULTS: Intervals: Rate: 84 NJ: 188 QRSD: 86 QT: 372 QTc: 439 Farnam: P: 21 NJ: 188 QRS: 7 T: 38 INTERPRETIVE STATEMENTS: Normal sinus rhythm Normal ECG Compared to ECG 10/30/2020 21:05:46 No significant changes Electronically Signed On 10-02-22 15:57:48 CDT by Tom Johnston
== END 2022-09-30 22:08 | disposition home or self-care (01) ==
LOC: ER 17:42
DX: E86.0 Dehydration (principal); K59.00 Constipation, unspecified; Z88.0 Allergy status to penicillin; Z88.1 Allergy status to other antibiotic agents; Z88.8 Allergy status to other drugs, medicaments and biological substances
CPT/HCPCS: 85025; 80048; 36415; 83735; 85610; 80076; 84484; 83690; 83880; 74176; 71045; 96360; 96372; 99285; J2550; J7030; 93005

== ENCOUNTER 2023-04-05 16:49 | Emergency (ER) | payer OTHER ==
--- OUTSIDE RECORDS SUMMARY | 2023-04-05 17:05 | XMS REPORT | Continuity of Care Document ---
:1965 Author Organization [facility] t Address [address] [place] [address] Care Team Providers Name Role Phone Juliana Carver MD Primary Care Physician [phone] Robert Kruger Attending Clinician JAVAD HOUSTON Attending [...] GASTRITIS 00:00: Herm hernandez Active 00 09/13/2013 [facility] VOMITING, VOMITING, Diagnosis Active 2013-09-13 Memoria WEAKNESS WEAKNESS 09-13 14:41:00 l Active 00:00: [place] 09/13/2013 00 [facility] ABDOMINAL ABDOMINAL Diagnosis Active 2011-12-04 Memoria PAIN,VOMIT PAIN,VOMIT 12-02 12:49:00 l ING ING Active 00:00: Uday n 12/03/2011 [facility] Anemia Anemia Problem Resolve 2021-09-02 Mem oria (disorder) (disorder) d 21:39:08 l Resolved [place] Problem 09/02/2021 [facility] Asthma Asthma Problem Resolve 2021-09-02 Mem oria (disorder) (disorder) d 21:39:08 l Resolved Dre Problem 09/02/2021 [facility] Chronic Chronic Problem Resolve 2021-09-02 M emoria fatigue fatigue d 21:39:08 l syndrome syndrome Uday n (disorder) (disorder) Resolved Problem 09/02/2021 [facility] Diverticul Diverticu Problem Resolve 2021-09-02 Memoria ar disease lar d 21:39:08 l (disorder) disease Vani nn (disorder) Resolved Problem 09/02/2021 [facility] Fibromyosi Fibromyos Problem Resolve 2021-09-02 Memoria tis itis d 21:39:08 l (disorder) (disorder) He rmann Resolved Problem 09/02/2021 [facility] Migraine Migraine Problem Resolve 2021-09-02 Memoria (disorder) (disorder) d 21:39:08 l Resolved [place] Problem 09/02/2021 [facility] Ulcer Ulcer Problem Resolve 2021-09-02 Bipin bernardo (disorder) (disorder) d 21:39:08 l Resolved Dre Problem 09/02/2021 [facility] Headache Headache Problem Active 2022-07-06 Memoria (finding) (finding) 23:42:30 l Active Dre Problem 07/06/2022 [facility] Lupus Lupus Problem Active 2022-07-06 [facility] erythemato erythemato 23:42:30 l chace chace [place] (disorder) (disorder) Active Problem 07/06/2022 [facility] Pain Pain Problem Active 2022-07-06 Memor ia (finding) (finding) 23:42:30 l Active [place] Problem 07/06/2022 [facility] Anxiety Anxiety Problem Active 2022-07-06 Me moria (finding) (finding) 23:42:30 l Active Dre Problem 07/06/2022 [facility] Diabetes Diabetes Problem Active 2022-07-06 Memoria mellitus mellitus 23:42:30 l (disorder) (disorder) He rmann Active Problem 07/06/2022 [facility] G[facility] Problem Active 2022-07-06 Memoria sis esis 23:42:30 l (disorder) (disorder) He rmann Active Problem 07/06/2022 [facility] Hand pain Hand pain Problem Active 2022-07-06 Memoria (finding) (finding) 23:42:30 l Active [place] Problem 07/06/2022 [facility] Hypothyroi Hypothyro Problem Active 2022-07-06 Memoria dism idism 23:42:30 l (disorder) (disorder) He ann Active Problem 07/06/2022 [facility] Insomnia Insomnia Problem Active 2022-07-06 Memoria (disorder) (disorder) 23:42:30 l Active Dre Problem 07/06/2022 [facility] Irritable Irritable Problem Active 2022-07-06 Memoria colon colon 23:42:30 l (disorder) (disorder) He ann Active Problem 07/06/2022 [facility] Migraine Migraine Problem Active 2022-07-06 Memoria without without 23:42:30 l aura aura Dre (disorder) (disorder) Active Problem 07/06/2022 [facility] Seizure Seizure Problem Active 2022-07-06 Me moria (finding) (finding) 23:42:30 l Active [place] Problem 07/06/2022 [facility] Weakness Weakness Problem Active 2022-07-06 Memoria of hand of hand 23:42:30 l (finding) (finding) Herm hernandez Active Problem 07/06/2022 [facility] Headache Headache Problem Active 2011-12-12 Memoria Active 08:58:08 l Problem [place] 12/12/2011 [facility] Lupus Lupus Problem Active 2011-12-12 Memor ia Active 08:58:08 l Problem Dre 12/12/2011 [facility] Pain Pain Problem Active 2011-12-12 Memor ia Active 08:58:08 l Problem [place] 12/12/2011 [facility] ABDMNAL ABDMNAL Diagnosis Active 2013-09-14 Memoria PAIN PAIN 09:19:00 l UNSPCF UNSPCF [place] SITE SITE Active [facility] GASTRITIS GASTRITIS Diagnosis Active 2013-09-14 Memoria NEC NEC 09:19:00 l Active [facility] ADMINISTRT ADMINISTR Diagnosis Active 2011-12-04 Memoria VE ENCOUNT TVE 12:49:00 l NOS ENCOUNT [place] NOS Active [facility] Bipolar Bipolar Problem Resolve 2021-09-02 2021-09-02 Memoria disorder disorder d - 21:39:08 21:39:08 l (disorder) (disorder) 00:00: He rmann Resolved 00 09/14/2013 Problem 09/02/2021 [facility] Allergies, Adverse Reactions, Alerts Allergy Allergy Status Severity Reaction(s) Onset Inactive Treating Comm ents Source Name Type Date Date Clinician Baclofen Propensi Active Swelling Meth rita ty to 06-07 adverse 00:00: Hospita reaction 00 l s to drug Penicill Propensi Active Unknown Metho di ins ty to Reaction 06-07 adverse 00:00: Hospita reaction 00 l s to drug Ondanset Propensi Active GI Method i sj Hcl ty to Intolerance 06-07 adverse 00:00: Hospita reaction 00 l s to drug penicill penicill Active Memori a ins ins l Dre baclofen baclofen Active Memori a l Dre Zofran Zofran Active Memoria l [place] Food Food Active Memoria Eggs Eggs l [place] penicill Drug Active 69252 [facility] Zofran Drug Active 15094 [facility] Opana ER Drug Active rash [facility] penicill Drug Active 43812 [facility] Zofran Drug Active 84978 [facility] Opana ER Drug Active rash [facility] penicill Drug Active 70138 [facility] Zofran Drug Active 79536 [facility] Opana ER Drug Active rash [facility] penicill Drug Active 28179 [facility] Zofran Drug Active 76974 [facility] Opana ER Drug Active rash [facility] penicill Drug Active 73465 [facility] Zofran Drug Active 50391 [facility] Opana ER Drug Active rash [facility] penicill Drug Active 11103 [facility] Zofran Drug Active 25608 [facility] Opana ER Drug Active rash [facility] penicill Drug Active 83735 [facility] Zofran Drug Active 94007 [facility] Opana ER Drug Active rash [facility] penicill Drug Active 03650 [facility] Zofran Drug Active 36491 [facility] Opana ER Drug Active rash [facility] Family History Family Member Diagnosis Comments Start Date Stop Date Source Natural father Hypertension [facility] Paternal grandmother [facility] Social History Social Habit Start Date Stop Date Quantity Comments Source Gender identity 2022-08-06 Identifies as [facility] 10:19:15 female gender Hospital (finding) Sexual orientation [facility] History SDOH [facility] Alcohol Std Drinks Hospit al History SDOK [facility] Alcohol Binge Hospital History of Social 2019-12-03 2019-12-[address] function 00:00:00 00:00:00 Hospital Alcohol intake 2019-12-03 2019-12-03 Lifetime [employer]ec[employer]ism 00:00:00 00:00:00 non-drinker Hospital (finding) Tobacco use and 2019-06-07 2019-06-07 Smokeless tobacco Me thodist exposure 00:00:00 00:00:00 non-user Hospital History SDOH 2019-06-07 2019-06-07 1 [facility] Alcohol Frequency 00:00:00 00:00:00 Hospita l Sex Ass[birth year] At [birth year] F [facility] 00:00:00 00:00:00 Hospital Smoking Status Start Date Stop Date Source Tobacco smoking status [facility] Medications Ordered Filled Start Stop Current Ordering Indication Dosage Frequency Signature Comments Components Source Medication Medication Date Date Medication? Clinician (SIG) Name Name naratriptan Yes See Memori a 2.5 mg oral 4-07 Instructio l tablet 14:51: ns, TAKE [place] 00 ONE (1) TABLET(S) BY MOUTH AT ONSET OF HEADACHE. 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 naratriptan 2021-0 Yes See Memori a 2.5 mg oral 4-07 Instructio l tablet 14:51: ns, TAKE [place] 00 ONE (1) TABLET(S) BY MOUTH AT ONSET OF HEADACHE. 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 naratriptan 2021-0 Yes See Memori a 2.5 mg oral 4-07 Instructio l tablet 14:51: ns, TAKE Dre 00 ONE (1) TABLET(S) BY MOUTH AT ONSET OF HEADACHE. 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 naratriptan 2021-0 Yes See Memori a 2.5 mg oral 1-24 Instructio l tablet 14:43: ns, TAKE Dre 00 ONE (1) TABLET(S) BY MOUTH AT ONSET OF HEADACHE. 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 naratriptan 2021-0 Yes See Memori a 2.5 mg oral 1-24 Instructio l tablet 14:43: ns, TAKE Dre 00 ONE (1) TABLET(S) BY MOUTH AT ONSET OF HEADACHE. 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 naratriptan 2021-0 Yes See Memori a 2.5 mg oral 1-24 Instructio l tablet 14:43: ns, TAKE [place] 00 ONE (1) TABLET(S) BY MOUTH AT ONSET OF HEADACHE. 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, Weight Rimegepant 2-0 Yes 75 mg = 1 Me moria 75 MG 1-12 tab, PO, l Disintegrat 16:32: Q48H, # 15 [place] ing Oral 00 tab, 1 Tablet Refill(s), [Nurtec] Pharmacy: [facility], 170.18, cm, 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, 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, 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, kg, 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, Weight Rimegepant 2022-0 Yes 75 mg = 1 Me moria 75 MG 1-12 tab, PO, l Disintegrat 16:32: Q48H, # 15 [place] ing Oral 00 tab, 1 Tablet [facility], 170.18, cm, 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 MAY REPEAT IN 2 HOURS NEEDED. 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 naratriptan 2021-0 Yes 2.5 mg = 1 Memoria 2.5 mg oral 1-12 tab, PO, l tablet 16:31: PRN, PRN [place] 00 migraine, TAKE ONE (1) TABLET(S) BY MOUTH AT ONSET OF HEADACHE. MAY REPEAT IN 2 HOURS NEEDED. 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 naratriptan 2021-0 Yes 2.5 mg = 1 Memoria 2.5 mg oral 1-12 tab, PO, l tablet 16:31: PRN, PRN [place] 00 migraine, TAKE ONE (1) TABLET(S) BY MOUTH AT ONSET OF HEADACHE. MAY REPEAT IN 2 HOURS NEEDED. MAX DOSE OF 2 TABLETS DAILY., # 9 tab, 1 Refill(s), Pharmacy: [facility] [place], 170.18, cm, 06/06/21 9:33:00 He. YOSEF.. promethazin Yes TAKE ONE Me moria e 50 mg 1-12 (1) l oral tablet 16:03: TABLET(S) H ermann 00 BY MOUTH FOUR TIMES A DAY. eszopiclone Yes TAKE ONE Me moria 2 mg oral 1-12 (1) l tablet 16:03: TABLET(S) Uday n 00 BY MOUTH AT BEDTIME. hyoscyamine Yes TAKE ONE Me moria 0.125 mg 1-12 (1) TO TWO l oral 16:03: (2) [place] tablet, 00 TABLET(S) disintegrat BY MOUTH ing EVERY FOUR TO SIX HOURS. naratriptan No TAKE ONE Me moria 2.5 mg oral 1-12 (1) l tablet 16:03: TABLET(S) Uday n 00 BY MOUTH AT ONSET OF HEADACHE. MAY REPEAT IN 2 HOURS NEEDED. MAX DOSE OF 2 TABLETS DAILY. naratriptan No TAKE ONE Me moria 2.5 mg oral 1-12 (1) l tablet 16:03: TABLET(S) Uday n 00 BY MOUTH AT ONSET OF HEADACHE. MAY REPEAT IN 2 HOURS NEEDED. MAX DOSE OF 2 TABLETS DAILY. promethazin Yes TAKE ONE Me moria e 50 mg 1-12 (1) l oral tablet 16:03: TABLET(S) H ermann 00 BY MOUTH FOUR TIMES A DAY. eszopiclone 0 Yes TAKE ONE Me moria 2 mg oral 1-12 (1) l tablet 16:03: TABLET(S) Uday n 00 BY MOUTH AT BEDTIME. hyoscyamine 0 Yes TAKE ONE Me moria 0.125 mg 1-12 (1) TO TWO l oral 16:03: (2) [place] tablet, 00 TABLET(S) disintegrat BY MOUTH ing EVERY FOUR TO SIX HOURS. naratriptan No TAKE ONE Me moria 2.5 [...] (1) TO TWO l oral 16:03: (2) [place] tablet, 00 TABLET(S) disintegrat BY MOUTH ing EVERY FOUR TO SIX HOURS. hydromorpho 2-0 Yes 4 mg = 1 Me moria ne 4 mg 1-12 tab, PO, l oral tablet 16:02: Q4H, PRN He rmann 00 Pain, 0 Refill(s) omeprazole 2022-0 Yes 40 mg = 1 Me moria 40 mg oral 1-12 cap, PO, l delayed 16:02: Daily, # Uday n release 00 30 cap, 0 capsule Refill(s) hydromorpho 2022-0 Yes 4 mg = 1 Me moria ne 4 mg 1-12 tab, PO, l oral tablet 16:02: Q4H, PRN He rmann 00 Pain, 0 Refill(s) omeprazole 2022-0 Yes 40 mg = 1 Me moria 40 mg oral 1-12 cap, PO, l delayed 16:02: Daily, # Uday n release 00 30 cap, 0 capsule Refill(s) hydromorpho 2022-0 Yes 4 mg = 1 Me moria ne 4 mg 1-12 tab, PO, l oral tablet 16:02: Q4H, PRN He rmann 00 Pain, 0 Refill(s) omeprazole 2022-0 Yes 40 mg = 1 Me moria 40 mg oral 1-12 cap, PO, l delayed 16:02: Daily, # Uday n release 00 30 cap, 0 capsule Refill(s) zonisamide 2020-0 Yes [id number] TAKE THREE [facility] (ZONEGRAN[facility] 4-23 (3) st 100 MG 00:00: CAPSULE(S) Hospi ta capsule 00 BY MOUTH l ONCE A DAY. zonisamide Yes [id number] TAKE THREE [facility] (ZONEGRAN) 4-23 (3) st 100 MG 00:00: CAPSULE(S) Hospi ta capsule 00 BY MOUTH l ONCE A DAY. zonisamide Yes [id number] TAKE THREE [facility] (ZONEGRAN) 4-23 (3) st 100 MG 00:00: CAPSULE(S) Hospi ta capsule 00 BY MOUTH l ONCE A DAY. levothyroxi 2019- Yes 75ug QD Take 75 Met hodi ne 1-[address] (SYNTHROID) 00:00: mouth Hospi ta 75 mcg 00 every l tablet morning. levothyroxi 2020- Yes 75ug QD Take 75 Met hodi ne 1-[address] (SYNTHROID) 00:00: mouth Hospi ta 75 mcg 00 every l tablet morning. levothyroxi 2019- Yes 75ug QD Take 75 Met hodi [...] 250 MG 41 daily. l tablet erythromyci 2019- Yes 250mg QD Take 250 M ethodi [...] times a l day. hydromorPHO 2019-05 Yes [id number] 4mg Q4H Take 4 mg [facility] NE [...] times a l day. hydromorPHO 2019-05 Yes [id number] 4mg Q4H Take 4 mg [facility] NE [...] times a l day. hydromorPHO 2019-05 Yes [id number] 4mg Q4H Take 4 mg [facility] NE 0-[address] (DILAUDID) 15:29: every 4 [facility]osp [facility] 4 MG tablet 22 (four) l hours as needed for moderate pain .acute pain. gabapentin Yes [id number] 600mg Q.[id number] Take 1 [facility] (NEURONTIN) 5-[id number] 600 mg 00:00: 3D (600 mg Hospita tablet 00 total) by l mouth 3 (three) times a day. gabapentin Yes [id number] 600mg Q.[id number] Take 1 [facility] (NEURONTIN) 5-[id number] 600 mg 00:00: 3D (600 mg Hospita tablet 00 total) by l mouth 3 (three) times a day. gabapentin Yes [id number] 600mg Q.[id number] Take 1 [facility] (NEURONTIN) 5-[id number] 600 mg 00:00: 3D (600 mg Hospita tablet 00 total) by l mouth 3 (three) times a day. heparin Yes Notes: Memoria flush 09-24 (Same as: l 19:05: Heparin [place] 00 Lock Flush) heparin Yes Notes: Memoria flush 09-24 (Same as: l 19:05: Heparin Dre 00 Lock Flush) heparin Yes Notes: Memoria flush 09-24 (Same as: l 19:05: Heparin Dre 00 Lock Flush) heparin, No 500 unit, Bipin bernardo porcine 09-24 Route: IV, l 18:41: ONCE, [place] 00 Dosing Weight 72.727, kg, Start date: 09/24/13 13:41:00, Stop date: 09/24/13 13:41:00 heparin, No 500 unit, Bipin bernardo porcine 09-24 Route: IV, l 18:41: ONCE, Dre 00 Dosing Weight 72.727, kg, Start date: 09/24/13 13:41:00, Stop date: 09/24/13 13:41:00 heparin, No 500 unit, Bipin bernardo porcine 09-24 Route: IV, l 18:41: ONCE, Dre Dosing Weight 72.727, kg, Start date: 09/24/13 [...] 4-30 Enteral l Oral 23:00: feeds may [place] Suspension 00 interfere with the absorption of [...] Memori a 4-30 (sodium l 14:33: ferric [place] 00 gluconate complex (elemental iron) 62.5 mg/5 ml INJ) "Limited stability. Use immediatel y after admixture" (Same as: Ferrlecit) Ferrlecit No Notes: Memori a 4-30 (sodium l 14:33: ferric Dre 00 gluconate complex (elemental iron) 62.5 mg/5 ml INJ) "Limited stability. Use immediatel y after admixture" (Same as: Ferrlecit) Magnesium 2014-0 No 2 gm, 50 Bipin bernardo Sulfate 4-30 mL, Route: l 14:32: IVPB, Drug Dre 00 form: INJ, ONCE, Dosing Weight 72.727, kg, Total dose = 2 gm, Start date: 09/22/13 9:32:00, Duration: 1 doses or times, Stop date: 09/22/13 9:32:00 Magnesium 2014-0 No 2 gm, 50 Bipin bernardo Sulfate 4-30 mL, Route: l 14:32: IVPB, Drug Dre 00 form: INJ, ONCE, Dosing Weight 72.727, kg, Total dose = 2 gm, Start date: 09/22/13 9:32:00, Duration: 1 doses or times, Stop date: 09/22/13 9:32:00 Magnesium 2014-0 No 2 gm, 50 Bipin bernardo Sulfate 4-30 mL, Route: l 14:32: IVPB, Drug Dre 00 form: INJ, ONCE, Dosing Weight 72.727, kg, Total dose = 2 gm, Start date: 09/22/13 9:32:00, Duration: 1 doses or times, Stop date: 09/22/13 9:32:00 Ketorolac No 4 days Memor ia - l 23:00: [place] 00 Ketorolac No 4 days Memor ia 09-20 l 23:00: Ketorolac No 4 days Memor ia - l 23:00: Dre 00 Hydromorpho No 6 mg, 30 Me moria ne 4-28 mL, Route: l 22:30: IV, BIT SHAVER [place] 00 Dose: 0.2 mg, BIT SHAVER Lockout: 10 minutes, 4 Hour Limit (In MG): 6, Drug Form: INJ, Continuous , Start date: 09/20/13 17:30:00, Duration: 30 day, Stop date: 10/20/13 17:29:00 Hydromorpho No 6 mg, 30 Me moria ne 4-28 mL, Route: l 22:30: IV, BIT SHAVER [place] 00 Dose: 0.2 mg, BIT SHAVER Lockout: 10 minutes, 4 Hour Limit (In MG): 6, Drug Form: INJ, Continuous , Start date: 09/20/13 17:30:00, Duration: 30 day, Stop date: 10/20/13 17:29:00 Hydromorpho No 6 mg, 30 Me moria ne 4-28 mL, Route: l 22:30: IV, BIT SHAVER [place] 00 Dose: 0.2 mg, BIT SHAVER Lockout: 10 minutes, 4 Hour Limit (In [...] / 1,000, Sodium Start Lactate date: 0.028 14 MEQ/ML 17:18:00, Injectable Duration: Solution 30 day, Stop date: 10/20/13 17:17:00 Naloxone No Notes: Memoria 09-20 Same as l 22:18: Narcan [place] 00 enalaprilat No Notes: Bipin bernardo 09-20 (Same as: l 22:18: Vasotec-IV Dre ) Ondansetron No Notes: Bipin bernardo 09-20 (Same as: l 22:18: Zofran) [place] Promethazin No Notes: Do M emoria e 09-20 not give l 22:18: IV push. [place] 00 (Same as: Phenergan) Calcium No 1,000 mL, Memor ia Chloride 09-20 Rate: 125 l 0.0014 22:18: ml/hr, Dre MEQ/ML / 00 Infuse Potassium over: 8 Chloride hr, Route: 0.004 IV, Dosing MEQ/ML / Weight Sodium 72.727 kg, Chloride Total 0.103 Volume: MEQ/ML / 1,000, Sodium Start Lactate date: 0.028 14 MEQ/ML 17:18:00, Injectable Duration: Solution 30 day, Stop date: 10/20/13 17:17:00 Naloxone No Notes: Memoria 09-20 Same as l 22:18: Narcan Dre enalaprilat No Notes: Bipin bernardo 09-20 (Same as: l 22:18: Vasotec-IV Dre ) Ondansetron No Notes: Bipin bernardo 09-20 (Same as: l 22:18: Zofran) Dre Promethazin No Notes: Do M emoria e 09-20 not give l 22:18: IV push. [place] 00 (Same as: Phenergan) Calcium No 1,000 mL, Memor ia Chloride 09-20 Rate: 125 l 0.0014 22:18: ml/hr, [place] MEQ/ML / 00 Infuse Potassium over: 8 [...] of acetaminop hen Ofirmev No Notes: Memoria - Infuse l 22:17: over 15 [place] 00 minutes Do not exceed 4gm/day of [...] l 20:54: Dilaudid Morphine No Notes: Memoria 4 (Same l 20:54: as:MORPhin e Sulfate) Promethazin No Notes: Do M emoria e 4-28 not give l 20:54: IV push. [place] 00 (Same as: Phenergan) Meperidine No Notes: Memor ia 4-28 (Same As: l 20:54: Demerol) [place] 00 Flumazenil No Notes: Memor ia 4-28 (Same as: l 20:54: Romazicon) Dre Naloxone No Notes: Memoria 4-28 Same as l 20:54: Narcan Dre Labetalol No Notes: Memori a 4-28 (Same as: l 20:54: Normodyne, [place] 00 Trandate) Push over 2 minutes Give bolus over 2-3 minutes. Hydromorpho No Notes: Bipin bernardo ne 4-28 Same as: l 20:54: Dilaudid [place] Morphine No Notes: Memoria 4-28 (Same l 20:54: as:MORPhin [place] 00 e Sulfate) Promethazin No Notes: Do M emoria e 4-28 not give l 20:54: IV push. Dre 00 (Same as: Phenergan) Meperidine No Notes: Memor ia 4-28 (Same As: l 20:54: Demerol) Dre 00 Flumazenil No Notes: Memor ia 4-28 (Same as: l 20:54: Romazicon) Dre 00 Naloxone No Notes: Memoria 4-28 Same as l 20:54: Narcan [place] Labetalol No Notes: Memori a 4-28 (Same as: l 20:54: Normodyne, Dre 00 Trandate) Push over 2 minutes Give bolus over 2-3 minutes. Hydromorpho No Notes: Bipin bernardo ne 4-28 Same as: l 20:54: Dilaudid [place] 00 Morphine No Notes: Memoria 4-28 (Same l 20:54: as:MORPhin Dre 00 e Sulfate) Exparel No Notes: Memoria 4-28 (Same as: l 14:00: Exparel) [place] NOT FOR IV use Postoperat yecenia analgesia: [...] 30 mL [266 mg]) Exparel No Notes: [facility]09-20 (Same as: l 14:00: Exparel) NOT FOR [...] 30 mL [266 mg]) Exparel No Notes: [facility]09-20 (Same as: l 14:00: Exparel) NOT FOR [...] mg]) NS 1,000 mL No 1,000 mL, [facility] Rate: 100 l 05:00: ml/hr, Infuse over: 10 hr, Route: IV, Dosing Weight 72.727 kg, Total Volume: 1,000, Start date: 09/20/13 0:00:00, Duration: 30 day, Stop date: 10/19/13 23:59:00 NS 1,000 mL [facility]: 100 l 05:00: ml/hr, Dre 00 Infuse over: 10 hr, Route: IV, Dosing Weight 72.727 kg, Total Volume: 1,000, Start date: 09/20/13 0:00:00, Duration: 30 day, Stop date: 10/19/13 23:59:00 NS 1,000 mL No 1,000 [facility] Rate: 100 l 05:00: ml/hr, Dre 00 Infuse over: 10 hr, Route: IV, Dosing Weight 72.727 kg, Total Volume: 1,000, Start date: 09/20/13 0:00:00, Duration: 30 day, Stop date: 10/19/13 23:59:00 [facility] No 1 tab, Bipin bernardo with Iron 4- Route: l Chewable 14:00: CHEW, Drug Her wallace Form: CHEWTAB, Dosing Weight 72.727, kg, Daily, Start date: 09/18/13 9:00:00, Duration: 30 day, Stop date: 10/17/13 9:00:00 multivitami No Notes: Bipin bernardo n 4-26 Non-Formul l 14:00: [facility] 00 - Give with Food (Same as:Poly-Vi -Greer Chewable) [facility] No [facility] tab, Bipin bernardo with Iron 4-26 Route: l Chewable 14:00: CHEW, Drug Her wallace Form: CHEWTAB, Dosing Weight 72.727, kg, Daily, Start date: 09/18/13 9:00:00, Duration: 30 day, Stop date: 10/17/13 9:00:00 multivitami No Notes: Bipin bernardo n 4-26 Non-Formul l 14:00: [facility] - [place] 00 Give with Food (Same as:Poly-Vi -Greer Chewable) [facility] No 1 tab, Bipin bernardo with Iron 4-26 Route: l Chewable 14:00: CHEW, Drug Her wallace Form: CHE[place]AB, Dosing Weight 72.727, kg, Daily, Start date: 09/18/13 9:00:00, Duration: 30 day, Stop date: 10/17/13 9:00:00 multivitami No Notes: Bipin bernardo n 09-18 Non-Formul l 14:00: [facility] - [place] 00 Give with Food (Same as:Poly-Vi -Greer Chewable) Relistor No Notes: Memoria 09-18 Same as: l 02:00: Relistor [place] 00 Restricted to Palliative Care Relistor No Notes: Memoria 09-18 Same as: l 02:00: Relistor [place] 00 Restricted to Palliative Care Relistor No Notes: Memoria 09-18 Same as: l 02:00: Relistor Dre 00 Restricted to Palliative Care Sodium No 1,000 mL, Memori a Chloride 4-25 Rate: 30 l 0.154 17:19: ml/hr, Dre MEQ/ML 00 Infuse Injectable over: 33.3 Solution hr, Route: IV, Dosing Weight 72.727 kg, Total Volume: 1,000, Start date: 09/17/13 12:19:00, Stop date: 09/20/13 0:00:00 Sodium 2013-0 No 1,000 mL, Memori a Chloride 4-25 Rate: 30 l 0.154 17:19: ml/hr, Dre MEQ/ML 00 Infuse Injectable over: 33.3 Solution hr, Route: IV, Dosing Weight 72.727 kg, Total Volume: 1,000, Start date: 09/17/13 12:19:00, Stop date: 09/20/13 0:00:00 Sodium 2013-0 No 1,000 mL, Memori a Chloride 4-25 Rate: 30 l 0.154 17:19: ml/hr, Dre [...] 4-25 (Same As: l Tablet 16:50: Imitrex) [place] [Imitrex] 00 Sumatriptan No Notes: Bipin bernardo 50 MG Oral 4-25 (Same As: l Tablet 16:50: Imitrex) [place] [Imitrex] 00 Tylenol No Notes: Do Memor ia 4-25 not exceed l 16:49: 4 gm/day. (Same as: Tylenol) Tylenol No Notes: Do Memor ia 4-25 not exceed l 16:49: 4 gm/day. (Same as: Tylenol) Tylenol No Notes: Do Memor ia 4-25 not exceed l 16:49: 4 gm/day. (Same as: Tylenol) Klonopin No Notes: Memoria 4-25 (Same As: l 14:00: KlonoPIN) Klonopin No Notes: Memoria 4-25 (Same As: l 14:00: KlonoPIN) Klonopin No Notes: Memoria 4-25 (Same As: l 14:00: KlonoPIN) Diphenhydra No Notes: Bipin bernardo mine 4-25 (Same as: l 11:00: Benadryl) Diphenhydra No Notes: Bipin bernardo mine 4-25 (Same as: l 11:00: Benadryl) Diphenhydra No Notes: Bipin bernardo mine 4-25 (Same as: l 11:00: Benadryl) Ketorolac No 4 days Memor ia 4-25 l 10:49: [place] 00 Ketorolac No 4 days Memor ia 4-25 l 10:49: [place] 00 Ketorolac No 4 days Memor ia 4-25 l 10:49: Dre 00 Sumatriptan No Notes: Bipin bernardo 50 MG Oral 4-25 (Same As: l Tablet 10:46: Imitrex) [place] [Imitrex] 00 Sumatriptan No Notes: Bipin bernardo 50 MG Oral 4-25 (Same As: l Tablet 10:46: Imitrex) Dre [Imitrex] 00 Sumatriptan No Notes: Bipin bernardo 50 MG Oral 4-25 (Same As: l Tablet 10:46: Imitrex) Dre [Imitrex] 00 Relistor No Notes: Memoria 4-25 Same as: l 02:00: Relistor [place] 00 Restricted to Palliative Care Relistor No Notes: Memoria 4-25 Same as: l 02:00: Relistor Dre 00 Restricted to Palliative Care Relistor No Notes: Memoria 4-25 Same as: l 02:00: Relistor [place] 00 Restricted to Palliative Care Miralax No Notes: Memoria 4-24 Dissolve l 14:00: in 8 oz of Dre 00 water or juice. (Same as: Miralax) Miralax No Notes: Memoria 4-24 Dissolve l 14:00: in 8 oz of Dre 00 water or juice. (Same as: Miralax) Miralax No Notes: Memoria 4-24 Dissolve l 14:00: in 8 oz of Dre 00 water or juice. (Same as: Miralax) Docusate No Notes: Memoria Sodium 100 4-23 (Same as: l MG Oral 22:00: Colace) [place] Capsule 00 (Do Not [Colace] Crush) Docusate No Notes: Memoria Sodium 100 4-23 (Same as: l MG Oral 22:00: Colace) Dre Capsule 00 (Do Not [Colace] Crush) Docusate No Notes: Memoria Sodium 100 4-23 (Same as: l MG Oral 22:00: Colace) Dre Capsule 00 (Do Not [Colace] Crush) Plaquenil No Notes: Memori a 4-23 (Same as: l 17:54: Plaquenil) Dre 00 Plaquenil No Notes: Memori a 4-23 (Same as: l 17:54: Plaquenil) Dre 00 Plaquenil No Notes: Memori a 4-23 (Same as: l 17:54: Plaquenil) [place] Antioxidant No 30 mL, Bipin bernardo Multiple 4-23 Route: PO, l Vitamins 14:00: Dosing [place] and 00 Weight Minerals 72.727, oral liquid kg, Daily, Start date: 09/15/13 9:00:00, Duration: 30 day, Stop date: 10/14/13 9:00:00 Antioxidant No 30 mL, Bipin bernardo Multiple 4-23 Route: PO, l Vitamins 14:00: Dosing Dre and 00 Weight Minerals 72.727, oral liquid kg, Daily, Start date: 09/15/13 9:00:00, Duration: 30 day, Stop date: 10/14/13 9:00:00 Antioxidant No 30 mL, Bipin bernardo Multiple 4-23 Route: PO, l Vitamins 14:00: Dosing [place] and 00 Weight Minerals 72.727, oral liquid kg, Daily, Start date: 09/15/13 9:00:00, Duration: 30 day, Stop date: 10/14/13 9:00:00 Reglan No Notes: Memoria 4-22 (Same as: l 23:00: Reglan) [place] 00 Reglan No Notes: Memoria 4-22 (Same as: l 23:00: Reglan) [place] Reglan No Notes: Memoria 4-22 (Same as: l 23:00: Reglan) Dre Thiamine No Notes: Memoria 4-22 (Same As: l 15:00: Vitamin [place] 00 B1) Thiamine No Notes: Memoria 4-22 (Same As: l 15:00: Vitamin Dre 00 B1) Thiamine No Notes: Memoria 4-22 (Same As: l 15:00: Vitamin [place] 00 B1) multivitami No Notes: Bipin bernardo n 4-22 (Same as: l 14:26: Multi-Valeria [place] 00 n) multivitami No Notes: Bipin bernardo [...] D3 No 2,000 Memori a 2000 intl 22 IntlUnit, l units oral 14:25: 2 tab, Vani nn tablet 00 Route: PO, Drug form: TAB, Daily, Dosing Weight 72.727, kg, Start date: 09/14/13 9:25:00, Duration: 30 day, Stop date: 10/14/13 9:00:00 Ferrlecit No Notes: Memori a -22 (sodium l 14:16: ferric [place] 00 gluconate complex (elemental iron) 62.5 mg/5 [...] 4-22 (Same As: l 04:37: Restoril) Dre Temazepam No Notes: Memori a 4-22 (Same As: l 04:37: Restoril) Dre Temazepam No Notes: Memori a 4-22 (Same As: l 04:37: Restoril) [place] Acetaminoph No Notes: Max Memoria en 4-22 acetaminop l 00:13: hen = Dre 00 [...] Sodium No 1,000 mL, Memori a Chloride 4-22 Rate: 30 l 0.154 00:13: ml/hr, [place] MEQ/ML 00 Infuse Injectable over: 33.3 Solution hr, Route: IV, Dosing Weight 72.727 kg, Total Volume: 1,000, Start date: 09/13/13 19:13:00, Duration: 30 day, Stop date: 10/13/13 19:12:00 Saline No Notes: Memoria Flush 0.9% 4-22 (Same as: l 00:13: BD [place] 00 Posiflush) Acetaminoph No Notes: Max Memoria en 4-22 acetaminop l 00:13: hen = [place] 00 4000mg/day (4 gm/day). (Same as: Tylenol) Morphine No Notes: Memoria 4-22 (Same l 00:13: as:MORPhin Dre 00 e Sulfate) Phenergan No Notes: Do Mem oria 4-22 not give l 00:13: IV push. [place] 00 (Same as: Phenergan) Protonix No Notes: For Mem oria 4-22 IV push l 00:13: reconstitu [place] 00 te with 10 ml 0.9% sodium chloride and push over 2 minutes. (Same as: Protonix) Sodium No 1,000 mL, Memori a Chloride 4-22 Rate: 30 l 0.154 00:13: ml/hr, Dre MEQ/ML 00 Infuse Injectable over: 33.3 Solution hr, Route: IV, Dosing Weight 72.727 kg, Total Volume: 1,000, Start date: 09/13/13 19:13:00, Duration: 30 day, Stop date: 10/13/13 19:12:00 Saline No Notes: Memoria Flush 0.9% 4-22 (Same as: l 00:13: BD [place] 00 Posiflush) Sodium No 1,000 mL, Memori a Chloride 4-22 Rate: 30 l 0.154 00:13: ml/hr, [place] MEQ/ML 00 Infuse Injectable over: 33.3 Solution hr, Route: IV, Dosing Weight 72.727 kg, Total Volume: 1,000, Start date: 09/13/13 19:13:00, Duration: 30 day, Stop date: 10/13/13 19:12:00 Saline No Notes: Memoria Flush 0.9% 4-22 (Same as: l 00:13: BD [place] 00 Posiflush) Acetaminoph No Notes: Max Memoria en 4-22 acetaminop l 00:13: hen = [place] 00 4000mg/day (4 gm/day). (Same as: Tylenol) Morphine No Notes: Memoria 4-22 (Same l 00:13: as:MORPhin Dre 00 e Sulfate) Phenergan No Notes: Do Mem oria 4-22 not give l 00:13: IV push. [place] 00 (Same as: Phenergan) Protonix No Notes: For Mem oria 4-22 IV push l 00:13: reconstitu [place] 00 te with 10 ml 0.9% sodium chloride and push over 2 minutes. (Same as: Protonix) Temazepam 2013- Yes 30 mg = 1 Mem oria 30 MG Oral 4-21 cap, PO, l Capsule 23:48: Bedtime, Uday n [Restoril] 00 Sleep, # 30 cap, 0 Refill(s) Temazepam 2013- Yes 30 mg = 1 Mem oria 30 MG Oral 4-21 cap, PO, l Capsule 23:48: Bedtime, Uday n [Restoril] 00 Sleep, # 30 cap, 0 Refill(s) Temazepam 2013- Yes 30 mg = 1 Mem oria 30 MG Oral 4-21 cap, PO, l Capsule 23:48: Bedtime, Uday n [Restoril] 00 Sleep, # 30 cap, 0 Refill(s) Sucralfate No 1 gm = 1 Mem oria 1000 MG 4-21 tab, PO, l Oral Tablet 23:47: TID, # 120 [place] [Carafate] 00 tab, 0 Refill(s) Sumatriptan Yes 6 mg = 0.5 Memoria 12 MG/ML 4-21 ml, SUB-Q, l Injectable 23:47: ONCE, as Her wallace Solution 00 needed [Imitrex] Headache, # 1, 0 Refill(s) Sucralfate 2013- No 1 gm = 1 Mem oria [...] 00 needed Headache, # 1, 0 Refill(s) Imitrex 6 Yes 6 mg = 0.5 Me moria mg/0.5 mL 4-21 ml, SUB-Q, l subcutaneou 23:47: ONCE, as He rmhernandez s solution 00 needed Headache, # 1, 0 Refill(s) Sucralfate No 1 gm = 1 Mem oria 1000 MG 4-21 tab, PO, l Oral Tablet 23:47: TID, # 120 [place] [Carafate] 00 tab, 0 Refill(s) Sumatriptan Yes [...] tab, PO, l Tablet 23:46: BID, as [place] [Amerge] 00 needed for headache, 0 Refill(s) [...] (Same as: l 19:30: Reglan) Dre 00 Reglan No Notes: Memoria 4-21 (Same as: l 19:30: Reglan) [place] 00 Reglan No Notes: Memoria 4-21 (Same as: l 19:30: Reglan) Dre Protonix No Notes: For Mem oria 4-21 IV push l 19:19: reconstitu [place] 00 te with 10 ml 0.9% sodium [...] 15:18:00 Protonix No Notes: For Mem oria 4- IV push l 19:19: reconstitu Dre 00 [...] Nico 5 mL, l 18:16: Route: IV, [place] 00 Drug form: SOLN, ONCE, Start date: 12/10/11 13:16:00, Stop date: 12/10/11 13:16:00 heparin Yes Garth P 500 unit, Me moria 7-17 Nico 5 mL, l 18:16: Route: IV, Dre 00 Drug form: SOLN, ONCE, Start date: 12/10/11 13:16:00, Stop date: 12/10/11 13:16:00 heparin Yes Garth P 500 unit, Me moria 7-17 Nico 5 mL, l 18:16: Route: IV, Dre 00 Drug form: SOLN, ONCE, Start date: 12/10/11 13:16:00, Stop date: 12/10/11 13:16:00 Lortab 500 Yes Jose 15 ml, PO, Memoria mg-7.5 7-17 Nico Q4H, PRN, l mg/15 mL 17:22: 200 mL, Uday n oral elixir 59 for pain, Substituti on Allowed, Soft Stop, ELIX Lortab 500 Yes Jose 15 ml, PO, [...] Nico tab, PO, l tablet 17:22: Bedtime, [place] 19 200 tab, Substituti on Allowed, TAB [...] 30 day, Stop date: 01/05/12 17:34:00 Tylenol 0 No Garth P 650 mg, 2 Me [...] 2,000 mg, Me moria gluconate + 7-13 Ncio 20 mL, l Sodium 18:40: Route: IV, [...] Nico mL, Route: l 18:40: IV, Drug [place] 00 form: PDR/INJ, ONCE, Start date: 12/06/11 [...] Nico mL, Route: l 18:40: IV, Drug [place] 00 form: PDR/INJ, ONCE, Start date: 12/06/11 13:40:00, Stop date: 12/06/11 13:40:00 Benadryl 2011-0 No Garth P 25 mg, 0.5 Memoria 7-13 Nico mL, Route: l 18:39: IV, Drug [place] 00 form: INJ, ONCE, Start date: 12/06/11 13:39:00, Stop date: 12/06/11 13:39:00 Benadryl 2012-0 No Garth P 25 mg, 0.5 Memoria 7-13 Ncio mL, Route: l 18:39: IV, Drug [place] 00 form: INJ, ONCE, Start date: 12/06/11 13:39:00, Stop date: 12/06/11 13:39:00 Benadryl 2012-0 No Garth P 25 mg, 0.5 Memoria 7-13 Nico mL, Route: l 18:39: IV, Drug [place] 00 form: INJ, ONCE, Start date: 12/06/11 13:39:00, Stop date: 12/06/11 13:39:00 Sodium 2011-0 No Garth P 2,000 mL, Mem oria Chloride 7-13 Nico Rate: x 1 l 0.9% IV 18:33: bolus, [place] 2,000 mL 00 Route: IV, Dosing Weight [...] or times, Stop date: 12/06/11 15:32:00 Sodium 2012-0 No Garth P 2,000 mL, Mem oria Chloride 7-13 Nico Rate: x 1 l 0.9% IV 18:33: bolus, [place] 2,000 mL 00 Route: IV, Dosing Weight 74.545 kg, Total Volume: 2,000, Start date: 12/06/11 13:33:00, Duration: 1 doses or times, Stop date: 12/06/11 15:32:00 ketorolac 2012-0 No Garth P 30 mg, 1 M [...] Nico mL, Route: l 00:00: IVP, Drug [place] form: INJ, Q6H, Start date: 12/05/11 19:00:00, Duration: 30 day, Stop date: 01/04/12 18:00:00 Reglan 2011-0 No Garth P 10 mg, 2 Bipin bernardo 7-13 Nico mL, Route: l 00:00: IVP, Drug [place] 00 form: INJ, Q6H, Start date: 12/05/11 19:00:00, Duration: 30 day, Stop date: 01/04/12 18:00:00 Reglan 2011-0 No Garth P 10 mg, [...] flumazenil No Gaston 0.2 mg, Memoria 7-12 Korean Route: l 21:50: IVP, PRN, PRN Benzodiaze pine Reversal, Initial dose, Start date: 12/05/11 16:50:00, Duration: 30 day, Stop date: 01/04/12 16:49:00 naloxone No Michael S 0.04 mg, M emoria 12-04 Minkowitz 0.1 mL, l 21:50: Route: Dre 00 IVP, Drug form: INJ, Q2MIN, PRN Narcotic Reversal, Start date: 12/05/11 16:50:00, Duration: 8 doses or times, Stop date: Limited # of times acetaminoph No Michael S 1,000 mg, Memoria en 10 mg/mL 12-04 Minkowitz 100 mL, l intravenous 21:50: Route: [...] Michael S 4 mg, 1 Memoria ne 12-04 Minkowitz mL, Route: l 21:50: IVP, Drug form: INJ, ONCE, PRN Nausea & Vomiting, Start date: 12/05/11 16:50:00 promethazin No Michael S 6.25 mg, Memoria e + Sodium 12-04 Minkowitz 0.25 mL, l Chloride 21:50: Route: Dre 0.9% IV 50 00 IVPB, mL ONCE, PRN Nausea & Vomiting, Start date: 12/05/11 16:50:00 midazolam No Michael S 2 mg, 2 M emoria 12-04 Minkowitz mL, Route: l 21:50: IVP, Drug [...] flumazenil No Gaston 0.2 mg, Memoria 7-12 Korean Route: l 21:50: IVP, PRN, PRN Benzodiaze [...] Minkowitz 0.25 mL, l Chloride 21:50: Route: [place] 0.9% IV 50 00 IVPB, mL ONCE, [...] Minkowitz 0.25 mL, l 21:50: Route: Dre IVP, Drug form: INJ, Q30Min, PRN Other [...] flumazenil No Gaston 0.2 mg, Memoria 7-12 Korean Route: l 21:50: IVP, PRN, PRN Benzodiaze [...] 7-12 Minkowitz 0.25 mL, l 20:04: Route: [place] 00 IVP, Drug form: INJ, Q5Min, PRN Pain Score 4-6, Start date: 12/05/11 15:04:00, Duration: 5 doses or times, Stop date: Limited # of times morphine No Michael S 2 mg, 1 Me moria Sulfate 7-12 Minkowitz mL, Route: l 20:04: IVP, Drug [place] 00 form: INJ, Q5Min, PRN Pain Score 4-6, Start date: 12/05/11 15:04:00, Duration: 8 doses or times, Stop date: Limited # of times naloxone No Michael S 0.04 mg, M emoria 7-12 Minkowitz 0.1 mL, l 20:04: Route: [place] IVP, Drug form: INJ, Q2MIN, PRN Narcotic [...] Stop date: Limited # of times morphine 0 No Michael S 2 mg, 1 Me moria Sulfate 7-12 Minkowitz mL, Route: l 20:04: IVP, Drug [place] 00 form: INJ, Q5Min, PRN Pain Score 4-6, Start date: 12/05/11 15:04:00, Duration: 8 doses or times, Stop date: Limited # of times naloxone 0 No Michael S 0.04 mg, M emoria [...] day, Stop date: 01/04/12 15:03:00 Fleet Enema 0 No Garth P 133 mL, Memoria 12-04 Nico Route: SD, l 14:00: Drug Form: [place] 00 TYSON, ONCE, Start date: 12/05/11 9:00:00, Stop date: 12/05/11 9:00:00 Fleet Enema 0 No Garth P 133 mL, Memoria 12-04 Nico Route: SD, l 14:00: Drug Form: Dre 00 TYSON, ONCE, Start date: 12/05/11 9:00:00, Stop date: 12/05/11 9:00:00 Fleet Enema 0 No Garth P 133 mL, Memoria 12-04 Nico Route: SD, l 14:00: Drug Form: [place] 00 TYSON, ONCE, Start date: 12/05/11 9:00:00, Stop date: 12/05/11 9:00:00 Fleet Enema No Garth P 133 mL, Memoria 12-03 Nico Route: SD, l 19:00: Drug Form: Dre 00 TYSON, ONCE, Start date: 12/04/11 14:00:00, Stop date: 12/04/11 14:00:00 Citrate of No Garth P 300 mL, Jason Bass 12-03 Nico Route: PO, l 19:00: Drug Form: Dre 00 LIQ, ONCE, Start date: 12/04/11 14:00:00, Stop date: 12/04/11 14:00:00 Fleet Enema No Garth P 133 mL, Memoria 12-03 Nico Route: SD, l 19:00: Drug Form: Dre 00 TYSON, ONCE, Start date: 12/04/11 14:00:00, Stop date: 12/04/11 14:00:00 Citrate of No Garth P 300 mL, Jason Bass 12-03 Nico Route: PO, l 19:00: Drug Form: Dre 00 LIQ, ONCE, Start date: 12/04/11 14:00:00, Stop date: 12/04/11 14:00:00 Fleet Enema 0 No Garth P 133 mL, Memoria 7-11 Nico Route: SD, l 19:00: Drug Form: Dre 00 TYSON, ONCE, Start date: 12/04/11 14:00:00, Stop date: 12/04/11 14:00:00 Citrate of 0 No Garth P 300 mL, Jason Bass 7-11 Nico Route: PO, l 19:00: Drug Form: Dre LIQ, ONCE, Start date: 12/04/11 14:00:00, Stop date: 12/04/11 14:00:00 Ambien 2011-0 No Garth P 10 mg, 1 Bipin bernardo 7-11 Nico tab, l 02:00: Route: PO, [place] 00 Drug form: TAB, Bedtime, Start date: 12/03/11 21:00:00, Duration: 30 day, Stop date: 01/01/12 21:00:00 Ambien 0 No Garth P 10 mg, 1 Bipin bernardo 7-11 Nico tab, l 02:00: Route: PO, Dre 00 Drug form: TAB, Bedtime, Start date: 12/03/11 21:00:00, Duration: 30 day, Stop date: 01/01/12 21:00:00 Ambien 0 No Garth P 10 mg, [...] Nico mL, Route: l 23:37: IVP, Drug [place] 00 form: INJ, Q6H, PRN Itching, Start date: 12/03/11 18:37:00, Duration: 30 day, Stop date: 01/02/12 18:36:00 Protonix + 2011-0 No Garth P 40 mg, Me moria Sodium 7-10 Nico Route: l Chloride 21:30: IVP, [place] 0.9% IV 10 00 Before mL Dinner, Start date: 12/03/11 16:30:00, Duration: 30 day, Stop date: 01/01/12 16:30:00 Protonix + 2011-0 No Garth P 40 mg, Me moria Sodium 7-10 Nico Route: l Chloride 21:30: IVP, [place] 0.9% IV 10 00 Before mL Dinner, [...] 30 day, Stop date: 01/02/12 5:00:00 Floranex 2011-0 No Garth P 1 tab, Bipin bernardo 7-10 Nico Route: PO, l 18:00: Drug Form: Dre 00 TAB, Q8H, Start date: 12/03/11 13:00:00, Duration: 30 day, Stop date: 01/02/12 5:00:00 Floranex 2011-0 No Garth P 1 tab, Bipin bernardo 7-10 Nico Route: PO, l 18:00: Drug Form: [place] 00 TAB, Q8H, Start date: 12/03/11 13:00:00, Duration: 30 day, Stop date: 01/02/12 5:00:00 hyoscyamine 2012-0 Yes 0.125 mg, M emoria 0.125 mg 7-10 1 tab, PO, l oral tablet 17:53: TID, PRN, H ermann 40 tab, as needed for spasm, Substituti on Allowed, TAB hyoscyamine 2012-0 Yes 0.125 mg, M emoria 0.125 mg 7-10 1 tab, PO, l oral tablet 17:53: TID, PRN, H ermann 40 tab, as needed for spasm, Substituti on Allowed, TAB hyoscyamine 2012-0 Yes 0.125 mg, M emoria 0.125 mg 7-10 1 tab, PO, l oral tablet 17:53: TID, PRN, H ermann 40 tab, as needed for spasm, Substituti on Allowed, TAB levothyroxi 2011-0 Yes 150 Memori a ne 150 mcg 7-10 microgram, l (0.15 mg) 17:52: 1 tab, PO, He rmann oral tablet 41 Daily, 30 tab, Substituti on Allowed, IN AM, TABIN AM levothyroxi 2011-0 Yes 150 Memori a ne 150 mcg 7-10 microgram, l (0.15 mg) 17:52: 1 tab, PO, He rmann oral tablet 41 Daily, 30 tab, Substituti on Allowed, IN AM, TABIN AM levothyroxi 2011-0 Yes 150 Memori a ne 150 mcg 7-10 microgram, l (0.15 mg) 17:52: 1 tab, PO, He rmann oral tablet 41 Daily, 30 tab, Substituti on Allowed, IN AM, TABIN AM divalproex 2012-0 Yes 750 mg, Bipin bernardo [...] Bipin bernardo 7-10 Bedtime, l 17:51: Substituti [place] 02 on Allowed, TAB Zanaflex 2012-0 Yes 8 mg, PO, Bipin bernardo 7-10 Bedtime, l 17:51: Substituti Dre 02 on Allowed, TAB Zanaflex 2012-0 Yes 8 mg, PO, Bipin bernardo 7-10 Bedtime, l 17:51: Substituti [place] 02 on Allowed, TAB Zanaflex 2 2012-0 [...] 58 cap, Substituti on Allowed, CAP Phenergan 2011- Yes 50 mg, PO, Me moria 7-10 Q6H, l 17:50: Substituti Dre 39 on Allowed, TAB Phenergan 2011- Yes 50 mg, PO, Me moria 7-10 Q6H, l 17:50: Substituti Dre 39 on Allowed, TAB Phenergan 2011-0 Yes 50 mg, PO, Me moria 7-10 Q6H, l 17:50: Substituti [place] 39 on Allowed, TAB fentanyl 75 Yes 1 patch, Me moria mcg/hr 7-10 TOP, Q72H, l transdermal 17:50: Substituti [place] film, 06 on extended Allowed, release Soft [...] 7-10 Nico 0.5 mL, l 17:49: Route: IVP, Drug form: INJ, Q5Min, PRN Narcotic Reversal, Start date: 12/03/11 12:49:00, Duration: 30 day, Stop date: 01/02/12 12:48:00 naloxone No Garth P 0.2 mg, Mem oria 7-10 Nico 0.5 mL, l 17:49: Route: IVP, Drug form: INJ, Q5Min, PRN Narcotic Reversal, Start date: 12/03/11 12:49:00, Duration: 30 day, Stop date: 01/02/12 12:48:00 naloxone No Garth P 0.2 mg, Mem oria 7-10 Nico 0.5 mL, l 17:49: Route: [place] IVP, Drug form: INJ, Q5Min, PRN Narcotic Reversal, Start date: 12/03/11 12:49:00, Duration: 30 day, Stop date: 01/02/12 12:48:00 .V.I. No Garth P 102.24 Memori a Adult [...] Duration: 30 day, Stop date: 01/02/12 9:00:00 .V.I. No Garth P 102.24 Memori a Adult 10 mL 7-10 Nico ml/hr, l + folic 16:57: Route: IV, Herm hernandez acid 1 mg + 00 Drug Form: Vitamin B1 INJ, 100 mg + Daily, Sodium Start Chloride date: 0.9% IV 500 12/03/11 mL 11:57:00, Duration: 30 day, Stop date: 01/02/12 9:00:00 Vitamin D3 0 No Garth P 5,000 Mem oria 7-10 Nico IntlUnit, l 16:55: 5 tab, Route: PO, Drug form: TAB, Daily, Start date: 12/03/11 11:55:00, Duration: 30 day, Stop date: 01/02/12 9:00:00 Vitamin D3 0 No Garth P 5,000 Mem oria 7-10 Nico IntlUnit, l 16:55: 5 tab, Dre 00 Route: PO, Drug form: TAB, Daily, Start date: 12/03/11 11:55:00, Duration: 30 day, Stop date: 01/02/12 9:00:00 Vitamin D3 2011-0 No Garth P 5,000 Mem oria 7-10 Nico IntlUnit, l 16:55: 5 tab, [place] 00 Route: PO, Drug form: TAB, Daily, [...] Nico mL, Route: l 16:54: IV, Drug [place] Form: INJ, Start date: 12/03/11 11:54:00, Stop date: 01/02/12 11:53:00 hydromorpho 2011-0 No Garth P 6 mg, 30 Memoria ne 6 mg 7-10 Nico mL, Route: l 16:54: IV, Drug [place] Form: INJ, Start date: 12/03/11 11:54:00, Stop [...] Nico 0.5 mL, l Chloride 16:53: Route: [place] 0.9% IV 50 00 IVPB, Q6H, mL [...] Nico 0.5 mL, l Chloride 16:53: Route: [place] 0.9% IV 50 00 IVPB, Q6H, mL [...] Route: IV, l 0.9% IV 16:52: Start [place] 00 date: 12/03/11 11:52:00, Duration: 30 day, [...] 30 day, Stop date: 01/02/12 11:51:00 Sodium 2012-0 No Garth P 25 mL, Memori a Chloride 7-10 Nico Route: IV, l 0.9% IV 16:52: Start Dre date: 12/03/11 11:52:00, Duration: 30 day, Stop date: 01/02/12 11:51:00, PRN Line Flush BD Normal 2011-0 No Garth P 10 mL, Mem oria Saline 7-10 Nico Route: IV, l Flush 16:52: Drug Form: Uady n 00 INJ, PRN, PRN Line Flush, Start date: 12/03/11 11:52:00, Duration: 30 day, Stop date: 01/02/12 11:51:00 D5W 1/2NS + 2012-0 No Garth P 1,000 mL, Memoria KCL 20mEq/L 7-10 Nico Rate: 120 l 1000ml 16:52: ml/hr, [place] ([facility]) 00 Infuse 1,000 mL over: 8.3 [...] Diastolic (mm Hg) 2021-06-06 15:33:00 [facility] [place] Heart Rate 2021-06-06 15:33:00 [facility] Respitory Rate 2021-06-06 15:33:00 [facility] [place] Height 2021-06-06 15:33:00 170.18 cm [facility] [place] Weight 2021-06-06 15:33:00 [facility] BMI Calculated 2021-06-06 15:33:00 [facility] [place] Temperature Oral (F) 2013-09-24 17:18:00 98.2 F [facility] [place] Heart Rate 2013-09-24 17:18:00 [facility] Respitory Rate 2013-09-24 17:18:00 [facility] Systolic (mm Hg) 2013-09-24 17:18:00 Bipin rial Dre Diastolic (mm Hg) 2013-09-24 17:18:00 [facility] [place] Diastolic (mm Hg) 2013-09-24 12:20:00 [facility] [place] Systolic (mm Hg) 2013-09-24 12:20:00 Bipin rial [place] Respitory Rate 2013-09-24 12:20:00 [facility] [place] Heart Rate 2013-09-24 12:20:00 [facility] [place] Temperature Oral (F) 2013-09-24 12:20:00 98.6 F [facility] Heart Rate 2013-09-24 09:00:00 [facility] Systolic (mm Hg) 2013-09-24 09:00:00 Bipin rial [facility] Diastolic (mm Hg) 2013-09-24 09:00:00 [facility] [place] Respitory Rate 2013-09-24 09:00:00 [facility] Temperature Oral (F) 2013-09-24 09:00:00 98.1 F [facility] Height 2013-09-13 19:05:00 175.26 cm [facility] [place] Weight 2013-09-13 19:05:00 [facility] [place] BMI Calculated 2013-09-13 19:05:00 [facility] [place] Heart Rate 2011-12-10 17:00:00 [facility] Temperature Oral (F) 2011-12-10 17:00:00 98.4 F [facility] Diastolic (mm Hg) 2011-12-10 17:00:00 [facility] Systolic (mm Hg) 2011-12-10 17:00:00 Bipin rial [facility] Respitory Rate 2011-12-10 17:00:00 [facility] Heart Rate 2011-12-10 13:00:00 [facility] Temperature Oral (F) 2011-12-10 13:00:00 97.9 F [facility] Systolic (mm Hg) 2011-12-10 13:00:00 Bipin rial [place] Respitory Rate 2011-12-10 13:00:00 [facility] Diastolic (mm Hg) 2011-12-10 13:00:00 [facility] [place] Systolic (mm Hg) 2011-12-10 10:10:00 Bipin rial [place] Diastolic (mm Hg) 2011-12-10 10:10:00 [facility] Heart Rate 2011-12-10 10:10:00 [facility] Respitory Rate 2011-12-10 10:10:00 [facility] [place] Temperature Oral (F) 2011-12-10 10:10:00 98.0 F [facility] Height 2011-12-03 16:29:00 172.72 cm [facility] Weight 2011-12-03 16:29:00 [facility] Procedures Procedure Date / Time Performed Performing Clinician Skyler hughes Colon [facility] operation<sup>3</sup> Bariatric operative [facility] procedure<sup>2</sup> Partial hysterectomy [facility] Appendectomy [facility] Plan of Care Planned Activity Planned Date Details Comments Source Future Scheduled 2023-03-19 [facility] Test 19:37:02 malignant neoplasm of colon (procedure) [code = [id number]] Future Scheduled 2023-03-19 Screening for [facility] Test 19:37:02 malignant neoplasm of colon (procedure) [code = 241711878] Future Scheduled 2023-03-19 Screening for [facility] Test 19:37:02 malignant neoplasm of colon (procedure) [code = 575632414] Future Scheduled 2023-03-19 COVID-19 VACCINE (#1) [facility] Test 19:37:02 [code = COVID-19 VACCINE (#1)] Future Scheduled 2023-03-19 Hepatitis C screening [facility] Test 19:37:02 (procedure) [code = 614359158] Future Scheduled 2023-03-19 Screening for [facility] Test 19:37:02 malignant neoplasm of cervix (procedure) [code = 689293646] Future Scheduled 2023-03-19 BREAST CANCER [facility] Test 19:37:02 SCREENING [code = BREAST CANCER SCREENING] Future Scheduled 2023-03-19 Screening for [facility] Test 19:37:02 malignant neoplasm of colon (procedure) [code = 064126371] Future Scheduled 2023-03-19 Screening for [facility] Test 19:37:02 malignant neoplasm of colon (procedure) [code = 762804258] Future Scheduled 2023-03-19 SHINGLES VACCINES (1 [facility] 19:37:02 of 2) [code = SHINGLES VACCINES (1 of 2)] Future Scheduled 2023-03-19 [facility]ACCINE [facility]:37:02 (#1) [code = INFLUENZA VACCINE (#1)] Future Scheduled 2022-08-29 COVID-19 VACCINE (#1) [facility] Test 05:01:03 [code = COVID-19 VACCINE (#1)] Future Scheduled 2022-08-29 Hepatitis C screening [facility] Test 05:01:03 (procedure) [code = 438045374] Future Scheduled 2022-08-29 Screening for [facility] Test 05:01:03 malignant neoplasm of cervix (procedure) [code = 786243714] Future Scheduled 2022-08-29 BREAST CANCER [facility] Test 05:01:03 SCREENING [code = BREAST CANCER SCREENING] Future Scheduled 2022-08-29 COLONOSCOPY SCREENING [facility] Test 05:01:03 [code = COLONOSCOPY SCREENING] Future Scheduled 2022-08-29 SHINGLES VACCINES (1 Met [facility] Test 05:01:03 of 2) [code = SHINGLES VACCINES (1 of 2)] Future Scheduled 2022-08-29 [facility]ACCINE [facility] 05:01:03 [code = INFLUENZA VACCINE] Future Scheduled 2022-01-16 HEPATITIS B VACCINES [facility] Test 22:14:06 (1 of 3 - 3-dose series) [code = HEPATITIS B VACCINES (1 of 3 - 3-dose series)] Future Scheduled 2022-01-16 COVID-19 VACCINE (#1) [facility] Test 22:14:06 [code = COVID-19 VACCINE (#1)] Future Scheduled 2022-01-16 Hepatitis C screening [facility] Test 22:14:06 (procedure) [code = 052495250] Future Scheduled 2022-01-16 Screening for [facility] Test 22:14:06 malignant neoplasm of cervix (procedure) [code = 720947335] Future Scheduled 2022-01-16 BREAST CANCER [facility] Test 22:14:06 SCREENING [code = BREAST CANCER SCREENING] Future Scheduled 2022-01-16 COLONOSCOPY SCREENING [facility] Test 22:14:06 [code = COLONOSCOPY SCREENING] Future Scheduled 2022-01-16 SHINGLES VACCINES (1 [facility] Test 22:14:06 of 2) [code = SHINGLES VACCINES (1 of 2)] Future Scheduled 2022-01-16 [facility] VACCINE [facility] 22:14:06 [code = INFLUENZA VACCINE] Encounters Start End Encounter Admission Attending Care Care Encounter Source Date/Time Date/Time Type Type Clinicians Facility Department ID 2019-10-28 Inpatient [facility] [id number] S t. 15:30:00 [facility] 2022-07-04 2022-07-04 Ambulatory MHIE MNA [id number] [facility] 16:15:00 16:15:00 Pre-Reg Neurology 03 l Venu Erickson 2022-07-04 2022-07-04 Ambulatory [facility] MNA [id number] [facility] 16:15:00 16:15:00 Pre-Reg Neurology 03 carlene Erickson 2022-07-04 2022-07-04 Outpatient MHIE MHIE [id number] [place] 10:15:00 10:15:00 03 carlene Erickson 2022-07-04 2022-07-04 Outpatient [place] Kruger MISCHER [id number] 10:15:00 10:15:00 Robert Ramone Smiley 2021-08-30 2021-08-31 Between nullFlavo MNA [id number] [facility] 14:51:16 14:51:16 Visit r Neurology 04 carlene Erickson 2021-08-30 2021-08-31 Between nullFlavo MNA [id number] [facility] 14:51:16 14:51:16 Visit r Neurology 04 carlene Erickson 2021-08-30 2021-08-31 Outpatient MHMISCHER MHMISCHER [id number] 09:51:16 09:51:16 04 2021-07-18 2021-07-18 Ambulatory nullFlavo MNA [id number] [facility] 19:15:00 19:15:00 Pre-Reg r Neurology 02 carlene Erickson 2021-07-18 2021-07-18 Ambulatory nullFlavo MNA [id number] Memoria 19:15:00 19:15:00 Pre-Reg r Neurology 02 carlene Erickson 2021-07-18 2021-07-18 Outpatient MHIE MHIE [id number] [place] 13:15:00 13:15:00 Neeraj Erickson 2021-07-18 2021-07-18 Outpatient [place] KrugerSCHJOSE [id number] 13:15:00 13:15:00 Robert Neeraj Smiley 2021-06-06 2021-06-07 Outpatient nullFlavo MNA [id number] [facility] 15:30:00 05:59:59 r Neurology 01 l Venu Erickson 2021-06-06 2021-06-07 Outpatient nullFlavo MNA [id number] Mem[facility] 15:30:00 05:59:59 r Neurology 01 l Venu Erickson 2021-06-06 2021-06-06 Outpatient JUNAID KrugerMESCHER MISCHER [id number] 09:30:00 23:59:59 Robert Baljit 2021-06-06 2021-06-06 Outpatient MHIE MHIE [id number] [facility] 09:30:00 09:30:00 01 l Dre 2021-04-12 2021-04-12 Ambulatory nullFlavo MNA [id number] [facility] 22:00:00 22:00:00 Pre-Reg r Neurology 00 l Venu Erickson 2021-04-12 2021-04-12 Ambulatory nullFlavo MNA [id number] [facility] 22:00:00 22:00:00 Pre-Reg r Neurology 00 l Venu Erickson 2021-04-12 2021-04-12 Outpatient MHIE MHIE [id number] [facility] 16:00:00 16:00:00 00 l Dre 2021-04-12 2021-04-12 Outpatient Saskia RUSTSCHER MISCHER [id number] 16:00:00 16:00:00 Robert 00 Baljit 2020-05-02 2020-05-02 Outpatient [facility] [id number] [address] [place] 00:00:00 00:00:00 JAVAD 736 Method i 2020-03-21 2020-03-21 Outpatient [facility] [id number] 315 [place] 00:00:00 00:00:[address] JAVAD [address] 2019-12-03 2019-12-03 Outpatient [facility] [id number] 654 [place] 00:00:00 00:00:00 JAVAD [address] 2019-11-05 2019-11-05 Outpatient 3 [facility] [id number] 05:50:00 05:50:00 [id number] [facility] 2019-10-12 2019-10-12 Outpatient [facility] [id number] 028 [place] 00:00:00 00:00:00 JAVAD [address] 2019-09-24 2019-09-24 Outpatient [facility] [id number] 986 [place] 00:00:00 00:00:00 JAVAD 950 Method i 2013-09-13 2013-09-24 Inpatient [facility] [id number] [facility] 18:43:00 19:55:00 r [place] 02 [facility] 2013-09-13 2013-09-24 Inpatient [facility] [id number] [facility] 18:43:00 19:55:00 r [place] 02 [facility] 2013-09-13 2013-09-24 Outpatient Nico, [id number] 13:43:00 14:55:00 Austinjudah Andreia [id number] 7965-07-10 2011-12-10 Inpatient [facility] 39 [id number] [facility] 10:48:00 14:30:[address] 2011-12-03 2011-12-10 Inpatient [facility] 39 [id number] [facility] 10:48:00 14:30:[address] Results Test Description Test Time Test Results Result Source Comments Comments XR Chest 1 View 2019-10-25 Patient: IVAN MENESES MRN: Frontal 2 [id number] 14:41:04 Date/Time11/05/2019 10:25 CDTReason for ExamLine placementReportLOCATION: [id number] VIEWINDICATION: Line placementCOMPARISON: None availableFINDINGS: Right [...] IVAN MENESES MRN: in Imaging per 2 [id number] Hour 10:29:38 Date/Time11/05/2019 09:10 CDTReason for ExamsurgeryReportLocation [...] (test code = Magnesium Lvl) 1.5 1.8-2.4 [facility] [id number] 09:50:00 Test Item Value Reference Range Interpretation Comments eGFR (test code = eGFR) [facility] [id number] 09:50:00 Test Item Value Reference Range Interpretation Comments Chloride Lvl (test code = Chloride Lvl) 104 95-109 [facility] [id number] 09:50:00 Test Item Value Reference Range Interpretation Comments Potassium Lvl (test code = Potassium 4.2 3.5-5.1 Lvl) [facility] [id number] 09:50:00 Test Item Value Reference Range Interpretation Comments Calcium Lvl (test code = Calcium Lvl) 7.9 8.5-10.5 [facility] [id number] 09:50:00 Test Item Value Reference Range Interpretation Comments CO2 (test code = CO2) 27 24-32 [facility] [id number] 09:50:00 Test Item Value Reference Range Interpretation Comments Creatinine Lvl (test code = Creatinine 0.7 0.5-1.4 Lvl) [facility]2014-05-01 09:50:00 Test Item Value Reference Range Interpretation Comments BUN (test code = BUN) 6 7-22 [facility]2014-05-01 09:50:00 Test Item Value Reference Range Interpretation Comments Glucose Lvl (test code = Glucose Lvl) 71 70-99 [facility]2014-05-01 09:50:00 Test Item Value Reference Range Interpretation Comments Sodium Lvl (test code = Sodium Lvl) 139 135-145 [facility]2014-05-01 09:50:00 Test Item Value Reference Range Interpretation Comments AGAP (test code = AGAP) 12.2 10.0-20.0 [facility]PC[facility]XUONXO1687-36-87 09:50:00 Test Item Value Reference Range Interpretation Comments Segs (test code = Segs) 60.8 45.0-75.0 [facility] HospitalQjolzslKOAEZQTSLN3603-97-24 09:50:00 Test Item Value Reference Range Interpretation Comments Segs-Bands # (test code = Segs-Bands #) 2.6 1.5-8.1 [facility] HospitalNhlcqlbSZBCLWNKUO6782-22-42 09:50:00 Test Item Value Reference Range Interpretation Comments Basophils (test code = Basophils) 0.5 <=1.0 [facility] HospitalRzttjqqMBZMCBSPVB7347-88-31 09:50:00 Test Item Value Reference Range Interpretation Comments Eosinophils (test code = Eosinophils) 3.6 <=4.0 [facility] HospitalZfftmkeRBLGEULIER3790-78-30 09:50:00 Test Item Value Reference Range Interpretation Comments Monocytes (test code = Monocytes) 13.4 2.0-12.0 [facility] HospitalYhlwqbtCKWJZKCGJL1224-65-22 09:50:00 Test Item Value Reference Range Interpretation Comments Lymphocytes (test code = Lymphocytes) 21.7 20.0-40.0 [facility] HospitalXvypaigTOIZAJZSIZ7566-96-35 09:50:00 Test Item Value Reference Range Interpretation Comments Eosinophils # (test code = Eosinophils 0.2 <=0.5 #) [facility] HospitalOkalgywRXZAGLOHZE3299-26-19 09:50:00 Test Item Value Reference Range Interpretation Comments Monocytes # (test code = Monocytes #) 0.6 <=0.8 [place] [address]-05-01 09:50:00 Test Item Value Reference Range Interpretation Comments Lymphocytes # (test code = Lymphocytes 0.9 1.0-5.5 #) [facility] HospitalXafsgbkGCSKETQTXA2311-94-70 09:50:00 Test Item Value Reference Range Interpretation Comments Hct (test code = Hct) 23.3 36.0-48.0 [facility] HospitalMizwfyhTIXOBYRIKH1768-68-36 09:50:00 Test Item Value Reference Range Interpretation Comments MPV (test code = MPV) 8.0 7.4-10.4 [facility] HospitalBgtwqvcQLVGIHPZEH3481-77-85 09:50:00 Test Item Value Reference Range Interpretation Comments Platelet (test code = Platelet) 177 133-450 [facility] HospitalPuvfrnhKAWOUGYWHA8574-84-20 09:50:00 Test Item Value Reference Range Interpretation Comments RDW (test code = RDW) 16.1 11.5-14.5 [facility] HospitalAoakbseFGQMVIAGMG5405-17-11 09:50:00 Test Item Value Reference Range Interpretation Comments MCHC (test code = MCHC) 35.0 32.0-36.0 [facility] HospitalYxhrcicQUYYRDTRRF7689-18-30 09:50:00 Test Item Value Reference Range Interpretation Comments WBC (test code = WBC) 4.3 3.7-10.4 [facility] HospitalQyghxbeNGAROECWQY9758-75-17 09:50:00 Test Item Value Reference Range Interpretation Comments Hgb (test code = Hgb) 8.2 12.0-16.0 [facility] HospitalFvdnrdfSELYTISRQH7839-83-91 09:50:00 Test Item Value Reference Range Interpretation Comments RBC (test code = RBC) 2.66 4.20-5.40 [facility] HospitalJamsxtePQPMMHXVQS5192-31-99 09:50:00 Test Item Value Reference Range Interpretation Comments MCH (test code = MCH) 30.6 pg 27.0-31.0 [facility] HospitalUtemkdwVMYNZMTWDB4473-65-48 09:50:00 Test Item Value Reference Range Interpretation Comments MCV (test code = MCV) 87.5 81.0-99.0 [facility]2014-05-01 09:50:00 Test Item Value Reference Range Interpretation Comments Magnesium Lvl (test code = Magnesium 1.5 1.8-2.4 Lvl) [facility]2014-05-01 09:50:00 Test Item Value Reference Range Interpretation Comments eGFR (test code = eGFR) 104 [facility]2014-05-01 09:50:00 Test Item Value Reference Range Interpretation Comments Chloride Lvl (test code = Chloride Lvl) 104 95-109 [place] 158624-05-01 09:50:00 Test Item Value Reference Range Interpretation Comments Potassium Lvl (test code = Potassium 4.2 3.5-5.1 Lvl) [place] 158624-05-01 09:50:00 Test Item Value Reference Range Interpretation Comments Calcium Lvl (test code = Calcium Lvl) 7.9 8.5-10.5 [facility]2014-05-01 09:50:00 Test Item Value Reference Range Interpretation Comments CO2 (test code = CO2) 27 24-32 [place] 158624-05-01 09:50:00 Test Item Value Reference Range Interpretation Comments Creatinine Lvl (test code = Creatinine 0.7 0.5-1.4 Lvl) [facility]2014-05-01 09:50:00 Test Item Value Reference Range Interpretation Comments BUN (test code = BUN) 6 7-22 [place] 158624-05-01 09:50:00 Test Item Value Reference Range Interpretation Comments Glucose Lvl (test code = Glucose Lvl) 71 70-99 [facility]2014-05-01 09:50:00 Test Item Value Reference Range Interpretation Comments Sodium Lvl (test code = Sodium Lvl) 139 135-145 [place] 158624-05-01 09:50:00 Test Item Value Reference Range Interpretation Comments AGAP (test code = AGAP) 12.2 10.0-20.0 [facility] HospitalJhvcaniGDWPTXJPNN3719-23-85 09:50:00 Test Item Value Reference Range Interpretation Comments Segs (test code = Segs) 60.8 45.0-75.0 [facility] HospitalGupapgyQWBSMDPQJU2033-15-90 09:50:00 Test Item Value Reference Range Interpretation Comments Segs-Bands # (test code = Segs-Bands #) 2.6 1.5-8.1 [facility] HospitalVspsemkTFXEQIZHZA9370-45-93 09:50:00 Test Item Value Reference Range Interpretation Comments Basophils (test code = 0.5 See_Comment [Aut omated message] The Basophils) system which ge nerated this result tra nsmitted reference range : <=1.0. The reference r javier was not used to int erpret this result as normal/abnormal . [facility] HospitalPfmrtuuDVPUSLSNTQ4965-92-64 09:50:00 Test Item Value Reference Range Interpretation Comments Eosinophils (test code = 3.6 See_Comment [A utomated message] The Eosinophils) system which ge nerated this result tra nsmitted reference range : <=4.0. The reference r javier was not used to int erpret this result as normal/abnormal . [facility] HospitalRbapsuyRQPJSABHKK4963-55-19 09:50:00 Test Item Value Reference Range Interpretation Comments Monocytes (test code = Monocytes) 13.4 2.0-12.0 [facility] HospitalTxvlpjhFDGLSTBCOC4055-85-97 09:50:00 Test Item Value Reference Range Interpretation Comments Lymphocytes (test code = Lymphocytes) 21.7 20.0-40.0 [facility] HospitalGfywzleWJYABOYUKF4878-78-41 09:50:00 Test Item Value Reference Range Interpretation Comments Eosinophils # (test code 0.2 See_Comment [A utomated message] The = Eosinophils #) system whic h generated this result tra nsmitted reference range : <=0.5. The reference r javier was not used to int erpret this result as normal/abnormal . [facility] HospitalRigcdihNVXQIVYYEK9964-00-02 09:50:00 Test Item Value Reference Range Interpretation Comments Monocytes # (test code 0.6 See_Comment [Aut omated message] The = Monocytes #) system which generated this result tra nsmitted reference range : <=0.8. The reference r javier was not used to int erpret this result as normal/abnormal . [facility] HospitalDgciwxxBTBFEDOVSH3102-30-29 09:50:00 Test Item Value Reference Range Interpretation Comments Lymphocytes # (test code = Lymphocytes 0.9 1.0-5.5 #) [facility] HospitalZccqahiDARJVMSBEZ3187-93-44 09:50:00 Test Item Value Reference Range Interpretation Comments Hct (test code = Hct) 23.3 36.0-48.0 [facility] HospitalXcjyymaYRBDADFYYK4211-96-41 09:50:00 Test Item Value Reference Range Interpretation Comments MPV (test code = MPV) 8.0 7.4-10.4 [facility] HospitalVbrjdcwSWRLLYMZDH3837-53-78 09:50:00 Test Item Value Reference Range Interpretation Comments Platelet (test code = Platelet) 177 133-450 [facility] HospitalAyoxiigQROLRCPEAJ0060-51-70 09:50:00 Test Item Value Reference Range Interpretation Comments RDW (test code = RDW) 16.1 11.5-14.5 [facility] HospitalVcxefwkYWOFYWNUFM3600-84-97 09:50:00 Test Item Value Reference Range Interpretation Comments MCHC (test code = MCHC) 35.0 32.0-36.0 [facility] HospitalKyesfmsRQGKALHWBJ3950-69-64 09:50:00 Test Item Value Reference Range Interpretation Comments WBC (test code = WBC) 4.3 3.7-10.4 [facility] HospitalMghieshNAVOFZNOGK4014-12-07 09:50:00 Test Item Value Reference Range Interpretation Comments Hgb (test code = Hgb) 8.2 12.0-16.0 [facility] HospitalSrrvccbLFIGOZYYWD5686-60-44 09:50:00 Test Item Value Reference Range Interpretation Comments RBC (test code = RBC) 2.66 4.20-5.40 [facility] HospitalYjbhlnbEWQIZFANJT7537-27-40 09:50:00 Test Item Value Reference Range Interpretation Comments MCH (test code = MCH) 30.6 pg 27.0-31.0 [facility] HospitalRkbsosrLXHRNVUGYY7144-84-88 09:50:00 Test Item Value Reference Range Interpretation Comments MCV (test code = MCV) 87.5 81.0-99.0 [facility]2014-05-01 09:50:00 Test Item Value Reference Range Interpretation Comments Magnesium Lvl (test code = Magnesium 1.5 1.8-2.4 Lvl) [facility]2014-05-01 09:50:00 Test Item Value Reference Range Interpretation Comments eGFR (test code = eGFR) 104 [facility]2014-05-01 09:50:00 Test Item Value Reference Range Interpretation Comments Chloride Lvl (test code = Chloride Lvl) 104 95-109 [facility]2014-05-01 09:50:00 Test Item Value Reference Range Interpretation Comments Potassium Lvl (test code = Potassium 4.2 3.5-5.1 Lvl) [facility]2014-05-01 09:50:00 Test Item Value Reference Range Interpretation Comments Calcium Lvl (test code = Calcium Lvl) 7.9 8.5-10.5 [facility]2014-05-01 09:50:00 Test Item Value Reference Range Interpretation Comments CO2 (test code = CO2) 27 24-32 [place] 158624-05-01 09:50:00 Test Item Value Reference Range Interpretation Comments Creatinine Lvl (test code = Creatinine 0.7 0.5-1.4 Lvl) [facility]2014-05-01 09:50:00 Test Item Value Reference Range Interpretation Comments BUN (test code = BUN) 6 7-22 [place] 158624-05-01 09:50:00 Test Item Value Reference Range Interpretation Comments Glucose Lvl (test code = Glucose Lvl) 71 70-99 [facility]2014-05-01 09:50:00 Test Item Value Reference Range Interpretation Comments Sodium Lvl (test code = Sodium Lvl) 139 135-145 [facility]2014-05-01 09:50:00 Test Item Value Reference Range Interpretation Comments AGAP (test code = AGAP) 12.2 10.0-20.0 [place] 603814-05-01 09:50:00 Test Item Value Reference Range Interpretation Comments Segs (test code = Segs) 60.8 45.0-75.0 [facility] HospitalYasaoewDCGNXTUELA8887-05-63 09:50:00 Test Item Value Reference Range Interpretation Comments Segs-Bands # (test code = Segs-Bands #) 2.6 1.5-8.1 [place] [address]-05-01 09:50:00 Test Item Value Reference Range Interpretation Comments Basophils (test code = 0.5 See_Comment [Aut omated message] The Basophils) system which nerated this result tra nsmitted reference range : <=1.0. The reference r javier was not used to int erpret this result as normal/abnormal . [facility] HospitalPhkmhwrYVSGTKJDWO6108-83-99 09:50:00 Test Item Value Reference Range Interpretation Comments Eosinophils (test code = 3.6 See_Comment [A utomated message] The Eosinophils) system which ge nerated this result tra nsmitted reference range : <=4.0. The reference r javier was not used to int erpret this result as normal/abnormal . [facility] HospitalWihfcooSINRCOZTEV6950-83-67 09:50:00 Test Item Value Reference Range Interpretation Comments Monocytes (test code = Monocytes) 13.4 2.0-12.0 [facility] HospitalHsrarkrVYSRAQTIMP7048-43-94 09:50:00 Test Item Value Reference Range Interpretation Comments Lymphocytes (test code = Lymphocytes) 21.7 20.0-40.0 [facility] HospitalUtanbqgQZMOYOSIVP7461-71-36 09:50:00 Test Item Value Reference Range Interpretation Comments Eosinophils # (test code 0.2 See_Comment [A utomated message] The = Eosinophils #) system whic h generated this result tra nsmitted reference range : <=0.5. The reference r javier was not used to int erpret this result as normal/abnormal . [facility] HospitalPbatzxbDZODZRICXN2897-72-26 09:50:00 Test Item Value Reference Range Interpretation Comments Monocytes # (test code 0.6 See_Comment [Aut omated message] The = Monocytes #) system which generated this result tra nsmitted reference range : <=0.8. The reference r javier was not used to int erpret this result as normal/abnormal . [facility] HospitalRkyjiohCTQSJOGSID0141-03-46 09:50:00 Test Item Value Reference Range Interpretation Comments Lymphocytes # (test code = Lymphocytes 0.9 1.0-5.5 #) [facility] HospitalSszugqnRMDSHUCQSD9782-15-90 09:50:00 Test Item Value Reference Range Interpretation Comments Hct (test code = Hct) 23.3 36.0-48.0 [facility] HospitalLlpaovnNZMSIXJFOV4146-25-41 09:50:00 Test Item Value Reference Range Interpretation Comments MPV (test code = MPV) 8.0 7.4-10.4 [facility] HospitalXjedhfjHCEAWZEMIX4457-77-71 09:50:00 Test Item Value Reference Range Interpretation Comments Platelet (test code = Platelet) 177 133-450 [facility] HospitalWqlplwcKPTAPREWVU4999-64-64 09:50:00 Test Item Value Reference Range Interpretation Comments RDW (test code = RDW) 16.1 11.5-14.5 [facility] HospitalShduohcDNMDPWJDKH2454-00-69 09:50:00 Test Item Value Reference Range Interpretation Comments MCHC (test code = MCHC) 35.0 32.0-36.0 [facility] HospitalXefzkxbKOUSREXCSA6082-02-06 09:50:00 Test Item Value Reference Range Interpretation Comments WBC (test code = WBC) 4.3 3.7-10.4 [facility] HospitalHrfughuMYJRAXPKXL9324-44-03 09:50:00 Test Item Value Reference Range Interpretation Comments Hgb (test code = Hgb) 8.2 12.0-16.0 [facility] HospitalQdwignrSZWASQAGPQ3806-12-34 09:50:00 Test Item Value Reference Range Interpretation Comments RBC (test code = RBC) 2.66 4.20-5.40 [facility] HospitalDnqjvdqDYCQETPWPA0663-64-33 09:50:00 Test Item Value Reference Range Interpretation Comments MCH (test code = MCH) 30.6 pg 27.0-31.0 [facility] HospitalYfotqqsTBHISZLQYT6314-99-24 09:50:00 Test Item Value Reference Range Interpretation Comments MCV (test code = MCV) 87.5 81.0-99.0 [facility]2014-04-30 09:30:00 Test Item Value Reference Range Interpretation Comments Phosphorus (test code = Phosphorus) 3.1 2.5-4.5 [facility]2014-04-30 09:30:00 Test Item Value Reference Range Interpretation Comments Magnesium Lvl (test code = Magnesium 1.3 1.8-2.4 Lvl) [facility]2014-04-30 09:30:00 Test Item Value Reference Range Interpretation Comments eGFR (test code = eGFR) 77 [facility]2014-04-30 09:30:00 Test Item Value Reference Range Interpretation Comments Creatinine Lvl (test code = Creatinine 0.9 0.5-1.4 Lvl) [facility]2014-04-30 09:30:00 Test Item Value Reference Range Interpretation Comments Glucose Lvl (test code = Glucose Lvl) 67 70-99 [facility]2014-04-30 09:30:00 Test Item Value Reference Range Interpretation Comments BUN (test code = BUN) 11 7-22 [facility]2014-04-30 09:30:00 Test Item Value Reference Range Interpretation Comments CO2 (test code = CO2) 26 24-32 [facility]2014-04-30 09:30:00 Test Item Value Reference Range Interpretation Comments AGAP (test code = AGAP) 12.1 10.0-20.0 [facility]2014-04-30 09:30:00 Test Item Value Reference Range Interpretation Comments Chloride Lvl (test code = Chloride Lvl) 104 95-109 [facility]2014-04-30 09:30:00 Test Item Value Reference Range Interpretation Comments Calcium Lvl (test code = Calcium Lvl) 7.8 8.5-10.5 [facility]2014-04-30 09:30:00 Test Item Value Reference Range Interpretation Comments Potassium Lvl (test code = Potassium 4.1 3.5-5.1 Lvl) [facility]2014-04-30 09:30:00 Test Item Value Reference Range Interpretation Comments Sodium Lvl (test code = Sodium Lvl) 138 135-145 [facility]ov[facility]HQYQASCTC5930-95-10 09:30:00 Test Item Value Reference Range Interpretation Comments MCHC (test code = MCHC) 34.3 32.0-36.0 [facility] HospitalUqqjmzzABYHMLFAVS0249-82-37 09:30:00 Test Item Value Reference Range Interpretation Comments RDW (test code = RDW) 16.8 11.5-14.5 [facility] HospitalRgrmsgjVQQFWIMSFJ0003-16-62 09:30:00 Test Item Value Reference Range Interpretation Comments MCV (test code = MCV) 88.6 81.0-99.0 [facility] HospitalHdgldbmAOZWZTJKUE8101-97-08 09:30:00 Test Item Value Reference Range Interpretation Comments RBC (test code = RBC) 2.80 4.20-5.40 [facility] HospitalIorhjbfDAVPMZWXUB8471-70-14 09:30:00 Test Item Value Reference Range Interpretation Comments WBC (test code = WBC) 5.1 3.7-10.4 [facility] HospitalUsdfzaqNTJWMSAONP4404-43-17 09:30:00 Test Item Value Reference Range Interpretation Comments Platelet (test code = Platelet) 166 133-450 [facility] HospitalYrbuutkWWSNKAJMPN5057-38-65 09:30:00 Test Item Value Reference Range Interpretation Comments MCH (test code = MCH) 30.4 pg 27.0-31.0 [facility] HospitalEbrdvitFRNHNTLRWP1884-64-16 09:30:00 Test Item Value Reference Range Interpretation Comments Hgb (test code = Hgb) 8.5 12.0-16.0 [facility] HospitalOkgsvdtEJYKYSSQPC5413-22-06 09:30:00 Test Item Value Reference Range Interpretation Comments Hct (test code = Hct) 24.8 36.0-48.0 [facility] HospitalWoztdwrDPAQJKQMYO6282-94-82 09:30:00 Test Item Value Reference Range Interpretation Comments MPV (test code = MPV) 8.1 7.4-10.4 [facility] HospitalVwidrimDQPOQYCVPT3515-66-03 09:30:00 Test Item Value Reference Range Interpretation Comments Basophils # (test code = Basophils #) 0.0 <=0.2 [facility] HospitalPljauzlBVTLDGBTVB9102-63-77 09:30:00 Test Item Value Reference Range Interpretation Comments Eosinophils # (test code = Eosinophils 0.1 <=0.5 #) [facility] HospitalPatxguzFNCIQVZBES6992-12-19 09:30:00 Test Item Value Reference Range Interpretation Comments Monocytes # (test code = Monocytes #) 0.6 <=0.8 [facility] HospitalUhghalaXTQAWASGCL5239-47-68 09:30:00 Test Item Value Reference Range Interpretation Comments Eosinophils (test code = Eosinophils) 1.4 <=4.0 [facility] HospitalZzevmneAZCEVIDXAE4080-46-69 09:30:00 Test Item Value Reference Range Interpretation Comments Lymphocytes # (test code = Lymphocytes 1.0 1.0-5.5 #) [facility] HospitalTccgaflFFQMHWQHSI5475-84-93 09:30:00 Test Item Value Reference Range Interpretation Comments Segs-Bands # (test code = Segs-Bands #) 3.3 1.5-8.1 [facility] HospitalPpsjfohFZUEEGZJOH7961-21-01 09:30:00 Test Item Value Reference Range Interpretation Comments Segs (test code = Segs) 65.3 45.0-75.0 [facility] HospitalThobwrvVLZICASYNJ1531-29-34 09:30:00 Test Item Value Reference Range Interpretation Comments Lymphocytes (test code = Lymphocytes) 20.6 20.0-40.0 [facility] HospitalMafgxhkZXIJKULNDC9642-29-99 09:30:00 Test Item Value Reference Range Interpretation Comments RBC Morph (test code = Normal (09/22/13 4:30 RBC Morph) AM) [facility] HospitalSfidukqYATSDVJXJQ3273-99-26 09:30:00 Test Item Value Reference Range Interpretation Comments Basophils (test code = Basophils) 0.3 <=1.0 [facility] HospitalImktheqXUQHVTEQVY6301-76-49 09:30:00 Test Item Value Reference Range Interpretation Comments Plt Morph (test code = Normal (09/22/13 4:30 Plt Morph) AM) [facility] HospitalYahrnwsJOQDGOFWVG4690-02-97 09:30:00 Test Item Value Reference Range Interpretation Comments Monocytes (test code = Monocytes) 12.4 2.0-12.0 [facility]2014-04-30 09:30:00 Test Item Value Reference Range Interpretation Comments Phosphorus (test code = Phosphorus) 3.1 2.5-4.5 [facility]2014-04-30 09:30:00 Test Item Value Reference Range Interpretation Comments Magnesium Lvl (test code = Magnesium 1.3 1.8-2.4 Lvl) [facility]2014-04-30 09:30:00 Test Item Value Reference Range Interpretation Comments eGFR (test code = eGFR) 77 [facility]2014-04-30 09:30:00 Test Item Value Reference Range Interpretation Comments Creatinine Lvl (test code = Creatinine 0.9 0.5-1.4 Lvl) [facility]2014-04-30 09:30:00 Test Item Value Reference Range Interpretation Comments Glucose Lvl (test code = Glucose Lvl) 67 70-99 [facility]2014-04-30 09:30:00 Test Item Value Reference Range Interpretation Comments BUN (test code = BUN) 11 7-22 [facility]2014-04-30 09:30:00 Test Item Value Reference Range Interpretation Comments CO2 (test code = CO2) 26 24-32 [facility]2014-04-30 09:30:00 Test Item Value Reference Range Interpretation Comments AGAP (test code = AGAP) 12.1 10.0-20.0 [facility]2014-04-30 09:30:00 Test Item Value Reference Range Interpretation Comments Chloride Lvl (test code = Chloride Lvl) 104 95-109 [facility]2014-04-30 09:30:00 Test Item Value Reference Range Interpretation Comments Calcium Lvl (test code = Calcium Lvl) 7.8 8.5-10.5 [facility]2014-04-30 09:30:00 Test Item Value Reference Range Interpretation Comments Potassium Lvl (test code = Potassium 4.1 3.5-5.1 Lvl) [facility]2014-04-30 09:30:00 Test Item Value Reference Range Interpretation Comments Sodium Lvl (test code = Sodium Lvl) 138 135-145 [facility] HospitalQprpfmmBNJCZRNCGQ3518-41-62 09:30:00 Test Item Value Reference Range Interpretation Comments MCHC (test code = MCHC) 34.3 32.0-36.0 [facility] HospitalYenxowvZQVFKAOXDP3051-57-19 09:30:00 Test Item Value Reference Range Interpretation Comments RDW (test code = RDW) 16.8 11.5-14.5 [facility] HospitalPxjeskgFNHPREPVNY8701-87-38 09:30:00 Test Item Value Reference Range Interpretation Comments MCV (test code = MCV) 88.6 81.0-99.0 [facility] HospitalLwgrxaqFMHJIRCLBX7362-00-73 09:30:00 Test Item Value Reference Range Interpretation Comments RBC (test code = RBC) 2.80 4.20-5.40 [facility] HospitalFqqkmisYBBPJYJKPB7008-16-02 09:30:00 Test Item Value Reference Range Interpretation Comments WBC (test code = WBC) 5.1 3.7-10.4 [facility] HospitalZmnjukvILHLAQTPAA6039-23-58 09:30:00 Test Item Value Reference Range Interpretation Comments Platelet (test code = Platelet) 166 133-450 [facility] HospitalSykajxbPOCDAEILMY4210-36-28 09:30:00 Test Item Value Reference Range Interpretation Comments MCH (test code = MCH) 30.4 pg 27.0-31.0 [facility] HospitalGufgrvlEFJHREFNED3498-84-72 09:30:00 Test Item Value Reference Range Interpretation Comments Hgb (test code = Hgb) 8.5 12.0-16.0 [facility] HospitalBxnkawwNZCATLWBSW9639-57-19 09:30:00 Test Item Value Reference Range Interpretation Comments Hct (test code = Hct) 24.8 36.0-48.0 [facility] HospitalEmfrdihQNDNRVBPQZ5509-77-55 09:30:00 Test Item Value Reference Range Interpretation Comments MPV (test code = MPV) 8.1 7.4-10.4 [facility] HospitalFxxkpssNOBCHUQVOD7649-44-67 09:30:00 Test Item Value Reference Range Interpretation Comments Basophils # (test code 0.0 See_Comment [Aut omated message] The = Basophils #) system which generated this result tra nsmitted reference range : <=0.2. The reference r javier was not used to int erpret this result as normal/abnormal . [facility] HospitalLbixsjzZZQWRVCIHP3368-58-35 09:30:00 Test Item Value Reference Range Interpretation Comments Eosinophils # (test code 0.1 See_Comment [A utomated message] The = Eosinophils #) system whic h generated this result tra nsmitted reference range : <=0.5. The reference r javier was not used to int erpret this result as normal/abnormal . [facility] HospitalBhmedsyFFTMIZGJXQ5239-34-49 09:30:00 Test Item Value Reference Range Interpretation Comments Monocytes # (test code 0.6 See_Comment [Aut omated message] The = Monocytes #) system which generated this result tra nsmitted reference range : <=0.8. The reference r javier was not used to int erpret this result as normal/abnormal . [facility] HospitalPugrjzdTDLGRJLVRN4004-26-65 09:30:00 Test Item Value Reference Range Interpretation Comments Eosinophils (test code = 1.4 See_Comment [A utomated message] The Eosinophils) system which ge nerated this result tra nsmitted reference range : <=4.0. The reference r javier was not used to int erpret this result as normal/abnormal . [facility] HospitalRmugjsnKJAPYRDTDN2270-39-71 09:30:00 Test Item Value Reference Range Interpretation Comments Lymphocytes # (test code = Lymphocytes 1.0 1.0-5.5 #) [facility] HospitalBlczsiuCKFPQNMULF3735-96-77 09:30:00 Test Item Value Reference Range Interpretation Comments Segs-Bands # (test code = Segs-Bands #) 3.3 1.5-8.1 [facility] HospitalXjuevfmZENSLIWNQB9308-71-43 09:30:00 Test Item Value Reference Range Interpretation Comments Segs (test code = Segs) 65.3 45.0-75.0 [facility] HospitalCtnhzkaKCNAHYOJLF2008-47-18 09:30:00 Test Item Value Reference Range Interpretation Comments Lymphocytes (test code = Lymphocytes) 20.6 20.0-40.0 [facility] HospitalMebmlsvKQVOJCNEKD1389-67-38 09:30:00 Test Item Value Reference Range Interpretation Comments RBC Morph (test code = Normal (09/22/13 4:30 RBC Morph) AM) [facility] HospitalKvcaujcKSUZHYHFRZ6636-42-01 09:30:00 Test Item Value Reference Range Interpretation Comments Basophils (test code = 0.3 See_Comment [Aut omated message] The Basophils) system which ge nerated this result tra nsmitted reference range : <=1.0. The reference r javier was not used to int erpret this result as normal/abnormal . [facility] HospitalSacirkcEMTAUKJHBI2456-14-36 09:30:00 Test Item Value Reference Range Interpretation Comments Plt Morph (test code = Normal (09/22/13 4:30 Plt Morph) AM) [facility] HospitalTmrbfbkHXCDEXEDIT1941-94-62 09:30:00 Test Item Value Reference Range Interpretation Comments Monocytes (test code = Monocytes) 12.4 2.0-12.0 [facility]2014-04-30 09:30:00 Test Item Value Reference Range Interpretation Comments Phosphorus (test code = Phosphorus) 3.1 2.5-4.5 [facility]2014-04-30 09:30:00 Test Item Value Reference Range Interpretation Comments Magnesium Lvl (test code = Magnesium 1.3 1.8-2.4 Lvl) [facility]2014-04-30 09:30:00 Test Item Value Reference Range Interpretation Comments eGFR (test code = eGFR) 77 [facility]2014-04-30 09:30:00 Test Item Value Reference Range Interpretation Comments Creatinine Lvl (test code = Creatinine 0.9 0.5-1.4 Lvl) [facility]2014-04-30 09:30:00 Test Item Value Reference Range Interpretation Comments Glucose Lvl (test code = Glucose Lvl) 67 70-99 [facility]2014-04-30 09:30:00 Test Item Value Reference Range Interpretation Comments BUN (test code = BUN) 11 7-22 [facility]2014-04-30 09:30:00 Test Item Value Reference Range Interpretation Comments CO2 (test code = CO2) 26 24-32 [facility]2014-04-30 09:30:00 Test Item Value Reference Range Interpretation Comments AGAP (test code = AGAP) 12.1 10.0-20.0 [facility]2014-04-30 09:30:00 Test Item Value Reference Range Interpretation Comments Chloride Lvl (test code = Chloride Lvl) 104 95-109 [facility]2014-04-30 09:30:00 Test Item Value Reference Range Interpretation Comments Calcium Lvl (test code = Calcium Lvl) 7.8 8.5-10.5 [facility]2014-04-30 09:30:00 Test Item Value Reference Range Interpretation Comments Potassium Lvl (test code = Potassium 4.1 3.5-5.1 Lvl) [facility]2014-04-30 09:30:00 Test Item Value Reference Range Interpretation Comments Sodium Lvl (test code = Sodium Lvl) 138 135-145 [facility] HospitalPocoivtUTZTUAKFVM1187-52-01 09:30:00 Test Item Value Reference Range Interpretation Comments MCHC (test code = MCHC) 34.3 32.0-36.0 [facility] HospitalDlpvqgjMNDAXOIYUR8086-09-13 09:30:00 Test Item Value Reference Range Interpretation Comments RDW (test code = RDW) 16.8 11.5-14.5 [facility] HospitalKtuegnvGOEVNPKNKW7455-41-12 09:30:00 Test Item Value Reference Range Interpretation Comments MCV (test code = MCV) 88.6 81.0-99.0 [facility] HospitalIjdekcuKHSNFCFWNG0043-18-51 09:30:00 Test Item Value Reference Range Interpretation Comments RBC (test code = RBC) 2.80 4.20-5.40 [facility] HospitalZpbczwzMYEXRUIRQZ7900-44-55 09:30:00 Test Item Value Reference Range Interpretation Comments WBC (test code = WBC) 5.1 3.7-10.4 [facility] HospitalVrplfxdCSIZDMJYKD5648-18-70 09:30:00 Test Item Value Reference Range Interpretation Comments Platelet (test code = Platelet) 166 133-450 [facility] HospitalXztkejyDSLQSHSUUL0127-39-70 09:30:00 Test Item Value Reference Range Interpretation Comments MCH (test code = MCH) 30.4 pg 27.0-31.0 [facility] HospitalMvpbiduMGVCZOEJLS9121-52-31 09:30:00 Test Item Value Reference Range Interpretation Comments Hgb (test code = Hgb) 8.5 12.0-16.0 [facility] HospitalIqotcesYKWJGPPQOT1509-60-35 09:30:00 Test Item Value Reference Range Interpretation Comments Hct (test code = Hct) 24.8 36.0-48.0 [facility] HospitalSxzzsemIAEEJUGTVR3490-03-32 09:30:00 Test Item Value Reference Range Interpretation Comments MPV (test code = MPV) 8.1 7.4-10.4 [facility] HospitalWmupyenYLWREUQWHK2600-68-05 09:30:00 Test Item Value Reference Range Interpretation Comments Basophils # (test code 0.0 See_Comment [Aut omated message] The = Basophils #) system which generated this result tra nsmitted reference range : <=0.2. The reference r javier was not used to int erpret this result as normal/abnormal . [facility] HospitalNqmpplzZIPYPZPLKL7166-55-39 09:30:00 Test Item Value Reference Range Interpretation Comments Eosinophils # (test code 0.1 See_Comment [A utomated message] The = Eosinophils #) system whic h generated this result tra nsmitted reference range : <=0.5. The reference r javier was not used to int erpret this result as normal/abnormal . [facility] HospitalCpxbywrPRFCPUYNAN9817-34-41 09:30:00 Test Item Value Reference Range Interpretation Comments Monocytes # (test code 0.6 See_Comment [Aut omated message] The = Monocytes #) system which generated this result tra nsmitted reference range : <=0.8. The reference r javier was not used to int erpret this result as normal/abnormal . [facility] HospitalRanltzcOWULSTXPAC1586-81-60 09:30:00 Test Item Value Reference Range Interpretation Comments Eosinophils (test code = 1.4 See_Comment [A utomated message] The Eosinophils) system which ge nerated this result tra nsmitted reference range : <=4.0. The reference r javier was not used to int erpret this result as normal/abnormal . [facility] HospitalNcgrearARDGUHNXWZ8145-43-70 09:30:00 Test Item Value Reference Range Interpretation Comments Lymphocytes # (test code = Lymphocytes 1.0 1.0-5.5 #) [facility] HospitalMgonlkrYYSANAOMOC2002-40-46 09:30:00 Test Item Value Reference Range Interpretation Comments Segs-Bands # (test code = Segs-Bands #) 3.3 1.5-8.1 [facility] HospitalOlqcymaGMBRWPBSYF7107-47-68 09:30:00 Test Item Value Reference Range Interpretation Comments Segs (test code = Segs) 65.3 45.0-75.0 [facility] HospitalNvbhryeRZILLOCOLQ5713-65-82 09:30:00 Test Item Value Reference Range Interpretation Comments Lymphocytes (test code = Lymphocytes) 20.6 20.0-40.0 [facility] HospitalTtxsjceXUAZBJAXYP7291-95-70 09:30:00 Test Item Value Reference Range Interpretation Comments RBC Morph (test code = Normal (09/22/13 4:30 RBC Morph) AM) [facility] HospitalVnbhbptMBHVEMIDXZ6285-37-38 09:30:00 Test Item Value Reference Range Interpretation Comments Basophils (test code = 0.3 See_Comment [Aut omated message] The Basophils) system which ge nerated this result tra nsmitted reference range : <=1.0. The reference r javier was not used to int erpret this result as normal/abnormal . [facility] HospitalTnkljjzHSRTEHLQMN6538-92-81 09:30:00 Test Item Value Reference Range Interpretation Comments Plt Morph (test code = Normal (09/22/13 4:30 Plt Morph) AM) [facility] HospitalGndfkesBRXYMPGPIN6004-44-67 09:30:00 Test Item Value Reference Range Interpretation Comments Monocytes (test code = Monocytes) 12.4 2.0-12.0 [facility]2014-04-29 10:00:00 Test Item Value Reference Range Interpretation Comments eGFR (test code = eGFR) 104 [facility]2014-04-29 10:00:00 Test Item Value Reference Range Interpretation Comments Creatinine Lvl (test code = Creatinine 0.7 0.5-1.4 Lvl) [facility]2014-04-29 10:00:00 Test Item Value Reference Range Interpretation Comments Sodium Lvl (test code = Sodium Lvl) 138 135-145 [facility]2014-04-29 10:00:00 Test Item Value Reference Range Interpretation Comments BUN (test code = BUN) 9 7-22 [facility]2014-04-29 10:00:00 Test Item Value Reference Range Interpretation Comments Potassium Lvl (test code = Potassium 4.5 3.5-5.1 Lvl) [facility]2014-04-29 10:00:00 Test Item Value Reference Range Interpretation Comments Chloride Lvl (test code = Chloride Lvl) 103 95-109 [facility]2014-04-29 10:00:00 Test Item Value Reference Range Interpretation Comments Calcium Lvl (test code = Calcium Lvl) 8.2 8.5-10.5 [facility]2014-04-29 10:00:00 Test Item Value Reference Range Interpretation Comments CO2 (test code = CO2) 25 24-32 [facility]2014-04-29 10:00:00 Test Item Value Reference Range Interpretation Comments Glucose Lvl (test code = Glucose Lvl) 88 70-99 [facility]2014-04-29 10:00:00 Test Item Value Reference Range Interpretation Comments AGAP (test code = AGAP) 14.5 10.0-20.0 [facility] HospitalAtteyccNZQQKEWXFQ7764-20-96 10:00:00 Test Item Value Reference Range Interpretation Comments Polychrom (test code = Slight (09/21/13 5:00 Polychrom) AM) [facility] HospitalIlqhkquCQRWNDNTNP9456-31-39 10:00:00 Test Item Value Reference Range Interpretation Comments Eosinophils (test code = Eosinophils) 0.1 <=4.0 [facility] HospitalAaahgtuVHGDGPVDMT3145-77-85 10:00:00 Test Item Value Reference Range Interpretation Comments Segs-Bands # (test code = Segs-Bands #) 6.1 1.5-8.1 [facility] HospitalJbmayqqKLCIRKTHMK9779-12-62 10:00:00 Test Item Value Reference Range Interpretation Comments Basophils (test code = Basophils) 0.0 <=1.0 [facility] HospitalYurmyzwTANZXZBBXS9819-29-21 10:00:00 Test Item Value Reference Range Interpretation Comments Basophils # (test code = Basophils #) 0.0 <=0.2 [facility] HospitalEojzjsxEHVXDPDOPP3600-84-16 10:00:00 Test Item Value Reference Range Interpretation Comments Eosinophils # (test code = Eosinophils 0.0 <=0.5 #) [facility] HospitalBojofvoKDDOHIKECL9865-51-26 10:00:00 Test Item Value Reference Range Interpretation Comments Hypochrom (test code = Slight (09/21/13 5:00 Hypochrom) AM) [facility] HospitalDkeujuwUNJXPVTKID6274-21-90 10:00:00 Test Item Value Reference Range Interpretation Comments Lymphocytes # (test code = Lymphocytes 0.7 1.0-5.5 #) [facility] HospitalDadfchsBFYLTYPVUE1942-37-37 10:00:00 Test Item Value Reference Range Interpretation Comments Monocytes # (test code = Monocytes #) 0.6 <=0.8 [facility] HospitalDfuusnlKZNXMBBIOA1481-07-53 10:00:00 Test Item Value Reference Range Interpretation Comments Lymphocytes (test code = Lymphocytes) 9.3 20.0-40.0 [facility] HospitalOyxekveEZBILDKQRP5538-30-63 10:00:00 Test Item Value Reference Range Interpretation Comments Monocytes (test code = Monocytes) 8.4 2.0-12.0 [facility] HospitalBpkmlciSNNRDBRQLS1585-51-45 10:00:00 Test Item Value Reference Range Interpretation Comments Plt Morph (test code = Normal (09/21/13 5:00 Plt Morph) AM) [facility] HospitalJkhqzfeZHLVFCJAZR5450-99-70 10:00:00 Test Item Value Reference Range Interpretation Comments Segs (test code = Segs) 82.2 45.0-75.0 [facility] HospitalTftillcYNSMULXGTM4380-45-74 10:00:00 Test Item Value Reference Range Interpretation Comments RBC (test code = RBC) 3.01 4.20-5.40 [facility] HospitalLkckegzGMYCLWBFLD3845-93-36 10:00:00 Test Item Value Reference Range Interpretation Comments WBC (test code = WBC) 7.4 3.7-10.4 [facility] HospitalKrfusghTUHYLBKGUT6752-50-98 10:00:00 Test Item Value Reference Range Interpretation Comments MCH (test code = MCH) 29.5 pg 27.0-31.0 [facility] HospitalKecvebrGHPBAYCRKI9775-77-27 10:00:00 Test Item Value Reference Range Interpretation Comments Hgb (test code = Hgb) 8.9 12.0-16.0 [facility] HospitalNuuyvykRTWSXOZMDW6194-68-07 10:00:00 Test Item Value Reference Range Interpretation Comments MCV (test code = MCV) 88.1 81.0-99.0 [facility] HospitalWqyjabmHBBCGQEAOF4687-29-85 10:00:00 Test Item Value Reference Range Interpretation Comments Hct (test code = Hct) 26.5 36.0-48.0 [facility] HospitalMynvuhkZWKCVDIYWQ5794-58-18 10:00:00 Test Item Value Reference Range Interpretation Comments MCHC (test code = MCHC) 33.5 32.0-36.0 [facility] HospitalXuebncxBYOHJOVUFA9868-91-54 10:00:00 Test Item Value Reference Range Interpretation Comments Platelet (test code = Platelet) 204 133-450 [facility] HospitalUfwfbykYSYBZBUIWT6940-28-86 10:00:00 Test Item Value Reference Range Interpretation Comments RDW (test code = RDW) 16.6 11.5-14.5 [facility] HospitalLanlusvDFACXJNVMQ9314-85-66 10:00:00 Test Item Value Reference Range Interpretation Comments MPV (test code = MPV) 8.4 7.4-10.4 [facility]2014-04-29 10:00:00 Test Item Value Reference Range Interpretation Comments eGFR (test code = eGFR) 104 [facility]2014-04-29 10:00:00 Test Item Value Reference Range Interpretation Comments Creatinine Lvl (test code = Creatinine 0.7 0.5-1.4 Lvl) [facility]2014-04-29 10:00:00 Test Item Value Reference Range Interpretation Comments Sodium Lvl (test code = Sodium Lvl) 138 135-145 [facility]2014-04-29 10:00:00 Test Item Value Reference Range Interpretation Comments BUN (test code = BUN) 9 7-22 [facility]2014-04-29 10:00:00 Test Item Value Reference Range Interpretation Comments Potassium Lvl (test code = Potassium 4.5 3.5-5.1 Lvl) [facility] [facility]00 Test Item Value Reference Range Interpretation Comments Chloride Lvl (test code = Chloride Lvl) 103 95-109 [facility]2014-04-29 10:00:00 Test Item Value Reference Range Interpretation Comments Calcium Lvl (test code = Calcium Lvl) 8.2 8.5-10.5 [facility]2014-04-29 10:00:00 Test Item Value Reference Range Interpretation Comments CO2 (test code = CO2) 25 24-32 [facility]2014-04-29 10:00:00 Test Item Value Reference Range Interpretation Comments Glucose Lvl (test code = Glucose Lvl) 88 70-99 [facility]2014-04-29 10:00:00 Test Item Value Reference Range Interpretation Comments AGAP (test code = AGAP) 14.5 10.0-20.0 [facility]oqBAHDLWRHJV3536-96-14 10:00:00 Test Item Value Reference Range Interpretation Comments Polychrom (test code = Slight (09/21/13 5:00 Polychrom) AM) [facility] HospitalPlgcbtwSGKZGGOBRD2257-10-15 10:00:00 Test Item Value Reference Range Interpretation Comments Eosinophils (test code = 0.1 See_Comment [A utomated message] The Eosinophils) system which ge nerated this result tra nsmitted reference range : <=4.0. The reference r javier was not used to int erpret this result as normal/abnormal . [facility] HospitalUikqtapJTBMTGWQAE6196-92-69 10:00:00 Test Item Value Reference Range Interpretation Comments Segs-Bands # (test code = Segs-Bands #) 6.1 1.5-8.1 [facility] HospitalGmtjwrqQJIFMMDEBU1961-[facility] 10:00:00 Test Item Value Reference Range Interpretation Comments Basophils (test code = 0.0 See_Comment [Aut omated message] The Basophils) system which ge nerated this result tra nsmitted reference range : <=1.0. The reference r javier was not used to int erpret this result as normal/abnormal . [facility] HospitalJhkkhwsVDGVVVVTBT6189-62-39 10:00:00 Test Item Value Reference Range Interpretation Comments Basophils # (test code 0.0 See_Comment [Aut omated message] The = Basophils #) system which generated this result tra nsmitted reference range : <=0.2. The reference r javier was not used to int erpret this result as normal/abnormal . [facility] HospitalSdumqzvYDBELMHEEC7534-99-58 10:00:00 Test Item Value Reference Range Interpretation Comments Eosinophils # (test code 0.0 See_Comment [A utomated message] The = Eosinophils #) system whic h generated this result tra nsmitted reference range : <=0.5. The reference r javire was not used to int erpret this result as normal/abnormal . [facility] HospitalDdunmjkKMPTOJTUOS1727-26-63 10:00:00 Test Item Value Reference Range Interpretation Comments Hypochrom (test code = Slight (09/21/13 5:00 Hypochrom) AM) [facility] HospitalFvgcozeLRSCFXOFFQ9654-14-60 10:00:00 Test Item Value Reference Range Interpretation Comments Lymphocytes # (test code = Lymphocytes 0.7 1.0-5.5 #) [facility] HospitalUdxrlpiLUNJBXFJGH6851-58-89 10:00:00 Test Item Value Reference Range Interpretation Comments Monocytes # (test code 0.6 See_Comment [Aut omated message] The = Monocytes #) system which generated this result tra nsmitted reference range : <=0.8. The reference r javier was not used to int erpret this result as normal/abnormal . [facility] HospitalRowbqwtGCSSJVKMKA0213-92-49 10:00:00 Test Item Value Reference Range Interpretation Comments Lymphocytes (test code = Lymphocytes) 9.3 20.0-40.0 [facility] HospitalEgrthzyPUQQFRAHGC0291-89-52 10:00:00 Test Item Value Reference Range Interpretation Comments Monocytes (test code = Monocytes) 8.4 2.0-12.0 [facility] HospitalOoqqcgjINVUYUNPKN3478-03-26 10:00:00 Test Item Value Reference Range Interpretation Comments Plt Morph (test code = Normal (09/21/13 5:00 Plt Morph) AM) [facility] HospitalDvlaimzSORDXIJKVL1461-30-90 10:00:00 Test Item Value Reference Range Interpretation Comments Segs (test code = Segs) 82.2 45.0-75.0 [facility] HospitalSovfobiENWUHUJVWW5686-70-57 10:00:00 Test Item Value Reference Range Interpretation Comments RBC (test code = RBC) 3.01 4.20-5.40 [facility] HospitalZujwqzpPCQLNFUABA9232-59-96 10:00:00 Test Item Value Reference Range Interpretation Comments WBC (test code = WBC) 7.4 3.7-10.4 [facility] HospitalFvqorspVDWNDTEHAL3058-05-84 10:00:00 Test Item Value Reference Range Interpretation Comments MCH (test code = MCH) 29.5 pg 27.0-31.0 [facility] HospitalOnbgppnZZCJWVLKLG7034-57-51 10:00:00 Test Item Value Reference Range Interpretation Comments Hgb (test code = Hgb) 8.9 12.0-16.0 [facility] HospitalNylnmufWGGRLDXZTP7371-91-43 10:00:00 Test Item Value Reference Range Interpretation Comments MCV (test code = MCV) 88.1 81.0-99.0 [facility] HospitalNsojqeuXRYYEKMLVS0815-80-34 10:00:00 Test Item Value Reference Range Interpretation Comments Hct (test code = Hct) 26.5 36.0-48.0 [facility] HospitalEwduormFTIZHWHQMY4971-66-00 10:00:00 Test Item Value Reference Range Interpretation Comments MCHC (test code = MCHC) 33.5 32.0-36.0 [facility] HospitalNolsmydTPWGDOJHKE9831-26-33 10:00:00 Test Item Value Reference Range Interpretation Comments Platelet (test code = Platelet) 204 133-450 [facility] HospitalBxrwwatYKHATQSNCY4806-00-38 10:00:00 Test Item Value Reference Range Interpretation Comments RDW (test code = RDW) 16.6 11.5-14.5 [facility] HospitalOepobdcKHHQJWGRND0920-94-91 10:00:00 Test Item Value Reference Range Interpretation Comments MPV (test code = MPV) 8.4 7.4-10.4 [facility]2014-04-29 10:00:00 Test Item Value Reference Range Interpretation Comments eGFR (test code = eGFR) 104 [facility]2014-04-29 10:00:00 Test Item Value Reference Range Interpretation Comments Creatinine Lvl (test code = Creatinine 0.7 0.5-1.4 Lvl) [facility]2014-04-29 10:00:00 Test Item Value Reference Range Interpretation Comments Sodium Lvl (test code = Sodium Lvl) 138 135-145 [facility]2014-04-29 10:00:00 Test Item Value Reference Range Interpretation Comments BUN (test code = BUN) 9 7-22 [facility]2014-04-29 10:00:00 Test Item Value Reference Range Interpretation Comments Potassium Lvl (test code = Potassium 4.5 3.5-5.1 Lvl) [facility]2014-04-29 10:00:00 Test Item Value Reference Range Interpretation Comments Chloride Lvl (test code = Chloride Lvl) 103 95-109 [facility]2014-04-29 10:00:00 Test Item Value Reference Range Interpretation Comments Calcium Lvl (test code = Calcium Lvl) 8.2 8.5-10.5 [facility]2014-04-29 10:00:00 Test Item Value Reference Range Interpretation Comments CO2 (test code = CO2) 25 24-32 [facility]2014-04-29 10:00:00 Test Item Value Reference Range Interpretation Comments Glucose Lvl (test code = Glucose Lvl) 88 70-99 [facility]2014-04-29 10:00:00 Test Item Value Reference Range Interpretation Comments AGAP (test code = AGAP) 14.5 10.0-20.0 [facility] HospitalLeivhfdTGWARIOMLU1650-49-10 10:00:00 Test Item Value Reference Range Interpretation Comments Polychrom (test code = Slight (09/21/13 5:00 Polychrom) AM) [facility] HospitalP[id number] 10:00:00 Test Item Value Reference Range Interpretation Comments Eosinophils (test code = 0.1 See_Comment [A utomated message] The Eosinophils) system which ge nerated this result tra nsmitted reference range : <=4.0. The reference r javier was not used to int erpret this result as normal/abnormal . [facility] HospitalUpecnfyKKUZRLOCNJ1152-93-93 10:00:00 Test Item Value Reference Range Interpretation Comments Segs-Bands # (test code = Segs-Bands #) 6.1 1.5-8.1 [facility] HospitalRxrhsokXPKPAFMEKB7091-60-68 10:00:00 Test Item Value Reference Range Interpretation Comments Basophils (test code = 0.0 See_Comment [Aut omated message] The Basophils) system which ge nerated this result tra nsmitted reference range : <=1.0. The reference r javier was not used to int erpret this result as normal/abnormal . [facility] HospitalZroeeoxJZWYIPRMWQ9058-20-79 10:00:00 Test Item Value Reference Range Interpretation Comments Basophils # (test code 0.0 See_Comment [Aut omated message] The = Basophils #) system which generated this result tra nsmitted reference range : <=0.2. The reference r javier was not used to int erpret this result as normal/abnormal . [facility] HospitalMguxuhjSIARHOXCWJ4742-01-20 10:00:00 Test Item Value Reference Range Interpretation Comments Eosinophils # (test code 0.0 See_Comment [A utomated message] The = Eosinophils #) system [facility] h generated this result tra nsmitted reference range : <=0.5. The reference r javier was not used to int erpret this result as normal/abnormal . [facility] HospitalIyaowyaPPMZBPVMZP2090-10-11 10:00:00 Test Item Value Reference Range Interpretation Comments Hypochrom (test code = Slight (09/21/13 5:00 Hypochrom) AM) [facility] HospitalKtuyjyePBFOKWMMLQ9168-87-34 10:00:00 Test Item Value Reference Range Interpretation Comments Lymphocytes # (test code = Lymphocytes 0.7 1.0-5.5 #) [facility] HospitalWvqvqjoIGBNVGDMKR1053-27-02 10:00:00 Test Item Value Reference Range Interpretation Comments Monocytes # (test code 0.6 See_Comment [Aut omated message] The = Monocytes #) system which generated this result tra nsmitted reference range : <=0.8. The reference r javier was not used to int erpret this result as normal/abnormal . [facility] HospitalRtgbgasRCZZUTKSVK4958-42-74 10:00:00 Test Item Value Reference Range Interpretation Comments Lymphocytes (test code = Lymphocytes) 9.3 20.0-40.0 [facility] HospitalUybmztwKVDSKIKEBB2563-90-73 10:00:00 Test Item Value Reference Range Interpretation Comments Monocytes (test code = Monocytes) 8.4 2.0-12.0 [facility] HospitalOajkcbbKSYMNFGVUS0555-38-76 10:00:00 Test Item Value Reference Range Interpretation Comments Plt Morph (test code = Normal (09/21/13 5:00 Plt Morph) AM) [facility] HospitalNxxggcdNXEXOYUCJD2198-54-59 10:00:00 Test Item Value Reference Range Interpretation Comments Segs (test code = Segs) 82.2 45.0-75.0 [facility] HospitalErxmhteWCJTNGWAWB8045-63-44 10:00:00 Test Item Value Reference Range Interpretation Comments RBC (test code = RBC) 3.01 4.20-5.40 [facility] HospitalWcdickyWUVCLQWZNE4506-19-35 10:00:00 Test Item Value Reference Range Interpretation Comments WBC (test code = WBC) 7.4 3.7-10.4 [facility] HospitalTgzwebxSRTQVJVRBG1536-36-18 10:00:00 Test Item Value Reference Range Interpretation Comments MCH (test code = MCH) 29.5 pg 27.0-31.0 [facility] HospitalUpotdbpKRPOBAVFAP9783-75-23 10:00:00 Test Item Value Reference Range Interpretation Comments Hgb (test code = Hgb) 8.9 12.0-16.0 [facility] HospitalZsblvndVVKCHETVXY3451-42-29 10:00:00 Test Item Value Reference Range Interpretation Comments MCV (test code = MCV) 88.1 81.0-99.0 [facility] HospitalRcqquxiIANTFYOKRO3721-36-08 10:00:00 Test Item Value Reference Range Interpretation Comments Hct (test code = Hct) 26.5 36.0-48.0 [facility] HospitalGnniticQZFSBMBVJK0146-81-68 10:00:00 Test Item Value Reference Range Interpretation Comments MCHC (test code = MCHC) 33.5 32.0-36.0 [facility] SuyiirnSLHPKUPDTL9305-49-49 10:00:00 Test Item Value Reference Range Interpretation Comments Platelet (test code = Platelet) 204 133-450 [facility]GrhljggBOYKAPRNUT3422-28-46 10:00:00 Test Item Value Reference Range Interpretation Comments RDW (test code = RDW) 16.6 11.5-14.5 [facility] LwqcgbrDKIBOMJOZQ2036-18-72 10:00:00 Test Item Value Reference Range Interpretation Comments MPV (test code = MPV) 8.4 7.4-10.4 [facility] sezmi [id number] 19:10:00 Test Item Value Reference Range Interpretation Comments ABO/Rh (test code = ABO/Rh) B NEG [facility] sezmi [id number] 19:10:00 Test Item Value Reference Range Interpretation Comments Antibody Scrn (test Negative (09/20/13 2:10 code = Antibody Scrn) PM) [facility] sezmi [id number] 19:10:00 Test Item Value Reference Range Interpretation Comments ABO/Rh (test code = ABO/Rh) B NEG [facility] sezmi [id number] 19:10:00 Test Item Value Reference Range Interpretation Comments Antibody Scrn (test Negative (09/20/13 2:10 code = Antibody Scrn) PM) [facility] sezmi [id number] 19:10:00 Test Item Value Reference Range Interpretation Comments ABO/Rh (test code = ABO/Rh) B NEG [facility] sezmi [id number] 19:10:00 Test Item Value Reference Range Interpretation Comments Antibody Scrn (test Negative (09/20/13 2:10 code = Antibody Scrn) PM) [facility] [employer] [id number] 10:10:00 Test Item Value Reference Range Interpretation Comments AST (test code = AST) 9 <=37 [facility] [employer] [id number] 10:10:00 Test Item Value Reference Range Interpretation Comments Albumin Lvl (test code = Albumin Lvl) 2.7 3.5-5.0 [facility] [id number] 10:10:00 Test Item Value Reference Range Interpretation Comments Total Protein (test code = Total 5.1 6.4-8.4 Protein) [facility]2014-04-27 10:10:00 Test Item Value Reference Range Interpretation Comments Alk Phos (test code = Alk Phos) 63 39-136 [facility]2014-04-27 10:10:00 Test Item Value Reference Range Interpretation Comments ALT (test code = ALT) 11 <=65 [facility]2014-04-27 10:10:00 Test Item Value Reference Range Interpretation Comments Bili Total (test code = Bili Total) 0.7 0.2-1.3 [facility]2014-04-27 10:10:00 Test Item Value Reference Range Interpretation Comments B/C Ratio (test code = B/C Ratio) 9 6-25 [facility]2014-04-27 10:10:00 Test Item Value Reference Range Interpretation Comments Globulin (test code = Globulin) 2.4 2.0-4.0 [facility]2014-04-27 10:10:00 Test Item Value Reference Range Interpretation Comments A/G Ratio (test code = A/G Ratio) 1.1 0.7-1.6 [facility] HospitalJiqjisxLUMADNVBYL5450-50-96 10:10:00 Test Item Value Reference Range Interpretation Comments Basophils # (test code = Basophils #) 0.0 <=0.2 [facility]2014-04-27 10:10:00 Test Item Value Reference Range Interpretation Comments AST (test code = AST) 9 See_Comment [Auto mated message] The system which ge nerated this result transmit max reference range : <=37. The reference range was not used to interpr et this result as luis l/abnormal. [facility]2014-04-27 10:10:00 Test Item Value Reference Range Interpretation Comments Albumin Lvl (test code = Albumin Lvl) 2.7 3.5-5.0 [facility]2014-04-27 10:10:00 Test Item Value Reference Range Interpretation Comments Total Protein (test code = Total 5.1 6.4-8.4 Protein) [facility]2014-04-27 10:10:00 Test Item Value Reference Range Interpretation Comments Alk Phos (test code = Alk Phos) 63 39-136 [facility]2014-04-27 10:10:00 Test Item Value Reference Range Interpretation Comments ALT (test code = ALT) 11 See_Comment [Auto mated message] The system which ge nerated this result transmit max reference range : <=65. The reference range was not used to interpr et this result as luis l/abnormal. [facility]2014-04-27 10:10:00 Test Item Value Reference Range Interpretation Comments Bili Total (test code = Bili Total) 0.7 0.2-1.3 [facility]2014-04-27 10:10:00 Test Item Value Reference Range Interpretation Comments B/C Ratio (test code = B/C Ratio) 9 -25 [facility]2014-04-27 10:10:00 Test Item Value Reference Range Interpretation Comments Globulin (test code = Globulin) 2.4 2.0-4.0 [facility]2014-04-27 10:10:00 Test Item Value Reference Range Interpretation Comments A/G Ratio (test code = A/G Ratio) 1.1 0.7-1.6 [facility] HospitalQshebokWEEZYCGEER0758-01-57 10:10:00 Test Item Value Reference Range Interpretation Comments Basophils # (test code 0.0 See_Comment [Aut omated message] The = Basophils #) system which generated this result tra nsmitted reference range : <=0.2. The reference r javier was not used to int erpret this result as normal/abnormal . [facility]2014-04-27 10:10:00 Test Item Value Reference Range Interpretation Comments AST (test code = AST) 9 See_Comment [Auto mated message] The system which ge nerated this result transmit max reference range : <=37. The reference range was not used to interpr et this result as luis l/abnormal. [facility]2014-04-27 10:10:00 Test Item Value Reference Range Interpretation Comments Albumin Lvl (test code = Albumin Lvl) 2.7 3.5-5.0 [facility]2014-04-27 10:10:00 Test Item Value Reference Range Interpretation Comments Total Protein (test code = Total 5.1 6.4-8.4 Protein) [facility]2014-04-27 10:10:00 Test Item Value Reference Range Interpretation Comments Alk Phos (test code = Alk Phos) 63 39-136 [facility]2014-04-27 10:10:00 Test Item Value Reference Range Interpretation Comments ALT (test code = ALT) 11 See_Comment [Auto mated message] The system which ge nerated this result transmit max reference range : <=65. The reference range was not used to interpr et this result as luis l/abnormal. [facility]2014-04-27 10:10:00 Test Item Value Reference Range Interpretation Comments Bili Total (test code = Bili Total) 0.7 0.2-1.3 [facility]2014-04-27 10:10:00 Test Item Value Reference Range Interpretation Comments B/C Ratio (test code = B/C Ratio) 9 6-25 [facility]2014-04-27 10:10:00 Test Item Value Reference Range Interpretation Comments Globulin (test code = Globulin) 2.4 2.0-4.0 [facility]2014-04-27 10:10:00 Test Item Value Reference Range Interpretation Comments A/G Ratio (test code = A/G Ratio) 1.1 0.7-1.6 [facility] HospitalXjsmkgmCPIESQZQRU8634-25-82 10:10:00 Test Item Value Reference Range Interpretation Comments Basophils # (test code 0.0 See_Comment [Aut omated message] The = Basophils #) system which generated this result tra nsmitted reference range : <=0.2. The reference r javier was not used to int erpret this result as normal/abnormal . [facility]2014-04-23 10:00:00 Test Item Value Reference Range Interpretation Comments AST (test code = AST) 10 <=37 [facility]2014-04-23 10:00:00 Test Item Value Reference Range Interpretation Comments ALT (test code = ALT) 10 <=65 [facility]2014-04-23 10:00:00 Test Item Value Reference Range Interpretation Comments Albumin Lvl (test code = Albumin Lvl) 2.6 3.5-5.0 [facility]2014-04-23 10:00:00 Test Item Value Reference Range Interpretation Comments Alk Phos (test code = Alk Phos) 58 39-136 [facility]2014-04-23 10:00:00 Test Item Value Reference Range Interpretation Comments Bili Total (test code = Bili Total) 0.5 0.2-1.3 [facility]2014-04-23 10:00:00 Test Item Value Reference Range Interpretation Comments Total Protein (test code = Total 4.8 6.4-8.4 Protein) [facility]2014-04-23 10:00:00 Test Item Value Reference Range Interpretation Comments A/G Ratio (test code = A/G Ratio) 1.2 0.7-1.6 [facility]2014-04-23 10:00:00 Test Item Value Reference Range Interpretation Comments Globulin (test code = Globulin) 2.2 2.0-4.0 [facility]2014-04-23 10:00:00 Test Item Value Reference Range Interpretation Comments B/C Ratio (test code = B/C Ratio) 7 6-25 [facility]2014-04-23 10:00:00 Test Item Value Reference Range Interpretation Comments Phosphorus (test code = Phosphorus) 3.8 2.5-4.5 [facility]2014-04-23 10:00:00 Test Item Value Reference Range Interpretation Comments Magnesium Lvl (test code = Magnesium 1.5 1.8-2.4 Lvl) [facility]2014-04-23 10:00:00 Test Item Value Reference Range Interpretation Comments AST (test code = AST) 10 See_Comment [Auto mated message] The system which ge nerated this result transmit max reference range : <=37. The reference range was not used to interpr et this result as luis l/abnormal. [facility]2014-04-23 10:00:00 Test Item Value Reference Range Interpretation Comments ALT (test code = ALT) 10 See_Comment [Auto mated message] The system which ge nerated this result transmit max reference range : <=65. The reference range was not used to interpr et this result as luis l/abnormal. [facility]2014-04-23 10:00:00 Test Item Value Reference Range Interpretation Comments Albumin Lvl (test code = Albumin Lvl) 2.6 3.5-5.0 [facility]2014-04-23 10:00:00 Test Item Value Reference Range Interpretation Comments Alk Phos (test code = Alk Phos) 58 39-136 [facility]2014-04-23 10:00:00 Test Item Value Reference Range Interpretation Comments Bili Total (test code = Bili Total) 0.5 0.2-1.3 [facility]2014-04-23 10:00:00 Test Item Value Reference Range Interpretation Comments Total Protein (test code = Total 4.8 6.4-8.4 Protein) [facility]2014-04-23 10:00:00 Test Item Value Reference Range Interpretation Comments A/G Ratio (test code = A/G Ratio) 1.2 0.7-1.6 [facility]2014-04-23 10:00:00 Test Item Value Reference Range Interpretation Comments Globulin (test code = Globulin) 2.2 2.0-4.0 [facility]2014-04-23 10:00:00 Test Item Value Reference Range Interpretation Comments B/C Ratio (test code = B/C Ratio) 7 6-25 [facility]2014-04-23 10:00:00 Test Item Value Reference Range Interpretation Comments Phosphorus (test code = Phosphorus) 3.8 2.5-4.5 [facility]2014-04-23 10:00:00 Test Item Value Reference Range Interpretation Comments Magnesium Lvl (test code = Magnesium 1.5 1.8-2.4 Lvl) [facility]2014-04-23 10:00:00 Test Item Value Reference Range Interpretation Comments AST (test code = AST) 10 See_Comment [Auto mated message] The system which ge nerated this result transmit max reference range : <=37. The reference range was not used to interpr et this result as luis l/abnormal. [facility]2014-04-23 10:00:00 Test Item Value Reference Range Interpretation Comments ALT (test code = ALT) 10 See_Comment [Auto mated message] The system which ge nerated this result transmit max reference range : <=65. The reference range was not used to interpr et this result as luis l/abnormal. [facility]2014-04-23 10:00:00 Test Item Value Reference Range Interpretation Comments Albumin Lvl (test code = Albumin Lvl) 2.6 3.5-5.0 [facility]2014-04-23 10:00:00 Test Item Value Reference Range Interpretation Comments Alk Phos (test code = Alk Phos) 58 39-136 [facility]2014-04-23 10:00:00 Test Item Value Reference Range Interpretation Comments Bili Total (test code = Bili Total) 0.5 0.2-1.3 [facility]2014-04-23 10:00:00 Test Item Value Reference Range Interpretation Comments Total Protein (test code = Total 4.8 6.4-8.4 Protein) [facility]2014-04-23 10:00:00 Test Item Value Reference Range Interpretation Comments A/G Ratio (test code = A/G Ratio) 1.2 0.7-1.6 [facility]2014-04-23 10:00:00 Test Item Value Reference Range Interpretation Comments Globulin (test code = Globulin) 2.2 2.0-4.0 [facility]2014-04-23 10:00:00 Test Item Value Reference Range Interpretation Comments B/C Ratio (test code = B/C Ratio) 7 6-25 [facility]2014-04-23 10:00:00 Test Item Value Reference Range Interpretation Comments Phosphorus (test code = Phosphorus) 3.8 2.5-4.5 [facility]2014-04-23 10:00:00 Test Item Value Reference Range Interpretation Comments Magnesium Lvl (test code = Magnesium 1.5 1.8-2.4 Lvl) [id number] 09:30:00 Test Item Value Reference Range Interpretation Comments Elliptocyte (test code = Slight *ABN*(09/14/13 Elliptocyte) 4:30 AM) [facility] HospitalXzsmmdxUBRASVVHXX1635-09-56 09:30:00 Test Item Value Reference Range Interpretation Comments Hypochrom (test code = Slight (09/14/13 4:30 Hypochrom) AM) [facility] HospitalDtwwsieTEHRCQHMER2649-09-91 09:30:00 Test Item Value Reference Range Interpretation Comments Plt Morph (test code = Normal (09/14/13 4:30 Plt Morph) AM) [facility] HospitalIocxomrMDHKKAFDON1626-26-81 09:30:00 Test Item Value Reference Range Interpretation Comments Elliptocyte (test code = Slight *ABN*(09/14/13 Elliptocyte) 4:30 AM) [facility] HospitalWkeglwyBHJIUAOWDV2350-80-62 09:30:00 Test Item Value Reference Range Interpretation Comments Hypochrom (test code = Slight (09/14/13 4:30 Hypochrom) AM) [facility] H[id number] 09:30:00 Test Item Value Reference Range Interpretation Comments Plt Morph (test code = Normal (09/14/13 4:30 Plt Morph) AM) [facility] H[id number] 09:30:00 Test Item Value Reference Range Interpretation Comments Elliptocyte (test code = Slight *ABN*(09/14/13 Elliptocyte) 4:30 AM) [facility] HospitalKldjedrHYZIPXHYUL7717-30-26 09:30:00 Test Item Value Reference Range Interpretation Comments Hypochrom (test code = Slight (09/14/13 4:30 Hypochrom) AM) [facility] H[id number] 09:30:00 Test Item Value Reference Range Interpretation Comments Plt Morph (test code = Normal (09/14/13 4:30 Plt Morph) AM) [facility] [id number] 00:30:00 Test Item Value Reference Range Interpretation Comments ABO/Rh (test code = ABO/Rh) [facility]G [facility] [id number] 00:30:00 Test Item Value Reference Range Interpretation Comments Antibody Scrn (test Negative (09/13/13 7:30 code = Antibody Scrn) PM) [facility] [id number] 00:30:00 Test Item Value Reference Range Interpretation Comments ABO/Rh (test code = ABO/Rh) B NEG [facility] [id number] 00:30:00 Test Item Value Reference Range Interpretation Comments Antibody Scrn (test Negative (09/13/13 7:30 code = Antibody Scrn) PM) [facility] [id number] 00:30:00 Test Item Value Reference Range Interpretation Comments ABO/Rh (test code = ABO/Rh) B NEG [facility] [id number] 00:30:00 Test Item Value Reference Range Interpretation Comments Antibody Scrn (test Negative (09/13/13 7:30 code = Antibody Scrn) PM) [facility] AND [id number] 20:40:40 Test Item Value Reference Range Interpretation Comments UA Urobilinogen (test code = UA <=1.0 mg/dL 0.1-1.0 Urobilinogen) [facility] AND [id number] 20:40:40 Test Item Value Reference Range Interpretation Comments UA Ketones (test code = UA Ketones) TR [facility] AND [id number] 20:40:40 Test Item Value Reference Range Interpretation Comments UA Bacteria (test code = UA Occasional /HPF Bacteria) [facility] AND [id number] 20:40:40 Test Item Value Reference Range Interpretation Comments UA Mucus (test code = UA Mucus) Many /LPF [facility] AND [id number] 20:40:40 Test Item Value Reference Range Interpretation Comments UA RBC (test code = UA RBC) 7 <=2 [facility] AND [id number] 20:40:40 Test Item Value Reference Range Interpretation Comments UA WBC (test code = UA WBC) 8 <=5 [facility] AND [id number] 20:40:40 Test Item Value Reference Range Interpretation Comments UA Glucose (test code = UA Negative mg/dL Glucose) [facility] AND [id number] 20:40:40 Test Item Value Reference Range Interpretation Comments UA Bili (test code = Negative *NA*(09/13/13 UA Bili) 3:40 PM) [facility] AND [id number] 20:40:40 Test Item Value Reference Range Interpretation Comments UA pH (test code = UA pH) 6.0 5.0-8.0 [facility] AND [id number] 20:40:40 Test Item Value Reference Range Interpretation Comments UA Leuk Est (test code Small *ABN*(09/13/13 = UA Leuk Est) 3:40 PM) [facility] AND [id number] 20:40:40 Test Item Value Reference Range Interpretation Comments UA Sq Epi (test code = UA Sq Moderate /LPF Epi) [facility] AND [id number] 20:40:40 Test Item Value Reference Range Interpretation Comments UA Protein (test code = UA Protein) 30 mg/dL [facility] AND [id number] 20:40:40 Test Item Value Reference Range Interpretation Comments UA Blood (test code = Negative (09/13/13 3:40 UA Blood) PM) [facility] AND [id number] 20:40:40 Test Item Value Reference Range Interpretation Comments UA Nitrite (test code Negative (09/13/13 3:40 = UA Nitrite) PM) [facility] AND [id number] 20:40:40 Test Item Value Reference Range Interpretation Comments UA Color (test code = Yellow *NA*(09/13/13 UA Color) 3:40 PM) [facility] AND [id number] 20:40:40 Test Item Value Reference Range Interpretation Comments UA Spec Grav (test code = UA Spec Grav) 1.019 [facility] AND [id number] 20:40:40 Test Item Value Reference Range Interpretation Comments UA Turbidity (test code Slight *ABN*(09/13/13 = UA Turbidity) 3:40 PM) [facility] AND [id number] 20:40:40 Test Item Value Reference Range Interpretation Comments UA Urobilinogen (test code = UA <=1.0 mg/dL 0.1-1.0 Urobilinogen) [facility] AND [id number] 20:40:40 Test Item Value Reference Range Interpretation Comments UA Ketones (test code = UA Ketones) TR [facility] AND [id number] 20:40:40 Test Item Value Reference Range Interpretation Comments UA Bacteria (test code = UA Occasional /HPF Bacteria) [facility] AND [id number] 20:40:40 Test Item Value Reference Range Interpretation Comments UA Mucus (test code = UA Mucus) Many /LPF [facility] AND [id number] 20:40:40 Test Item Value Reference Range Interpretation Comments UA RBC (test code = 7 See_Comment [Automa max message] The UA RBC) system which ge nerated this result transmit max reference range : <=2. The reference range was not used to interpr et this result as luis l/abnormal. [facility] AND [id number] 20:40:40 Test Item Value Reference Range Interpretation Comments UA WBC (test code = 8 See_Comment [Automa max message] The UA WBC) system which ge nerated this result transmit max reference range : <=5. The reference range was not used to interpr et this result as luis l/abnormal. [facility] AND [id number] 20:40:40 Test Item Value Reference Range Interpretation Comments UA Glucose (test code = UA Negative mg/dL Glucose) [facility] AND [id number] 20:40:40 Test Item Value Reference Range Interpretation Comments UA Bili (test code = Negative *NA*(09/13/13 UA Bili) 3:40 PM) [facility] AND [id number] 20:40:40 Test Item Value Reference Range Interpretation Comments UA pH (test code = UA pH) 6.0 5.0-8.0 [facility] AND [id number] 20:40:40 Test Item Value Reference Range Interpretation Comments UA Leuk Est (test code Small *ABN*(09/13/13 = UA Leuk Est) 3:40 PM) [facility] AND [id number] 20:40:40 Test Item Value Reference Range Interpretation Comments UA Sq Epi (test code = UA Sq Moderate /LPF Epi) [facility] AND [id number] 20:40:40 Test Item Value Reference Range Interpretation Comments UA Protein (test code = UA Protein) 30 mg/dL [facility] AND [id number] 20:40:40 Test Item Value Reference Range Interpretation Comments UA Blood (test code = Negative (09/13/13 3:40 UA Blood) PM) [facility] AND [id number] 20:40:40 Test Item Value Reference Range Interpretation Comments UA Nitrite (test code Negative (09/13/13 3:40 = UA Nitrite) PM) [facility] AND [id number] 20:40:40 Test Item Value Reference Range Interpretation Comments UA Color (test code = Yellow *NA*(09/13/13 UA Color) 3:40 PM) [facility] AND [id number] 20:40:40 Test Item Value Reference Range Interpretation Comments UA Spec Grav (test code = UA Spec Grav) 1.019 [facility] AND [id number] 20:40:40 Test Item Value Reference Range Interpretation Comments UA Turbidity (test code Slight *ABN*(09/13/13 = UA Turbidity) 3:40 PM) [facility] AND [id number] 20:40:40 Test Item Value Reference Range Interpretation Comments UA Urobilinogen (test code = UA <=1.0 mg/dL 0.1-1.0 Urobilinogen) [facility] AND [id number] 20:40:40 Test Item Value Reference Range Interpretation Comments UA Ketones (test code = UA Ketones) TR [facility] AND [id number] 20:40:40 Test Item Value Reference Range Interpretation Comments UA Bacteria (test code = UA Occasional /HPF Bacteria) [facility] AND [id number] 20:40:40 Test Item Value Reference Range Interpretation Comments UA Mucus (test code = UA Mucus) Many /LPF [facility] AND [id number] 20:40:40 Test Item Value Reference Range Interpretation Comments UA RBC (test code = 7 See_Comment [Automa max message] The UA RBC) system which ge nerated this result transmit max reference range : <=2. The reference range was not used to interpr et this result as luis l/abnormal. [facility] AND [id number] 20:40:40 Test Item Value Reference Range Interpretation Comments UA WBC (test code = 8 See_Comment [Automa max message] The UA WBC) system which ge nerated this result transmit max reference range : <=5. The reference range was not used to interpr et this result as luis l/abnormal. [facility] AND [id number] 20:40:40 Test Item Value Reference Range Interpretation Comments UA Glucose (test code = UA Negative mg/dL Glucose) [facility] AND [id number] 20:40:40 Test Item Value Reference Range Interpretation Comments UA Bili (test code = Negative *NA*(09/13/13 UA Bili) 3:40 PM) [facility] AND [id number] 20:40:40 Test Item Value Reference Range Interpretation Comments UA pH (test code = UA pH) 6.0 5.0-8.0 [facility] AND [id number] 20:40:40 Test Item Value Reference Range Interpretation Comments UA Leuk Est (test code Small *ABN*(09/13/13 = UA Leuk Est) 3:40 PM) [facility] [id number] 20:40:40 Test Item Value Reference Range Interpretation Comments UA Sq Epi (test code = UA Sq Moderate /LPF Epi) [facility] [id number] 20:40:40 Test Item Value Reference Range Interpretation Comments UA Protein (test code = UA Protein) 30 mg/dL [facility] [id number] 20:40:40 Test Item Value Reference Range Interpretation Comments UA Blood (test code = Negative (09/13/13 3:40 UA Blood) PM) [facility] [id number] 20:40:40 Test Item Value Reference Range Interpretation Comments UA Nitrite (test code Negative (09/13/13 3:40 = UA Nitrite) PM) [facility] [id number] 20:40:40 Test Item Value Reference Range Interpretation Comments UA Color (test code = Yellow *NA*(09/13/13 UA Color) 3:40 PM) [facility] [id number] 20:40:40 Test Item Value Reference Range Interpretation Comments UA Spec Grav (test code = UA Spec Grav) 1.019 [facility] [id number] 20:40:40 Test Item Value Reference Range Interpretation Comments UA Turbidity (test code Slight *ABN*(09/13/13 = UA Turbidity) 3:40 PM) [id number] 20:40:18 Test Item Value Reference Range Interpretation Comments CDC HIV 4th GEN (test Negative (09/13/13 3:40 code = CDC HIV 4th PM) GEN) [id number] 20:40:18 Test Item Value Reference Range Interpretation Comments CDC HIV 4th GEN (test Negative (09/13/13 3:40 code = CDC HIV 4th PM) GEN) [facility] [id number] 20:40:18 Test Item Value Reference Range Interpretation Comments CDC HIV 4th GEN (test Negative (09/13/13 3:40 code = CDC HIV 4th PM) GEN) [facility] [id number] 20:40:00 Test Item Value Reference Range Interpretation Comments Lipase Lvl (test code = Lipase Lvl) 123 73-393 [facility]2014-04-21 20:40:00 Test Item Value Reference Range Interpretation Comments A/G Ratio (test code = A/G Ratio) 1.2 0.7-1.6 [facility]2014-04-21 20:40:00 Test Item Value Reference Range Interpretation Comments Globulin (test code = Globulin) 2.5 2.0-4.0 [facility]2014-04-21 20:40:00 Test Item Value Reference Range Interpretation Comments B/C Ratio (test code = B/C Ratio) 9 6-25 [facility]2014-04-21 20:40:00 Test Item Value Reference Range Interpretation Comments AST (test code = AST) 10 <=37 [facility]2014-04-21 20:40:00 Test Item Value Reference Range Interpretation Comments Total Protein (test code = Total 5.6 6.4-8.4 Protein) [facility]2014-04-21 20:40:00 Test Item Value Reference Range Interpretation Comments ALT (test code = ALT) 10 <=65 [facility]2014-04-21 20:40:00 Test Item Value Reference Range Interpretation Comments Albumin Lvl (test code = Albumin Lvl) 3.1 3.5-5.0 [facility]2014-04-21 20:40:00 Test Item Value Reference Range Interpretation Comments Alk Phos (test code = Alk Phos) 66 39-136 [facility]2014-04-21 20:40:00 Test Item Value Reference Range Interpretation Comments Bili Total (test code = Bili Total) 0.4 0.2-1.3 [facility] H[id number] 20:40:00 Test Item Value Reference Range Interpretation Comments PTT (test code = PTT) 34.7 s 22.9-35.8 [facility] Hos[id number] 20:40:00 Test Item Value Reference Range Interpretation Comments PT (test code = PT) 12.8 s 12.0-14.7 [facility] H[id number] 20:40:00 Test Item Value Reference Range Interpretation Comments INR (test code = INR) 0.97 0.85-1.17 [facility]2014-04-21 20:40:00 Test Item Value Reference Range Interpretation Comments Lipase Lvl (test code = Lipase Lvl) 123 73-393 [facility]2014-04-21 20:40:00 Test Item Value Reference Range Interpretation Comments A/G Ratio (test code = A/G Ratio) 1.2 0.7-1.6 [facility]2014-04-21 20:40:00 Test Item Value Reference Range Interpretation Comments Globulin (test code = Globulin) 2.5 2.0-4.0 [facility]2014-04-21 20:40:00 Test Item Value Reference Range Interpretation Comments B/C Ratio (test code = B/C Ratio) 9 6-25 [facility]2014-04-21 20:40:00 Test Item Value Reference Range Interpretation Comments AST (test code = AST) 10 See_Comment [Auto mated message] The system which ge nerated this result transmit max reference range : <=37. The reference range was not used to interpr et this result as luis l/abnormal. [facility]2014-04-21 20:40:00 Test Item Value Reference Range Interpretation Comments Total Protein (test code = Total 5.6 6.4-8.4 Protein) [facility]2014-04-21 20:40:00 Test Item Value Reference Range Interpretation Comments ALT (test code = ALT) 10 See_Comment [Auto mated message] The system which ge nerated this result transmit max reference range : <=65. The reference range was not used to interpr et this result as luis l/abnormal. [facility]2014-04-21 20:40:00 Test Item Value Reference Range Interpretation Comments Albumin Lvl (test code = Albumin Lvl) 3.1 3.5-5.0 [facility]2014-04-21 20:40:00 Test Item Value Reference Range Interpretation Comments Alk Phos (test code = Alk Phos) 66 39-136 [facility]2014-04-21 20:40:00 Test Item Value Reference Range Interpretation Comments Bili Total (test code = Bili Total) 0.4 0.2-1.3 [facility] H[id number] 20:40:00 Test Item Value Reference Range Interpretation Comments PTT (test code = PTT) 34.7 s 22.9-35.8 [facility] Hos[id number] 20:40:00 Test Item Value Reference Range Interpretation Comments PT (test code = PT) 12.8 s 12.0-14.7 [facility] H[id number] 20:40:00 Test Item Value Reference Range Interpretation Comments INR (test code = INR) 0.97 0.85-1.17 [facility]2014-04-21 20:40:00 Test Item Value Reference Range Interpretation Comments Lipase Lvl (test code = Lipase Lvl) 123 73-393 [facility]2014-04-21 20:40:00 Test Item Value Reference Range Interpretation Comments A/G Ratio (test code = A/G Ratio) 1.2 0.7-1.6 [facility]2014-04-21 20:40:00 Test Item Value Reference Range Interpretation Comments Globulin (test code = Globulin) 2.5 2.0-4.0 [facility]2014-04-21 20:40:00 Test Item Value Reference Range Interpretation Comments B/C Ratio (test code = B/C Ratio) 9 6-25 [facility]2014-04-21 20:40:00 Test Item Value Reference Range Interpretation Comments AST (test code = AST) 10 See_Comment [Auto mated message] The system which ge nerated this result transmit max reference range : <=37. The reference range was not used to interpr et this result as luis l/abnormal. [facility]2014-04-21 20:40:00 Test Item Value Reference Range Interpretation Comments Total Protein (test code = Total 5.6 6.4-8.4 Protein) [facility]2014-04-21 20:40:00 Test Item Value Reference Range Interpretation Comments ALT (test code = ALT) 10 See_Comment [Auto mated message] The system which ge nerated this result transmit max reference range : <=65. The reference range was not used to interpr et this result as luis l/abnormal. [facility]2014-04-21 20:40:00 Test Item Value Reference Range Interpretation Comments Albumin Lvl (test code = Albumin Lvl) 3.1 3.5-5.0 [facility] [id number] 20:40:00 Test Item Value Reference Range Interpretation Comments Alk Phos (test code = Alk Phos) 66 39-136 [facility] [id number] 20:40:00 Test Item Value Reference Range Interpretation Comments Bili Total (test code = Bili Total) 0.4 0.2-1.3 [facility] Hospit[id number] 20:40:00 Test Item Value Reference Range Interpretation Comments PTT (test code = PTT) 34.7 s 22.9-35.8 [facility] Hos[id number] 20:40:00 Test Item Value Reference Range Interpretation Comments PT (test code = PT) 12.8 s 12.0-14.7 [facility] HospitalEhczthsGQYPDMODZC6475-12-76 20:40:00 Test Item Value Reference Range Interpretation Comments INR (test code = INR) 0.97 0.85-1.17 [facility] AND [id number] 19:20:00 Test Item Value Reference Range Interpretation Comments Occult Bld Stl (test Negative (09/13/13 2:20 code = Occult Bld Stl) PM) [facility] AND [id number] 19:20:00 Test Item Value Reference Range Interpretation Comments Occult Bld Stl (test Negative (09/13/13 2:20 code = Occult Bld Stl) PM) [facility] AND [id number] 19:20:00 Test Item Value Reference Range Interpretation Comments Occult Bld Stl (test Negative (09/13/13 2:20 code = Occult Bld Stl) PM) [facility] HospitalMybeznlWHFNITZGFK2062-11-69 09:50:00 Test Item Value Reference Range Interpretation Comments Eosinophils # (test code = Eosinophils 0.1 <=0.5 N #) [facility] HospitalZtsjnexEONAFNOMQV9202-19-04 09:50:00 Test Item Value Reference Range Interpretation Comments Segs-Bands # (test code = Segs-Bands #) 3.8 1.5-8.1 N [facility] HospitalIhockjkUFLFCQJFGI5960-94-11 09:50:00 Test Item Value Reference Range Interpretation Comments Lymphocytes # (test code = Lymphocytes 1.3 1.0-5.5 N #) [facility] HospitalPfliqtnFAVNHQBGJO5197-86-85 09:50:00 Test Item Value Reference Range Interpretation Comments Monocytes # (test code = Monocytes #) 0.5 <=0.8 N [facility] HospitalWfhghcgLGEUUHNXXV7509-07-35 09:50:00 Test Item Value Reference Range Interpretation Comments Segs (test code = Segs) 66.3 45.0-75.0 N [facility] HospitalKpbxhpgSHCRZRXQHB4251-73-27 09:50:00 Test Item Value Reference Range Interpretation Comments Monocytes (test code = Monocytes) 9.5 2.0-12.0 N [facility] HospitalBoujhgdTEZFEZLMQW7843-90-58 09:50:00 Test Item Value Reference Range Interpretation Comments Lymphocytes (test code = Lymphocytes) 22.1 20.0-40.0 N [facility] HospitalBiztfpcWCGKUUPJFF2713-01-23 09:50:00 Test Item Value Reference Range Interpretation Comments Basophils (test code = Basophils) 0.2 <=1.0 N [facility] HospitalYlvzkhkITJJVFOTWE2183-31-83 09:50:00 Test Item Value Reference Range Interpretation Comments Eosinophils (test code = Eosinophils) 1.9 <=4.0 N [facility] HospitalQcoezgfKIICEHWNOB5233-17-37 09:50:00 Test Item Value Reference Range Interpretation Comments MCV (test code = MCV) 88.9 81.0-99.0 N [facility] HospitalHqmbgvgLOSOITTEOI6781-64-80 09:50:00 Test Item Value Reference Range Interpretation Comments RDW (test code = RDW) 15.3 11.5-14.5 H [facility] HospitalWxpilodVIQZJHOGZO3626-74-72 09:50:00 Test Item Value Reference Range Interpretation Comments MCHC (test code = MCHC) 34.1 32.0-36.0 N [facility] HospitalWkjkomdDLVBTZPVNY8399-01-77 09:50:00 Test Item Value Reference Range Interpretation Comments Platelet (test code = Platelet) 161 133-450 N [facility] HospitalYaihyoxCIDKNJNESY0375-32-24 09:50:00 Test Item Value Reference Range Interpretation Comments MPV (test code = MPV) 7.9 7.4-10.4 N [facility] HospitalEqmyavxVARRAOUCID4818-60-28 09:50:00 Test Item Value Reference Range Interpretation Comments MCH (test code = MCH) 30.3 pg 27.0-31.0 N [facility] HospitalUemwzgsDIALLMVCBX6646-58-43 09:50:00 Test Item Value Reference Range Interpretation Comments Hct (test code = Hct) 30.0 36.0-48.0 L [facility] HospitalCquclxiGQXGMYJVVU9825-71-03 09:50:00 Test Item Value Reference Range Interpretation Comments WBC (test code = WBC) 5.8 3.7-10.4 N [facility] HospitalCdtujjrBQTVCRGAJD0390-04-46 09:50:00 Test Item Value Reference Range Interpretation Comments Hgb (test code = Hgb) 10.2 12.0-16.0 L [facility] HospitalBjudlbuZFFPDJJQVZ2740-63-38 09:50:00 Test Item Value Reference Range Interpretation Comments RBC (test code = RBC) 3.38 4.20-5.40 L [facility] HospitalBtpxltcLMRPPVRWQM8999-76-52 09:50:00 Test Item Value Reference Range Interpretation Comments Eosinophils # (test code 0.1 See_Comment N [A utomated message] The = Eosinophils #) system whic h generated this result tra nsmitted reference range : <=0.5. The reference r javier was not used to int erpret this result as normal/abnormal . [facility] HospitalSjnpcvtQFCJFXGRNX2531-93-75 09:50:00 Test Item Value Reference Range Interpretation Comments Segs-Bands # (test code = Segs-Bands #) 3.8 1.5-8.1 N [facility] HospitalSrgrlasGYMAODOMRP0637-83-56 09:50:00 Test Item Value Reference Range Interpretation Comments Lymphocytes # (test code = Lymphocytes 1.3 1.0-5.5 N #) [facility] HospitalRzuhigfBALQGNTWTL1717-87-45 09:50:00 Test Item Value Reference Range Interpretation Comments Monocytes # (test code 0.5 See_Comment N [Aut omated message] The = Monocytes #) system which generated this result tra nsmitted reference range : <=0.8. The reference r javier was not used to int erpret this result as normal/abnormal . [facility]JefsbwcEPOTZORZEL3726-96-30 09:50:00 Test Item Value Reference Range Interpretation Comments Segs (test code = Segs) 66.3 45.0-75.0 N [facility] HospitalKgbvahqHJVEYQDXWS3888-56-35 09:50:00 Test Item Value Reference Range Interpretation Comments Monocytes (test code = Monocytes) 9.5 2.0-12.0 N [facility] HospitalOfdncsgGNHUTZRXCW7519-84-93 09:50:00 Test Item Value Reference Range Interpretation Comments Lymphocytes (test code = Lymphocytes) 22.1 20.0-40.0 N [facility] HospitalNcektwtVHBAZKBYQF5325-47-63 09:50:00 Test Item Value Reference Range Interpretation Comments Basophils (test code = 0.2 See_Comment N [Aut omated message] The Basophils) system which ge nerated this result tra nsmitted reference range : <=1.0. The reference r javier was not used to int erpret this result as normal/abnormal . [facility] HospitalZosauqmAEDYFWUYNX8378-50-11 09:50:00 Test Item Value Reference Range Interpretation Comments Eosinophils (test code = 1.9 See_Comment N [A utomated message] The Eosinophils) system which ge nerated this result tra nsmitted reference range : <=4.0. The reference r javier was not used to int erpret this result as normal/abnormal . [facility] HospitalJtvqvyzQUSJRNYYOS8783-28-09 09:50:00 Test Item Value Reference Range Interpretation Comments MCV (test code = MCV) 88.9 81.0-99.0 N [facility] HospitalHxvyhuwUTKAYUKKFF6505-87-56 09:50:00 Test Item Value Reference Range Interpretation Comments RDW (test code = RDW) 15.3 11.5-14.5 H [facility] HospitalJbwxrclRCNVUTOFKN5141-92-11 09:50:00 Test Item Value Reference Range Interpretation Comments MCHC (test code = MCHC) 34.1 32.0-36.0 N [facility] HospitalTxsrjkcUMGXEXPVPF5854-65-94 09:50:00 Test Item Value Reference Range Interpretation Comments Platelet (test code = Platelet) 161 133-450 N [facility] HospitalWtewhmrXMRZZMHPGH4785-97-48 09:50:00 Test Item Value Reference Range Interpretation Comments MPV (test code = MPV) 7.9 7.4-10.4 N [facility] HospitalXhrabtdKXGHGXSCTN0372-65-68 09:50:00 Test Item Value Reference Range Interpretation Comments MCH (test code = MCH) 30.3 pg 27.0-31.0 N [facility] HospitalPvknfhxIKYFWAMYNS6292-37-15 09:50:00 Test Item Value Reference Range Interpretation Comments Hct (test code = Hct) 30.0 36.0-48.0 L [facility] HospitalTbpotatAGKAEVKVHO6043-31-18 09:50:00 Test Item Value Reference Range Interpretation Comments WBC (test code = WBC) 5.8 3.7-10.4 N [facility] HospitalCzjkcdiGMBBYTLVJY0386-36-91 09:50:00 Test Item Value Reference Range Interpretation Comments Hgb (test code = Hgb) 10.2 12.0-16.0 L [facility] HospitalSlbuokcSBYPGRMAEG5491-58-80 09:50:00 Test Item Value Reference Range Interpretation Comments RBC (test code = RBC) 3.38 4.20-5.40 L [facility] HospitalMvqclewPSFPIIHODV0478-66-34 09:50:00 Test Item Value Reference Range Interpretation Comments Eosinophils # (test code 0.1 See_Comment N [A utomated message] The = Eosinophils #) system whic h generated this result tra nsmitted reference range : <=0.5. The reference r javier was not used to int erpret this result as normal/abnormal . [facility] HospitalMvhzcziYWSUYIXYQY4409-92-79 09:50:00 Test Item Value Reference Range Interpretation Comments Segs-Bands # (test code = Segs-Bands #) 3.8 1.5-8.1 N [facility] HospitalVyboejhMRGTXXTHYQ6948-31-33 09:50:00 Test Item Value Reference Range Interpretation Comments Lymphocytes # (test code = Lymphocytes 1.3 1.0-5.5 N #) [facility] HospitalMureiruNFTIWYTKIX9863-22-36 09:50:00 Test Item Value Reference Range Interpretation Comments Monocytes # (test code 0.5 See_Comment N [Aut omated message] The = Monocytes #) system which generated this result tra nsmitted reference range : <=0.8. The reference r javier was not used to int erpret this result as normal/abnormal . [facility] HospitalWtwouywFNUUYVOYDT8685-14-71 09:50:00 Test Item Value Reference Range Interpretation Comments Segs (test code = Segs) 66.3 45.0-75.0 N [facility] HospitalCfrfnxrMYHWBQWKUL0196-06-37 09:50:00 Test Item Value Reference Range Interpretation Comments Monocytes (test code = Monocytes) 9.5 2.0-12.0 N [facility] HospitalEbiioasIHIHZAJNCW6223-13-04 09:50:00 Test Item Value Reference Range Interpretation Comments Lymphocytes (test code = Lymphocytes) 22.1 20.0-40.0 N [facility] HospitalJddwhtjRBUBDIXMLK1901-33-16 09:50:00 Test Item Value Reference Range Interpretation Comments Basophils (test code = 0.2 See_Comment N [Aut omated message] The Basophils) system which ge nerated this result tra nsmitted reference range : <=1.0. The reference r javier was not used to int erpret this result as normal/abnormal . [facility] HospitalXkkdjevLGSEZXKIZU8268-01-20 09:50:00 Test Item Value Reference Range Interpretation Comments Eosinophils (test code = 1.9 See_Comment N [A utomated message] The Eosinophils) system which ge nerated this result tra nsmitted reference range : <=4.0. The reference r javier was not used to int erpret this result as normal/abnormal . [facility] HospitalCgvvfvuJYWPDEJIMC1193-37-34 09:50:00 Test Item Value Reference Range Interpretation Comments MCV (test code = MCV) 88.9 81.0-99.0 N [facility] HospitalSzgytfdEMFOAUZMLF3107-72-13 09:50:00 Test Item Value Reference Range Interpretation Comments RDW (test code = RDW) 15.3 11.5-14.5 H [facility] HospitalIkdpziqRCDFEFPXHM2210-38-31 09:50:00 Test Item Value Reference Range Interpretation Comments MCHC (test code = MCHC) 34.1 32.0-36.0 N [facility] HospitalPkhbnimUXXVORZFUX4989-85-32 09:50:00 Test Item Value Reference Range Interpretation Comments Platelet (test code = Platelet) 161 133-450 N [facility] HospitalIuyncldTODGNKUUTA3779-67-12 09:50:00 Test Item Value Reference Range Interpretation Comments MPV (test code = MPV) 7.9 7.4-10.4 N [facility] HospitalRzpteoqXIWWZSDJWC7895-19-81 09:50:00 Test Item Value Reference Range Interpretation Comments MCH (test code = MCH) 30.3 pg 27.0-31.0 N [facility] HospitalOzeviqlOSEWDYJTDK0131-19-16 09:50:00 Test Item Value Reference Range Interpretation Comments Hct (test code = Hct) 30.0 36.0-48.0 L [facility] HospitalGohfogrIFBPYTDGAQ2608-07-02 09:50:00 Test Item Value Reference Range Interpretation Comments WBC (test code = WBC) 5.8 3.7-10.4 N [facility] HospitalFfiosltQNAPJSGKHR1491-01-65 09:50:00 Test Item Value Reference Range Interpretation Comments Hgb (test code = Hgb) 10.2 12.0-16.0 L [facility] HospitalLaiwgagIDHWIMKAKO1182-17-70 09:50:00 Test Item Value Reference Range Interpretation Comments RBC (test code = RBC) 3.38 4.20-5.[address] [facility] RZAMJTH6229-96-19 17:54:00 Test Item Value Reference Range Interpretation Comments RBC product (test code Product available N = RBC product) (12/08/2011 12:54:00) [facility] BANK [id number] 17:54:00 Test Item Value Reference Range Interpretation Comments RBC product (test code Product available N = RBC product) (12/08/2011 12:54:00) [facility] RKLHFUH0971-16-83 17:54:00 Test Item Value Reference Range Interpretation Comments RBC product (test code Product available N = RBC product) (12/08/2011 12:54:00) [facility] [id number] 15:10:00 Test Item Value Reference Range Interpretation Comments Antibody Scrn (test Negative (12/08/2011 N code = Antibody Scrn) 10:10:00) [facility] AZMTHAW8928-50-13 15:10:00 Test Item Value Reference Range Interpretation Comments ABO/Rh (test code = ABO/Rh) B NEG [facility] DELSQRJ8253-47-02 15:10:00 Test Item Value Reference Range Interpretation Comments Antibody Scrn (test Negative (12/08/2011 N code = Antibody Scrn) 10:10:00) [facility] BANK FMVWXMO3069-38-11 15:10:00 Test Item Value Reference Range Interpretation Comments ABO/Rh (test code = ABO/Rh) [facility] QYMUMAD8371-96-81 15:10:00 Test Item Value Reference Range Interpretation Comments Antibody Scrn (test Negative (12/08/2011 N code = Antibody Scrn) 10:10:00) [facility] [employer] LLHYOWB6468-97-09 15:10:00 Test Item Value Reference Range Interpretation Comments ABO/Rh (test code = ABO/Rh) B NEG [facility] HospitalHsuecoxTADAMTITHZ3497-60-91 10:00:00 Test Item Value Reference Range Interpretation Comments Lymphocytes (test code = Lymphocytes) 8.0 20.0-40.0 L [facility] HospitalXpcazhjDPZCQABYJP4787-73-15 10:00:00 Test Item Value Reference Range Interpretation Comments Bands (test code = Bands) 12.0 <=11.0 H [facility] HospitalPxsdjmfYFOGZNMYXJ2756-00-04 10:00:00 Test Item Value Reference Range Interpretation Comments Plt Morph (test code = Normal (12/08/2011 N Plt Morph) 05:00:00) [facility] HospitalRjpgslfIHSMMHKZZJ9493-04-83 10:00:00 Test Item Value Reference Range Interpretation Comments Atypical Lymphs (test code = Atypical 0.0 N Lymphs) [facility] HospitalVhlvrneKQBRBIXGOR5171-51-09 10:00:00 Test Item Value Reference Range Interpretation Comments Monocytes (test code = Monocytes) 4.0 2.0-12.0 N [facility] HospitalQhqjeonCTACAHTHER6757-74-06 10:00:00 Test Item Value Reference Range Interpretation Comments Elliptocyte (test code = Slight A Elliptocyte) *ABN*(12/08/2011 05:00:00) [facility] HospitalPriglcuHDWPORBXIO5385-93-84 10:00:00 Test Item Value Reference Range Interpretation Comments Toxic Gran (test code Slight *ABN*(12/08/2011 A = Toxic Gran) 05:00:00) [facility] HospitalKskipqpDSRZVRMSJS5495-28-72 10:00:00 Test Item Value Reference Range Interpretation Comments Polychrom (test code = Slight (12/08/2011 N Polychrom) 05:00:00) [facility] HospitalSiwdoiqNRDNGOHQTR2346-92-93 10:00:00 Test Item Value Reference Range Interpretation Comments Segs (test code = Segs) 76.0 45.0-75.0 H [facility] HospitalFubyhbyIOGQFIIBTZ0790-08-77 10:00:00 Test Item Value Reference Range Interpretation Comments Segs-Bands # (test code = Segs-Bands #) 7.3 1.5-8.1 N [facility] HospitalZsffohwDNCVZISQUM6001-02-27 10:00:00 Test Item Value Reference Range Interpretation Comments Monocytes # (test code = Monocytes #) 0.3 <=0.8 N [facility] HospitalWmviwlmUKEOYDHHKY2040-78-93 10:00:00 Test Item Value Reference Range Interpretation Comments Lymphocytes # (test code = Lymphocytes 0.7 1.0-5.5 L #) [facility] HospitalMhqrqbmTCSOWXCEHM0700-20-28 10:00:00 Test Item Value Reference Range Interpretation Comments RBC (test code = RBC) 2.91 4.20-5.40 L [facility] HospitalPzoaiukXHHENUYUJE8859-68-25 10:00:00 Test Item Value Reference Range Interpretation Comments WBC (test code = WBC) 8.3 3.7-10.4 N [facility] HospitalJcimuydHORIFNLEPL0876-66-12 10:00:00 Test Item Value Reference Range Interpretation Comments MCH (test code = MCH) 30.3 pg 27.0-31.0 N [facility] HospitalDlzvtbpFEXQMFHOCQ4460-43-54 10:00:00 Test Item Value Reference Range Interpretation Comments MCV (test code = MCV) 89.3 81.0-99.0 N [facility] HospitalCngumwgHTXKBDXCBI4628-40-01 10:00:00 Test Item Value Reference Range Interpretation Comments MCHC (test code = MCHC) 33.9 32.0-36.0 N [facility] HospitalKdfhntcTXGCWMFWTO2898-46-97 10:00:00 Test Item Value Reference Range Interpretation Comments Hct (test code = Hct) 26.0 36.0-48.0 L [facility] HospitalTlbmhdwKEVKBNTRYF0319-12-26 10:00:00 Test Item Value Reference Range Interpretation Comments Hgb (test code = Hgb) 8.8 12.0-16.0 L [facility] HospitalJwagywwQDJUCUDYMF0219-66-12 10:00:00 Test Item Value Reference Range Interpretation Comments Platelet (test code = Platelet) 195 133-450 N [facility] HospitalKrpwpieQSDHLHJGDG7666-01-01 10:00:00 Test Item Value Reference Range Interpretation Comments MPV (test code = MPV) 7.7 7.4-10.4 N [facility] HospitalAdfvqemBWEHGDGTKS4705-38-15 10:00:00 Test Item Value Reference Range Interpretation Comments RDW (test code = RDW) 15.8 11.5-14.5 H [facility] HospitalHwyaqrmAJMVNUYUTY8736-15-19 10:00:00 Test Item Value Reference Range Interpretation Comments Lymphocytes (test code = Lymphocytes) 8.0 20.0-40.0 L [facility] HospitalVmvrbjgQOGFMDYDFD8175-21-79 10:00:00 Test Item Value Reference Range Interpretation Comments Bands (test code = 12.0 See_Comment H [Automat ed message] The Bands) system which ge nerated this result transmit max reference range : <=11.0. The reference r javier was not used to interpr et this result as luis l/abnormal. [facility] HospitalXtamwkfEAYRCWPDOF9458-78-97 10:00:00 Test Item Value Reference Range Interpretation Comments Plt Morph (test code = Normal (12/08/2011 N Plt Morph) 05:00:00) [facility] HospitalDfcuxjlDYBRZMIEAY7200-75-10 10:00:00 Test Item Value Reference Range Interpretation Comments Atypical Lymphs (test code = Atypical 0.0 N Lymphs) [facility] HospitalNtmzzesBEGWNLEMYI7836-67-36 10:00:00 Test Item Value Reference Range Interpretation Comments Monocytes (test code = Monocytes) 4.0 2.0-12.0 N [facility] HospitalItjpgwcHGHPNJEMSW0195-92-98 10:00:00 Test Item Value Reference Range Interpretation Comments Elliptocyte (test code = Slight A Elliptocyte) *ABN*(12/08/2011 05:00:00) [facility] HospitalCafrxczWPQMUSLMZL1312-05-87 10:00:00 Test Item Value Reference Range Interpretation Comments Toxic Gran (test code Slight *ABN*(12/08/2011 A = Toxic Gran) 05:00:00) [facility] HospitalFnczzzsLOUKNGJVUK8365-02-09 10:00:00 Test Item Value Reference Range Interpretation Comments Polychrom (test code = Slight (12/08/2011 N Polychrom) 05:00:00) [facility] HospitalBietkujDGZLZQXXFI9742-83-33 10:00:00 Test Item Value Reference Range Interpretation Comments Segs (test code = Segs) 76.0 45.0-75.0 H [facility] HospitalOhtpdbhTWBAWOWWUI8044-13-75 10:00:00 Test Item Value Reference Range Interpretation Comments Segs-Bands # (test code = Segs-Bands #) 7.3 1.5-8.1 N [facility] HospitalOqylfegNMADLARVFL5049-57-53 10:00:00 Test Item Value Reference Range Interpretation Comments Monocytes # (test code 0.3 See_Comment N [Aut omated message] The = Monocytes #) system which generated this result tra nsmitted reference range : <=0.8. The reference r javier was not used to int erpret this result as normal/abnormal . [facility] HospitalMvfnfdrFDOTMPWGFM5289-09-61 10:00:00 Test Item Value Reference Range Interpretation Comments Lymphocytes # (test code = Lymphocytes 0.7 1.0-5.5 L #) [facility] HospitalDplicwdNAHUWCHYFI0821-75-43 10:00:00 Test Item Value Reference Range Interpretation Comments RBC (test code = RBC) 2.91 4.20-5.40 L [facility] HospitalVvsqgusUBQNDAQPAD1403-87-39 10:00:00 Test Item Value Reference Range Interpretation Comments WBC (test code = WBC) 8.3 3.7-10.4 N [facility] HospitalFohjemjPYOLCDKICK4780-87-43 10:00:00 Test Item Value Reference Range Interpretation Comments MCH (test code = MCH) 30.3 pg 27.0-31.0 N [facility] HospitalWjtdizdQMUELOPHXH9171-81-74 10:00:00 Test Item Value Reference Range Interpretation Comments MCV (test code = MCV) 89.3 81.0-99.0 N [facility] HospitalZpbbpqjQCYRUJRWIV9887-61-76 10:00:00 Test Item Value Reference Range Interpretation Comments MCHC (test code = MCHC) 33.9 32.0-36.0 N [facility] HospitalXgyuiinKDDTKYDZOJ4478-47-52 10:00:00 Test Item Value Reference Range Interpretation Comments Hct (test code = Hct) 26.0 36.0-48.0 L [facility] HospitalRznhqcdOWEVQRCPAO2252-25-14 10:00:00 Test Item Value Reference Range Interpretation Comments Hgb (test code = Hgb) 8.8 12.0-16.0 L [facility] HospitalNrjuqckPLLLJQDQDU8267-75-46 10:00:00 Test Item Value Reference Range Interpretation Comments Platelet (test code = Platelet) 195 133-450 N [facility] HospitalQauevdnLAYNHZVBJZ0921-66-47 10:00:00 Test Item Value Reference Range Interpretation Comments MPV (test code = MPV) 7.7 7.4-10.4 N [facility] HospitalCngjyqdRLZNUDMTLH5964-48-02 10:00:00 Test Item Value Reference Range Interpretation Comments RDW (test code = RDW) 15.8 11.5-14.5 H [facility] HospitalSvtcduiRYUNRUTHPJ3051-65-00 10:00:00 Test Item Value Reference Range Interpretation Comments Lymphocytes (test code = Lymphocytes) 8.0 20.0-40.0 L [facility] HospitalXigzyoyCMGNYDRLUK1547-02-66 10:00:00 Test Item Value Reference Range Interpretation Comments Bands (test code = 12.0 See_Comment H [Automat ed message] The Bands) system which ge nerated this result transmit max reference range : <=11.0. The reference r javier was not used to interpr et this result as luis l/abnormal. [facility] HospitalZbdkbqbYYITKDWAUG7260-46-35 10:00:00 Test Item Value Reference Range Interpretation Comments Plt Morph (test code = Normal (12/08/2011 N Plt Morph) 05:00:00) [facility] HospitalZbclffwPGJHPQDVZI6403-78-43 10:00:00 Test Item Value Reference Range Interpretation Comments Atypical Lymphs (test code = Atypical 0.0 N Lymphs) [facility] HospitalNcbnvhlAMPWPUTZHN4027-39-46 10:00:00 Test Item Value Reference Range Interpretation Comments Monocytes (test code = Monocytes) 4.0 2.0-12.0 N [facility] HospitalKxcdcttZQKJRHKIFG5286-25-25 10:00:00 Test Item Value Reference Range Interpretation Comments Elliptocyte (test code = Slight A Elliptocyte) *ABN*(12/08/2011 05:00:00) [facility] HospitalHcjuqewEXJDFVFQPU8285-92-58 10:00:00 Test Item Value Reference Range Interpretation Comments Toxic Gran (test code Slight *ABN*(12/08/2011 A = Toxic Gran) 05:00:00) [facility] HospitalIvrtjtrZRSWALCHGY6202-44-77 10:00:00 Test Item Value Reference Range Interpretation Comments Polychrom (test code = Slight (12/08/2011 N Polychrom) 05:00:00) [facility] HospitalFtdqvpbUQFTVPVZHZ4387-06-20 10:00:00 Test Item Value Reference Range Interpretation Comments Segs (test code = Segs) 76.0 45.0-75.0 H [facility] HospitalJcerzskJHDPMNBSGM0868-78-46 10:00:00 Test Item Value Reference Range Interpretation Comments Segs-Bands # (test code = Segs-Bands #) 7.3 1.5-8.1 N [facility] HospitalEyvjjljHZTHKMFTHZ0730-14-98 10:00:00 Test Item Value Reference Range Interpretation Comments Monocytes # (test code 0.3 See_Comment N [Aut omated message] The = Monocytes #) system which generated this result tra nsmitted reference range : <=0.8. The reference r javier was not used to int erpret this result as normal/abnormal . [facility] HospitalXlccwdoFPQQEJHROF0053-10-58 10:00:00 Test Item Value Reference Range Interpretation Comments Lymphocytes # (test code = Lymphocytes 0.7 1.0-5.5 L #) [facility] HospitalItjbikrOCQEGICGVW4459-21-80 10:00:00 Test Item Value Reference Range Interpretation Comments RBC (test code = RBC) 2.91 4.20-5.40 L [facility] HospitalOsvfpyvMITOIXRPCB5900-50-38 10:00:00 Test Item Value Reference Range Interpretation Comments WBC (test code = WBC) 8.3 3.7-10.4 N [facility] HospitalMvwzedoFRUMEFIJUX6650-55-56 10:00:00 Test Item Value Reference Range Interpretation Comments MCH (test code = MCH) 30.3 pg 27.0-31.0 N [facility] HospitalZaanzngIXVIVSXZHX1552-05-16 10:00:00 Test Item Value Reference Range Interpretation Comments MCV (test code = MCV) 89.3 81.0-99.0 N [facility] HospitalFphppqoIIKMZYRNFB1324-51-13 10:00:00 Test Item Value Reference Range Interpretation Comments MCHC (test code = MCHC) 33.9 32.0-36.0 N [facility] HospitalYsidikyEHOIGFXLYB0183-19-41 10:00:00 Test Item Value Reference Range Interpretation Comments Hct (test code = Hct) 26.0 36.0-48.0 L [facility] HospitalHsomyyrPXLVLNCCBM3152-90-63 10:00:00 Test Item Value Reference Range Interpretation Comments Hgb (test code = Hgb) 8.8 12.0-16.0 L [facility] HospitalRrzvcwyRVPMQMJQER3876-67-88 10:00:00 Test Item Value Reference Range Interpretation Comments Platelet (test code = Platelet) 195 133-450 N [facility] HospitalAfkukbzDXPHVTPGLK4614-70-31 10:00:00 Test Item Value Reference Range Interpretation Comments MPV (test code = MPV) 7.7 7.4-10.4 N [facility] HospitalJdghynyOAZZSSJMHV0507-60-59 10:00:00 Test Item Value Reference Range Interpretation Comments RDW (test code = RDW) 15.8 11.5-14.5 H [facility]WwkgrivQFASICDLY2415-70-07 14:33:00 Test Item Value Reference Range Interpretation Comments Phosphorus (test code = Phosphorus) 2.2 2.5-4.5 L [facility] HospitalSptiwauUXXCSMEDL8970-10-74 14:33:00 Test Item Value Reference Range Interpretation Comments Potassium Lvl (test code = Potassium 4.0 3.5-5.1 N Lvl) [facility] HospitalExahmlyCZPULUJLE0857-03-89 14:33:00 Test Item Value Reference Range Interpretation Comments Sodium Lvl (test code = Sodium Lvl) 143 135-145 N [facility] HospitalAfadbmrFLQOZOSWY7637-96-26 14:33:00 Test Item Value Reference Range Interpretation Comments Chloride Lvl (test code = Chloride Lvl) 110 95-109 H [facility] HospitalLbezhqdESMPZCHHK7572-10-27 14:33:00 Test Item Value Reference Range Interpretation Comments CO2 (test code = CO2) 22 24-32 L [facility] HospitalAlgwvyxAXTRBVVDY4148-68-57 14:33:00 Test Item Value Reference Range Interpretation Comments Calcium Lvl (test code = Calcium Lvl) 7.6 8.5-10.5 L [facility] HospitalKnmsmnzRQBVQJAMD2439-16-94 14:33:00 Test Item Value Reference Range Interpretation Comments Creatinine Lvl (test code = Creatinine 1.0 0.5-1.4 N Lvl) [facility] HospitalYtjwvooRUIEDZUEF8148-25-01 14:33:00 Test Item Value Reference Range Interpretation Comments BUN (test code = BUN) 16 7-22 N [facility] HospitalVmnntavQIYMBVOCG4318-27-97 14:33:00 Test Item Value Reference Range Interpretation Comments Glucose Lvl (test code = Glucose Lvl) 115 70-99 H [facility] HospitalLgxxsthXUMURXUZV5372-88-47 14:33:00 Test Item Value Reference Range Interpretation Comments AGAP (test code = AGAP) 15.0 10.0-20.0 N [facility] HospitalBdaqxwcONUGILGNK1475-09-51 14:33:00 Test Item Value Reference Range Interpretation Comments Magnesium Lvl (test code = Magnesium 1.3 1.8-2.4 L Lvl) [facility] HospitalBykmuzoJPLUGBCETD2045-28-83 14:33:00 Test Item Value Reference Range Interpretation Comments Tot Cell Ct (test code = Tot Cell Ct) 100 1 [facility] HospitalJlqtdcpJKBJITQVRH9589-82-84 14:33:00 Test Item Value Reference Range Interpretation Comments Plt Morph (test code = Normal (12/07/2011 N Plt Morph) 09:33:00) [facility] HospitalXgnwmorDCELVBWAMC3055-42-79 14:33:00 Test Item Value Reference Range Interpretation Comments Atypical Lymphs (test code = Atypical 0.0 N Lymphs) [facility] HospitalEhnfsxfQGJRTMRNVX1883-14-01 14:33:00 Test Item Value Reference Range Interpretation Comments Metamyelocytes (test code = 1.0 <=1.0 N Metamyelocytes) [facility] HospitalGqhsjqfNVJJFKMNMU7621-85-94 14:33:00 Test Item Value Reference Range Interpretation Comments Monocytes (test code = Monocytes) 8.0 2.0-12.0 N [facility]QuhvhxrUIILWJRJWB1450-24-05 14:33:00 Test Item Value Reference Range Interpretation Comments Lymphocytes (test code = Lymphocytes) 17.0 20.0-40.0 L [facility] HospitalLpdfvhjSABQYBUASS0967-63-10 14:33:00 Test Item Value Reference Range Interpretation Comments Segs (test code = Segs) 34.0 45.0-75.0 L [facility] HospitalDxccivyREZMFAAEYI1328-39-39 14:33:00 Test Item Value Reference Range Interpretation Comments Bands (test code = Bands) 40.0 <=11.0 H [facility] HospitalCqedgbkYKKSTNPJLB1698-89-03 14:33:00 Test Item Value Reference Range Interpretation Comments RBC Morph (test code = Normal (12/07/2011 N RBC Morph) 09:33:00) [facility] HospitalStrznqjWNLFJUFHCA0739-63-99 14:33:00 Test Item Value Reference Range Interpretation Comments Monocytes # (test code = Monocytes #) 0.8 <=0.8 N [facility] HospitalAmholnyNMWKSZBCJO6788-20-13 14:33:00 Test Item Value Reference Range Interpretation Comments Segs-Bands # (test code = Segs-Bands #) 7.2 1.5-8.1 N [facility] HospitalDowbugbFBPYRYNZCZ2916-04-06 14:33:00 Test Item Value Reference Range Interpretation Comments Lymphocytes # (test code = Lymphocytes 1.6 1.0-5.5 N #) [facility] HospitalLxaxcfyTNCDUTXROF1266-50-59 14:33:00 Test Item Value Reference Range Interpretation Comments RDW (test code = RDW) 15.8 11.5-14.5 H [facility] HospitalBkyvptbJOCUPNQAOM6955-26-08 14:33:00 Test Item Value Reference Range Interpretation Comments Hct (test code = Hct) 25.2 36.0-48.0 L [facility] HospitalPetgdahPLZKWBQXKZ8437-67-68 14:33:00 Test Item Value Reference Range Interpretation Comments Hgb (test code = Hgb) 8.3 12.0-16.0 L [facility] HospitalJwyvqnaSWRPLJFTGS1822-62-82 14:33:00 Test Item Value Reference Range Interpretation Comments MCV (test code = MCV) 88.5 81.0-99.0 N [facility] HospitalUzypzigCQASFOQFGK8546-57-50 14:33:00 Test Item Value Reference Range Interpretation Comments MCHC (test code = MCHC) 32.8 32.0-36.0 N [facility] HospitalTmuclazIZSDRSTYUD3065-43-58 14:33:00 Test Item Value Reference Range Interpretation Comments MCH (test code = MCH) 29.0 pg 27.0-31.0 N [facility] HospitalGdobitkXPVAYDNYFV1408-68-42 14:33:00 Test Item Value Reference Range Interpretation Comments Platelet (test code = Platelet) 165 133-450 N [facility] HospitalDpkrbscVUEWKPTHQG9284-49-31 14:33:00 Test Item Value Reference Range Interpretation Comments MPV (test code = MPV) 7.6 7.4-10.4 N [facility] HospitalTjdkkxxWIEUCZTETJ2820-16-53 14:33:00 Test Item Value Reference Range Interpretation Comments RBC (test code = RBC) 2.85 4.20-5.40 L [facility] HospitalVzhzzydWVMNJGUWII3561-94-44 14:33:00 Test Item Value Reference Range Interpretation Comments WBC (test code = WBC) 9.7 3.7-10.4 N [facility]IaqdwmgDDHPRDEBD7306-03-06 14:33:00 Test Item Value Reference Range Interpretation Comments Phosphorus (test code = Phosphorus) 2.2 2.5-4.5 L [facility] HospitalMzhqywbFCNVEQDNB6522-32-99 14:33:00 Test Item Value Reference Range Interpretation Comments Potassium Lvl (test code = Potassium 4.0 3.5-5.1 N Lvl) [facility] HospitalUeinydkKVCGXTHCG0430-58-00 14:33:00 Test Item Value Reference Range Interpretation Comments Sodium Lvl (test code = Sodium Lvl) 143 135-145 N [facility] HospitalQmcowrbSAVXNNOLC4662-12-13 14:33:00 Test Item Value Reference Range Interpretation Comments Chloride Lvl (test code = Chloride Lvl) 110 95-109 H [facility] HospitalWfdjgctCEAPXNBIA3047-55-88 14:33:00 Test Item Value Reference Range Interpretation Comments CO2 (test code = CO2) 22 24-32 L [facility] HospitalIthfmrjRDOBPIDHX8287-57-82 14:33:00 Test Item Value Reference Range Interpretation Comments Calcium Lvl (test code = Calcium Lvl) 7.6 8.5-10.5 L [facility] HospitalMhwwkwwDDBOPTXPE5172-54-43 14:33:00 Test Item Value Reference Range Interpretation Comments Creatinine Lvl (test code = Creatinine 1.0 0.5-1.4 N Lvl) [facility] HospitalEblsxpyIYVZQNMTI5942-98-00 14:33:00 Test Item Value Reference Range Interpretation Comments BUN (test code = BUN) 16 7-22 N [facility] HospitalDljrwmtQMLDQMOGC0284-77-47 14:33:00 Test Item Value Reference Range Interpretation Comments Glucose Lvl (test code = Glucose Lvl) 115 70-99 H [facility] HospitalEvkjehaLBXXUAXFT9298-35-72 14:33:00 Test Item Value Reference Range Interpretation Comments AGAP (test code = AGAP) 15.0 10.0-20.0 N [facility] HospitalQptvchnWOXIJHXRU0994-20-97 14:33:00 Test Item Value Reference Range Interpretation Comments Magnesium Lvl (test code = Magnesium 1.3 1.8-2.4 L Lvl) [facility] HospitalSvvxunsFQAMFXHVJU0584-10-65 14:33:00 Test Item Value Reference Range Interpretation Comments Tot Cell Ct (test code = Tot Cell Ct) 100 1 [facility] HospitalGddfdzsILRYXIOOON6344-32-39 14:33:00 Test Item Value Reference Range Interpretation Comments Plt Morph (test code = Normal (12/07/2011 N Plt Morph) 09:33:00) [facility] HospitalUmdnztgBZQAXDJCMY5403-80-84 14:33:00 Test Item Value Reference Range Interpretation Comments Atypical Lymphs (test code = Atypical 0.0 N Lymphs) [facility] HospitalCdjqszfBBWIPAXEDM0118-52-86 14:33:00 Test Item Value Reference Range Interpretation Comments Metamyelocytes (test code 1.0 See_Comment N [ Automated message] = Metamyelocytes) The system which generated this result transmitted ref erence range: <=1.0. T he reference range was not used to int erpret this result as normal/abnormal . [facility] HospitalCfbfwlpLFCPBPORHW9701-80-68 14:33:00 Test Item Value Reference Range Interpretation Comments Monocytes (test code = Monocytes) 8.0 2.0-12.0 N [facility] HospitalAuwktdpRMTOZVPKNU1326-10-37 14:33:00 Test Item Value Reference Range Interpretation Comments Lymphocytes (test code = Lymphocytes) 17.0 20.0-40.0 L [facility] HospitalUwrxfaeZUSBARABMP8826-37-06 14:33:00 Test Item Value Reference Range Interpretation Comments Segs (test code = Segs) 34.0 45.0-75.0 L [facility] HospitalPxedhscBVYWFCLSPP7352-46-12 14:33:00 Test Item Value Reference Range Interpretation Comments Bands (test code = 40.0 See_Comment H [Automat ed message] The Bands) system which ge nerated this result transmit max reference range : <=11.0. The reference r javier was not used to interpr et this result as luis l/abnormal. [facility] HospitalXuoigxkFQXEJPUYIB5775-82-30 14:33:00 Test Item Value Reference Range Interpretation Comments RBC Morph (test code = Normal (12/07/2011 N RBC Morph) 09:33:00) [facility] HospitalStcyaoqTTZAFTPEWD8254-03-71 14:33:00 Test Item Value Reference Range Interpretation Comments Monocytes # (test code 0.8 See_Comment N [Aut omated message] The = Monocytes #) system which generated this result tra nsmitted reference range : <=0.8. The reference r javier was not used to int erpret this result as normal/abnormal . [facility] HospitalEaifcyjTKRDFSSWQE8094-38-36 14:33:00 Test Item Value Reference Range Interpretation Comments Segs-Bands # (test code = Segs-Bands #) 7.2 1.5-8.1 N [facility] HospitalVjgcfvoOSHSBSKUGD0492-88-14 14:33:00 Test Item Value Reference Range Interpretation Comments Lymphocytes # (test code = Lymphocytes 1.6 1.0-5.5 N #) [facility] HospitalWdvmcaiZQFLXTGADQ9663-34-78 14:33:00 Test Item Value Reference Range Interpretation Comments RDW (test code = RDW) 15.8 11.5-14.5 H [facility] HospitalCjsddebYXDJGPRIIL1874-67-13 14:33:00 Test Item Value Reference Range Interpretation Comments Hct (test code = Hct) 25.2 36.0-48.0 L [facility] HospitalHjihzjbAETPOTUNPJ3634-12-79 14:33:00 Test Item Value Reference Range Interpretation Comments Hgb (test code = Hgb) 8.3 12.0-16.0 L [facility] HospitalUqtdrzeGSSRLQRUSS5132-47-93 14:33:00 Test Item Value Reference Range Interpretation Comments MCV (test code = MCV) 88.5 81.0-99.0 N [facility] HospitalGboqcvnPLRPMSGNCP4333-35-48 14:33:00 Test Item Value Reference Range Interpretation Comments MCHC (test code = MCHC) 32.8 32.0-36.0 N [facility] HospitalYknsyzhYWRULFHNIP5253-41-91 14:33:00 Test Item Value Reference Range Interpretation Comments MCH (test code = MCH) 29.0 pg 27.0-31.0 N [facility] HospitalLomljxqRPNBJLTILK3352-33-21 14:33:00 Test Item Value Reference Range Interpretation Comments Platelet (test code = Platelet) 165 133-450 N [facility] HospitalRagotekFXPOCEWIZV3374-68-09 14:33:00 Test Item Value Reference Range Interpretation Comments MPV (test code = MPV) 7.6 7.4-10.4 N [facility] HospitalOnetjmmBLYSOLWNZR0330-84-20 14:33:00 Test Item Value Reference Range Interpretation Comments RBC (test code = RBC) 2.85 4.20-5.40 L [facility] HospitalGynmcizPGOREHMFRB5027-04-93 14:33:00 Test Item Value Reference Range Interpretation Comments WBC (test code = WBC) 9.7 3.7-10.4 N [facility] HospitalJnxehbjESIHENJPB5329-63-80 14:33:00 Test Item Value Reference Range Interpretation Comments Phosphorus (test code = Phosphorus) 2.2 2.5-4.5 L [facility] HospitalRdjmjqiPUZTIVTMT2508-85-06 14:33:00 Test Item Value Reference Range Interpretation Comments Potassium Lvl (test code = Potassium 4.0 3.5-5.1 N Lvl) [facility] HospitalUltbuzdUVRPWFJBT3017-61-80 14:33:00 Test Item Value Reference Range Interpretation Comments Sodium Lvl (test code = Sodium Lvl) 143 135-145 N [facility] HospitalLgqjxgkBDGEGBWVS6929-86-47 14:33:00 Test Item Value Reference Range Interpretation Comments Chloride Lvl (test code = Chloride Lvl) 110 95-109 H [facility] HospitalHoojhtuTQJYWHRWA5565-56-50 14:33:00 Test Item Value Reference Range Interpretation Comments CO2 (test code = CO2) 22 24-32 L [facility] HospitalUrdrooiKTODFKGZN7262-86-83 14:33:00 Test Item Value Reference Range Interpretation Comments Calcium Lvl (test code = Calcium Lvl) 7.6 8.5-10.5 L [facility] HospitalRsbppgcFEUVJDYSH8324-04-05 14:33:00 Test Item Value Reference Range Interpretation Comments Creatinine Lvl (test code = Creatinine 1.0 0.5-1.4 N Lvl) [facility] HospitalEsbpgtuBQXGGPVLY8992-14-83 14:33:00 Test Item Value Reference Range Interpretation Comments BUN (test code = BUN) 16 7-22 N [facility] HospitalTdktnllHFEFANIFP3469-92-42 14:33:00 Test Item Value Reference Range Interpretation Comments Glucose Lvl (test code = Glucose Lvl) 115 70-99 H [facility] HospitalWytuhlmEGINVISBH0429-18-83 14:33:00 Test Item Value Reference Range Interpretation Comments AGAP (test code = AGAP) 15.0 10.0-20.0 N [facility] HospitalCgpqjfgZTKRCHSRP0029-10-33 14:33:00 Test Item Value Reference Range Interpretation Comments Magnesium Lvl (test code = Magnesium 1.3 1.8-2.4 L Lvl) [facility] HospitalIymdursTRZRXMLPWQ1166-12-42 14:33:00 Test Item Value Reference Range Interpretation Comments Tot Cell Ct (test code = Tot Cell Ct) 100 1 [facility] HospitalDzupytqICRWTIDNFE9337-50-44 14:33:00 Test Item Value Reference Range Interpretation Comments Plt Morph (test code = Normal (12/07/2011 N Plt Morph) 09:33:00) [facility] HospitalGdooxxzGYTHYFHRWE2891-15-25 14:33:00 Test Item Value Reference Range Interpretation Comments Atypical Lymphs (test code = Atypical 0.0 N Lymphs) [facility] HospitalLjfzhatILFMKRNPAN8987-15-37 14:33:00 Test Item Value Reference Range Interpretation Comments Metamyelocytes (test code 1.0 See_Comment N [ Automated message] = Metamyelocytes) The system which generated this result transmitted ref erence range: <=1.0. T he reference range was not used to int erpret this result as normal/abnormal . [facility] HospitalGimndbdSWGXXDSTUG6139-89-70 14:33:00 Test Item Value Reference Range Interpretation Comments Monocytes (test code = Monocytes) 8.0 2.0-12.0 N [facility] HospitalFgovsnkHOVCALDPOJ3013-16-21 14:33:00 Test Item Value Reference Range Interpretation Comments Lymphocytes (test code = Lymphocytes) 17.0 20.0-40.0 L [facility] HospitalYqjfuayXBHPZBANYK1253-61-14 14:33:00 Test Item Value Reference Range Interpretation Comments Segs (test code = Segs) 34.0 45.0-75.0 L [facility] HospitalEyuvvobAAZFQXOFBM2651-64-19 14:33:00 Test Item Value Reference Range Interpretation Comments Bands (test code = 40.0 See_Comment H [Automat ed message] The Bands) system which ge nerated this result transmit max reference range : <=11.0. The reference r javier was not used to interpr et this result as luis l/abnormal. [facility] HospitalAjxvpcgBWZYJVYABV9397-16-17 14:33:00 Test Item Value Reference Range Interpretation Comments RBC Morph (test code = Normal (12/07/2011 N RBC Morph) 09:33:00) [facility] HospitalPyekhapEFFEUWCHTV5911-59-93 14:33:00 Test Item Value Reference Range Interpretation Comments Monocytes # (test code 0.8 See_Comment N [Aut omated message] The = Monocytes #) system which generated this result tra nsmitted reference range : <=0.8. The reference r javier was not used to int erpret this result as normal/abnormal . [facility] HospitalQaejfrhMUOZIJXSJR8689-59-37 14:33:00 Test Item Value Reference Range Interpretation Comments Segs-Bands # (test code = Segs-Bands #) 7.2 1.5-8.1 N [facility] HospitalGuaebxzIHYSBNZBDX4573-64-46 14:33:00 Test Item Value Reference Range Interpretation Comments Lymphocytes # (test code = Lymphocytes 1.6 1.0-5.5 N #) [facility] HospitalNfuvruoHBQPOWXXBY1085-55-08 14:33:00 Test Item Value Reference Range Interpretation Comments RDW (test code = RDW) 15.8 11.5-14.5 H [facility] HospitalHzxjrdiATBOEZSQYM8413-44-08 14:33:00 Test Item Value Reference Range Interpretation Comments Hct (test code = Hct) 25.2 36.0-48.0 L [facility] HospitalVhseovbCZPXQITLAQ5678-99-74 14:33:00 Test Item Value Reference Range Interpretation Comments Hgb (test code = Hgb) 8.3 12.0-16.0 L [facility] HospitalLlldgibMFNJJKWKTX5379-11-29 14:33:00 Test Item Value Reference Range Interpretation Comments MCV (test code = MCV) 88.5 81.0-99.0 N [facility] HospitalNjhlqnpWHJHHXRMHJ2232-82-16 14:33:00 Test Item Value Reference Range Interpretation Comments MCHC (test code = MCHC) 32.8 32.0-36.0 N [facility] HospitalTvgwxsfRMJQFNLJNZ5148-32-65 14:33:00 Test Item Value Reference Range Interpretation Comments MCH (test code = MCH) 29.0 pg 27.0-31.0 N [facility] HospitalZzujqqhEZILVBSEIK3250-17-53 14:33:00 Test Item Value Reference Range Interpretation Comments Platelet (test code = Platelet) 165 133-450 N [facility] HospitalXhwewieKQGUWZOIBU6235-45-53 14:33:00 Test Item Value Reference Range Interpretation Comments MPV (test code = MPV) 7.6 7.4-10.4 N [facility] HospitalKqlidwsMNNZINVBZK6010-03-63 14:33:00 Test Item Value Reference Range Interpretation Comments RBC (test code = RBC) 2.85 4.20-5.40 L [facility] HospitalVuvtkdqYUCVVMKZTN5848-85-63 14:33:00 Test Item Value Reference Range Interpretation Comments WBC (test code = WBC) 9.7 3.7-10.4 N [facility]LueucnfMbgpzhlwosxe0382-02-38 22:45:00 Test Item Value Reference Range Interpretation Comments Culture: Blood (test code = Culture: Blood) [facility] CenterVehcgiuLndqjxlvxbah5019-09-97 22:45:00 Test Item Value Reference Range Interpretation Comments Culture: Blood (test code = Culture: Blood) [facility] CenterMupfvlkNptodcltdukd6626-60-10 22:45:00 Test Item Value Reference Range Interpretation Comments Culture: Blood (test code = Culture: Blood) [facility] CenterEfkzvucViajngrhloez4197-31-47 22:30:00 Test Item Value Reference Range Interpretation Comments Culture: Blood (test code = Culture: Blood) [facility] CenterFnxsahnYfhlavscihwd9700-29-28 22:30:00 Test Item Value Reference Range Interpretation Comments Culture: Blood (test code = Culture: Blood) [facility]GplniqpGwgpgdngekjd8293-21-10 22:30:00 Test Item Value Reference Range Interpretation Comments Culture: Blood (test code = Culture: Blood) [facility] HospitalLmwkprhWKDITZRNAZ4941-64-72 22:15:00 Test Item Value Reference Range Interpretation Comments UA Bili (test code = Negative *NA*(12/06/2011 UA Bili) 17:15:00) [facility] HospitalXvvdcbkNFHVZFHSLN4108-65-17 22:15:00 Test Item Value Reference Range Interpretation Comments UA Nitrite (test code Negative (12/06/2011 N = UA Nitrite) 17:15:00) [facility] TempleDjzowetRCDHGFIYRM3583-48-72 22:15:00 Test Item Value Reference Range Interpretation Comments UA WBC (test code = UA WBC) 3 <=5 N [facility] TempleVbbviliFZEEPTFLCE9920-93-17 22:15:00 Test Item Value Reference Range Interpretation Comments UA Mucus (test code = Many /LPF A UA Mucus) *ABN*(12/06/2011 17:15:00) [facility] TempleTqbfnnnYRSLRNTWZG2508-36-64 22:15:00 Test Item Value Reference Range Interpretation Comments UA Leuk Est (test Negative (12/06/2011 N code = UA Leuk Est) 17:15:00) [facility] TempleSdooximJJKFXRKWKK6390-75-24 22:15:00 Test Item Value Reference Range Interpretation Comments UA Sq Epi (test code Occasional /LPF = UA Sq Epi) *NA*(12/06/2011 17:15:00) [facility] TempleIzjkmubZXEVXPKUTB1931-81-14 22:15:00 Test Item Value Reference Range Interpretation Comments UA Blood (test code = Negative (12/06/2011 N UA Blood) 17:15:00) [facility] TempleYrtjgboNZCHKJSHDH1906-64-21 22:15:00 Test Item Value Reference Range Interpretation Comments UA Urobilinogen (test code *NA*(12/06/2011 0.1-1.0 = UA Urobilinogen) 17:15:00) [facility] HospitalPpkmfvcVKXNCKEKJJ7804-14-98 22:15:00 Test Item Value Reference Range Interpretation Comments UA Protein (test code = 20 mg/dL A UA Protein) *ABN*(12/06/2011 17:15:00) [facility] TempleBuhzyyzEQFECTVHFO2965-18-83 22:15:00 Test Item Value Reference Range Interpretation Comments UA Ketones (test code Negative mg/dL = UA Ketones) *NA*(12/06/2011 17:15:00) [facility] TempleRgzcqbbQRRZWOTEVQ0718-95-36 22:15:00 Test Item Value Reference Range Interpretation Comments UA Glucose (test code Negative mg/dL = UA Glucose) *NA*(12/06/2011 17:15:00) [facility] TempleDdlhmmyGRDNQMOSOS8473-08-24 22:15:00 Test Item Value Reference Range Interpretation Comments UA Turbidity (test code = Clear (12/06/2011 N UA Turbidity) 17:15:00) [facility] TempleWvorgccBGKKKHUEBM9668-83-93 22:15:00 Test Item Value Reference Range Interpretation Comments UA Color (test code = Yellow *NA*(12/06/2011 UA Color) 17:15:00) [facility] TempleYljnxozMESJVWCAGO4615-72-51 22:15:00 Test Item Value Reference Range Interpretation Comments UA pH (test code = UA pH) 5.5 5.0-8.0 N [facility] TempleEsmxbxkHKEGFPYSSN3628-05-79 22:15:00 Test Item Value Reference Range Interpretation Comments UA Spec Grav (test code = UA Spec Grav) 1.016 N [facility] TempleWmifqqmEIPEQIWFLV8757-26-29 22:15:00 Test Item Value Reference Range Interpretation Comments UA Bili (test code = Negative *NA*(12/06/2011 UA Bili) 17:15:00) [facility] TemplePvvhrnaXQLETDCEEL9778-13-96 22:15:00 Test Item Value Reference Range Interpretation Comments UA Nitrite (test code Negative (12/06/2011 N = UA Nitrite) 17:15:00) [facility] TempleWwyqrehOPUQJKILCK5030-73-86 22:15:00 Test Item Value Reference Range Interpretation Comments UA WBC (test code = 3 See_Comment N [Automa max message] The UA WBC) system which ge nerated this result transmit max reference range : <=5. The reference range was not used to interpr et this result as luis l/abnormal. [facility] TempleAgcayyrAIFZFXRQUS2953-08-86 22:15:00 Test Item Value Reference Range Interpretation Comments UA Mucus (test code = Many /LPF A UA Mucus) *ABN*(12/06/2011 17:15:00) [facility] TempleVapnupmYMGCAAHBGL7269-86-21 22:15:00 Test Item Value Reference Range Interpretation Comments UA Leuk Est (test Negative (12/06/2011 N code = UA Leuk Est) 17:15:00) [facility] TempleGtxsnhvGCWGIHJHYC5478-91-14 22:15:00 Test Item Value Reference Range Interpretation Comments UA Sq Epi (test code Occasional /LPF = UA Sq Epi) *NA*(12/06/2011 17:15:00) [facility] TempleQibudkuQZCYAOUZKY6806-70-95 22:15:00 Test Item Value Reference Range Interpretation Comments UA Blood (test code = Negative (12/06/2011 N UA Blood) 17:15:00) [facility] TempleNoizdisZHVCPENIQL4166-76-91 22:15:00 Test Item Value Reference Range Interpretation Comments UA Urobilinogen (test code *NA*(12/06/2011 0.1-1.0 = UA Urobilinogen) 17:15:00) [facility] TempleHzrexvcWYNPQRWEZE6280-68-22 22:15:00 Test Item Value Reference Range Interpretation Comments UA Protein (test code = 20 mg/dL A UA Protein) *ABN*(12/06/2011 17:15:00) [facility] TempleDigagxoHGOJQLWYJS2380-93-43 22:15:00 Test Item Value Reference Range Interpretation Comments UA Ketones (test code Negative mg/dL = UA Ketones) *NA*(12/06/2011 17:15:00) [facility] TempleEijcnltEWGVWXRMTW2058-74-36 22:15:00 Test Item Value Reference Range Interpretation Comments UA Glucose (test code Negative mg/dL = UA Glucose) *NA*(12/06/2011 17:15:00) [facility] TempleToyjnxjJKXCSWQZYM2454-50-00 22:15:00 Test Item Value Reference Range Interpretation Comments UA Turbidity (test code = Clear (12/06/2011 N UA Turbidity) 17:15:00) [facility] TempleKeawjcuEYCGSTDXCV0267-24-00 22:15:00 Test Item Value Reference Range Interpretation Comments UA Color (test code = Yellow *NA*(12/06/2011 UA Color) 17:15:00) [facility] TempleUmhgoobCKDPJQJHXK2920-19-38 22:15:00 Test Item Value Reference Range Interpretation Comments UA pH (test code = UA pH) 5.5 5.0-8.0 N [facility] HospitalTrbpfbwASVARSPGLU8909-80-25 22:15:00 Test Item Value Reference Range Interpretation Comments UA Spec Grav (test code = UA Spec Grav) 1.016 N [facility] HospitalJwfmtybLPJJWBECFF9587-67-91 22:15:00 Test Item Value Reference Range Interpretation Comments UA Bili (test code = Negative *NA*(12/06/2011 UA Bili) 17:15:00) [facility] HospitalPtqffvaBWMNVHELPZ3048-78-69 22:15:00 Test Item Value Reference Range Interpretation Comments UA Nitrite (test code Negative (12/06/2011 N = UA Nitrite) 17:15:00) [facility] TempleMmryfvuCHYDYHAZFM8623-77-70 22:15:00 Test Item Value Reference Range Interpretation Comments UA WBC (test code = 3 See_Comment N [Automa max message] The UA WBC) system which ge nerated this result transmit max reference range : <=5. The reference range was not used to interpr et this result as luis l/abnormal. [facility] [facility] TempleWavnsnzBIQUBHERVV4402-50-17 22:15:00 Test Item Value Reference Range Interpretation Comments UA Mucus (test code = Many /LPF A UA Mucus) *ABN*(12/06/2011 17:15:00) [facility] TempleTvuagvsOVGYJIEIOR0974-58-94 22:15:00 Test Item Value Reference Range Interpretation Comments UA Leuk Est (test Negative (12/06/2011 N code = UA Leuk Est) 17:15:00) [facility] TempleVrhndemRTEXVTCLOX8163-10-58 22:15:00 Test Item Value Reference Range Interpretation Comments UA Sq Epi (test code Occasional /LPF = UA Sq Epi) *NA*(12/06/2011 17:15:00) [facility]GAU4253[facility]25-05 22:15:00 Test Item Value Reference Range Interpretation Comments UA Blood (test code = Negative (12/06/2011 N UA Blood) 17:15:00) [facility]kwxqpwZOOOPVPBHR3264-90-55 22:15:00 Test Item Value Reference Range Interpretation Comments UA Urobilinogen (test code *NA*(12/06/2011 0.1-1.0 = UA Urobilinogen) 17:15:00) [facility] TempleEuunlfwNFBFIVLMNF9575-94-42 22:15:00 Test Item Value Reference Range Interpretation Comments UA Protein (test code = 20 mg/dL A UA Protein) *ABN*(12/06/2011 17:15:00) [facility] TempleGxcubnfTDVSOIOJQC7305-76-71 22:15:00 Test Item Value Reference Range Interpretation Comments UA Ketones (test code Negative mg/dL = UA Ketones) *NA*(12/06/2011 17:15:00) [facility] TempleWwkgflwOPNXXECQTU6783-55-57 22:15:00 Test Item Value Reference Range Interpretation Comments UA Glucose (test code Negative mg/dL = UA Glucose) *NA*(12/06/2011 17:15:00) [facility] TempleCskbggnCWVBWZCHZH9118-48-39 22:15:00 Test Item Value Reference Range Interpretation Comments UA Turbidity (test code = Clear (12/06/2011 N UA Turbidity) 17:15:00) [facility] TempleWducdktTUVNRMACEU6758-09-53 22:15:00 Test Item Value Reference Range Interpretation Comments UA Color (test code = Yellow *NA*(12/06/2011 UA Color) 17:15:00) [facility] TempleRsztmcoDKGKUVITOF1140-05-19 22:15:00 Test Item Value Reference Range Interpretation Comments UA pH (test code = UA pH) 5.5 5.0-8.0 N [facility] TempleMqmuzjmXAKMMTPQNW7788-95-72 22:15:00 Test Item Value Reference Range Interpretation Comments UA Spec Grav (test code = UA Spec Grav) 1.016 N [facility]OivyjfhQSVJISNDG0268-13-16 09:20:00 Test Item Value Reference Range Interpretation Comments BUN (test code = BUN) 5 7-22 L [facility] HospitalTgbbikwBYIHYMKOQ2749-35-82 09:20:00 Test Item Value Reference Range Interpretation Comments Creatinine Lvl (test code = Creatinine 0.8 0.5-1.4 N Lvl) [facility] HospitalJtrfrpoJNOVNVYFM0840-04-90 09:20:00 Test Item Value Reference Range Interpretation Comments Glucose Lvl (test code = Glucose Lvl) 108 70-99 H [facility] HospitalAzghemeMZNDISEIO5327-14-56 09:20:00 Test Item Value Reference Range Interpretation Comments Calcium Lvl (test code = Calcium Lvl) 8.0 8.5-10.5 L [facility] HospitalSvsiminYUZGOOOLW2988-03-53 09:20:00 Test Item Value Reference Range Interpretation Comments Chloride Lvl (test code = Chloride Lvl) 107 95-109 N [facility] HospitalEpxqraaZKWALPHZX5322-67-46 09:20:00 Test Item Value Reference Range Interpretation Comments CO2 (test code = CO2) 25 24-32 N [facility] HospitalNlyfujkPXKBLNSIV8278-89-66 09:20:00 Test Item Value Reference Range Interpretation Comments Sodium Lvl (test code = Sodium Lvl) 142 135-145 N [facility] HospitalYoixtrdFHNHPGEIU1433-45-45 09:20:00 Test Item Value Reference Range Interpretation Comments Potassium Lvl (test code = Potassium 4.0 3.5-5.1 N Lvl) [facility] HospitalWivvjmgNCDUXBAPN7824-72-92 09:20:00 Test Item Value Reference Range Interpretation Comments AGAP (test code = AGAP) 14.0 10.0-20.0 N [facility]CfynpzoWGUAALZQZI3042-34-35 09:20:00 Test Item Value Reference Range Interpretation Comments Eosinophils # (test code = Eosinophils 0.1 <=0.5 N #) [facility] HospitalXxlghfoCWUHFYHYZP9846-61-79 09:20:00 Test Item Value Reference Range Interpretation Comments Basophils # (test code = Basophils #) 0.0 <=0.2 N [facility] HospitalNmiswmcMJTRSOAWOK7151-75-05 09:20:00 Test Item Value Reference Range Interpretation Comments Basophils (test code = Basophils) 0.1 <=1.0 N [facility] HospitalXljxnopAPZUCNEMJU4327-73-21 09:20:00 Test Item Value Reference Range Interpretation Comments Eosinophils (test code = Eosinophils) 1.0 <=4.0 N [facility] HospitalBhiziwgYBOEXAHHC1658-05-37 09:20:00 Test Item Value Reference Range Interpretation Comments BUN (test code = BUN) 5 7-22 L [facility] HospitalPrgokdsWOOGRWMPX6716-68-27 09:20:00 Test Item Value Reference Range Interpretation Comments Creatinine Lvl (test code = Creatinine 0.8 0.5-1.4 N Lvl) [facility] HospitalIpyupkiMNAUTXLEL6052-41-33 09:20:00 Test Item Value Reference Range Interpretation Comments Glucose Lvl (test code = Glucose Lvl) 108 70-99 H [facility] HospitalQkyqyagFGGXMLMWU2844-05-22 09:20:00 Test Item Value Reference Range Interpretation Comments Calcium Lvl (test code = Calcium Lvl) 8.0 8.5-10.5 L [facility] HospitalNetdzbgRWBEYEMGH8800-48-42 09:20:00 Test Item Value Reference Range Interpretation Comments Chloride Lvl (test code = Chloride Lvl) 107 95-109 N [facility] HospitalUzfctraCGOLEBCTP4623-32-39 09:20:00 Test Item Value Reference Range Interpretation Comments CO2 (test code = CO2) 25 24-32 N [facility] HospitalFntttpqXQHXANFRI3418-20-55 09:20:00 Test Item Value Reference Range Interpretation Comments Sodium Lvl (test code = Sodium Lvl) 142 135-145 N [facility] HospitalZcuofedBYLPKAHVC3839-92-00 09:20:00 Test Item Value Reference Range Interpretation Comments Potassium Lvl (test code = Potassium 4.0 3.5-5.1 N Lvl) [facility] HospitalDszcgwqTUAVLRXDN9196-32-87 09:20:00 Test Item Value Reference Range Interpretation Comments AGAP (test code = AGAP) 14.0 10.0-20.0 N [facility] HospitalTavonkpCRJOMAUKTU8803-27-13 09:20:00 Test Item Value Reference Range Interpretation Comments Eosinophils # (test code 0.1 See_Comment N [A utomated message] The = Eosinophils #) system whic h generated this result tra nsmitted reference range : <=0.5. The reference r javier was not used to int erpret this result as normal/abnormal . [facility] HospitalHvzbkqiYNMTIFDQJT9155-45-88 09:20:00 Test Item Value Reference Range Interpretation Comments Basophils # (test code 0.0 See_Comment N [Aut omated message] The = Basophils #) system which generated this result tra nsmitted reference range : <=0.2. The reference r javier was not used to int erpret this result as normal/abnormal . [facility] HospitalYejfvtzDHRVMEEKRU1820-53-37 09:20:00 Test Item Value Reference Range Interpretation Comments Basophils (test code = 0.1 See_Comment N [Aut omated message] The Basophils) system which ge nerated this result tra nsmitted reference range : <=1.0. The reference r javier was not used to int erpret this result as normal/abnormal . [facility] HospitalZabohxcTIMMYDZHJH8170-95-96 09:20:00 Test Item Value Reference Range Interpretation Comments Eosinophils (test code = 1.0 See_Comment N [A utomated message] The Eosinophils) system which ge nerated this result tra nsmitted reference range : <=4.0. The reference r javier was not used to int erpret this result as normal/abnormal . [facility] HospitalBuixpbxUBXNKERCE7379-31-13 09:20:00 Test Item Value Reference Range Interpretation Comments BUN (test code = BUN) 5 7-22 L [facility] HospitalXblaljzJIBUGBGIX6855-87-10 09:20:00 Test Item Value Reference Range Interpretation Comments Creatinine Lvl (test code = Creatinine 0.8 0.5-1.4 N Lvl) [facility] HospitalXwyjlzlJPTTEMERT2568-76-77 09:20:00 Test Item Value Reference Range Interpretation Comments Glucose Lvl (test code = Glucose Lvl) 108 70-99 H [facility] HospitalCplfbxcJHSOPQQCR7938-85-53 09:20:00 Test Item Value Reference Range Interpretation Comments Calcium Lvl (test code = Calcium Lvl) 8.0 8.5-10.5 L [facility] HospitalNmasqkqIGGBHKSJJ3119-88-44 09:20:00 Test Item Value Reference Range Interpretation Comments Chloride Lvl (test code = Chloride Lvl) 107 95-109 N [facility] HospitalXtznjakZEJNKEHRI5167-85-94 09:20:00 Test Item Value Reference Range Interpretation Comments CO2 (test code = CO2) 25 24-32 N [facility] HospitalPqqsiqhQXVNDBDIE7031-23-03 09:20:00 Test Item Value Reference Range Interpretation Comments Sodium Lvl (test code = Sodium Lvl) 142 135-145 N [facility] HospitalTvjodakSCGDEJPCW0557-48-49 09:20:00 Test Item Value Reference Range Interpretation Comments Potassium Lvl (test code = Potassium 4.0 3.5-5.1 N Lvl) [facility] HospitalVbwcjqvTSGSWOYEH3473-63-15 09:20:00 Test Item Value Reference Range Interpretation Comments AGAP (test code = AGAP) 14.0 10.0-20.0 N [facility] HospitalLhbkgeqHWEXMVUAID8215-76-83 09:20:00 Test Item Value Reference Range Interpretation Comments Eosinophils # (test code 0.1 See_Comment N [A utomated message] The = Eosinophils #) system whic h generated this result tra nsmitted reference range : <=0.5. The reference r javier was not used to int erpret this result as normal/abnormal . [facility] HospitalAfrjivvIHMWZZCQQP2412-84-02 09:20:00 Test Item Value Reference Range Interpretation Comments Basophils # (test code 0.0 See_Comment N [Aut omated message] The = Basophils #) system which generated this result tra nsmitted reference range : <=0.2. The reference r javier was not used to int erpret this result as normal/abnormal . [facility] HospitalOfcoqysDDDAZXFLZX8758-54-63 09:20:00 Test Item Value Reference Range Interpretation Comments Basophils (test code = 0.1 See_Comment N [Aut omated message] The Basophils) system which ge nerated this result tra nsmitted reference range : <=1.0. The reference r javier was not used to int erpret this result as normal/abnormal . [facility] HospitalLgtdvayZBXMWGSNJS1256-64-01 09:20:00 Test Item Value Reference Range Interpretation Comments Eosinophils (test code = 1.0 See_Comment N [A utomated message] The Eosinophils) system which ge nerated this result tra nsmitted reference range : <=4.0. The reference r javier was not used to int erpret this result as normal/abnormal . [facility] BudaIqqakdlPIMMDJNXA6504-36-82 18:20:00 Test Item Value Reference Range Interpretation Comments Hgb A1C (test code = Hgb A1C) 5.8 [facility] HospitalWookxcbFYXFXAOLQ5831-31-22 18:20:00 Test Item Value Reference Range Interpretation Comments Selenium Lvl (test code = Selenium Lvl) 130 [facility] HospitalPodowrhWVVOEVOGE4876-37-83 18:20:00 Test Item Value Reference Range Interpretation Comments PTH Intact (test code = PTH Intact) 227.6 11.1-79.5 H [facility] HospitalDxipcfpUMBZXPGCS8650-58-55 18:20:00 Test Item Value Reference Range Interpretation Comments CHD Risk (test code = CHD Risk) 3.27 3.90-5.80 L [facility] HospitalZunrsdxWIDVEJOUI9052-07-12 18:20:00 Test Item Value Reference Range Interpretation Comments LDL (test code = LDL) 128 <=129 N [facility] HospitalUtmrrsxYZJAOBOAB8959-52-71 18:20:00 Test Item Value Reference Range Interpretation Comments Chol (test code = Chol) 203 120-200 H [facility] HospitalOjxuvkrEBKBSGTNF3035-18-83 18:20:00 Test Item Value Reference Range Interpretation Comments HDL (test code = HDL) 62 N [facility] HospitalSxzwsnaVPYZBJFJK2824-72-03 18:20:00 Test Item Value Reference Range Interpretation Comments Trig (test code = Trig) 64 <=200 N [facility] HospitalYkporxjPYCCFCNHA2482-22-65 18:20:00 Test Item Value Reference Range Interpretation Comments TIBC (test code = TIBC) 412 228-428 N [facility] HospitalOxgfriyJZMEKTIZY5435-35-58 18:20:00 Test Item Value Reference Range Interpretation Comments Iron (test code = Iron) 138 30-160 N [facility] HospitalZlnkvqyDXJOBIJQZ0846-63-01 18:20:00 Test Item Value Reference Range Interpretation Comments % Satur Fe (test code = % Satur Fe) 33 12-57 N [facility] HospitalWhpfrnbLPSILRPRQ2118-93-88 18:20:00 Test Item Value Reference Range Interpretation Comments UIBC (test code = UIBC) 274 110-370 N [facility] HospitalYtyhlfxVTWZVLVDA9391-53-77 18:20:00 Test Item Value Reference Range Interpretation Comments T4 (test code = T4) 6.3 4.7-13.3 N [facility] HospitalUkgudpdEGLUAYBMJ1620-15-37 18:20:00 Test Item Value Reference Range Interpretation Comments TSH (test code = TSH) 1.600 0.360-3.740 N [facility] HospitalXzyvznlCPEVLFIXH9586-56-95 18:20:00 Test Item Value Reference Range Interpretation Comments Vitamin D2 25-OH (test code = Vitamin no gt D2 25-OH) [facility] HospitalPypewbzDYUDZJQPA6250-12-32 18:20:00 Test Item Value Reference Range Interpretation Comments Vitamin D3 25-OH (test code = Vitamin 13 D3 25-OH) [facility] HospitalPiiqnveVCRBPBSAP0814-54-05 18:20:00 Test Item Value Reference Range Interpretation Comments Vitamin D, 25-OH, Total (test code = 13 30-100 L Vitamin D, 25-OH, Total) [facility] HospitalEbokjwkHCAPNFNEA4772-98-62 18:20:00 Test Item Value Reference Range Interpretation Comments Vitamin A (test code = Vitamin A) 41 38-98 [facility] HospitalLilcccpPQWOOTIUJ9666-74-82 18:20:00 Test Item Value Reference Range Interpretation Comments Folate Lvl (test code = Folate Lvl) 19.3 N [facility] HospitalOrbmpylLCOVFJDQH6190-08-58 18:20:00 Test Item Value Reference Range Interpretation Comments Vitamin B1 (test code = Vitamin B1) 122 87-280 [facility] HospitalPxaxrnkXZFVKKZOF9879-86-46 18:20:00 Test Item Value Reference Range Interpretation Comments Copper Lvl (test code = Copper Lvl) 121 70-175 [facility] HospitalZqacmaeYGNZHRRRK9150-91-83 18:20:00 Test Item Value Reference Range Interpretation Comments Vitamin B12 Lvl (test code = Vitamin 591 211-911 N B12 Lvl) [facility] HospitalNbefzimIFNXIGITK1228-71-34 18:20:00 Test Item Value Reference Range Interpretation Comments Phosphorus (test code = Phosphorus) 3.6 2.5-4.5 N [facility] HospitalVahmqlrBUTVGOOEJ6621-00-97 18:20:00 Test Item Value Reference Range Interpretation Comments Magnesium Lvl (test code = Magnesium 1.9 1.8-2.4 N Lvl) [facility] HospitalLlejaymKATAOBFJN5317-44-73 18:20:00 Test Item Value Reference Range Interpretation Comments Globulin (test code = Globulin) 2.8 2.0-4.0 N [facility] HospitalAkeqpkcCGSMAIVPK6140-02-30 18:20:00 Test Item Value Reference Range Interpretation Comments A/G Ratio (test code = A/G Ratio) 1.2 0.7-1.6 N [facility] HospitalNquqiljVODHMIHTJ3924-61-58 18:20:00 Test Item Value Reference Range Interpretation Comments AGAP (test code = AGAP) 12.2 10.0-20.0 N [facility] HospitalVneneryLTHUHYURH1150-07-66 18:20:00 Test Item Value Reference Range Interpretation Comments B/C Ratio (test code = B/C Ratio) 14 6-25 N [facility] HospitalByweyecFIQSYMTXU2499-47-25 18:20:00 Test Item Value Reference Range Interpretation Comments Bili Total (test code = Bili Total) 0.3 0.2-1.3 N [facility] HospitalMsmdpbzBWBCPIKKB6187-43-16 18:20:00 Test Item Value Reference Range Interpretation Comments AST (test code = AST) 7 <=37 N [facility] HospitalKmokwnuLTHHBYHDU4352-19-30 18:20:00 Test Item Value Reference Range Interpretation Comments Albumin Lvl (test code = Albumin Lvl) 3.5 3.5-5.0 N [place] 386042-07-10 18:20:00 Test Item Value Reference Range Interpretation Comments ALT (test code = ALT) 7 <=65 N [facility] HospitalFmcuemsSMFKUEWAB7473-53-68 18:20:00 Test Item Value Reference Range Interpretation Comments Alk Phos (test code = Alk Phos) 54 39-136 N [facility] HospitalJgyugukAYEFUBHNJ9004-40-60 18:20:00 Test Item Value Reference Range Interpretation Comments Total Protein (test code = Total 6.3 6.4-8.4 L Protein) [facility] HospitalDqsuvciVTANWEZHI1925-31-94 18:20:00 Test Item Value Reference Range Interpretation Comments CO2 (test code = CO2) 26 24-32 N [facility] HospitalHbksmnjROCXIHFUX5611-28-26 18:20:00 Test Item Value Reference Range Interpretation Comments Calcium Lvl (test code = Calcium Lvl) 8.7 8.5-10.5 N [facility] HospitalWueaillIIUGTNPXB3614-77-92 18:20:00 Test Item Value Reference Range Interpretation Comments Sodium Lvl (test code = Sodium Lvl) 139 135-145 N [facility] HospitalGukzpcyEUBSSREGY2217-47-30 18:20:00 Test Item Value Reference Range Interpretation Comments Potassium Lvl (test code = Potassium 4.2 3.5-5.1 N Lvl) [facility] HospitalOfddmlrJUSNEUITQ6273-23-06 18:20:00 Test Item Value Reference Range Interpretation Comments Chloride Lvl (test code = Chloride Lvl) 105 95-109 N [facility] HospitalKnqqszpNRBSKGXBF1534-00-32 18:20:00 Test Item Value Reference Range Interpretation Comments Glucose Lvl (test code = Glucose Lvl) 111 70-99 H [facility] HospitalSjovimiUZBEPDFQY8738-40-52 18:20:00 Test Item Value Reference Range Interpretation Comments BUN (test code = BUN) 11 7-22 N [facility] HospitalShhxalpBAEBWFOYW7617-30-06 18:20:00 Test Item Value Reference Range Interpretation Comments Creatinine Lvl (test code = Creatinine 0.8 0.5-1.4 N Lvl) [facility] HospitalBtmpswwHTAWJCMGBA5466-70-01 18:20:00 Test Item Value Reference Range Interpretation Comments Eosinophils (test code = Eosinophils) 0.7 <=4.0 N [facility] HospitalCdffcjgSKQEXSMCFP9591-05-73 18:20:00 Test Item Value Reference Range Interpretation Comments Basophils (test code = Basophils) 0.1 <=1.0 N [facility] HospitalMzqorbuLIULMOSFAZ1447-10-37 18:20:00 Test Item Value Reference Range Interpretation Comments Eosinophils # (test code = Eosinophils 0.0 <=0.5 N #) [facility] HospitalQhxmhsgANSDCQBHPJ0781-22-57 18:20:00 Test Item Value Reference Range Interpretation Comments Basophils # (test code = Basophils #) 0.0 <=0.2 N [facility] HospitalDtcgxceONLOKLIDTY5989-35-13 18:20:00 Test Item Value Reference Range Interpretation Comments INR (test code = INR) 0.92 0.85-1.17 N [facility] HospitalHwxglutJBZCNROHFB7261-85-77 18:20:00 Test Item Value Reference Range Interpretation Comments PT (test code = PT) 12.4 s 12.0-14.7 N [facility]JiooygwRWXSIVQJFK8491-32-13 18:20:00 Test Item Value Reference Range Interpretation Comments Prealbumin (test code = Prealbumin) 19.9 18.0-45.0 N [facility] HospitalVtgrgqjYKQEGGGVY3637-49-02 18:20:00 Test Item Value Reference Range Interpretation Comments Hgb A1C (test code = Hgb A1C) 5.8 [facility] HospitalFicybozZFIWADVJC3183-48-16 18:20:00 Test Item Value Reference Range Interpretation Comments Selenium Lvl (test code = Selenium Lvl) 130 [facility] HospitalAynnpqjFACUQMCOA4096-40-65 18:20:00 Test Item Value Reference Range Interpretation Comments PTH Intact (test code = PTH Intact) 227.6 11.1-79.5 H [facility] HospitalWdfdcrdYLQINOKSZ8424-75-29 18:20:00 Test Item Value Reference Range Interpretation Comments CHD Risk (test code = CHD Risk) 3.27 3.90-5.80 L [facility] HospitalDzzcfddOWZLIHAHB7126-60-97 18:20:00 Test Item Value Reference Range Interpretation Comments LDL (test code = LDL) 128 See_Comment N [Auto mated message] The system which ge nerated this result transmit max reference range : <=129. The reference range was not used to interpr et this result as luis l/abnormal. [facility] HospitalYoaeaptIGTFFVCOF3514-00-73 18:20:00 Test Item Value Reference Range Interpretation Comments Chol (test code = Chol) 203 120-200 H [facility] HospitalQkcbgezJKWYWGXLQ2611-10-40 18:20:00 Test Item Value Reference Range Interpretation Comments HDL (test code = HDL) 62 N [facility] HospitalXncuittQXCOCHZSE2287-08-79 18:20:00 Test Item Value Reference Range Interpretation Comments Trig (test code = 64 See_Comment N [Automate d message] The Trig) system which ge nerated this result transmit max reference range : <=200. The reference range was not used to interpr et this result as luis l/abnormal. [facility] HospitalWaghxcfXAHNXCPUH0152-76-84 18:20:00 Test Item Value Reference Range Interpretation Comments TIBC (test code = TIBC) 412 228-428 N [facility] HospitalUrmsekxJLXDCJJCC3454-30-08 18:20:00 Test Item Value Reference Range Interpretation Comments Iron (test code = Iron) 138 30-160 N [facility] HospitalPflxsexUEWTTBSEJ6066-96-90 18:20:00 Test Item Value Reference Range Interpretation Comments % Satur Fe (test code = % Satur Fe) 33 12-57 N [facility] HospitalEythkfvIZQLRUKXM5784-49-36 18:20:00 Test Item Value Reference Range Interpretation Comments UIBC (test code = UIBC) 274 110-370 N [facility] HospitalTqalmnwKKWTOJGFT8754-05-42 18:20:00 Test Item Value Reference Range Interpretation Comments T4 (test code = T4) 6.3 4.7-13.3 N [facility] HospitalVjxisyuEGMAYLHQX8819-46-83 18:20:00 Test Item Value Reference Range Interpretation Comments TSH (test code = TSH) 1.600 0.360-3.740 N [facility] HospitalAmmdnzcMLAKWRTYS3862-57-68 18:20:00 Test Item Value Reference Range Interpretation Comments Vitamin D2 25-OH (test code = Vitamin no gt D2 25-OH) [facility] HospitalZzeemhrNZXYHQESM3041-84-65 18:20:00 Test Item Value Reference Range Interpretation Comments Vitamin D3 25-OH (test code = Vitamin 13 D3 25-OH) [facility] HospitalFfhqavzSKLHJDIAN7207-58-22 18:20:00 Test Item Value Reference Range Interpretation Comments Vitamin D, 25-OH, Total (test code = 13 30-100 L Vitamin D, 25-OH, Total) [facility] HospitalVsxsaevXPEOPBNDP3693-39-23 18:20:00 Test Item Value Reference Range Interpretation Comments Vitamin A (test code = Vitamin A) 41 38-98 [facility] HospitalVblfqehLOMQOSWIN6125-03-18 18:20:00 Test Item Value Reference Range Interpretation Comments Folate Lvl (test code = Folate Lvl) 19.3 N [facility] HospitalQrkcowaIBRRCBINY5601-68-45 18:20:00 Test Item Value Reference Range Interpretation Comments Vitamin B1 (test code = Vitamin B1) 122 87-280 [facility] HospitalMzoataxRUVEOMLUV0154-37-40 18:20:00 Test Item Value Reference Range Interpretation Comments Copper Lvl (test code = Copper Lvl) 121 70-175 [facility] HospitalGrqfoeaZLUNPCOGD8172-54-22 18:20:00 Test Item Value Reference Range Interpretation Comments Vitamin B12 Lvl (test code = Vitamin 591 211-911 N B12 Lvl) [facility] HospitalDwynmaiUWNLEMOKW8029-15-99 18:20:00 Test Item Value Reference Range Interpretation Comments Phosphorus (test code = Phosphorus) 3.6 2.5-4.5 N [facility] HospitalEmjblyqAXDECUYOY7929-26-77 18:20:00 Test Item Value Reference Range Interpretation Comments Magnesium Lvl (test code = Magnesium 1.9 1.8-2.4 N Lvl) [facility] HospitalCnzqubiQTHQXJXUR6156-16-81 18:20:00 Test Item Value Reference Range Interpretation Comments Globulin (test code = Globulin) 2.8 2.0-4.0 N [facility] HospitalHyywaenYTKWKVYJV2830-86-38 18:20:00 Test Item Value Reference Range Interpretation Comments A/G Ratio (test code = A/G Ratio) 1.2 0.7-1.6 N [facility] HospitalSxekupdWXTIMAELN6512-61-65 18:20:00 Test Item Value Reference Range Interpretation Comments AGAP (test code = AGAP) 12.2 10.0-20.0 N [facility] HospitalYlxzbzzYFKEIOYDL4976-59-34 18:20:00 Test Item Value Reference Range Interpretation Comments B/C Ratio (test code = B/C Ratio) 14 6-25 N [facility] HospitalJktlowbEFNUIPJNZ9686-80-81 18:20:00 Test Item Value Reference Range Interpretation Comments Bili Total (test code = Bili Total) 0.3 0.2-1.3 N [facility] HospitalIaghcqsLDEQGVPDR6517-33-86 18:20:00 Test Item Value Reference Range Interpretation Comments AST (test code = AST) 7 See_Comment N [Auto mated message] The system which ge nerated this result transmit max reference range : <=37. The reference range was not used to interpr et this result as luis l/abnormal. [facility] HospitalSnytshmQJBOPUFOW6142-55-03 18:20:00 Test Item Value Reference Range Interpretation Comments Albumin Lvl (test code = Albumin Lvl) 3.5 3.5-5.0 N [facility] HospitalNrfbfmqTVSUBANZJ7947-14-47 18:20:00 Test Item Value Reference Range Interpretation Comments ALT (test code = ALT) 7 See_Comment N [Auto mated message] The system which ge nerated this result transmit max reference range : <=65. The reference range was not used to interpr et this result as luis l/abnormal. [facility] HospitalAhivqbxJZJZRKTVP0134-22-89 18:20:00 Test Item Value Reference Range Interpretation Comments Alk Phos (test code = Alk Phos) 54 39-136 N [facility] HospitalAamsblkCNMEDMEDJ1995-08-63 18:20:00 Test Item Value Reference Range Interpretation Comments Total Protein (test code = Total 6.3 6.4-8.4 L Protein) [facility] HospitalThxpekiGWVNFCSAK6095-65-31 18:20:00 Test Item Value Reference Range Interpretation Comments CO2 (test code = CO2) 26 24-32 N [facility] HospitalSscbvihHZOBUHAFS1042-01-07 18:20:00 Test Item Value Reference Range Interpretation Comments Calcium Lvl (test code = Calcium Lvl) 8.7 8.5-10.5 N [facility] HospitalTziembjYVMYDPEFO2177-06-46 18:20:00 Test Item Value Reference Range Interpretation Comments Sodium Lvl (test code = Sodium Lvl) 139 135-145 N [facility] HospitalRguhahzVCLXBBXUE2276-76-50 18:20:00 Test Item Value Reference Range Interpretation Comments Potassium Lvl (test code = Potassium 4.2 3.5-5.1 N Lvl) [facility] HospitalJotlyuxUYYFNGKEE2013-50-22 18:20:00 Test Item Value Reference Range Interpretation Comments Chloride Lvl (test code = Chloride Lvl) 105 95-109 N [facility] HospitalYhznclvSIQJKSFKB4593-22-87 18:20:00 Test Item Value Reference Range Interpretation Comments Glucose Lvl (test code = Glucose Lvl) 111 70-99 H [facility] HospitalNqvusagLNANNCBSW8546-58-69 18:20:00 Test Item Value Reference Range Interpretation Comments BUN (test code = BUN) 11 7-22 N [facility]udaPohextdUSXULSNIG1811-34-71 18:20:00 Test Item Value Reference Range Interpretation Comments Creatinine Lvl (test code = Creatinine 0.8 0.5-1.4 N Lvl) [facility]XvtxhlgHTRQYUVRFX8276-33-19 18:20:00 Test Item Value Reference Range Interpretation Comments Eosinophils (test code = 0.7 See_Comment N [A utomated message] The Eosinophils) system which ge nerated this result tra nsmitted reference range : <=4.0. The reference r javier was not used to int erpret this result as normal/abnormal . [facility] HospitalTroohvyVKVJOGDSUV2804-81-15 18:20:00 Test Item Value Reference Range Interpretation Comments Basophils (test code = 0.1 See_Comment N [Aut omated message] The Basophils) system which ge nerated this result tra nsmitted reference range : <=1.0. The reference r javier was not used to int erpret this result as normal/abnormal . [facility] HospitalZokeivsLMROGTCOOP9732-77-34 18:20:00 Test Item Value Reference Range Interpretation Comments Eosinophils # (test code 0.0 See_Comment N [A utomated message] The = Eosinophils #) system whic h generated this result tra nsmitted reference range : <=0.5. The reference r javier was not used to int erpret this result as normal/abnormal . [facility] HospitalPszzvobHITGZVQCLW8358-40-17 18:20:00 Test Item Value Reference Range Interpretation Comments Basophils # (test code 0.0 See_Comment N [Aut omated message] The = Basophils #) system which generated this result tra nsmitted reference range : <=0.2. The reference r javier was not used to int erpret this result as normal/abnormal . [facility] HospitalBemzaiwZROHUBCRCN1457-89-19 18:20:00 Test Item Value Reference Range Interpretation Comments INR (test code = INR) 0.92 0.85-1.17 N [facility] HospitalZfecnqmGXIPHAKGFD5478-66-21 18:20:00 Test Item Value Reference Range Interpretation Comments PT (test code = PT) 12.4 s 12.0-14.7 N [facility]udaJbwuspfXVCMXLIDAG3467-02-85 18:20:00 Test Item Value Reference Range Interpretation Comments Prealbumin (test code = Prealbumin) 19.9 18.0-45.0 N [facility]GgcnpsyUBNJMEBAM7885-12-16 18:20:00 Test Item Value Reference Range Interpretation Comments Hgb A1C (test code = Hgb A1C) 5.8 [facility] HospitalTckgiwqVQBVKRTNE7907-01-47 18:20:00 Test Item Value Reference Range Interpretation Comments Selenium Lvl (test code = Selenium Lvl) 130 [facility] HospitalKabvywmVCMLSTAQP5738-33-10 18:20:00 Test Item Value Reference Range Interpretation Comments PTH Intact (test code = PTH Intact) 227.6 11.1-79.5 H [facility] HospitalCvlginkIBMKUWPNJ7703-49-69 18:20:00 Test Item Value Reference Range Interpretation Comments CHD Risk (test code = CHD Risk) 3.27 3.90-5.80 L [facility] HospitalOtjotheXBDBOCHNL2374-41-55 18:20:00 Test Item Value Reference Range Interpretation Comments LDL (test code = LDL) 128 See_Comment N [Auto mated message] The system which ge nerated this result transmit max reference range : <=129. The reference range was not used to interpr et this result as luis l/abnormal. [facility] HospitalMgjugcnRRFWLSYWG6688-91-21 18:20:00 Test Item Value Reference Range Interpretation Comments Chol (test code = Chol) 203 120-200 H [facility] HospitalSrgqtkaKUJMABXHJ2579-58-95 18:20:00 Test Item Value Reference Range Interpretation Comments HDL (test code = HDL) 62 N [facility] HospitalPargzvyXDDCJATPO9263-47-23 18:20:00 Test Item Value Reference Range Interpretation Comments Trig (test code = 64 See_Comment N [Automate d message] The Trig) system which ge nerated this result transmit max reference range : <=200. The reference range was not used to interpr et this result as luis l/abnormal. [facility] HospitalOmihnmjSDYQWPMOJ3426-47-88 18:20:00 Test Item Value Reference Range Interpretation Comments TIBC (test code = TIBC) 412 228-428 N [facility] HospitalFrgyglrHFJCOWCFJ3146-47-68 18:20:00 Test Item Value Reference Range Interpretation Comments Iron (test code = Iron) 138 30-160 N [facility] HospitalGsvhuunVROVQZXDK6330-38-42 18:20:00 Test Item Value Reference Range Interpretation Comments % Satur Fe (test code = % Satur Fe) 33 12-57 N [facility] HospitalSpcubdbAGWSRGGNY9008-61-82 18:20:00 Test Item Value Reference Range Interpretation Comments UIBC (test code = UIBC) 274 110-370 N [facility] HospitalCdvvrtpQLIUSWVDG8058-57-25 18:20:00 Test Item Value Reference Range Interpretation Comments T4 (test code = T4) 6.3 4.7-13.3 N [facility] HospitalQczximjZBSZOCJCB7306-73-74 18:20:00 Test Item Value Reference Range Interpretation Comments TSH (test code = TSH) 1.600 0.360-3.740 N [facility] HospitalWswenlzAYCFRKZWS9954-11-83 18:20:00 Test Item Value Reference Range Interpretation Comments Vitamin D2 25-OH (test code = Vitamin no gt D2 25-OH) [facility] HospitalHcradypLCRLYIPOQ3506-47-94 18:20:00 Test Item Value Reference Range Interpretation Comments Vitamin D3 25-OH (test code = Vitamin 13 D3 25-OH) [facility] HospitalDvaoehnRBMUVBIGX4179-75-42 18:20:00 Test Item Value Reference Range Interpretation Comments Vitamin D, 25-OH, Total (test code = 13 30-100 L Vitamin D, 25-OH, Total) [facility] HospitalAipbcwxLBLJFRZVO4144-26-37 18:20:00 Test Item Value Reference Range Interpretation Comments Vitamin A (test code = Vitamin A) 41 38-98 [facility] HospitalCfpgsufLQHGHMUOJ5389-79-85 18:20:00 Test Item Value Reference Range Interpretation Comments Folate Lvl (test code = Folate Lvl) 19.3 N [facility] HospitalHqyaxekTELTHTJPN8079-28-49 18:20:00 Test Item Value Reference Range Interpretation Comments Vitamin B1 (test code = Vitamin B1) 122 87-280 [facility] HospitalSazkrzaRAVQDQBKV5220-38-49 18:20:00 Test Item Value Reference Range Interpretation Comments Copper Lvl (test code = Copper Lvl) 121 70-175 [facility] HospitalXedppulVZXHKJSGN1121-75-08 18:20:00 Test Item Value Reference Range Interpretation Comments Vitamin B12 Lvl (test code = Vitamin 591 211-911 N B12 Lvl) [facility] HospitalLyilfmrFNHQAHAHP6761-80-94 18:20:00 Test Item Value Reference Range Interpretation Comments Phosphorus (test code = Phosphorus) 3.6 2.5-4.5 N [facility] HospitalDeredrsZFOCJZGFR6124-72-58 18:20:00 Test Item Value Reference Range Interpretation Comments Magnesium Lvl (test code = Magnesium 1.9 1.8-2.4 N Lvl) [facility] HospitalJgyphgqOEOWGEUQE2032-79-20 18:20:00 Test Item Value Reference Range Interpretation Comments Globulin (test code = Globulin) 2.8 2.0-4.0 N [facility] HospitalWxcpoxnQREMKRCCK0948-46-91 18:20:00 Test Item Value Reference Range Interpretation Comments A/G Ratio (test code = A/G Ratio) 1.2 0.7-1.6 N [facility] HospitalJwsqequRLOAZOQFP3871-15-46 18:20:00 Test Item Value Reference Range Interpretation Comments AGAP (test code = AGAP) 12.2 10.0-20.0 N [facility] HospitalDumtpagKEJCVHYRG9949-57-95 18:20:00 Test Item Value Reference Range Interpretation Comments B/C Ratio (test code = B/C Ratio) 14 6-25 N [facility] HospitalTmttzprDWXZIWSEM2812-80-64 18:20:00 Test Item Value Reference Range Interpretation Comments Bili Total (test code = Bili Total) 0.3 0.2-1.3 N [facility] HospitalTmgndacKLCTBRAPA3389-45-49 18:20:00 Test Item Value Reference Range Interpretation Comments AST (test code = AST) 7 See_Comment N [Auto mated message] The system which ge nerated this result transmit max reference range : <=37. The reference range was not used to interpr et this result as luis l/abnormal. [facility] HospitalErlhcgnCDNIAHYED1991-22-11 18:20:00 Test Item Value Reference Range Interpretation Comments Albumin Lvl (test code = Albumin Lvl) 3.5 3.5-5.0 N [facility] HospitalTxidahsHCNJJIIXB7021-91-51 18:20:00 Test Item Value Reference Range Interpretation Comments ALT (test code = ALT) 7 See_Comment N [Auto mated message] The system which ge nerated this result transmit max reference range : <=65. The reference range was not used to interpr et this result as luis l/abnormal. [facility] HospitalTuufzblJFHMTZASU5324-56-23 18:20:00 Test Item Value Reference Range Interpretation Comments Alk Phos (test code = Alk Phos) 54 39-136 N [facility] HospitalMddwjcuGNTKFKFHB2106-34-04 18:20:00 Test Item Value Reference Range Interpretation Comments Total Protein (test code = Total 6.3 6.4-8.4 L Protein) [facility] HospitalQryifmcRIKQZBXAK5422-13-90 18:20:00 Test Item Value Reference Range Interpretation Comments CO2 (test code = CO2) 26 24-32 N [facility] HospitalBjinutiFHREGBQXA2688-18-25 18:20:00 Test Item Value Reference Range Interpretation Comments Calcium Lvl (test code = Calcium Lvl) 8.7 8.5-10.5 N [facility] HospitalRychmlsUGMGIZKDH4319-11-83 18:20:00 Test Item Value Reference Range Interpretation Comments Sodium Lvl (test code = Sodium Lvl) 139 135-145 N [facility] HospitalDoyjrsmUBLNCNHZZ9965-78-72 18:20:00 Test Item Value Reference Range Interpretation Comments Potassium Lvl (test code = Potassium 4.2 3.5-5.1 N Lvl) [facility] HospitalDggidoiJMUFSAABV4356-79-57 18:20:00 Test Item Value Reference Range Interpretation Comments Chloride Lvl (test code = Chloride Lvl) 105 95-109 N [facility] HospitalZkotwauLJFBHFLUE5943-82-67 18:20:00 Test Item Value Reference Range Interpretation Comments Glucose Lvl (test code = Glucose Lvl) 111 70-99 H [facility] HospitalQxuuxoiKSSTBMUFJ4660-58-80 18:20:00 Test Item Value Reference Range Interpretation Comments BUN (test code = BUN) 11 7-22 N [facility] HospitalRzqnwxeYUHEKOPIF2810-51-44 18:20:00 Test Item Value Reference Range Interpretation Comments Creatinine Lvl (test code = Creatinine 0.8 0.5-1.4 N Lvl) [facility]WptxwroKJVRGTYPCM7121-04-75 18:20:00 Test Item Value Reference Range Interpretation Comments Eosinophils (test code = 0.7 See_Comment N [A utomated message] The Eosinophils) system which ge nerated this result tra nsmitted reference range : <=4.0. The reference r javier was not used to int erpret this result as normal/abnormal . [facility] HospitalHkoewmjQJGNUGSPHO5393-19-24 18:20:00 Test Item Value Reference Range Interpretation Comments Basophils (test code = 0.1 See_Comment N [Aut omated message] The Basophils) system which ge nerated this result tra nsmitted reference range : <=1.0. The reference r javier was not used to int erpret this result as normal/abnormal . [facility] HospitalAeawsjbBWPWRUCBHJ9900-72-41 18:20:00 Test Item Value Reference Range Interpretation Comments Eosinophils # (test code 0.0 See_Comment N [A utomated message] The = Eosinophils #) system whic h generated this result tra nsmitted reference range : <=0.5. The reference r javier was not used to int erpret this result as normal/abnormal . [facility] HospitalZbfgqmkHLSJVCKRQU0475-93-73 18:20:00 Test Item Value Reference Range Interpretation Comments Basophils # (test code 0.0 See_Comment N [Aut omated message] The = Basophils #) system which generated this result tra nsmitted reference range : <=0.2. The reference r javier was not used to int erpret this result as normal/abnormal . [facility] HospitalOnxutoeFKOXTIXNXB9729-22-65 18:20:00 Test Item Value Reference Range Interpretation Comments INR (test code = INR) 0.92 0.85-1.17 N [facility] HospitalWlqlvzkSEIKFHQWOM1163-03-89 18:20:00 Test Item Value Reference Range Interpretation Comments PT (test code = PT) 12.4 s 12.0-14.7 N [facility]udaSbiajcrAULMOSGILW4657-03-58 18:20:00 Test Item Value Reference Range Interpretation Comments Prealbumin (test code = Prealbumin) 19.9 18.0-45.0 N [facility]
[2023-04-05] MEDS ORDERED: FENTANYL CITR 100 MCG/2 ML ONE (17:52)
[2023-04-05] MEDS ORDERED: NA CHLORIDE 0.9% 2,000 ML ONE (17:53)
[2023-04-05 18:22] LABS: Absolute Lymphocytes (CBC) 1.1 K/uL (0.7-4.9); Hematocrit 39.6 % (36.0-45.0); Lymphocytes % 18.5 % (15.3-44.8); MCV 89.7 fL (80-100); MPV 7.3 fL (7.6-11.3); Platelets 215 thou/uL (152-406); RBC Red Blood Cell Count 4.42 M/uL (3.86-4.86)
[2023-04-05] MEDS ORDERED: PROMETHAZINE INJ 25 MG/ML AMP ONE (18:30)
[2023-04-05 18:31] LABS: Protime INR 0.95
[2023-04-05] MEDS ORDERED: CLINDAMYCIN 600MG/D5W 50 ML IV ONE (19:14)
[2023-04-05 19:34] LABS: Albumin 3.5 g/dL (3.4-5.0); Bilirubin Total 0.2 mg/dL (0.2-1.0); Potassium 4.1 mEq/L (3.5-5.1); Protein, Total 6.8 g/dL (6.4-8.2)
[2023-04-05] MEDS ORDERED: KETOROLAC 30 MG/ML INJ ONE (19:59)
--- NOTE | 2023-04-05 20:58 | RAD REPORT ---
EXAM DESCRIPTION: CT - Soft Tissue Neck W/Contr CLINICAL HISTORY: r/o osteo mandible COMPARISON: C Spine Wo Con dated 09/17/2020; Head C Spine Mpr Wo Con dated 12/02/2018; CT HEAD CSPINE MPR WO CONTRAST dated 07/23/2011 TECHNIQUE: Thin axial CT images of the neck, performed following intravenous administration of 70 m L mL Isovue-300. Multiplanar reformats were generated and reviewed. All CT scans are performed using dose optimization technique as appropriate and may include automated exposure control or mA/KV adjustment according to patient size. FINDINGS: Nasopharyngeal tissues are normal in appearance. Fossa Rosenmller are normal. Parapharyngeal fat triangles are symmetric. Tongue base structures are normal. Epiglottis and aryepiglottic folds are normal. Piriform sinuses are well aerated. The vocal cords are normal in appearance. Mildly prominent right level 1 B lymph nodes, largest measuring 9 millimeter in short axis, likely re active/inflammatory. Salivary glands are normal in appearance. Periapical collections most notably at the roots of the right mandibular canine and second premolar, with extensive other carious changes. No significant adjacent inflammatory changes or subperiosteal f luid collections. Upper lung coburn are clear. Included intracranial contents are unremarkable. IMPRESSION: Dental and periodontal disease with right mandibular periapical collections suggesting s mall abscesses. No overlying soft tissue inflammatory changes. No other acute abnormality. No suspicious mucosal mass or adenopathy.
--- NOTE | 2023-04-05 21:05 | EDPHYS ---
Physician Documentation [facility] Name: Maribel Soto Age: 58 yrs Sex: Female : 1965 Arrival Date: 04/05/2023 Time: 16:49 Bed 15 Private MD: ED Physician Boom Burton HPI: 04/05 17:57 This 58 yrs old Female presents to ER via Ambulatory with complaints of Toothache, Jaw snw Pain - infection. 17:57 The patient presents with pain, redness, swelling. The problem is located in the right snw mandible. Onset: The symptoms/episode began/occurred acutely. Duration: The symptoms are continuous, and are steadily getting worse. Associated signs and symptoms: Pertinent positives: pain, redness in area, swelling. Severity of symptoms: At their worst the symptoms were moderate. The patient has not experienced similar symptoms in the past. saw Dentist at [facility] yesterday, abscess opened, pt started on Clindamycin. Historical: - Allergies: 16:56 Baclofen; ll1 16:56 Bactrim; ll1 16:56 Opana; ll1 16:56 PENICILLINS; ll1 16:56 Zofran; ll1 - PMHx: 16:56 Anxiety; Asthma; Asthma; Chronic pain; Chronic pain; Diverticulitis; Diverticulitis; ll1 Fibromyalgia; Fibromyalgia; Bryce; Lupus; Migraines; Seizures; Ulcers; - Immunization history:: Adult Immunizations up to date. - Social history:: Smoking status: Patient denies any tobacco usage or history of. ROS: 17:57 Constitutional: Negative for fever, chills, and weight loss, Eyes: Negative for injury, snw pain, redness, and discharge, Cardiovascular: Negative for chest pain, palpitations, and edema, Respiratory: Negative for shortness of breath, cough, wheezing, and pleuritic chest pain, Abdomen/GI: Negative for abdominal pain, nausea, vomiting, diarrhea, and constipation, Back: Negative for injury and pain, : Negative for injury, bleeding, discharge, and swelling, MS/Extremity: Negative for injury and deformity, Skin: Negative for injury, rash, and discoloration, Neuro: Negative for headache, weakness, numbness, tingling, and seizure, Psych: Negative for depression, anxiety, suicide ideation, homicidal ideation, and hallucinations, 17:57 ENT: Positive for dental pain, swelling, tenderness, right mandible, Exam: 18:00 Constitutional: This is a well developed, well nourished patient who is awake, alert, snw and in no acute distress. 18:00 Eyes: Pupils equal round and reactive to light, extra-ocular motions intact. Lids and lashes normal. Conjunctiva and sclera are non-icteric and not injected. Cornea within normal limits. Periorbital areas with no swelling, redness, or edema. Neck: Trachea midline, no thyromegaly or masses palpated, and no cervical lymphadenopathy. Supple, full range of motion without nuchal rigidity, or vertebral point tenderness. No Meningismus. Chest/axilla: Normal chest wall appearance and motion. Nontender with no deformity. No lesions are appreciated. Cardiovascular: Regular rate and rhythm with a normal S1 and S2. No gallops, murmurs, or rubs. Normal PMI, no JVD. No pulse deficits. Respiratory: Lungs have equal breath sounds bilaterally, clear to auscultation and percussion. No rales, rhonchi or wheezes noted. No increased work of breathing, no retractions or nasal flaring. Abdomen/GI: Soft, non-tender, with normal bowel sounds. No distension or tympany. No guarding or rebound. No evidence of tenderness throughout. Back: No spinal tenderness. No costovertebral tenderness. Full range of motion. 18:00 MS/ Extremity: Pulses equal, no cyanosis. Neurovascular intact. Full, normal range of motion. Neuro: Awake and alert, GCS 15, oriented to person, place, time, and situation. Cranial nerves II-XII grossly intact. Motor strength 5/5 in all extremities. Sensory grossly intact. Cerebellar exam normal. Normal gait. Psych: Awake, alert, with orientation to person, place and time. Behavior, mood, and affect are within normal limits. 18:00 Head/face: Noted is swelling, tenderness, that is moderate, of the right jaw, 18:00 ENT: Dental exam: pain, that is moderate, swelling to right mandible, 18:00 Skin: Appearance: Color: pale, Moisture: dry, Vital Signs: 17:07 BP 145 / 95; Pulse 83; Resp 17; Temp 98.1; Pulse Ox 100% ; Weight 113.4 kg; Height 5 ll1 ft. 9 in. ; Pain 9/10; 18:20 BP 132 / 73; Pulse 80; Resp 18; Pulse Ox 98% on R/A; mb9 20:15 BP 133 / 99; Pulse 79; Resp 16; Pulse Ox 100% ; jb4 17:07 Body Mass Index 36.92 (113.40 kg, 175.26 cm) ll1 17:07 Pain Scale: Adult ll1 MDM: 17:02 Patient medically screened. snw 18:01 Differential diagnosis: dental caries, dental abscess, mandible osteo. Data reviewed: [facility] vital signs, nurses notes. 18:05 I considered the following discharge prescriptions or medication management in the [facility] emergency department Medications were administered in the Emergency Department. See JUL. 19:57 Awaiting: pt in CT. w 21:03 Counseling: I had a detailed discussion with the patient and/or guardian regarding the [facility] historical points, exam findings, and any diagnostic results supporting the discharge/admit diagnosis, lab results, radiology results, the need for outpatient follow up, for definitive care, a dentist, to return to the emergency department if symptoms worsen or persist or if there are any questions or concerns that arise at home. Special discussion: I have referred the patient to see his PCP for further evaluation of high blood pressure. Based on the history and exam findings, there is no indication for further emergent testing or inpatient evaluation. I discussed with the patient/guardian the need to see a dentist for further evaluation of the symptoms. I discussed with the patient/guardian the need to see the primary care provider for further evaluation of the symptoms. 04/05 17:22 Order name: Blood Culture Adult (2) [facility] 04/05 17:22 Order name: CBC with Diff; Complete Time: 18:24 snw 04/05 17:22 Order name: CMP; Complete Time: 19:34 snw 04/05 17:22 Order name: Lactate w/ 2H reflex if indic.; Complete Time: 18:39 snw 04/05 17:22 Order name: Protime (+inr); Complete Time: 18:31 snw 04/05 17:22 Order name: Ptt, Activated; Complete Time: 18:31 snw 04/05 17:22 Order name: Soft Tissue Neck W/Contr CT; Complete Time: 21:01 snw 04/05 21:03 Interpretation: Abnormal: no airway compromise concerns . snw 04/05 17:22 Order name: EKG; Complete Time: 17:22 snw 04/05 17:22 Order name: Accucheck; Complete Time: 17:55 snw 04/05 17:22 Order name: Cardiac monitoring; Complete Time: 17:32 snw 04/05 17:22 Order name: EKG - Nurse/Tech; Complete Time: 17:55 snw 04/05 17:22 Order name: IV Saline Lock - Large Bore; Complete Time: 18:12 snw 04/05 17:22 Order name: Labs collected and sent; Complete Time: 18:12 snw 04/05 17:22 Order name: O2 Per Protocol; Complete Time: 17:32 snw 04/05 17:22 Order name: O2 Sat Monitoring; Complete Time: 17:32 snw 04/05 17:22 Order name: Vital Signs; Complete Time: 17:32 snw 04/05 18:43 Order name: Labs - recollect needed: RECOLLECT CHEMISTRIES; Complete Time: 18:54 eb Administered Medications: 18:14 Drug: Promethazine IVP 12.5 mg IVP once Route: IVP; Site: right upper arm; mb9 18:53 Follow up: Response: No adverse reaction mb9 18:19 Drug: fentaNYL (PF) IVP 25 mcg IVP once Route: IVP; Site: right upper arm; mb9 18:53 Follow up: Response: No adverse reaction mb9 18:20 Drug: NS 0.9% IV (30 ml/kg) 30 ml/kg IV at bolus once; Sepsis Protocol Route: IV; Rate: mb9 bolus; Site: right upper arm; 19:16 Drug: Clindamycin IVPB 600 mg IVPB once over 30 mins; (mix in 50 mL) Route: IVPB; jb4 Infused Over: 30 mins; Site: Port-a-cath; 19:51 Drug: Ketorolac IVP 15 mg IVP once Route: IVP; Site: Port-a-cath; jb4 Disposition Summary: 04/05/23 21:05 Discharge Ordered Notes: Continue clindamycin. Location: Home snw Condition: Stable snw Diagnosis - Dental caries, unspecified - extensive snw Followup: snw - With: Emergency Department - When: As needed - Reason: Worsening of condition Followup: snw - With: Private Physician - When: 2 - 3 days - Reason: Recheck today's complaints, Continuance of care, Re-evaluation by your physician Discharge Instructions: - Discharge Summary Sheet snw - Dental Caries, Adult snw - Dental Pain snw - Preventive Dental Care, Adult snw Forms: - Medication Reconciliation Form snw - Thank You Letter snw - Antibiotic Education snw - Prescription Opioid Use snw - Patient Portal Instructions snw - Leadership Thank You Letter snw Prescriptions: - Mobic 7.5 mg Oral Tablet - take 1 tablet ORAL route once daily take with food; 20 tablet; Refills: 0, snw Product Selection Permitted Addendum: 04/08/2023 07:24 I was immediately available for consultation during this patient's visit. I did not e c2 personally see the patient or guide the patient's care.. Signatures: Dispatcher [employer] EDYaima Mcdaniel, ANNA-C DEBT RECOVERY OFFICER-Csnw Camilo Krause RN RN jb4 Brittney Mcdowell Lynsay, RN RN ll1 Snow Harper RN RN mb9 Boom Burton MD MD ec2 Corrections: (The following items were deleted from the chart) 04/05 21:03 21:02 Abnormal: no airway compromise concerns. snw snw
--- NOTE | 2023-04-05 21:05 | ER ---
Nurse's Notes [facility] Name: Maribel Soto Age: 58 yrs Sex: Female : 1965 Arrival Date: 04/05/2023 Time: 16:49 Bed 15 Private MD: Diagnosis: Dental caries, unspecified-extensive Presentation: 04/05 17:07 Chief complaint: Patient states: R lower jaw tooth pain since Friday. Her dentist ll1 tried to drain the area yesterday. On antibiotics since yesterday. Swelling is better, but pain and redness are getting worse. Coronavirus screen: Client denies travel out of the [place] in the last 14 days. At this time, the client does not indicate any symptoms associated with coronavirus-19. Ebola Screen: Patient denies travel to an Ebola-affected area in the 21 days before illness onset. Initial Sepsis Screen: Does the patient meet any 2 criteria? No. Patient's initial sepsis screen is negative. Does the patient have a suspected source of infection? Yes: Other: tooth infection. Risk Assessment: Do you want to hurt yourself or someone else? Patient reports no desire to harm self or others. Onset of symptoms was April 02, 2023. 17:07 Method Of Arrival: Ambulatory ll1 17:07 Acuity: LILIAN 2 ll1 Triage Assessment: 17:07 General: Appears uncomfortable, ill, Behavior is calm, cooperative, appropriate for ll1 age. Pain: Complains of pain in R lower jaw Pain currently is 9 out of 10 on a pain scale. Quality of pain is described as aching, throbbing. EENT: Reports pain in right cheek. Derm: Reports redness to R jaw area extending into R side of neck. Historical: - Allergies: 16:56 Baclofen; ll1 16:56 Bactrim; ll1 16:56 Opana; ll1 16:56 PENICILLINS; ll1 16:56 Zofran; ll1 - PMHx: 16:56 Anxiety; Asthma; Asthma; Chronic pain; Chronic pain; Diverticulitis; Diverticulitis; ll1 Fibromyalgia; Fibromyalgia; Bryce; Lupus; Migraines; Seizures; Ulcers; - Immunization history:: Adult Immunizations up to date. - Social history:: Smoking status: Patient denies any tobacco usage or history of. Screenin:57 [facility] ED Fall Risk Assessment (Adult) History of falling in the last 3 months, mb9 including since admission No falls in past 3 months (0 pts) Confusion or Disorientation No (0 pts) Intoxicated or Sedated No (0 pts) Impaired Gait No (0 pts) Mobility Assist Device Used No (0 pt) Altered Elimination No (0 pt) Score/Fall Risk Level 0 - 2 = Low Risk Oriented to surroundings, Maintained a safe environment, Assessed \T\ reinforced patient's understanding of fall precautions. Abuse screen: Denies threats or abuse. Nutritional screening: No deficits noted. Tuberculosis screening: No symptoms or risk factors identified. Assessment: 17:55 General: Appears uncomfortable, ill, Behavior is cooperative. Pain: Complains of pain mb9 in right cheek Pain currently is 10 out of 10 on a pain scale. Quality of pain is described as throbbing. Neuro: Frye Agitation-Sedation Scale (RASS): 0 - Alert and Calm Level of Consciousness is awake, alert, obeys commands, Oriented to person, place, time, situation, Appropriate for age. Cardiovascular: Heart tones S1 S2 present Patient's skin is warm and dry. Respiratory: Airway is patent Respiratory effort is even, unlabored, Respiratory pattern is regular, symmetrical, Breath sounds are clear bilaterally. GI: Reports nausea. : No signs and/or symptoms were reported regarding the genitourinary system. EENT: Oral mucosa is moist. Derm: erythema noted to right cheek and neck. Musculoskeletal: Range of motion: intact in all extremities, Swelling present in right cheek. 19:00 Reassessment: Patient appears in no apparent distress at this time. Patient and/or jb4 family updated on plan of care and expected duration. Pain level reassessed. Patient is alert, oriented x 3, equal unlabored respirations, skin warm/dry/pink. 20:45 Reassessment: Patient appears in no apparent distress at this time. Patient and/or jb4 family updated on plan of care and expected duration. Pain level reassessed. Patient is alert, oriented x 3, equal unlabored respirations, skin warm/dry/pink. Vital Signs: 17:07 BP 145 / 95; Pulse 83; Resp 17; Temp 98.1; Pulse Ox 100% ; Weight 113.4 kg; Height 5 ll1 ft. 9 in. ; Pain 9/10; 18:20 BP 132 / 73; Pulse 80; Resp 18; Pulse Ox 98% on R/A; mb9 20:15 BP 133 / 99; Pulse 79; Resp 16; Pulse Ox 100% ; jb4 17:07 Body Mass Index 36.92 (113.40 kg, 175.26 cm) ll1 17:07 Pain Scale: Adult [facility] ED Course: 16:52 Patient arrived in ED. im 16:56 Arm band placed on. ll1 17:02 Yaima Keene FNP-C [facility]. snw 17:02 Boom Burton MD is Attending Physician. snw 17:09 Triage completed. ll1 17:26 Snow Harper, JAYDEN is Primary Nurse. mb9 17:30 EKG done, by ED staff, reviewed by Yaima MORE. mb9 17:56 Placed in gown. Bed in low position. Call light in reach. Side rails up X 1. Client mb9 placed on continuous cardiac and pulse oximetry monitoring. NIBP monitoring applied. environmental monitoring technician on. 17:57 No provider procedures requiring assistance completed. Missed attempt(s): 22 gauge in mb9 right forearm. Bleeding controlled, band aid applied, catheter tip intact. 18:10 Inserted saline lock: 22 gauge in right upper arm, using aseptic technique. aa5 18:20 CBC with Diff Sent. mb9 18:20 CMP Sent. mb9 18:20 Protime (+inr) Sent. mb9 18:20 Ptt, Activated Sent. mb9 18:31 Blood Culture Adult (2) Sent. mb9 19:05 Report given to JAYDEN Antonio. mb9 19:05 Accessed Port-a-Cath. using 20G Nexia IV catheter ,sterile technique, per hospital mb9 protocol. Clean \T\ dry. Dressing intact. Good blood return. Flushes easily. 20:22 Soft Tissue Neck W/Contr CT In Process Unspecified. EDMS 21:04 Boom Burton MD is Referral Physician. snw 21:48 Provided Education on: prescription. pf1 Administered Medications: 18:14 Drug: Promethazine IVP 12.5 mg IVP once Route: IVP; Site: right upper arm; mb9 18:53 Follow up: Response: No adverse reaction mb9 18:19 Drug: fentaNYL (PF) IVP 25 mcg IVP once Route: IVP; Site: right upper arm; mb9 18:53 Follow up: Response: No adverse reaction mb9 18:20 Drug: NS 0.9% IV (30 ml/kg) 30 ml/kg IV at bolus once; Sepsis Protocol Route: IV; Rate: mb9 bolus; Site: right upper arm; 19:16 Drug: Clindamycin IVPB 600 mg IVPB once over 30 mins; (mix in 50 mL) Route: IVPB; jb4 Infused Over: 30 mins; Site: Port-a-cath; 19:51 Drug: Ketorolac IVP 15 mg IVP once Route: IVP; Site: Port-a-cath; jb4 Medication: 17:57 VIS not applicable for this client. mb9 Outcome: 21:05 Discharge ordered by MD. li 21:50 Patient left the ED. pf1 Signatures: Dispatcher [employer] EDMS Yaima Keene, FLATWORK PRESSER-C FLATWORK PRESSER-Csnw Claribel Marshall RN RN aa5 Camilo Krause RN RN jb4 Compa Harrison RN RN ll1 Snow Harper, RN RN mb9 Joya Gomez RN RN pf1 Marla Zamora Corrections: (The following items were deleted from the chart) 17:34 17:07 Acuity: LILIAN 3 ll1 ll1
[2023-04-05] MEDS ORDERED: HEPARIN 500 UNIT/5 ML SYR IV ONE (21:41)
[2023-04-05 21:59] VITALS: TEMP 98.1
[2023-04-05 22:15] VITALS: BP 133/99; O2SAT 100
--- NOTE | 2023-04-09 17:35 | EKG ---
Test Date: 2023-04-05 Test Time: 17:35:43 Filler Picker: BREANN MEASUREMENT RESULTS: Intervals: Rate: 80 LA: 196 QRSD: 84 QT: 390 QTc: 449 [place]: P: 40 LA: 196 QRS: 9 T: 32 INTERPRETIVE STATEMENTS: Normal sinus rhythm Normal ECG Compared to ECG 09/30/2022 19:49:19 No significant changes Electronically Signed On 04-09-23 17:26:04 BANK SECRECY ACT OFFICER by Sukumar Kilgore
== END 2023-04-05 21:50 | disposition home or self-care (01) ==
LOC: ER 16:49
DX: K02.9 Dental caries, unspecified (principal); K08.89 Other specified disorders of teeth and supporting structures; R68.84 Jaw pain; Z88.0 Allergy status to penicillin; Z88.8 Allergy status to other drugs, medicaments and biological substances
CPT/HCPCS: 93005; 87040; 85025; 36415; 85610; 83605; 85730; 80053; 70491; 99285; Q9967; J2550; J3010; J1642; J7030

== ENCOUNTER → 2023-08-13 | Emergency (ER) | payer OTHER ==
[~2023-08-13] MED LIST: methocarbamoL 500 MG TAB ONE
--- NOTE | 2023-08-13 09:54 | RAD REPORT ---
EXAM DESCRIPTION: CT - C Spine Wo Con - 08/13/2023 9:32 am CLINICAL HISTORY: Fall COMPARISON: None. TECHNIQUE: Axial thin cut noncontrast CT images of the cervical spine were obtained with sagittal an d coronal reconstruction images generated and reviewed. All CT scans are performed using dose optimization technique as appropriate and may include automated exposure control or mA/KV adjustment according to patient size. FINDINGS: Cervical body height and alignment are normal. Straightening of normal cervical lordosis w hich may be positional or secondary to muscle spasm. No disk space narrowing. No fracture or acute ny abnormality. Mild degenerative changes with mild degrees of disc height loss at C5-6 and C6-7, and mild degrees of neural foraminal narrowing bilaterally at those levels predominantly due to uncovertebral joint spur ring. No paraspinal mass or hematoma. IMPRESSION: No acute traumatic cervical spine fracture or subluxation. Mild degenerative changes as above. .
--- NOTE | 2023-08-13 10:02 | RAD REPORT ---
EXAM DESCRIPTION: CT - Spine Lumbar Wo Con - 08/13/2023 9:33 am CLINICAL HISTORY: fall COMPARISON: Spine Lumbar Wo Con dated 06/10/2021 TECHNIQUE: Axial noncontrast CT imaging of the lumbar spine was performed with coronal and sagittal re-formatted images. All CT scans are performed using dose optimization technique as appropriate and may include automated exposure control or mA/KV adjustment according to patient size. FINDINGS: No acute lumbar spine fracture seen. No aggressive marrow pattern or malalignment. Paraspinal tissues are normal in thickness. No paraspinal abscess or hematoma seen. Intervertebral disc disease assessment is inherently limited by CT. Within these limitations, no high -grade canal stenosis suspected. Broad-based posterior disc bulges at L3-4 and L4-5. Mild left neural foraminal narrowing at L5-S1 due to disc protrusion and endplate remodeling Few Schmorl's nodes are noted. Anastomotic suture line along the distal colon/rectum suggesting sequelae of prior resection. IMPRESSION: No acute osseous abnormality. Mild degenerative changes as above. Please consider MRI follow-up for assessment of disc disease and neural impingement if clinically indicated.
--- NOTE | 2023-08-13 10:34 | RAD REPORT ---
EXAM DESCRIPTION: RAD - Pelvis - 08/13/2023 9:47 am CLINICAL HISTORY: fall COMPARISON: Foot Left 3 View dated 03/24/2020; Foot Left 3 View dated 02/10/2018Pelvis dated 10/30/2020 Pelvis dated 10/30/2020 TECHNIQUE: Single AP view of the pelvis. FINDINGS: The visualized pelvic ring is intact. No suspicious osseous lesions. No significant degene rative changes or erosions of the hip joints. Other pelvic joints are unremarkable. Visualized aspect s of the abdomen and soft tissues are unremarkable. IMPRESSION: No acute osseous abnormality of the bony pelvis.
--- NOTE | 2023-08-13 10:34 | RAD REPORT ---
EXAM DESCRIPTION: RAD - Foot Left 3 View - 08/13/2023 9:47 am CLINICAL HISTORY: fall COMPARISON: <Comparisons> TECHNIQUE: Left foot, 3 views. FINDINGS: No fracture, dislocation or periosteal reaction. Scattered mild degenerative changes. Mode rate calcaneal spur. No air or foreign body in the soft tissues. IMPRESSION: Scattered mild degenerative changes. No acute osseous abnormality.
--- NOTE | 2023-08-13 10:36 | ER ---
Nurse's Notes [facility] Name: Maribel Soto Age: 58 yrs Sex: Female : 1965 Arrival Date: 08/13/2023 Time: 08:34 Bed 14 Private MD: Diagnosis: Fall on same level, unspecified;Pain in left hip;Low back pain;Pain in left foot Presentation: 08/12 08:46 Chief complaint: Patient states: [place] dizzy last night when picking something up and ll1 fell onto L side. No LOC or head injury. L arm, L back, L hip, L leg pain since. Neck pain now also. Coronavirus screen: Vaccine status: Patient reports being unvaccinated. Client denies travel out of the [place] in the last 14 days. At this time, the client does not indicate any symptoms associated with coronavirus-19. Ebola Screen: Patient denies travel to an Ebola-affected area in the 21 days before illness onset. Initial Sepsis Screen: Does the patient meet any 2 criteria? No. Patient's initial sepsis screen is negative. Does the patient have a suspected source of infection? No. Patient's initial sepsis screen is negative. Risk Assessment: Do you want to hurt yourself or someone else? Patient reports no desire to harm self or others. Onset of symptoms was August 12, 2023. 08:46 Method Of Arrival: Ambulatory ll1 08:46 Acuity: LILIAN 3 ll1 Triage Assessment: 08:48 General: Appears uncomfortable, Behavior is calm, cooperative, appropriate for age. ll1 Pain: Complains of pain in L sode of body Quality of pain is described as aching. Musculoskeletal: Circulation, motion, and sensation intact. Capillary refill < 3 seconds, Reports pain in L side of body. Injury Description: Bruise. Historical: - Allergies: 08:48 Baclofen; ll1 08:48 Bactrim; ll1 08:48 Opana; ll1 08:48 PENICILLINS; ll1 08:48 Zofran; ll1 - PMHx: 08:48 Anxiety; Asthma; Chronic pain; Diverticulitis; Fibromyalgia; Bryce; Lupus; ll1 Migraines; Seizures; Ulcers; - Immunization history:: Adult Immunizations up to date. - Social history:: Smoking status: Patient denies any tobacco usage or history of. Screenin:59 [facility] ED Fall Risk Assessment (Adult) History of falling in the last 3 months, ld1 including since admission No falls in past 3 months (0 pts). Abuse screen: Denies threats or abuse. Denies injuries from another. Nutritional screening: No deficits noted. Tuberculosis screening: No symptoms or risk factors identified. Assessment: 08:58 General: Appears in no apparent distress. comfortable, Behavior is calm, cooperative, ld1 appropriate for age. Pain: Complains of pain in left hand, left arm, left leg and neck Pain does not radiate. Pain currently is 7 out of 10 on a pain scale. Quality of pain is described as throbbing, Pain began 1 day ago. Is continuous. Neuro: Level of Consciousness is awake, alert, obeys commands, Oriented to person, place, time, situation. Cardiovascular: Capillary refill < 3 seconds Patient's skin is warm and dry. Respiratory: Airway is patent Respiratory effort is even, unlabored. GI: Abdomen is flat, non-distended. : No signs and/or symptoms were reported regarding the genitourinary system. EENT: No signs and/or symptoms were reported regarding the EENT system. Derm: No signs and/or symptoms reported regarding the dermatologic system. Musculoskeletal: No signs and/or symptoms reported regarding the musculoskeletal system. 10:37 Reassessment: Patient and/or family updated on plan of care and expected duration. Pain mb9 level reassessed. Patient is alert, oriented x 3, equal unlabored respirations, skin warm/dry/pink. Patient states feeling better. Patient states symptoms have improved. Vital Signs: 08:46 BP 136 / 105; Pulse 88; Resp 17; Temp 98; Pulse Ox 100% ; Weight 113.4 kg; Height 5 ft. ll1 9 in. ; Pain 9/10; 09:03 BP 144 / 109; Pulse 87; Resp 18; Pulse Ox 100% on R/A; Pain 8/10; ld1 10:37 BP 128 / 99; Pulse 80; Resp 16; Pulse Ox 100% on R/A; mb9 08:46 Body Mass Index 36.92 (113.40 kg, 175.26 cm) ll1 08:46 Pain Scale: Adult ll1 09:03 Pain Scale: Adult ld1 ED Course: 08:38 Patient arrived in ED. im 08:48 Triage completed. ll1 08:49 Arm band placed on Patient placed in an exam room, on a stretcher. ll1 08:55 Lidia Reyes, RN is Primary Nurse. ld1 08:59 Patient has correct armband on for positive identification. Placed in gown. Bed in low ld1 position. Call light in reach. Side rails up X2. Pulse ox on. NIBP on. Door closed. Noise minimized. Warm blanket given. 08:59 No provider procedures requiring assistance completed. ld1 09:08 Boom Burton MD is Attending Physician. ec2 09:34 CT C Spine In Process Unspecified. EDMS 09:34 CT Lumbar Spine Wo Con In Process Unspecified. EDMS 09:39 Pelvis XRAY In Process Unspecified. EDMS 09:39 Foot Left 3 View XRAY In Process Unspecified. EDMS 09:50 Patient moved back from CT. mb9 10:42 IV discontinued, intact, bleeding controlled, No redness/swelling at site. Pressure mb9 dressing applied. Administered Medications: 09:48 Drug: Methocarbamol PO 500 mg PO once Route: PO; ld1 10:37 Follow up: Response: No adverse reaction mb9 Medication: 10:43 VIS not applicable for this client. mb9 Outcome: 10:35 Discharge ordered by . ec2 10:42 Discharged to home ambulatory, mb9 10:42 Condition: stable 10:42 Discharge instructions given to patient, Instructed on discharge instructions, follow up and referral plans. Demonstrated understanding of instructions, follow-up care, medications, Prescriptions given X 1, 10:43 Patient left the ED. mb9 Signatures: Dispatcher [employer] Compa Novak RN RN ll1 Lidia Reyes, RN RN ld1 Snow Harper RN RN mb9 Marla Zamora Boom Burton MD MD ec2
--- NOTE | 2023-08-13 10:36 | EDPHYS ---
Physician Documentation [facility] Name: Maribel Soto Age: 58 yrs Sex: Female : 1965 Arrival Date: 08/13/2023 Time: 08:34 Bed 14 Private MD: ED Physician Boom Burton HPI: 08/12 09:14 This 58 yrs old Female presents to ER via Ambulatory with complaints of Fall ec2 Injury, Arm Pain, Hip Pain - Left. 09:14 Patient arrives today for evaluation after a fall. Patient she was walking subsequently ec2 fell yesterday. No LOC, no head pain, no complaints of neck pain and low back pain. Patient reports no blood thinner use. No LOC, ambulated afterwards with some discomfort.. Historical: - Allergies: 08:48 Baclofen; ll1 08:48 Bactrim; ll1 08:48 Opana; ll1 08:48 PENICILLINS; ll1 08:48 Zofran; ll1 - PMHx: 08:48 Anxiety; Asthma; Chronic pain; Diverticulitis; Fibromyalgia; Bryce; Lupus; ll1 Migraines; Seizures; Ulcers; - Immunization history:: Adult Immunizations up to date. - Social history:: Smoking status: Patient denies any tobacco usage or history of. ROS: 09:14 Constitutional: as per hpi ec2 Exam: 09:14 Constitutional: GEN: No acute distress HEENT: -Head: no deformities -Eyes: EOMI CV: ec2 regular rate LUNGS: no respiratory distress ABD: non-tender SKIN: no wounds appreciated MSK: No C/T/L spine deformities, C-spine and L-spine TTP, no deformities or crepitus appreciated RUE w/o bony deformity LUE w/o bony deformity RLE w/o bony deformity LLE w/o bony deformity, dorsum of left foot with TTP, no deformities appreciated. NEURO: moves all extremities equally, GCS 15 (E4, V5, M6) Vital Signs: 08:46 BP 136 / 105; Pulse 88; Resp 17; Temp 98; Pulse Ox 100% ; Weight 113.4 kg; Height 5 ft. ll1 9 in. ; Pain 9/10; 09:03 BP 144 / 109; Pulse 87; Resp 18; Pulse Ox 100% on R/A; Pain 8/10; ld1 10:37 BP 128 / 99; Pulse 80; Resp 16; Pulse Ox 100% on R/A; mb9 08:46 Body Mass Index 36.92 (113.40 kg, 175.26 cm) ll1 08:46 Pain Scale: Adult ll1 09:03 Pain Scale: Adult ld1 MDM: 09:13 Patient medically screened. ec2 09:14 Data reviewed: vital signs. ED course: Patient arrives today for evaluation of multiple ec2 bony pains after a fall. Examination remarkable for MSK findings as above. Will obtain radiographs and CT images to evaluate for bony pathology.. 10:33 ED course: CT C-spine and CT L-spine with no acute traumatic process, degenerative ec2 joint disease noted. . 10:35 ED course: Pelvis and foot x-ray showed no bony fracture. Will discharge home with bony ec2 contusions. Return precautions given. . 08/12 09:14 Order name: CT C Spine; Complete Time: 10:33 ec2 08/12 09:14 Order name: CT Lumbar Spine Wo Con; Complete Time: 10:33 ec2 08/12 09:14 Order name: Pelvis XRAY; Complete Time: 10:35 ec2 08/12 09:14 Order name: Foot Left 3 View XRAY; Complete Time: 10:35 ec2 Administered Medications: 09:48 Drug: Methocarbamol PO 500 mg PO once Route: PO; ld1 10:37 Follow up: Response: No adverse reaction mb9 Disposition Summary: 08/13/23 10:35 Discharge Ordered Notes: Location: Home ec2 Condition: Stable ec2 Diagnosis - Fall on same level, unspecified ec2 - Pain in left hip ec2 - Low back pain ec2 - Pain in left foot ec2 Followup: ec2 - With: Private Physician - When: - Reason: Re-evaluation by your physician Discharge Instructions: - Discharge Summary Sheet ec2 - Acute Back Pain, Adult ec2 Forms: - Medication Reconciliation Form ec2 - Thank You Letter ec2 - Antibiotic Education ec2 - Prescription Opioid Use ec2 - Patient Portal Instructions ec2 - Leadership Thank You Letter ec2 Prescriptions: - methocarbamol 500 mg Oral tablet - take 2 tablets ORAL route 4 times per day; 20 tablet; Refills: 0, Product ec2 Selection Permitted Signatures: Dispatcher [employer] EDCompa Gonzales RN RN ll1 Lidia Reyes RN RN ld1 Boom Burton MD MD ec2 Snow Harper RN mb9
[2023-08-13 11:15] VITALS: BP 128/99; TEMP 98; O2SAT 100
== END ==
LOC: ER 08:34
DX: M25.552 Pain in left hip (principal); M54.50 Low back pain, unspecified; M79.672 Pain in left foot; W18.30XA Fall on same level, unspecified, initial encounter; Z88.0 Allergy status to penicillin; Z88.1 Allergy status to other antibiotic agents; Z88.8 Allergy status to other drugs, medicaments and biological substances
CPT/HCPCS: 72125; 72131; 72170

== ENCOUNTER 2023-12-20 11:38 | Inpatient (IN) | payer OTHER ==
[2023-12-20] MEDS ORDERED: ASPIRIN 81 MG CHEWABLE TABLET ONE (12:10)
[2023-12-20] MEDS ORDERED: PROMETHAZINE INJ 25 MG/ML AMP ONE (12:10)
[2023-12-20] MEDS ORDERED: NITROGLYCERIN 0.4 MG/TAB SL ONE (12:11)
[2023-12-20 12:45] LABS: Absolute Eosinophils 0.1 K/uL (0-0.5); Absolute Lymphocytes (CBC) 1.3 K/uL (0.7-4.9); Absolute Monocytes 0.5 K/uL (0.1-1.3); Absolute Neutrophil 3.2 K/uL (1.8-8.0); Basophils % 0.7 % (0-1.3); Eosinophils % 1.2 % (0-4.4); Hematocrit 39.4 % (36.0-45.0); Lymphocytes % 24.8 % (15.3-44.8); MCH 29.4 pg (27.0-35.0); MCHC 32.9 g/dL (32.0-36.0); MCV 89.4 fL (80-100); MPV 7.6 fL (7.6-11.3); Monocytes % 9.8 % (3.3-12.3); Neutrophils % 63.5 % (41.7-73.7); Platelets 234 thou/uL (152-406); RBC Red Blood Cell Count 4.41 M/uL (3.86-4.86); Red Cell Distribution Width 13.9 % (12.1-15.2)
[2023-12-20 13:02] LABS: ALT/SGPT 19 U/L (13-56); AST/SGOT 11 U/L (15-37); Albumin 3.8 g/dL (3.4-5.0); Albumin/Globulin Ratio 1.1 (1.1-1.8); Alkaline Phosphatase 112 U/L (45-117); BUN Blood Urea Nitrogen 18 mg/dL (7-18); Bicarbonate 25 mEq/L (21-32); Bilirubin Total 0.3 mg/dL (0.2-1.0); Globulin 3.4 g/dL (2.3-3.5); Glomerular Filtration Rate 42 ml/min (=/>90); Glucose Level 115 mg/dL (74-106); Magnesium 1.7 mg/dL (1.6-2.4); NT PRO-BNP 101 pg/mL (<125); Protein, Total 7.2 g/dL (6.4-8.2); Sodium Level 137 mEq/L (136-145); Troponin High Sensitivity 5.2 pg/mL (<58.9)
[2023-12-20 13:03] LABS: Bilirubin Direct < 0.2 mg/dL (0-0.2); Bilirubin Indirect, Calculated 0.1 mg/dL (0.2-0.8)
--- NOTE | 2023-12-20 13:33 | RAD REPORT ---
EXAM DESCRIPTION: [place]re[place] Single View12/20/2023 12:57 pm CLINICAL HISTORY: CHEST PAIN COMPARISON: Chest Single View dated 09/30/2022; Chest Single View dated 10/30/2020; Chest Single View da max 09/17/2020; Chest Single View dated 11/07/2019 TECHNIQUE: Portable AP view of the chest. FINDINGS: Right Port-A-Cath in place. The lungs are clear. No pneumothorax or effusion. The cardiom ediastinal contours are unremarkable. IMPRESSION: No acute cardiopulmonary process.
--- NOTE | 2023-12-20 14:30 | EDPHYS ---
Physician Documentation [facility] Name: Maribel Soto Age: 58 yrs Sex: Female : 1965 Arrival Date: 12/20/2023 Time: 11:38 Bed 18 Private MD: ED Physician Lloyd Best HPI: 12/19 12:06 This 58 yrs old Female presents to ER via Ambulatory with complaints of Chest Pain, rt Shortness Of Breath, Vomiting - shakiness. 12:06 Patient presents to the ED with chest pain, shortness of breath, worse with exertion rt over the past few weeks, has been worsening over the past 24 hours. It does get better with rest. She reports that clammy, lightheaded, nauseated. Denies other acute complaints at this time, symptoms are moderate in severity, no other aggravating or alleviating factors.. Historical: - Allergies: 11:54 Baclofen; hb 11:54 Bactrim; hb 11:54 Opana; hb 11:54 PENICILLINS; hb 11:54 Zofran; hb - PMHx: 11:54 Anxiety; Asthma; Chronic pain; Diverticulitis; Fibromyalgia; Bryce; Lupus; hb Migraines; Seizures; Ulcers; - Immunization history:: Adult Immunizations up to date. - Infectious Disease History:: Denies. - Family history:: not pertinent. - Social history:: Smoking status: Patient denies any tobacco usage or history of. ROS: 12:06 Constitutional: Negative for fever, chills, and weight loss, MS/Extremity: Negative for rt injury and deformity, Skin: Negative for injury, rash, and discoloration, Neuro: Negative for headache, weakness, numbness, tingling, and seizure, 12:06 Cardiovascular: Positive for chest pain, Negative for edema, 12:06 Respiratory: Positive for shortness of breath, Negative for cough, 12:06 Abdomen/GI: Positive for nausea, Negative for abdominal pain, Exam: 12:06 Constitutional: This is a well developed, well nourished patient who is awake, alert, rt and in no acute distress. Head/Face: Normocephalic, atraumatic. Chest/axilla: Normal chest wall appearance and motion. Nontender with no deformity. No lesions are appreciated. Cardiovascular: Regular rate and rhythm with a normal S1 and S2. No gallops, murmurs, or rubs. Normal PMI, no JVD. No pulse deficits. Respiratory: Lungs have equal breath sounds bilaterally, clear to auscultation and percussion. No rales, rhonchi or wheezes noted. No increased work of breathing, no retractions or nasal flaring. Abdomen/GI: Soft, non-tender, with normal bowel sounds. No distension or tympany. No guarding or rebound. No evidence of tenderness throughout. Skin: Warm, dry with normal turgor. Normal color with no rashes, no lesions, and no evidence of cellulitis. MS/ Extremity: Pulses equal, no cyanosis. Neurovascular intact. Full, normal range of motion. Neuro: Awake and alert, GCS 15, oriented to person, place, time, and situation. Cranial nerves II-XII grossly intact. Motor strength 5/5 in all extremities. Sensory grossly intact. Cerebellar exam normal. Normal gait. 12:14 ECG was reviewed by the Attending Physician. rt Vital Signs: 11:52 BP 152 / 106; Pulse 96; Resp 19; Temp 98.1(O); Pulse Ox 100% on R/A; Weight 117.93 kg; hb Height 5 ft. 9 in. ; Pain 8/10; 13:59 BP 129 / 86; Pulse 79; Resp 13; Pulse Ox 100% ; bp 14:43 BP 125 / 94; Pulse 74; Resp 13; Pulse Ox 99% ; bp 15:58 BP 135 / 91; Pulse 87; Resp 20; Pulse Ox 99% ; bp 11:52 Body Mass Index 38.39 (117.93 kg, 175.26 cm) hb 11:52 Pain Scale: Adult hb MDM: 11:54 Patient medically screened. rt 14:30 Differential diagnosis: ACS, pneumonia, pneumothorax. HEART Score: History: Highly rt Suspicious (2), ECG: Non specific repolarization disturbance / LBTB / PM (1), Age: > 45 and < 65 years (1), Risk Factors: > or = 3 Risk factors for atherosclerotic disease (2), Troponin: < or = 1 x Normal Limit (0), Total Score = 6. The patient was given aspirin in the Emergency Department. Data reviewed: vital signs, nurses notes, lab test result(s), EKG, radiologic studies. Consideration of Admission/Observation Patient was admitted/placed on observation. Management of patient was discussed with the following: Hospitalist: Agrees to admit. Independent interpretation of the following test(s) in the Emergency Department X-Ray: My interpretation is No pneumonia seen on interpretation of x-ray images. Test considered but Not performed: CT: Low suspicion for pulmonary embolism, CT angiogram not indicated. Care significantly affected by the following chronic conditions: Lupus. Counseling: I had a detailed discussion with the patient and/or guardian regarding the historical points, exam findings, and any diagnostic results supporting the discharge/admit diagnosis, lab results, radiology results, the need for further work-up and treatment in the hospital. Response to treatment: the patient's symptoms have markedly improved after treatment. 12/19 12:03 Order name: Basic Metabolic Panel; Complete Time: 13:03 rt 12/19 12:03 Order name: CBC with Diff; Complete Time: 13:03 rt 12/19 12:03 Order name: LFT's; Complete Time: 13:03 rt 12/19 12:03 Order name: Magnesium; Complete Time: 13:03 rt 12/19 12:03 Order name: NT PRO-BNP; Complete Time: 13:03 rt 12/19 12:03 Order name: Troponin HS; Complete Time: 13:03 rt 12/19 15:39 Order name: CBC with Automated Diff [facility] 12/19 15:39 Order name: CBC with Automated Diff [facility] 12/19 15:39 Order name: Comprehensive Metabolic Panel [facility] 12/19 15:39 Order name: Comprehensive Metabolic Panel [facility] 12/19 15:39 Order name: Troponin High Sensitivity [facility] 12/19 15:39 Order name: Troponin High Sensitivity [facility] 12/19 15:39 Order name: Troponin High Sensitivity [facility] 12/19 15:39 Order name: D-Dimer [facility] 12/19 12:03 Order name: XRAY Chest (1 view); Complete Time: 13:48 rt 12/19 15:40 Order name: Chest Abdomen Pelvis W Cont [facility] 12/19 15:40 Order name: Chest Abdomen Pelvis W Cont [facility] 12/19 12:03 Order name: EKG; Complete Time: 12:03 rt 12/19 15:39 Order name: CONS Physician Consult [facility] 12/19 12:03 Order name: Cardiac monitoring; Complete Time: 12:08 rt 12/19 12:03 Order name: EKG - Nurse/Tech; Complete Time: 12:08 rt 12/19 12:03 Order name: IV Saline Lock; Complete Time: 12:30 rt 12/19 12:03 Order name: Labs collected and sent; Complete Time: 12:30 rt 12/19 12:03 Order name: O2 Per Protocol; Complete Time: 12:08 rt 12/19 12:03 Order name: O2 Sat Monitoring; Complete Time: 12:08 rt EC:14 Rate is 89 beats/min. Rhythm is regular, Normal Sinus Rhythm with No ectopy. QRS [place] rt is Normal. [place] interval is normal. QRS interval is normal. QT interval is normal. No Q waves. T waves are Normal. No ST changes noted. Interpreted by me. Administered Medications: 12:30 Drug: Aspirin PO Chewable Tablet 324 mg PO once; 81 mg tablets x 4 Route: PO; bp 14:45 Follow up: Response: No adverse reaction bp 12:30 Drug: Promethazine IVP 12.5 mg IVP once Route: IVP; Site: Port-a-cath; bp 14:45 Follow up: Response: No adverse reaction bp 12:30 Drug: Nitroglycerin Sublingual 0.4 mg Sublingual once; every five minute if needed x3 bp Route: Sublingual; 14:44 Follow up: Response: No adverse reaction bp Disposition Summary: 12/20/23 14:30 Hospitalization Ordered Notes: Hospitalization Status: Observation rt Provider: Reece Lr rt Location: Telemetry/MedSurg (observation) rt Condition: Stable rt Problem: new rt Symptoms: have improved rt Bed/Room Type: Standard rt Room Assignment: 206(12/20/23 15:48) eb Diagnosis - Chest pain, unspecified rt Forms: - Medication Reconciliation Form rt - SBAR form rt - Leadership Thank You Letter rt Signatures: Dispatcher [employer] EDMS Desirae Hernandez RN RN Sadi Pond RN RN bp Brittney Mcdowell Ryan, MD MD rt Corrections: (The following items were deleted from the chart) 12:03 12:03 BASIC METABOLIC PANEL+C.LAB.BRZ ordered. EDMS EDMS 12: 12:03 CBC+H.LAB.BRZ ordered. EDMS EDMS 12: 12:03 HEPATIC FUNCTION+C.LAB.BRZ ordered. EDMS EDMS 12: 12:03 MAGNESIUM+C.LAB.BRZ ordered. EDMS EDMS 12: 12:03 PROBNP+C.LAB.BRZ ordered. EDMS EDMS 12: 12:03 Troponin High Sensitivity+C.LAB.BRZ ordered. EDMS EDMS 15:48 14:30 rt eb
--- NOTE | 2023-12-20 14:30 | ER ---
Nurse's Notes [facility] Name: aMribel Soto Age: 58 yrs Sex: Female : 1965 Arrival Date: 12/20/2023 Time: 11:38 Bed 18 Private MD: Diagnosis: Chest pain, unspecified Presentation: 12/19 11:52 Chief complaint: Intermittent dizziness, chest pressure and palpitations x 2 days. hb Coronavirus screen: At this time, the client does not indicate any symptoms associated with coronavirus-19. Ebola Screen: No symptoms or risks identified at this time. Initial Sepsis Screen: Does the patient meet any 2 criteria? No. Patient's initial sepsis screen is negative. Does the patient have a suspected source of infection? No. Patient's initial sepsis screen is negative. Risk Assessment: Do you want to hurt yourself or someone else? Patient reports no desire to harm self or others. Onset of symptoms was December 17, 2023. 11:52 Method Of Arrival: Ambulatory hb 11:52 Acuity: LILIAN 3 hb Triage Assessment: 12:00 General: Appears in no apparent distress. uncomfortable, Behavior is cooperative, bp appropriate for age, anxious. Pain: Complains of pain in chest. Cardiovascular: Reports chest pain, shortness of breath. GI: Reports nausea. Historical: - Allergies: 11:54 Baclofen; hb 11:54 Bactrim; hb 11:54 Opana; hb 11:54 PENICILLINS; hb 11:54 Zofran; hb - PMHx: 11:54 Anxiety; Asthma; Chronic pain; Diverticulitis; Fibromyalgia; Bryce; Lupus; hb Migraines; Seizures; Ulcers; - Immunization history:: Adult Immunizations up to date. - Infectious Disease History:: Denies. - Family history:: not pertinent. - Social history:: Smoking status: Patient denies any tobacco usage or history of. Screenin:34 [facility] ED Fall Risk Assessment (Adult) History of falling in the last 3 months, bp including since admission No falls in past 3 months (0 pts) Confusion or Disorientation No (0 pts) Intoxicated or Sedated No (0 pts) Impaired Gait Yes (1 pt) Mobility Assist Device Used No (0 pt) Altered Elimination No (0 pt) Score/Fall Risk Level 0 - 2 = Low Risk. Abuse screen: Denies threats or abuse. Denies injuries from another. Nutritional screening: No deficits noted. Tuberculosis screening: No symptoms or risk factors identified. Assessment: 12:00 General: Appears in no apparent distress. obese, Behavior is cooperative, appropriate bp for age, anxious. Pain: Pain does not radiate. Pain began suddenly. Cardiovascular: Rhythm is sinus rhythm. Respiratory: Airway is patent Respiratory effort is even, unlabored. 13:59 Reassessment: Patient appears in no apparent distress at this time. Patient is alert, bp oriented x 3, equal unlabored respirations, skin warm/dry/pink. 14:44 Reassessment: ADMIT INITIATED. bp 15:58 Reassessment: REPORT FAXED TO 206. bp Vital Signs: 11:52 BP 152 / 106; Pulse 96; Resp 19; Temp 98.1(O); Pulse Ox 100% on R/A; Weight 117.93 kg; hb Height 5 ft. 9 in. ; Pain 8/10; 13:59 BP 129 / 86; Pulse 79; Resp 13; Pulse Ox 100% ; bp 14:43 BP 125 / 94; Pulse 74; Resp 13; Pulse Ox 99% ; bp 15:58 BP 135 / 91; Pulse 87; Resp 20; Pulse Ox 99% ; bp 11:52 Body Mass Index 38.39 (117.93 kg, 175.26 cm) hb 11:52 Pain Scale: Adult hb ED Course: 11:42 Patient arrived in ED. ra3 11:47 Lloyd Best MD is Attending Physician. rt 11:54 Triage completed. hb 11:54 Arm band placed on. hb 11:59 Sadi Cazares, RN is Primary Nurse. bp 12:13 EKG done, by ED staff, reviewed by Lloyd Best MD. [email or web address] 12:31 Accessed Port-a-Cath. using accessed w/ #19 [place] needle, ,sterile technique, per hospital protocol. Clean \T\ dry. Dressing intact. Good blood return. Flushes easily. 12:34 Patient has correct armband on for positive identification. Provided Education on: N/A. bp Client placed on continuous cardiac and pulse oximetry monitoring. NIBP monitoring applied. healthcare economics manager on. Pulse ox on. NIBP on. 12:59 XRAY Chest (1 view) In Process Unspecified. EDMS 14:29 Reece Lr MD is Hospitalizing Provider. rt Administered Medications: 12:30 Drug: Aspirin PO Chewable Tablet 324 mg PO once; 81 mg tablets x 4 Route: PO; bp 14:45 Follow up: Response: No adverse reaction bp 12:30 Drug: Promethazine IVP 12.5 mg IVP once Route: IVP; Site: Port-a-cath; bp 14:45 Follow up: Response: No adverse reaction bp 12:30 Drug: Nitroglycerin Sublingual 0.4 mg Sublingual once; every five minute if needed x3 bp Route: Sublingual; 14:44 Follow up: Response: No adverse reaction bp Outcome: 14:30 Decision to Hospitalize by Provider. rt 16:51 Patient left the ED. iw Signatures: Dispatcher [employer] Hina Cormier RN RN iw Desirae Hernandez RN RN Sadi Pond RN RN bp Lloyd Best MD MD rt Pia Tsang [facility] Lorrie Willett 3
[2023-12-20] MEDS ORDERED: ONDANSETRON 4 MG/2 ML VIAL IV PRN (15:32)
[2023-12-20] MEDS ORDERED: ACETAMINOPHEN 500 MG TAB PO PRN (15:32)
[2023-12-20] MEDS ORDERED: ALBUTEROL 2.5 MG/3 ML NEB SOL NEB PRN (15:32)
[2023-12-20 17:28] VITALS: O2SAT 99
[2023-12-20] MEDS: NA CHLORIDE 0.9% 1,000 ML IV SCH (17:34)
[2023-12-20] MEDS: METOPROLOL TAR 25 MG TAB PO SCH (17:34)
[2023-12-20 17:45] VITALS: BMI 38.4
[2023-12-20] MEDS: MORPHINE 2 MG/ML SYR IV PRN (20:28)
[2023-12-20] MEDS: ATORVASTATIN 20 MG TAB PO SCH (20:28)
[2023-12-20] MEDS ORDERED: HYOSCYAMINE SULF 0.125 MG TAB PO PRN (20:38)
[2023-12-20] MEDS ORDERED: NARATRIPTAN HCL 2.5 MG PO PRN (20:38)
[2023-12-20] MEDS: HOME MED 1 EA UNK (Cyclosporine [Restasis] Droperette) OPTH SCH (21:00)
[2023-12-20] MEDS: ESZOPICLONE 2 MG PO SCH (21:00)
[2023-12-20] MEDS: hydrOXYzine HCL 25 MG TAB PO SCH (21:37)
[2023-12-20] MEDS: TIZANIDINE 4 MG TABLET PO SCH (21:37)
[2023-12-20] MEDS: TRAZODONE 50 MG TABLET PO SCH (21:37)
[2023-12-20] MEDS: ROSUVASTATIN 10 MG TAB PO SCH (21:38)
[2023-12-20] MEDS: METOCLOPRAMIDE 10 MG/2mL INJ IV PRN (21:53)
[2023-12-20] MEDS: QUETIAPINE 100MG TAB PO SCH (22:12)
[2023-12-21 06:14] LABS: Absolute Eosinophils 0.1 K/uL (0-0.5); Absolute Lymphocytes (CBC) 1.4 K/uL (0.7-4.9); Absolute Monocytes 0.4 K/uL (0.1-1.3); Basophils % 0.6 % (0-1.3); Eosinophils % 1.4 % (0-4.4); Hematocrit 34.3 % (36.0-45.0); Hemoglobin 11.8 g/dL (12.0-15.0); Lymphocytes % 36.5 % (15.3-44.8); MCH 30.4 pg (27.0-35.0); MCHC 34.3 g/dL (32.0-36.0); MCV 88.4 fL (80-100); MPV 7.4 fL (7.6-11.3); Monocytes % 9.5 % (3.3-12.3); Nucleated Red Blood Cells % 0.2 % (0-0); Platelets 217 thou/uL (152-406); RBC Red Blood Cell Count 3.88 M/uL (3.86-4.86); Red Cell Distribution Width 13.8 % (12.1-15.2)
[2023-12-21 06:25] LABS: ALT/SGPT 15 U/L (13-56); Albumin 3.3 g/dL (3.4-5.0); Albumin/Globulin Ratio 1.1 (1.1-1.8); Alkaline Phosphatase 100 U/L (45-117); BUN Blood Urea Nitrogen 19 mg/dL (7-18); Bicarbonate 26 mEq/L (21-32); Bilirubin Total 0.3 mg/dL (0.2-1.0); Glomerular Filtration Rate 63 ml/min (=/>90); Glucose Level 91 mg/dL (74-106); Protein, Total 6.3 g/dL (6.4-8.2); Sodium Level 140 mEq/L (136-145)
[2023-12-21 06:27] LABS: AST/SGOT < 10 U/L (15-37)
--- NOTE | 2023-12-21 07:33 | P.PN ---
Date of Service: 12/21/23 Subjective no chest pain on exam, Admitted for chest pain chest pain, elevated D-dimer CT chest neg PE, NPO for stress test in am Review of Systems Negative 10-point ROS is otherwise unremarkable Physical Examination - Physical Exam General: Alert oriented, HEENT: Atraumatic, PERRLA, Mucous membr. moist/pink Neck: Supple, 2+ carotid pulse no bruit, No LAD Respiratory: Respiration equal unlabored, Cardiovascular: Normal sinus rhythm, S1-S2 Gastrointestinal: Normal bowel sounds, No tenderness Musculoskeletal: No tenderness Integumentary: No rashes Neurological: Normal gait, Normal speech, Lymphatics: No axilla or inguinal lymphadenopathy Assessment and Plan Chest pain rule out NV Diabetes mellitus type [id number] with hyperglycemia Hypertension Hyperlipidemia Chronic back pain Plan: Chest pain rule out NV Elevated D-dimer Serial troponins negative Cardiology consult CT of the chest negative for pulmonary emboli Chest x-ray IMPRESSION: No acute cardiopulmonary process. Aspirin, antilipid 12/21 N.p.o. for stress test in the a.m. Diabetes mellitus type [id number] with hyperglycemia ACHS Accu-Chek, sign scale insulin Hypertension Currently with soft blood pressure, hold oral antihypertensive agents at this time Hyperlipidemia Chronic back pain Continue home medications once verified DVT PPX: Lovenox Code status: Full Discharge Plan: Home Plan to discharge in: 72 Hours - Advance Directives Does patient have a Living Will: No Does patient have a Durable POA for Healthcare: No - Code Status/Comfort Care Code Status Assessed: Yes (Full code) Critical Care: No Time Spent Managing Pts Care (In Minutes): 35 <Cammie Mojica - Last Filed: 12/21/23 12:31> Patient was seen and examined. Events of the last 24 hours have been noted. Spoke with with MCKAY regarding patient's clinical picture after evaluating and examining the patient independently. I performed a substantial part of the MDM during this patient's care today. I personally made or approved the documented management plan and acknowledge its risk of complications. I agree with the findings and documentation provided in the MCKAY's notes. Patient was seen by Cardiology and at this time patient is scheduled for stress test in the morning. <Reece Lr - Last Filed: 12/21/23 23:08>
[2023-12-21] MEDS: METFORMIN ER 500 MG TAB PO SCH (09:00)
[2023-12-21] MEDS: HOME MED 1 EA UNK (Cyclosporine [Restasis] Droperette) OPTH SCH (09:00)
[2023-12-21] MEDS: ASPIRIN EC 81 MG TAB PO SCH (09:45)
[2023-12-21] MEDS: LEVOTHYROXINE SOD 0.1 MG TAB PO SCH (09:45)
--- NOTE | 2023-12-21 10:09 | RAD REPORT ---
EXAM DESCRIPTION: CT - Chest Abdomen Pelvis W Cont - 12/21/2023 9:07 am CLINICAL HISTORY: chest pain; esophageal dysmotility COMPARISON: No comparisons TECHNIQUE: Thin axial CT images of the chest, abdomen, and pelvis, performed following intravenous a dministration of iodinated contrast. Multiplanar reformats were generated and reviewed. All CT scans are performed using dose optimization technique as appropriate and may include automated exposure control or mA/KV adjustment according to patient size. FINDINGS: The lungs are clear.No pleural or pericardial effusion.No intrathoracic adenopathy. The liver, spleen, pancreas, adrenal glands and kidneys are within normal limits. Sequelae of gastric bypass and distal colon resection. No bowel obstruction, free air, free fluid or abscess. Normal appendix. No pathologic lymphadenopathy in the abdomen or pelvis. No worrisome osseous finding. IMPRESSION: No acute or suspicious findings. Stable findings as above.
--- NOTE | 2023-12-21 10:51 | P.CNS ---
Date of Consult: 12/21/23 Chief Complaint: chest pain History of Present Illness: patient with PMH of DM, autoimmune disease, presented with dizzy spells for months but recently started having chest pressure with it, more in epigastric area, no radiation, no SOB, no [place], no dizzy spells, no syncope. Allergies Penicillins Allergy (Intermediate, Verified 09/18/20 00:33) Hives/Rash baclofen Allergy (Verified 09/18/20 00:33) Itching/Hives/Rash oxymorphone [From Opana] Allergy (Verified 09/18/20 00:33) Unknown ondansetron HCl [From Zofran] Adverse Reaction (Mild, Verified 09/18/20 00:33) vomitting eggs Allergy (Mild, Uncoded 09/03/13 20:07) Nausea/Vomiting Home Medications: RX: Promethazine Tab [Phenergan*] 50 mg PO Q6H PRN 11/21/12 RX: Hyoscyamine Sulfate 0.125 mg PO Q6H PRN 04/03/13 RX: Naratriptan HCl [Amerge] 2.5 mg PO BIDP PRN 04/03/13 RX: Eszopiclone 3 mg PO BEDTIME 09/18/20 RX: Tizanidine HCl 4 mg PO TID 09/18/20 Cyclosporine [Restasis] 0.05 % EACH EYE BID 12/20/23 Levothyroxine Sodium [Synthroid] 1 tab PO AC 12/20/23 RX: Hydroxyzine HCl [Atarax] 50 mg PO BID 12/20/23 RX: Metformin ER [Glucophage ER*] 500 mg PO DAILY 12/20/23 RX: Quetiapine Fumarate [Seroquel] 200 mg PO BEDTIME 12/20/23 RX: Rosuvastatin [Crestor*] 10 mg PO BEDTIME 12/20/23 RX: Sumatriptan [Imitrex*] 1 ml SQ BID PRN 12/20/23 RX: Trazodone [Desyrel*] 200 mg PO BEDTIME 12/20/23 - Past Medical/Surgical History Diabetic: No -: lupus -: diverticulitis -: fibromyalgia -: chronic fatigue -: Hashimotos's hypothyroidism -: anxiety, depression, bi-polar -: chronic migraines -: neuropathy -: asthma -: seizures -: partial hysterectomy -: gastric bypass -: appendectomy -: hernia repair x2 -: bleeding ulcer -: gastric bypass repair -: port a cath left chest - Family History Father Medical History: Hypertension, Other (see notes) Notes: Colitis Mother Medical History: Other (see notes) Notes: spine issues - Social History Smoking Status: Unknown if ever smoked Alcohol use: No CD- Drugs: No Caffeine use: Yes Place of Residence: Home Review of Systems 10-point ROS is otherwise unremarkable Physical Examination Temp Pulse Resp BP Pulse Ox 97.2 F 63 16 102/60 95 12/21/23 08:00 12/21/23 08:00 12/21/23 09:43 12/21/23 08:00 12/21/23 09:43 General: Alert, In no apparent distress HEENT: Atraumatic, PERRLA, Mucous membr. moist/pink, EOMI, Sclerae nonicteric Neck: Supple, 2+ carotid pulse no bruit, No LAD, Without JVD or thyroid abnormality Respiratory: Clear to auscultation bilaterally, Normal air movement Cardiovascular: Regular rate/rhythm, Normal S1 S2 Gastrointestinal: Normal bowel sounds, No tenderness Musculoskeletal: No tenderness Integumentary: No rashes Neurological: Normal gait, Normal speech, Normal tone, Normal affect Lymphatics: No axilla or inguinal lymphadenopathy Laboratory Data (last 24 hrs) 12/20/23 12/20/23 12:30 12:30 WBC 5.00 Hgb 13.0 Hct 39.4 Plt Count 234 Sodium 137 Potassium 4.0 BUN 18 Creatinine 1.46 H Glucose 115 H Magnesium 1.7 Total Bilirubin 0.3 AST 11 L ALT 19 Alkaline Phosphatase 112 - Problems (1) Chest pain Current Visit: Yes Status: Acute Plan: NPO after midnight for nuclear stress test (lexiscan in the morning) continue ASA and lipitor (2) HTN (hypertension) Current Visit: Yes Status: Acute Plan: continue metoprolol 25 mg po BID get Echo.
[2023-12-21] MEDS: INSULIN REGULAR (HUMAN) 100 UNIT/ML SQ SCH (11:30)
--- NOTE | 2023-12-21 22:53 | P.HP ---
Certification for Inpatient Patient admitted to: Observation With expected LOS: <2 Midnights Patient will require the following post-hospital care: None Practitioner: I am a practitioner with admitting privileges, knowledge of patient current condition, hospital course, and medical plan of care. Services: Services provided to patient in accordance with Admission requirements found in Title 42 Section 412.3 of the Code of Federal Regulations Patient History Date of Service: 12/20/23 Reason for admission: Chest pain History of Present Illness: Patient is a 58-year-old female came to the hospital with complaints of dizziness has been going on for the last few weeks. She said her symptoms progressed to having chest pain over the last couple of weeks. It has been waxing and waning and so she had recurring chest pain that was not improving. She decided to come into the emergency room for further evaluation. In the emergency room, her EKG was unremarkable and patient had normal troponins. Patient was seen by Cardiology and plan is for stress test in a.m.. At this time, patient will be admitted to the hospital for further evaluation. Will also plan with carotid Doppler in the morning. Allergies Penicillins Allergy (Intermediate, Verified 09/18/20 00:33) Hives/Rash baclofen Allergy (Verified 09/18/20 00:33) Itching/Hives/Rash oxymorphone [From Opana] Allergy (Verified 09/18/20 00:33) Unknown ondansetron HCl [From Zofran] Adverse Reaction (Mild, Verified 09/18/20 00:33) vomitting eggs Allergy (Mild, Uncoded 09/03/13 20:07) Nausea/Vomiting Home Medications: Promethazine Tab [Phenergan*] 50 mg PO Q6H PRN 11/21/12 Hyoscyamine Sulfate 0.125 mg PO Q6H PRN 04/03/13 Naratriptan HCl [Amerge] 2.5 mg PO BIDP PRN 04/03/13 Eszopiclone 3 mg PO BEDTIME 09/18/20 Tizanidine HCl 4 mg PO TID 09/18/20 Cyclosporine [Restasis] 0.05 % EACH EYE BID 12/20/23 Hydroxyzine HCl [Atarax] 50 mg PO BID 12/20/23 Levothyroxine Sodium [Synthroid] 1 tab PO AC 12/20/23 Metformin ER [Glucophage ER*] 500 mg PO DAILY 12/20/23 Quetiapine Fumarate [Seroquel] 200 mg PO BEDTIME 12/20/23 Rosuvastatin [Crestor*] 10 mg PO BEDTIME 12/20/23 Sumatriptan [Imitrex*] 1 ml SQ BID PRN 12/20/23 Trazodone [Desyrel*] 200 mg PO BEDTIME 12/20/23 - Past Medical/Surgical History Diabetic: No -: lupus -: diverticulitis -: fibromyalgia -: chronic fatigue -: Hashimotos's hypothyroidism -: anxiety, depression, bi-polar -: chronic migraines -: neuropathy -: asthma -: seizures -: partial hysterectomy -: gastric bypass -: appendectomy -: hernia repair x2 -: bleeding ulcer -: gastric bypass repair -: port a cath left chest - Family History Father Medical History: Hypertension, Other (see notes) Notes: Colitis Mother Medical History: Other (see notes) Notes: spine issues - Social History Smoking Status: Former smoker Alcohol use: No CD- Drugs: No Caffeine use: Yes Place of Residence: Home Review of Systems 10-point ROS is otherwise unremarkable Physical Examination - Vital Signs Temperature: 97.3 F Blood Pressure: 103/65 Pulse: 74 Respirations: 20 Pulse Ox (%): 98 - Physical Exam General: Alert, In no apparent distress, Oriented x3 HEENT: Atraumatic, PERRLA, Mucous membr. moist/pink, EOMI, Sclerae nonicteric Neck: Supple, 2+ carotid pulse no bruit, No LAD, Without JVD or thyroid abnormality Respiratory: Clear to auscultation bilaterally, Normal air movement Cardiovascular: Regular rate/rhythm, Normal S1 S2, No murmurs Gastrointestinal: Normal bowel sounds, Soft and benign, Non-distended, No tenderness Musculoskeletal: No clubbing, No swelling, No tenderness Integumentary: No rashes Neurological: Normal gait, Normal speech, Normal strength at 5/5 x4 extr, Normal tone, Normal affect Lymphatics: No axilla or inguinal lymphadenopathy - Studies Laboratory Data (last 24 hrs) 12/21/23 12/21/23 05:52 05:52 WBC 3.80 L Hgb 11.8 L D Hct 34.3 L Plt Count 217 Sodium 140 Potassium 4.0 BUN 19 H Creatinine 1.04 H Glucose 91 Total Bilirubin 0.3 AST < 10 L ALT 15 Alkaline Phosphatase 100 Assessment & Plan - Problems (Diagnosis) (1) H/O gastric bypass Current Visit: Yes Status: Acute (2) HTN (hypertension) Current Visit: Yes Status: Acute (3) Hypothyroidism Current Visit: No Status: Active (4) Systemic lupus erythematosus Current Visit: No Status: Active (5) Asthma Current Visit: Yes Status: Acute (6) Fibromyalgia Current Visit: Yes Status: Acute - Plan 1. Serial troponins and EKG 2. Appreciate Cardiology consultation 3. Echocardiogram and stress test in AM 4. Anti-platelet therapy, anti coagulation, beta-jaswinder, statin, and O2 as needed 5. IV morphine for pain 6. Nitro p.r.n. 7. resume thyroid meds Discharge Plan: Home Plan to discharge in: Greater than 2 days - Advance Directives Does patient have a Living Will: No Does patient have a Durable POA for Healthcare: No - Code Status/Comfort Care Code Status Assessed: Yes Code Status: Full Code Critical Care: No Time Spent Managing PTS Care (In Minutes): 35
[2023-12-22] MEDS: PROMETHAZINE 25 MG TABLET PO PRN (06:20)
--- NOTE | 2023-12-22 08:31 | RAD REPORT ---
EXAM DESCRIPTION: US - CP - 12/21/2023 11:37 pm CLINICAL HISTORY: Near syncope COMPARISON: C Spine Wo Con dated 08/13/2023 TECHNIQUE: Real-time sonographic grayscale, color duplex, and spectral wave Doppler evaluation of carotid systems was performed. FINDINGS: Normal high resistance waveforms are noted in both external carotid arteries. The common c arotid arteries and internal carotid arteries show normal low resistance waveforms. Mild smooth atherosclerotic plaque formation is noted at the right carotid bifurcation. Peak systolic velocity less than 125 cm/ sec bilaterally. ICA/CCA peak systolic ratios less than 2.0 bilaterally. Antegrade flow seen in both vertebral arteries. IMPRESSION: Mild atherosclerotic changes noted at the right carotid. Less than 50% stenosis of the right ICA. No evidence of hemodynamically significant stenosis on the l eft. Evaluation of carotid artery stenosis, if any, is reported based on consensus recommendations of the Society of Radiologists in Ultrasound (Yogi et al., Radiology, 2003)
[2023-12-22] MEDS: DOCUSATE NA 100 MG CAP PO ONE (09:19)
--- NOTE | 2023-12-22 09:58 | P.PN ---
Subjective Date of Service: 12/22/23 Chief Complaint: Chest pain Subjective: Improving (denies chest pain but c/o "migraine") Review of Systems 10-point ROS is otherwise unremarkable Neurological: Other ("migraine") Physical Examination - Vital Signs Temperature: 98.0 F Blood Pressure: 122/86 Pulse: 73 Respirations: 20 Pulse Ox (%): 97 - Physical Exam General: Alert, In no apparent distress, Oriented x3 HEENT: Atraumatic, Normocephalic, Other (periorbital rash (butterfly)) Neck: Supple Respiratory: Clear to auscultation bilaterally, Normal air movement Cardiovascular: No edema, Normal pulses, Regular rate/rhythm Capillary refill: <2 Seconds Gastrointestinal: Normal bowel sounds, Soft and benign Musculoskeletal: No clubbing, No swelling Integumentary: Other (periorbital) Neurological: Normal speech, Normal tone, Normal affect Lymphatics: No axilla or inguinal lymphadenopathy External genitalia: Deferred Rectal: Deferred Assessment And Plan - Plan Assessment & Plan - Problems (Diagnosis) (1) H/O gastric bypass Current Visit: Yes Status: Acute (2) HTN (hypertension) Current Visit: Yes Status: Acute (3) Hypothyroidism Current Visit: No Status: Active (4) Systemic lupus erythematosus Current Visit: No Status: Active (5) Asthma Current Visit: Yes Status: Acute (6) Fibromyalgia Current Visit: Yes Status: Acute - Plan 1. Serial troponins and EKG (negative x 3) 2. Appreciate Cardiology consultation - Dr. Arias following 3. Echocardiogram and stress test in AM 4. Anti-platelet therapy, anti coagulation, beta-jaswinder, statin, and O2 as needed 5. IV morphine for pain 6. Nitro p.r.n. 7. resume thyroid meds Hx of migraine uses triptans frequently stop triptans, hx of HTN and angina May need to try Ubrelvy/Qulipta Discharge Plan: Home Plan to discharge in: Greater than 2 days
--- NOTE | 2023-12-22 10:36 | P.PN ---
Subjective Date of Service: 12/22/23 Chief Complaint: Chest pain Subjective: No new changes, No C/O voiced, Tolerating diet, Ambulating, Improving Review of Systems 10-point ROS is otherwise unremarkable Physical Examination - Vital Signs Temperature: 98.0 F Blood Pressure: 122/86 Pulse: 73 Respirations: 20 Pulse Ox (%): 97 - Physical Exam General: Alert, In no apparent distress HEENT: Atraumatic, PERRLA, EOMI Neck: Supple, JVD not distended Respiratory: Clear to auscultation bilaterally, Normal air movement Cardiovascular: Regular rate/rhythm, Normal S1 S2 Gastrointestinal: Normal bowel sounds, No tenderness Musculoskeletal: No tenderness Integumentary: No rashes Neurological: Normal speech, Normal tone, Normal affect Lymphatics: No axilla or inguinal lymphadenopathy - Studies Medications List Reviewed: Yes Assessment And Plan - Current Problems (Diagnosis) (1) Chest pain Current Visit: Yes Status: Acute Plan: outpatient stress test with cardiology continue ASA and lipitor (2) HTN (hypertension) Current Visit: Yes Status: Acute Plan: lower metoprolol to 12.5 mg po BID get Echo.
[2023-12-22] MEDS: DIPHENHYDRAMINE 50 MG/ML VIAL IV ONE (10:49)
[2023-12-22] MEDS: KETOROLAC 30 MG/ML INJ IV ONE (10:50)
[2023-12-22] MEDS: NA CHLORIDE 0.9% 500 ML IV ONE (10:50)
--- NOTE | 2023-12-22 12:33 | EKG ---
Test Date: 2023-12-20 Test Time: 12:10:41 Mortgage Loan Underwriter: JAY MEASUREMENT RESULTS: Intervals: Rate: 89 DC: 188 QRSD: 88 QT: 370 QTc: 450 [place]: P: 34 DC: 188 QRS: 14 T: 60 INTERPRETIVE STATEMENTS: Normal sinus rhythm Normal ECG Compared to ECG 04/05/2023 17:35:43 No significant changes Electronically Signed On 12-22-23 12:30:37 CDT by Sukumar Kilgore
[2023-12-22 12:34] VITALS: BP 98/53; TEMP 97.8
--- NOTE | 2023-12-23 06:49 | ECHO ---
HEIGHT: 5 ft 9 in WEIGHT: 260 lb 0 oz DATE OF STUDY: 12/22/[address]: Reeec Lr MD 2-DIMENSIONAL: YES M.MODE: YES DOPPLER: YES COLOR FLOW: YES TDS: NO PORTABLE: YES DEFINITY: NO BUBBLE STUDY: NO DIAGNOSIS: CHEST PAIN CARDIAC HISTORY: CATHERIZATION: SURGERY: PROSTHETIC VALVE: PACEMAKER: MEASUREMENTS (cm) DIASTOLIC (NORMALS) SYSTOLIC (NORMALS) IVSd 1.0 (0.6-1.2) LA Diam 3.3 (1.9-4.0) LVEF 60-65% LVIDd 4.0 (3.5-5.7) LVIDs 2.3 (2.0-3.5) %FS 42% LVPWd 0.9 (0.6-1.2) Ao Diam 3.3 (2.0-3.7) 2 DIMENSIONAL ASSESSMENT: RIGHT ATRIUM: NORMAL LEFT ATRIUM: NORMAL RIGHT VENTRICLE: NORMAL LEFT VENTRICLE: NORMAL TRICUSPID VALVE: MILD TRICUPSID REGURGIATION MITRAL VALVE: NORMAL PULMONIC VALVE: NORMAL AORTIC VALVE: NORMAL PERICARDIAL EFFUSION: NONE AORTIC ROOT: NORMAL LEFT VENTRICULAR WALL MOTION: NORMAL DOPPLER/COLOR FLOW: SEE BELOW. COMMENTS: 1. NORMAL LEFT VENTRICULAR EJECTION FRACTION 60-65% WITH NORMAL WALL MOTION. 2. NORMAL DIASTOLIC FUNCTION. 3. MILD TRICUSPID REGURGITATION. TECHNOLOGIST: JULY SHABAZZ
== END 2023-12-22 15:05 | disposition home or self-care (01) | DRG 313 ==
LOC: ER 11:38 → ERHOLD 15:32 → 2ND 15:55 → OBSVTOIN 12-21 16:25
PROVIDERS: ADMIT Hospitalist; ATTEND Hospitalist
DX: R07.9 Chest pain, unspecified (principal); M79.7 Fibromyalgia; M32.9 Systemic lupus erythematosus, unspecified; E11.65 Type 2 diabetes mellitus with hyperglycemia; E11.40 Type 2 diabetes mellitus with diabetic neuropathy, unspecified; E78.5 Hyperlipidemia, unspecified; G89.29 Other chronic pain; M54.9 Dorsalgia, unspecified; I10 Essential (primary) hypertension; J45.909 Unspecified asthma, uncomplicated; G43.909 Migraine, unspecified, not intractable, without status migrainosus; Z88.0 Allergy status to penicillin; Z90.3 Acquired absence of stomach [part of]; Z88.1 Allergy status to other antibiotic agents; Z88.8 Allergy status to other drugs, medicaments and biological substances; Z90.49 Acquired absence of other specified parts of digestive tract; Z91.012 Allergy to eggs; Z79.890 Hormone replacement therapy; Z79.84 Long term (current) use of oral hypoglycemic drugs; Z79.899 Other long term (current) drug therapy; Z90.711 Acquired absence of uterus with remaining cervical stump; Z87.891 Personal history of nicotine dependence
CPT/HCPCS: 36415; 71045; 71260; 74177; 80048; 80053; 80076; 82947; 83735; 83880; 84484; 85025; 85379; 93005; 93306; 93880; 96374; 99285; G0378; J1200; J2270; J2550; J2765; J7030; J7040; Q0169; Q9967

== ENCOUNTER 2024-08-05 16:48 | Emergency (ER) | payer OTHER ==
--- NOTE | 2024-08-05 18:13 | RAD REPORT ---
EXAMINATION: CT ABDOMEN AND PELVIS WITHOUT CONTRAST CLINICAL INDICATION: Abdominal distention;Abd pain TECHNIQUE: CT abdomen and pelvis was performed, without IV contrast, as per department protocol. Axia l, sagittal and coronal reconstructions were obtained. One or more of the following dose reduction techniques were used: Automated exposure control, adjustment of the mA and kV according to the patien t size, and iterative reconstruction. Unless otherwise specified, incidental findings do not require dedicated imaging follow-up. COMPARISON: 09/30/2022 FINDINGS: The lack of intravenous contrast limits the sensitivity of this exam for evaluation of solid visceral organs, vascular structures, and retroperitoneum. LOWER CHEST: The visualized lung bases are clear. Postsurgical changes about the stomach. LIVER:Normal in size and contour. No focal lesion. Grossly unremarkable gallbladder. SPLEEN: Normal size. No focal lesion. PANCREAS: No mass, ductal dilation, or joyce-pancreatic fluid. ADRENALS: Normal; no mass. KIDNEYS AND URETERS: Normal size and contour. No hydronephrosis. URINARY BLADDER: Normal contour. GASTROINTESTINAL TRACT: No evidence of bowel obstruction, significant free fluid, free air or abscess . Postsurgical changes about the small intestine as well as the sigmoid colon. Moderate stool retention throughout the colon. APPENDIX: Appendix not visualized, but no inflammatory changes in region of appendix. LYMPH NODES: No lymphadenopathy. MUSCULOSKELETAL: No acute or suspicious osseous abnormality. IMPRESSION: Prominent fecal retention throughout the colon.
[2024-08-05] MEDS ORDERED: NA CHLORIDE 0.9% 1,000 ML ONE (18:16)
[2024-08-05] MEDS ORDERED: METOCLOPRAMIDE 10 MG/2mL INJ ONE (18:16)
[2024-08-05 19:23] LABS: Absolute Lymphocytes (CBC) 1.2 K/uL (0.7-4.9); Absolute Monocytes 0.3 K/uL (0.1-1.3); Absolute Neutrophil 2.6 K/uL (1.8-8.0); Basophils % 0.6 % (0-1.3); Hematocrit 36.3 % (36.0-45.0); Hemoglobin 12.7 g/dL (12.0-15.0); Lymphocytes % 28.2 % (15.3-44.8); MCH 30.1 pg (27.0-35.0); MCHC 34.9 g/dL (32.0-36.0); MCV 86.3 fL (80-100); MPV 7.1 fL (7.6-11.3); Monocytes % 8.1 % (3.3-12.3); Neutrophils % 62.1 % (41.7-73.7); Nucleated Red Blood Cells % 0.1 % (0-0); Platelets 224 thou/uL (152-406); RBC Red Blood Cell Count 4.21 M/uL (3.86-4.86); Red Cell Distribution Width 14.2 % (12.1-15.2)
[2024-08-05 19:40] LABS: Albumin 3.5 g/dL (3.4-5.0); Albumin/Globulin Ratio 1.1 (1.1-1.8); Anion Gap 7.8 mEq/L (5.0-15.0); Bilirubin Total 0.3 mg/dL (0.2-1.0); Globulin 3.1 g/dL (2.3-3.5); Potassium 3.8 mEq/L (3.5-5.1); Protein, Total 6.6 g/dL (6.4-8.2)
--- NOTE | 2024-08-05 20:16 | EDPHYS ---
Physician Documentation [facility] Name: Maribel Soto Age: 59 yrs Sex: Female : 1965 Arrival Date: 08/05/2024 Time: 16:48 Bed 8 Private MD: ED Physician Boom Burton HPI: 08/05 17:32 This 59 yrs old Female presents to ER via Ambulatory with complaints of ec2 Abdominal Pain. 17:33 Patient arrives today for evaluation of abdominal pain. Patient with history of ec2 fibromyalgia, chronic pain, arrives today for abdominal pain, states she has been having inability to have a bowel movement for the past 2 weeks. Previous history of colonic resection. Historical: - Allergies: 16:59 Baclofen; ll1 16:59 Bactrim; ll1 16:59 Opana; ll1 16:59 PENICILLINS; ll1 16:59 Zofran; ll1 - PMHx: 16:59 Anxiety; Asthma; Chronic pain; Diverticulitis; Fibromyalgia; Bryce; Lupus; ll1 Migraines; Seizures; Ulcers; gastroparesis (Ulcers); - PSHx: 16:59 bowel resections x 2 (Ulcers); ll1 17:02 gastric bypass with reversal; ll1 - Immunization history:: Adult Immunizations up to date. - Infectious Disease History:: Denies. - Social history:: Smoking status: Patient denies any tobacco usage or history of. ROS: 17:34 Constitutional: as per hpi ec2 Exam: 17:34 Constitutional: GEN: NAD Head: atraumatic Eyes: EOMI Ears: External ears are ec2 normal. CV: regular rate LUNGS: no respiratory distress ABD: non-distended, soft, not guarding, not rigid, generally tender SKIN: no evidence of rashes MSK: no evidence of trauma Vital Signs: 17:00 BP 133 / 101; Pulse 101; Resp 18; Temp 98; Pulse Ox 98% ; Weight 111.13 kg; Height 5 ll1 ft. 9 in. ; Pain 10/10; 19:26 BP 128 / 80; Pulse 74; Resp 18; Temp 98; Pulse Ox 98% ; Pain 6/10; bm8 20:22 BP 126 / 90; Pulse 67; Resp 18; Temp 98; Pulse Ox 98% ; Pain 7/10; bm8 17:00 Body Mass Index 36.18 (111.13 kg, 175.26 cm) ll1 17:00 Pain Scale: Adult ll1 19:26 Pain Scale: Adult bm8 20:22 Pain Scale: Adult bm8 Gervais Coma Score: 19:26 Eye Response: spontaneous(4). Motor Response: obeys commands(6). Verbal Response: bm8 oriented(5). Total: 15. 20:22 Eye Response: spontaneous(4). Motor Response: obeys commands(6). Verbal Response: bm8 oriented(5). Total: 15. MDM: 16:50 Medical Screening Exam initiated ec2 17:34 Data reviewed: vital signs, nurses notes. ED course: Patient arrives today for ec2 abdominal pain and constipation. Examination is revealing for abdominal TTP. Will obtain lab work, CT machine. DDx includes constipation, obstruction.. 19:20 ED course: CT images show constipation. Giving enema as well as mag citrate. ec2 03 17:05 Order name: CBC with Diff; Complete Time: 20:00 ec2 08/05 17:05 Order name: CMP; Complete Time: 20:00 ec2 08/05 17:05 Order name: CT Abd/Pelvis - Without Contrast; Complete Time: 18:24 ec2 08/05 17:05 Order name: IV; Complete Time: 19:29 ec2 Administered Medications: 19:28 Drug: metoCLOPramide IVP 10 mg IVP once; over 1 to 2 minutes Route: IVP; Site: 8 Port-a-cath; 20:25 Follow up: Response: No adverse reaction bm8 19:28 Drug: NS 0.9% IV 1000 ml IV at 1000 ml once; to be given as a bolus over 60 minutes bm8 Route: IV; Rate: 1000 ml; Site: Port-a-cath; 20:25 Follow up: Response: No adverse reaction; IV Status: Completed infusion bm8 20:22 Not Given (Patient Refused): magnesium citrateliquid 300 ml PO once bm8 20:22 Not Given (Patient Refused): fleet [id number] ml WI once bm8 20:24 Drug: HEParin Flush (100 units/mL) 500 units IVP once; for Port-a-cath packing Route: bm8 IVP; Site: Port-a-cath; 20:24 Follow up: Response: No adverse reaction bm8 Disposition Summary: 08/05/24 20:16 Discharge Ordered Notes: Location: Home ec2 Condition: Stable ec2 Diagnosis - Constipation, unspecified ec2 Followup: ec2 - With: Private Physician - When: - Reason: Re-evaluation by your physician Discharge Instructions: - Discharge Summary Sheet ec2 - Constipation, Adult ec2 Forms: - Medication Reconciliation Form ec2 - Antibiotic Education ec2 - Prescription Opioid Use ec2 - Patient Portal Instructions ec2 - Leadership Thank You Letter ec2 Prescriptions: - Lactulose 10 gram/15 mL Oral Solution - take 30 milliliters ORAL route once daily; 300 milliliter; Refills: 0, Product ec2 Selection Permitted Signatures: Dispatcher [employer] EDCompa Gonzales, RN RN ll1 Boom Burton MD MD ec2 Aleks Meyer RN RN bm8 Corrections: (The following items were deleted from the chart) 17:05 17:05 CBC+H.LAB.BRZ ordered. EDMS EDMS 17:05 17:05 COMPREHENSIVE METABOLIC PANEL+C.LAB.BRZ ordered. EDMS EDMS 17:06 17:05 Abdomen Pelvis Wo Con+CT.RAD.BRZ ordered. EDMS EDMS
--- NOTE | 2024-08-05 20:16 | ER ---
Nurse's Notes [facility] Name: Maribel Soto Age: 59 yrs Sex: Female : 1965 Arrival Date: 08/05/2024 Time: 16:48 Bed 8 Private MD: Diagnosis: Constipation, unspecified Presentation: 08/05 17:00 Chief complaint: Patient states: No BM for 2 weeks. + abdominal pain with N/V now. ll1 Coronavirus screen: Client denies travel out of the [place] in the last 14 days. At this time, the client does not indicate any symptoms associated with coronavirus-19. Ebola Screen: Patient denies travel to an Ebola-affected area in the 21 days before illness onset. Initial Sepsis Screen: Does the patient meet any 2 criteria? No. Patient's initial sepsis screen is negative. Does the patient have a suspected source of infection? No. Patient's initial sepsis screen is negative. Risk Assessment: Do you want to hurt yourself or someone else? Patient reports no desire to harm self or others. Onset of symptoms was July 23, 2024. 17:00 Method Of Arrival: Ambulatory 1 17:00 Acuity: LILIAN 3 ll1 Triage Assessment: 17:01 General: Appears uncomfortable, ill, Behavior is calm, cooperative, appropriate for ll1 age. Pain: Complains of pain in abdomen Quality of pain is described as pressure. Neuro: No deficits noted. GI: Reports lower abdominal pain, upper abdominal pain, bloating, constipation, nausea, vomiting. Historical: - Allergies: 16:59 Baclofen; ll1 16:59 Bactrim; ll1 16:59 Opana; ll1 16:59 PENICILLINS; ll1 16:59 Zofran; ll1 - PMHx: 16:59 Anxiety; Asthma; Chronic pain; Diverticulitis; Fibromyalgia; Bryce; Lupus; ll1 Migraines; Seizures; Ulcers; gastroparesis (Ulcers); - PSHx: 16:59 bowel resections x 2 (Ulcers); ll1 17:02 gastric bypass with reversal; ll1 - Immunization history:: Adult Immunizations up to date. - Infectious Disease History:: Denies. - Social history:: Smoking status: Patient denies any tobacco usage or history of. Screenin:26 [facility] ED Fall Risk Assessment (Adult) History of falling in the last 3 months, bm8 including since admission No falls in past 3 months (0 pts) Confusion or Disorientation No (0 pts) Intoxicated or Sedated No (0 pts) Impaired Gait No (0 pts) Mobility Assist Device Used No (0 pt) Altered Elimination No (0 pt) Score/Fall Risk Level 0 - 2 = Low Risk Oriented to surroundings, Maintained a safe environment, Educated pt \T\ family on fall prevention, incl call for assistance when getting out of bed, Assessed \T\ reinforced patient's understanding of fall precautions, Hourly rounding (assess needs \T\ fall precautionary measures) done, Used ambulatory aids as needed (educated on \T\ assisted with), Used gait belt as appropriate. Abuse screen: Denies threats or abuse. Nutritional screening: No deficits noted. Tuberculosis screening: No symptoms or risk factors identified. Assessment: 17:32 Reassessment: No changes from previously documented assessment. Patient and/or family ll1 updated on plan of care and expected duration. Pain level reassessed. 19:26 Reassessment: Patient appears in no apparent distress at this time. Patient and/or bm8 family updated on plan of care and expected duration. Pain level reassessed. Patient is alert, oriented x 3, equal unlabored respirations, skin warm/dry/pink. General: Appears in no apparent distress. comfortable, Behavior is calm, cooperative, appropriate for age. GI: Bowel sounds hypoactive in right upper quadrant, left upper quadrant, right lower quadrant and left lower quadrant Abd is soft and non tender Reports constipation, nausea, Pain is 6 out of 10 on a pain scale. 20:22 Reassessment: Patient appears in no apparent distress at this time. No changes from bm8 previously documented assessment. Patient and/or family updated on plan of care and expected duration. Pain level reassessed. Patient is alert, oriented x 3, equal unlabored respirations, skin warm/dry/pink. Vital Signs: 17:00 BP 133 / 101; Pulse 101; Resp 18; Temp 98; Pulse Ox 98% ; Weight 111.13 kg; Height 5 ll1 ft. 9 in. ; Pain 10/10; 19:26 BP 128 / 80; Pulse 74; Resp 18; Temp 98; Pulse Ox 98% ; Pain 6/10; bm8 20:22 BP 126 / 90; Pulse 67; Resp 18; Temp 98; Pulse Ox 98% ; Pain 7/10; bm8 17:00 Body Mass Index 36.18 (111.13 kg, 175.26 cm) ll1 17:00 Pain Scale: Adult ll1 19:26 Pain Scale: Adult bm8 20:22 Pain Scale: Adult bm8 [place] Coma Score: 19:26 Eye Response: spontaneous(4). Motor Response: obeys commands(6). Verbal Response: bm8 oriented(5). Total: 15. 20:22 Eye Response: spontaneous(4). Motor Response: obeys commands(6). Verbal Response: bm8 oriented(5). Total: 15. ED Course: 16:50 Patient arrived in ED. mr 16:50 Boom Burton MD is Attending Physician. ec2 17:01 Triage completed. ll1 17:01 Arm band placed on. ll1 17:32 Patient placed in an exam room, on a stretcher. ll1 17:37 Sadi aCzares, JAYDEN is Primary Nurse. bp 17:53 CT Abd/Pelvis - Without Contrast In Process Unspecified. EDMS 19:26 Patient has correct armband on for positive identification. Placed in gown. Bed in low bm8 position. Call light in reach. Side rails up X 1. Client placed on continuous cardiac and pulse oximetry monitoring. NIBP monitoring applied. Pulse ox on. NIBP on. Door closed. Noise minimized. Warm blanket given. Verbal reassurance given. Head of bed elevated. 19:26 No provider procedures requiring assistance completed. Initial lab(s) drawn, by pa, [facility] sent to lab. Accessed Port-a-Cath. Blood collected. Patient maintains SpO2 saturation greater than 95% on room air. 20:22 Provided Education on: post er care. bm8 20:22 IV discontinued, intact, bleeding controlled, No redness/swelling at site. Pressure bm8 dressing applied. Administered Medications: 19:28 Drug: metoCLOPramide IVP 10 mg IVP once; over 1 to 2 minutes Route: IVP; Site: bm8 Port-a-cath; 20:25 Follow up: Response: No adverse reaction bm8 19:28 Drug: NS 0.9% IV 1000 ml IV at 1000 ml once; to be given as a bolus over 60 minutes bm8 Route: IV; Rate: 1000 ml; Site: Port-a-cath; 20:25 Follow up: Response: No adverse reaction; IV Status: Completed infusion bm8 20:22 Not Given (Patient Refused): magnesium citrateliquid 300 ml PO once bm8 20:22 Not Given (Patient Refused): fleet [id number] ml VT once bm8 20:24 Drug: HEParin Flush (100 units/mL) 500 units IVP once; for Port-a-cath packing Route: bm8 IVP; Site: Port-a-cath; 20:24 Follow up: Response: No adverse reaction bm8 Medication: 19:26 VIS not applicable for this client. bm8 Outcome: 20:16 Discharge ordered by . ec2 20:22 Discharged to home ambulatory, bm8 20:22 Condition: stable 20:22 Discharge instructions given to patient, Instructed on discharge instructions, follow up and referral plans. safety practices, Demonstrated understanding of instructions, follow-up care, medications, Prescriptions given X 1, 20:25 Patient left the ED. bm8 Signatures: Dispatcher [employer] EDSnow Hanson, Reg Reg mr Sadi Cazares, RN RN Compa Swain RN RN ll1 Boom Burton MD MD ec2 Aleks Meyer, RN RN bm8
[2024-08-05] MEDS ORDERED: HEPARIN 500 UNIT/5 ML SYR IV ONE (20:19)
[2024-08-05 20:35] VITALS: TEMP 98; O2SAT 98
[2024-08-05 20:38] VITALS: BP 126/90
== END 2024-08-05 20:25 | disposition home or self-care (01) ==
LOC: ER 16:48
DX: K59.00 Constipation, unspecified (principal)
CPT/HCPCS: 96361; 85025; 36415; 80053; 74176; 96375; 96374; 99285; J2765; J1642; J7030